=== PATIENT | male | born 1935 | race Caucasian/White ===

== ENCOUNTER 2016-12-06 17:19 | Inpatient (IN) | payer OTHER, MEDICARE ==
[~2016-12-06] VITALS: Ht 170.2 cm; Wt 90.3 kg
--- NOTE | 2016-12-06 17:21 | NUR ---
PT AWARE OF 2.5 HR WAIT.
--- NOTE | 2016-12-06 17:58 | NUR ---
PT TO ED FOR "KINDEY PROBLEMS" PER PT AND FAMILY PT HAS BEEN HAVING INCREASING BACK PAIN FOR PAST 3 -4 DAYS, SAW PCP WHO DID BLOODWORK AND XRAY AND TOLD PT "YOURE IN KIDNEY FAILURE GO TO THE HOSPITAL." PT'S ONLY COMPLAINT IS BACK PAIN, REPORTING NORMAL URINATION, REPORTING MINIMAL SWELLING IN BILATERAL LEGS. ALSO REPROTING GENERALIZED FATIGUE "BUT I THINK ITS FROM TAKING TRAMADOL"
--- NOTE | 2016-12-06 19:15 | ED GENERAL ADULT ---
History of Present Illness General Chief Complaint: General Adult Stated Complaint: ? KIDNEY FAILURE Source: patient, family Exam Limitations: no limitations Vital Signs & Intake/Output Vital Signs & Intake/Output Vital Signs Date Time Temp Pulse Resp B/P Pulse O2 O2 Flow FiO2 Ox Delivery Rate 12/07 0035 98.9 12/07 0000 102.2 96 20 122/57 91 Room Air 12/06 2158 102.0 98 20 114/57 94 Room Air 12/06 1950 100.1 89 18 132/61 98 Room Air 12/06 1759 96.1 62 18 160/92 99 Room Air ED Intake and Output 12/07 0000 12/06 1200 Intake Total Output Total 275 Balance -275 Output, Urine 275 Patient 190 lb Weight Allergies Coded Allergies: No Known Allergies (12/06/16) Reconcile Medications Aspirin (Ecotrin*) 81 MG TABLET.DR 1 TAB PO DAILY HEART/BLOOD (Reported) Atorvastatin Calcium 40 MG TABLET 1 TAB PO DAILY CHOLESTEROL (Reported) Hydrochlorothiazide 12.5 MG TABLET 1 TAB PO DAILY DIURETIC (Reported) Moexipril HCl 15 MG TABLET 1 TAB PO DAILY BP (Reported) Tramadol HCl 50 MG TABLET 1 TAB PO Q6P PRN PAIN (Reported) Verapamil HCl (Verapamil ER Pm) (Unknown Strength) CAP24H.PCT (Unknown Dose) PO DAILY BP (Reported) Triage Note: PT TO ED FOR "KINDEY PROBLEMS" PER PT AND FAMILY PT HAS BEEN HAVING INCREASING BACK PAIN FOR PAST 3 -4 DAYS, SAW PCP WHO DID BLOODWORK AND XRAY AND TOLD PT "YOURE IN KIDNEY FAILURE GO TO THE HOSPITAL." PT'S ONLY COMPLAINT IS BACK PAIN, REPORTING NORMAL URINATION, REPORTING MINIMAL SWELLING IN BILATERAL LEGS. ALSO REPROTING GENERALIZED FATIGUE "BUT I THINK ITS FROM TAKING TRAMADOL" Triage Nurses Notes Reviewed? yes Onset: Gradual Timing: recent history Injury Environment: home No Modifying Factors: none HPI: 81-year-old male comes into emergency room for evaluation of general weakness and leg swelling bilaterally. Patient reportedly is in some Sick any failure. The primary care doctor KHLOE called here in the emergency room to talk a provider about admitting the patient for further evaluation. This is new onset for the patient. Denies any shortness of breath or chest pain. Patient admits to some right flank pain which is new. Denies any other associated symptoms. (AZUL HOLLIS,DEYA) Past History Travel History Traveled to [place] past 21 day No Medical History Any Pertinent Medical History? see below for history Cardiovascular: hypertension, HIGH CHOLESTEROL Musculoskeletal: CHRONIC BACK PAIN Surgical History Surgical History: non-contributory Psychosocial History What is your primary language Romanian Tobacco Use: Never used ETOH Use: denies use Illicit Drug Use: denies illicit drug use Family History Hx Contributory? No (DEYA NEAL) Review of Systems Review of Systems Constitutional: Reports: see HPI. EENTM: Reports: no symptoms. Respiratory: Reports: no symptoms. Cardiovascular: Reports: no symptoms. GI: Reports: no symptoms. Genitourinary: Reports: see HPI. Musculoskeletal: Reports: see HPI. Skin: Reports: no symptoms. Neurological/Psychological: Reports: no symptoms. Hematologic/Endocrine: Reports: no symptoms. Immunologic/Allergic: Reports: no symptoms. All Other Systems: Reviewed and Negative (DEYA NEAL) Physical Exam Physical Exam General Appearance: no apparent distress, alert Head: atraumatic, normal appearance Eyes: Bilateral: normal appearance, EOMI. Ears, Nose, Throat: normal pharynx, normal ENT inspection Neck: normal inspection, full range of motion Respiratory: normal breath sounds, no respiratory distress Gastrointestinal: soft Back: normal inspection Extremities: pedal edema (2+) Neurologic/Psych: awake, alert, oriented x 3, normal gait, normal mood/affect Skin: intact, normal color Core Measures ACS in differential dx? No CVA/TIA Diagnosis: No Severe Sepsis Present: No Septic Shock Present: No (DEYA NEAL) Progress Differential Diagnoses I considered the following diagnoses in my evaluation of the patient: Dehydration, post subjective uropathy, chronic kidney disease, renal tubular acidosis, nephritis, sepsis, electrolyte imbalance, Plan of Care: Orders Procedure Date/time Status Heart Healthy Diet 12/07 B Active Add-on Test (ER Only) 12/07 0014 Active Pathway - chart 12/07 5 Active House Staff 12/07 5 Active Code Status 12/07 5 Active Weight 12/07 UNK Active VTE Mechanical Prophylaxis 12/07 UNK Active Intake & Output 12/07 UNK Active CULTURE,URINE 12/06 2324 Active BLOOD CULTURE 12/06 2324 Active URINE TOTAL PROT/CREAT RATIO 12/06 2324 Complete CBC WITHOUT DIFFERENTIAL 12/06 2324 Complete BASIC ELECTROLYTES PLUS BUN&CR 12/06 2324 Complete ECHOCARDIOGRAM 12/06 2324 Active Saline Lock 12/06 2242 Active Misc Message 12/06 2242 Active ED Holding Orders 12/06 2242 Active Admit to inpatient 12/06 2242 Active Vital Signs 12/06 2242 Active Code Status 12/06 2242 Complete Patient Data 12/06 221 Active RAPID VIRAL INFLUENZA A 12/06 2208 Complete Intake & Output 12/06 2200 Active Add-on Test (ER Only) 12/06 193 Active TROPONIN LEVEL 12/06 1920 Complete B-TYPE NATRIURETIC PEP (BNP) 12/06 1920 Complete URINALYSIS 12/06 183 Complete EKG 12/06 182 Active COMPREHENSIVE METABOLIC PANEL 12/06 175 Complete CBC WITHOUT DIFFERENTIAL 12/06 175 Complete Current Medications Sig/Lacey Start time Last Medication Dose Stop Time Status Admin Oxycodone/ 1 TAB ONCE ONE 12/07 214 CAN Acetaminophen 12/07 215 (Percocet) Tramadol HCl 50 MG Q6 PRN 12/07 214 AC (Ultram) Laboratory Tests 12/07/16 0019: Ur Random Creatinine Pending, U Random Total Protein Pending 12/07/16 0019: Ur Random Creatinine 50.9 12/06/162338: Anion Gap 14, Estimated GFR 36 L, BUN/Creatinine Ratio 39.4 H, CBC w Diff NO MAN DIFF REQ, RBC 3.78 L, MCV 85.1, MCH 28.7, RDW 14.4, MPV 7.0 L, Gran % 93.3 H, Lymphocytes % 2.6 L, Monocytes % 4.1, Eosinophils % 0, Basophils % 0 L, Absolute Granulocytes 12.9 H, Absolute Lymphocytes 0.4 L, Absolute Monocytes 0.6, Absolute Eosinophils 0, Absolute Basophils 0, PUBS MCHC 33.7 12/06/16 2030: Urine Color YEL, Urine Clarity CLEAR, Urine pH 6.0, Ur Specific [place] 1.020, Urine Protein TRACE H, Urine Ketones NEG, Urine Nitrite NEG, Urine Bilirubin NEG, Urine Urobilinogen 0.2, Ur Leukocyte Esterase NEG, Ur Microscopic SEDIMENT EXAMINED, Urine RBC 1-3, Urine WBC 3-5 H, Urine Hemoglobin TRACE-INTACT H, Urine Glucose NEG 12/06/161920: Anion Gap 15, Estimated GFR 31 L, BUN/Creatinine Ratio 39.0 H, Glucose 125 H, Calcium 8.9, Total Bilirubin 0.6, AST 31, ALT 24, Alkaline Phosphatase 119, Troponin I 0.07, Lyv-I-Achkxknskbv Pept 1530 H, Total Protein 7.1, Albumin 3.3 L, Globulin 3.8, Albumin/Globulin Ratio 0.9 L, CBC w Diff NO MAN DIFF REQ, RBC 4.08 L, MCV 86.4, MCH 28.6, RDW 14.6 H, MPV 6.8 L, Gran % 91.5 H, Lymphocytes % 2.3 L, Monocytes % 6.0, Eosinophils % 0.2, Basophils % 0 L, Absolute Granulocytes 12.3 H, Absolute Lymphocytes 0.3 L, Absolute Monocytes 0.8 H, Absolute Eosinophils 0, Absolute Basophils 0, PUBS MCHC 33.0 Microbiology 12/07 18 URINE ROUT: Urine Culture - RECD 12/06 2358 BLOOD: Blood Culture - RECD 12/06 2338 BLOOD: Blood Culture - RECD Diagnostic Imaging: Viewed by Me: CT Scan, Ultrasound. Discussed w/RAD: CT Scan, Ultrasound. Radiology Impression: SERVICE DATE: 12/06/16 EXAM TYPE: US - US-EXT BILAT VENOUS DOPPLER EXAMINATION: US TRIPLEX LOWER EXTREMITY, BILATERAL CLINICAL INFORMATION: Bilateral lower extremity swelling. COMPARISON: None. TECHNIQUE: Color-flow triplex imaging with spectral analysis and compression Doppler were performed on the bilateral lower extremities. FINDINGS: Respiratory variation, normal compression and augmented flow are noted throughout the bilateral lower extremities. The visualized common femoral, superficial femoral, profunda femoral, popliteal and mid calf peroneal and posterior tibial venous segments demonstrate no evidence of deep venous thrombosis. A 1.6 x 0.9 x 1.9 cm Malcolm's cyst is identified within the left popliteal fossa. There is no right-sided Malcolm's cyst. IMPRESSION: No evidence of deep venous thrombosis involving the bilateral lower extremity veins. There is a 1.6 x 0.9 x 1.9 cm Malcolm's cyst within the left popliteal fossa. DICTATED BY: DARRIAN JENNINGS MD DATE/TIME DICTATED:12/06/161925 Initial ED EKG: normal intervals, normal p-waves, normal sinus rhythm, rate (99) (AZUL HOLLIS,DEYA) Departure Departure Disposition: STILL A PATIENT Condition: Stable Clinical Impression Primary Impression: Acute renal failure Referrals: MICHEAL ERICKSON,CARMINE Nunez (PCP/Family) Departure Forms: Customer Survey General Discharge Information Admission Note Spoke With: STEVEN MILAN MD Documentation of Exam: Documentation of any treatments & extenuating circumstances including Concerns Regarding Discharge (functional status, medication knowledge or non-compliance, living conditions, etc.) that warrant an admission rather than observation: Patient will require further workup for renal failure. Repeat labs. Renal consultation. IV fluids. (DEYA NEAL) PA/MACHINE PACK ASSEMBLER Co-Sign Statement Statement: ED Attending supervision documentation- [] I saw and evaluated the patient. I have also reviewed all the pertinent lab results and diagnostic results. I agree with the findings and the plan of care as documented in the PA's/MACHINE PACK ASSEMBLER's documentation. [x] I have reviewed the ED Record and agree with the PA's/MACHINE PACK ASSEMBLER's documentation. [] Additions or exceptions (if any) to the PAs/MACHINE PACK ASSEMBLER's note and plan are summarized below: [] (TRINITY ERICKSON,OMAIRA Hunter) Critical Care Note Critical Care Note Critical Care Time: non-applicable (DEYA NEAL)
--- NOTE | 2016-12-06 19:24 | NUR ---
PT TO AND FROM CAT SCAN VIA STRETCHER, IV EST #20 IN RIGHT FOREARM, BLOOD DRAWN AND SENT TO LAB BY THIS RN -SST,DANITZA,HELLEN,ZAPATA
[2016-12-06] MEDS ORDERED: VERAPAMIL ER P300 MG PO (19:31)
[2016-12-06 19:32] LABS: ABSOLUTE BASOPHIL COUNT 0 /CUMM (0.0-0.2); ABSOLUTE EOSINOPHIL COUNT 0 /CUMM (0.0-0.7); ABSOLUTE GRANULOCYTE CT 12.3 /CUMM (1.4-6.5); ABSOLUTE LYMPH COUNT 0.3 /CUMM (1.2-3.4); ABSOLUTE MONOCYTE COUNT 0.8 /CUMM (0.10-0.60); BASOPHIL % 0 % (0.0-2.0); EOSINOPHIL % 0.2 % (0-5); HEMATOCRIT 35.2 % (42-52); MEAN CORPUSCULAR HGB 28.6 PG (27.0-31.0); MEAN CORPUSCULAR VOLUME 86.4 FL (80.0-94.0); MEAN PLATELET VOLUME 6.8 FL (7.4-10.4); PLATELET COUNT 273 /CUMM (130-400); RBC DISTRIBUTION WIDTH 14.6 % (11.5-14.5); RED BLOOD CELL CT 4.08 /CUMM (4.70-6.10); WHITE BLOOD CELL COUNT 13.4 /CUMM (4.8-10.8)
[2016-12-06] MEDS ORDERED: HYDROCHLOROTH12.5 M2 PO (19:32)
[2016-12-06] MEDS ORDERED: ATORVASTATIN CA40 M1 PO (19:32)
--- NOTE | 2016-12-06 19:32 | ULTRASOUND REPORT ---
EXAMINATION: US TRIPLEX LOWER EXTREMITY, BILATERAL CLINICAL INFORMATION: Bilateral lower extremity swelling. COMPARISON: None. TECHNIQUE: Color-flow triplex imaging with spectral analysis and compression Doppler were performed on the bilateral lower extremities. FINDINGS: Respiratory variation, normal compression and augmented flow are noted throughout the bilateral lower extremities. The visualized common femoral, superficial femoral, profunda femoral, popliteal and mid calf peroneal and posterior tibial venous segments demonstrate no evidence of deep venous thrombosis. A 1.6 x 0.9 x 1.9 cm Malcolm's cyst is identified within the left popliteal fossa. There is no right-sided Malcolm's cyst. IMPRESSION: No evidence of deep venous thrombosis involving the bilateral lower extremity veins. There is a 1.6 x 0.9 x 1.9 cm Malcolm's cyst within the left popliteal fossa.
[2016-12-06] MEDS ORDERED: TRAMADOL HCL50 M1 PO (19:36)
[2016-12-06] MEDS ORDERED: MOEXIPRIL HCL15 MG PO (19:36)
[2016-12-06] MEDS ORDERED: ASPIRIN EC81 M1 PO (19:37)
[2016-12-06 19:47] LABS: GRANULOCYTE % 91.5 % (42.2-75.2)
--- NOTE | 2016-12-06 20:32 | NUR ---
URINE TRIO SENT
--- NOTE | 2016-12-06 20:32 | NUR ---
PT GIVEN WATER
--- NOTE | 2016-12-06 22:01 | CT SCAN REPORT ---
EXAMINATION: CT ABDOMEN AND PELVIS WITHOUT CONTRAST CLINICAL INFORMATION: Back pain. Kidney failure. COMPARISON: None. TECHNIQUE: Multidetector volumetric imaging was performed from the superior aspect of the liver through the pubic symphysis. Sagittal and coronal reformatted images were obtained on the technologist's workstation. DLP: 458.58 mGy-cm. FINDINGS: LUNG BASES: Vascular calcification of coronary arteries. LIVER, GALLBLADDER, AND BILIARY TREE: The liver is normal in size, shape, and attenuation. No focal hepatic lesion or biliary ductal dilatation is present. Multiple partially calcified gallstones within the gallbladder. Largest gallstone measuring about 2 cm in diameter. No edema around the gallbladder. No bile duct dilatation. The extrahepatic CBD measures 6 mm. PANCREAS: Unremarkable. SPLEEN: Unremarkable. ADRENAL GLANDS: Unremarkable. KIDNEYS AND URETERS: The kidneys are normal in size, shape, and attenuation. No hydronephrosis, hydroureter, or calculi seen. No perinephric stranding. BLADDER: Unremarkable. GASTROINTESTINAL TRACT: No acute change of bowel. No diverticula. No bowel obstruction. No bowel wall thickening or edema. Moderate volume of scattered stool in the colon. The appendix is normal. No inflammatory change of the mesentery. There is a small amount of free fluid in the cul-de-sac ABDOMINAL WALL: Small fat-containing left inguinal hernia. LYMPH NODES: Normal. VASCULAR: Atherosclerotic vascular wall calcifications of the aorta and iliac vessels. No aneurysm. PELVIC VISCERA: Unremarkable. OSSEOUS STRUCTURES: Marked multilevel low degenerative change of spine with disc height narrowing and endplate spurs and facet joint arthrosis. IMPRESSION: No acute abnormality CT scan abdomen and pelvis.
--- NOTE | 2016-12-06 22:08 | NUR ---
TELMA FALK AT BEDSIDE FOR DISCUSSION ON PLAN OF CARE
--- NOTE | 2016-12-06 22:22 | NUR ---
PT MEDICATED WITH NS PER EMAR
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
--- NOTE | 2016-12-06 23:17 | NUR ---
REPORT RECEIVED. URINATED 175ML IN THE BOTTLE. ASSISTED BACK TO BED. RECHECKED TEMP 102.2 TYMPANIC. TYLENOL 650MG PO GIVEN PER VERBAL ORDER FROM HOUSE STAFF.
--- NOTE | 2016-12-06 23:32 | NUR ---
PT'S ASSIGNMENT [id number]
[2016-12-06 23:49] LABS: ABSOLUTE BASOPHIL COUNT 0 /CUMM (0.0-0.2); ABSOLUTE EOSINOPHIL COUNT 0 /CUMM (0.0-0.7); ABSOLUTE GRANULOCYTE CT 12.9 /CUMM (1.4-6.5); ABSOLUTE LYMPH COUNT 0.4 /CUMM (1.2-3.4); ABSOLUTE MONOCYTE COUNT 0.6 /CUMM (0.10-0.60); BASOPHIL % 0 % (0.0-2.0); EOSINOPHIL % 0 % (0-5); HEMATOCRIT 32.2 % (42-52); MEAN CORPUSCULAR HGB 28.7 PG (27.0-31.0); MEAN CORPUSCULAR HGB CONC 33.7 G/DL (33.0-37.0); MEAN CORPUSCULAR VOLUME 85.1 FL (80.0-94.0); PLATELET COUNT 251 /CUMM (130-400); RBC DISTRIBUTION WIDTH 14.4 % (11.5-14.5); RED BLOOD CELL CT 3.78 /CUMM (4.70-6.10); WHITE BLOOD CELL COUNT 13.8 /CUMM (4.8-10.8)
[2016-12-06 23:50] LABS: GRANULOCYTE % 93.3 % (42.2-75.2)
--- NOTE | 2016-12-06 23:57 | RADIOLOGY REPORT ---
EXAMINATION: XR PORTABLE CHEST CLINICAL INFORMATION: Pulmonary edema. COMPARISON: None. TECHNIQUE: Portable view of the chest was obtained. 11:39 PM FINDINGS: Lung volume is low. This causes crowding of the bronchovascular markings. Bibasilar streaky opacities of subsegmental atelectasis. No dense consolidation or pleural effusion. IMPRESSION: Low lung volume causing prominence of the central hilar vessels. No overt pulmonary edema.
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
--- NOTE | 2016-12-07 00:27 | NUR ---
PT'S DAUGHTER FREDI WILLIAMSON CAN BE REACHED AT [phone]
--- NOTE | 2016-12-07 00:37 | NUR ---
FLU SWAB SENT.
[2016-12-07 00:45] VITALS: BP 110/70
--- NOTE | 2016-12-07 00:51 | NUR ---
BRNEDA SAVAGE Nurse Note by: TAYLOR CHONG I agree with the [employer] findings/evaluation of this patient's condition. Entered by: TAYLOR CHONG Date: 12/07/16 Time: 0051
--- NOTE | 2016-12-07 02:57 | RADIOLOGY REPORT ---
EXAMINATION: XR KNEE, LEFT CLINICAL INFORMATION: Left knee pain. Fever to 102. Swelling of the left knee. COMPARISON: None. TECHNIQUE: AP, oblique, and lateral views of the left knee. FINDINGS: No acute fracture or malalignment. Mild degenerative arthritis in lateral compartment is characterized and marginal osteophytes, joint space narrowing, and subchondral sclerosis. Mild degenerative arthritis is also present in the patellofemoral compartment. There is a small to moderate joint effusion. No osteolysis identified. Subcutaneous edema and soft tissue swelling are present at the knee diffusely. Calcific atherosclerosis is present within the popliteal and runoff arteries. IMPRESSION: 1. Small to moderate left knee joint effusion. Sensitivity for septic joint by radiograph is limited, though there should be enough fluid in the suprasellar pouch to allow for definitive evaluation by joint aspiration. 2. No acute fracture or malalignment. 3. 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
--- NOTE | 2016-12-07 06:00 | Admission Certification ---
Admission Certification Certification Statement - As attending physician, I certify that at the time of - admission, based on clinical presentation, severity of - symptoms, need for further diagnostic testing and - therapeutic interventions, and risk of adverse outcomes - without in-hospital treatment, in my clinical assessment, - this patient requires an acute hospital stay for a minimum - of two nights or longer. I have also considered psychsocial - factors such as support system, advanced age, financial - issues, cognitive issues, and failed out-patient treatments, - past re-admission history, safety of patient, and lack of - compliance as applicable. Specific rationale supporting this admission is: Acute renal failure in the setting of NSAID use. Fever of unclear etiology, needs further evaluation.
[2016-12-07 08:09] VITALS: BP 110/60
--- NOTE | 2016-12-07 10:00 | PN- Housestaff ---
Subjective Follow-up For: Acute renal failure Bilateral LE edema left knee effusionBilateral LE edema Subjective: Seen and examined patient, offers no complaints. Denies any pain in the knee, fever, chills, chest pain, shortness of breath Review of Systems Constitutional: Denies: chills, diaphoresis, fever, malaise, weakness, unexplained weight loss. Cardiovascular: Denies: chest pain, edema, orthopena, palpitations, peripheral edema, syncope. Respiratory: Denies: cough, hemoptysis, orthopnea, short of breath, sputum production, stridor, wheezing. Objective Last 24 Hrs of Vital Signs/I&O Vital Signs Date Time Temp Pulse Resp B/P Pulse O2 O2 Flow FiO2 Ox Delivery Rate 12/07 0809 97.6 80 20 110/60 93 Room Air 12/07 0045 97 Nasal 2.0L Cannula 12/07 0045 98.7 78 18 110/70 97 Nasal 2.0L Cannula 12/07 0035 98.9 12/07 0000 102.2 96 20 122/57 91 Room Air 12/06 2158 102.0 98 20 114/57 94 Room Air 12/06 1950 100.1 89 18 132/61 98 Room Air 12/06 1759 96.1 62 18 160/92 99 Room Air Intake & Output 12/07 1600 12/07 0800 12/07 0000 Intake Total 750 Output Total 500 275 Balance 250 -275 Intake, IV 150 Intake, Oral 600 Output, Urine 500 275 Patient 192 lb 190 lb Weight Physical Exam General Appearance: Alert, Oriented X3, Cooperative, No Acute Distress Cardiovascular: Regular Rate, Normal S1, Normal S2 Lungs: Clear to Auscultation, Normal Air Movement Extremities: mild swelling in left knee, no increased erythema, warmth noted. normal ROM Current Medications: Current Medications Sig/Lacey Start time Last Medication Dose Route Stop Time Status Admin Acetaminophen 0 .STK-MED ONE 12/06 2321 DC PO Heparin Sodium 5,000 UNIT Q8 12/07 0030 AC 12/07 (Porcine) SC 1249 Lidocaine 20 ML ONCE ONE 12/07 1230 DC ID 12/07 1231 Oxycodone/ 1 TAB ONCE ONE 12/07 0215 CAN Acetaminophen PO 12/07 0216 Oxycodone/ 1 TAB Q6P PRN 12/07 0215 AC 12/07 Acetaminophen PO 1253 Sodium Chloride 1,000 ML Q13H 12/07 0545 AC 12/07 IV 12/07 1844 0714 Sodium Chloride 1,000 ML BOLUS ONE 12/06 2215 DC 12/06 IV 12/06 2314 2222 Tramadol HCl 50 MG Q6 PRN 12/07 0215 AC PO Last 24 Hrs of Lab/Edilberto Results Last 24 Hrs of Labs/Mics: Laboratory Tests 12/07/16 1013: Fluid WBC Cancelled, Fld Total RBCs Counted Cancelled 12/07/16 0957: Troponin I 0.09 12/07/16 0019: Ur Random Creatinine 50.9 12/07/16 0019: Ur Random Creatinine 55.0, U Random Total Protein 9.5, Protein/Creatinin Ratio 0.1 12/06/16 2339: Anion Gap 14, Estimated GFR 36 L, BUN/Creatinine Ratio 39.4 H, CBC w Diff NO MAN DIFF REQ, RBC 3.78 L, MCV 85.1, MCH 28.7, RDW 14.4, MPV 7.0 L, Gran % 93.3 H, Lymphocytes % 2.6 L, Monocytes % 4.1, Eosinophils % 0, Basophils % 0 L, Absolute Granulocytes 12.9 H, Absolute Lymphocytes 0.4 L, Absolute Monocytes 0.6, Absolute Eosinophils 0, Absolute Basophils 0, PUBS MCHC 33.7 12/06/16 2030: Urine Color YEL, Urine Clarity CLEAR, Urine pH 6.0, Ur Specific [place] 1.020, Urine Protein TRACE H, Urine Ketones NEG, Urine Nitrite NEG, Urine Bilirubin NEG, Urine Urobilinogen 0.2, Ur Leukocyte Esterase NEG, Ur Microscopic SEDIMENT EXAMINED, Urine RBC 1-3, Urine WBC 3-5 H, Urine Hemoglobin TRACE-INTACT H, Urine Glucose NEG 12/06/16 1921: Anion Gap 15, Estimated GFR 31 L, BUN/Creatinine Ratio 39.0 H, Glucose 125 H, Calcium 8.9, Total Bilirubin 0.6, AST 31, ALT 24, Alkaline Phosphatase 119, Troponin I 0.07, Dgx-A-Jwjstluhnwj Pept 1530 H, Total Protein 7.1, Albumin 3.3 L, Globulin 3.8, Albumin/Globulin Ratio 0.9 L, CBC w Diff NO MAN DIFF REQ, RBC 4.08 L, MCV 86.4, MCH 28.6, RDW 14.6 H, MPV 6.8 L, Gran % 91.5 H, Lymphocytes % 2.3 L, Monocytes % 6.0, Eosinophils % 0.2, Basophils % 0 L, Absolute Granulocytes 12.3 H, Absolute Lymphocytes 0.3 L, Absolute Monocytes 0.8 H, Absolute Eosinophils 0, Absolute Basophils 0, PUBS MCHC 33.0 Microbiology 12/07 1222 BODY FLUID: Body Fluid Culture - COLB 12/07 1222 BODY FLUID: Gram Stain - COLB 12/07 1013 BODY FLUID: Body Fluid Culture - CAN Cancelled: DUPLICATE ORDER -- CANCEL PER NOEMY RN 12/07 1013 BODY FLUID: Gram Stain - CAN Cancelled: DUPLICATE ORDER -- CANCEL PER NOEMY RN 12/07 0019 URINE ROUT: Urine Culture - RECD 12/06 2359 BLOOD: Blood Culture - WKST 12/06 2339 BLOOD: Blood Culture - RES Assessment/Plan Assessment: 81-year-old gentleman with past history significant for hypertension and hyperlipidemia, current admission for worsening low back pain and left knee pain affecting ambulation. Was found to be febrile with elevated white count, elevated proBNP. Lower extremity Dopplers ruled out DVT showed left popliteal Malcolm's cyst CT abdomen pelvis were negative, left knee x-ray shows small to moderate left knee joint effusion. This morning patient is not complaining of knee pain, and offers no complaints. Plan fever ? septic knee blood cultures 1/2 growing GPC in chain and pairs after his knee is tapped will start on IV 1g vancomycin q24hrs left knee effusion elevated wbc, afebrile currently Ortho on board, appreciate recs will obtain knee tap and send for culture, cell count b/l Lateral lower extremity swelling Echo and Cardio consult placed for possible right heart failure trop neg x2, no new EKG changes Acute renal failure Creatinine improved with hydration, will continue to monitor Gives history of increased NSAIDs use, possibly secondary to analgesics use Hold NSAIDs and other nephrotoxics Continue to hold Hydrochlorothiazide and moexipril dvt ppx hep sc DNR/DNI Problem List: 1. HLD (hyperlipidemia) 2. HTN (hypertension) 3. Superficial burn of back 4. Bilateral lower extremity edema Pain Ratin Pain Location: na Pain Goal: Pain 4 or less Pain Plan: current regimen Tomorrow's Labs & Rationales: vanco level ? septic jt cbc/bep
--- NOTE | 2016-12-07 10:58 | NUR ---
NURSING NOTE: 1000; PATIENT HAS NOT HAD A BOWEL MOVEMENT IN TWO DAYS; OFFERED PATIENT TO CONTACT DR TO ORDER STOOL SOFTENERS AND HE REFUSED. WILL CONTINUE TO MONITOR.
--- NOTE | 2016-12-07 15:06 | PN- Att Addend ---
Attending Addendum Attending Brief Note Patient seen and examined. Plan of care discussed with the medical team and the patient. Available lab work and radiology test reports were reviewed. She continues to have left knee pain and swelling. Denies any fever. No other complaints today. Vital Signs Date Time Temp Pulse Resp B/P Pulse O2 O2 Flow FiO2 Ox Delivery Rate 12/07 808 97.6 80 20 110/60 93 Room Air 12/07 0045 97 Nasal 2.0L Cannula 12/07 0045 98.7 78 18 110/70 97 Nasal 2.0L Cannula 12/07 0035 98.9 12/07 0000 102.2 96 20 122/57 91 Room Air 12/06 2158 102.0 98 20 114/57 94 Room Air 12/06 1950 100.1 89 18 132/61 98 Room Air 12/06 1759 96.1 62 18 160/92 99 Room Air Intake & Output 12/07 1600 12/07 0800 12/07 0000 Intake Total 1080 750 Output Total 1150 500 275 Balance -70 250 -275 Intake, IV 600 150 Intake, Oral 480 600 Output, Urine 1150 500 275 Patient 192 lb 190 lb Weight Exam: General: Patient awake alert oriented without any distress CVS: S1 plus S2 without any murmur or gallops Chest: Few scattered crepitation without any wheeze. There is no respiratory distress. 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 Range of motion is intact. Laboratory Tests 12/07 12/07 12/07 12/07 1013 0957 0019 0019 Chemistry Troponin I (<0.11 ng/ml) 0.09 Other Body Source Fluid WBC Cancelled Fld Total RBCs Counted Cancelled Urines Ur Random Creatinine (mg/dL) 50.9 55.0 U Random Total Protein (0 - 12 mg/dL) 9.5 Protein/Creatinin Ratio (< 0.2) 0.1 12/069 2030 Chemistry Sodium (137 - 145 mmol/L) 140 Potassium (3.5 - 5.1 mmol/L) 4.2 Chloride (98 - 107 mmol/L) 99 Carbon Dioxide (22 - 30 mmol/L) 27 Anion Gap (5 - 16) 14 BUN (9 - 20 mg/dL) 71 H Creatinine (0.7 - 1.2 mg/dL) 1.8 H Estimated GFR (>60 ml/min) 36 L BUN/Creatinine Ratio (7 - 25 %) 39.4 H Hematology CBC w Diff NO MAN DIFF REQ WBC (4.8 - 10.8 /CUMM) 13.8 H RBC (4.70 - 6.10 /CUMM) 3.78 L Hgb (14.0 - 18.0 G/DL) 10.9 L Hct (42 - 52 %) 32.2 L MCV (80.0 - 94.0 FL) 85.1 MCH (27.0 - 31.0 PG) 28.7 RDW (11.5 - 14.5 %) 14.4 Plt Count (130 - 400 /CUMM) 251 MPV (7.4 - 10.4 FL) 7.0 L Gran % (42.2 - 75.2 %) 93.3 H Lymphocytes % (20.5 - 51.1 %) 2.6 L Monocytes % (1.7 - 9.3 %) 4.1 Eosinophils % (0 - 5 %) 0 Basophils % (0.0 - 2.0 %) 0 L Absolute Granulocytes (1.4 - 6.5 /CUMM) 12.9 H Absolute Lymphocytes (1.2 - 3.4 /CUMM) 0.4 L Absolute Monocytes (0.10 - 0.60 /CUMM) 0.6 Absolute Eosinophils (0.0 - 0.7 /CUMM) 0 Absolute Basophils (0.0 - 0.2 /CUMM) 0 PUBS MCHC (33.0 - 37.0 G/DL) 33.7 Urines Urine Color (YEL,AMB,STR) YEL Urine Clarity (CLEAR) CLEAR Urine pH (5.0 - 8.0) 6.0 Ur Specific [place] (1.001 - 1.035) 1.020 Urine Protein (NEG,<30 MG/DL) TRACE H Urine Ketones (NEG) NEG Urine Nitrite (NEG) NEG Urine Bilirubin (NEG) NEG Urine Urobilinogen (0.1 - 1.0 EU/dl) 0.2 Ur Leukocyte Esterase (NEG) NEG Ur Microscopic SEDIMENT EXAMINED Urine RBC (0 - 5 /HPF) 1-3 Urine WBC (0 - 2 /HPF) 3-5 H Urine Hemoglobin (NEG) TRACE-INTACT H Urine Glucose (N MG/DL) NEG 12/06 192 Chemistry Sodium (137 - 145 mmol/L) 140 Potassium (3.5 - 5.1 mmol/L) 3.9 Chloride (98 - 107 mmol/L) 96 L Carbon Dioxide (22 - 30 mmol/L) 29 Anion Gap (5 - 16) 15 BUN (9 - 20 mg/dL) 82 H Creatinine (0.7 - 1.2 mg/dL) 2.1 H Estimated GFR (>60 ml/min) 31 L BUN/Creatinine Ratio (7 - 25 %) 39.0 H Glucose (65 - 99 mg/dL) 125 H Calcium (8.4 - 10.2 mg/dL) 8.9 Total Bilirubin (0.2 - 1.3 mg/dL) 0.6 AST (17 - 59 U/L) 31 ALT (21 - 72 U/L) 24 Alkaline Phosphatase (< 127 U/L) 119 Troponin I (<0.11 ng/ml) 0.07 Dxp-[id number]-[id number] Pept (<125 pg/mL) 1530 H Total Protein (6.3 - 8.2 g/dL) 7.1 Albumin (3.5 - 5.0 g/dL) 3.3 L Globulin (1.9 - 4.2 gm/dL) 3.8 Albumin/Globulin Ratio (1.1 - 2.2 %) 0.9 L Hematology CBC w Diff NO MAN DIFF REQ WBC (4.8 - 10.8 /CUMM) 13.4 H RBC (4.70 - 6.10 /CUMM) 4.08 L Hgb (14.0 - 18.0 G/DL) 11.6 L Hct (42 - 52 %) 35.2 L MCV (80.0 - 94.0 FL) 86.4 MCH (27.0 - 31.0 PG) 28.6 RDW (11.5 - 14.5 %) 14.6 H Plt Count (130 - 400 /CUMM) 273 MPV (7.4 - 10.4 FL) 6.8 L Gran % (42.2 - 75.2 %) 91.5 H Lymphocytes % (20.5 - 51.1 %) 2.3 L Monocytes % (1.7 - 9.3 %) 6.0 Eosinophils % (0 - 5 %) 0.2 Basophils % (0.0 - 2.0 %) 0 L Absolute Granulocytes (1.4 - 6.5 /CUMM) 12.3 H Absolute Lymphocytes (1.2 - 3.4 /CUMM) 0.3 L Absolute Monocytes (0.10 - 0.60 /CUMM) 0.8 H Absolute Eosinophils (0.0 - 0.7 /CUMM) 0 Absolute Basophils (0.0 - 0.2 /CUMM) 0 PUBS MCHC (33.0 - 37.0 G/DL) 33.0 Microbiology Date/Time Procedure - Status Source Growth 12/07 1222 Body Fluid Culture - COLB BODY FLUID 12/07 1222 Gram Stain - COLB BODY FLUID 12/07 1013 Body Fluid Culture - CAN BODY FLUID Cancelled: DUPLICATE ORDER -- CANCEL PER NOEMY RN 12/07 1013 Gram Stain - CAN BODY FLUID Cancelled: DUPLICATE ORDER -- CANCEL PER NOEMY RN 12/07 0019 Urine Culture - RECD URINE ROUT 12/06 2359 Blood Culture - WKST BLOOD 12/06 2339 Blood Culture - RES BLOOD Knee x-ray 1. Small to moderate left knee joint effusion. Sensitivity for septic joint by radiograph is limited, though there should be enough fluid in the suprasellar pouch to allow for definitive evaluation by joint aspiration. 2. No acute fracture or malalignment. 3. 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 No overt pulmonary edema Assessment and problem list * Rule out septic arthritis left knee * Left knee effusion * Fever * Acute renal failure * History of hypertension Plan * Orthopedic evaluation for left knee; patient is a left knee effusion to rule out septic arthritis * Continue IV fluids for acute renal failure; recheck creatinine tomorrow * If Gram stain on the fluid is positive please start empiric antibiotic depending on her Gram stain report * If neutrophil count on the aspirate from left knee is more than 50,000 start empiric antibiotic
[2016-12-07 16:14] VITALS: BP 130/62
--- NOTE | 2016-12-07 17:50 | NUR ---
DR MCDOWELL CAME TO DRAW FLUID FROM PATIENT'S L KNEE PATIENT TOLERATED PROCEDURE WELL APPLIED ICE AFTERWARDS CONTINUE TO MONITOR MD DAWKINS NOTIFIED, AND ORDER FOR IV VANCO STARTED
--- NOTE | 2016-12-07 17:53 | Cons- Orthopedic ---
General Information and HPI Consulting Request Date of Consult: 12/07/16 Requested By: KAYLI ERICKSON,STEVEN Reason for Consult: LEFT KNEE EFFUSION WANT TO RULE OUT INFECTIOUS PROCESS History of Present Illness: PAIN LEFT KNEE HAD EFFUSION WITH ELEVATED WHITE BLOODCELL COUNT CALLED TO TAP THE LEFT KNEE Allergies/Medications Allergies: Coded Allergies: No Known Allergies (12/06/16) Home Med List: Aspirin (Ecotrin*) 81 MG TABLET.DR 1 TAB PO DAILY HEART/BLOOD (Reported) Atorvastatin Calcium 40 MG TABLET 1 TAB PO DAILY CHOLESTEROL (Reported) Hydrochlorothiazide 12.5 MG TABLET 1 TAB PO DAILY DIURETIC (Reported) Moexipril HCl 15 MG TABLET 1 TAB PO DAILY BP (Reported) Tramadol HCl 50 MG TABLET 1 TAB PO Q6P PRN PAIN (Reported) Verapamil HCl (Verapamil ER Pm) (Unknown Strength) CAP24H.PCT (Unknown Dose) PO DAILY BP (Reported) Past History Medical History Cardiovascular: hypertension, hyperlipidemia Surgical History Pertinent Surgical History: non-contributory Family History Relations & Conditions If Any: Relation not specified for: *No pertinent family history Psychosocial History Where Do You Live? Home Who Do You Live With? self Smoking Status: Former Smoker (Remote History) ETOH Use: denies use Illicit Drug Use: denies illicit drug use Functional Ability ADLs Independent: dressing, eating, toileting, bathing. IADLs Independent: shopping, housework, finances, food prep, telephone, transportation , medication admin. 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 Exam & Diagnostic Data Vital Signs and I&O Vital Signs Date Time Temp Pulse Resp B/P Pulse O2 O2 Flow FiO2 Ox Delivery Rate 12/07 1614 98.2 85 19 130/62 93 Room Air 12/07 0809 97.6 80 20 110/60 93 Room Air 12/07 0045 97 Nasal 2.0L Cannula 12/07 0045 98.7 78 18 110/70 97 Nasal 2.0L Cannula 12/07 0035 98.9 12/07 0000 102.2 96 20 122/57 91 Room Air 12/06 2158 102.0 98 20 114/57 94 Room Air 12/06 1950 100.1 89 18 132/61 98 Room Air 12/06 1759 96.1 62 18 160/92 99 Room Air Intake & Output 12/07 1600 12/07 0800 01/07 0000 12/06 1600 12/06 0800 12/06 0000 Intake Total 1080 750 Output Total 1150 500 275 Balance -70 250 -275 Intake, IV 600 150 Intake, Oral 480 600 Output, Urine 1150 500 275 Patient 192 lb 190 lb Weight Physical Exam: LEFT KNEE MODERATE EFFUSION MILD PAIN HAD EXCELLENT rom ALL LIGAMENTS OK NO ERYTHEMA Assessment/Plan Assessment/Plan 81 YEAR OLD MALE WITH LEFT KNEE EFFUSION; EVAL FOR SEPTIC ARTHRITIS PLAN: LEFT KNEE EFFUSION ASPIRATED. SENT FOR FLUID CULTURE, GRAM STAIN, CRYSTALS, CELL COUNT Consult Acknowledgment - Thank you for your consult request.
[2016-12-07 18:03] LABS: PT 15.6 SEC (9.4-12.5)
[2016-12-07 23:58] VITALS: BP 128/60
--- NOTE | 2016-12-08 | NUR ---
NURSING NOTE: MST WAS TAKING PTS VITALS AND INFORMED ME PTS O2 SAT WAS 85/86 ON RA AND HR 101, ALL OTHER VSS. THIS RN CAME TO ASSESS PT AND PUT PT ON 2L NC TO MAINTAIN SATS ABOVE 90%. PT LUNGS WERE DIMINISHED WITH SOME WHEEZING NOTED TO UPPER LOBES. PT DENIES SOB AND DIFFICULTY BREATHING O2 WAS RECHECKED A FEW MINUTES LATER AND O2 SAT CAME UP TO 94% ON 2L. PT HR 103. 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 WILL CONTINUE TO MONITOR.
[2016-12-08 08:20] LABS: ABSOLUTE BASOPHIL COUNT 0 /CUMM (0.0-0.2); ABSOLUTE EOSINOPHIL COUNT 0 /CUMM (0.0-0.7); ABSOLUTE GRANULOCYTE CT 9.7 /CUMM (1.4-6.5); ABSOLUTE LYMPH COUNT 0.7 /CUMM (1.2-3.4); ABSOLUTE MONOCYTE COUNT 1.2 /CUMM (0.10-0.60); BASOPHIL % 0.1 % (0.0-2.0); EOSINOPHIL % 0.2 % (0-5); GRANULOCYTE % 83.5 % (42.2-75.2); HEMATOCRIT 31.3 % (42-52); MEAN CORPUSCULAR HGB CONC 33.1 G/DL (33.0-37.0); MEAN CORPUSCULAR VOLUME 87.6 FL (80.0-94.0); MEAN PLATELET VOLUME 7.1 FL (7.4-10.4); PLATELET COUNT 217 /CUMM (130-400); RBC DISTRIBUTION WIDTH 14.6 % (11.5-14.5); RED BLOOD CELL CT 3.57 /CUMM (4.70-6.10); WHITE BLOOD CELL COUNT 11.6 /CUMM (4.8-10.8)
[2016-12-08 08:49] VITALS: BP 140/64
--- NOTE | 2016-12-08 08:53 | PN- Housestaff ---
Subjective Follow-up For: Acute renal failure Bilateral LE edema left knee effusionBilateral LE edema Subjective: Seen and examined patient, and planes of mild pain in his left knee. Denies fever, chills, shortness of breath. Review of Systems Constitutional: Denies: chills, diaphoresis, fever, malaise, weakness, unexplained weight loss. Cardiovascular: Denies: chest pain, edema, orthopena, palpitations, peripheral edema, syncope. Respiratory: Denies: cough, hemoptysis, orthopnea, short of breath, sputum production, stridor, wheezing. Musculoskeletal: Reports: joint pain. Objective Last 24 Hrs of Vital Signs/I&O Vital Signs Date Time Temp Pulse Resp B/P Pulse O2 O2 Flow FiO2 Ox Delivery Rate 12/08 0849 98.4 96 20 140/64 90 Room Air 12/08 0006 103 20 94 Nasal 2.0L Cannula 12/08 0002 94 Nasal 2.0L Cannula 12/08 0000 94 Nasal 2.0L Cannula 12/07 2358 97.8 101 20 128/60 86 Room Air 12/07 1614 98.2 85 19 130/62 93 Room Air 12/07 1600 93 Room Air Intake & Output 12/08 1600 12/08 0800 12/08 0000 Intake Total 2670 865 8264 Output Total 625 800 700 Balance 595 -200 620 Intake, IV 600 600 720 Intake, Oral 620 0 600 Number 1 Bowel Movements Output, Urine 625 800 700 Patient 191 lb Weight Physical Exam General Appearance: Alert, Oriented X3, No Acute Distress Cardiovascular: Normal S1, Normal S2 Lungs: Clear to Auscultation, Normal Air Movement Extremities: decreased swelling of left knee noted no erythema or increased warmth, patient able to flex knee Current Medications: Current Medications Sig/Lacey Start time Last Medication Dose Route Stop Time Status Admin Ampicillin 2,000 MG Q6H 12/08 1400 AC 12/08 Sodium Chloride 100 ML IV 1426 Aspirin Buffered 81 MG DAILY 12/09 1000 AC PO Atorvastatin Calcium 40 MG DAILY@1700 12/07 1735 AC 12/07 PO 2105 Heparin Sodium 5,000 UNIT Q8 12/07 0030 AC 12/08 (Porcine) SC 1211 Oxycodone/ 1 TAB Q6P PRN 12/07 0215 AC 12/08 Acetaminophen PO 1104 Patient Medication 1 UNIT ONE NR 12/07 1745 DC Teaching ED 12/07 1800 Silver Sulfadiazine 1 MIGNON BID 12/07 1415 AC 12/08 TOP 0824 Sodium Chloride 1,000 ML Q13H 12/07 2145 DC 12/07 IV 12/08 1044 2203 Sodium Chloride 1,000 ML Q13H 12/07 0545 DC 12/07 IV 12/07 1844 0714 Tramadol HCl 50 MG Q6 PRN 12/07 0215 AC PO Vancomycin HCl 1,000 MG DAILY@1800 12/07 1800 DC 12/07 Sodium Chloride 250 ML IV 1816 Last 24 Hrs of Lab/Edilberto Results Last 24 Hrs of Labs/Mics: Laboratory Tests 12/08/16 0628: Anion Gap 12, Estimated GFR > 60, BUN/Creatinine Ratio 30.9 H, Uric Acid 6.7, CBC w Diff MAN DIFF ORDERED, RBC 3.57 L, MCV 87.6, MCH 29.0, RDW 14.6 H, MPV 7.1 L, Gran % 83.5 H, Lymphocytes % 5.9 L, Monocytes % 10.3 H, Eosinophils % 0.2, Basophils % 0.1, Absolute Granulocytes 9.7 H, Segmented Neutrophils 83 H, Absolute Lymphocytes 0.7 L, Lymphocytes 6 L, Monocytes 4, Absolute Monocytes 1.2 H, Eosinophils 1, Absolute Eosinophils 0, Absolute Basophils 0, Metamyelocytes 3 H, Myelocytes 3 H, Platelet Estimate ADEQUATE, Polychromasia 1+, Hypochromic-Microcytic 1+, Anisocytosis 1+, PUBS MCHC 33.1, Random Vancomycin 6.2 12/07/16 1750: Fluid WBC 89478 H, Fld Total RBCs Counted 610 H 12/07/16 1750: Lymphocytes 3, % Normal PMNs 94, Fluid Glucose ND, Fluid Total Protein ND 12/07/16 1632: PT 15.6 H, INR 1.49 H Microbiology 12/08 1450 BLOOD: Blood Culture - RECD 12/08 1440 BLOOD: Blood Culture - RECD 12/07 1749 BODY FLUID: Body Fluid Culture - RES 12/07 1749 BODY FLUID: Gram Stain - RES Assessment/Plan Assessment: 81-year-old gentleman with past history significant for hypertension and hyperlipidemia, current admission for worsening low back pain and left knee pain affecting ambulation. Was found to be febrile with elevated white count, elevated proBNP. Lower extremity Dopplers ruled out DVT showed left popliteal Malcolm's cyst CT abdomen pelvis were negative, left knee x-ray shows small to moderate left knee joint effusion status post tap. Plan Left knee effusion Afebrile overnight blood cultures 1/2 growing GPC in chain and pairs and the second set growing alpha strep Body fluid shows WBC of 285,000 which rules out septic joint, body fluid culture prelim shows no growth. Ortho on board, appreciate recs We'll obtain ID consult Patient's mobility had decreased will obtain PT to evaluate and treat b/l Lateral lower extremity swelling Echo and Cardio consult placed for possible right heart failure trop neg x2, no new EKG changes Acute renal failure Creatinine improved with hydration, will continue to monitor Gives history of increased NSAIDs use, possibly secondary to analgesics use Hold NSAIDs and other nephrotoxics Continue to hold Hydrochlorothiazide and moexipril dvt ppx hep sc DNR/DNI Problem List: 1. Acute renal failure 2. HTN (hypertension) 3. HLD (hyperlipidemia) 4. Effusion of left knee joint Pain Ratin Pain Location: Not applicable Pain Goal: Pain 4 or less Pain Plan: Current regimen Tomorrow's Labs & Rationales: Septic joint will obtain BP and CBC
--- NOTE | 2016-12-08 12:46 | PN- Orthopedic ---
Subjective Subjective: Pt continues to c/o L knee pain. He is able to bear weight, but not without pain. Blood cultures are positive for alpha strep, but knee fluid cultures have no growth x 1 day. WBC count of fluid was 28K, which is not indicative of infection. He also c/o R sided lower back pain. Objective Vital Signs and I&Os Vital Signs Date Time Temp Pulse Resp B/P Pulse O2 O2 Flow FiO2 Ox Delivery Rate 12/08 0749 98.4 96 20 140/64 90 Room Air 12/08 0006 103 20 94 Nasal 2.0L Cannula 12/08 0002 94 Nasal 2.0L Cannula 12/08 0000 94 Nasal 2.0L Cannula 12/07 2358 97.8 101 20 128/60 86 Room Air 12/07 1614 98.2 85 19 130/62 93 Room Air 12/07 1600 93 Room Air Intake & Output 12/08 1600 12/08 0800 12/08 0000 12/07 1600 12/07 0800 12/07 0000 Intake Total 600 1320 1080 750 Output Total 674 162 2344 500 275 Balance -200 620 -70 250 -275 Intake, IV 600 720 600 150 Intake, Oral 0 600 480 600 Number 1 Bowel Movements Output, Urine 063 464 7286 500 275 Patient 191 lb 192 lb 190 lb Weight Physical Exam: General: Pt is awake and alert. Sitting in chair. NAD. Ext: L knee is mildly swollen and tender. No significant erythema. He has a few superficial wounds on his mid back, which started as a burn from a heating pad. There is mild exudate and erythema , but no significant drainage. LE sensation is intact. Strength of DF and PF are 5/5 bilaterally. No calf tenderness or edema noted bilaterally. *Of note, carlos catheter remains in place and appears to contain sediment in the tubing. Results Last 48 Hours of Labs: Laboratory Tests 12/08 12/07 12/07 0628 1750 1750 Chemistry Sodium (137 - 145 mmol/L) 143 Potassium (3.5 - 5.1 mmol/L) 3.5 Chloride (98 - 107 mmol/L) 100 Carbon Dioxide (22 - 30 mmol/L) 31 H Anion Gap (5 - 16) 12 BUN (9 - 20 mg/dL) 34 H Creatinine (0.7 - 1.2 mg/dL) 1.1 Estimated GFR (>60 ml/min) > 60 BUN/Creatinine Ratio (7 - 25 %) 30.9 H Hematology CBC w Diff MAN DIFF ORDERED WBC (4.8 - 10.8 /CUMM) 11.6 H RBC (4.70 - 6.10 /CUMM) 3.57 L Hgb (14.0 - 18.0 G/DL) 10.3 L Hct (42 - 52 %) 31.3 L MCV (80.0 - 94.0 FL) 87.6 MCH (27.0 - 31.0 PG) 29.0 RDW (11.5 - 14.5 %) 14.6 H Plt Count (130 - 400 /CUMM) 217 MPV (7.4 - 10.4 FL) 7.1 L Gran % (42.2 - 75.2 %) 83.5 H Lymphocytes % (20.5 - 51.1 %) 5.9 L Monocytes % (1.7 - 9.3 %) 10.3 H Eosinophils % (0 - 5 %) 0.2 Basophils % (0.0 - 2.0 %) 0.1 Absolute Granulocytes (1.4 - 6.5 /CUMM) 9.7 H Segmented Neutrophils (42.2 - 75.2 %) 83 H Absolute Lymphocytes (1.2 - 3.4 /CUMM) 0.7 L Lymphocytes (20.5 - 51.1 %) 6 L 3 Monocytes (1.7 - 9.3 %) 4 Absolute Monocytes (0.10 - 0.60 /CUMM) 1.2 H Eosinophils (0 - 5.0 %) 1 Absolute Eosinophils (0.0 - 0.7 /CUMM) 0 Absolute Basophils (0.0 - 0.2 /CUMM) 0 Metamyelocytes (0.0 - 1.0 %) 3 H Myelocytes (0 - 0 %) 3 H % Normal PMNs (%) 94 Platelet Estimate (ADEQUATE) ADEQUATE Polychromasia 1+ Hypochromic-Microcytic 1+ Anisocytosis 1+ PUBS MCHC (33.0 - 37.0 G/DL) 33.1 Other Body Source Fluid WBC (0 - 5 /CUMM) 42825 H Fld Total RBCs Counted (0 /CUMM) 610 H Fluid Glucose (mg/dL) ND Fluid Total Protein (g/dL) ND Toxicology Random Vancomycin (ug/ml) 6.2 01/12/07 1632 1013 0957 0019 0019 Chemistry Troponin I (<0.11 ng/ml) 0.09 Coagulation PT (9.4 - 12.5 SEC) 15.6 H INR (0.90 - 1.17) 1.49 H Other Body Source Fluid WBC Cancelled Fld Total RBCs Counted Cancelled Urines Ur Random Creatinine (mg/dL) 50.9 55.0 U Random Total Protein (0 - 12 mg/dL) 9.5 Protein/Creatinin Ratio (< 0.2) 0.1 12/06 12/06 4089 2030 Chemistry Sodium (137 - 145 mmol/L) 140 Potassium (3.5 - 5.1 mmol/L) 4.2 Chloride (98 - 107 mmol/L) 99 Carbon Dioxide (22 - 30 mmol/L) 27 Anion Gap (5 - 16) 14 BUN (9 - 20 mg/dL) 71 H Creatinine (0.7 - 1.2 mg/dL) 1.8 H Estimated GFR (>60 ml/min) 36 L BUN/Creatinine Ratio (7 - 25 %) 39.4 H Hematology CBC w Diff NO MAN DIFF REQ WBC (4.8 - 10.8 /CUMM) 13.8 H RBC (4.70 - 6.10 /CUMM) 3.78 L Hgb (14.0 - 18.0 G/DL) 10.9 L Hct (42 - 52 %) 32.2 L MCV (80.0 - 94.0 FL) 85.1 MCH (27.0 - 31.0 PG) 28.7 RDW (11.5 - 14.5 %) 14.4 Plt Count (130 - 400 /CUMM) 251 MPV (7.4 - 10.4 FL) 7.0 L Gran % (42.2 - 75.2 %) 93.3 H Lymphocytes % (20.5 - 51.1 %) 2.6 L Monocytes % (1.7 - 9.3 %) 4.1 Eosinophils % (0 - 5 %) 0 Basophils % (0.0 - 2.0 %) 0 L Absolute Granulocytes (1.4 - 6.5 /CUMM) 12.9 H Absolute Lymphocytes (1.2 - 3.4 /CUMM) 0.4 L Absolute Monocytes (0.10 - 0.60 /CUMM) 0.6 Absolute Eosinophils (0.0 - 0.7 /CUMM) 0 Absolute Basophils (0.0 - 0.2 /CUMM) 0 PUBS MCHC (33.0 - 37.0 G/DL) 33.7 Urines Urine Color (YEL,AMB,STR) YEL Urine Clarity (CLEAR) CLEAR Urine pH (5.0 - 8.0) 6.0 Ur Specific [place] (1.001 - 1.035) 1.020 Urine Protein (NEG,<30 MG/DL) TRACE H Urine Ketones (NEG) NEG Urine Nitrite (NEG) NEG Urine Bilirubin (NEG) NEG Urine Urobilinogen (0.1 - 1.0 EU/dl) 0.2 Ur Leukocyte Esterase (NEG) NEG Ur Microscopic SEDIMENT EXAMINED Urine RBC (0 - 5 /HPF) 1-3 Urine WBC (0 - 2 /HPF) 3-5 H Urine Hemoglobin (NEG) TRACE-INTACT H Urine Glucose (N MG/DL) NEG 12/06 1921 Chemistry Sodium (137 - 145 mmol/L) 140 Potassium (3.5 - 5.1 mmol/L) 3.9 Chloride (98 - 107 mmol/L) 96 L Carbon Dioxide (22 - 30 mmol/L) 29 Anion Gap (5 - 16) 15 BUN (9 - 20 mg/dL) 82 H Creatinine (0.7 - 1.2 mg/dL) 2.1 H Estimated GFR (>60 ml/min) 31 L BUN/Creatinine Ratio (7 - 25 %) 39.0 H Glucose (65 - 99 mg/dL) 125 H Calcium (8.4 - 10.2 mg/dL) 8.9 Total Bilirubin (0.2 - 1.3 mg/dL) 0.6 AST (17 - 59 U/L) 31 ALT (21 - 72 U/L) 24 Alkaline Phosphatase (< 127 U/L) 119 Troponin I (<0.11 ng/ml) 0.07 Exg-A-Dpovrncbphe Pept (<125 pg/mL) 1530 H Total Protein (6.3 - 8.2 g/dL) 7.1 Albumin (3.5 - 5.0 g/dL) 3.3 L Globulin (1.9 - 4.2 gm/dL) 3.8 Albumin/Globulin Ratio (1.1 - 2.2 %) 0.9 L Hematology CBC w Diff NO MAN DIFF REQ WBC (4.8 - 10.8 /CUMM) 13.4 H RBC (4.70 - 6.10 /CUMM) 4.08 L Hgb (14.0 - 18.0 G/DL) 11.6 L Hct (42 - 52 %) 35.2 L MCV (80.0 - 94.0 FL) 86.4 MCH (27.0 - 31.0 PG) 28.6 RDW (11.5 - 14.5 %) 14.6 H Plt Count (130 - 400 /CUMM) 273 MPV (7.4 - 10.4 FL) 6.8 L Gran % (42.2 - 75.2 %) 91.5 H Lymphocytes % (20.5 - 51.1 %) 2.3 L Monocytes % (1.7 - 9.3 %) 6.0 Eosinophils % (0 - 5 %) 0.2 Basophils % (0.0 - 2.0 %) 0 L Absolute Granulocytes (1.4 - 6.5 /CUMM) 12.3 H Absolute Lymphocytes (1.2 - 3.4 /CUMM) 0.3 L Absolute Monocytes (0.10 - 0.60 /CUMM) 0.8 H Absolute Eosinophils (0.0 - 0.7 /CUMM) 0 Absolute Basophils (0.0 - 0.2 /CUMM) 0 PUBS MCHC (33.0 - 37.0 G/DL) 33.0 Microbiology: 12/06 blood culture #1-alpha strep 12/06 blood culture #2-gram positive cocci 12/07 urine culture-NG x 1 day 12/07 gram stain of L knee fluid aspirate: many WBC's, no organisms identified. 12/07 Culture of L knee fluid aspirate: NG x 1 day 12/07 WBC count of L knee fluid aspirate: 28,500 Assessment/Plan Assessment/Plan Pt is an 81 yo M with a hx of HTN and HLD, who is now HD #2 with acute kidney injury and L knee pain. WBC of L knee aspirate is not indicative of infection. Gram stain is negative and cultures show NG x 1 day. Pt has been afebrile x 24 hours, but Blood cultures are positive. No indication for surgery at this time. Would recommend workup for another source of bacteremia. Suggest f/u of urine culture as it appears to contain some sediment. He also has a back wound that appears slightly red. Continue silvadene to that area. F/u ID recommendations for IV antibiotics.
--- NOTE | 2016-12-08 13:24 | Cons- Infect Disease ---
General Information and HPI Consulting Request Date of Consult: 12/08/16 Requested By: KAYLI ERICKSON,STEVEN Reason for Consult: Positive blood culture for gram-positive cocci in pairs and chains Source of Information: patient Exam Limitations: poor historian History of Present Illness: This is an 81-year-old man with a history of hypertension who developed right lower back pain approximately 1 week prior to admission, for which he took Advil , with minimal relief, followed by the acute onset of left knee pain after sudden flexion of the knee several days prior to admission, associated with low- grade fevers, chills and bilateral lower extremity edema for several days, admitted on December 06 after he was sent by his primary care physician after blood work obtained the day prior to admission revealed an elevated BUN/ creatinine of 92 and 2.9. On admission he was febrile to 102.2. O2 sat 91% on room air. Laboratory data revealed a white blood cell count of 13,000, BUN/ creatinine 82 and 2.1, with normal liver enzymes, proBNP 1530. Urinalysis 1-3 RBC/3-5 WBCs. Dopplers of both lower extremities revealed a 1.6 x 0.9 x 1.9 cm Malcolm's cyst within the left popliteal fossa. Chest x-ray revealed bibasilar atelectasis. CT of the abdomen and pelvis without contrast was negative for any acute process. An x-ray of the left knee revealed a small to moderate joint effusion, with mild degenerative arthritis. A Jacobsen was inserted with 100 mL of urine obtained. On December 07 a left knee arthrocentesis was performed, revealing 28,000 white blood cells. One blood culture was reported positive for gram-positive cocci in pairs and chains, and he was begun on Vancomycin. This morning a second set of blood cultures was also reported positive for gram- positive cocci in pairs and chains. He has defervesced and white blood cell count has decreased. He still notes mild right lower back pain but does not report left knee pain. He denies any prior problems with his lower back or left knee. He reports no GI, or respiratory symptoms. He last had dental work 2 months prior to admission and denies any weight loss. Allergies/Medications Allergies: Coded Allergies: No Known Allergies (12/06/16) Home Med List: Aspirin (Ecotrin*) 81 MG TABLET.DR 1 TAB PO DAILY HEART/BLOOD (Reported) Atorvastatin Calcium 40 MG TABLET 1 TAB PO DAILY CHOLESTEROL (Reported) Hydrochlorothiazide 12.5 MG TABLET 1 TAB PO DAILY DIURETIC (Reported) Moexipril HCl 15 MG TABLET 1 TAB PO DAILY BP (Reported) Tramadol HCl 50 MG TABLET 1 TAB PO Q6P PRN PAIN (Reported) Verapamil HCl (Verapamil ER Pm) (Unknown Strength) CAP24H.PCT (Unknown Dose) PO DAILY BP (Reported) Past History Travel History Traveled to [place] past 21 day No Medical History Cardiovascular: hypertension, hyperlipidemia History of MRSA: No History of VRE: No History of CDIFF: No Isolation History: Standard Surgical History Surgical History: non-contributory Family History Relations & Conditions If Any: Relation not specified for: *No pertinent family history Psychosocial History Where Do You Live? Home Who Do You Live With? self Smoking Status: Former Smoker (Remote History) ETOH Use: denies use Illicit Drug Use: denies illicit drug use Functional Ability ADLs Independent: dressing, eating, toileting, bathing. IADLs Independent: shopping, housework, finances, food prep, telephone, transportation , medication admin. 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 Denies: unexplained weight loss. Cardiovascular: Reports: peripheral edema. Denies: chest pain. Respiratory: Denies: cough, short of breath. GI: Reports: no symptoms. Genitourinary: Reports: no symptoms. All Other Systems: Reviewed and Negative Exam & Diagnostic Data Last 24 Hrs of Vital Signs/I&O Vital Signs Date Time Temp Pulse Resp B/P Pulse O2 O2 Flow FiO2 Ox Delivery Rate 12/08 0849 98.4 96 20 140/64 90 Room Air 12/08 0006 103 20 94 Nasal 2.0L Cannula 12/08 0002 94 Nasal 2.0L Cannula 12/08 0000 94 Nasal 2.0L Cannula 12/07 2358 97.8 101 20 128/60 86 Room Air 12/07 1614 98.2 85 19 130/62 93 Room Air 12/07 1600 93 Room Air Intake & Output 12/08 1600 12/08 0800 12/08 0000 Intake Total 600 1320 Output Total 800 700 Balance -200 620 Intake, IV 600 720 Intake, Oral 0 600 Number 1 Bowel Movements Output, Urine 800 700 Patient 191 lb Weight Physical Exam Other Physical Findings: He is awake and alert in no acute distress. He is afebrile. Skin reveals left lower back excoriation. HEENT exam is negative with upper and lower dentures. Neck is supple with no adenopathy. Lungs mild bilateral inspiratory wheezes. Heart regular rhythm with a 1/6 systolic ejection murmur. Abdomen is soft, nontender with positive bowel sounds. Back no CVA tenderness. Extremities 1-2+ edema both lower extremities; left knee swelling, with no erythema or tenderness and with normal range of motion. Neuro is without focality. Jacobsen catheter is in place. Last 24 Hours of Lab Results: Laboratory Tests 12/08 12/07 12/07 0628 1750 1750 Chemistry Sodium (137 - 145 mmol/L) 143 Potassium (3.5 - 5.1 mmol/L) 3.5 Chloride (98 - 107 mmol/L) 100 Carbon Dioxide (22 - 30 mmol/L) 31 H Anion Gap (5 - 16) 12 BUN (9 - 20 mg/dL) 34 H Creatinine (0.7 - 1.2 mg/dL) 1.1 Estimated GFR (>60 ml/min) > 60 BUN/Creatinine Ratio (7 - 25 %) 30.9 H Hematology CBC w Diff MAN DIFF ORDERED WBC (4.8 - 10.8 /CUMM) 11.6 H RBC (4.70 - 6.10 /CUMM) 3.57 L Hgb (14.0 - 18.0 G/DL) 10.3 L Hct (42 - 52 %) 31.3 L MCV (80.0 - 94.0 FL) 87.6 MCH (27.0 - 31.0 PG) 29.0 RDW (11.5 - 14.5 %) 14.6 H Plt Count (130 - 400 /CUMM) 217 MPV (7.4 - 10.4 FL) 7.1 L Gran % (42.2 - 75.2 %) 83.5 H Lymphocytes % (20.5 - 51.1 %) 5.9 L Monocytes % (1.7 - 9.3 %) 10.3 H Eosinophils % (0 - 5 %) 0.2 Basophils % (0.0 - 2.0 %) 0.1 Absolute Granulocytes (1.4 - 6.5 /CUMM) 9.7 H Segmented Neutrophils (42.2 - 75.2 %) 83 H Absolute Lymphocytes (1.2 - 3.4 /CUMM) 0.7 L Lymphocytes (20.5 - 51.1 %) 6 L 3 Monocytes (1.7 - 9.3 %) 4 Absolute Monocytes (0.10 - 0.60 /CUMM) 1.2 H Eosinophils (0 - 5.0 %) 1 Absolute Eosinophils (0.0 - 0.7 /CUMM) 0 Absolute Basophils (0.0 - 0.2 /CUMM) 0 Metamyelocytes (0.0 - 1.0 %) 3 H Myelocytes (0 - 0 %) 3 H % Normal PMNs (%) 94 Platelet Estimate (ADEQUATE) ADEQUATE Polychromasia 1+ Hypochromic-Microcytic 1+ Anisocytosis 1+ PUBS MCHC (33.0 - 37.0 G/DL) 33.1 Other Body Source Fluid WBC (0 - 5 /CUMM) 90911 H Fld Total RBCs Counted (0 /CUMM) 610 H Fluid Glucose (mg/dL) ND Fluid Total Protein (g/dL) ND Toxicology Random Vancomycin (ug/ml) 6.2 12/07 1632 Coagulation PT (9.4 - 12.5 SEC) 15.6 H INR (0.90 - 1.17) 1.49 H Last 24 Hours of Edilberto Results: Blood cultures 2 December 06 positive for alpha strep Urine culture December 07 negative Rapid flu swab December 07 negative Left knee synovial fluid December 07 negative Diagnostic Data Recent Imaging Findings: Dopplers of both lower extremities revealed a 1.6 x 0.9 x 1.9 cm Malcolm's cyst within the left popliteal fossa. Chest x-ray revealed bibasilar atelectasis. CT of the abdomen and pelvis without contrast reveals multiple partially calcified gallstones, with no edema around the gallbladder or biliary ductal dilatation; marked multilevel degenerative change of the spine X-ray of the left knee revealed a small to moderate joint effusion, with mild degenerative arthritis. Assessment/Plan Assessment/Plan Impression: This is an 81-year-old man admitted on December 06 with a one week history of right lower back pain, several day history of left knee pain, associated with low-grade fevers, chills and malaise, with blood work obtained on the day prior to admission revealing acute kidney injury, found to be febrile with a mild leukocytosis, a left knee joint effusion and with blood cultures 2 reported positive for alpha strep. The source of his positive blood cultures is unclear at this time. He does not appear to have a septic left knee joint, with only 28 ,000 white blood cells in the synovial fluid, though this could represent seeding from another source. Other possible explanations for the left knee inflammation include a ruptured Malcolm's cyst, given the acute onset of his pain, osteoarthritis or gout. Endocarditis certainly must be considered, with the isolation of alpha strep, and he does report recent dental work. His right lower back pain is of unclear etiology, with no history of trauma and with no abnormal findings on the CT scan. His renal failure may be secondary to the Advil he has taken for the past week, and it appears to have resolved. Suggestion: 1. Repeat blood cultures 2 2. Echocardiogram 3. Follow-up left knee culture 4. Would add a uric acid to his recent blood work 5. Remove Jacobsen catheter 6. Discontinue Vancomycin 7. Begin Ampicillin 2 g IV every 6 hours Consult Acknowledgment - Thank you for your consult request.
--- NOTE | 2016-12-08 14:07 | PN- Att Addend ---
Attending Addendum Attending Brief Note Patient seen and examined. Plan of care discussed with the medical team and the patient. Available lab work and radiology test reports were reviewed. She continues to have left knee pain and swelling. Denies any fever. No other complaints today. His left knee was tapped by orthopedic yesterday. Vital Signs Date Time Temp Pulse Resp B/P Pulse O2 O2 Flow FiO2 Ox Delivery Rate 12/08 0749 98.4 96 20 140/64 90 Room Air 12/08 0006 103 20 94 Nasal 2.0L Cannula 12/08 0002 94 Nasal 2.0L Cannula 12/08 0000 94 Nasal 2.0L Cannula 12/07 2358 97.8 101 20 128/60 86 Room Air 12/07 1614 98.2 85 19 130/62 93 Room Air 12/07 1600 93 Room Air Intake & Output 12/08 1600 12/08 0800 12/08 0000 Intake Total 600 1320 Output Total 800 700 Balance -200 620 Intake, IV 600 720 Intake, Oral 0 600 Number 1 Bowel Movements Output, Urine 800 700 Patient 191 lb Weight Exam: General: Patient awake alert oriented without any distress CVS: S1 plus S2 without any murmur or gallops Chest: Few scattered crepitation without any wheeze. There is no respiratory distress. 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 Range of motion is intact. Laboratory Tests 12/08 12/07 12/07 0628 1750 1750 Chemistry Sodium (137 - 145 mmol/L) 143 Potassium (3.5 - 5.1 mmol/L) 3.5 Chloride (98 - 107 mmol/L) 100 Carbon Dioxide (22 - 30 mmol/L) 31 H Anion Gap (5 - 16) 12 BUN (9 - 20 mg/dL) 34 H Creatinine (0.7 - 1.2 mg/dL) 1.1 Estimated GFR (>60 ml/min) > 60 BUN/Creatinine Ratio (7 - 25 %) 30.9 H Uric Acid (3.5 - 8.5 mg/dL) 6.7 Hematology CBC w Diff MAN DIFF ORDERED WBC (4.8 - 10.8 /CUMM) 11.6 H RBC (4.70 - 6.10 /CUMM) 3.57 L Hgb (14.0 - 18.0 G/DL) 10.3 L Hct (42 - 52 %) 31.3 L MCV (80.0 - 94.0 FL) 87.6 MCH (27.0 - 31.0 PG) 29.0 RDW (11.5 - 14.5 %) 14.6 H Plt Count (130 - 400 /CUMM) 217 MPV (7.4 - 10.4 FL) 7.1 L Gran % (42.2 - 75.2 %) 83.5 H Lymphocytes % (20.5 - 51.1 %) 5.9 L Monocytes % (1.7 - 9.3 %) 10.3 H Eosinophils % (0 - 5 %) 0.2 Basophils % (0.0 - 2.0 %) 0.1 Absolute Granulocytes (1.4 - 6.5 /CUMM) 9.7 H Segmented Neutrophils (42.2 - 75.2 %) 83 H Absolute Lymphocytes (1.2 - 3.4 /CUMM) 0.7 L Lymphocytes (20.5 - 51.1 %) 6 L 3 Monocytes (1.7 - 9.3 %) 4 Absolute Monocytes (0.10 - 0.60 /CUMM) 1.2 H Eosinophils (0 - 5.0 %) 1 Absolute Eosinophils (0.0 - 0.7 /CUMM) 0 Absolute Basophils (0.0 - 0.2 /CUMM) 0 Metamyelocytes (0.0 - 1.0 %) 3 H Myelocytes (0 - 0 %) 3 H % Normal PMNs (%) 94 Platelet Estimate (ADEQUATE) ADEQUATE Polychromasia 1+ Hypochromic-Microcytic 1+ Anisocytosis 1+ PUBS MCHC (33.0 - 37.0 G/DL) 33.1 Other Body Source Fluid WBC (0 - 5 /CUMM) 51820 H Fld Total RBCs Counted (0 /CUMM) 610 H Fluid Glucose (mg/dL) ND Fluid Total Protein (g/dL) ND Toxicology Random Vancomycin (ug/ml) 6.2 12/07 1632 Coagulation PT (9.4 - 12.5 SEC) 15.6 H INR (0.90 - 1.17) 1.49 H Microbiology Date/Time Procedure - Status Source Growth 12/08 134 Blood Culture - ORD BLOOD 12/08 1343 Blood Culture - ORD BLOOD 12/07 1750 Body Fluid Culture - RES BODY FLUID 12/07 1750 Gram Stain - RES BODY FLUID Assessment and problem list * Rule out septic arthritis left knee- so far evidences against septic arthritis. His Gram stain is negative and culture so far is negative on the aspirate * Gram-positive sepsis rule out endocarditis * Left knee effusion * Fever * Acute renal failure * History of hypertension Plan * DC IV fluids * Case discussed with infectious disease. Patient will need echocardiogram to rule out endocarditis and possibly NOVA if trans thoracic echo is negative. * Start patient on ampicillin as per recommendation of infectious disease.
[2016-12-08 16:41] VITALS: BP 122/64
--- NOTE | 2016-12-08 19:00 | NUR ---
PATIENT'S PAGAN REMOVED AT 1900, ONCE HE RETURNED TO BED 125 CC OUT BEFORE REMOVAL DTV BY 0300 VOIDED VERY SMALL AMOUNT OF 30CC ONCE PAGAN WAS REMOVED
[2016-12-09 00:10] VITALS: BP 126/61
[2016-12-09 07:51] LABS: ABSOLUTE BASOPHIL COUNT 0 /CUMM (0.0-0.2); ABSOLUTE EOSINOPHIL COUNT 0.1 /CUMM (0.0-0.7); ABSOLUTE GRANULOCYTE CT 8.4 /CUMM (1.4-6.5); ABSOLUTE MONOCYTE COUNT 1.1 /CUMM (0.10-0.60); BASOPHIL % 0.2 % (0.0-2.0); EOSINOPHIL % 0.6 % (0-5); GRANULOCYTE % 79.6 % (42.2-75.2); HEMATOCRIT 31.8 % (42-52); MEAN CORPUSCULAR HGB 28.9 PG (27.0-31.0); MEAN CORPUSCULAR HGB CONC 33.1 G/DL (33.0-37.0); MEAN CORPUSCULAR VOLUME 87.4 FL (80.0-94.0); MEAN PLATELET VOLUME 6.9 FL (7.4-10.4); PLATELET COUNT 218 /CUMM (130-400); RBC DISTRIBUTION WIDTH 14.3 % (11.5-14.5); RED BLOOD CELL CT 3.64 /CUMM (4.70-6.10); WHITE BLOOD CELL COUNT 10.5 /CUMM (4.8-10.8)
[2016-12-09 09:20] VITALS: BP 130/72
--- NOTE | 2016-12-09 11:19 | PN- Orthopedic ---
Subjective Subjective: s/p L knee aspiration 12/07 Objective Vital Signs and I&Os Vital Signs Date Time Temp Pulse Resp B/P Pulse O2 O2 Flow FiO2 Ox Delivery Rate 12/09 0920 98.0 97 20 130/72 92 Room Air 12/09 0034 93 Room Air 12/09 0010 97.2 81 22 126/61 90 Room Air 12/09 0000 93 Room Air 12/08 1709 Room Air 12/08 1641 97.5 85 18 122/64 93 Room Air 12/08 1600 93 Room Air Intake & Output 12/09 1600 12/09 0800 12/09 0000 12/08 1600 12/08 0000 Intake Total 150 1320 8050 269 9109 Output Total 600 155 625 800 700 Balance -450 1165 595 -200 620 Intake, IV 150 720 600 600 720 Intake, Oral 600 620 0 600 Number 1 Bowel Movements Output, Urine 600 155 625 800 700 Patient 195 lb 191 lb Weight Physical Exam: afebrile joint cultures are no growth so far and fluid appeared clear Assessment/Plan Assessment/Plan Pt is an 81 yo M with a hx of HTN and HLD, who is now HD #3 with acute kidney injury and L knee pain. WBC of L knee aspirate is not indicative of infection. Gram stain is negative and cultures show NG x [address] Alford, there is no indication for surgery at this time. Recommendations for antiinflammatories as needed. Plan to follow up with Dr Alford in the office about 1 week after discharge - please have patient call to schedule an appointment. Re-consult if needed
--- NOTE | 2016-12-09 11:20 | PN- Housestaff ---
FRED DAWKINS 12/09/16 1120: Subjective Follow-up For: Acute renal failure Bilateral LE edema left knee effusionBilateral LE edema Subjective: Examined patient sitting in a chair by. [id number] at bedside. Offers no complaints states that his pain controlled at this time. Continues to be feel weaker than his baseline. Denies fever, chest pain, palpitations, shortness of breath. Review of Systems Constitutional: Denies: chills, diaphoresis, fever, malaise, weakness, unexplained weight loss. Cardiovascular: Denies: chest pain, edema, orthopena, palpitations, peripheral edema, syncope. Respiratory: Denies: hemoptysis, orthopnea, short of breath, sputum production, stridor, wheezing. Objective Last 24 Hrs of Vital Signs/I&O Vital Signs Date Time Temp Pulse Resp B/P Pulse O2 O2 Flow FiO2 Ox Delivery Rate 12/09 919 98.0 97 20 130/72 92 Room Air 12/09 0034 93 Room Air 12/09 0010 97.2 81 22 126/61 90 Room Air 12/09 0000 93 Room Air 12/08 1709 Room Air 12/08 1641 97.5 85 18 122/64 93 Room Air 12/08 1600 93 Room Air Intake & Output 12/09 1600 12/09 0800 12/09 0000 Intake Total 150 1320 Output Total 600 155 Balance -450 1165 Intake, IV 150 720 Intake, Oral 600 Output, Urine 600 155 Patient 195 lb Weight Physical Exam General Appearance: Alert, Oriented X3, Cooperative, No Acute Distress Skin: tears the skin on trunk does not look infected Cardiovascular: Regular Rate, Normal S1, Normal S2 Lungs: Clear to Auscultation, Normal Air Movement Extremities: no increased swelling erythema noticed on right knee Current Medications: Current Medications Sig/Lacey Start time Last Medication Dose Route Stop Time Status Admin Ampicillin 2,000 MG Q6H 12/08 1400 AC 12/09 Sodium Chloride 100 ML IV 0902 Aspirin Buffered 81 MG DAILY 12/09 1000 AC 12/09 PO 0902 Atorvastatin Calcium 40 MG DAILY@1700 12/07 1735 AC 12/08 PO 1630 Heparin Sodium 5,000 UNIT Q8 12/07 0030 AC 12/09 (Porcine) SC 0546 Oxycodone/ 1 TAB Q6P PRN 12/07 0215 AC 12/09 Acetaminophen PO 0858 Patient Medication 1 ED .STK-MED ONE 12/09 1349 DC Teaching ED 12/09 1350 Silver Sulfadiazine 1 MIGNON BID 12/07 1415 AC 12/09 TOP 0902 Tramadol HCl 50 MG Q6 PRN 12/07 0215 AC PO Assessment/Plan Assessment: 81-year-old gentleman with past history significant for hypertension and hyperlipidemia, current admission for worsening low back pain and left knee pain affecting ambulation. Was found to be febrile with elevated white count, elevated proBNP. Lower extremity Dopplers ruled out DVT showed left popliteal Malcolm's cyst CT abdomen pelvis were negative, left knee x-ray shows small to moderate left knee joint effusion status post tap. Blood cultures show alpha strep. Plan Left knee effusion Afebrile overnight Body fluid shows WBC of 28,500 (gout vs pseudogout).septic joint ruled out body fluid culture prelim shows no growth. No increase in uric acid Ortho on board, appreciate recs Follow-up with Dr Alford as outpatient 1 week after discharge Bacteremia Afebrile, white count trended down to normal blood cultures 2/2 growing GPC in chain and pairs and the second set growing alpha strep On IV ampicillin day 2 ID board appreciate recommendations, in view of recent dental work will obtain echocardiogram to rule out infective endocarditis Patient's mobility had decreased will obtain PT to evaluate and treat b/l Lateral lower extremity swelling Echo and Cardio consult placed for possible right heart failure trop neg x2, no new EKG changes Acute renal failure most likely prerenal azotemia secondary to analgesics use Hold NSAIDs and other nephrotoxics Continue to hold Hydrochlorothiazide and moexipril Hypertension/hyperlipidemia Continue Lipitor Burn Continue Silvadene cream dvt ppx hep sc DNR/DNI Problem List: 1. Acute renal failure 2. HTN (hypertension) 3. HLD (hyperlipidemia) 4. Bilateral lower extremity edema 5. Effusion of left knee joint Pain Ratin Pain Location: Back, knee Pain Goal: Pain 4 or less Pain Plan: Current regimen Tomorrow's Labs & Rationales: None required JONO ARCHER MD 12/09/16 1152: Attending MD Review Statement Attending Statement Attending Statement: examined this patient, discuss w/resident/PA/DEPARTMENT OPERATIONS MANAGER, agreed w/resident/PA/DEPARTMENT OPERATIONS MANAGER, reviewed EMR data (avail) Attending Assessment/Plan: 81M PMH HTN admitted initially for abnormal labs showing EVELIN with creatinine 2.9. Patient had been feeling right lower back pain for a week prior that has persisted but improved. He had mild bilataral lower extremity edema initially which has resolved. He currently feels well. Had a left knee effusion and underwent arthrocentesis on 12/07 which showed 28,000 WBC, cultures negative thus far. Blood cultures from 12/06 have grown alpha strep with no clear source. Had been started on Vancomycin empirically then switched to Ampicillin. Patient feels well today with mild back pain, creatinine normal, WBC improving. 1. Streptococcal bacteremia 2. EVELIN 3. Left knee effusion s/p arthrocentesis Plan - Obtain echocardiogram to evaluate for possible endocarditis. May consider NOVA if necessary - Continue to follow blood cultures. Re-culture if fever - Follow ID recommendations - Follow orthopedic recommendations - Continue home medications - DVT PPx
[2016-12-09 16:14] VITALS: BP 142/70
--- NOTE | 2016-12-09 17:58 | ECHOCARDIOGRAM REPORT ---
BRENDA SAVAGE Age: 81 : 1935 Gender: M Exam Date: 12/09/2016 12:55 Exam Location: [facility] Ht (in): 68 Wt (lb): 190 BSA: 2.05 BP: 130 / 72 Ordering Physician: GROVER BARTH MD Referring Physician: GROVER BARTH MD Technologist: Teodoro Campoverde Room Number: [id number] Indications: EVALUATION OF LV FUNCTION Rhythm: Sinus Technical Quality: Technically difficult study FINDINGS Left Ventricle Normal left ventricular size and wall thickness. Normal left ventricular ejection fraction visually estimated at 60 %. No obvious regional wall motion abnormalities. Abnormal relaxation filling pattern of the left ventricle for age (stage 1 diastolic dysfunction). Right Ventricle Right ventricle not well visualized, grossly normal. Right Atrium Normal right atrial size. Left Atrium Mild left atrial dilatation. Mitral Valve Mild thickening/calcification of the mitral valve leaflets. Trace mitral regurgitation. Aortic Valve Focal thickening of the aortic valve cusps. No aortic stenosis. Trace aortic regurgitation. Tricuspid Valve Structurally normal tricuspid valve. Trace tricuspid regurgitation. Right ventricular systolic pressure estimated to be elevated at 40 mmHg. Pulmonic Valve Pulmonic valve not well visualized, grossly normal. Trace pulmonic regurgitation. Pericardium No pericardial or pleural effusion. Great Vessels Normal size aortic root. CONCLUSIONS Normal left ventricular ejection fraction visually estimated at 60 Abnormal relaxation filling pattern of the left ventricle for age (stage 1 diastolic dysfunction). Mild left atrial dilatation. Mild thickening/calcification of the mitral valve leaflets. Trace mitral regurgitation. Focal thickening of the aortic valve cusps. No aortic stenosis. Trace aortic regurgitation. Right ventricular systolic pressure estimated to be elevated at 40 mmHg. Brennan Mendoza M.D. (Electronically Signed) Final Date: 09 December 2016 17:57 MEASUREMENTS (Male / Female) Normal Values 2D ECHO LV Diastolic Diameter PLAX 5.0 cm 4.2 - 5.9 / 3.9 - 5.3 cm LV Systolic Diameter PLAX 3.5 cm 2.1 - 4.0 cm LV Fractional Shortening PLAX 30.0 % 25 - 46 % LV Ejection Fraction 2D Teich 57.0 % IVS Diastolic Thickness 1.0 cm LVPW Diastolic Thickness 1.0 cm LV Relative Wall Thickness 0.4 LVOT Diameter 2.1 cm Aortic Root Diameter 3.3 cm LA Systolic Diameter LX 4.2 cm 3.0 - 4.0 / 2.7 - 3.8 cm LV Ejection Fraction MOD BP 56.7 % >= 55 % LV Diastolic Length 4C 9.0 cm 6.9 - 10.3 cm LV Diastolic Area 4C 38.3 cm LV Diastolic Volume MOD 4C 133.0 cm LV Ejection Fraction MOD 4C 57.9 % LV Stroke Volume MOD 4C 77.0 cm LV Systolic Length 4C 7.9 cm LV Systolic Area 4C 22.9 cm LV Systolic Volume MOD 4C 56.0 cm LV Ejection Fraction MOD 2C 54.2 % LV Diastolic Volume 4C AL 137.9 cm 85 - 139 / 69 - 109 cm LV Systolic Volume 4C AL 56.5 cm LV Ejection Fraction 4C AL 59.0 % LV Stroke Volume 4C AL 81.4 cm LV Ejection Fraction 2C AL 55.3 % LA Volume 77.0 cm 18 - 58 / 22 - 52 cm Ascending Aorta Diameter 3.1 cm DOPPLER AV Peak Velocity 152.0 cm/s AV Peak Gradient 9.2 mmHg AV Mean Velocity 109.0 cm/s AV Mean Gradient 5.0 mmHg AV Velocity Time Integral 28.0 cm LVOT Peak Velocity 121.0 cm/s LVOT Peak Gradient 5.9 mmHg LVOT Mean Velocity 71.3 cm/s LVOT Mean Gradient 2.0 mmHg LVOT Velocity Time Integral 24.6 cm LVOT Stroke Volume 85.2 cm AV Area Cont Eq vti 3.0 cm AV Area Cont Eq pk 2.8 cm Mitral E Point Velocity 102.3 cm/s MV Deceleration Time 92.7 ms TR Peak Velocity 290.0 cm/s TR Peak Gradient 33.6 mmHg Right Atrial Pressure 5.0 mmHg Pulmonary Artery Systolic Pressu 38.6 mmHg Right Ventricular Systolic Press 38.6 mmHg PV Peak Velocity 94.3 cm/s PV Peak Gradient 3.6 mmHg PV Mean Velocity 63.7 cm/s PV Mean Gradient 2.0 mmHg PV Velocity Time Integral 15.8 cm
[2016-12-10 00:17] VITALS: BP 138/62
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
[2016-12-10 08:26] VITALS: BP 152/70
--- NOTE | 2016-12-10 11:58 | PN- Infect Dx ---
Subjective Subjective: Afebrile. He does continue to note right lower back pain. He does not report left knee pain. Objective Last 24 Hrs of Vital Signs/I&O Vital Signs Date Time Temp Pulse Resp B/P Pulse O2 O2 Flow FiO2 Ox Delivery Rate 12/10 0826 98.5 90 22 152/70 91 Nasal 1.0L Cannula 12/10 0017 98.4 92 20 138/62 93 Nasal 1.0L Cannula 12/10 0000 90 Nasal 1.0L Cannula 12/09 1614 98.5 103 20 142/70 90 12/09 1449 Nasal 2.0L Cannula Intake & Output 12/10 1600 12/10 0800 12/10 0000 Intake Total 120 820 Output Total 200 950 Balance -80 -130 Intake, IV 100 Intake, Oral 120 720 Number 1 Bowel Movements Output, Urine 200 950 Patient 195 lb Weight Physical Exam Other Physical Findings: He appears comfortable in no acute distress Lungs scattered wheezes and crackles Heart slightly irregular rhythm with a 1/6 systolic ejection murmur Extremities left knee mild swelling, with no erythema or tenderness and with good range of motion Results Last 24 Hours of Lab Results: Laboratory Tests 12/09 0635 Chemistry Sodium (137 - 145 mmol/L) 144 Potassium (3.5 - 5.1 mmol/L) 3.7 Chloride (98 - 107 mmol/L) 100 Carbon Dioxide (22 - 30 mmol/L) 35 H Anion Gap (5 - 16) 9 BUN (9 - 20 mg/dL) 26 H Creatinine (0.7 - 1.2 mg/dL) 0.9 Estimated GFR (>60 ml/min) > 60 BUN/Creatinine Ratio (7 - 25 %) 28.9 H Hematology CBC w Diff NO MAN DIFF REQ WBC (4.8 - 10.8 /CUMM) 10.5 RBC (4.70 - 6.10 /CUMM) 3.64 L Hgb (14.0 - 18.0 G/DL) 10.5 L Hct (42 - 52 %) 31.8 L MCV (80.0 - 94.0 FL) 87.4 MCH (27.0 - 31.0 PG) 28.9 RDW (11.5 - 14.5 %) 14.3 Plt Count (130 - 400 /CUMM) 218 MPV (7.4 - 10.4 FL) 6.9 L Gran % (42.2 - 75.2 %) 79.6 H Lymphocytes % (20.5 - 51.1 %) 9.2 L Monocytes % (1.7 - 9.3 %) 10.4 H Eosinophils % (0 - 5 %) 0.6 Basophils % (0.0 - 2.0 %) 0.2 Absolute Granulocytes (1.4 - 6.5 /CUMM) 8.4 H Absolute Lymphocytes (1.2 - 3.4 /CUMM) 1.0 L Absolute Monocytes (0.10 - 0.60 /CUMM) 1.1 H Absolute Eosinophils (0.0 - 0.7 /CUMM) 0.1 Absolute Basophils (0.0 - 0.2 /CUMM) 0 PUBS MCHC (33.0 - 37.0 G/DL) 33.1 Last 24 Hours of Edilberto Results: Blood cultures December 06 positive for alpha strep sensitive to Penicillin Blood cultures December 08 one bottle positive for gram-positive cocci in chains Left knee synovial fluid December 07 negative Urine culture December 07 negative Recent Imaging Studies: Echocardiogram December 09 negative for any vegetation Assessment/Plan Impression: Alpha strep bacteremia with no obvious source in a patient presenting with a one -week history of right lower back pain, which persists, left knee swelling, with no evidence of a septic joint, and with acute renal failure, likely secondary to Advil, which has resolved. Must consider the possibility of endocarditis and, despite the negative transthoracic echocardiogram, feel that a NOVA will need to be done. 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 Suggestion: 1. Would pursue a NOVA 2. Consider MRI of the lumbosacral spine if NOVA negative 3. Continue Ampicillin
[2016-12-10 16:26] VITALS: BP 148/70
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
[2016-12-10 22:00] VITALS: BP 130/80
--- NOTE | 2016-12-10 22:00 | NUR ---
PT RR 40; 91 ON 1L NC; ALL OTHER VSS; O2 UP TO 2LNC; SATING 94; ACCOUNT SPECIALIST AND RT MADE AWARE OF FINDINGS; NO FURTHER ORDERS AT THIS TIME
[2016-12-10 23:58] VITALS: BP 146/76
--- NOTE | 2016-12-11 07:26 | PN- Housestaff ---
FRED DAWKINS 12/11/16 0726: Subjective Follow-up For: acute renal failure Bilateral LE edema left knee effusion Bilateral LE edema Subjective: Seen and examined patient. Offers no complaints. Denies fevers, shortness breath, chills. Review of Systems Constitutional: Denies: chills, diaphoresis, fever, malaise, weakness, unexplained weight loss. Cardiovascular: Denies: chest pain, edema, orthopena, palpitations, peripheral edema, syncope. Respiratory: Denies: cough, hemoptysis, orthopnea, short of breath, sputum production, stridor, wheezing. Objective Last 24 Hrs of Vital Signs/I&O Vital Signs Date Time Temp Pulse Resp B/P Pulse O2 O2 Flow FiO2 Ox Delivery Rate 12/11 0805 98.3 90 40 142/74 93 Nasal 2.0L Cannula 12/11 0000 Nasal 2.0L Cannula 12/10 2358 98.3 102 36 146/76 92 Nasal 2.0L Cannula 12/10 2200 98.8 78 40 130/80 94 Nasal 2.0L Cannula 12/10 1626 97.8 97 17 148/70 93 Room Air 12/10 1600 92 Nasal 1.0L Cannula Intake & Output 12/11 1600 12/11 0800 12/11 0000 Intake Total 260 700 Output Total 300 Balance -40 700 Intake, IV 140 100 Intake, Oral 120 600 Output, Urine 300 Patient 197 lb 195 lb Weight Physical Exam General Appearance: Alert, Oriented X3, Cooperative, No Acute Distress Skin: multi patches of 1st degree vasquez on back Cardiovascular: Regular Rate, Normal S1, Normal S2 Lungs: Clear to Auscultation Abdomen: Normal Bowel Sounds, Soft, No Tenderness Current Medications: Current Medications Sig/Lacey Start time Last Medication Dose Route Stop Time Status Admin Ampicillin 2,000 MG Q6H 12/08 1400 AC 12/11 Sodium Chloride 100 ML IV 0201 Aspirin Buffered 81 MG DAILY 12/09 1000 AC 12/10 PO 1013 Atorvastatin Calcium 40 MG DAILY@1700 12/07 1735 AC 12/10 PO 1723 Dextrose/Sodium 1,000 ML Q13H 12/11 0930 AC Chloride IV Heparin Sodium 5,000 UNIT Q8 12/07 0030 AC 12/11 (Porcine) SC 0528 Oxycodone/ 1 TAB Q6P PRN 12/07 0215 AC 12/09 Acetaminophen PO 0858 Potassium Chloride 10 MEQ Q1H 12/11 0930 AC IV 12/11 1031 Potassium Chloride 40 MEQ ONCE ONE 12/11 0830 CAN PO 12/11 0831 Silver Sulfadiazine 1 MIGNON BID 12/07 1415 AC 12/10 TOP 2144 Tramadol HCl 50 MG Q6 PRN 12/07 0215 AC 12/11 PO 0724 Last 24 Hrs of Lab/Edilberto Results Last 24 Hrs of Labs/Mics: Laboratory Tests 12/11/16 0701: Anion Gap 11, Estimated GFR > 60, BUN/Creatinine Ratio 25.0, CBC w Diff NO MAN DIFF REQ, RBC 3.60 L, MCV 86.6, MCH 28.8, RDW 14.4, MPV 7.0 L, Gran % 84.6 H, Lymphocytes % 7.7 L, Monocytes % 7.1, Eosinophils % 0.4, Basophils % 0.2, Absolute Granulocytes 8.7 H, Absolute Lymphocytes 0.8 L, Absolute Monocytes 0.7 H, Absolute Eosinophils 0, Absolute Basophils 0, PUBS MCHC 33.3 Assessment/Plan Assessment: 81-year-old gentleman with past history significant for hypertension and hyperlipidemia, current admission for worsening low back pain and left knee pain affecting ambulation. Was found to be febrile with elevated white count, elevated proBNP. Lower extremity Dopplers ruled out DVT showed left popliteal Malcolm's cyst CT abdomen pelvis were negative, left knee x-ray shows small to moderate left knee joint effusion status post tap. Blood cultures show alpha strep. Plan Left knee effusion Afebrile overnight Body fluid shows WBC of 28,500 (gout vs pseudogout). septic joint ruled out body fluid culture prelim shows no growth. No increase in uric acid Ortho on board, appreciate recs Follow-up with Dr Alford as outpatient 1 week after discharge Bacteremia Afebrile, white count trended down to normal Dec 08 blood cultures 1/2 growing GPC, Dec 06 blood cultures 2/2 grew Alpha Strep On IV ampicillin day 3 ID board appreciate recommendations, No Vegetations reported on echo currently NPO for possible NOVA today B/l Lateral lower extremity swelling Echo shows there is stage I diastolic dysfunction, normal EF at 60% trop neg x2, no new EKG changes Acute renal failure Resolved Continue to hold NSAIDs and other nephrotoxics Continue to hold Hydrochlorothiazide and moexipril Hypertension/hyperlipidemia Continue Lipitor Burn Continue Silvadene cream dvt ppx hep sc DNR/DNI Problem List: 1. HTN (hypertension) 2. HLD (hyperlipidemia) 3. Acute renal failure Pain Ratin Pain Location: na Pain Goal: Pain 4 or less Pain Plan: current regimen Tomorrow's Labs & Rationales: hypok bep GIANNI ERICKSON,JONO 12/11/16 1550: Attending MD Review Statement Attending Statement Attending MD Statement: examined this patient, discuss w/resident/PA/YARD SWITCHER, agreed w/resident/PA/YARD SWITCHER, reviewed EMR data (avail) Attending Assessment/Plan: 81M PMH HTN admitted initially for abnormal labs showing EVELIN with creatinine 2.9. Patient had been feeling right lower back pain for a week prior that has persisted but improved. He had mild bilataral lower extremity edema initially which has resolved. He currently feels well. Had a left knee effusion and underwent arthrocentesis on 12/07 which showed 28,000 WBC, cultures negative thus far. Blood cultures from 12/06 have grown alpha strep with no clear source. Had been started on Vancomycin empirically then switched to Ampicillin. Patient feels well today with mild back pain, creatinine normal, WBC improving. 1. Streptococcal bacteremia 2. EVELIN 3. Left knee effusion s/p arthrocentesis Plan - Echocardiogram normal. Scheduled for NOVA today. If NOVA normal will obtain back MRI - Continue Ampicillin - Continue to follow blood cultures. Re-culture if fever. - Follow ID recommendations - Follow orthopedic recommendations - Continue home medications - DVT PPx
[2016-12-11 08:04] LABS: ABSOLUTE BASOPHIL COUNT 0 /CUMM (0.0-0.2); ABSOLUTE EOSINOPHIL COUNT 0 /CUMM (0.0-0.7); ABSOLUTE GRANULOCYTE CT 8.7 /CUMM (1.4-6.5); ABSOLUTE LYMPH COUNT 0.8 /CUMM (1.2-3.4); ABSOLUTE MONOCYTE COUNT 0.7 /CUMM (0.10-0.60); BASOPHIL % 0.2 % (0.0-2.0); EOSINOPHIL % 0.4 % (0-5); HEMATOCRIT 31.1 % (42-52); MEAN CORPUSCULAR HGB 28.8 PG (27.0-31.0); MEAN CORPUSCULAR HGB CONC 33.3 G/DL (33.0-37.0); MEAN CORPUSCULAR VOLUME 86.6 FL (80.0-94.0); RBC DISTRIBUTION WIDTH 14.4 % (11.5-14.5); WHITE BLOOD CELL COUNT 10.3 /CUMM (4.8-10.8)
[2016-12-11 08:05] VITALS: BP 142/74
[2016-12-11 08:55] LABS: GRANULOCYTE % 84.6 % (42.2-75.2); PLATELET COUNT 186 /CUMM (130-400)
--- NOTE | 2016-12-11 09:26 | Discharge Summary ---
See Addendum Visit Information Visit Dates Admission Date: 12/06/16 Discharge Date: 12/13/16 Hospital Course Course Attending Physician: JONO ARCHER MD Primary Care Physician: CARMINE BURTON MD Consulting Request: Consulting Specialty: Infectious Disease Hospital Course: Patient is a 81 y/o M with PMHx of HTN and HLD who is sent by his PCP Dr. Burton for evaluation of EVELIN (creatinine of 2.9) and bilateral lower extremity swelling. Was also prescribed tramadol by his primary care physician 2 days ago for back pain. He also had an x-ray done at that time which showed degenerative changes. Vital signs temperature of 102, pulse rate 98 respiratory rate 20 blood pressure 114/59 saturation 94% in room air. EKG normal sinus, no axis deviation rate and rhythm nonspecific T-wave change in lateral leads UA showed: Trace urine protein, urine RBC 1-2, urine WBC 3-5, nitrates negative Sodium 140, potassium 3.9, chloride 96, BUN 82 creatinine 2.1 BUN/creatinine ratio 39 Pro-BMP 1530 CT scan of the abdomen without contrast was unremarkable Bilateral lower extremity Doppler did not show blood clots but revealed a Malcolm' s cyst Problem List 1. Leukocytosis with fever due to osteomyelitis/discitis :Patient was admitted to general medical floor. Blood and urine Cultures were drawn in the ED. He was followed of of antibiotics. Both sets of blood cultures came back positive for alpha strep and was started on ampicillin after consultation with infectious disease. Echocardiogram was done which did not show any evidence of endocarditis. Repeat blood cultures were drawn with one set of blood cultures positive for alpha strep. NOVA was done on 12/09/2016 which did not show evidence of vegetations. Source was un identifiable. Patient has c/o back pain hence MRI of the lumbar spine was done on 12/12/2016 which came back positive for osteomyelitis discitis at L3-L4. PICC line placement on 12/30/2016 for prolonged course of antibiotic. Antibiotics adjusted based on sensitivity. MRI of the spine also showed a small peripherally enhancing abscess measuring 1.8 cm in the anterior aspect of the left psoas muscle. No further intervention at this time as per neurosurgery. Recommended for a back brace to alleviate pain and increased mobility. If any evidence of neurological deficit he will need an urgent reevaluation/MRI spine and look for progression of abscess with signs of nerve root compression. Plan is to continue Ampicillin 2 g q 4 hours to complete a six-week course of antibiotics (until January 18). Check ESR weekly while he is on abx. 2. Acute renal failure in the setting of NSAID use superimposed on diuretics/Julien inhibitors with his medications were held and he was started on IV fluids. Creatinine trended down from 2.9 --> 2.1 --> 1.8 she in the day of admission and returned to baseline after IV hydration. 3. Bilateral lower extremity edema: Etiology unclear. She did not show evidence of pulmonary vascular congestion. Cardiology consult was obtained. Echocardiogram done during this admission were normal systolic function with stage I diastolic dysfunction and increased pulmonary vascular systolic pressure to 40 4. Hyperlipidemia: He was continued on atorvastatin 5. Back pain due to osteomyelitis: He was continued on Percocet and tramadol. 6. Burn in the back due to heating pads: was treated with silvadane cream which he should continue till wound is healed. Caution should be maintined in putting on the heating pads. DVT prophylaxis subcutaneous heparin DNR/DNI He will need a back brace for back pain which soluld be customaized to his size. This can be done in [facility]. Allergies: Coded Allergies: No Known Allergies (12/06/16) Significant Procedures: LEFT KNEE EFFUSION ASPIRATED. Pertinent Lab Results: Laboratory Tests 12/13 12/12 12/12 0710 1843 1542 Chemistry Sodium (137 - 145 mmol/L) 141 138 Potassium (3.5 - 5.1 mmol/L) 3.9 4.5 Chloride (98 - 107 mmol/L) 97 L 98 Carbon Dioxide (22 - 30 mmol/L) 34 H 30 Anion Gap (5 - 16) 10 10 BUN (9 - 20 mg/dL) 14 17 Creatinine (0.7 - 1.2 mg/dL) 0.7 0.6 L Estimated GFR (>60 ml/min) > 60 > 60 BUN/Creatinine Ratio (7 - 25 %) 20.0 28.3 H Coagulation PT (9.4 - 12.5 SEC) 14.4 H INR (0.90 - 1.17) 1.38 H 12/11 0701 Chemistry Sodium (137 - 145 mmol/L) 144 Potassium (3.5 - 5.1 mmol/L) 3.4 L Chloride (98 - 107 mmol/L) 98 Carbon Dioxide (22 - 30 mmol/L) 34 H Anion Gap (5 - 16) 11 BUN (9 - 20 mg/dL) 20 Creatinine (0.7 - 1.2 mg/dL) 0.8 Estimated GFR (>60 ml/min) > 60 BUN/Creatinine Ratio (7 - 25 %) 25.0 Hematology CBC w Diff NO MAN DIFF REQ WBC (4.8 - 10.8 /CUMM) 10.3 RBC (4.70 - 6.10 /CUMM) 3.60 L Hgb (14.0 - 18.0 G/DL) 10.4 L Hct (42 - 52 %) 31.1 L MCV (80.0 - 94.0 FL) 86.6 MCH (27.0 - 31.0 PG) 28.8 RDW (11.5 - 14.5 %) 14.4 Plt Count (130 - 400 /CUMM) 186 MPV (7.4 - 10.4 FL) 7.0 L Gran % (42.2 - 75.2 %) 84.6 H Lymphocytes % (20.5 - 51.1 %) 7.7 L Monocytes % (1.7 - 9.3 %) 7.1 Eosinophils % (0 - 5 %) 0.4 Basophils % (0.0 - 2.0 %) 0.2 Absolute Granulocytes (1.4 - 6.5 /CUMM) 8.7 H Absolute Lymphocytes (1.2 - 3.4 /CUMM) 0.8 L Absolute Monocytes (0.10 - 0.60 /CUMM) 0.7 H Absolute Eosinophils (0.0 - 0.7 /CUMM) 0 Absolute Basophils (0.0 - 0.2 /CUMM) 0 PUBS MCHC (33.0 - 37.0 G/DL) 33.3 Disposition Summary Disposition Principal Diagnosis: 1. Osteomyelitis/discitis 2. Congestive heart failure with preserved ejection fraction 3. Back pain 4. EVELIN Additional Diagnosis: 1. Hyperlipidemia Discharge Disposition: SNF Discharge Instructions General Discharge Information Code Status: Do Not Resucitate/Intubat Patient's Diet: Heart healthy diet Patient's Activity: As tolerated with PT Follow-Up Instructions/Appts: 1. Follow-up with primary care physician in a week upon discharge 2. Weekly monitoring of ESR till completion of course of antibiotic. 3. Follow-up with cardiology as per his regular appointment Medications at Discharge Discharge Medications: Continue taking these medications: Verapamil HCl (Verapamil ER Pm) (Unknown Strength) CAP24H.PCT Unknown Dose ORAL DAILY Qty = 30 Comments: NOT GIVEN IN HOSPITAL Hydrochlorothiazide (Hydrochlorothiazide) 12.5 MG TABLET 1 Tablet ORAL DAILY Qty = 34 Comments: NOT GIVEN IN HOSPITAL Atorvastatin Calcium (Atorvastatin Calcium) 40 MG TABLET 1 Tablet ORAL DAILY Qty = 30 Comments: Last Taken: 12/12/16 Time: 1600 Moexipril HCl (Moexipril HCl) 15 MG TABLET 1 Tablet ORAL DAILY Qty = 30 Comments: NOT GIVEN IN HOSPITAL Tramadol HCl (Tramadol HCl) 50 MG TABLET 1 Tablet ORAL EVERY SIX HOURS NEEDED as needed for PAIN Qty = 28 Comments: PER PT Aspirin (Ecotrin*) 81 MG TABLET.DR 1 Tablet ORAL DAILY Comments: Last Taken: 12/13/16 Time: 10AM Start taking the following new medications: Silver Sulfadiazine (Silvadene) 1 % CREAM..G. 1 Application On the skin TWICE DAILY Days = 30 No Refills Furosemide (Lasix) 20 MG TABLET 1 Tablet ORAL DAILY Days = 30 No Refills Ampicillin Sodium (Ampicillin Sodium) 2 GRAM VIAL 2 G INTRAVEN EVERY SIX HOURS Days = 37 No Refills Instructions: until jan 18 Copies To: MICHEAL ERICKSON,CARMINE Nunez
--- NOTE | 2016-12-11 12:18 | PN- Infect Dx ---
Subjective Subjective: Afebrile. He continues to complain of right lower back pain with movement. He also continues to note left knee discomfort. Objective Last 24 Hrs of Vital Signs/I&O Vital Signs Date Time Temp Pulse Resp B/P Pulse O2 O2 Flow FiO2 Ox Delivery Rate 12/11 0805 98.3 90 40 142/74 93 Nasal 2.0L Cannula 12/11 0000 Nasal 2.0L Cannula 12/10 2358 98.3 102 36 146/76 92 Nasal 2.0L Cannula 12/10 2200 98.8 78 40 130/80 94 Nasal 2.0L Cannula 12/10 1626 97.8 97 17 148/70 93 Room Air 12/10 1600 92 Nasal 1.0L Cannula Intake & Output 12/11 1600 12/11 0800 12/11 0000 Intake Total 260 700 Output Total 300 Balance -40 700 Intake, IV 140 100 Intake, Oral 120 600 Output, Urine 300 Patient 197 lb 195 lb Weight Physical Exam Other Physical Findings: He appears comfortable in no acute distress Lungs bibasilar crackles Heart regular rhythm with a 1/6 systolic ejection murmur Extremities left knee mild swelling and warmth, with minimal tenderness and with good range of motion; 2+ edema both lower extremities Results Last 24 Hours of Lab Results: Laboratory Tests 12/11 700 Chemistry Sodium (137 - 145 mmol/L) 144 Potassium (3.5 - 5.1 mmol/L) 3.4 L Chloride (98 - 107 mmol/L) 98 Carbon Dioxide (22 - 30 mmol/L) 34 H Anion Gap (5 - 16) 11 BUN (9 - 20 mg/dL) 20 Creatinine (0.7 - 1.2 mg/dL) 0.8 Estimated GFR (>60 ml/min) > 60 BUN/Creatinine Ratio (7 - 25 %) 25.0 Hematology CBC w Diff NO MAN DIFF REQ WBC (4.8 - 10.8 /CUMM) 10.3 RBC (4.70 - 6.10 /CUMM) 3.60 L Hgb (14.0 - 18.0 G/DL) 10.4 L Hct (42 - 52 %) 31.1 L MCV (80.0 - 94.0 FL) 86.6 MCH (27.0 - 31.0 PG) 28.8 RDW (11.5 - 14.5 %) 14.4 Plt Count (130 - 400 /CUMM) 186 MPV (7.4 - 10.4 FL) 7.0 L Gran % (42.2 - 75.2 %) 84.6 H Lymphocytes % (20.5 - 51.1 %) 7.7 L Monocytes % (1.7 - 9.3 %) 7.1 Eosinophils % (0 - 5 %) 0.4 Basophils % (0.0 - 2.0 %) 0.2 Absolute Granulocytes (1.4 - 6.5 /CUMM) 8.7 H Absolute Lymphocytes (1.2 - 3.4 /CUMM) 0.8 L Absolute Monocytes (0.10 - 0.60 /CUMM) 0.7 H Absolute Eosinophils (0.0 - 0.7 /CUMM) 0 Absolute Basophils (0.0 - 0.2 /CUMM) 0 PUBS MCHC (33.0 - 37.0 G/DL) 33.3 Last 24 Hours of Edilberto Results: Blood cultures December 08 bottle positive for alpha strep Assessment/Plan Impression: Alpha strep bacteremia with no obvious source in a patient presenting with a one -week history of right lower back pain, which persists, left knee swelling, with no evidence of a septic joint, and with acute renal failure, likely secondary to Advil, which has resolved. I am concerned about the possibility of endocarditis given the isolation of this organism, and he is scheduled for a NOVA later today. His right lower back pain is of unclear etiology, with the CT scan negative for any paraspinal process, but, with marked multilevel degenerative disease of the spine, osteomyelitis must also be considered and, if the NOVA is negative, would rule this out. His lower extremity edema suggests an element of CHF, with echocardiogram revealing stage I diastolic dysfunction but with a preserved ejection fraction. Suggestion: 1. Repeat blood cultures 2 2. Await NOVA 3. Further evaluation/management of diastolic CHF per Cardiology 4. Consider MRI of the lumbosacral spine if NOVA negative 5. Continue Ampicillin
--- NOTE | 2016-12-11 14:31 | NUR ---
PHYSICAL THERAPY- ATTEMPTED TO SEE PT THIS AM; PT W/ NOVA ORDERED TO R/O INFECTIVE ENDOCARDITIS. WILL DEFER P.T. THIS DAY AND FOLLOW APPROPRIATE WHEN RESULTS OBTAINED.
[2016-12-11 16:42] VITALS: BP 126/78
--- NOTE | 2016-12-11 16:47 | NUR ---
PT ARRIVED TO FLOOR AT THIS TIME FROM IR, A/O X 3, 86% ON RA, PLACED ON 2L AT THIS TIME 94%, DENIES SOB, DENIES COUGH. FAMILY AT BEDSIDE ASKING POC, CALL PLACED TO LAPPING MACHINE SET UP OPERATOR TO COME TALK TO PT AND FAMILY. PT DENIES PAIN OR DISCOMFORT. IVF INFUSING, ABX INFUSING. WILL INFUSE K BOLUS WHEN ABX FINISH. BED ALARM PLACED WILL MONITOR
--- NOTE | 2016-12-11 16:56 | NUR ---
CALL PLACED TO EXPLOSIVE OPERATOR SUPERVISOR PAGER [phone] AT THIS TIME PT'S FAMILY ASKING NEXT STEPS AND POC FOR PT, EXPLOSIVE OPERATOR SUPERVISOR AT BEDSIDE TO SPEAK TO FAMILY AND PT AT THIS TIME
--- NOTE | 2016-12-11 17:16 | NUR ---
PULVERIZING AND SIFTING OPERATOR SPOKE TO PT AND FAMILY AT THIS TIME, PULVERIZING AND SIFTING OPERATOR TOOK PT OFF O2, 90% ON RA AT THIS TIME, LUNGS DIMINISHED BUT CLEAR, ENCOURAGED TO USE IST/TAKE DEEP BREATHS. BLOOD CULTURES TO BE DRAWN AT THIS TIME
[2016-12-12 00:19] VITALS: BP 144/68
[2016-12-12 08:34] VITALS: BP 140/60
--- NOTE | 2016-12-12 09:29 | PN- Housestaff ---
FRED DAWKINS 12/12/16 0929: Subjective Follow-up For: acute renal failure Bilateral LE edema left knee effusion Bilateral LE edema Subjective: Seen and examine patient, is to complain of back pain. Denies bowel and bladder incontinence, fever, chills, shortness of breath. Review of Systems Constitutional: Denies: chills, diaphoresis, fever, malaise, weakness, unexplained weight loss. Cardiovascular: Denies: chest pain, edema, orthopena, palpitations, peripheral edema, syncope. Respiratory: Denies: cough, hemoptysis, orthopnea, short of breath, sputum production, stridor, wheezing. Musculoskeletal: Reports: back pain. Objective Last 24 Hrs of Vital Signs/I&O Vital Signs Date Time Temp Pulse Resp B/P Pulse O2 O2 Flow FiO2 Ox Delivery Rate 12/12 0834 98.0 85 24 140/60 94 Room Air 12/12 0019 98.6 82 24 144/68 91 Nasal 2.0L Cannula 12/12 0000 Nasal 2.0L Cannula 12/11 1642 97.5 78 24 126/78 95 Nasal 2.0L Cannula 12/11 1600 90 Room Air Intake & Output 12/12 1600 12/12 0800 12/12 0000 Intake Total 510 1200 Output Total 125 550 Balance 385 650 Intake, IV 150 600 Intake, Oral 360 600 Number 1 Bowel Movements Output, Urine 125 550 Patient 198 lb Weight Physical Exam General Appearance: Alert, Oriented X3, No Acute Distress Cardiovascular: Regular Rate, Normal S1, Normal S2 Lungs: bilateral dry crackles Abdomen: Normal Bowel Sounds, Soft, No Tenderness Neurological: Normal Speech, Sensation Intact, Cranial Nerves 3-12 NL Extremities: No Edema Current Medications: Current Medications Sig/Lacey Start time Last Medication Dose Route Stop Time Status Admin Alprazolam 0.25 MG ONCE ONE 12/12 1015 DC 12/12 PO 12/12 1016 1024 Ampicillin 2,000 MG Q6H 12/08 1400 AC 12/12 Sodium Chloride 100 ML IV 0933 Aspirin Buffered 81 MG DAILY 12/09 1000 AC 12/12 PO 0933 Atorvastatin Calcium 40 MG DAILY@1700 12/07 1735 AC 12/11 PO 1636 Dextrose/Sodium 1,000 ML Q13H 12/11 0930 DC 12/11 Chloride IV 1052 Heparin Sodium 5,000 UNIT Q8 12/07 0030 AC 12/12 (Porcine) SC 0447 Morphine Sulfate 1 MG ONCE ONE 12/12 1030 DC 12/12 IV 12/12 1031 1024 Oxycodone/ 1 TAB Q6P PRN 12/07 0215 AC 12/11 Acetaminophen PO 1158 Silver Sulfadiazine 1 MIGNON BID 12/07 1415 AC 12/11 TOP 2129 Tramadol HCl 50 MG Q6 PRN 12/07 0215 AC 12/12 PO 1330 Last 24 Hrs of Lab/Edilberto Results Last 24 Hrs of Labs/Mics: Microbiology 12/11 1758 BLOOD: Blood Culture - RES 12/11 1745 BLOOD: Blood Culture - RES Assessment/Plan Assessment: 81-year-old gentleman with past history significant for hypertension and hyperlipidemia, current admission for worsening low back pain and left knee pain affecting ambulation. Was found to be febrile with elevated white count, elevated proBNP. Lower extremity Dopplers ruled out DVT showed left popliteal Malcolm's cyst CT abdomen pelvis were negative, left knee x-ray shows Blood cultures show alpha strep. MRI of lumbar and sacral spine with nallely to be done today Plan Bacteremia Afebrile, white count trended down to normal Dec 06 blood cultures 2/2 grew Alpha Strep , Dec 08 blood cultures 1/2 growing GPC, December 11 blood cultures prelim show no growth On IV ampicillin day 4 ID board appreciate recommendations, No Vegetations reported on echo or NOVA Lumbar spine MRI shows early osteomyelitis discitis at L3-L4, significant myositis and a very small peripherally enhancing abscess measuring 0.8 cm within the adjacent psoas muscles. Moderate central canal stenosis. Ventral epidural enhancement at the L3-L4 greater than L2-L3 levels suggests small volume epidural phlegmon and/or venous engorgement without a discrete epidural abscess. Discussed with neurosurgery, conservative management at this time, will try back brace for pain control. Left knee effusion Afebrile overnight Body fluid shows WBC of 28,500 (gout vs pseudogout). septic joint ruled out No increase in uric acid Ortho on board, appreciate recs Follow-up with Dr Alford as outpatient 1 week after discharge B/l Lateral lower extremity swelling Echo shows there is stage I diastolic dysfunction, normal EF at 60% trop neg x2, no new EKG changes Acute renal failure Resolved Continue to hold NSAIDs and other nephrotoxics Continue to hold Hydrochlorothiazide and moexipril Hypertension/hyperlipidemia Continue Lipitor Burn Continue Silvadene cream dvt ppx hep sc DNR/DNI Problem List: 1. HTN (hypertension) 2. HLD (hyperlipidemia) 3. Effusion of left knee joint 4. Osteomyelitis Pain Ratin Pain Location: back Pain Goal: Pain 4 or less Pain Plan: ultram Tomorrow's Labs & Rationales: romeliap GIANNI ERICKSON,JONO 12/12/16 1440: Attending MD Review Statement Attending Statement Attending MD Statement: examined this patient, discuss w/resident/PA/MAP PLOTTER, agreed w/resident/PA/MAP PLOTTER, reviewed EMR data (avail) Attending Assessment/Plan: 81M PMH HTN admitted initially for abnormal labs showing EVELIN with creatinine 2.9. Patient had been feeling right lower back pain for a week prior that has persisted but improved. He had mild bilataral lower extremity edema initially which has resolved. He currently feels well. Had a left knee effusion and underwent arthrocentesis on 12/07 which showed 28,000 WBC, cultures negative thus far. Blood cultures from 12/06 have grown alpha strep with no clear source. Had been started on Vancomycin empirically then switched to Ampicillin. Patient feels well today with mild back pain, creatinine normal, WBC improving. NOVA normal. MRI today shows osteomyelitis, diskitis, and abscess of the lumbar spine. 1. Streptococcal bacteremia 2. EVELIN 3. Left knee effusion s/p arthrocentesis 4. Lumbar spinal acute osteomyelitis 5. Lumbar spine diskitis Plan - Neurosurgery consult - Continue Ampicillin - Continue to follow blood cultures. Re-culture if fever. - Follow ID recommendations - Follow orthopedic recommendations - Continue home medications - DVT PPx
--- NOTE | 2016-12-12 12:20 | MRI REPORT ---
EXAMINATION: MR LUMBAR SPINE WITHOUT AND WITH CONTRAST CLINICAL INFORMATION: Bacteremia. COMPARISON: None available TECHNIQUE: MRI of the lumbar spine was obtained before and after intravenous administration of 19 mL OptiMARK. FINDINGS: Imaging findings are most concerning for early osteomyelitis discitis at L3-L4 and possibly L2-L3 with opposing endplate and intradiscal marrow edema and enhancement at the L3-L4 greater than L2-L3 levels associated with significant soft tissue edema and enhancement within the adjacent psoas muscles in keeping with adjacent myositis. There is a very small peripherally enhancing abscess measuring 0.8 cm within the anterior aspect of the left psoas muscle at the L4-L5 level on image 21 of series 5 and 24 of series 10. No additional discrete soft tissue abscesses are identified. There is significant presacral edema and enhancement without adjacent sacral bony marrow edema. No pathologic enhancement within the sacroiliac joints. There is partially imaged nonspecific free fluid within the pelvis. Vertebral body heights are maintained. Severe disc volume loss at all lumbar levels. Disc desiccation at all lumbar levels. Chronic endplate Schmorl's nodes at the T12, L1, and L2 levels with mild chronic vertebral body height loss at these levels. Ventral epidural enhancement at the L3-L4 greater than L2-L3 levels suggests small volume epidural phlegmon and/or venous engorgement without a discrete epidural abscess. The conus terminates at the L1 level. L1-L2: Diffuse annular disc bulge and mild bilateral facet arthropathy. No central canal stenosis. Mild to moderate foraminal stenosis bilaterally. L2-L3: There is a diffuse annular disc bulge eccentric to the right that is in part a disc osteophyte complex and there is mild to moderate bilateral hypertrophic facet arthropathy and ligamentum flavum thickening. Findings in concert result in moderate central canal stenosis, right subarticular zone stenosis with probable mild mass effect on the traversing right L3 nerve root, and moderate foraminal stenosis bilaterally with probable mass effect on the extraforaminal right L2 nerve root. Ventral epidural venous engorgement and/or phlegmon L3-L4: There is a large diffuse annular disc bulge and there is moderate bilateral hypertrophic facet arthropathy and ligamentum flavum thickening. As described above there is ventral epidural venous engorgement and/or phlegmon. All of these findings in concert result in severe central canal stenosis, severe right subarticular zone stenosis with compression of the traversing right L4 nerve root, and moderate to severe bilateral foraminal stenosis with mass effect on the exiting L3 nerve roots bilaterally. L4-L5: There is a diffuse annular disc bulge that is in part a disc osteophyte complex and there is severe bilateral hypertrophic facet arthropathy and ligamentum flavum thickening. These findings in concert result in severe central canal stenosis, severe bilateral subarticular zone stenosis with mass effect on the traversing nerve roots bilaterally, and moderate bilateral foraminal stenosis. L5-S1: There is a diffuse annular disc bulge with a superimposed left lateral disc osteophyte protrusion. Moderate bilateral hypertrophic facet arthropathy and ligamentum flavum thickening. There is a 6 m synovial 6 projecting anteriorly from the right facet joint that results in mass effect on the traversing right S1 nerve root within the right subarticular zone. Hypertrophic facet arthropathy and disc osteophyte also result in severe left subarticular zone stenosis with mass effect on the traversing left S1 nerve root. Moderate central canal stenosis. Severe left foraminal stenosis with compression of the exiting left L5 nerve root that is in part related to a left lateral disc osteophyte protrusion. IMPRESSION: - Imaging findings are most compatible with osteomyelitis discitis at L3-L4 and possibly to a lesser extent L2-L3 with significant myositis within the adjacent psoas muscles. There is also a very small peripherally enhancing abscess measuring 0.8 cm within the anterior aspect of the left psoas muscle at the L4-L5 level on image 21 of series 5 and 24 of series 10. - Ventral epidural enhancement at the L3-L4 greater than L2-L3 levels suggests small volume epidural phlegmon and/or venous engorgement without a discrete epidural abscess. - Nonspecific presacral soft tissue edema and partially imaged fluid within the pelvis, not seen on the prior abdominal/pelvic CT study. There is no marrow edema within the sacrum nor adjacent to the sacroiliac joints to suggest infection in these areas. 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 Of note, multifactorial degenerative changes result in severe central canal stenosis at the L3-L4 and L4-L5 levels, at L3-L4 in part contributed by a ventral epidural venous engorgement and/or phlegmon. There is also moderate right L2-L3, moderate to severe bilateral L3-L4, moderate bilateral L4-L5, and severe left L5-S1 foraminal stenosis with mass effect on multiple exiting nerve roots as discussed in detail above. At L5-S1 and there is severe bilateral subarticular zone stenosis with mass effect on the traversing S1 nerve roots bilaterally, on the right side contributed by a 6 mm synovial cyst.
--- NOTE | 2016-12-12 14:13 | RADIOLOGY REPORT ---
EXAMINATION:\H\ \N\XR CHEST CLINICAL INFORMATION: Shortness of breath. COMPARISON: Chest x-ray dated 12/06/2016. TECHNIQUE: Single AP supine view of the chest was obtained. FINDINGS: The cardiomediastinal silhouette is within normal limits in size. Ectasia of the ascending and descending aorta is seen. Low lung volumes are noted with increased reticular opacities in both lung bases, similar to prior study, consistent with crowding of bronchovascular lung markings and subsegmental atelectasis. No new superimposed focal pulmonary process is seen. No effusion or pulmonary edema is noted. Bony structures are unremarkable. IMPRESSION: Low lung volumes with crowding of bronchovascular lung markings and subsegmental atelectasis in the lung bases, similar to prior exam. No new superimposed focal pulmonary process seen.
--- NOTE | 2016-12-12 15:19 | ECHOCARDIOGRAM REPORT ---
BRENDA SAVAEG Age: 81 : Gender: M Exam Date: 12/11/2016 14:14 Exam Location: [place] Ht (in): 68 Wt (lb): 196 BSA: 2.09 BP: 157 / 73 Ordering Physician: FRED DAWKINS MD Referring Physician: Juan Miguel Bolaños MD Technologist: Iraida Calhoun [facility] Room Number: 218-01 Indications: INFECTIVE ENDOCARDITIS Rhythm: Sinus Technical Quality: Good Medications TIVA Ease of Transducer Insertion No Difficulty Complications None Technical Difficulty None FINDINGS Left Ventricle Normal global left ventricular size, wall thickness, systolic function with no obvious regional wall motion abnormalities. Right Ventricle Normal right ventricular size and function. Right Atrium Normal right atrial size. Left Atrium Mild left atrial dilatation. Normal left atrial size. LA Appendage Normal left atrial appendage. IA Septum Hypermobile septum. No evidence of shunt flow across the interatrial septum by color Doppler or agitated saline ("bubble study") intravenous injection. Mitral Valve Structurally normal mitral valve. No evidence of definite vegetation on the mitral valve. Trace mitral regurgitation. Aortic Valve Trileaflet aortic valve. Mild aortic sclerosis. No evidence of definite vegetation on the aortic valve. No evidence of aortic valve stenosis. Trace aortic regurgitation. Tricuspid Valve Structurally normal tricuspid valve. No evidence of definite tricuspid valve vegetation. Trace tricuspid regurgitation. Pulmonic Valve Pulmonic valve not well visualized, grossly normal. No evidence of definite pulmonic valve vegetation. Trace pulmonic regurgitation. Pericardium No pericardial effusion. Great Vessels Normal size aortic root. CONCLUSIONS No evidence of definite valvular vegetations to confirm infective endocarditis. Juan Miguel Bolaños M.D. (Electronically Signed) Final Date: 12 December 2016 15:19 MEASUREMENTS (Male / Female) Normal Values
--- NOTE | 2016-12-12 16:26 | PN- Infect Dx ---
Subjective Subjective: Afebrile. He continues to complain of right sided back pain. Objective Last 24 Hrs of Vital Signs/I&O Vital Signs Date Time Temp Pulse Resp B/P Pulse O2 O2 Flow FiO2 Ox Delivery Rate 12/12 0834 98.0 85 24 140/60 94 Room Air 12/12 0019 98.6 82 24 144/68 91 Nasal 2.0L Cannula 12/12 0000 Nasal 2.0L Cannula 12/11 1642 97.5 78 24 126/78 95 Nasal 2.0L Cannula Intake & Output 12/12 1600 12/12 0800 12/12 0000 Intake Total 510 1200 Output Total 100 125 550 Balance -100 385 650 Intake, IV 150 600 Intake, Oral 360 600 Number 1 Bowel Movements Output, Urine 100 125 550 Patient 198 lb Weight Physical Exam Other Physical Findings: He appears comfortable in no acute distress. Lungs are clear Heart regular rhythm with no murmur Back no tenderness on palpation Extremities left knee swelling persist, slightly warm to touch, with no tenderness on palpation and with good range of motion Results Last 24 Hours of Lab Results: Laboratory Tests 12/12 1542 Chemistry Sodium Pending Potassium Pending Chloride Pending Carbon Dioxide Pending Anion Gap Pending BUN Pending Creatinine Pending BUN/Creatinine Ratio Pending Last 24 Hours of Edilberto Results: Blood cultures 2 December 11 negative so far Recent Imaging Studies: MRI of the lumbar spine reveals findings compatible with osteomyelitis/discitis at L3-L4 and possibly to a lesser extent L2-L3 with significant myositis within the adjacent psoas muscles and with a very small peripherally enhancing abscess measuring 0.8 cm within the anterior aspect of the left psoas muscle at the L4- L5 level; ventral epidural enhancement at the L3-L4 greater than L2-L3 level suggesting a small volume epidural phlegmon; advanced multilevel degenerative disc disease and facet arthropathy throughout the lumbar spine NOVA December 11 negative for any vegetations Assessment/Plan Impression: Osteomyelitis at the L3-L4 and possibly the L2-L3 level seen on the recent MRI with evidence of myositis, but with no drainable collection, and with a 0.8 cm abscess in the left psoas and a possible epidural phlegmon, neither of which is felt to be drainable. This is the likely explanation for his back pain and alpha strep bacteremia. His left knee inflammation persists, to a mild degree, but it is not clear how this relates to his bacteremia or osteomyelitis. His NOVA is negative making endocarditis unlikely. He does remain afebrile and white blood cell count has normalized on Ampicillin. Suggestion: 1. Further evaluation/management of diastolic CHF per Cardiology 2. Orthopedic follow-up regarding his left knee inflammation 3. Would pursue placement of a PICC 4. Continue Ampicillin
[2016-12-12 16:33] VITALS: BP 128/58
--- NOTE | 2016-12-12 17:09 | PN- Cardiology ---
Subjective Subjective: Mr. Merritt continues to complain of right sided back pain. Objective Vital Signs and I&Os Vital Signs Date Time Temp Pulse Resp B/P Pulse O2 O2 Flow FiO2 Ox Delivery Rate 12/12 1633 97.9 86 20 128/58 95 Nasal 2.0L Cannula 12/12 0834 98.0 85 24 140/60 94 Room Air 12/12 0019 98.6 82 24 144/68 91 Nasal 2.0L Cannula 12/12 0000 Nasal 2.0L Cannula Intake & Output 12/12 1600 12/12 0800 12/12 0000 12/11 1600 12/11 0800 12/11 0000 Intake Total 612 776 4610 300 260 700 Output Total 450 125 550 200 300 Balance 370 385 650 100 -40 700 Intake, IV 100 150 600 300 140 100 Intake, Oral 720 360 600 0 120 600 Number 1 Bowel Movements Output, Urine 450 125 550 200 300 Patient 198 lb 197 lb 195 lb Weight Physical Exam: Well-developed, well-nourished elderly male in no acute distress. Vital signs: See above. HEENT: Normocephalic, atraumatic, EOMI, slightly dry mucous membranes. Neck: No JVD, no bruits. Heart: S1, S2 with a soft (grade 1/6) systolic murmur. No gallop or rub appreciated. PMI fifth ICS at MCL. Abdomen: Soft, nontender, positive bowel sounds. Extremities: No edema. Current Medications: Current Medications Sig/Lacey Start time Last Medication Dose Route Stop Time Status Admin Alprazolam 0.25 MG ONCE ONE 12/12 1015 DC 12/12 PO 12/12 1016 1024 Ampicillin 2,000 MG Q6H 12/08 1400 AC 12/12 Sodium Chloride 100 ML IV 1554 Aspirin Buffered 81 MG DAILY 12/09 1000 AC 12/12 PO 0933 Atorvastatin Calcium 40 MG DAILY@1700 12/07 1735 AC 12/12 PO 1555 Heparin Sodium 5,000 UNIT Q8 12/07 0030 AC 12/12 (Porcine) SC 1555 Morphine Sulfate 1 MG ONCE ONE 12/12 1030 DC 12/12 IV 12/12 1031 1024 Oxycodone/ 1 TAB Q6P PRN 12/07 0215 AC 12/11 Acetaminophen PO 1158 Silver Sulfadiazine 1 MIGNON BID 12/07 1415 AC 12/12 TOP 1000 Tramadol HCl 50 MG Q6 PRN 12/07 0215 AC 12/12 PO 1330 Results Last 48 Hrs of Labs/Mics: Laboratory Tests 12/12/16 1542: Anion Gap 10, Estimated GFR > 60, BUN/Creatinine Ratio 28.3 H 12/11/16 0701: Anion Gap 11, Estimated GFR > 60, BUN/Creatinine Ratio 25.0, CBC w Diff NO MAN DIFF REQ, RBC 3.60 L, MCV 86.6, MCH 28.8, RDW 14.4, MPV 7.0 L, Gran % 84.6 H, Lymphocytes % 7.7 L, Monocytes % 7.1, Eosinophils % 0.4, Basophils % 0.2, Absolute Granulocytes 8.7 H, Absolute Lymphocytes 0.8 L, Absolute Monocytes 0.7 H, Absolute Eosinophils 0, Absolute Basophils 0, PUBS MCHC 33.3 Recent Imaging Studies: Transesophageal echocardiogram (12/11/2016) No evidence of definite valvular vegetations to confirm infective endocarditis. MRI lumbar spine (12/12/2016) Imaging findings are most compatible with osteomyelitis discitis at L3-L4 and possibly to a lesser extent L2-L3 with significant myositis within the adjacent psoas muscles. There is also a very small peripherally enhancing abscess measuring 0.8 cm within the anterior aspect of the left psoas muscle at the L4-L5 level on image 21 of series 5 and 24 of series 10. Ventral epidural enhancement at the L3-L4 greater than L2-L3 levels suggests small volume epidural phlegmon and/or venous engorgement without a discrete epidural abscess. Nonspecific presacral soft tissue edema and partially imaged fluid within the pelvis, not seen on the prior abdominal/pelvic CT study. There is no marrow edema within the sacrum nor adjacent to the sacroiliac joints to suggest infection in these areas. 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 Of note, multifactorial degenerative changes result in severe central canal stenosis at the L3-L4 and L4-L5 levels, at L3-L4 in part contributed by a ventral epidural venous engorgement and/or phlegmon. There is also moderate right L2-L3, moderate to severe bilateral L3-L4 , moderate bilateral L4-L5, and severe left L5-S1 foraminal stenosis with mass effect on multiple exiting nerve roots as discussed in detail above. At L5-S1 and there is severe bilateral subarticular zone stenosis with mass effect on the traversing S1 nerve roots bilaterally, on the right side contributed by a 6 mm synovial cyst. Assessment/Plan Assessment/Plan Elderly male with alpha strep bacteremia without an initial obvious source who presented with a one week plus history of lower back pain following thermal trauma from a heating pad, left knee swelling without evidence of a septic joint, and EVELIN that has improved. Transesophageal echocardiography performed on 12/11/2016 did not reveal definite vegetations to confirm infective endocarditis and the MRI performed earlier today is consistent with lumbar spine osteomyelitis, myositis, small left psoas muscle abscess (not drainable), and possible epidural phlegmon (not drainable) that are now felt to be the likely source of his alpha strep bacteremia. Continue on present regimen and follow-up on ID recommendations. Continue telemetry? Not applicable
[2016-12-12 20:26] LABS: PT 14.4 SEC (9.4-12.5)
[2016-12-12 23:39] VITALS: BP 140/56
--- NOTE | 2016-12-13 07:27 | PN- Housestaff ---
FRED DAWKINS 12/13/16 0727: Subjective Follow-up For: left knee effusion LE edema Osteomyelitis discitis Subjective: Seen and examined patient, denies fever, chills, chest pain, shortness of breath , numbness, tingling urinary or bladder incontinence. No Overnight events ported. Need for PICC line discussed with patient and he verbalized understanding. Review of Systems Constitutional: Denies: chills, diaphoresis, fever, malaise, weakness, unexplained weight loss. Cardiovascular: Denies: chest pain, edema, orthopena, palpitations, peripheral edema, syncope. Respiratory: Denies: cough, hemoptysis, orthopnea, short of breath, sputum production, stridor, wheezing. Objective Last 24 Hrs of Vital Signs/I&O Vital Signs Date Time Temp Pulse Resp B/P Pulse O2 O2 Flow FiO2 Ox Delivery Rate 12/13 0941 Nasal 2.0L Cannula 12/13 0936 Nasal 2.0L Cannula 12/13 0834 97.5 90 20 132/60 92 Nasal 2.0L Cannula 12/13 0000 94 Nasal 2.0L Cannula 12/12 2339 97.7 85 20 140/56 95 12/12 1633 97.9 86 20 128/58 95 Nasal 2.0L Cannula Intake & Output 12/13 1600 12/13 0800 12/13 0000 Intake Total 120 340 Output Total 150 150 Balance -30 190 Intake, IV 100 Intake, Oral 120 240 Output, Urine 150 150 Patient 199 lb Weight Physical Exam General Appearance: Alert, Oriented X3, Cooperative, No Acute Distress Cardiovascular: Regular Rate, Normal S1, Normal S2 Lungs: Clear to Auscultation, Normal Air Movement Abdomen: Normal Bowel Sounds, Soft, No Tenderness Neurological: Strength at 5/5 X4 Ext, Normal Tone, Sensation Intact Current Medications: Current Medications Sig/Lacey Start time Last Medication Dose Route Stop Time Status Admin Alprazolam 0.25 MG ONCE ONE 12/12 1015 DC 12/12 PO 12/12 1016 1024 Ampicillin 2,000 MG Q6H 12/08 1400 AC 12/13 Sodium Chloride 100 ML IV 0730 Aspirin Buffered 81 MG DAILY 12/09 1000 AC 12/12 PO 0933 Atorvastatin Calcium 40 MG DAILY@1700 12/07 1735 AC 12/12 PO 1555 Furosemide 20 MG ONCE ONE 12/13 0830 DC IV 12/13 0831 Heparin Sodium 5,000 UNIT Q8 12/07 0030 AC 12/13 (Porcine) SC 0436 Morphine Sulfate 1 MG ONCE ONE 12/12 1030 DC 12/12 IV 12/12 1031 1024 Oxycodone/ 1 TAB Q6P PRN 12/07 0215 AC 12/11 Acetaminophen PO 1158 Silver Sulfadiazine 1 MIGNON BID 12/07 1415 AC 12/12 TOP 1954 Tramadol HCl 50 MG Q6 PRN 12/07 0215 AC 12/13 PO 0436 Last 24 Hrs of Lab/Edilberto Results Last 24 Hrs of Labs/Mics: Laboratory Tests 12/13/16 0710: Anion Gap 10, Estimated GFR > 60, BUN/Creatinine Ratio 20.0 12/12/16 1843: PT 14.4 H, INR 1.38 H 12/12/16 1542: Anion Gap 10, Estimated GFR > 60, BUN/Creatinine Ratio 28.3 H Assessment/Plan Assessment: 81-year-old gentleman with past history significant for hypertension and hyperlipidemia, current admission for worsening low back pain and left knee pain affecting ambulation. Was found to be febrile with elevated white count, elevated proBNP. Lower extremity Dopplers ruled out DVT showed left popliteal Malcolm's cyst CT abdomen pelvis were negative, left knee x-ray shows Blood cultures show alpha strep. NOVA negative for vegetations, MRI of lumbar and sacral spine showing osteomyelitis discitis. Plan Bacteremia Afebrile, white count trended down to normal Dec 06 blood cultures 2/2 grew Alpha Strep , Dec 08 blood cultures 1/2 growing GPC, December 11 blood cultures prelim show no growth On IV ampicillin day 5, will switch to Penicillin 4 million units IV every 4 hours to complete a six-week course of antibiotics (until January 18) ID board appreciate recommendations, Conservative management at this time. Possible back brace as outpatient for pain management Left knee effusion Worsening of the effusion, increased warmth or erythema noted Ortho on board, appreciate recs Follow-up with Dr Alford as outpatient 1 week after discharge B/l Lateral lower extremity swelling Echo shows there is stage I diastolic dysfunction, normal EF at 60% trop neg x2, no new EKG changes Acute renal failure Resolved Continue to hold NSAIDs and other nephrotoxics Continue to hold Hydrochlorothiazide and moexipril Hypertension/hyperlipidemia Continue Lipitor Burn Continue Silvadene cream dvt ppx hep sc DNR/DNI Problem List: 1. HTN (hypertension) 2. Superficial burn of back 3. Bilateral lower extremity edema 4. Effusion of left knee joint 5. Osteomyelitis Pain Ratin Pain Location: back pain Pain Goal: Pain 4 or less Pain Plan: current regimen Tomorrow's Labs & Rationales: none required GIANNI ERICKSONBOOCECILIA 12/13/16 1107: Attending MD Review Statement Attending Statement Attending MD Statement: examined this patient, discuss w/resident/PA/MANAGER OF BROADCAST CONTENT, agreed w/resident/PA/MANAGER OF BROADCAST CONTENT, reviewed EMR data (avail) Attending Assessment/Plan: 81M PMH HTN admitted initially for abnormal labs showing EVELIN with creatinine 2.9. Patient had been feeling right lower back pain for a week prior that has persisted but improved. He had mild bilataral lower extremity edema initially which has resolved. He currently feels well. Had a left knee effusion and underwent arthrocentesis on 12/07 which showed 28,000 WBC, cultures negative thus far. Blood cultures from 12/06 have grown alpha strep with no clear source. Had been started on Vancomycin empirically then switched to Ampicillin. Patient feels well today with mild back pain, creatinine normal, WBC improving. NOVA normal. MRI today shows osteomyelitis, diskitis, and abscess of the lumbar spine. 1. Streptococcal bacteremia 2. EVELIN 3. Left knee effusion s/p arthrocentesis 4. Lumbar spinal acute osteomyelitis 5. Lumbar spine diskitis Plan - Neurosurgery recommendations, no surgical intervention at this time - Continue Ampicillin - Follow ID recommendations - Follow orthopedic recommendations - Continue home medications - Will require PICC line. Stable for discharge to [facility] pending PICC and ID recommendations on discharge antibiotics - Will defer back brace to outpatient, as patient still has vasquez on his back from heating pad which may worsen his vasquez. His pain is controlled on current medications.
[2016-12-13 08:34] VITALS: BP 132/60
[2016-12-13] MEDS ORDERED: LASIX20 M1 PO (13:06)
[2016-12-13] MEDS ORDERED: SILVADENE20 GM TOP (13:06)
--- NOTE | 2016-12-13 13:41 | Patient Discharge Instructions ---
Discharge Instructions General Discharge Information You were seen/treated for: infection in the bone You had these procedures: Transthoracic echocardiogram Special Instructions: 1. Follow-up with primary care physician in a week upon discharge 2. Weekly monitoring of ESR till completion of course of antibiotic. 3. Follow-up with cardiology as per his regular appointment 4. You were started on a water pill called Lasix for her heart and lower extremity swelling 5. Watch for symptoms of loss of sensation in the legs, hip or loss of strength. Please come to emergency department if any symptoms seen 6. Plan is to continue Penicillin 4 million units IV every 4 hours to complete a six-week course of antibiotics (until January 18). Check ESR weekly while he is on abx. Diet Recommended Diet: Heart Healthy Activity Activity Self Limited: Yes Acute Coronary Syndrome Inclusion Criteria At DC or during hospital stay patient has or had the following: ACS DIAGNOSIS No Discharge Core Measures Meds if any: Prescribed or Continued at Discharge Meds if any: NOT Prescribed or Continued at Discharge Congestive Heart Failure Inclusion Criteria At DC or during hospital stay patient has or had the following: CHF DIAGNOSIS No Discharge Core Measures Meds if any: Prescribed or Continued at Discharge Meds if any: NOT Prescribed or Continued at Discharge Cerebrovascular accident Inclusion Criteria At DC or during hospital stay patient has or had the following: CVA/TIA Diagnosis No Discharge Core Measures Meds if any: Prescribed or Continued at Discharge Meds if any: NOT Prescribed or Continued at Discharge Venous thromboembolism Inclusion Criteria VTE Diagnosis No VTE Type NONE VTE Confirmed by (Test) NONE Discharge Core Measures - Per Current guidelines, there needs to be overlap - treatment for the first 5 days of Warfarin therapy. - If discharged on Warfarin prior to 5 days of - overlap therapy, the patient will need to be - assessed for post discharge needs including - *Post discharge parental anticoagulation - *Warfarin and/or parental anticoagulation education - *Follow up date to check INR post discharge At least 5 days overlap therapy as Inpatient No Meds if any: Prescribed or Continued at Discharge Note: Overlap Therapy is Warfarin and Anticoagulant Meds if any: NOT Prescribed or Continued at Discharge
--- NOTE | 2016-12-13 14:11 | PN- Infect Dx ---
Subjective Subjective: Afebrile. He continues to complain of right lower back pain and left knee discomfort, especially with walking. Objective Last 24 Hrs of Vital Signs/I&O Vital Signs Date Time Temp Pulse Resp B/P Pulse O2 O2 Flow FiO2 Ox Delivery Rate 12/13 0941 Nasal 2.0L Cannula 12/13 0936 Nasal 2.0L Cannula 12/13 0834 97.5 90 20 132/60 92 Nasal 2.0L Cannula 12/13 0800 Nasal 2.0L Cannula 12/13 0000 94 Nasal 2.0L Cannula 12/12 2339 97.7 85 20 140/56 95 12/12 1633 97.9 86 20 128/58 95 Nasal 2.0L Cannula Intake & Output 12/13 1600 12/13 0800 12/13 0000 Intake Total 120 340 Output Total 150 150 Balance -30 190 Intake, IV 100 Intake, Oral 120 240 Output, Urine 150 150 Patient 199 lb Weight Physical Exam Other Physical Findings: He appears comfortable in no acute distress Extremities left knee swelling, mildly warm, with no erythema or tenderness and with good range of motion; 2+ edema both lower extremities Results Last 24 Hours of Lab Results: Laboratory Tests 12/13 12/12 12/12 0710 1843 1542 Chemistry Sodium (137 - 145 mmol/L) 141 138 Potassium (3.5 - 5.1 mmol/L) 3.9 4.5 Chloride (98 - 107 mmol/L) 97 L 98 Carbon Dioxide (22 - 30 mmol/L) 34 H 30 Anion Gap (5 - 16) 10 10 BUN (9 - 20 mg/dL) 14 17 Creatinine (0.7 - 1.2 mg/dL) 0.7 0.6 L Estimated GFR (>60 ml/min) > 60 > 60 BUN/Creatinine Ratio (7 - 25 %) 20.0 28.3 H Coagulation PT (9.4 - 12.5 SEC) 14.4 H INR (0.90 - 1.17) 1.38 H Last 24 Hours of Edilberto Results: Blood cultures December 11 negative Assessment/Plan Impression: Osteomyelitis at the L3-L4 and possibly the L2-L3 level seen on the recent MRI with evidence of myositis, but with no drainable collection, and with a 0.8 cm abscess in the left psoas and a possible epidural phlegmon, neither of which is felt to be drainable. He remains afebrile with white blood cell count normal on Ampicillin now Day 6 of treatment for alpha strep bacteremia presumably secondary to the osteomyelitis, with most recent blood cultures remaining negative. His left knee inflammation persists, to a mild degree, but it is not clear how this relates to his bacteremia or osteomyelitis. He has persistent bilateral lower extremity edema, possibly related to his stage I diastolic dysfunction. Suggestion: 1. Further evaluation/management of diastolic CHF per Cardiology 2. Orthopedic follow-up regarding his left knee inflammation 3. Would check a baseline ESR and follow weekly while on antibiotics 4. Await placement of a PICC 5. Discontinue Ampicillin 6. Begin Penicillin 4 million units IV every 4 hours to complete a six-week course of antibiotics (until January 18)
--- NOTE | 2016-12-13 15:06 | RADIOLOGY REPORT ---
EXAMINATION: XR PORTABLE CHEST CLINICAL INFORMATION: PICC line placement COMPARISON: CXR from 12/12/2016 TECHNIQUE: Portable view of the chest was obtained. FINDINGS: Lungs are markedly hypoinflated resulting in crowding of bronchovascular structures within the bases. The lower lobes are suboptimally evaluated due to the hypoinflation. The right arm peripherally inserted catheter appears to terminate within the proximal right atrium. Consider withdrawing the catheter by approximately 2 cm. Stable appearance of the mildly enlarged cardiomediastinal silhouette and apparent ectasia of the thoracic aorta. No acute osseous findings. IMPRESSION: 1. The tip of the right arm peripherally inserted catheter is within the right atrium. 2. Lungs are hypoinflated resulting in crowding of bronchovascular structures within the suboptimally evaluated bases. No acute pulmonary findings compared to 12/12/2016.
[2016-12-13] MEDS ORDERED: [UNRECOGNIZED DRUG - CODE] IV (15:12)
--- NOTE | 2016-12-13 15:19 | Event Note ---
Event Note Event Note: Spoke to Dr. Bolaños. Agreed with starting him on PO lasix 20 mg daily. He will need outpatient follow up for further monitoring.
--- NOTE | 2016-12-13 16:12 | Event Note ---
Event Note Event Note: Discussed with ID due to financial reasons pt will be dc ampillicin 2g q6 hrs
--- NOTE | 2016-12-13 16:13 | RADIOLOGY REPORT ---
EXAMINATION: XR PORTABLE CHEST CLINICAL INFORMATION: PICC line placement. COMPARISON: Chest x-ray 12/13/2016, 2:39 PM TECHNIQUE: Portable view of the chest was obtained. 3:49 PM FINDINGS: Right-sided PICC line catheter tip in superior vena cava. Catheter tip is been pulled back. Catheter tip is now at caval atrial junction in good position. Lung volume is low causing crowding of the bronchovascular markings. This is unchanged since prior study. IMPRESSION: PICC line catheter tip has been pulled back and now is in good position of the caval atrial junction.
[2016-12-13] MEDS ORDERED: AMPICILLIN SODIU2 G2 IV (16:14)
[2016-12-13 16:18] VITALS: BP 118/62
--- NOTE | 2016-12-13 18:55 | NUR ---
NURSING NOTE: PATIENT A/OX3, DENIES PAIN AT THIS TIME. PICC LINE IN PLACE TO ESA. PATIENT ON 2L VIA NC. PAPERWORK GIVEN TO [facility] FOR SNF. REPORT CALLED TO SNF.
--- NOTE | 2016-12-16 15:45 | Event Note ---
Event Note Event Note: Spoke to Escobar Little RN form [facility] and clarified dose of abx Patient should be on Ampicillin 2g Q6 to complete a six-week course of antibiotics (until January 18). Check ESR weekly while he is on abx. Abx was changed form penicillin due to insurance coverage issues.
== END 2016-12-13 18:55 | DRG 871 ==
LOC: ERH 17:19 → 2NB 22:43 → ERHI 22:43 → 2NB 12-07 01:09
PROVIDERS: Emergency Medicine; Internal Medicine; Student in an Organized Health Care Education/Training Program; ADMIT Student in an Organized Health Care Education/Training Program
PROC: 0S9D3ZZ Drainage of Left Knee Joint, Percutaneous Approach (ICD-10-PCS; principal; 2016-12-07)
PROC: B246ZZ4 Ultrasonography of Right and Left Heart, Transesophageal (ICD-10-PCS; 2016-12-11)
DX: A40.8 Other streptococcal sepsis (principal); G06.2 Extradural and subdural abscess, unspecified; N17.9 Acute kidney failure, unspecified; M60.08 Infective myositis, other site; M46.26 Osteomyelitis of vertebra, lumbar region; I50.32 Chronic diastolic (congestive) heart failure; E78.5 Hyperlipidemia, unspecified; I11.0 Hypertensive heart disease with heart failure; M25.462 Effusion, left knee; M51.36 Other intervertebral disc degeneration, lumbar region; M48.06 Spinal stenosis, lumbar region; M48.07 Spinal stenosis, lumbosacral region; T21.14XA Burn of first degree of lower back, initial encounter; X19.XXXA Contact with other heat and hot substances, initial encounter; Y92.009 Unspecified place in unspecified non-institutional (private) residence as the place of occurrence of the external cause; Z87.891 Personal history of nicotine dependence
CPT/HCPCS: 2NBP; 72149; 87075; ERO; 36415; 72158; 73560-LT; 74176; 81001; 82436; 82570; 87040; 87071; 87086; 87147; 87804; 87804-59; 93005; 93010; 93306; 93325; 93970; 97001-GP; 97110-GO; 97116-GO; 97161-GP; 97530-GO; 97535-GO; A9579; C1769; J0290; J1644; J1940; J2270; J3370; J7040; J7042

== ENCOUNTER 2017-11-26 12:43 | Inpatient (IN) | payer OTHER, MEDICARE ==
[~2017-11-26] VITALS: Ht 180.3 cm; Wt 83.9 kg
[~2017-11-26 12:43] MED LIST: AMPICILLIN SODIU2 G2 IV; ASPIRIN EC81 M1 PO; ATORVASTATIN CA40 M1 PO; CEFTAZIDIME1 G2 IV; CLOPIDOGREL75 M1 PO; FERROUS SULFAT325 M3 PO; HEPARIN-NS25000 UNIT IV; HYDROCHLOROTH12.5 M2 PO; LASIX20 M1 PO; MOEXIPRIL HCL15 MG PO; SILVADENE20 GM TOP; TRAMADOL HCL50 M1 PO; VANCOMYCIN HCL1 G1 IV; VERAPAMIL ER P300 MG PO; [UNRECOGNIZED DRUG - CODE] IV
--- NOTE | 2017-11-26 12:51 | ED GENERAL ADULT ---
History of Present Illness General Chief Complaint: General Adult Stated Complaint: BIBA WEAKNESS, FATIGUE, LOW H&H NEEDS TRANSFUSION Source: patient Exam Limitations: no limitations Vital Signs & Intake/Output Vital Signs & Intake/Output Vital Signs Date Time Temp Pulse Resp B/P B/P Pulse O2 O2 Flow FiO2 Mean Ox Delivery Rate 11/26 1553 90 22 93/48 97 Nasal 2.0L Cannula 11/26 1450 97.0 73 22 101/47 97 Nasal 2.0L Cannula 11/26 1322 82 18 103/55 98 Room Air 11/26 1307 80 20 100/51 97 Nasal 2.0L Cannula 11/26 1300 99 Room Air 11/26 1244 97.0 118 20 80/38 99 Room Air Allergies Coded Allergies: No Known Allergies (12/06/16) Reconcile Medications Aspirin (Ecotrin*) 81 MG TABLET.DR 1 TAB PO DAILY HEART/BLOOD (Reported) Atorvastatin Calcium (Lipitor) 80 MG TABLET 1 TAB PO DAILY CHOLESTEROL ( Reported) Clopidogrel Bisulfate (Clopidogrel) 75 MG TABLET 1 TAB PO DAILY HEART HEALTH Ferrous Sulfate 325 MG (65 MG IRON) TABLET 1 TAB PO DAILY low iron Furosemide (Lasix) 40 MG TABLET 1 TAB PO DAILY DIURETIC (Reported) Ipratropium/Albuterol Sulfate (Iprat-Albut 0.5-3(2.5) MG/3 Ml) 0.5 MG-3 MG (2.5 MG BASE)/3 ML AMPUL.NEB 1 VIAL INH Q6H RESP. (WHILE AWAKE) (Reported) Lisinopril (Zestril) 2.5 MG TABLET 1 TAB PO QHS BP (Reported) Melatonin 3 MG TABLET 1 TAB PO QHS SUPPLEMENT (Reported) Metoprolol Succ XL (Toprol XL) 25 MG TAB 75 MG PO DAILY HEART/BP (Reported) Sennosides/Docusate Sodium (Senna S Tablet) 8.6 MG-50 MG TABLET 1 TAB PO QHS GI (Reported) Sodium Chloride (Saline Nasal [place]) 0.65 % SPRAY 1 SPRAY NASB TID PRN NASAL CONGESTION (Reported) Triage Note: BIBA FROM [facility] FOR FATIGUE, SOB WITH EXERTION AND TRANSFERRING, INCREASED LEG SWELLING AND LOW H&H (3.2/10.3) AND ARRIVES PALE, TACHYCARDIC AND HYPOTENSIVE. MENTATING APPROPRIATELY AND AAOX3, FOCAL NEUROS INTACT. ABLE TO FOLLOW COMMANDS. REPORTS DARK STOOLS BUT ATTRIBUTES THAT TO IRON PILLS. RECENTLY ADMITTED AND TRANSFERRED TO [facility] FOR STENTS S/P NSTEMI. WENT TO [facility] ON FRIDAY DUE TO LOOKING PALE AND HAD LABS DRAWN WHICH JUST RESULTED. PT DENIES ACTIVE CP AT THIS TIME BUT EASILY WINDED. DENIES PAIN Triage Nurses Notes Reviewed? yes Onset: Gradual Duration: worse persistent since (3-4 days) Timing: no prior history Injury Environment: home Severity: moderate No Modifying Factors: none HPI: Patient is a 82-year-old male with history of CHF, atrial fibrillation, recent and STEMI with stent placement presenting to the emergency department with chief complaint increasing shortness of breath with exertion, low H&H. Patient has been residing at a rehabilitation facility since being in the hospital 3 weeks ago for an STEMI and stent placement. Nursing staff noticed that he was pale so they ordered routine blood work. His H&H extremely low which was new for this patient so they decided to transfer him to the emergency department today for evaluation. Patient reports generalized malaise and weakness. Denies chest pain palpitations. Denies any urinary frequency urgency or dysuria. Patient does report that he takes iron supplements and notices still has been darker over the past several weeks. Patient also reports that he thinks aspirin and Plavix. Denies any rectal bleeding. No blood in the urine. (Gina Bauman) Past History Medical History Any Pertinent Medical History? see below for history Cardiovascular: hypertension, hyperlipidemia Renal: EVELIN Other Medical Hx: OSTEOMYELITIS SPINE History of MRSA: No History of VRE: No History of CDIFF: No Influenza Vaccine: 10/01/16 Surgical History Surgical History: N Psychosocial History What is your primary language Wol[place] Family History Family History, If Any: MOTHER FH: diabetes mellitus Relation not specified for: *No pertinent family history Hx Contributory? No (Gina Bauman) Review of Systems Review of Systems Constitutional: Reports: malaise, weakness. Comments Review of systems: See HPI, All other systems negative. Constitutional, no chills fever or weight loss HEENT: No visual changes no sore throat no congestion Cardiovascular: No chest pain ,palpitation Skin, no jaundice no rashes Respiratory: No cough sputum or hemoptysis GI: No nausea no vomiting : No dysuria No hematuria Muscle skeletal: no back pain, no neck pain, Neurologic: No numbness no confusion no headaches Psych: No stress anxiety or depression,. Heme/endocrine: No bruising no bleeding no polyuria or polydipsia, on Plavix and aspirin Immunology: No splenectomy or history of AIDS (Farhana HOLLIS,Gina) Physical Exam Physical Exam General Appearance: no apparent distress, alert, awake, comfortable, pale Comments: pale person in no acute distress HEENT: extraocular motion intact, no nystagmus. Pupils equally round and reactive to light and accommodation. Nose is atraumatic. External auditory canal and Tympanic membranes clear. Pharynx normal. No swelling or edema. pallor noted to palpable conjunctiva bilaterally. Neck: Supple, no lymphadenopathy Back: Nontender Cardiovascular: tachycardic rate and rhythms no murmurs rubs or gallops, normal JVP Respiratory: Chest nontender. No respiratory distress.breath sounds significantly diminished to auscultation bilaterally Abdomen: Soft, nontender nondistended, no appreciable organomegaly. Normal bowel sounds. No ascites, no rebound or guarding. Rectal: Nontender, dark brown stool, guaiac positive. No visible or palpable hemorrhoids. Extremity: 3+ pitting edema in the lower extremities Bilaterally, no calf tenderness to palpation, normal and equal pulses. Muscular strength is 4 out of 5 in all extremities. Neuro: Alert oriented x3, motor sensory normal, cranial nerves II through XII grossly intact. Skin:very pale. No other appreciable rash on exposed skin, skin is warm and dry. Psych: Mood and affect is normal, memory and judgment is normal. Core Measures ACS in differential dx? Yes CVA/TIA Diagnosis: No Sepsis Present: No Sepsis Focused Exam Completed? No (Farhana HOLLIS,Gina) Progress Differential Diagnoses I considered the following diagnoses in my evaluation of the patient: Acute anemia, upper GI bleed, lower GI bleed, cardiogenic shock, sepsis, pneumonia, bronchitis, AAA Plan of Care: Orders Procedure Date/time Status Nothing by Mouth 11/26 D Active CBC WITHOUT DIFFERENTIAL 11/26 2355 Active BASIC ELECTROLYTES PLUS BUN&CR 11/26 2355 Active CBC WITHOUT DIFFERENTIAL 11/26 1800 Active LACTIC ACID 11/26 1549 Active Pathway - chart 11/26 1508 Active Patient Data 11/26 1508 Active Code Status 11/26 1508 Active Patient Data 11/26 1444 Active Admit to inpatient 11/26 1344 Active BLOOD PRODUCT PICKUP 11/26 1343 Active LEUKOCYTE POOR (PACKED CELLS) 11/26 1336 Active Intake & Output 11/26 1256 Active Add-on Test (ER Only) 11/26 1255 Active MISTAKE 11/26 1249 Active Telemetry/Galvanizer Zinc 11/26 1249 Active TROPONIN LEVEL 11/26 1249 Complete PARTIAL THROMBOPLASTIN TIME 11/26 1249 Complete PROTHROMBIN TIME 11/26 1249 Complete LACTIC ACID 11/26 1249 Complete COMPREHENSIVE METABOLIC PANEL 11/26 1249 Complete CBC WITHOUT DIFFERENTIAL 11/26 1249 Complete B-TYPE NATRIURETIC PEP (BNP) 11/26 1249 Complete TYPE & SCREEN (NOT X-MATCH) 11/26 1249 Active EKG 11/26 1248 Active Current Medications Sig/Lacey Start time Last Medication Dose Stop Time Status Admin Pantoprazole Sodium 40 MG BID 11/26 1510 AC 11/26 (Protonix) 1525 Laboratory Tests 11/26/17 1254: Anion Gap 10, Estimated GFR > 60, BUN/Creatinine Ratio 47.3 H, Glucose 119 H, Lactic Acid 2.7 H, Calcium 8.3 L, Total Bilirubin 0.3, AST 17, ALT 24, Alkaline Phosphatase 88, Troponin I 0.04, Uoe-S-Sanzvtusrtp Pept 3000 H, Total Protein 5.1 L, Albumin 2.8 L, Globulin 2.3, Albumin/Globulin Ratio 1.2, PT 14.4 H, INR 1.38 H, APTT 25, CBC w Diff MAN DIFF ORDERED, RBC 1.40 L, MCV 74.6 L, MCH 23.4 L, RDW 27.2 H, MPV 8.8, Gran % 86.7 H, Lymphocytes % 7.3 L , Monocytes % 5.7, Eosinophils % 0.3, Basophils % 0, Absolute Granulocytes 11.8 H, Absolute Lymphocytes 1.0 L, Absolute Monocytes 0.8 H, Absolute Eosinophils 0, Absolute Basophils 0, Platelet Estimate ADEQUATE, Polychromasia 1+, Hypochromic-Microcytic 4+, Poikilocytosis 3+, Anisocytosis 3+, Microcytic Cells 2+, Ovalocytes 1+, Midway Cells 1+, Elliptocytes 1+, Schistocytes 2+, PUBS MCHC 31.4 L 11/26/2017 1:57:28 PM patient has low H&H, positive guaiac. Blood ordered. Patient will be sent to the ICU for GI bleed, symptomatic anemia. Orthostatics are negative. His blood pressure seems to be responding to small fluid bolus. Recent echocardiogram shows ejection fracture of 35%. Patient seen and evaluated by Dr. Mccormack AND HE AGREES WITH PLAN. No abdominal pain or chest pain. EKG is unchanged. I do not feel patient is having a AAA. 11/26/2017 2:38:[address] Cui, on-call gastroenterology, he will consult on the patient. Patient being transfused currently. Patient will likely need colonoscopy and endoscopy. Diagnostic Imaging: Viewed by Me: Radiology Read. Discussed w/RAD: Radiology Read. CXR Impression: no acute abnormality, no infiltrates, normal size heart, normal mediastinum Initial ED EKG: sinus rhythm at 75 bpm, ventricular premature complexes Prior EKG: unchanged (Gina Bauman) Departure Departure Time of Disposition: 1503 Disposition: STILL A PATIENT Condition: Stable Clinical Impression Primary Impression: GI bleed Qualifiers: GI bleed type/associated pathology: unspecified gastrointestinal hemorrhage type Qualified Code: K92.2 - Gastrointestinal hemorrhage, unspecified Secondary Impressions: Anemia Qualifiers: Anemia type: unspecified type Qualified Code: D64.9 - Anemia, unspecified Hypotension Qualifiers: Hypotension type: unspecified hypotension type Qualified Code: I95.9 - Hypotension, unspecified Referrals: Miguelito Vicente MD (PCP/Family) Departure Forms: Customer Survey General Discharge Information Admission Note Spoke With: Maria Isabel ERICKSON,Shane Nunez Documentation of Exam: Documentation of any treatments & extenuating circumstances including Concerns Regarding Discharge (functional status, medication knowledge or non-compliance, living conditions, etc.) that warrant an admission rather than observation: Patient requiring ICU level care for acute anemia, likely GI bleed. Requiring transfusion, cardiac monitoring, serial EKGs and troponins secondary to recent and STEMI and stent placement. Cardiology consultation. Gastroenterology consultation. Discharge at this time is medically harmful. Patient requiring supplemental oxygen which is new for this patient. (Gina Bauman) PA/MAIL OFFICER Co-Sign Statement Statement: ED Attending supervision documentation- I saw and evaluated the patient. I have also reviewed all the pertinent lab results and diagnostic results. I agree with the findings and the plan of care as documented in the PA's/MAIL OFFICER's documentation. Acute severe anemia secondary to GI losses, recent NSTEMI requiring cardiac stent. ICU care, GI [] I have reviewed the ED Record and agree with the PA's/MAIL OFFICER's documentation. [] Additions or exceptions (if any) to the PAs/MAIL OFFICER's note and plan are summarized below: [] (Saroj ERICKSON,Deacon) Critical Care Note Critical Care Note Critical Care Time: 75-104 min (Farhana HOLLIS,Gina)
[2017-11-26 13:05] LABS: ABSOLUTE BASOPHIL COUNT 0 /CUMM (0.0-0.2); ABSOLUTE EOSINOPHIL COUNT 0 /CUMM (0.0-0.7); ABSOLUTE GRANULOCYTE CT 11.8 /CUMM (1.4-6.5); ABSOLUTE MONOCYTE COUNT 0.8 /CUMM (0.10-0.60); BASOPHIL % 0 % (0.0-2.0); EOSINOPHIL % 0.3 % (0-5); GRANULOCYTE % 86.7 % (42.2-75.2); MEAN CORPUSCULAR HGB 23.4 PG (27.0-31.0); MEAN CORPUSCULAR HGB CONC 31.4 G/DL (33.0-37.0); MEAN CORPUSCULAR VOLUME 74.6 FL (80.0-94.0); MEAN PLATELET VOLUME 8.8 FL (7.4-10.4); PLATELET COUNT 214 /CUMM (130-400); RBC DISTRIBUTION WIDTH 27.2 % (11.5-14.5); WHITE BLOOD CELL COUNT 13.6 /CUMM (4.8-10.8)
[2017-11-26 13:09] LABS: HEMATOCRIT 10.4 % (42-52)
[2017-11-26 13:12] LABS: PT 14.4 SEC (9.4-12.5); PTT 25 SEC (25-37)
--- NOTE | 2017-11-26 13:49 | RADIOLOGY REPORT ---
EXAMINATION: XR PORTABLE CHEST CLINICAL INFORMATION: 82-year-old male patient with hypoxia. COMPARISON: CT the chest on 11/04/2017. (Bilateral pleural effusions greater on the right to left with bilateral lower lobe consolidations/atelectasis). Chest x-ray done on 11/04/2017. TECHNIQUE: Portable AP semierect view of the chest was obtained. FINDINGS: Reexamination again shows low lung volumes with bibasilar airspace disease similar to the chest x-ray of 11/04/2017. The pleural effusions are difficult to assess on this semierect portable radiograph. Deviation of the trachea to the right at the thoracic inlet is caused by the dilated thoracic aorta. IMPRESSION: Continued bilateral lower lobe atelectasis.
[2017-11-26] MEDS ORDERED: LIPITOR80 M1 PO (15:03)
--- NOTE | 2017-11-26 15:04 | History & Physical ---
Angel ERICKSON,[facility] 11/26/17 1503: General Information and HPI MD Statement: I have seen and personally examined BRENDA MERRITT and documented this H&P. The patient is a 82 year old M who presented with a patient stated chief complaint of weakness and low H/H. Source of Information: patient, old records Exam Limitations: no limitations History of Present Illness: Mr Merritt is pleasant 82-year-old gentleman with past medical history significant of CHF, Osteomyelitis, hypertension, dyslipidemia, ACS and recent PCI who is brought in by ambulance from [facility] on 11/26/2017 after the patient was found to have a low H&H. It appears that the patient has been complaining of fatigue over the last few days. He subsequently visited his primary care physician on Friday11/22/2017 and blood work which was done which showed a H&H of 3.2 and 10.3 respectively. Prior to being brought into the emergency department this morning his vitals were as follows blood pressure 94/44. Heart rate 78. Respiration 20. Temperature 98.2. Patient was last seen at [facility] from 10/31 to . He was subsequently transferred to [facility] for acute coronary syndrome non-ST elevation [place] on 11/05, and then discharged to [facility] [place] on 11/14. While [facility] he underwent PCI with Synergy HARPREET after it was found that the patient has a 95% occlusion of LAD. His admission here was compicated with respiratory acidodi with septic shock requiring intubation. He was extubated after 2 days. At the time of our clinical interaction the patient endorsed dark stools which he attributes to his supplemental iron. He also reports weakness and fatigue. The patient has not previously had a Colonoscopy. He was due to follow up as an outpatient, although ended up having a STEMI. Patient would be open to an EGD or colonoscopy intervention if that would help him feel better. He states that he is on an aspirin and is currently on Plavix. He denies any bright red blood per rectum or any melena. Patient was guaiac positive in the emergency department. The patient also endorses a recent 5 pound weight loss. Patient's primary care physician is Dr. Vicente. Patient's grain roaster is Dr. Bolaños. Patient was due to follow up with Dr Crow on 12/03/2017. Allergies/Medications Allergies: Coded Allergies: No Known Allergies (12/06/16) Home Med list Aspirin (Ecotrin*) 81 MG TABLET.DR 1 TAB PO DAILY HEART/BLOOD (Reported) Atorvastatin Calcium (Lipitor) 80 MG TABLET 1 TAB PO DAILY CHOLESTEROL ( Reported) Clopidogrel Bisulfate (Clopidogrel) 75 MG TABLET 1 TAB PO DAILY HEART HEALTH Ferrous Sulfate 325 MG (65 MG IRON) TABLET 1 TAB PO DAILY low iron Furosemide (Lasix) 40 MG TABLET 1 TAB PO DAILY DIURETIC (Reported) Ipratropium/Albuterol Sulfate (Iprat-Albut 0.5-3(2.5) MG/3 Ml) 0.5 MG-3 MG (2.5 MG BASE)/3 ML AMPUL.NEB 1 VIAL INH Q6H RESP. (WHILE AWAKE) (Reported) Lisinopril (Zestril) 2.5 MG TABLET 1 TAB PO QHS BP (Reported) Melatonin 3 MG TABLET 1 TAB PO QHS SUPPLEMENT (Reported) Metoprolol Succ XL (Toprol XL) 25 MG TAB 75 MG PO DAILY HEART/BP (Reported) Sennosides/Docusate Sodium (Senna S Tablet) 8.6 MG-50 MG TABLET 1 TAB PO QHS GI (Reported) Sodium Chloride (Saline Nasal Mineral) 0.65 % SPRAY 1 SPRAY NASB TID PRN NASAL CONGESTION (Reported) Compliance With Home Meds: GOOD Past History Travel History Traveled to [place] past 21 day No Medical History Neurological: NONE EENT: NONE Cardiovascular: hypertension, hyperlipidemia, NSTEMI, CARDIAC STENT Respiratory: NONE Gastrointestinal: GI BLEED Hepatic: NONE Renal: EVELIN Musculoskeletal: NONE Psychiatric: NONE Endocrine: NONE Blood Disorders: anemia Other Medical Hx: OSTEOMYELITIS SPINE History of MRSA: No History of VRE: No History of CDIFF: No Influenza Vaccine: 10/01/16 Surgical History Surgical History: PCI Past Family/Social History Family History Relations & Conditions if any MOTHER FH: diabetes mellitus Relation not specified for: *No pertinent family history Psychosocial History Where do you live? Home Who Do You Live With? self Services at Home: None Primary Language: Tanzanian Smoking Status: Former Smoker (Heavy Smoking History of Cigar) ETOH Use: occasional use Illicit Drug Use: denies illicit drug use Living Will? yes Functional Ability ADLs Independent: dressing, eating, toileting, bathing. Ambulation: independent IADLs Independent: shopping, housework, finances, food prep, telephone, transportation , medication admin. Review of Systems Review of Systems Constitutional: Reports: see HPI, weakness. Cardiovascular: Reports: peripheral edema. Denies: chest pain, edema, orthopena, palpitations. Respiratory: Denies: cough, hemoptysis, short of breath. GI: Denies: abdominal pain, bloating, constipation, diarrhea, distention, bowel incontinence, melena. Genitourinary: Reports: frequency. Denies: dysuria, hesitation. Musculoskeletal: Denies: back pain, gout, joint pain, joint swelling. Skin: Denies: cysts, change in hair/nails, dryness, erythema. Exam & Diagnostic Data Last 24 Hrs of Vital Signs/I&O Vital Signs Date Time Temp Pulse Resp B/P B/P Pulse O2 O2 Flow FiO2 Mean Ox Delivery Rate 11/26 1553 90 22 93/48 97 Nasal 2.0L Cannula 11/26 1450 97.0 73 22 101/47 97 Nasal 2.0L Cannula 11/26 1322 82 18 103/55 98 Room Air 11/26 1307 80 20 100/51 97 Nasal 2.0L Cannula 11/26 1300 99 Room Air 11/26 1244 97.0 118 20 80/38 99 Room Air Intake & Output 11/26 1600 11/26 0800 11/26 0000 Intake Total Output Total Balance Patient 83.461 kg Weight Weight Reported by Patient Measurement Method Physical Exam General Appearance Alert, Oriented X3, Cooperative, No Acute Distress HEENT Mucous membranes Dry Neck Supple, No JVD, No thryomegaly Lymphatic Cervical nl Cardiovascular Regular Rate, Normal S1, Normal S2 Lungs Increased breath sounds Bilaterral lower lung bases Abdomen Normal Bowel Sounds, Soft, No Tenderness Neurological Normal Gait, Normal Speech, Strength at 5/5 X4 Ext, Normal Tone, Cranial Nerves 3-12 NL Extremities Edema 2+. compressin stockings on Vascular Normal Pulses Last 24 Hrs of Labs/Edilberto: Laboratory Tests 11/26/17 1254: Anion Gap 10, Estimated GFR > 60, BUN/Creatinine Ratio 47.3 H, Glucose 119 H, Lactic Acid 2.7 H, Calcium 8.3 L, Total Bilirubin 0.3, AST 17, ALT 24, Alkaline Phosphatase 88, Troponin I 0.04, Biu-J-Ivnjjhdozot Pept 3000 H, Total Protein 5.1 L, Albumin 2.8 L, Globulin 2.3, Albumin/Globulin Ratio 1.2, PT 14.4 H, INR 1.38 H, APTT 25, CBC w Diff MAN DIFF ORDERED, RBC 1.40 L, MCV 74.6 L, MCH 23.4 L, RDW 27.2 H, MPV 8.8, Gran % 86.7 H, Lymphocytes % 7.3 L , Monocytes % 5.7, Eosinophils % 0.3, Basophils % 0, Absolute Granulocytes 11.8 H, Absolute Lymphocytes 1.0 L, Absolute Monocytes 0.8 H, Absolute Eosinophils 0, Absolute Basophils 0, Platelet Estimate ADEQUATE, Polychromasia 1+, Hypochromic-Microcytic 4+, Poikilocytosis 3+, Anisocytosis 3+, Microcytic Cells 2+, Ovalocytes 1+, Micheal Cells 1+, Elliptocytes 1+, Schistocytes 2+, PUBS MCHC 31.4 L Diagnostic Data CXR Results SERVICE DATE: 11/26/17 EXAM TYPE: RAD - XRY-PORTABLE CHEST XRAY EXAMINATION: XR PORTABLE CHEST CLINICAL INFORMATION: 82-year-old male patient with hypoxia. COMPARISON: CT the chest on 11/04/2017. (Bilateral pleural effusions greater on the right to left with bilateral lower lobe consolidations/atelectasis). Chest x-ray done on 11/04/2017. TECHNIQUE: Portable AP semierect view of the chest was obtained. FINDINGS: Reexamination again shows low lung volumes with bibasilar airspace disease similar to the chest x-ray of 11/04/2017. The pleural effusions are difficult to assess on this semierect portable radiograph. Deviation of the trachea to the right at the thoracic inlet is caused by the dilated thoracic aorta. IMPRESSION: Continued bilateral lower lobe atelectasis. DICTATED BY: Albino Iglesias MD Assessment/Plan Assessment: Mr Merritt is pleasant 82-year-old gentleman with past medical history significant for hypertension, dyslipidemia and recent PCI who is brought in by ambulance from [facility] on 11/26/2017 after the patient was found to have a low H&H. It appears that the patient has been complaining of fatigue over the last few days. He subsequently visited his primary care physician on Friday11/22/2017 and blood work which was done which showed a H&H of 3.2 and 10.3 respectively. In the ED the patient remained stable and was transfused two units of PRBC. He has subsequently been brought up to the [facility] for closer monitoring. Problem List #Microcytic anemia, unknown etiology #Acute drop in H/H #Recent PCI s/p LAD occlusion #Bilateral LE edema #Hisotry of Hyponatremia #Leukocytosis GI consultaion, to assess whether patient would benefit from a colonoscopy. His H/H on 11/14/17 was 8.0/28.1, this is an acute drop over the last few week. If GI deems inpatient scope is necessarry, GoLytely. Protonix IV BID Maintain Two Large bore IVs at all times. Ct Abdomen + pelvis without contrast to rule out any bowel wall abnormalities. Keep NPO for now. Serial H/H, Q6-8 hours. Maintain H/H >8 Guiac all stools Serial BEP Cardiology Consultation for recomendation on medications in the setting of recent PCI. Iron studies, B12, folate, reticulocyte count, peripheral smear Leukocytosis Likley Reactive, will monitor. In the setting of lack of being afebrile, will hold off antibitics. UA Keep Legs Elevated. Compression stockings. Patient received Plavix 11/26 in the AM. Will dose Aspirin PO in the evening if OK with GI. Keep NPO for now. DVT PPX: Alps Code: Full Code As Ranked By This Provider Problem List: 1. GI bleed Qualifiers GI bleed type/associated pathology: unspecified gastrointestinal hemorrhage type Qualified Code: K92.2 - Gastrointestinal hemorrhage, unspecified 2. Hypotension Qualifiers Hypotension type: unspecified hypotension type Qualified Code: I95.9 - Hypotension, unspecified 3. Hyponatremia 4. CHF (congestive heart failure) 5. Anemia Qualifiers Anemia type: unspecified type Qualified Code: D64.9 - Anemia, unspecified 6. Dependent edema Core Measures/Misc (08/17) Cerebrovascular Accident CVA/TIA Diagnosis: No Sepsis (View protocol) Sepsis Present: No Shane Nicolas MD 11/26/17 7548: Attending Review Statement Attending Statement Attending MD Statement: examined this patient, discuss w/resident/PA/ACID FILLER, agreed w/resident/PA/ACID FILLER, discussed with family, reviewed EMR data (avail), discussed with nursing, discussed with case mgmt, reviewed images, amended to note Attending Assessment/Plan: Pt with sever cad with recent HARPREET LAD with cardiogenic shock with resp failure who was intubated for hypercarbia with shock, INitial ef was 20 percent and 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
[2017-11-26] MEDS ORDERED: IPRAT-ALBUT 0.5-3 ML INH (15:05)
[2017-11-26] MEDS ORDERED: LASIX40 M1 PO (15:05)
[2017-11-26] MEDS ORDERED: MELATONIN3 M4 PO (15:06)
[2017-11-26] MEDS ORDERED: ZESTRIL2.5 M1 PO (15:06)
[2017-11-26] MEDS ORDERED: SENNA S TABLET1 EACH PO (15:06)
[2017-11-26] MEDS ORDERED: SALINE NASAL SP30 ML NASB (15:07)
[2017-11-26] MEDS ORDERED: TOPROL XL25 M1 PO (15:07)
--- NOTE | 2017-11-26 19:03 | Cons- Gastroenterology ---
General Information and HPI Consulting Request Date of Consult: 11/26/17 Requested By: Maria Isabel ERICKSON,Shane Nunez Reason for Consult: I was called by the [facility] approximately 2:30 p.m. to assess symptomatic anemia in a patient with brown, OB+ stool & ASHD, post recent NSTEMI, txd with drug eluting stent 11/06/17 at [facility], per Dr. Villarreal. *Please refer to the relatively recent GI consult of 11/02/[address] Candelario, when the patient refused any GI workup. Source of Information: patient, old records Exam Limitations: no limitations History of Present Illness: 82 y/o male, HTN, HLD, hx CHF, ASHD, post recent NSTEMI 11/05/17, requiring drug eluting cardiac stent at [facility] per Dr. Villarreal, at that time, on ASA & Plavix ( details of cardiac cath & coronary anatomy initially unavailable-> subsequently found to be 95% proximal LAD lesion, txd with Synergy stent, per my d/w Dr. Villarreal & Dr. Bolaños). The patient was seen by Dr. Candelario in GI consultation 02/14, after being admitted to [facility] 10/31/17 with complaints of worsening lower extremity edema, hypoNa, fatigue, & CHF exacerbation in the setting of new microcytic anemia. He got Lasix for the swelling with improvement, and then felt better. He was intermittently hypoxic & hypotensive then, requiring right IJ TLC. *At that time, he refused any endoscopic workup, despite being made aware of the risk of an occult GI malignancy. He reportedly was OB-negative then. He was transfused a total of 3 units PRBC that admission, for H/H 06/22 with MCV 63 & low ferritin. At that time, he denied any GERD, odynophagia, dysphagia, nausea, vomiting, early satiety, abdominal pain, hematemesis, melena, rectal bleeding, diarrhea, constipation, obstipation, tenesmus, change in stool caliber, weight loss, or change in appetite. He was not on any NSAIDS. He had a history of EVELIN & past hx alpha Strep bacteremia in 12/2016, due to L2-L3/L3-L4 osteomyelitis, txd with 6 weeks Ampicillin. *He had never had a baseline screening colonoscopy prior to the anemia, nor an EGD. He never followed up with Dr. Candelario as an outpatient. The patient had a normal troponin on 10/31/17, which bumped up to 12.7 & he was transferred to [facility] on 11/05/17 for subsequent drug-eluting cardiac stent later that day. He was txd with broad spectrum antibiotics at [facility] prior to his transfer (Vanco/Fortaz), switched to Ceftriaxone, although his hypotension, leukocytosis, tachypnea & tachycardia then were felt to be due to an acute NE, rather than sepsis. There was no definite infiltrate then, & his positive E. Coli UC was felt to be a contaminant, per ID. The patient was convalescing at [facility] and had labs there by his PMD, revealing severe anemia (H/H 3.2/10.3), prompting him to be sent in to the [facility], where he arrived 11/26/17 at 12:43 p.m. Upon arrival, BP 80/38, P 118, R 20, T 97, O2 sat RA 99%. His BP improved to low normal after IVF & PRBC. At the time of my GI consult, he was in the midst of his 2nd unit PRBC & was adimitted to the ICU. *His GI ROS from above and below remained negative. He denied any melena, but his stools were intermittently dark on Fe. He denied any CP, but noted CONNELL & fatigue. He denied any SOB at rest, LOC, syncope, or palpitations. He denied any fevers, chills, acute back pain, sx of UTI, or URI. He denied any previous abdominal surgery. *He adamantly continued to refuse any invasive GI workup, although he was A & O x 3. He claimed that he made his own medical decisions, but that if he were incapacitated, 2 of his 3 children were POA (his son, Edu Merritt, & his dtr, Delia Dillon). *He had brown, OB+ stool on exam in the ER, per the PA, Gina Delcid. The patient recently D/C cigars. He denied any cigarettes, EtOH, or illicit drugs. He denied any FHx of GI disease, GI Ca, or inherited liver disease. There is no history of abdominal trauma or AAA. 12/05/16: IPEP/SPEP- without monoclonal gammopathy (c/w acute phase rx). 10/31/17: borderline elevated T4 11.9, nl TT3 1.05, nl TSH 1.26, Fe 13, TIBC 483 , *Fe sat 2%, *ferritin 12.3, B12 597, folate 8.8. 11/26/17: Admission labs- WBC 13.6 (87% gran/12 gran Ab), H/H 3.3/10.4, MCV 74.6 , RDW 27.2, PLT 214, PT 14.4, INR 1.38, PTT 25, glucose 119, BUN/Cr 52/1.1, GFR > 60, Na 136, K 4.1, HCO3 27, AG 10, lactate 2.7, Ca2+ 8.3, albumin 2.8, globulin 2.3, TBil 0.3, alk phos 88, AST 17, ALT 24, troponin 0.04, CK < 20, BNP 3000. 11/26/17: U/A- clear yellow, 1.020, 6.0, 3-5 WBC, rare hyaline cast, few granular cast, few bacteria, micro- otherwise negative; negative nitrite, trace esterase 11/04/17: CT ABD & PELVIS W/O IV CONTRAS; CT CHEST WO IV CONTRAST- Small right greater than trace left bilateral pleural effusions with associated airspace disease. Cholelithiasis without evidence of cholecystitis. Residual contrast material present within the collecting system. Sigmoid diverticulosis without evidence of diverticulitis. Moderate to large amount stool within the rectum. 11/04/17: ECHOCARDIOGRAM- Normal size left ventricle. Mild concentric left ventricular hypertrophy. Segmental wall motion abnormalities as described above. Overall left ventricular systolic function appeared moderately hypokinetic with an estimated ejection fraction of 35%. Cannot exclude apical thrombus. Abnormal relaxation filling pattern of the left ventricle for age (stage 1 diastolic dysfunction). Normal right ventricular size and function. Normal right atrial size. Mild left atrial dilatation. Mild mitral regurgitation. Mild tricuspid regurgitation. No . Moderate pulmonary hypertension. Mild pulmonic regurgitation. Small pericardial effusion. Dilated inferior vena cava. 11/26/17: EKG- NSR @ 75, borderline LAD, borderline prolonged QT interval, indeterminate age anteroseptal NE, occasional unifocal PVC (without significant change from EKG of 11/05/17). 11/26/17: XR PORTABLE CHEST- Low lung volumes. Continued bilateral lower lobe atelectasis. Deviation of the trachea to the right at the thoracic inlet is caused by the dilated thoracic aorta. Allergies/Medications Allergies: Coded Allergies: No Known Allergies (12/06/16) Home Med List: Aspirin (Ecotrin*) 81 MG TABLET.DR 1 TAB PO DAILY HEART/BLOOD (Reported) Atorvastatin Calcium (Lipitor) 80 MG TABLET 1 TAB PO DAILY CHOLESTEROL ( Reported) Clopidogrel Bisulfate (Clopidogrel) 75 MG TABLET 1 TAB PO DAILY HEART HEALTH Ferrous Sulfate 325 MG (65 MG IRON) TABLET 1 TAB PO DAILY low iron Furosemide (Lasix) 40 MG TABLET 1 TAB PO DAILY DIURETIC (Reported) Ipratropium/Albuterol Sulfate (Iprat-Albut 0.5-3(2.5) MG/3 Ml) 0.5 MG-3 MG (2.5 MG BASE)/3 ML AMPUL.NEB 1 VIAL INH Q6H RESP. (WHILE AWAKE) (Reported) Lisinopril (Zestril) 2.5 MG TABLET 1 TAB PO QHS BP (Reported) Melatonin 3 MG TABLET 1 TAB PO QHS SUPPLEMENT (Reported) Metoprolol Succ XL (Toprol XL) 25 MG TAB 75 MG PO DAILY HEART/BP (Reported) Sennosides/Docusate Sodium (Senna S Tablet) 8.6 MG-50 MG TABLET 1 TAB PO QHS GI (Reported) Sodium Chloride (Saline Nasal [place]) 0.65 % SPRAY 1 SPRAY NASB TID PRN NASAL CONGESTION (Reported) Current Medications: Current Medications Sig/Lacey Start time Last Medication Dose Route Stop Time Status Admin Aspirin 81 MG DAILY 11/26 1900 AC PO Atorvastatin Calcium 80 MG 1700 11/27 1700 AC PO Furosemide 20 MG ONCE ONE 11/26 1715 DC IV 11/26 1716 Ipratropium [place] 2.5 ML Q6P PRN 11/26 1700 AC INH Pantoprazole Sodium 80 MG Q10H 11/26 1930 AC Dextrose/Water 100 ML IV Pantoprazole Sodium 0 .STK-MED ONE 11/26 1527 DC IV Pantoprazole Sodium 40 MG BID 11/26 1510 DC 11/26 IV 1525 Senna 187 MG AT BEDTIME PRN 11/26 1845 AC PO Sodium Chloride 1 SPRAY TID PRN 11/26 1700 AC [place] Sodium Chloride 250 ML BOLUS ONE 11/26 1300 DC 11/26 IV 11/26 0320 [id number] Past History Travel History Traveled to [place] past 21 day No Medical History Blood Transfusion Hx: Yes Neurological: NONE EENT: NONE Cardiovascular: hypertension, hyperlipidemia, NSTEMI (11/05/17 f/b drugeluting stent), CARDIAC STENT Respiratory: NONE Gastrointestinal: GI BLEED- refused w/u for Fe def anemia Hepatic: cholelithiasis Renal: EVELIN- resolved Musculoskeletal: NONE Psychiatric: NONE Endocrine: NONE Blood Disorders: anemia Cancer(s): NONE 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 FH: diabetes mellitus FATHER, , Age 30-40; Cause: Unknown cause of morbidity or mortality. Relation not specified for: *No pertinent family history Psychosocial History Where Do You Live? Home (recently at [facility]) Who Do You Live With? self Services at Home: None Primary Language: Belgian Smoking Status: Former Smoker (Heavy Smoking History of Cigar) ETOH Use: denies use Illicit Drug Use: denies illicit drug use Living Will? yes Power of Flush Tester/HCP? yes Name of POA/HCP: dtr- Delia Dillon; son- Edu Merritt Other Social History: since 2001. Lives alone. Recently in [facility] to recuperate post cardiac cath/NSTEMI. Recently D/C cigars. Denied cigarettes. No EtOH or illicit drugs. 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 3 children (1 son/2 dtrs )- [employer]. Thept makes his own medical decisions. 2 of his children are POA (dtr, Delia Dillon & son, Edu Merritt). Functional Ability ADLs Independent: dressing, eating, toileting, bathing. Ambulation: independent IADLs Independent: shopping, housework, finances, food prep, telephone, transportation , medication admin. 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 for the [employer]. ECHO Results (as available) Date of last Echo 11/04/17 EF% 35 Review of Systems Review of Systems: Full 14 point ROS otherwise noncontributory and as above. Review of Systems Constitutional: Denies: chills, diaphoresis, fever, malaise, weakness, unexplained weight loss. EENTM: Denies: blurred vision, double vision, visual changes, eye pain, eye drainage, eye tearing, icterus, ear discharge, ear pain, ear redness, hearing changes, nasal congestion, epistaxis, nasal pain, throat pain, throat swelling, mouth pain, tooth pain. Cardiovascular: Reports: peripheral edema. Denies: chest pain, edema, orthopena, palpitations, syncope. Respiratory: Reports: short of breath (CONNELL). Denies: cough, hemoptysis, orthopnea, sputum production, stridor, wheezing. GI: Denies: abdominal pain, bloating, constipation, diarrhea, distention, bowel incontinence, melena, nausea, bloody stool, changes in stool, vomiting, steatorrhea. Genitourinary: Denies: discharge, dysuria, frequency, hematuria, hesitation, nocturia, pain, urgency. Musculoskeletal: Denies: back pain, gout, joint pain, joint swelling, muscle pain, muscle stiffness, neck pain. Skin: Denies: cysts, change in skin color, change in hair/nails, dryness, erythema, jaundice, lesions, lymphangitis, lumps, moles, rash. Neurological/Psychological: Denies: anxiety, ataxia, cognitive dysfunction, confusion, depressed, dementia, emotional problems, headache, numbness, paresthesia, pre-existing deficit, petit mal seizures, tingling, tremors, tonic-clonic seizures, unable to move lower ext , unable to move upper ext, weakness. Hematologic/Endocrine: Denies: bruising, bleeding, polyuria, polydipsia. Immunologic/Allergic: Denies: splenectomy, HIV/AIDS, lymphadenopathy. All Other Systems: Reviewed and Negative Exam & Diagnostic Data Vital Signs and I&O Vital Signs Date Time Temp Pulse Resp B/P B/P Pulse O2 O2 Flow FiO2 Mean Ox Delivery Rate 11/26 1709 99 Nasal 2.0L Cannula 11/26 1553 90 22 93/48 97 Nasal 2.0L Cannula 11/26 1450 97.0 73 22 101/47 97 Nasal 2.0L Cannula 11/26 1322 82 18 103/55 98 Room Air 11/26 1307 80 20 100/51 97 Nasal 2.0L Cannula 11/26 1300 99 Room Air 11/26 1244 97.0 118 20 80/38 99 Room Air Intake & Output 11/26 1600 11/26 0400 11/25 1600 11/25 0400 11/24 1600 11/24 0400 Intake Total Output Total Balance Patient 184 lb Weight Weight Reported by Patient Measurement Method Physical Exam: Well-developed, slightly malnourished male in no apparent distress, feeling stronger post transfusion. Sclera anicteric. Conjunctiva pale. Oropharynx clear. No oral thrush. No aphthous ulcers. There is no adenopathy, thyromegaly, or JVD. Positive HJR. No peripheral stigmata of inflammatory bowel disease or chronic liver disease on exam. No spiders on the anterior chest wall. No gynecomastia. No CVA tenderness. Lungs: clear to A&P. No wheezing, rales, or rhonchi. Slight decreased BS at the bases B/L. Heart exam: regular rate rhythm, S1 and S2, with soft I/ systolic murmur. Abdominal exam: normal bowel sounds, soft belly, nontender, without guarding or rebound. No mass. No organomegaly. Negative Holt sign. No fluid shift. No pulsatile mass. No epigastric bruit. Digital rectal exam (11/26/17: per TELMA Lopez, in [facility])- brown stool, OB-positive. Extremities: without cyanosis or clubbing. 1-2+ pitting pedal edema B/L. No palpable cords. B/L ALPS. Mild DJD. No rash. No palmar erythema. No Dupuytren's contractures. Distal pulses 1+ bilaterally. DTRs 2+ bilaterally. Alert and oriented x 3. Left handed. Motor 5/5 B/L. No tremor. No asterixis. Results Pertinent Lab Results: Laboratory Tests 11/26 11/26 1800 1254 Chemistry Sodium (137 - 145 mmol/L) 136 L Potassium (3.5 - 5.1 mmol/L) 4.1 Chloride (98 - 107 mmol/L) 99 Carbon Dioxide (22 - 30 mmol/L) 27 Anion Gap (5 - 16) 10 BUN (9 - 20 mg/dL) 52 H Creatinine (0.7 - 1.2 mg/dL) 1.1 Estimated GFR (>60 ml/min) > 60 BUN/Creatinine Ratio (7 - 25 %) 47.3 H Glucose (65 - 99 mg/dL) 119 H Lactic Acid (0.7 - 2.1 mmol/L) Pending 2.7 H Calcium (8.4 - 10.2 mg/dL) 8.3 L Total Bilirubin (0.2 - 1.3 mg/dL) 0.3 AST (17 - 59 U/L) 17 ALT (21 - 72 U/L) 24 Alkaline Phosphatase (< 127 U/L) 88 Troponin I (<0.11 ng/ml) 0.04 Eet-C-Qcnqrxiqfot Pept (<125 pg/mL) 3000 H Total Protein (6.3 - 8.2 g/dL) 5.1 L Albumin (3.5 - 5.0 g/dL) 2.8 L Globulin (1.9 - 4.2 gm/dL) 2.3 Albumin/Globulin Ratio (1.1 - 2.2 %) 1.2 Coagulation PT (9.4 - 12.5 SEC) 14.4 H INR (0.90 - 1.17) 1.38 H APTT (25 - 37 SEC) 25 Hematology CBC w Diff Cancelled MAN DIFF ORDERED WBC (4.8 - 10.8 /CUMM) Cancelled 13.6 H RBC (4.70 - 6.10 /CUMM) Cancelled 1.40 L Hgb (14.0 - 18.0 G/DL) Cancelled 3.3 *L Hct (42 - 52 %) Cancelled 10.4 *L MCV (80.0 - 94.0 FL) Cancelled 74.6 L MCH (27.0 - 31.0 PG) Cancelled 23.4 L RDW (11.5 - 14.5 %) Cancelled 27.2 H Plt Count (130 - 400 /CUMM) Cancelled 214 MPV (7.4 - 10.4 FL) Cancelled 8.8 Gran % (42.2 - 75.2 %) 86.7 H Lymphocytes % (20.5 - 51.1 %) 7.3 L Monocytes % (1.7 - 9.3 %) 5.7 Eosinophils % (0 - 5 %) 0.3 Basophils % (0.0 - 2.0 %) 0 Absolute Granulocytes (1.4 - 6.5 /CUMM) 11.8 H Absolute Lymphocytes (1.2 - 3.4 /CUMM) 1.0 L Absolute Monocytes (0.10 - 0.60 /CUMM) 0.8 H Absolute Eosinophils (0.0 - 0.7 /CUMM) 0 Absolute Basophils (0.0 - 0.2 /CUMM) 0 Platelet Estimate (ADEQUATE) ADEQUATE Polychromasia 1+ Hypochromic-Microcytic 4+ Poikilocytosis 3+ Anisocytosis 3+ Microcytic Cells 2+ Ovalocytes 1+ Micheal Cells 1+ Elliptocytes 1+ Schistocytes 2+ PUBS MCHC (33.0 - 37.0 G/DL) Cancelled 31.4 L Urines Urinalysis LIGHT H Urine Color (YEL,AMB,STR) YEL Urine Clarity (CLEAR) CLEAR Urine pH (5.0 - 8.0) 6.0 Ur Specific [place] (1.001 - 1.035) 1.020 Urine Protein (NEG,<30 MG/DL) NEG Urine Ketones (NEG) NEG Urine Nitrite (NEG) NEG Urine Bilirubin (NEG) NEG Urine Urobilinogen (0.1 - 1.0 EU/dl) 0.2 Ur Leukocyte Esterase (NEG) TRACE H Ur Microscopic SEDIMENT EXAMINED Urine WBC (0 - 2 /HPF) 3-5 H Ur Epithelial Cells (NONE,FEW) FEW Urine Bacteria (NEG/NONE) FEW H Hyaline Casts (0/LPF) RARE H Granular Casts (NONE /LPF) FEW H Urine Mucus (FEW,NONE) FEW Urine Hemoglobin (NEG) NEG Urine Glucose (N MG/DL) NEG Imaging/Other Studies: 11/04/17: CT ABD & PELVIS W/O IV CONTRAS; CT CHEST WO IV CONTRAST- Small right greater than trace left bilateral pleural effusions with associated airspace disease. Cholelithiasis without evidence of cholecystitis. Residual contrast material present within the collecting system. Sigmoid diverticulosis without evidence of diverticulitis. Moderate to large amount stool within the rectum. 11/04/17: ECHOCARDIOGRAM- Normal size left ventricle. Mild concentric left ventricular hypertrophy. Segmental wall motion abnormalities as described above. Overall left ventricular systolic function appeared moderately hypokinetic with an estimated ejection fraction of 35%. Cannot exclude apical thrombus. Abnormal relaxation filling pattern of the left ventricle for age (stage 1 diastolic dysfunction). Normal right ventricular size and function. Normal right atrial size. Mild left atrial dilatation. Mild mitral regurgitation. Mild tricuspid regurgitation. No . Moderate pulmonary hypertension. Mild pulmonic regurgitation. Small pericardial effusion. Dilated inferior vena cava. 11/26/17: EKG- NSR @ 75, borderline LAD, borderline prolonged QT interval, indeterminate age anteroseptal NE, occasional unifocal PVC (without significant change from EKG of 11/05/17). 11/26/17: XR PORTABLE CHEST- Low lung volumes. Continued bilateral lower lobe atelectasis. Deviation of the trachea to the right at the thoracic inlet is caused by the dilated thoracic aorta. Assessment/Plan Assessment/Recommendations: 82 y/o male, HTN, HLD, hx CHF, ASHD, post recent NSTEMI 11/05/17, requiring drug eluting cardiac stent at [facility] per Dr. Villarreal, at that time, on ASA & Plavix ( details of cardiac cath & coronary anatomy initially unavailable-> subsequently found to be 95% proximal LAD lesion, txd with Synergy stent, per my d/w Dr. Villarreal & Dr. Bolaños). The patient was seen by Dr. Candelario in GI consultation 02/14, after being admitted to [facility] 10/31/17 with complaints of worsening lower extremity edema, hypoNa, fatigue, & CHF exacerbation in the setting of new microcytic anemia. He got Lasix for the swelling with improvement, and then felt better. He was intermittently hypoxic & hypotensive then, requiring right IJ TLC. *At that time, he refused any endoscopic workup, despite being made aware of the risk of an occult GI malignancy. He reportedly was OB-negative then. He was transfused a total of 3 units PRBC that admission, for H/H 06/22 with MCV 63 & low ferritin. At that time, he denied any GERD, odynophagia, dysphagia, nausea, vomiting, early satiety, abdominal pain, hematemesis, melena, rectal bleeding, diarrhea, constipation, obstipation, tenesmus, change in stool caliber, weight loss, or change in appetite. He was not on any NSAIDS. He had a history of EVELIN & past hx alpha Strep bacteremia in 12/2016, due to L2-L3/L3-L4 osteomyelitis, txd with 6 weeks Ampicillin. *He had never had a baseline screening colonoscopy prior to the anemia, nor an EGD. He never followed up with Dr. Candelario as an outpatient. The patient had a normal troponin on 10/31/17, which bumped up to 12.7 & he was transferred to [facility] on 11/05/17 for subsequent drug-eluting cardiac stent later that day. He was txd with broad spectrum antibiotics at [facility] prior to his transfer (Vanco/Fortaz), switched to Ceftriaxone, although his hypotension, leukocytosis, tachypnea & tachycardia then were felt to be due to an acute NE, rather than sepsis. There was no definite infiltrate then, & his positive E. Coli UC was felt to be a contaminant, per ID. The patient was convalescing at [facility] and had labs there by his PMD, revealing severe anemia (H/H 3.2/10.3), prompting him to be sent in to the [facility] ER, where he arrived 11/26/17 at 12:43 p.m. Upon arrival, BP 80/38, P 118, R 20, T 97, O2 sat RA 99%. His BP improved to low normal after IVF & PRBC. At the time of my GI consult, he was in the midst of his 2nd unit PRBC & was adimitted to the ICU. *His GI ROS from above and below remained negative. He denied any melena, but his stools were intermittently dark on Fe. He denied any CP, but noted CONNELL & fatigue. He denied any SOB at rest, LOC, syncope, or palpitations. He denied any fevers, chills, acute back pain, sx of UTI, or URI. He denied any previous abdominal surgery. *He adamantly continued to refuse any invasive GI workup, although he was A & O x 3. He claimed that he made his own medical decisions, but that if he were incapacitated, 2 of his 3 children were POA (his son, Edu Merritt, & his dtr, Delia Dillon). *He had brown, OB+ stool on exam in the ER, per the PA, Gina Delcid. The patient recently D/C cigars. He denied any cigarettes, EtOH, or illicit drugs. He denied any FHx of GI disease, GI Ca, or inherited liver disease. There is no history of abdominal trauma or AAA. 12/05/16: IPEP/SPEP- without monoclonal gammopathy (c/w acute phase rx). 10/31/17: borderline elevated T4 11.9, nl TT3 1.05, nl TSH 1.26, Fe 13, TIBC 483 , *Fe sat 2%, *ferritin 12.3, B12 597, folate 8.8. 11/26/17: Admission labs- WBC 13.6 (87% gran/12 gran Ab), H/H 3.3/10.4, MCV 74.6 , RDW 27.2, PLT 214, PT 14.4, INR 1.38, PTT 25, glucose 119, BUN/Cr 52/1.1, GFR > 60, Na 136, K 4.1, HCO3 27, AG 10, lactate 2.7, Ca2+ 8.3, albumin 2.8, globulin 2.3, TBil 0.3, alk phos 88, AST 17, ALT 24, troponin 0.04, CK < 20, BNP 3000. 11/26/17: U/A- clear yellow, 1.020, 6.0, 3-5 WBC, rare hyaline cast, few granular cast, few bacteria, micro- otherwise negative; negative nitrite, trace esterase 11/04/17: CT ABD & PELVIS W/O IV CONTRAS; CT CHEST WO IV CONTRAST- Small right greater than trace left bilateral pleural effusions with associated airspace disease. Cholelithiasis without evidence of cholecystitis. Residual contrast material present within the collecting system. Sigmoid diverticulosis without evidence of diverticulitis. Moderate to large amount stool within the rectum. 11/04/17: ECHOCARDIOGRAM- Normal size left ventricle. Mild concentric left ventricular hypertrophy. Segmental wall motion abnormalities as described above. Overall left ventricular systolic function appeared moderately hypokinetic with an estimated ejection fraction of 35%. Cannot exclude apical thrombus. Abnormal relaxation filling pattern of the left ventricle for age (stage 1 diastolic dysfunction). Normal right ventricular size and function. Normal right atrial size. Mild left atrial dilatation. Mild mitral regurgitation. Mild tricuspid regurgitation. No . Moderate pulmonary hypertension. Mild pulmonic regurgitation. Small pericardial effusion. Dilated inferior vena cava. 11/26/17: EKG- NSR @ 75, borderline LAD, borderline prolonged QT interval, indeterminate age anteroseptal NE, occasional unifocal PVC (without significant change from EKG of 11/05/17). 11/26/17: XR PORTABLE CHEST- Low lung volumes. Continued bilateral lower lobe atelectasis. Deviation of the trachea to the right at the thoracic inlet is caused by the dilated thoracic aorta. *The patient clearly has iron deficiency anemia with OB positive stool. He recently had 11/05/17: NSTEMI & drug-eluting Synergy stent placed in proximal LAD then, which was 95% occluded. The patient is at very high risk for reocclusion and repeat NE if his antiplatelet agents are stopped at this point. This was discussed with the patient in detail. His elevated BUN/Cr ratio of 47:1 on admission was noted, favoring UGI etiology. Uncertain if UGI vs. LGI source ( benign vs. malignant). Recent CT was without retroperitoneal bleed or AAA. Doubt malabsorption. The patient had never had a baseline colonoscopy or EGD, as he repeatedly refused these, initially with Dr. Candelario on 11/02/17. He was still refusing these at the time of my 11/26/17: GI consult, as well. The patient is at higher risk for colonoscopy than EGD, a few weeks post NSTEMI. According to the medical housestaff, the patient then agreed to an EGD after I had left the ICU. I returned to the ICU this p.m. to speak with the patient at length again. The risks and benefits of EGD/colonoscopy were again discussed with the patient by myself in great detail. He is agreeable to EGD, but not to colonoscopy at present. He was told that even if the EGD shows some pathology, he should have a baseline outpatient colonoscopy in view of the severe Fe deficiency anemia. If the EGD is negative, I would advise an inpatient baseline colonoscopy, as the patient allows. If both EGD and colonoscopy are negative, an outpatient PillCam should be entertained. Ideally, I would like the patient to be adequately transfused preoperatively, to minimize any associated risk. The risks and benefits of EGD were discussed with the patient in detail & informed consent for this was obtained. *SUGGEST- NPO. Slowly transfuse to Hgb > 8 (hx ASHD/NSTEMI). May need prophylactic Lasix with history of ASHD. Supplemental O2 as needed. Continue Protonix drip at 8 mg/ hr for now (no reported interaction with Plavix, as opposed to other PPI). Carefully continue Ecotrim 81 mg daily & Plavix for now. Maintain in ICU. DVT prophylaxis with mechanical ALPS. Cardiology follow-up. Serial troponins. No NSAIDS. *Consider celiac panel (i.e.- IgA, tTG Ab, DGP Ab). For EGD (perhaps with SB bx), on 11/27/17. If EGD negative, inpt colonoscopy as patient allows. If EGD shows significant pathology, would still advise baseline outpt colonoscopy, in view of severe Fe deficiency anemia. If EGD/colonoscopy both negative, outpt PillCam as patient allows. Eventual Fe repletion. The above was discussed with the ICU medical housestaff, Dr. Bolaños, & Dr. Villarreal in detail. The patient was given my office number. Further GI recommendations to follow, depending on clinical course. 1 hour of ICU care was spent on the patient. Problem List: 1. Hypotension 2. Iron deficiency anemia 3. GI bleed 4. ASHD (arteriosclerotic heart disease) 5. CHF (congestive heart failure) Copies To: Maria Isabel ERICKSON,Shane Nunez; Mami ERICKSON,Juan Miguel S.; Cherelle ERICKSON PHD,Brennan Nunez; Jules ERICKSON, Miguelito Sanabria. Consult Acknowledgment - Thank you for your consult request.
--- NOTE | 2017-11-26 19:33 | Cons- Cardiology ---
General Information and HPI Consulting Request Date of Consult: 11/26/17 Requested By: Maria Isabel ERICKSON,Shane Nunez Reason for Consult: Marked anemia. Source of Information: patient, old records Exam Limitations: poor historian History of Present Illness: Mr. Oh Merritt is an 82-year-old male with a history of previous hyponatremia, long-standing tobacco use, hyponatremia, hypertension, and dyslipidemia who was recently hospitalized here (10/31-11/05/2017) after presenting with new onset HFpEF and the discovery of anemia for which he refused endoscopy/colonoscopy and who after a stable initial course became hypotensive on 11/04/2719 with ECG changes, positive troponins, and worsening LV function by echocardiography who was stabilized and ultimately transferred to [facility] where he underwent urgent cardiac catheterization that revealed a high-grade proximal LAD stenosis for which he underwent PCI/HARPREET (Synergy) with gradual improvement in his overall status and who presented from [facility] today with complaints of weakness and the discovery of profound anemia. At present he is without complaints except for continued weakness and specifically denies any chest discomfort, shortness of breath, palpitations, etc. Allergies/Medications Allergies: Coded Allergies: No Known Allergies (12/06/16) Home Med List: Aspirin (Ecotrin*) 81 MG TABLET.DR 1 TAB PO DAILY HEART/BLOOD (Reported) Atorvastatin Calcium (Lipitor) 80 MG TABLET 1 TAB PO DAILY CHOLESTEROL ( Reported) Clopidogrel Bisulfate (Clopidogrel) 75 MG TABLET 1 TAB PO DAILY HEART HEALTH Ferrous Sulfate 325 MG (65 MG IRON) TABLET 1 TAB PO DAILY low iron Furosemide (Lasix) 40 MG TABLET 1 TAB PO DAILY DIURETIC (Reported) Ipratropium/Albuterol Sulfate (Iprat-Albut 0.5-3(2.5) MG/3 Ml) 0.5 MG-3 MG (2.5 MG BASE)/3 ML AMPUL.NEB 1 VIAL INH Q6H RESP. (WHILE AWAKE) (Reported) Lisinopril (Zestril) 2.5 MG TABLET 1 TAB PO QHS BP (Reported) Melatonin 3 MG TABLET 1 TAB PO QHS SUPPLEMENT (Reported) Metoprolol Succ XL (Toprol XL) 25 MG TAB 75 MG PO DAILY HEART/BP (Reported) Sennosides/Docusate Sodium (Senna S Tablet) 8.6 MG-50 MG TABLET 1 TAB PO QHS GI (Reported) Sodium Chloride (Saline Nasal [place]) 0.65 % SPRAY 1 SPRAY NASB TID PRN NASAL CONGESTION (Reported) Review of Systems Review of Systems: A 14 point system review was obtained was noncontributory, other than as above. Past History Travel History Traveled to [place] past 21 day No Medical History Blood Transfusion Hx: Yes Neurological: NONE EENT: NONE Cardiovascular: hypertension, hyperlipidemia, NSTEMI, CARDIAC STENT Respiratory: NONE Gastrointestinal: GI BLEED Hepatic: NONE Renal: EVELIN Musculoskeletal: NONE Psychiatric: NONE Endocrine: NONE Blood Disorders: anemia Other Medical Hx: OSTEOMYELITIS SPINE Surgical History Surgical History: PCI Family History Relations & Conditions If Any: MOTHER FH: diabetes mellitus Relation not specified for: *No pertinent family history Psychosocial History Where Do You Live? Home Who Do You Live With? self Services at Home: None Primary Language: [place] Smoking Status: Former Smoker (Heavy Smoking History of Cigar) ETOH Use: occasional use Illicit Drug Use: denies illicit drug use Living Will? yes Functional Ability ADLs Independent: dressing, eating, toileting, bathing. Ambulation: independent IADLs Independent: shopping, housework, finances, food prep, telephone, transportation , medication admin. Exam & Diagnostic Data Vital Signs and I&O Vital Signs Date Time Temp Pulse Resp B/P B/P Pulse O2 O2 Flow FiO2 Mean Ox Delivery Rate 11/26 1709 99 Nasal 2.0L Cannula 11/26 1553 90 22 93/48 97 Nasal 2.0L Cannula 11/26 1450 97.0 73 22 101/47 97 Nasal 2.0L Cannula 11/26 1322 82 18 103/55 98 Room Air 11/26 1307 80 20 100/51 97 Nasal 2.0L Cannula 11/26 1300 99 Room Air 11/26 1244 97.0 118 20 80/38 99 Room Air Intake & Output 11/26 1600 11/26 0800 11/26 0000 11/25 1600 11/25 0800 11/25 0000 Intake Total Output Total Balance Patient 184 lb Weight Weight Reported by Patient Measurement Method Physical Exam: Pale appearing elderly male in no acute distress with nasal oxygen in place who is being transfused. HEENT: Normocephalic, atraumatic, EOMI, slightly dry mucous membranes. Neck: No JVD, no bruits. Lungs: Few bibasilar crackles. Heart: S1, S2 (both distant) with no murmur, gallop, or rub appreciated. PMI diffuse. Abdomen: Soft, nontender, positive bowel sounds. Extremities: Trace edema. Labs/Edilberto Results: Laboratory Tests 11/26 11/26 1800 1254 Chemistry Sodium (137 - 145 mmol/L) 136 L Potassium (3.5 - 5.1 mmol/L) 4.1 Chloride (98 - 107 mmol/L) 99 Carbon Dioxide (22 - 30 mmol/L) 27 Anion Gap (5 - 16) 10 BUN (9 - 20 mg/dL) 52 H Creatinine (0.7 - 1.2 mg/dL) 1.1 Estimated GFR (>60 ml/min) > 60 BUN/Creatinine Ratio (7 - 25 %) 47.3 H Glucose (65 - 99 mg/dL) 119 H Lactic Acid (0.7 - 2.1 mmol/L) Pending 2.7 H Calcium (8.4 - 10.2 mg/dL) 8.3 L Total Bilirubin (0.2 - 1.3 mg/dL) 0.3 AST (17 - 59 U/L) 17 ALT (21 - 72 U/L) 24 Alkaline Phosphatase (< 127 U/L) 88 Troponin I (<0.11 ng/ml) 0.04 Bea-[id number]-[id number] Pept (<125 pg/mL) 3000 H Total Protein (6.3 - 8.2 g/dL) 5.1 L Albumin (3.5 - 5.0 g/dL) 2.8 L Globulin (1.9 - 4.2 gm/dL) 2.3 Albumin/Globulin Ratio (1.1 - 2.2 %) 1.2 Coagulation PT (9.4 - 12.5 SEC) 14.4 H INR (0.90 - 1.17) 1.38 H APTT (25 - 37 SEC) 25 Hematology CBC w Diff Cancelled MAN DIFF ORDERED WBC (4.8 - 10.8 /CUMM) Cancelled 13.6 H RBC (4.70 - 6.10 /CUMM) Cancelled 1.40 L Hgb (14.0 - 18.0 G/DL) Cancelled 3.3 *L Hct (42 - 52 %) Cancelled 10.4 *L MCV (80.0 - 94.0 FL) Cancelled 74.6 L MCH (27.0 - 31.0 PG) Cancelled 23.4 L RDW (11.5 - 14.5 %) Cancelled 27.2 H Plt Count (130 - 400 /CUMM) Cancelled 214 MPV (7.4 - 10.4 FL) Cancelled 8.8 Gran % (42.2 - 75.2 %) 86.7 H Lymphocytes % (20.5 - 51.1 %) 7.3 L Monocytes % (1.7 - 9.3 %) 5.7 Eosinophils % (0 - 5 %) 0.3 Basophils % (0.0 - 2.0 %) 0 Absolute Granulocytes (1.4 - 6.5 /CUMM) 11.8 H Absolute Lymphocytes (1.2 - 3.4 /CUMM) 1.0 L Absolute Monocytes (0.10 - 0.60 /CUMM) 0.8 H Absolute Eosinophils (0.0 - 0.7 /CUMM) 0 Absolute Basophils (0.0 - 0.2 /CUMM) 0 Platelet Estimate (ADEQUATE) ADEQUATE Polychromasia 1+ Hypochromic-Microcytic 4+ Poikilocytosis 3+ Anisocytosis 3+ Microcytic Cells 2+ Ovalocytes 1+ [place] Cells 1+ Elliptocytes 1+ Schistocytes 2+ PUBS MCHC (33.0 - 37.0 G/DL) Cancelled 31.4 L Diagnostic Data EKG Results 11/26/2017: Sinus rhythm, indeterminate age anteroseptal wall myocardial infarction with T-wave abnormalities in diffuse leads, and borderline QT prolongation. Slightly more anterolateral T wave abnormalities when compared to previous tracing from 11/05/2017. CXR Results 11/26/2017: Reexamination again shows low lung volumes with bibasilar airspace disease similar to the chest x-ray of 11/04/2017. The pleural effusions are difficult to assess on this semierect portable radiograph. Deviation of the trachea to the right at the thoracic inlet is caused by the dilated thoracic aorta. Other Results Echocardiogram 11/04/2017: Normal size left ventricle. Mild concentric left ventricular hypertrophy. Segmental wall motion abnormalities as described above. Overall left ventricular systolic function appeared moderately hypokinetic with an estimated ejection fraction of 35%. Cannot exclude apical thrombus. Abnormal relaxation filling pattern of the left ventricle for age (stage 1 diastolic dysfunction). Normal right ventricular size and function. Normal right atrial size. Mild left atrial dilatation. Mild mitral regurgitation. Mild tricuspid regurgitation. Moderate pulmonary hypertension. Mild pulmonic regurgitation. Small pericardial effusion. Dilated inferior vena cava. Assessment/Plan Assessment/Plan [id number] w/ hx of pevious hyponatremia, long-standing tobacco use, hyponatremia, HTN, & HLD who was recently hospitalized here (10/31-11/05/2017) after presenting w/ new onset HFpEF and anemia for which he refused endoscopy/ colonoscopy and who after a benign initial hospital course became unstable w/ hypotensive on 11/04/2719 w/ ECG changes, positive troponins, and worsening LV function by repeat echocardiography who was stabilized and ultimately transferred to [facility] where he underwent urgent cardiac catheterization that revealed a high-grade (95%) proximal LAD stenosis for which he underwent PCI/HARPREET (Synergy) w/ gradual improvement in his overall status and who presented from [facility] today w/ c/o of weakness and the discovery of profound anemia 2/2 GI bleeding. Recommendations: * ICU admission, follow-up troponins, follow-up ECG in a.m. or with symptoms. * Continue antiplatelet therapy (ec ASA, Plavix) if okay with gastroenterology, given recent ACS & PCI/HARPREET. * Continue to follow-up H/H closely and transfuse packed cells as needed to maintain hemoglobin above 8.0 g/dl. * Check magnesium. * Given borderline hypotension, continue to hold diuretic, beta kortney, and JASKARAN inhibitor therapy for the short-term. * Follow-up on gastroenterology recommendations. * Mechanical DVT prophylaxis. Further recommendations will follow, Thank you. Consult Acknowledgment - Thank you for your consult request.
[2017-11-26 22:41] LABS: ABSOLUTE BASOPHIL COUNT 0 /CUMM (0.0-0.2); ABSOLUTE EOSINOPHIL COUNT 0 /CUMM (0.0-0.7); ABSOLUTE GRANULOCYTE CT 9.1 /CUMM (1.4-6.5); ABSOLUTE LYMPH COUNT 1.3 /CUMM (1.2-3.4); ABSOLUTE MONOCYTE COUNT 0.9 /CUMM (0.10-0.60); BASOPHIL % 0.4 % (0.0-2.0); EOSINOPHIL % 0.4 % (0-5); GRANULOCYTE % 80.3 % (42.2-75.2); MEAN CORPUSCULAR HGB 25.5 PG (27.0-31.0); MEAN CORPUSCULAR HGB CONC 31.4 G/DL (33.0-37.0); MEAN PLATELET VOLUME 8.5 FL (7.4-10.4); PLATELET COUNT 172 /CUMM (130-400); RBC DISTRIBUTION WIDTH 22.8 % (11.5-14.5); WHITE BLOOD CELL COUNT 11.4 /CUMM (4.8-10.8)
[2017-11-26 22:51] LABS: HEMATOCRIT 17.5 % (42-52); MEAN CORPUSCULAR VOLUME 81.2 FL (80.0-94.0); RED BLOOD CELL CT 2.15 /CUMM (4.70-6.10)
--- NOTE | 2017-11-27 07:38 | PN- Resident CRCU ---
Subjective HPI/CRCU Issues: Microcytic anemia, unknown etiology Acute blood loss Bilateral LE edema Leukocytosis Hyponatemia 24 Hour Events: Patient required 1U prbcs overnight. His hgb at the time was 5.5. He denies HUNT, blurry vision, palpatations, CP, abdomial pain, hematemesis or visible bloody stools. Objective Vital Signs & I&O Last 8 Hrs of Vitals and I&O: T: 97.2 BP:100-104/50-62 I:780 O:250 Exam General Appearance: well developed/nourished, no apparent distress, alert, awake , comfortable Head: atraumatic, normal appearance Ears, Nose, Throat: normal pharynx, normal ENT inspection, hearing grossly normal Neck: normal inspection, supple, full range of motion Respiratory: normal breath sounds, chest non-tender, no respiratory distress, lungs clear Cardiovascular: regular rate/rhythm Gastrointestinal: normal bowel sounds, soft, non-tender, no organomegaly Extremities: 2+ BLE pitting edema Current Medications: Current Medications Sig/Lacey Start time Last Medication Dose Route Stop Time Status Admin Albuterol Sulfate 3 ML TID 11/26 2200 AC 11/27 INH 0826 Aspirin 81 MG DAILY 11/26 1900 AC 11/26 PO 2053 Atorvastatin Calcium 80 MG 1700 11/27 1700 DC PO Atorvastatin Calcium 80 MG 1700 11/26 2200 AC 11/27 PO 0033 Clopidogrel Bisulfate 75 MG DAILY 11/27 1000 AC PO Furosemide 20 MG ONCE ONE 11/26 1715 DC IV 11/26 1716 Ipratropium [place] 2.5 ML TID 11/26 2200 AC 11/27 INH 0827 Ipratropium [place] 2.5 ML Q6P PRN 11/26 1700 AC INH Pantoprazole Sodium 80 MG Q10H 11/26 1930 AC 11/26 Dextrose/Water 100 ML IV 2055 Pantoprazole Sodium 0 .STK-MED ONE 11/26 1527 DC IV Pantoprazole Sodium 40 MG BID 11/26 1510 DC 11/26 IV 1525 Senna 187 MG AT BEDTIME PRN 11/26 1845 AC PO Sodium Chloride 250 ML BOLUS ONE 11/26 2230 DC 11/26 IV 11/26 2329 2232 Sodium Chloride 1 SPRAY TID PRN 11/26 1700 AC [place] Sodium Chloride 250 ML BOLUS ONE 11/26 1300 DC 11/26 IV 11/26 3189 4432 Impression/Plan Impression/Problem List Impression: Mr Merritt is pleasant 82 yo m with past medical history significant for hypertension, dyslipidemia and recent PCI who is brought in by ambulance from [facility] on 11/26/2017 after the patient was found to have a low H &H (hgb 3.2) with progressively worsening fatigue. He was admitted to the ICU for further management and monitoring Respiratory: Patient required 2LNC on admission but his O2 sats remains > 95% * Discontinue oxygen supplementation ID: Leukocytosis most likely reactive in the setting of severe anemia * Hold off antibiotics * Monitor white count CVS: Severe hypotension, bilateral LE edema with recent PCI s/p LAD occlusion At [facility] he underwent PCI with Synergy HARPREET after it was found that the patient has a 95% occlusion of LAD. His admission here was complicated with respiratory acidosis with septic shock requiring intubation. He was extubated after 2 days. * Cardiology recommendations appreciated * Continue leg elevation above heart * Strict I&O Hematology: Microcytic anemia most likely 2/2 acute blood loss Patient is scheduled to have a EGD today. Initially patient was reluctant to have a colonoscopy but patient has also agreed to have one done. It will have to be deffered to a later date because patient had not been bowel prepped. * Protonix IV BID * Serial H/H, Q6-8 hours. Maintain H/H >8 * Maintain 2 Large bore IVs at all times * Guiac all stools * GI recommendations appreciated Metabolic: History of Hyponatremia - stable * Monitor sodium Alimentary: No active issue Nephrology: No active issues Diet: NPO DVT PPX: Alps Code: Full Code Problem List: 1. Iron deficiency anemia 2. GI bleed 3. Hypotension Pain Ratin Tomorrow's Labs & Rationales: CBC, Bundle Plan DVT/Prophylaxis: mechanical
[2017-11-27 08:41] LABS: ABSOLUTE BASOPHIL COUNT 0 /CUMM (0.0-0.2); ABSOLUTE EOSINOPHIL COUNT 0 /CUMM (0.0-0.7); ABSOLUTE GRANULOCYTE CT 9.5 /CUMM (1.4-6.5); ABSOLUTE LYMPH COUNT 0.7 /CUMM (1.2-3.4); ABSOLUTE MONOCYTE COUNT 0.7 /CUMM (0.10-0.60); EOSINOPHIL % 0.4 % (0-5); MEAN CORPUSCULAR HGB CONC 32.8 G/DL (33.0-37.0); MEAN PLATELET VOLUME 8.4 FL (7.4-10.4)
[2017-11-27 09:00] LABS: BASOPHIL % 0 % (0.0-2.0); MEAN CORPUSCULAR HGB 27.1 PG (27.0-31.0); MEAN CORPUSCULAR VOLUME 82.7 FL (80.0-94.0); PLATELET COUNT 156 /CUMM (130-400); RBC DISTRIBUTION WIDTH 19.9 % (11.5-14.5)
[2017-11-27 09:31] LABS: HEMATOCRIT 24.6 % (42-52); RED BLOOD CELL CT 2.98 /CUMM (4.70-6.10)
[2017-11-27 09:44] LABS: GRANULOCYTE % 86.7 % (42.2-75.2)
--- NOTE | 2017-11-27 09:44 | PN- CRCU ---
Subjective HPI/Critical Care Issues: Doing ok GI eval and cardio eval noted BP runs low but stable Objective Current Medications: Current Medications Sig/Lacey Start time Last Medication Dose Route Stop Time Status Admin Albuterol Sulfate 3 ML TID 11/26 2200 AC 11/27 INH 0826 Aspirin 81 MG DAILY 11/26 1900 AC 11/26 PO 2053 Atorvastatin Calcium 80 MG 1700 11/27 1700 DC PO Atorvastatin Calcium 80 MG 1700 11/26 2200 AC 11/27 PO 0033 Clopidogrel Bisulfate 75 MG DAILY 11/27 1000 AC PO Furosemide 20 MG ONCE ONE 11/26 1715 DC IV 11/26 171 Ipratropium [place] 2.5 ML TID 11/26 2200 AC 11/27 INH 08 Ipratropium [place] 2.5 ML Q6P PRN 11/26 1700 AC INH Pantoprazole Sodium 80 MG Q10H 11/26 1930 AC 11/26 Dextrose/Water 100 ML IV 2054 Pantoprazole Sodium 0 .STK-MED ONE 11/26 1527 DC IV Pantoprazole Sodium 40 MG BID 11/26 1510 DC 11/26 IV 1525 Senna 187 MG AT BEDTIME PRN 11/26 1845 AC PO Sodium Chloride 250 ML BOLUS ONE 11/26 2230 DC 11/26 IV 11/26 2329 2232 Sodium Chloride 1 SPRAY TID PRN 11/26 1700 AC [place] Sodium Chloride 250 ML BOLUS ONE 11/26 1300 DC 11/26 IV 11/26 1359 1305 Laboratory Tests 11/27 11/26 0750 2209 Chemistry Sodium (137 - 145 mmol/L) Pending 136 L Potassium (3.5 - 5.1 mmol/L) Pending 4.1 Chloride (98 - 107 mmol/L) Pending 100 Carbon Dioxide (22 - 30 mmol/L) Pending 29 Anion Gap (5 - 16) Pending 7 BUN (9 - 20 mg/dL) Pending 48 H Creatinine (0.7 - 1.2 mg/dL) Pending 1.0 Estimated GFR (>60 ml/min) > 60 BUN/Creatinine Ratio (7 - 25 %) 48.0 H Glucose Pending Calcium Pending Phosphorus Pending Magnesium Pending Total Bilirubin Pending AST Pending ALT Pending Troponin I (<0.11 ng/ml) 0.05 Albumin Pending Hematology CBC w Diff Pending NO MAN DIFF REQ WBC (4.8 - 10.8 /CUMM) Pending 11.4 H RBC (4.70 - 6.10 /CUMM) Pending 2.15 L Hgb (14.0 - 18.0 G/DL) Pending 5.5 *L Hct (42 - 52 %) Pending 17.5 *L MCV (80.0 - 94.0 FL) Pending 81.2 MCH (27.0 - 31.0 PG) Pending 25.5 L RDW (11.5 - 14.5 %) Pending 22.8 H Plt Count (130 - 400 /CUMM) Pending 172 MPV (7.4 - 10.4 FL) Pending 8.5 Gran % (42.2 - 75.2 %) Pending 80.3 H Lymphocytes % (20.5 - 51.1 %) Pending 11.4 L Monocytes % (1.7 - 9.3 %) Pending 7.5 Eosinophils % (0 - 5 %) Pending 0.4 Basophils % (0.0 - 2.0 %) Pending 0.4 Absolute Granulocytes (1.4 - 6.5 /CUMM) Pending 9.1 H Absolute Lymphocytes (1.2 - 3.4 /CUMM) Pending 1.3 Absolute Monocytes (0.10 - 0.60 /CUMM) Pending 0.9 H Absolute Eosinophils (0.0 - 0.7 /CUMM) Pending 0 Absolute Basophils (0.0 - 0.2 /CUMM) Pending 0 PUBS MCHC (33.0 - 37.0 G/DL) Pending 31.4 L 11/26 11/26 1800 1254 Chemistry Sodium (137 - 145 mmol/L) 136 L Potassium (3.5 - 5.1 mmol/L) 4.1 Chloride (98 - 107 mmol/L) 99 Carbon Dioxide (22 - 30 mmol/L) 27 Anion Gap (5 - 16) 10 BUN (9 - 20 mg/dL) 52 H Creatinine (0.7 - 1.2 mg/dL) 1.1 Estimated GFR (>60 ml/min) > 60 BUN/Creatinine Ratio (7 - 25 %) 47.3 H Glucose (65 - 99 mg/dL) 119 H Lactic Acid (0.7 - 2.1 mmol/L) 0.8 2.7 H Calcium (8.4 - 10.2 mg/dL) 8.3 L Magnesium (1.6 - 2.3 mg/dL) 2.6 H Total Bilirubin (0.2 - 1.3 mg/dL) 0.3 AST (17 - 59 U/L) 17 ALT (21 - 72 U/L) 24 Alkaline Phosphatase (< 127 U/L) 88 Lactate Dehydrogenase (313 - 618 U/L) 427 Troponin I (<0.11 ng/ml) 0.04 Rbv-K-Rducpefzshh Pept (<125 pg/mL) 3000 H Total Protein (6.3 - 8.2 g/dL) 5.1 L Albumin (3.5 - 5.0 g/dL) 2.8 L Globulin (1.9 - 4.2 gm/dL) 2.3 Albumin/Globulin Ratio (1.1 - 2.2 %) 1.2 Coagulation PT (9.4 - 12.5 SEC) 14.4 H INR (0.90 - 1.17) 1.38 H APTT (25 - 37 SEC) 25 Hematology CBC w Diff Cancelled MAN DIFF ORDERED WBC (4.8 - 10.8 /CUMM) Cancelled 13.6 H RBC (4.70 - 6.10 /CUMM) Cancelled 1.40 L Hgb (14.0 - 18.0 G/DL) Cancelled 3.3 *L Hct (42 - 52 %) Cancelled 10.4 *L MCV (80.0 - 94.0 FL) Cancelled 74.6 L MCH (27.0 - 31.0 PG) Cancelled 23.4 L RDW (11.5 - 14.5 %) Cancelled 27.2 H Plt Count (130 - 400 /CUMM) Cancelled 214 MPV (7.4 - 10.4 FL) Cancelled 8.8 Gran % (42.2 - 75.2 %) 86.7 H Lymphocytes % (20.5 - 51.1 %) 7.3 L Monocytes % (1.7 - 9.3 %) 5.7 Eosinophils % (0 - 5 %) 0.3 Basophils % (0.0 - 2.0 %) 0 Absolute Granulocytes (1.4 - 6.5 /CUMM) 11.8 H Absolute Lymphocytes (1.2 - 3.4 /CUMM) 1.0 L Absolute Monocytes (0.10 - 0.60 /CUMM) 0.8 H Absolute Eosinophils (0.0 - 0.7 /CUMM) 0 Absolute Basophils (0.0 - 0.2 /CUMM) 0 Platelet Estimate (ADEQUATE) ADEQUATE Polychromasia 1+ Hypochromic-Microcytic 4+ Poikilocytosis 3+ Anisocytosis 3+ Microcytic Cells 2+ Ovalocytes 1+ [place] Cells 1+ Elliptocytes 1+ Schistocytes 2+ PUBS MCHC (33.0 - 37.0 G/DL) Cancelled 31.4 L Urines Urinalysis LIGHT H Urine Color (YEL,AMB,STR) YEL Urine Clarity (CLEAR) CLEAR Urine pH (5.0 - 8.0) 6.0 Ur Specific [place] (1.001 - 1.035) 1.020 Urine Protein (NEG,<30 MG/DL) NEG Urine Ketones (NEG) NEG Urine Nitrite (NEG) NEG Urine Bilirubin (NEG) NEG Urine Urobilinogen (0.1 - 1.0 EU/dl) 0.2 Ur Leukocyte Esterase (NEG) TRACE H Ur Microscopic SEDIMENT EXAMINED Urine WBC (0 - 2 /HPF) 3-5 H Ur Epithelial Cells (NONE,FEW) FEW Urine Bacteria (NEG/NONE) FEW H Hyaline Casts (0/LPF) RARE H Granular Casts (NONE /LPF) FEW H Urine Mucus (FEW,NONE) FEW Urine Hemoglobin (NEG) NEG Urine Glucose (N MG/DL) NEG Microbiology Date/Time Procedure - Status Source Growth 11/26 1630 Surveillance Culture - RECD UPPER RESP 11/26 1630 Surveillance Culture - RECD GI Vital Signs & I&O Last 24 Hrs of Vitals and I&O: Vital Signs Date Time Temp Pulse Resp B/P B/P Pulse O2 O2 Flow FiO2 Mean Ox Delivery Rate 11/27 0829 99 Nasal 2.0L Cannula 11/27 0800 96 Nasal 2.0L Cannula 11/27 0400 93 Nasal 2.0L Cannula 11/27 0000 96 Nasal 2.0L Cannula 11/26 2242 97 Nasal 2.0L Cannula 11/26 2000 95 Nasal 2.0L Cannula 11/26 1921 Nasal 2.0L Cannula 11/26 1709 99 Nasal 2.0L Cannula 11/26 1553 90 22 93/48 97 Nasal 2.0L Cannula 11/26 1450 97.0 73 22 101/47 97 Nasal 2.0L Cannula 11/26 1322 82 18 103/55 98 Room Air 11/26 1307 80 20 100/51 97 Nasal 2.0L Cannula 11/26 1300 99 Room Air 11/26 1244 97.0 118 20 80/38 99 Room Air Intake & Output 11/27 1600 11/27 0800 11/27 0000 Intake Total 780 970 Output Total 250 440 Balance 530 530 Intake, Blood 700 700 Product Intake, IV 80 270 Intake, Oral 0 Number 0 Bowel Movements Output, Urine 250 440 Patient 185 lb Weight Weight Bed scale Measurement Method Impression/Plan Impression/Plan Impression/Plan: Pt with sever cad with recent HARPREET LAD with cardiogenic shock with resp failure who was intubated for hypercarbia with shock, INitial ef was 20 percent and increased to 39 post nanny caregiver, and was intubated and extubated in 72 hrs Now here with Severe Symptomatic anemia - pt has had sig anemia before his stent ( hgb was 6 grams), rule out gi bleed and other nutritional causes, now being investigated for GI bleed REcent nanny caregiver to lad with shock and resp failure, stable Recent hypercarbic resp failure with pna and chf and effusions REC Cont prbc transusion if hemoglobin is less than 8 grams NEeds DAPT Cardio and gi following Watch bp Stool monitoring Watch for pulm edema Lasix prn cont statin Keep mag more than 2 and potassium more than 4 mechanical dvt prophylaxis Follow troponin Bowel regimen Pt continues desean be critically ill tts 36 mins
[2017-11-27 14:32] LABS: ABSOLUTE BASOPHIL COUNT 0 /CUMM (0.0-0.2); ABSOLUTE EOSINOPHIL COUNT 0 /CUMM (0.0-0.7); ABSOLUTE GRANULOCYTE CT 9.5 /CUMM (1.4-6.5); ABSOLUTE LYMPH COUNT 0.8 /CUMM (1.2-3.4); ABSOLUTE MONOCYTE COUNT 0.6 /CUMM (0.10-0.60); BASOPHIL % 0.1 % (0.0-2.0); EOSINOPHIL % 0.2 % (0-5); GRANULOCYTE % 87.1 % (42.2-75.2); HEMATOCRIT 23.5 % (42-52); MEAN CORPUSCULAR HGB 26.9 PG (27.0-31.0); MEAN CORPUSCULAR HGB CONC 33.1 G/DL (33.0-37.0); MEAN CORPUSCULAR VOLUME 81.1 FL (80.0-94.0); MEAN PLATELET VOLUME 8.3 FL (7.4-10.4); PLATELET COUNT 146 /CUMM (130-400); RBC DISTRIBUTION WIDTH 19.2 % (11.5-14.5); WHITE BLOOD CELL COUNT 10.9 /CUMM (4.8-10.8)
--- NOTE | 2017-11-27 16:16 | PN- Gastroenterology ---
Assessment/Plan Assessment/Recommendations: 82 y/o male, HTN, HLD, hx CHF, ASHD, post recent NSTEMI 11/05/17, requiring drug eluting cardiac stent at [facility] per Dr. Villarreal, at that time, on ASA & Plavix ( details of cardiac cath & coronary anatomy initially unavailable-> subsequently found to be 95% proximal LAD lesion, txd with Synergy stent, per my d/w Dr. Villarreal & Dr. Bolaños). The patient was seen by Dr. Candelario in GI consultation 02/14, after being admitted to [facility] 10/31/17 with complaints of worsening lower extremity edema, hypoNa, fatigue, & CHF exacerbation in the setting of new microcytic anemia. He got Lasix for the swelling with improvement, and then felt better. He was intermittently hypoxic & hypotensive then, requiring right IJ TLC. *At that time, he refused any endoscopic workup, despite being made aware of the risk of an occult GI malignancy. He reportedly was OB-negative then. He was transfused a total of 3 units PRBC that admission, for H/H 06/22 with MCV 63 & low ferritin. At that time, he denied any GERD, odynophagia, dysphagia, nausea, vomiting, early satiety, abdominal pain, hematemesis, melena, rectal bleeding, diarrhea, constipation, obstipation, tenesmus, change in stool caliber, weight loss, or change in appetite. He was not on any NSAIDS. He had a history of EVELIN & past hx alpha Strep bacteremia in 12/2016, due to L2-L3/L3-L4 osteomyelitis, txd with 6 weeks Ampicillin. *He had never had a baseline screening colonoscopy prior to the anemia, nor an EGD. He never followed up with Dr. Candelario as an outpatient. The patient had a normal troponin on 10/31/17, which bumped up to 12.7 & he was transferred to [facility] on 11/05/17 for subsequent drug-eluting cardiac stent later that day. He was txd with broad spectrum antibiotics at [facility] prior to his transfer (Vanco/Fortaz), switched to Ceftriaxone, although his hypotension, leukocytosis, tachypnea & tachycardia then were felt to be due to an acute DE, rather than sepsis. There was no definite infiltrate then, & his positive E. Coli UC was felt to be a contaminant, per ID. The patient was convalescing at [facility] and had labs there by his PMD, revealing severe anemia (H/H 3.2/10.3), prompting him to be sent in to the [facility] ER, where he arrived 11/26/17 at 12:43 p.m. Upon arrival, BP 80/38, P 118, R 20, T 97, O2 sat RA 99%. His BP improved to low normal after IVF & PRBC. At the time of my GI consult, he was in the midst of his 2nd unit PRBC & was adimitted to the ICU. *His GI ROS from above and below remained negative. He denied any melena, but his stools were intermittently dark on Fe. He denied any CP, but noted CONNELL & fatigue. He denied any SOB at rest, LOC, syncope, or palpitations. He denied any fevers, chills, acute back pain, sx of UTI, or URI. He denied any previous abdominal surgery. *He adamantly continued to refuse any invasive GI workup, although he was A & O x 3. He claimed that he made his own medical decisions, but that if he were incapacitated, 2 of his 3 children were POA (his son, Edu Merritt, & his dtr, Delia Dillon). *He had brown, OB+ stool on exam in the ER, per the PA, Gina Delcid. The patient recently D/C cigars. He denied any cigarettes, EtOH, or illicit drugs. He denied any FHx of GI disease, GI Ca, or inherited liver disease. There is no history of abdominal trauma or AAA. 12/05/16: IPEP/SPEP- without monoclonal gammopathy (c/w acute phase rx). 10/31/17: borderline elevated T4 11.9, nl TT3 1.05, nl TSH 1.26, Fe 13, TIBC 483 , *Fe sat 2%, *ferritin 12.3, B12 597, folate 8.8. 11/26/17: Admission labs- WBC 13.6 (87% gran/12 gran Ab), H/H 3.3/10.4, MCV 74.6 , RDW 27.2, PLT 214, PT 14.4, INR 1.38, PTT 25, glucose 119, BUN/Cr 52/1.1, GFR > 60, Na 136, K 4.1, HCO3 27, AG 10, lactate 2.7, Ca2+ 8.3, albumin 2.8, globulin 2.3, TBil 0.3, alk phos 88, AST 17, ALT 24, troponin 0.04, CK < 20, BNP 3000. 11/26/17: U/A- clear yellow, 1.020, 6.0, 3-5 WBC, rare hyaline cast, few granular cast, few bacteria, micro- otherwise negative; negative nitrite, trace esterase 11/04/17: CT ABD & PELVIS W/O IV CONTRAS; CT CHEST WO IV CONTRAST- Small right greater than trace left bilateral pleural effusions with associated airspace disease. Cholelithiasis without evidence of cholecystitis. Residual contrast material present within the collecting system. Sigmoid diverticulosis without evidence of diverticulitis. Moderate to large amount stool within the rectum. 11/04/17: ECHOCARDIOGRAM- Normal size left ventricle. Mild concentric left ventricular hypertrophy. Segmental wall motion abnormalities as described above. Overall left ventricular systolic function appeared moderately hypokinetic with an estimated ejection fraction of 35%. Cannot exclude apical thrombus. Abnormal relaxation filling pattern of the left ventricle for age (stage 1 diastolic dysfunction). Normal right ventricular size and function. Normal right atrial size. Mild left atrial dilatation. Mild mitral regurgitation. Mild tricuspid regurgitation. No . Moderate pulmonary hypertension. Mild pulmonic regurgitation. Small pericardial effusion. Dilated inferior vena cava. 11/26/17: EKG- NSR @ 75, borderline LAD, borderline prolonged QT interval, indeterminate age anteroseptal DE, occasional unifocal PVC (without significant change from EKG of 11/05/17). 11/26/17: XR PORTABLE CHEST- Low lung volumes. Continued bilateral lower lobe atelectasis. Deviation of the trachea to the right at the thoracic inlet is caused by the dilated thoracic aorta. *The patient clearly has iron deficiency anemia with OB positive stool. He recently had 11/05/17: NSTEMI & drug-eluting Synergy stent placed in proximal LAD then, which was 95% occluded. The patient is at very high risk for reocclusion and repeat DE if his antiplatelet agents are stopped at this point. This was discussed with the patient in detail. His elevated BUN/Cr ratio of 47:1 on admission was noted, favoring UGI etiology. Uncertain if UGI vs. LGI source ( benign vs. malignant). Recent CT was without retroperitoneal bleed or AAA. Doubt malabsorption. The patient had never had a baseline colonoscopy or EGD, as he repeatedly refused these, initially with Dr. Candelario on 11/02/17. He was still refusing these at the time of my 11/26/17: GI consult, as well. The patient is at higher risk for colonoscopy than EGD, a few weeks post NSTEMI. According to the medical housestaff, the patient then agreed to an EGD after I had left the ICU. I returned to the ICU this p.m. to speak with the patient at length again. The risks and benefits of EGD/colonoscopy were again discussed with the patient by myself in great detail. He is agreeable to EGD, but not to colonoscopy at present. He was told that even if the EGD shows some pathology, he should have a baseline outpatient colonoscopy in view of the severe Fe deficiency anemia. If the EGD is negative, I would advise an inpatient baseline colonoscopy, as the patient allows. If both EGD and colonoscopy are negative, an outpatient PillCam should be entertained. Ideally, I would like the patient to be adequately transfused preoperatively, to minimize any associated risk. The risks and benefits of EGD were discussed with the patient in detail & informed consent for this was obtained. 11/26/17: peak troponin .05 (3 sets neg) 11/27/17: glu 103, BUN/Cr 38/1.0, GFR > 60, Na 136, K 4.1, HCO3 31, AG 5, Mg 2.4 , Ca 8.0, albumin 2.6, TBil 0.9, AST 17, ALT 23 11/27/17: 1:42 p.m.- WBC 10.9, H/H 7.8/23.5 (after 4u PRBC), PLT 146 *As of 11/27/17, the patient remained hemodynamically stable and afebrile, in NSR in the ICU, with O2 sat 2L 98%. The patient had received a total of 5u PRBC to date, most recently at 3:49 p.m. on 11/27/17. He initially refused all GI endoscopic testing, then later agreed to EGD. Earlier on 11/27/17, he verbally agreed to colonoscopy as well, but it was too late to give him the bowel prep (potential aspiration at EGD), and so we will await the results of the EGD. The risks and benefits of eventual colonoscopy were discussed with the patient, and informed consent for colonoscopy was obtained from him, timing to be determined by clinical course. He remained on an IV Protonix drip. He remained on ASA 81 mg daily & Plavix. He had not yet had a bowel movement on 11/27/17, and denied any melena, rectal bleeding, or hematemesis. He denied any chest pain or shortness of breath. He denied any abdominal pain. He was NPO for EGD. ICU & cardiology notes appreciated. *SUGGEST- NPO. Slowly transfuse to Hgb > 8 (hx ASHD/NSTEMI). May need prophylactic Lasix with history of ASHD. Supplemental O2 as needed. Continue Protonix drip at 8 mg/ hr for now (no reported interaction with Plavix, as opposed to other PPI). Carefully continue Ecotrin 81 mg daily & Plavix for now. Maintain in ICU. DVT prophylaxis with mechanical ALPS. Cardiology follow-up. Serial troponins. No NSAIDS. *Consider celiac panel (i.e.- IgA, tTG Ab, DGP Ab). For EGD (perhaps with SB bx), later today on 11/27/17. If EGD negative, inpt colonoscopy as patient allows (he currently agrees). If EGD shows significant pathology, would still advise baseline outpt colonoscopy, in view of severe Fe deficiency anemia. If EGD/colonoscopy both negative, outpt PillCam as patient allows. Eventual Fe repletion. The above was previously discussed with the ICU medical housestaff, Dr. Bolaños, & Dr. Villarreal in detail. The patient had been given my office number. Further GI recommendations to follow, depending on clinical course & EGD results. 1/2 hour of ICU care was spent on the patient. Problem List: 1. Hypotension 2. Iron deficiency anemia 3. GI bleed 4. ASHD (arteriosclerotic heart disease) 5. CHF (congestive heart failure) Subjective Subjective: 11/26/17: peak troponin .05 (3 sets neg) 11/27/17: glu 103, BUN/Cr 38/1.0, GFR > 60, Na 136, K 4.1, HCO3 31, AG 5, Mg 2.4 , Ca 8.0, albumin 2.6, TBil 0.9, AST 17, ALT 23 11/27/17: 1:42 p.m.- WBC 10.9, H/H 7.8/23.5 (after 4u PRBC), PLT 146 *As of 11/27/17, the patient remained hemodynamically stable and afebrile, in NSR in the ICU, with O2 sat 2L 98%. The patient had received a total of 5u PRBC to date, most recently at 3:49 p.m. on 11/27/17. He initially refused all GI endoscopic testing, then later agreed to EGD. Earlier on 11/27/17, he verbally agreed to colonoscopy as well, but it was too late to give him the bowel prep (potential aspiration at EGD), and so we will await the results of the EGD. The risks and benefits of eventual colonoscopy were discussed with the patient, and informed consent for colonoscopy was obtained from him, timing to be determined by clinical course. He remained on an IV Protonix drip. He remained on ASA 81 mg daily & Plavix. He had not yet had a bowel movement on 11/27/17, and denied any melena, rectal bleeding, or hematemesis. He denied any chest pain or shortness of breath. He denied any abdominal pain. He was NPO for EGD. ICU & cardiology notes appreciated. Review of Systems: Full 14 point ROS otherwise noncontributory and as above. Review of Systems Constitutional: Denies: chills, diaphoresis, fever, malaise, weakness, unexplained weight loss. EENTM: Denies: blurred vision, double vision, visual changes, eye pain, eye drainage, eye tearing, icterus, ear discharge, ear pain, ear redness, hearing changes, nasal congestion, epistaxis, nasal pain, throat pain, throat swelling, mouth pain, tooth pain. Cardiovascular: Reports: peripheral edema. Denies: chest pain, edema, orthopena, palpitations, syncope. Respiratory: Reports: short of breath (CONNELL). Denies: cough, hemoptysis, orthopnea, sputum production, stridor, wheezing. GI: Denies: abdominal pain, bloating, constipation, diarrhea, distention, bowel incontinence, melena, nausea, bloody stool, changes in stool, vomiting, steatorrhea. Genitourinary: Denies: discharge, dysuria, frequency, hematuria, hesitation, nocturia, pain, urgency. Musculoskeletal: Denies: back pain, gout, joint pain, joint swelling, muscle pain, muscle stiffness, neck pain. Skin: Denies: cysts, change in skin color, change in hair/nails, dryness, erythema, jaundice, lesions, lymphangitis, lumps, moles, rash. Neurological/Psychological: Denies: anxiety, ataxia, cognitive dysfunction, confusion, depressed, dementia, emotional problems, headache, numbness, paresthesia, pre-existing deficit, petit mal seizures, tingling, tremors, tonic-clonic seizures, unable to move lower ext , unable to move upper ext, weakness. Hematologic/Endocrine: Denies: bruising, bleeding, polyuria, polydipsia. Immunologic/Allergic: Denies: splenectomy, HIV/AIDS, lymphadenopathy. All Other Systems: Reviewed and Negative Objective Vital Signs and I&Os Vital Signs Date Time Temp Pulse Resp B/P B/P Pulse O2 O2 Flow FiO2 Mean Ox Delivery Rate 11/27 1200 96 Nasal 2.0L Cannula 11/27 0829 99 Nasal 2.0L Cannula 11/27 0800 96 Nasal 2.0L Cannula 11/27 0400 93 Nasal 2.0L Cannula 11/27 0000 96 Nasal 2.0L Cannula 11/26 2242 97 Nasal 2.0L Cannula 11/26 2000 95 Nasal 2.0L Cannula 11/26 1921 Nasal 2.0L Cannula 11/26 1709 99 Nasal 2.0L Cannula Intake & Output 11/27 1600 11/27 0400 11/26 1600 11/26 0400 11/25 1600 11/25 0400 Intake Total 780 970 Output Total 250 440 Balance 530 530 Intake, Blood 700 700 Product Intake, IV 80 270 Intake, Oral 0 Number 0 Bowel Movements Output, Urine 250 440 Patient 185 lb 184 lb Weight Weight Bed scale Reported by Patient Measurement Method Physical Exam: Well-developed, slightly malnourished male, in no apparent distress, feeling stronger post transfusions. Sclera anicteric. Conjunctiva less pale. Oropharynx clear. No oral thrush. No aphthous ulcers. There is no adenopathy, thyromegaly, or JVD. Positive HJR. No peripheral stigmata of inflammatory bowel disease or chronic liver disease on exam. No spiders on the anterior chest wall. No gynecomastia. No CVA tenderness. Lungs: clear to A&P. No wheezing, rales, or rhonchi. Slight decreased BS at the bases B/L. Heart exam: regular rate rhythm, S1 and S2, with soft I/ systolic murmur. Abdominal exam: normal bowel sounds, soft belly, nontender, without guarding or rebound. No mass. No organomegaly. Negative Holt sign. No fluid shift. No pulsatile mass. No epigastric bruit. Digital rectal exam (11/26/17: per TELMA Lopez, in [facility])- brown stool, OB-positive. Extremities: without cyanosis or clubbing. 1-2+ pitting pedal edema B/L. No palpable cords. B/L ALPS. Mild DJD. No rash. No palmar erythema. No Dupuytren's contractures. Distal pulses 1+ bilaterally. DTRs 2+ bilaterally. Alert and oriented x 3. Left handed. Motor 5/5 B/L. No tremor. No asterixis. Current Medications: Current Medications Sig/Lacey Start time Last Medication Dose Route Stop Time Status Admin Albuterol Sulfate 3 ML TID 11/26 220 AC 11/27 INH 1331 Aspirin 81 MG DAILY 11/26 1900 AC 11/27 PO 1018 Atorvastatin Calcium 80 MG 1700 11/27 1700 DC PO Atorvastatin Calcium 80 MG 1700 11/26 2200 AC 11/27 PO 0033 Clopidogrel Bisulfate 75 MG DAILY 11/27 1000 AC 11/27 PO 1019 Furosemide 20 MG ONCE ONE 11/26 1715 DC IV 11/26 1716 Ipratropium [place] 2.5 ML TID 11/26 2200 AC 11/27 INH 1331 Ipratropium [place] 2.5 ML Q6P PRN 11/26 1700 AC INH Pantoprazole Sodium 80 MG Q10H 11/26 1930 AC 11/27 Dextrose/Water 100 ML IV 1019 Pantoprazole Sodium 40 MG BID 11/26 1510 DC 11/26 IV 1525 Senna 187 MG AT BEDTIME PRN 11/26 1845 AC PO Sodium Chloride 250 ML BOLUS ONE 11/26 2230 DC 11/26 IV 11/26 2329 2232 Sodium Chloride 1 SPRAY TID PRN 11/26 1700 AC [place] Results Pertinent Lab Results: Laboratory Tests 11/27 11/27 1342 0750 Chemistry Sodium (137 - 145 mmol/L) 136 L Potassium (3.5 - 5.1 mmol/L) 4.1 Chloride (98 - 107 mmol/L) 100 Carbon Dioxide (22 - 30 mmol/L) 31 H Anion Gap (5 - 16) 5 BUN (9 - 20 mg/dL) 38 H Creatinine (0.7 - 1.2 mg/dL) 1.0 Estimated GFR (>60 ml/min) > 60 Glucose (65 - 99 mg/dL) 103 H Calcium (8.4 - 10.2 mg/dL) 8.0 L Phosphorus (2.5 - 4.5 mg/dL) 3.8 Magnesium (1.6 - 2.3 mg/dL) 2.4 H Total Bilirubin (0.2 - 1.3 mg/dL) 0.9 AST (17 - 59 U/L) 17 ALT (21 - 72 U/L) 23 Albumin (3.5 - 5.0 g/dL) 2.6 L Hematology CBC w Diff NO MAN DIFF REQ NO MAN DIFF REQ WBC (4.8 - 10.8 /CUMM) 10.9 H 11.0 H RBC (4.70 - 6.10 /CUMM) 2.90 L 2.98 L Hgb (14.0 - 18.0 G/DL) 7.8 L 8.1 L Hct (42 - 52 %) 23.5 L 24.6 L MCV (80.0 - 94.0 FL) 81.1 82.7 MCH (27.0 - 31.0 PG) 26.9 L 27.1 RDW (11.5 - 14.5 %) 19.2 H 19.9 H Plt Count (130 - 400 /CUMM) 146 156 MPV (7.4 - 10.4 FL) 8.3 8.4 Gran % (42.2 - 75.2 %) 87.1 H 86.7 H Lymphocytes % (20.5 - 51.1 %) 7.1 L 6.3 L Monocytes % (1.7 - 9.3 %) 5.5 6.6 Eosinophils % (0 - 5 %) 0.2 0.4 Basophils % (0.0 - 2.0 %) 0.1 0 Absolute Granulocytes (1.4 - 6.5 /CUMM) 9.5 H 9.5 H Absolute Lymphocytes (1.2 - 3.4 /CUMM) 0.8 L 0.7 L Absolute Monocytes (0.10 - 0.60 /CUMM) 0.6 0.7 H Absolute Eosinophils (0.0 - 0.7 /CUMM) 0 0 Absolute Basophils (0.0 - 0.2 /CUMM) 0 0 PUBS MCHC (33.0 - 37.0 G/DL) 33.1 32.8 L 11/26 11/26 2209 1800 Chemistry Sodium (137 - 145 mmol/L) 136 L Potassium (3.5 - 5.1 mmol/L) 4.1 Chloride (98 - 107 mmol/L) 100 Carbon Dioxide (22 - 30 mmol/L) 29 Anion Gap (5 - 16) 7 BUN (9 - 20 mg/dL) 48 H Creatinine (0.7 - 1.2 mg/dL) 1.0 Estimated GFR (>60 ml/min) > 60 BUN/Creatinine Ratio (7 - 25 %) 48.0 H Lactic Acid (0.7 - 2.1 mmol/L) 0.8 Troponin I (<0.11 ng/ml) 0.05 Hematology CBC w Diff NO MAN DIFF REQ Cancelled WBC (4.8 - 10.8 /CUMM) 11.4 H Cancelled RBC (4.70 - 6.10 /CUMM) 2.15 L Cancelled Hgb (14.0 - 18.0 G/DL) 5.5 *L Cancelled Hct (42 - 52 %) 17.5 *L Cancelled MCV (80.0 - 94.0 FL) 81.2 Cancelled MCH (27.0 - 31.0 PG) 25.5 L Cancelled RDW (11.5 - 14.5 %) 22.8 H Cancelled Plt Count (130 - 400 /CUMM) 172 Cancelled MPV (7.4 - 10.4 FL) 8.5 Cancelled Gran % (42.2 - 75.2 %) 80.3 H Lymphocytes % (20.5 - 51.1 %) 11.4 L Monocytes % (1.7 - 9.3 %) 7.5 Eosinophils % (0 - 5 %) 0.4 Basophils % (0.0 - 2.0 %) 0.4 Absolute Granulocytes (1.4 - 6.5 /CUMM) 9.1 H Absolute Lymphocytes (1.2 - 3.4 /CUMM) 1.3 Absolute Monocytes (0.10 - 0.60 /CUMM) 0.9 H Absolute Eosinophils (0.0 - 0.7 /CUMM) 0 Absolute Basophils (0.0 - 0.2 /CUMM) 0 PUBS MCHC (33.0 - 37.0 G/DL) 31.4 L Cancelled Urines Urinalysis LIGHT H Urine Color (YEL,AMB,STR) YEL Urine Clarity (CLEAR) CLEAR Urine pH (5.0 - 8.0) 6.0 Ur Specific [place] (1.001 - 1.035) 1.020 Urine Protein (NEG,<30 MG/DL) NEG Urine Ketones (NEG) NEG Urine Nitrite (NEG) NEG Urine Bilirubin (NEG) NEG Urine Urobilinogen (0.1 - 1.0 EU/dl) 0.2 Ur Leukocyte Esterase (NEG) TRACE H Ur Microscopic SEDIMENT EXAMINED Urine WBC (0 - 2 /HPF) 3-5 H Ur Epithelial Cells (NONE,FEW) FEW Urine Bacteria (NEG/NONE) FEW H Hyaline Casts (0/LPF) RARE H Granular Casts (NONE /LPF) FEW H Urine Mucus (FEW,NONE) FEW Urine Hemoglobin (NEG) NEG Urine Glucose (N MG/DL) NEG 11/26 1254 Chemistry Sodium (137 - 145 mmol/L) 136 L Potassium (3.5 - 5.1 mmol/L) 4.1 Chloride (98 - 107 mmol/L) 99 Carbon Dioxide (22 - 30 mmol/L) 27 Anion Gap (5 - 16) 10 BUN (9 - 20 mg/dL) 52 H Creatinine (0.7 - 1.2 mg/dL) 1.1 Estimated GFR (>60 ml/min) > 60 BUN/Creatinine Ratio (7 - 25 %) 47.3 H Glucose (65 - 99 mg/dL) 119 H Lactic Acid (0.7 - 2.1 mmol/L) 2.7 H Calcium (8.4 - 10.2 mg/dL) 8.3 L Magnesium (1.6 - 2.3 mg/dL) 2.6 H Total Bilirubin (0.2 - 1.3 mg/dL) 0.3 AST (17 - 59 U/L) 17 ALT (21 - 72 U/L) 24 Alkaline Phosphatase (< 127 U/L) 88 Lactate Dehydrogenase (313 - 618 U/L) 427 Troponin I (<0.11 ng/ml) 0.04 [id number]-Usmekkwgmcu Pept (<125 pg/mL) 3000 H Total Protein (6.3 - 8.2 g/dL) 5.1 L Albumin (3.5 - 5.0 g/dL) 2.8 L Globulin (1.9 - 4.2 gm/dL) 2.3 Albumin/Globulin Ratio (1.1 - 2.2 %) 1.2 Coagulation PT (9.4 - 12.5 SEC) 14.4 H INR (0.90 - 1.17) 1.38 H APTT (25 - 37 SEC) 25 Hematology CBC w Diff MAN DIFF ORDERED WBC (4.8 - 10.8 /CUMM) 13.6 H RBC (4.70 - 6.10 /CUMM) 1.40 L Hgb (14.0 - 18.0 G/DL) 3.3 *L Hct (42 - 52 %) 10.4 *L MCV (80.0 - 94.0 FL) 74.6 L MCH (27.0 - 31.0 PG) 23.4 L RDW (11.5 - 14.5 %) 27.2 H Plt Count (130 - 400 /CUMM) 214 MPV (7.4 - 10.4 FL) 8.8 Gran % (42.2 - 75.2 %) 86.7 H Lymphocytes % (20.5 - 51.1 %) 7.3 L Monocytes % (1.7 - 9.3 %) 5.7 Eosinophils % (0 - 5 %) 0.3 Basophils % (0.0 - 2.0 %) 0 Absolute Granulocytes (1.4 - 6.5 /CUMM) 11.8 H Absolute Lymphocytes (1.2 - 3.4 /CUMM) 1.0 L Absolute Monocytes (0.10 - 0.60 /CUMM) 0.8 H Absolute Eosinophils (0.0 - 0.7 /CUMM) 0 Absolute Basophils (0.0 - 0.2 /CUMM) 0 Platelet Estimate (ADEQUATE) ADEQUATE Polychromasia 1+ Hypochromic-Microcytic 4+ Poikilocytosis 3+ Anisocytosis 3+ Microcytic Cells 2+ Ovalocytes 1+ Micheal Cells 1+ Elliptocytes 1+ Schistocytes 2+ PUBS MCHC (33.0 - 37.0 G/DL) 31.4 L Imaging/Other Studies: 11/04/17: CT ABD & PELVIS W/O IV CONTRAST; CT CHEST WO IV CONTRAST- Small right greater than trace left bilateral pleural effusions with associated airspace disease. Cholelithiasis without evidence of cholecystitis. Residual contrast material present within the collecting system. Sigmoid diverticulosis without evidence of diverticulitis. Moderate to large amount stool within the rectum. 11/04/17: ECHOCARDIOGRAM- Normal size left ventricle. Mild concentric left ventricular hypertrophy. Segmental wall motion abnormalities as described above. Overall left ventricular systolic function appeared moderately hypokinetic with an estimated ejection fraction of 35%. Cannot exclude apical thrombus. Abnormal relaxation filling pattern of the left ventricle for age (stage 1 diastolic dysfunction). Normal right ventricular size and function. Normal right atrial size. Mild left atrial dilatation. Mild mitral regurgitation. Mild tricuspid regurgitation. No . Moderate pulmonary hypertension. Mild pulmonic regurgitation. Small pericardial effusion. Dilated inferior vena cava. 11/26/17: EKG- NSR @ 75, borderline LAD, borderline prolonged QT interval, indeterminate age anteroseptal DE, occasional unifocal PVC (without significant change from EKG of 11/05/17). 11/26/17: XR PORTABLE CHEST- Low lung volumes. Continued bilateral lower lobe atelectasis. Deviation of the trachea to the right at the thoracic inlet is caused by the dilated thoracic aorta.
--- NOTE | 2017-11-27 16:18 | PN- Cardiology ---
Subjective Subjective: No specific complaints. Denies chest discomfort, palpitations, shortness of breath, etc. Being transfused 5th unit of PRBCs. Objective Vital Signs and I&Os Vital Signs Date Time Temp Pulse Resp B/P B/P Pulse O2 O2 Flow FiO2 Mean Ox Delivery Rate 11/27 1200 96 Nasal 2.0L Cannula 11/27 0829 99 Nasal 2.0L Cannula 11/27 0800 96 Nasal 2.0L Cannula 11/27 0400 93 Nasal 2.0L Cannula 11/27 0000 96 Nasal 2.0L Cannula 11/26 2242 97 Nasal 2.0L Cannula 11/26 2000 95 Nasal 2.0L Cannula 11/26 1921 Nasal 2.0L Cannula 11/26 1709 99 Nasal 2.0L Cannula Intake & Output 11/27 1600 11/27 0800 11/27 0000 11/26 1600 11/26 0800 11/26 0000 Intake Total 780 970 Output Total 250 440 Balance 530 530 Intake, Blood 700 700 Product Intake, IV 80 270 Intake, Oral 0 Number 0 Bowel Movements Output, Urine 250 440 Patient 185 lb 184 lb Weight Weight Bed scale Reported by Patient Measurement Method Physical Exam: Well-developed, well-nourished elderly male who appears pale and in no acute distress with stable oxygen place. The spine vital signs: See above. Neck: No JVD, no bruits. Lungs: Few bibasilar crackles. Heart: S1, S2 no murmur, gallop, or rub. Abdomen: Soft, nontender, positive bowel sounds. Extremities: Trace edema. Current Medications: Current Medications Sig/Lacey Start time Last Medication Dose Route Stop Time Status Admin Albuterol Sulfate 3 ML TID 11/26 2200 AC 11/27 INH 1331 Aspirin 81 MG DAILY 11/26 1900 AC 11/27 PO 1018 Atorvastatin Calcium 80 MG 1700 11/27 1700 DC PO Atorvastatin Calcium 80 MG 1700 11/26 2200 AC 11/27 PO 0033 Clopidogrel Bisulfate 75 MG DAILY 11/27 1000 AC 11/27 PO 1019 Furosemide 20 MG ONCE ONE 11/26 1715 DC IV 11/26 1716 Ipratropium [place] 2.5 ML TID 11/26 2200 AC 11/27 INH 1331 Ipratropium [place] 2.5 ML Q6P PRN 11/26 1700 AC INH Pantoprazole Sodium 80 MG Q10H 11/26 1930 AC 11/27 Dextrose/Water 100 ML IV 1019 Pantoprazole Sodium 40 MG BID 11/26 1510 DC 11/26 IV 1525 Senna 187 MG AT BEDTIME PRN 11/26 1845 AC PO Sodium Chloride 250 ML BOLUS ONE 11/26 2230 DC 11/26 IV 11/26 2329 2232 Sodium Chloride 1 SPRAY TID PRN 11/26 1700 AC [place] Results Last 48 Hrs of Labs/Mics: Laboratory Tests 11/27/17 1342: CBC w Diff NO MAN DIFF REQ, RBC 2.90 L, MCV 81.1, MCH 26.9 L, RDW 19.2 H, MPV 8.3, Gran % 87.1 H, Lymphocytes % 7.1 L, Monocytes % 5.5, Eosinophils % 0.2, Basophils % 0.1, Absolute Granulocytes 9.5 H, Absolute Lymphocytes 0.8 L, Absolute Monocytes 0.6, Absolute Eosinophils 0, Absolute Basophils 0, PUBS MCHC 33.1 11/27/17 0750: Anion Gap 5, Estimated GFR > 60, Glucose 103 H, Calcium 8.0 L, Phosphorus 3.8, Magnesium 2.4 H, Total Bilirubin 0.9, AST 17, ALT 23, Albumin 2.6 L, CBC w Diff NO MAN DIFF REQ, RBC 2.98 L, MCV 82.7, MCH 27.1, RDW 19.9 H, MPV 8.4, Gran % 86.7 H, Lymphocytes % 6.3 L, Monocytes % 6.6, Eosinophils % 0.4, Basophils % 0, Absolute Granulocytes 9.5 H, Absolute Lymphocytes 0.7 L, Absolute Monocytes 0.7 H, Absolute Eosinophils 0, Absolute Basophils 0, PUBS MCHC 32.8 L 11/26/17 2209: Anion Gap 7, Estimated GFR > 60, BUN/Creatinine Ratio 48.0 H, Troponin I 0.05, CBC w Diff NO MAN DIFF REQ, RBC 2.15 L, MCV 81.2, MCH 25.5 L, RDW 22.8 H, MPV 8.5, Gran % 80.3 H, Lymphocytes % 11.4 L, Monocytes % 7.5, Eosinophils % 0.4, Basophils % 0.4, Absolute Granulocytes 9.1 H, Absolute Lymphocytes 1.3, Absolute Monocytes 0.9 H, Absolute Eosinophils 0, Absolute Basophils 0, PUBS MCHC 31.4 L 11/26/17 1800: Lactic Acid 0.8, CBC w Diff Cancelled, WBC Cancelled, RBC Cancelled, Hgb Cancelled, Hct Cancelled, MCV Cancelled, MCH Cancelled, RDW Cancelled, Plt Count Cancelled, MPV Cancelled, PUBS MCHC Cancelled, Urinalysis LIGHT H, Urine Color YEL, Urine Clarity CLEAR, Urine pH 6.0, Ur Specific [place] 1.020, Urine Protein NEG, Urine Ketones NEG, Urine Nitrite NEG, Urine Bilirubin NEG, Urine Urobilinogen 0.2, Ur Leukocyte Esterase TRACE H, Ur Microscopic SEDIMENT EXAMINED, Urine WBC 3-5 H, Ur Epithelial Cells FEW, Urine Bacteria FEW H, Hyaline Casts RARE H, Granular Casts FEW H, Urine Mucus FEW, Urine Hemoglobin NEG, Urine Glucose NEG 11/26/17 1254: Anion Gap 10, Estimated GFR > 60, BUN/Creatinine Ratio 47.3 H, Glucose 119 H, Lactic Acid 2.7 H, Calcium 8.3 L, Magnesium 2.6 H, Total Bilirubin 0.3, AST 17, ALT 24, Alkaline Phosphatase 88, Lactate Dehydrogenase 427, Troponin I 0.04, [id number] Pept 3000 H, Total Protein 5.1 L, Albumin 2.8 L, Globulin 2.3, Albumin/Globulin Ratio 1.2, PT 14.4 H, INR 1.38 H, APTT 25, CBC w Diff MAN DIFF ORDERED, RBC 1.40 L, MCV 74.6 L, MCH 23.4 L, RDW 27.2 H, MPV 8.8, Gran % 86.7 H, Lymphocytes % 7.3 L, Monocytes % 5.7, Eosinophils % 0.3, Basophils % 0, Absolute Granulocytes 11.8 H, Absolute Lymphocytes 1.0 L, Absolute Monocytes 0.8 H, Absolute Eosinophils 0, Absolute Basophils 0, Platelet Estimate ADEQUATE, Polychromasia 1+, Hypochromic-Microcytic 4+, Poikilocytosis 3+, Anisocytosis 3+, Microcytic Cells 2+, Ovalocytes 1+, [place] Cells 1+, Elliptocytes 1+, Schistocytes 2+, PUBS MCHC 31.4 L Assessment/Plan Assessment/Plan [id number] w/ hx of pevious hyponatremia, long-standing tobacco use, hyponatremia, HTN, & HLD who was recently hospitalized here (10/31-11/05/2017) after presenting w/ new onset HFpEF and anemia for which he refused endoscopy/ colonoscopy and who after a benign initial hospital course became unstable w/ hypotensive on 11/04/2719 w/ ECG changes, positive troponins, and worsening LV function by repeat echocardiography who was stabilized and ultimately transferred to [facility] where he underwent urgent cardiac catheterization that revealed a high-grade (95%) proximal LAD stenosis for which he underwent PCI/HARPREET (Synergy) w/ gradual improvement in his overall status and who presented from [facility] on 11/26/2017 w/ c/o of weakness and the discovery of profound anemia 2 /2 GI bleeding. Hemodynamically stable, but blood pressure borderline low and patient receiving 50 units PRBCs. Recommendations: * Continue ICU admission. * Continue antiplatelet therapy (ec ASA, Plavix) if okay with gastroenterology, given recent ACS & PCI/HARPREET. * Continue to follow-up H/H closely and transfuse packed cells as needed to maintain hemoglobin above 8.0 g/dl. * Given borderline hypotension, continue to hold diuretic, beta kortney, and JASKARAN inhibitor therapy for the short-term. * Given poor LV function and volume from PRBCs recheck CXR and diuresis if necessary as blood pressure allows. * Follow-up on gastroenterology recommendations following endoscopy. * Mechanical DVT prophylaxis. Continue telemetry? Not applicable (In ICU.)
--- NOTE | 2017-11-27 18:59 | Proc Note Endoscopy ---
Endoscopy Procedure Medical History: unchanged Mental Status: alert/oriented Heart/Lung Eval Prior to Sedation: within normal limits Candidate for Sedation? Yes Procedure Date: 11/27/17 Procedure Type: EGD w/biopsy (& cytology brushings) Business Relations Manager: FELIPA TSANG MD ASA Classification: IV (IV-E) Indications: INDX: (*Please refer to detailed 11/26/17: GI consult) 82 y/o male, NSTEMI 11/05/17 with HARPREET LAD then-> ASA/Plavix. The patient had previously refused EGD/colonoscopy when initially seen in GI consultation by Dr. Candelario 11/02/17, at his previous admission. He was severely anemic then & tranfused. He was readmitted 11/26/17, with worsening H/H 3.3/10.4 & OB+ stool-> transfused. Antiplatelet agents were continued in view of recent HARPREET. The patient is on an IV Protonix drip. He had elevated BUN/Cr ratio on admission of 47:1. No previous EGD or colonoscopy. Instrument: diagnostic gastroscope Meds Received: MAC Patient's Tolerance: good Complications: none Extent Reached: gastric antrum Procedure: Baseline upper endoscopy to the gastric antrum, with biopsies & cytology brushings, was performed with the Olympus high definition videoendoscope, after obtaining informed consent from the patient, with the groundwater monitoring technician and pulse oximeter, with the assistance of Dr. Santizo, of [facility]. The patient's dentition was poor preoperatively. His false partials were removed preoperatively. A mouthpiece was placed in the usual fashion to protect the patient's residual teeth. The patient's throat was sprayed with lidocaine. The patient was placed in the left lateral decubitus position and sedated by [facility]. At this point, the endoscope was advanced from the mouth into the esophagus, using direct visualization technique. I did not get a good look at the vocal cords. The esophageal mucosa appeared normal. There were no esophageal rings, webs, lesions, strictures, or ulcers. There was no monilia or vesicles. There was no esophageal ribbing. The Z line was well demarcated at 40 cm. No definite hiatal hernia pouch was seen, but visualization was poor, due to retained food, especially in the proximal stomach. No significant esophageal inflammation was seen. There were no ectopic islands, nor gross Croft's esophagus. There were no esophageal varices. Once the endoscope was advanced from esophagus into the stomach, a significant amount of solid food was encountered in the upper stomach, making visibility almost impossible. At this point, a decision was made to remove the endoscope, for fear of potential aspiration. Dr. Santizo, of anesthesiology, then intubated the patient, and the endoscope was then reintroduced under direct visualization, after the airway was protected. The ET tube was seen passing into the trachea. Inspection of the proximal stomach was fairly impossible, due to the retained food. I was able to carefully retroflex, but most of the proximal gastric mucosa was obscured. It was fairly impossible to tell whether there were any gastric varices, Sonal- Mathis tear, portal gastropathy, etc. Gastric distention was somewhat limited, but this seemed to be more a result of a distal gastric lesion, rather than gastroparesis. The vast majority of the mucosa of the gastric cardia, fundus, lesser curvature, incisura, and body were obscured by retained food, despite the fact that the patient had essentially been NPO x 2 days. Upon reaching the gastric antrum, some of the retained food was cleared by a combination of aggressive suctioning and washing, using the [employer] apparatus. After clearing some of the food from the distal stomach, a 5 cm x 6 cm ulcerated, friable, irregular, necrotic antral lesion was seen. The antrum was distorted and seemed to be tethered towards the lesser curvature/incisura. No focal clot or visible vessel was seen. The pylorus was engulfed by the ulcerated antral mass, and was unable to be located. At this point, cytology brushings of the ulcerated antral lesion were obtained. This was followed by 7 biopsies of the ulcerated antral lesion: (Specimen A). Although the antral lesion was friable, no significant bleeding was noted post biopsies, keeping in mind the fact that the patient was on aspirin and Plavix, due to his recent HARPREET of LAD. The above findings seem to represent a mechanical gastric outlet obstruction. Rule out gastric Ca, rule out lymphoma, rule out severe peptic ulcer disease. I was unable to enter the duodenum, due to the altered anatomy. The patient tolerated the procedure well. He was extubated uneventfully by anesthesiology postoperatively.*Documenting photographs were obtained and placed inside the patient's chart. Impression: 1. 5 cm x 6 cm ulcerated, friable, irregular, necrotic antral lesion, tethered towards the lesser curvature/incisura, enveloping the pylorus, with mechanical gastric outlet obstruction. Cytology brushings, followed by 7 biopsies: ( Specimen A- rule out gastric Ca, rule out lymphoma, rule out severe peptic ulcer disease). Unable to locate pylorus or inspect duodenum. 2. Severely limited views of the proximal stomach, secondary to retained food. Recommendations: *Await gastric antral cytology brushings and biopsies. *NPO for now with aspiration precautions. *Consider CTE to reassess stomach (no gross gastric abnormalities seen on the : noncontrast CT CAP). *Once CTE done, careful trial of clears po. *Slowly transfuse to Hgb > 8 (hx ASHD/NSTEMI). May need prophylactic Lasix with history of ASHD. Supplemental O2 as needed. *Continue Protonix drip at 8 mg/hr for now ( no reported interaction with Plavix, as opposed to other PPI). Carefully continue Ecotrin 81 mg daily & Plavix for now. Maintain in ICU for now. DVT prophylaxis with mechanical ALPS. No NSAIDs. Based on the above findings, will defer colonoscopy and/or a celiac panel for now. Eventual Fe repletion. The above findings were discussed with the patient, his son/POA, Edu Merritt ), the medical ICU housestaff, Dr. Bolaños, & Dr. Nicolas postoperatively. The critical nature of the patient's illness and the severe limitations in workup and treatment were discussed, keeping in mind the recent 11/05/17: NSTEMI and HARPREET of LAD, as the patient is now committed to long- term aspirin and Plavix. Furthermore, he is not a good surgical candidate, and there may be nutritional issues, depending on the severity of the mechanical gastric outlet obstruction. I briefly discussed the option of a potential transfer to [facility] with the patient and his son, Edu, although I am not certain what they may do differently there. The patient's family will discuss this, and get back to his current physicians. The patien's son/POA, Edu Merritt, was given my office number. Further GI recommendations to follow, depending on clinical course and cytology/pathology results (which may take some time to come back). ADDENDUM: 12/02/2017- CYTOLOGY DIAGNOSIS GASTRIC ANTRAL MASS BRUSHING: *POORLY DIFFERENTIATED CARCINOMA, WITH EXTENSIVE AIR-DRYING ARTIFACT, AND FUNGAL STRUCTURES. SEE [id number] REPORT. A. 5 CM X 6 CM ULCERATED, FRIABLE, IRREGULAR, NECROTIC ANTRAL LESION, TETHERED TOWARDS THE LESSER CURVATURE/INCISURA, ENVELOPING THE PYLORUS, WITH MECHANICAL GASTRIC OUTLET OBSTRUCTION, CYTOLOGY BRUSINGS, BIOPSY 7: ULCERATED ANTRAL MASS, MULTIPLE BIOPSIES: *INVASIVE ADENOCARCINOMA AND NECROSIS, AND FUNGAL STRUCTURES. GIEMSA STAIN SHOW MULTIPLE BACTERIAL ORGANISMS, BUT NO HELICOBACTER PRESENT. Dictated by: Tiffanie Bird MD Cytology brushings & antral bxs were reviewed with Dr. Bird, of [facility] the afternoon of 12/02/17. Unfortunately, the ulcerated antral mass revealed invasive adenoCa, as suspected, HP-negative. 11/29/17: *CT ENTEROGRAPHY (ABDOMEN AND PELVIS) WITH IV/PO (VOLUMEN) CONTRAST- 1. Mildly distended stomach with mild symmetric thickening of the antral wall & pylorus, which is nonspecific for inflammatory or other etiologies. A discrete ulceration or focal mass is not seen. Small adjacent lymph nodes are seen measuring up to 1.3 cm in size. *These could potentially be evaluated with endoscopic ultrasound. Normal SB. Moderate stool in right colon and rectum. Cecum is in RUQ. AP not seen (intact by history). 2. Cholelithiasis, without manifestations of cholecystitis. No dilated ducts. Normal liver & pancreas. 3. Trace perihepatic ascites. 4. 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 5. Small bilateral pleural effusions with bibasilar atelectasis. Mild ground- glass opacities in the RML & lingula. I called the pt's son/POA, Edu Merritt, 12/02/17 at 3:16 p.m. at [phone], & spoke with both him & his , Sergei Merritt, about the gastric Ca. The patient was being D/C to [facility] this afternoon, 12/02/17. Prior to his D/C, I called the patient in room 176-1 & informed him of the gastric Ca. I then also called the hospitalist service & spoke with Dr. Garcia. Finally, I discussed the above with Dr. Bolaños & Dr. Vicente. *As per my discussion with Dr. Garcia, the medical housestaff set up an outpt oncology consult with Dr. Latif, which will be coordinated with [facility]. *I will defer to oncology as to whether they feel obtaining an EUS will supervisor policy change clerks. Once oncology decides on therapy ( ? CTX/RT), the patient will have to be cleared by cardiology, to see if he is an operative candidate. His Ecotrin 81 mg daily & Plavix were continued, in view of 11/05/17: NSTEMI & HARPREET to LAD. He was D/C on Protonix 40 mg po BID. No NSAIDs. Based on the above findings, will defer colonoscopy and/or a celiac panel for now. *FeSO4 325 mg po TID. The pt received a total of 5u PRBC this admission, last on 11/27/17. 12/01/17: BUN/Cr 5/0.8, GFR > 60. 12/02/17: WBC 7.7, H/H 8.8/ 28.3, PLT 155. *I also spoke to Karen at my office, to help make sure the pt was plugged in with outpt oncology input. *Further recommendations to follow, after oncology consultation. CC: Jose ERICKSON,Daniel Nunez; Maria Isabel ERICKSON,Shane SWon; Mami ERICKSON,Juan Miguel SWon; Bhavya ERICKSON,Felipa Schultz; Cherelle ERICKSON PHD,Brennan SWon; Jules ERICKSON,Miguelito Nunez
[2017-11-28] VITALS: BP 114/50
[2017-11-28 04:15] LABS: ABSOLUTE BASOPHIL COUNT 0 /CUMM (0.0-0.2); ABSOLUTE EOSINOPHIL COUNT 0 /CUMM (0.0-0.7); ABSOLUTE LYMPH COUNT 0.8 /CUMM (1.2-3.4); ABSOLUTE MONOCYTE COUNT 0.7 /CUMM (0.10-0.60); BASOPHIL % 0.1 % (0.0-2.0); EOSINOPHIL % 0.5 % (0-5); GRANULOCYTE % 81.9 % (42.2-75.2); HEMATOCRIT 25.5 % (42-52); MEAN CORPUSCULAR HGB 27.1 PG (27.0-31.0); MEAN CORPUSCULAR HGB CONC 32.8 G/DL (33.0-37.0); MEAN CORPUSCULAR VOLUME 82.6 FL (80.0-94.0); MEAN PLATELET VOLUME 8.4 FL (7.4-10.4); PLATELET COUNT 133 /CUMM (130-400); RBC DISTRIBUTION WIDTH 19.3 % (11.5-14.5); RED BLOOD CELL CT 3.09 /CUMM (4.70-6.10); WHITE BLOOD CELL COUNT 8.5 /CUMM (4.8-10.8)
--- NOTE | 2017-11-28 07:50 | PN- Resident CRCU ---
Subjective HPI/CRCU Issues: Microcytic anemia Gastric ulcerative mass Acute blood loss Bilateral LE edema Leukocytosis Hyponatemia 24 Hour Events: Patient had no acute events overnight Objective Vital Signs & I&O Last 8 Hrs of Vitals and I&O: Intake & Output 11/28 1600 Intake Total 836 Output Total 475 Balance 361 Intake, IV 36 Intake, Oral 800 Output, Urine 475 Exam General Appearance: well developed/nourished, no apparent distress, alert, awake , comfortable Head: atraumatic, normal appearance Ears, Nose, Throat: normal pharynx, normal ENT inspection, hearing grossly normal Neck: normal inspection, supple, full range of motion Respiratory: normal breath sounds, no respiratory distress, lungs clear Cardiovascular: regular rate/rhythm Gastrointestinal: normal bowel sounds, soft, non-tender Extremities: normal inspection, normal capillary refill, normal range of motion, 2+ BLE edema Current Medications: Current Medications Sig/Lacey Start time Last Medication Dose Route Stop Time Status Admin Albuterol Sulfate 3 ML TID 11/26 2200 AC 11/28 INH 0756 Aspirin 81 MG DAILY 11/26 1900 DC 11/27 PO 1018 Aspirin Buffered 81 MG DAILY 11/28 1003 AC 11/28 PO 1154 Atorvastatin Calcium 80 MG 1700 11/26 2200 AC 11/27 PO 2019 Clopidogrel Bisulfate 75 MG DAILY 11/27 1000 AC 11/28 PO 1017 Docusate Sodium 100 MG ONCE ONE 11/27 2145 DC 11/27 PO 11/27 2146 2157 Ferrous Sulfate 325 MG TID 11/28 1007 AC 11/28 PO 1154 Ipratropium [place] 2.5 ML TID 11/26 2200 AC 11/28 INH 0756 Ipratropium [place] 2.5 ML Q6P PRN 11/26 1700 AC INH Pantoprazole Sodium 40 MG BID 11/28 2200 AC IV Pantoprazole Sodium 80 MG Q10H 11/26 1930 DC 11/28 Dextrose/Water 100 ML IV 0531 Senna 187 MG AT BEDTIME PRN 11/26 1845 AC 11/27 PO 2157 Sodium Chloride 1 SPRAY TID PRN 11/26 1700 AC [place] Miscellaneous Findings: 11/27/17 Upper endoscopy Impression: 1. 5 cm x 6 cm ulcerated, friable, irregular, necrotic antral lesion, tethered towards the lesser curvature/incisura, enveloping the pylorus, with mechanical gastric outlet obstruction. Cytology brushings, followed by 7 biopsies: ( Specimen A- rule out gastric Ca, rule out lymphoma, rule out severe peptic ulcer disease). Unable to locate pylorus or inspect duodenum. 2. Severely limited views of the proximal stomach, secondary to retained food. Impression/Plan Impression/Problem List Impression: Mr Merritt is pleasant 82 yo m with past medical history significant for hypertension, dyslipidemia and recent PCI who is brought in by ambulance from [facility] on 11/26/2017 after the patient was found to have a low H &H (hgb 3.2) with progressively worsening fatigue. He was admitted to the ICU for further management and monitoring Respiratory: Patient required 2LNC on admission but his O2 sats remains > 95% * Discontinue oxygen supplementation ID: Leukocytosis most likely reactive in the setting of severe anemia * Hold off antibiotics * Monitor white count CVS: Severe hypotension, bilateral LE edema with recent PCI s/p LAD occlusion At [facility] he underwent PCI with Synergy HARPREET after it was found that the patient has a 95% occlusion of LAD. His admission here was complicated with respiratory acidosis with septic shock requiring intubation. He was extubated after 2 days. * Cardiology recommendations appreciated * Continue leg elevation above heart * Strict I&O * Daily weights * CXR to r/o fluid overload, give IV Lasix if needed * Continue DAPT given recent HARPREET Hematology: Microcytic anemia most likely 2/2 acute blood loss The patient had previously refused EGD/colonoscopy when initially seen by GI-Dr. Candelario 11/02/17, at his previous admission. Patient reports he has no previous EGD or colonoscopy. At the time he was severely anemic and tranfused. He was readmitted 11/26/17, with worsening H/H 3.3/10.4, BUN/Cr ratio 47:1, and guaiac positive stools. Antiplatelet agents were continued in view of recent HARPREET. After agreeing to a EGD, patient was initially reluctant to have a dual colonoscopy done but patient later agreed to it. Colonoscopy was deferred to a later date because patient had not been bowel prepped. On 11/28/17 he had an EGD with biopsies performed by GI-Dr. 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 * Protonix IV BID * Serial H/H, Q6-8 hours. Maintain H/H >8 * Maintain 2 Large bore IVs at all times * Guiac all stools * GI recommendations appreciated * CT ABD/Pelvis to r/o visceral mass * Start Ferrous TID Metabolic: History of Hyponatremia - stable * Monitor sodium Alimentary: No active issue Nephrology: No active issues Diet: NPO DVT PPX: Alps Code: Full Code Problem List: 1. Anemia 2. Bilateral lower extremity edema Pain Ratin Tomorrow's Labs & Rationales: CBC, BEP Plan DVT/Prophylaxis: mechanical
[2017-11-28 08:00] VITALS: BP 122/60
--- NOTE | 2017-11-28 08:08 | PN- Gastroenterology ---
See Addendum Assessment/Plan Assessment/Recommendations: 82 y/o male, HTN, HLD, hx CHF, ASHD, post recent NSTEMI 11/05/17, requiring drug eluting cardiac stent at [facility] per Dr. Villarreal, at that time, on ASA & Plavix ( details of cardiac cath & coronary anatomy initially unavailable-> subsequently found to be 95% proximal LAD lesion, txd with Synergy stent, per my d/w Dr. Villarreal & Dr. Bolaños). The patient was seen by Dr. Candelario in GI consultation 02/14, after being admitted to [facility] 10/31/17 with complaints of worsening lower extremity edema, hypoNa, fatigue, & CHF exacerbation in the setting of new microcytic anemia. He got Lasix for the swelling with improvement, and then felt better. He was intermittently hypoxic & hypotensive then, requiring right IJ TLC. *At that time, he refused any endoscopic workup, despite being made aware of the risk of an occult GI malignancy. He reportedly was OB-negative then. He was transfused a total of 3 units PRBC that admission, for H/H 06/22 with MCV 63 & low ferritin. At that time, he denied any GERD, odynophagia, dysphagia, nausea, vomiting, early satiety, abdominal pain, hematemesis, melena, rectal bleeding, diarrhea, constipation, obstipation, tenesmus, change in stool caliber, weight loss, or change in appetite. He was not on any NSAIDS. He had a history of EVELIN & past hx alpha Strep bacteremia in 12/2016, due to L2-L3/L3-L4 osteomyelitis, txd with 6 weeks Ampicillin. *He had never had a baseline screening colonoscopy prior to the anemia, nor an EGD. He never followed up with Dr. Candelario as an outpatient. The patient had a normal troponin on 10/31/17, which bumped up to 12.7 & he was transferred to [facility] on 11/05/17 for subsequent drug-eluting cardiac stent later that day. He was txd with broad spectrum antibiotics at [place] prior to his transfer (Vanco/Fortaz), switched to Ceftriaxone, although his hypotension, leukocytosis, tachypnea & tachycardia then were felt to be due to an acute IN, rather than sepsis. There was no definite infiltrate then, & his positive E. Coli UC was felt to be a contaminant, per ID. The patient was convalescing at [facility] and had labs there by his PMD, revealing severe anemia (H/H 3.2/10.3), prompting him to be sent in to the [place] ER, where he arrived 11/26/17 at 12:43 p.m. Upon arrival, BP 80/38, P 118, R 20, T 97, O2 sat RA 99%. His BP improved to low normal after IVF & PRBC. At the time of my GI consult, he was in the midst of his 2nd unit PRBC & was adimitted to the ICU. *His GI ROS from above and below remained negative. He denied any melena, but his stools were intermittently dark on Fe. He denied any CP, but noted CONNELL & fatigue. He denied any SOB at rest, LOC, syncope, or palpitations. He denied any fevers, chills, acute back pain, sx of UTI, or URI. He denied any previous abdominal surgery. *He adamantly continued to refuse any invasive GI workup, although he was A & O x 3. He claimed that he made his own medical decisions, but that if he were incapacitated, 2 of his 3 children were POA (his son, Edu Merritt, & his dtr, Delia Dillon). *He had brown, OB+ stool on exam in the ER, per the PA, Gina Delcid. The patient recently D/C cigars. He denied any cigarettes, EtOH, or illicit drugs. He denied any FHx of GI disease, GI Ca, or inherited liver disease. There is no history of abdominal trauma or AAA. 12/05/16: IPEP/SPEP- without monoclonal gammopathy (c/w acute phase rx). 10/31/17: borderline elevated T4 11.9, nl TT3 1.05, nl TSH 1.26, Fe 13, TIBC 483 , *Fe sat 2%, *ferritin 12.3, B12 597, folate 8.8. 11/26/17: Admission labs- WBC 13.6 (87% gran/12 gran Ab), H/H 3.3/10.4, MCV 74.6 , RDW 27.2, PLT 214, PT 14.4, INR 1.38, PTT 25, glucose 119, BUN/Cr 52/1.1, GFR > 60, Na 136, K 4.1, HCO3 27, AG 10, lactate 2.7, Ca2+ 8.3, albumin 2.8, globulin 2.3, TBil 0.3, alk phos 88, AST 17, ALT 24, troponin 0.04, CK < 20, BNP 3000. 11/26/17: Fe 29, TIBC 319, Fe sat 9.1%, ferritin 22.5. 11/26/17: U/A- clear yellow, 1.020, 6.0, 3-5 WBC, rare hyaline cast, few granular cast, few bacteria, micro- otherwise negative; negative nitrite, trace esterase 11/04/17: CT ABD & PELVIS W/O IV CONTRAS; CT CHEST WO IV CONTRAST- Small right greater than trace left bilateral pleural effusions with associated airspace disease. Cholelithiasis without evidence of cholecystitis. Residual contrast material present within the collecting system. Sigmoid diverticulosis without evidence of diverticulitis. Moderate to large amount stool within the rectum. 11/04/17: ECHOCARDIOGRAM- Normal size left ventricle. Mild concentric left ventricular hypertrophy. Segmental wall motion abnormalities as described above. Overall left ventricular systolic function appeared moderately hypokinetic with an estimated ejection fraction of 35%. Cannot exclude apical thrombus. Abnormal relaxation filling pattern of the left ventricle for age (stage 1 diastolic dysfunction). Normal right ventricular size and function. Normal right atrial size. Mild left atrial dilatation. Mild mitral regurgitation. Mild tricuspid regurgitation. No . Moderate pulmonary hypertension. Mild pulmonic regurgitation. Small pericardial effusion. Dilated inferior vena cava. 11/26/17: EKG- NSR @ 75, borderline LAD, borderline prolonged QT interval, indeterminate age anteroseptal IN, occasional unifocal PVC (without significant change from EKG of 11/05/17). 11/26/17: XR PORTABLE CHEST- Low lung volumes. Continued bilateral lower lobe atelectasis. Deviation of the trachea to the right at the thoracic inlet is caused by the dilated thoracic aorta. *The patient clearly has iron deficiency anemia with OB positive stool. He recently had 11/05/17: NSTEMI & drug-eluting Synergy stent placed in proximal LAD then, which was 95% occluded. The patient is at very high risk for reocclusion and repeat IN if his antiplatelet agents are stopped at this point. This was discussed with the patient in detail. His elevated BUN/Cr ratio of 47:1 on admission was noted, favoring UGI etiology. Uncertain if UGI vs. LGI source ( benign vs. malignant). Recent CT was without retroperitoneal bleed or AAA. Doubt malabsorption. The patient had never had a baseline colonoscopy or EGD, as he repeatedly refused these, initially with Dr. Candelario on 11/02/17. He was still refusing these at the time of my 11/26/17: GI consult, as well. The patient is at higher risk for colonoscopy than EGD, a few weeks post NSTEMI. According to the medical housestaff, the patient then agreed to an EGD after I had left the ICU. I returned to the ICU this p.m. to speak with the patient at length again. The risks and benefits of EGD/colonoscopy were again discussed with the patient by myself in great detail. He is agreeable to EGD, but not to colonoscopy at present. He was told that even if the EGD shows some pathology, he should have a baseline outpatient colonoscopy in view of the severe Fe deficiency anemia. If the EGD is negative, I would advise an inpatient baseline colonoscopy, as the patient allows. If both EGD and colonoscopy are negative, an outpatient PillCam should be entertained. Ideally, I would like the patient to be adequately transfused preoperatively, to minimize any associated risk. The risks and benefits of EGD were discussed with the patient in detail & informed consent for this was obtained. 11/26/17: peak troponin .05 (3 sets neg) 11/27/17: glu 103, BUN/Cr 38/1.0, GFR > 60, Na 136, K 4.1, HCO3 31, AG 5, Mg 2.4 , Ca 8.0, albumin 2.6, TBil 0.9, AST 17, ALT 23 11/27/17: 1:42 p.m.- WBC 10.9, H/H 7.8/23.5 (after 4u PRBC), PLT 146 *As of 11/27/17, the patient remained hemodynamically stable and afebrile, in NSR in the ICU, with O2 sat 2L 98%. The patient had received a total of 5u PRBC to date, most recently at 3:49 p.m. on 11/27/17. He initially refused all GI endoscopic testing, then later agreed to EGD. Earlier on 11/27/17, he verbally agreed to colonoscopy as well, but it was too late to give him the bowel prep (potential aspiration at EGD), and so we will await the results of the EGD. The risks and benefits of eventual colonoscopy were discussed with the patient, and informed consent for colonoscopy was obtained from him, timing to be determined by clinical course. He remained on an IV Protonix drip. He remained on ASA 81 mg daily & Plavix. He had not yet had a bowel movement on 11/27/17, and denied any melena, rectal bleeding, or hematemesis. He denied any chest pain or shortness of breath. He denied any abdominal pain. He was NPO for EGD. ICU & cardiology notes appreciated. 11/27/17: *EGD WITH BIOPSY (& CYTOLOGY BRUSHINGS)- Impression: 1. 5 cm x 6 cm ulcerated, friable, irregular, necrotic antral lesion, tethered towards the lesser curvature/incisura, enveloping the pylorus, with mechanical gastric outlet obstruction. Cytology brushings, followed by 7 biopsies: ( Specimen A- rule out gastric Ca, rule out lymphoma, rule out severe peptic ulcer disease). Unable to locate pylorus or inspect duodenum. 2. Severely limited views of the proximal stomach, secondary to retained food. 11/28/17: WBC 8.5, H/H 8.4/25.5, PLT 133, glu 97, BUN/Cr 23/0.9, GFR > 60, Na 137, K 3.8, HCO3 32, AG 5, Mg 2.3, PO4 3.5, Ca 7.9, albumin 2.3, TBil 0.6, AST 16, ALT 24. *As of 11/28/17, the patient has received a total of 5u PRBC to date this admission. Hgb was stabilizing & BUN dropped. He remained on ASA 81 mg daily & Plavix, post 11/05/17: HARPREET of LAD. He remained on a Protonix drip & was NPO, awaiting CTE. His BP was now in the normal range. He was not tachycardic. He remained afebrile , with O2 sat 2L- 95%. He denied any hematemesis, nausea, vomiting, early satiety, melena, rectal bleeding, abdominal pain, CP, or SOB. He was hungry. *SUGGEST: *Await 11/27/17: gastric antral cytology brushings and biopsies. *NPO for now with aspiration precautions. *For CTE later today (no gross gastric abnormalities seen on the 11/04/17: noncontrast CT CAP). *Once CTE done, careful trial of clears po, with aspiration precautions. *Slowly transfuse to Hgb > 8 ( hx ASHD/NSTEMI). May need prophylactic Lasix with history of ASHD. Supplemental O2 as needed. *Can switch Protonix drip to Protonix 40 mg IV Q12h (no reported interaction with Plavix, as opposed to other PPI). Carefully continue Ecotrin 81 mg daily & Plavix for now, in view of 11/05/17: HARPREET to LAD. If stable, consider transfer out of ICU within next 24 hrs , if okay with Dr. Nicolas. DVT prophylaxis with mechanical ALPS. No NSAIDs. Based on the above findings, will defer colonoscopy, PillCam, and/or a celiac panel for now. Start FeSO4 repletion 325 mg po TID. Continue Colace & Senna. * Nutrition consult for supplements. The above findings were again discussed with the patient, & previously with his son/POA, Edu Merritt ([phone]), the medical ICU housestaff, Dr. Bolaños, & Dr. Nicolas postoperatively. The critical nature of the patient's illness and the severe limitations in workup and treatment were discussed, keeping in mind the recent 11/05/17: NSTEMI and HARPREET of LAD, as the patient is now committed to long-term aspirin and Plavix. Furthermore, he is not a good surgical candidate, and there may be nutritional issues, depending on the severity of the mechanical gastric outlet obstruction. I briefly discussed the option of a potential transfer to [facility] with the patient and his son, Edu, on 11/27/17, although I am not certain what they may do differently there. The patient's family will discuss this, and get back to his current physicians. The patien's son/POA, Edu Merritt, was given my office number. *Further GI recommendations to follow, depending on clinical course and cytology/pathology results (which may take some time to come back). 1/2 hour of ICU care was spent on the patient. Problem List: 1. Iron deficiency anemia 2. GI bleed 3. Hypotension 4. Malnutrition 5. ASHD (arteriosclerotic heart disease) 6. CHF (congestive heart failure) Subjective Subjective: 11/27/17: *EGD WITH BIOPSY (& CYTOLOGY BRUSHINGS)- Impression: 1. 5 cm x 6 cm ulcerated, friable, irregular, necrotic antral lesion, tethered towards the lesser curvature/incisura, enveloping the pylorus, with mechanical gastric outlet obstruction. Cytology brushings, followed by 7 biopsies: ( Specimen A- rule out gastric Ca, rule out lymphoma, rule out severe peptic ulcer disease). Unable to locate pylorus or inspect duodenum. 2. Severely limited views of the proximal stomach, secondary to retained food. 11/28/17: WBC 8.5, H/H 8.4/25.5, PLT 133, glu 97, BUN/Cr 23/0.9, GFR > 60, Na 137, K 3.8, HCO3 32, AG 5, Mg 2.3, PO4 3.5, Ca 7.9, albumin 2.3, TBil 0.6, AST 16, ALT 24. *As of 11/28/17, the patient has received a total of 5u PRBC to date this admission. Hgb was stabilizing & BUN dropped. He remained on ASA 81 mg daily & Plavix, post 11/05/17: HARPREET of LAD. He remained on a Protonix drip & was NPO, awaiting CTE. His BP was now in the normal range. He was not tachycardic. He remained afebrile , with O2 sat 2L- 95%. He denied any hematemesis, nausea, vomiting, early satiety, melena, rectal bleeding, abdominal pain, CP, or SOB. He was hungry. Review of Systems: Full 14 point ROS otherwise noncontributory and as above. Review of Systems Constitutional: Denies: chills, diaphoresis, fever, malaise, weakness, unexplained weight loss. EENTM: Denies: blurred vision, double vision, visual changes, eye pain, eye drainage, eye tearing, icterus, ear discharge, ear pain, ear redness, hearing changes, nasal congestion, epistaxis, nasal pain, throat pain, throat swelling, mouth pain, tooth pain. Cardiovascular: Reports: peripheral edema. Denies: chest pain, edema, orthopena, palpitations, syncope. Respiratory: Reports: short of breath (CONNELL)- improving. Denies: cough, hemoptysis, orthopnea, sputum production, stridor, wheezing. GI: Denies: abdominal pain, bloating, constipation, diarrhea, distention, bowel incontinence, melena, nausea, bloody stool, changes in stool, vomiting, steatorrhea. Genitourinary: Denies: discharge, dysuria, frequency, hematuria, hesitation, nocturia, pain, urgency. Musculoskeletal: Denies: back pain, gout, joint pain, joint swelling, muscle pain, muscle stiffness, neck pain. Skin: Denies: cysts, change in skin color, change in hair/nails, dryness, erythema, jaundice, lesions, lymphangitis, lumps, moles, rash. Neurological/Psychological: Denies: anxiety, ataxia, cognitive dysfunction, confusion, depressed, dementia, emotional problems, headache, numbness, paresthesia, pre-existing deficit, petit mal seizures, tingling, tremors, tonic-clonic seizures, unable to move lower ext , unable to move upper ext, weakness. Hematologic/Endocrine: Denies: bruising, bleeding, polyuria, polydipsia. Immunologic/Allergic: Denies: splenectomy, HIV/AIDS, lymphadenopathy. All Other Systems: Reviewed and Negative Objective Vital Signs and I&Os Vital Signs Date Time Temp Pulse Resp B/P B/P Pulse O2 O2 Flow FiO2 Mean Ox Delivery Rate 11/28 040 95 Nasal 2.0L Cannula 11/28 0000 97 Nasal 2.0L Cannula 11/28 0000 97.2 76 29 114/50 95 Nasal 2.0L Cannula 11/27 2133 100 Nasal 2.0L Cannula 11/27 2000 95 Nasal 2.0L Cannula 11/27 1600 98 Nasal 2.0L Cannula 11/27 1200 96 Nasal 2.0L Cannula 11/27 0829 99 Nasal 2.0L Cannula Intake & Output 11/28 1600 11/28 0400 11/27 1600 11/27 0400 11/26 1600 11/26 040 Intake Total 80 670 920 970 Output Total 500 0 700 440 Balance -420 670 220 530 Intake, Blood 350 700 700 Product Intake, IV 80 80 160 270 Intake, Oral 0 240 60 0 Number 0 0 0 0 Bowel Movements Output, Urine 500 0 700 440 Patient 185 lb 184 lb Weight Weight Bed scale Reported by Patient Measurement Method Physical Exam: Well-developed, slightly malnourished male, in no apparent distress, feeling stronger post transfusions. Sclera anicteric. Conjunctiva less pale. Oropharynx clear. No oral thrush. No aphthous ulcers. Poor dentition. There is no adenopathy, thyromegaly, or JVD. Scant HJR. No peripheral stigmata of inflammatory bowel disease or chronic liver disease on exam. No spiders on the anterior chest wall. No gynecomastia. No CVA tenderness. Lungs: clear to A&P. No wheezing, rales, or rhonchi. Slight decreased BS at the bases B/L. Heart exam: regular rate rhythm, S1 and S2, with soft I/ systolic murmur. Abdominal exam: normal bowel sounds, soft belly, nontender, without guarding or rebound. No mass. No organomegaly. Negative Holt sign. No fluid shift. No pulsatile mass. No epigastric bruit. Digital rectal exam (11/26/17: per TELMA Lopez, in [facility])- brown stool, OB-positive. Extremities: without cyanosis or clubbing. 1-2+ pitting pedal edema B/L. No palpable cords. B/L ALPS. Mild DJD. No rash. No palmar erythema. No Dupuytren's contractures. Distal pulses 1+ bilaterally. DTRs 2+ bilaterally. Alert and oriented x 3. Left handed. Motor 5/5 B/L. No tremor. No asterixis. Current Medications: Current Medications Sig/Lacey Start time Last Medication Dose Route Stop Time Status Admin Albuterol Sulfate 3 ML TID 11/26 2200 AC 11/28 INH 0756 Aspirin 81 MG DAILY 11/26 1900 AC 11/27 PO 1018 Atorvastatin Calcium 80 MG 1700 11/26 2200 AC 11/27 PO 2019 Clopidogrel Bisulfate 75 MG DAILY 11/27 1000 AC 11/27 PO 1019 Docusate Sodium 100 MG ONCE ONE 11/27 2145 DC 11/27 PO 11/27 Ipratropium [place]yer 2.5 ML TID 11/26 2200 AC 11/28 INH 0756 Ipratropium [place] 2.5 ML Q6P PRN 11/26 1700 AC INH Pantoprazole Sodium 80 MG Q10H 11/26 1930 AC 11/28 Dextrose/Water 100 ML IV 0531 Senna 187 MG AT BEDTIME PRN 11/26 1845 AC 11/27 PO 2157 Sodium Chloride 1 SPRAY TID PRN 11/26 1700 AC [place] Results Pertinent Lab Results: Laboratory Tests 11/28 11/27 0338 1342 Chemistry Sodium (137 - 145 mmol/L) 137 Potassium (3.5 - 5.1 mmol/L) 3.8 Chloride (98 - 107 mmol/L) 101 Carbon Dioxide (22 - 30 mmol/L) 32 H Anion Gap (5 - 16) 5 BUN (9 - 20 mg/dL) 23 H Creatinine (0.7 - 1.2 mg/dL) 0.9 Estimated GFR (>60 ml/min) > 60 Glucose (65 - 99 mg/dL) 97 Calcium (8.4 - 10.2 mg/dL) 7.9 L Phosphorus (2.5 - 4.5 mg/dL) 3.5 Magnesium (1.6 - 2.3 mg/dL) 2.3 Total Bilirubin (0.2 - 1.3 mg/dL) 0.6 AST (17 - 59 U/L) 16 L ALT (21 - 72 U/L) 24 Albumin (3.5 - 5.0 g/dL) 2.3 L Hematology CBC w Diff NO MAN DIFF REQ NO MAN DIFF REQ WBC (4.8 - 10.8 /CUMM) 8.5 10.9 H RBC (4.70 - 6.10 /CUMM) 3.09 L 2.90 L Hgb (14.0 - 18.0 G/DL) 8.4 L 7.8 L Hct (42 - 52 %) 25.5 L 23.5 L MCV (80.0 - 94.0 FL) 82.6 81.1 MCH (27.0 - 31.0 PG) 27.1 26.9 L RDW (11.5 - 14.5 %) 19.3 H 19.2 H Plt Count (130 - 400 /CUMM) 133 146 MPV (7.4 - 10.4 FL) 8.4 8.3 Gran % (42.2 - 75.2 %) 81.9 H 87.1 H Lymphocytes % (20.5 - 51.1 %) 9.8 L 7.1 L Monocytes % (1.7 - 9.3 %) 7.7 5.5 Eosinophils % (0 - 5 %) 0.5 0.2 Basophils % (0.0 - 2.0 %) 0.1 0.1 Absolute Granulocytes (1.4 - 6.5 /CUMM) 7.0 H 9.5 H Absolute Lymphocytes (1.2 - 3.4 /CUMM) 0.8 L 0.8 L Absolute Monocytes (0.10 - 0.60 /CUMM) 0.7 H 0.6 Absolute Eosinophils (0.0 - 0.7 /CUMM) 0 0 Absolute Basophils (0.0 - 0.2 /CUMM) 0 0 PUBS MCHC (33.0 - 37.0 G/DL) 32.8 L 33.1 11/27 11/26 0750 2209 Chemistry Sodium (137 - 145 mmol/L) 136 L 136 L Potassium (3.5 - 5.1 mmol/L) 4.1 4.1 Chloride (98 - 107 mmol/L) 100 100 Carbon Dioxide (22 - 30 mmol/L) 31 H 29 Anion Gap (5 - 16) 5 7 BUN (9 - 20 mg/dL) 38 H 48 H Creatinine (0.7 - 1.2 mg/dL) 1.0 1.0 Estimated GFR (>60 ml/min) > 60 > 60 BUN/Creatinine Ratio (7 - 25 %) 48.0 H Glucose (65 - 99 mg/dL) 103 H Calcium (8.4 - 10.2 mg/dL) 8.0 L Phosphorus (2.5 - 4.5 mg/dL) 3.8 Magnesium (1.6 - 2.3 mg/dL) 2.4 H Total Bilirubin (0.2 - 1.3 mg/dL) 0.9 AST (17 - 59 U/L) 17 ALT (21 - 72 U/L) 23 Troponin I (<0.11 ng/ml) 0.05 Albumin (3.5 - 5.0 g/dL) 2.6 L Hematology CBC w Diff NO MAN DIFF REQ NO MAN DIFF REQ WBC (4.8 - 10.8 /CUMM) 11.0 H 11.4 H RBC (4.70 - 6.10 /CUMM) 2.98 L 2.15 L Hgb (14.0 - 18.0 G/DL) 8.1 L 5.5 *L Hct (42 - 52 %) 24.6 L 17.5 *L MCV (80.0 - 94.0 FL) 82.7 81.2 MCH (27.0 - 31.0 PG) 27.1 25.5 L RDW (11.5 - 14.5 %) 19.9 H 22.8 H Plt Count (130 - 400 /CUMM) 156 172 MPV (7.4 - 10.4 FL) 8.4 8.5 Gran % (42.2 - 75.2 %) 86.7 H 80.3 H Lymphocytes % (20.5 - 51.1 %) 6.3 L 11.4 L Monocytes % (1.7 - 9.3 %) 6.6 7.5 Eosinophils % (0 - 5 %) 0.4 0.4 Basophils % (0.0 - 2.0 %) 0 0.4 Absolute Granulocytes (1.4 - 6.5 /CUMM) 9.5 H 9.1 H Absolute Lymphocytes (1.2 - 3.4 /CUMM) 0.7 L 1.3 Absolute Monocytes (0.10 - 0.60 /CUMM) 0.7 H 0.9 H Absolute Eosinophils (0.0 - 0.7 /CUMM) 0 0 Absolute Basophils (0.0 - 0.2 /CUMM) 0 0 PUBS MCHC (33.0 - 37.0 G/DL) 32.8 L 31.4 L 11/26 11/26 1800 1254 Chemistry Sodium (137 - 145 mmol/L) 136 L Potassium (3.5 - 5.1 mmol/L) 4.1 Chloride (98 - 107 mmol/L) 99 Carbon Dioxide (22 - 30 mmol/L) 27 Anion Gap (5 - 16) 10 BUN (9 - 20 mg/dL) 52 H Creatinine (0.7 - 1.2 mg/dL) 1.1 Estimated GFR (>60 ml/min) > 60 BUN/Creatinine Ratio (7 - 25 %) 47.3 H Glucose (65 - 99 mg/dL) 119 H Lactic Acid (0.7 - 2.1 mmol/L) 0.8 2.7 H Calcium (8.4 - 10.2 mg/dL) 8.3 L Magnesium (1.6 - 2.3 mg/dL) 2.6 H Total Bilirubin (0.2 - 1.3 mg/dL) 0.3 AST (17 - 59 U/L) 17 ALT (21 - 72 U/L) 24 Alkaline Phosphatase (< 127 U/L) 88 Lactate Dehydrogenase (313 - 618 U/L) 427 Troponin I (<0.11 ng/ml) 0.04 [id number] Pept (<125 pg/mL) 3000 H Total Protein (6.3 - 8.2 g/dL) 5.1 L Albumin (3.5 - 5.0 g/dL) 2.8 L Globulin (1.9 - 4.2 gm/dL) 2.3 Albumin/Globulin Ratio (1.1 - 2.2 %) 1.2 Coagulation PT (9.4 - 12.5 SEC) 14.4 H INR (0.90 - 1.17) 1.38 H APTT (25 - 37 SEC) 25 Hematology CBC w Diff Cancelled MAN DIFF ORDERED WBC (4.8 - 10.8 /CUMM) Cancelled 13.6 H RBC (4.70 - 6.10 /CUMM) Cancelled 1.40 L Hgb (14.0 - 18.0 G/DL) Cancelled 3.3 *L Hct (42 - 52 %) Cancelled 10.4 *L MCV (80.0 - 94.0 FL) Cancelled 74.6 L MCH (27.0 - 31.0 PG) Cancelled 23.4 L RDW (11.5 - 14.5 %) Cancelled 27.2 H Plt Count (130 - 400 /CUMM) Cancelled 214 MPV (7.4 - 10.4 FL) Cancelled 8.8 Gran % (42.2 - 75.2 %) 86.7 H Lymphocytes % (20.5 - 51.1 %) 7.3 L Monocytes % (1.7 - 9.3 %) 5.7 Eosinophils % (0 - 5 %) 0.3 Basophils % (0.0 - 2.0 %) 0 Absolute Granulocytes (1.4 - 6.5 /CUMM) 11.8 H Absolute Lymphocytes (1.2 - 3.4 /CUMM) 1.0 L Absolute Monocytes (0.10 - 0.60 /CUMM) 0.8 H Absolute Eosinophils (0.0 - 0.7 /CUMM) 0 Absolute Basophils (0.0 - 0.2 /CUMM) 0 Platelet Estimate (ADEQUATE) ADEQUATE Polychromasia 1+ Hypochromic-Microcytic 4+ Poikilocytosis 3+ Anisocytosis 3+ Microcytic Cells 2+ Ovalocytes 1+ Micheal Cells 1+ Elliptocytes 1+ Schistocytes 2+ PUBS MCHC (33.0 - 37.0 G/DL) Cancelled 31.4 L Urines Urinalysis LIGHT H Urine Color (YEL,AMB,STR) YEL Urine Clarity (CLEAR) CLEAR Urine pH (5.0 - 8.0) 6.0 Ur Specific [place] (1.001 - 1.035) 1.020 Urine Protein (NEG,<30 MG/DL) NEG Urine Ketones (NEG) NEG Urine Nitrite (NEG) NEG Urine Bilirubin (NEG) NEG Urine Urobilinogen (0.1 - 1.0 EU/dl) 0.2 Ur Leukocyte Esterase (NEG) TRACE H Ur Microscopic SEDIMENT EXAMINED Urine WBC (0 - 2 /HPF) 3-5 H Ur Epithelial Cells (NONE,FEW) FEW Urine Bacteria (NEG/NONE) FEW H Hyaline Casts (0/LPF) RARE H Granular Casts (NONE /LPF) FEW H Urine Mucus (FEW,NONE) FEW Urine Hemoglobin (NEG) NEG Urine Glucose (N MG/DL) NEG Imaging/Other Studies: 11/04/17: CT ABD & PELVIS W/O IV CONTRAST; CT CHEST WO IV CONTRAST- Small right greater than trace left bilateral pleural effusions with associated airspace disease. Cholelithiasis without evidence of cholecystitis. Residual contrast material present within the collecting system. Sigmoid diverticulosis without evidence of diverticulitis. Moderate to large amount stool within the rectum. 11/04/17: ECHOCARDIOGRAM- Normal size left ventricle. Mild concentric left ventricular hypertrophy. Segmental wall motion abnormalities as described above. Overall left ventricular systolic function appeared moderately hypokinetic with an estimated ejection fraction of 35%. Cannot exclude apical thrombus. Abnormal relaxation filling pattern of the left ventricle for age (stage 1 diastolic dysfunction). Normal right ventricular size and function. Normal right atrial size. Mild left atrial dilatation. Mild mitral regurgitation. Mild tricuspid regurgitation. No . Moderate pulmonary hypertension. Mild pulmonic regurgitation. Small pericardial effusion. Dilated inferior vena cava. 11/26/17: EKG- NSR @ 75, borderline LAD, borderline prolonged QT interval, indeterminate age anteroseptal IN, occasional unifocal PVC (without significant change from EKG of 11/05/17). 11/26/17: XR PORTABLE CHEST- Low lung volumes. Continued bilateral lower lobe atelectasis. Deviation of the trachea to the right at the thoracic inlet is caused by the dilated thoracic aorta. 11/27/17: *EGD WITH BIOPSY (& CYTOLOGY BRUSHINGS)- Impression: 1. 5 cm x 6 cm ulcerated, friable, irregular, necrotic antral lesion, tethered towards the lesser curvature/incisura, enveloping the pylorus, with mechanical gastric outlet obstruction. Cytology brushings, followed by 7 biopsies: ( Specimen A- rule out gastric Ca, rule out lymphoma, rule out severe peptic ulcer disease). Unable to locate pylorus or inspect duodenum. 2. Severely limited views of the proximal stomach, secondary to retained food.
--- NOTE | 2017-11-28 10:10 | PN- CRCU ---
Subjective HPI/Critical Care Issues: Seen and examined and pt to go to CT scan Events and data reviewed Pt with a large gastric mass Objective Current Medications: Current Medications Sig/Lacey Start time Last Medication Dose Route Stop Time Status Admin Albuterol Sulfate 3 ML TID 11/26 2200 AC 11/28 INH 0756 Aspirin 81 MG DAILY 11/26 1900 DC 11/27 PO 1018 Aspirin Buffered 81 MG DAILY 11/28 1003 UNVr PO Atorvastatin Calcium 80 MG 1700 11/26 2200 AC 11/27 PO 2019 Clopidogrel Bisulfate 75 MG DAILY 11/27 1000 AC 11/27 PO 1019 Docusate Sodium 100 MG ONCE ONE 11/27 2145 DC 11/27 PO 11/27 2146 2157 Ipratropium [place] 2.5 ML TID 11/26 2200 AC 11/28 INH 0756 Ipratropium [place] 2.5 ML Q6P PRN 11/26 1700 AC INH Pantoprazole Sodium 80 MG Q10H 11/26 1930 AC 11/28 Dextrose/Water 100 ML IV 0531 Senna 187 MG AT BEDTIME PRN 11/26 1845 AC 11/27 PO 2157 Sodium Chloride 1 SPRAY TID PRN 11/26 1700 AC [place] Vital Signs & I&O Last 24 Hrs of Vitals and I&O: Vital Signs Date Time Temp Pulse Resp B/P B/P Pulse O2 O2 Flow FiO2 Mean Ox Delivery Rate 11/28 0908 94 Nasal 2.0L Cannula 11/28 0800 94 Nasal 2.0L Cannula 11/28 0800 97.9 81 32 122/60 94 Nasal 2.0L Cannula 11/28 0400 95 Nasal 2.0L Cannula 11/28 0000 97 Nasal 2.0L Cannula 11/28 0000 97.2 76 29 114/50 95 Nasal 2.0L Cannula 11/27 2133 100 Nasal 2.0L Cannula 11/27 2000 95 Nasal 2.0L Cannula 11/27 1600 98 Nasal 2.0L Cannula 11/27 1200 96 Nasal 2.0L Cannula Intake & Output 11/28 1600 11/28 0800 11/28 0000 Intake Total 80 670 Output Total 500 0 Balance -420 670 Intake, Blood 350 Product Intake, IV 80 80 Intake, Oral 0 240 Number 0 0 Bowel Movements Output, Urine 500 0 Impression/Plan Impression/Plan Impression/Plan: 11/27/17: *EGD WITH BIOPSY (& CYTOLOGY BRUSHINGS)- Impression: 1. 5 cm x 6 cm ulcerated, friable, irregular, necrotic antral lesion, tethered towards the lesser curvature/incisura, enveloping the pylorus, with mechanical gastric outlet obstruction. Cytology brushings, followed by 7 biopsies: ( Specimen A- rule out gastric Ca, rule out lymphoma, rule out severe peptic ulcer disease). Unable to locate pylorus or inspect duodenum. 2. Severely limited views of the proximal stomach, secondary to retained food. 11/04/17: ECHOCARDIOGRAM- Normal size left ventricle. Mild concentric left ventricular hypertrophy. Segmental wall motion abnormalities as described above. Overall left ventricular systolic function appeared moderately hypokinetic with an estimated ejection fraction of 35%. Cannot exclude apical thrombus. Abnormal relaxation filling pattern of the left ventricle for age (stage 1 diastolic dysfunction). Normal right ventricular size and function. Normal right atrial size. Mild left atrial dilatation. Mild mitral regurgitation. Mild tricuspid regurgitation. No . Moderate pulmonary hypertension. Mild pulmonic regurgitation. Small pericardial effusion. Dilated inferior vena cava. General Appearance: well developed/nourished, no apparent distress, alert, awake , comfortable Head: atraumatic, normal appearance Ears, Nose, Throat: normal pharynx, normal ENT inspection, hearing grossly normal Neck: normal inspection, supple, full range of motion Respiratory: normal breath sounds, chest non-tender, no respiratory distress, lungs clear Cardiovascular: regular rate/rhythm Gastrointestinal: normal bowel sounds, soft, non-tender, no organomegaly Extremities: 1+ BLE pitting edema Pt with sever cad with recent HARPREET LAD with cardiogenic shock with resp failure who was intubated for hypercarbia with shock, INitial ef was 20 percent and increased to 39 post hatch supervisor, and was intubated and extubated in 72 hrs Now here with Severe Symptomatic anemia - pt has had sig anemia before his stent ( hgb was 6 grams), Now has a large gastric mass with prob pyloric obstruction 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 with shock and resp failure, stable Sig ischemic Cardiomyopathy Recent hypercarbic resp failure with pna and chf and effusions Anemia improved after transfusion and pt unfortunately has prob sig small oozing from the tumor with DAPT which he absoultely needs due to recent HARPREET to LAD REC Cont prbc transusion if hemoglobin is less than 8 grams NEeds DAPT per Cardio/ cardio and GI to decide further plans to see if pt would benefit from any other intervention, ie CABG etc Cardio and gi following and follow their rec Watch bp Stool monitoring for sig bleeding Watch for pulm edema Lasix prn cont statin Keep mag more than 2 and potassium more than 4 mechanical dvt prophylaxis Can go to the floor tele today
--- NOTE | 2017-11-28 10:24 | Transfer of Care Summary ---
Hospital Course Course Hospital Course: Mr Merritt is pleasant 82 yo m with past medical history significant for hypertension, dyslipidemia and recent PCI ([facility] 11/05/17) who is brought in by ambulance from [facility] with progressively worsening fatigue after found to have a low H&H- 3.2 and 10.3 respectively, during a PCP visit. In [facility] ED his H&H was 3.3/ and he was transfused 3U prbcs. His hgb increased to 5.5 and he was transfused an additional 2U prbcs. Significant Procedures: 11/27/17 Upper endoscopy Impression: 1. 5 cm x 6 cm ulcerated, friable, irregular, necrotic antral lesion, tethered towards the lesser curvature/incisura, enveloping the pylorus, with mechanical gastric outlet obstruction. Cytology brushings, followed by 7 biopsies: ( Specimen A- rule out gastric Ca, rule out lymphoma, rule out severe peptic ulcer disease). Unable to locate pylorus or inspect duodenum. 2. Severely limited views of the proximal stomach, secondary to retained food. Pertinent Lab Results: 11/26/17-1249 XRY-PORTABLE CHEST XRAY FINDINGS: Reexamination again shows low lung volumes with bibasilar airspace disease similar to the chest x-ray of 11/04/2017. The pleural effusions are difficult to assess on this semierect portable radiograph. Deviation of the trachea to the right at the thoracic inlet is caused by the dilated thoracic aorta. IMPRESSION: Continued bilateral lower lobe atelectasis. Assessment/Plan: Mr Merritt is pleasant 82 yo m with past medical history significant for hypertension, dyslipidemia and recent PCI ([place] 11/05/17) who is brought in by ambulance from [facility] for progressively worsening fatigue. In the ED he was found to be severly anemic and he was admitted to the ICU for further management and monitoring Respiratory: Patient required 2LNC on admission but his O2 sats remains > 95%. We discontinued oxygen supplementation ID: Leukocytosis most likely reactive in the setting of severe anemia * Hold off antibiotics * Monitor white count CVS: Severe hypotension, bilateral LE edema with recent PCI s/p LAD occlusion During his previous admission at [facility] 10/31/17 to 11/05/17 he wa SIB PCP for suspected new onset CHF. His ECHO at that time showed Stage 1 diastolic dysfunction with an estimated ejection fraction of 35%. He was transferred to [facility] where he underwent PCI with Synergy HARPREET after it was found that the patient has a 95% occlusion of LAD. His admission was complicated with respiratory acidosis and septic shock requiring intubation. He was extubated after 2 days * Cardiology recommendations appreciated * Continue leg elevation above heart * Strict I&O * Daily weights * CXR to r/o fluid overload, give IV Lasix if needed * Continue DAPT given recent HARPREET Hematology: Microcytic anemia most likely 2/2 acute blood loss The patient had previously refused EGD/colonoscopy when initially seen by GI-Dr. Candelario 11/02/17, at his previous admission. Patient reports he has no previous EGD or colonoscopy. At the time he was severely anemic and tranfused. He was readmitted 11/26/17, with worsening H/H 3.3/10.4, BUN/Cr ratio 47:1, and guaiac positive stools. Antiplatelet agents were continued in view of recent HARPREET. After agreeing to a EGD, patient was initially reluctant to have a dual colonoscopy done but patient later agreed to it. Colonoscopy was deferred to a later date because patient had not been bowel prepped. On 11/28/17 he had an EGD with biopsies performed by GI-Dr. Paige and found to have a mechanical gastric outlet obstruction suspicious for malignancy. * Change Protonix infusion to IV BID * Serial H/H, Q6-8 hours. Maintain H/H >8 * Maintain 2 Large bore IVs at all times * Guaiac all stools * Start Ferrous TID * GI recommendations appreciated * CT ABD/Pelvis to r/o visceral mass Metabolic: History of Hyponatremia - stable * Monitor sodium Alimentary: No active issue Nephrology: No active issues Diet: NPO DVT PPX: Alps Code: Full Code
--- NOTE | 2017-11-28 11:16 | PN- Cardiology ---
Subjective Subjective: No complaints. Hemodynamically stable after presentation with profound anemia s/p endoscopy with evidence of gastric mass with mechanical gastric outlet obstruction and differential diagnosis that includes: gastric carcinoma, lymphoma, severe peptic ulcer disease, etc. Objective Vital Signs and I&Os Vital Signs Date Time Temp Pulse Resp B/P B/P Pulse O2 O2 Flow FiO2 Mean Ox Delivery Rate 11/28 0908 94 Nasal 2.0L Cannula 11/28 0800 94 Nasal 2.0L Cannula 11/28 0800 97.9 81 32 122/60 94 Nasal 2.0L Cannula 11/28 0400 95 Nasal 2.0L Cannula 11/28 0000 97 Nasal 2.0L Cannula 11/28 0000 97.2 76 29 114/50 95 Nasal 2.0L Cannula 11/27 2133 100 Nasal 2.0L Cannula 11/27 2000 95 Nasal 2.0L Cannula 11/27 1600 98 Nasal 2.0L Cannula 11/27 1200 96 Nasal 2.0L Cannula Intake & Output 11/28 1600 11/28 0800 11/28 0000 11/27 1600 11/27 0800 11/27 0000 Intake Total 80 670 140 780 970 Output Total 500 0 450 250 440 Balance -420 670 -310 530 530 Intake, Blood 350 700 700 Product Intake, IV 80 80 80 80 270 Intake, Oral 0 240 60 0 Number 0 0 0 0 Bowel Movements Output, Urine 500 0 450 250 440 Patient 185 lb Weight Weight Bed scale Measurement Method Physical Exam: Well-developed, well-nourished elderly male in no acute distress with nasal oxygen in place. Vital signs: See above. Neck: No JVD, no bruits. Lungs: Clear to auscultation bilaterally. Heart: S1, S2 no murmur, gallop, or rub appreciated. PMI laterally displaced and diffuse. Abdomen: Soft, nontender, positive bowel sounds. Extremities: No edema. Current Medications: Current Medications Sig/Lacey Start time Last Medication Dose Route Stop Time Status Admin Albuterol Sulfate 3 ML TID 11/26 2200 AC 11/28 INH 0756 Aspirin 81 MG DAILY 11/26 1900 DC 11/27 PO 1018 Aspirin Buffered 81 MG DAILY 11/28 1003 AC PO Atorvastatin Calcium 80 MG 1700 11/26 2200 AC 11/27 PO 2019 Clopidogrel Bisulfate 75 MG DAILY 11/27 1000 AC 11/28 PO 1017 Docusate Sodium 100 MG ONCE ONE 11/27 2145 DC 11/27 PO 11/27 2146 215 Ferrous Sulfate 325 MG TID 11/28 1007 AC PO Ipratropium [place] 2.5 ML TID 11/26 2200 AC 11/28 INH 0756 Ipratropium [place] 2.5 ML Q6P PRN 11/26 1700 AC INH Pantoprazole Sodium 40 MG BID 11/28 2200 AC IV Pantoprazole Sodium 80 MG Q10H 11/26 1930 DC 11/28 Dextrose/Water 100 ML IV 0531 Senna 187 MG AT BEDTIME PRN 11/26 1845 AC 11/27 PO 2157 Sodium Chloride 1 SPRAY TID PRN 11/26 1700 AC [place] Results Last 48 Hrs of Labs/Mics: Laboratory Tests 11/28/17 0338: Anion Gap 5, Estimated GFR > 60, Glucose 97, Calcium 7.9 L, Phosphorus 3.5, Magnesium 2.3, Total Bilirubin 0.6, AST 16 L, ALT 24, Albumin 2.3 L, CBC w Diff NO MAN DIFF REQ, RBC 3.09 L, MCV 82.6, MCH 27.1, RDW 19.3 H, MPV 8.4, Gran % 81.9 H, Lymphocytes % 9.8 L, Monocytes % 7.7, Eosinophils % 0.5, Basophils % 0.1, Absolute Granulocytes 7.0 H, Absolute Lymphocytes 0.8 L, Absolute Monocytes 0.7 H, Absolute Eosinophils 0, Absolute Basophils 0, PUBS MCHC 32.8 L 11/27/17 1342: CBC w Diff NO MAN DIFF REQ, RBC 2.90 L, MCV 81.1, MCH 26.9 L, RDW 19.2 H, MPV 8.3, Gran % 87.1 H, Lymphocytes % 7.1 L, Monocytes % 5.5, Eosinophils % 0.2, Basophils % 0.1, Absolute Granulocytes 9.5 H, Absolute Lymphocytes 0.8 L, Absolute Monocytes 0.6, Absolute Eosinophils 0, Absolute Basophils 0, PUBS MCHC 33.1 11/27/17 0750: Anion Gap 5, Estimated GFR > 60, Glucose 103 H, Calcium 8.0 L, Phosphorus 3.8, Magnesium 2.4 H, Total Bilirubin 0.9, AST 17, ALT 23, Albumin 2.6 L, CBC w Diff NO MAN DIFF REQ, RBC 2.98 L, MCV 82.7, MCH 27.1, RDW 19.9 H, MPV 8.4, Gran % 86.7 H, Lymphocytes % 6.3 L, Monocytes % 6.6, Eosinophils % 0.4, Basophils % 0, Absolute Granulocytes 9.5 H, Absolute Lymphocytes 0.7 L, Absolute Monocytes 0.7 H, Absolute Eosinophils 0, Absolute Basophils 0, PUBS MCHC 32.8 L 11/26/17 2209: Anion Gap 7, Estimated GFR > 60, BUN/Creatinine Ratio 48.0 H, Troponin I 0.05, CBC w Diff NO MAN DIFF REQ, RBC 2.15 L, MCV 81.2, MCH 25.5 L, RDW 22.8 H, MPV 8.5, Gran % 80.3 H, Lymphocytes % 11.4 L, Monocytes % 7.5, Eosinophils % 0.4, Basophils % 0.4, Absolute Granulocytes 9.1 H, Absolute Lymphocytes 1.3, Absolute Monocytes 0.9 H, Absolute Eosinophils 0, Absolute Basophils 0, PUBS MCHC 31.4 L 11/26/17 1800: Lactic Acid 0.8, CBC w Diff Cancelled, WBC Cancelled, RBC Cancelled, Hgb Cancelled, Hct Cancelled, MCV Cancelled, MCH Cancelled, RDW Cancelled, Plt Count Cancelled, MPV Cancelled, PUBS MCHC Cancelled, Urinalysis LIGHT H, Urine Color YEL, Urine Clarity CLEAR, Urine pH 6.0, Ur Specific [place] 1.020, Urine Protein NEG, Urine Ketones NEG, Urine Nitrite NEG, Urine Bilirubin NEG, Urine Urobilinogen 0.2, Ur Leukocyte Esterase TRACE H, Ur Microscopic SEDIMENT EXAMINED, Urine WBC 3-5 H, Ur Epithelial Cells FEW, Urine Bacteria FEW H, Hyaline Casts RARE H, Granular Casts FEW H, Urine Mucus FEW, Urine Hemoglobin NEG, Urine Glucose NEG 11/26/17 1254: Anion Gap 10, Estimated GFR > 60, BUN/Creatinine Ratio 47.3 H, Glucose 119 H, Lactic Acid 2.7 H, Calcium 8.3 L, Magnesium 2.6 H, Total Bilirubin 0.3, AST 17, ALT 24, Alkaline Phosphatase 88, Lactate Dehydrogenase 427, Troponin I 0.04, Hfn-G-Awtdytzdspx Pept 3000 H, Total Protein 5.1 L, Albumin 2.8 L, Globulin 2.3, Albumin/Globulin Ratio 1.2, PT 14.4 H, INR 1.38 H, APTT 25, CBC w Diff MAN DIFF ORDERED, RBC 1.40 L, MCV 74.6 L, MCH 23.4 L, RDW 27.2 H, MPV 8.8, Gran % 86.7 H, Lymphocytes % 7.3 L, Monocytes % 5.7, Eosinophils % 0.3, Basophils % 0, Absolute Granulocytes 11.8 H, Absolute Lymphocytes 1.0 L, Absolute Monocytes 0.8 H, Absolute Eosinophils 0, Absolute Basophils 0, Platelet Estimate ADEQUATE, Polychromasia 1+, Hypochromic-Microcytic 4+, Poikilocytosis 3+, Anisocytosis 3+, Microcytic Cells 2+, Ovalocytes 1+, Micheal Cells 1+, Elliptocytes 1+, Schistocytes 2+, PUBS MCHC 31.4 L Assessment/Plan Assessment/Plan [id number]-o-[id number]-m w/ hx of pevious hyponatremia, long-standing tobacco use, hyponatremia, HTN, & HLD who was recently hospitalized here (10/31-11/05/2017) after presenting w/ new onset HFpEF and anemia for which he refused endoscopy/ colonoscopy and who after a benign initial hospital course became unstable w/ hypotensive on 11/04/2719 w/ ECG changes, positive troponins, and worsening LV function by repeat echocardiography who was stabilized and ultimately transferred to [facility] where he underwent urgent cardiac catheterization that revealed a high-grade (95%) proximal LAD stenosis for which he underwent PCI/HARPREET (Synergy) on antiplatelet therapy (clopidogrel, aspirin) w/ gradual improvement in his overall status and who presented from [facility] on 11/26/2017 w/ c/ o of weakness and the discovery of profound anemia 2/2 GI bleeding. Endoscopy performed 11/27/2017 by gastroenterology, Joshua Paige M.D. and revealed an ulcerated, friable, irregular, necrotic antral lesion, tethered towards the lesser curvature/incisura, enveloping the pylorus, with mechanical gastric outlet obstruction. Differential diagnosis for mass includes gastric carcinoma, lymphoma, severe peptic ulcer disease, etc. Biopsy specimen results pending. Fortunately, he is hemodynamically stable s/p transfusion of 5 units pRBCs and remains on antiplatelet therapy, but remains off his outpatient diuretic, JASKARAN inhibitor, and beta kortney regimen. Recommendations: * Continue ICU admission. * Continue antiplatelet therapy (ec ASA, Plavix) if okay with gastroenterology, given recent ACS & PCI/HARPREET. * Continue to follow-up H/H closely and transfuse packed cells as needed to maintain hemoglobin above 8.0 g/dl. * Continue to hold diuretic, beta kortney, and JASKARAN inhibitor therapy for the short-term. * Given poor LV function and volume from pRBCs recheck CXR and diuresis if necessary as blood pressure allows. * Follow-up on gastroenterology recommendations following endoscopy. * Mechanical DVT prophylaxis. Continue telemetry? Not applicable (In ICU.)
--- NOTE | 2017-11-28 13:21 | CT SCAN REPORT ---
EXAMINATION: CT ABDOMEN AND PELVIS WITHOUT CONTRAST CLINICAL INFORMATION: 82-year-old male underwent EGD evaluation on 11/27/2017. Gastric antral lesion was noted. COMPARISON: CT images of the abdomen from 12/06/2016 and 11/04/2017. TECHNIQUE: Multidetector volumetric imaging was performed from the superior aspect of the liver through the pubic symphysis. Sagittal and coronal reformatted images were obtained on the technologist's workstation. DLP: 555 mGy-cm FINDINGS: LUNG BASES: Three-vessel coronary artery atherosclerotic calcification. No pericardial effusion. Small bilateral pleural effusions, similar compared to 11/04/2017. Patchy, hazy opacity in the lingula and, to lesser extent right middle lobe, suggestive of atelectasis. There is compressive atelectasis in each lower lobe with probable superimposed consolidation, especially in the left lower lobe. The left lower lobe consolidation is worse compared to 11/04/2017. LIVER, GALLBLADDER, AND BILIARY TREE: Liver has normal size, contour and attenuation. No evidence of liver mass. The gallbladder is underdistended and contains iodinated contrast material and calculi. The iodinated contrast might be related to a recent ERCP procedure. There appears to be mild diffuse wall thickening of the underdistended gallbladder. Mild gallbladder wall edema could be secondary to anasarca. No intrahepatic or extrahepatic bile duct dilatation. PANCREAS: Unremarkable. SPLEEN: Unremarkable. ADRENAL GLANDS: Unremarkable. KIDNEYS AND URETERS: Kidneys are normal in size. No nephrolithiasis or hydronephrosis. There is persistent bilateral perinephric edema. The ureters are unremarkable. BLADDER: Unremarkable. GASTROINTESTINAL TRACT: The gastric antrum is underdistended. There was no bowel preparation for this CT exam, and patient did not receive oral contrast or IV contrast. There is no overt gastric wall thickening detected on this noncontrast exam. Also, no evidence of an exophytic gastric mass. The duodenum is unremarkable. Small and large bowel are normal in caliber. The appendix is normal. Scattered colonic diverticula without evidence of diverticulitis. No evidence of focal bowel wall thickening or focal mesenteric stranding. There is mild, generalized edema of mesentery and retroperitoneal fat. Trace amount of free fluid is seen along paracolic gutters. No pneumoperitoneum. ABDOMINAL WALL: There is edema of subcutaneous tissues of the abdominal wall/flanks and thighs. LYMPH NODES: No pathologic sized lymph nodes in the abdomen or pelvis. VASCULAR: Atherosclerotic calcification of the abdominal aorta without aneurysm. No retroperitoneal hematoma. PELVIC VISCERA: Prostate gland is unremarkable. There is persistent presacral soft tissue edema. 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 Multifactorial spinal canal stenosis of L3-L4, L4-L5 and L5-S1. No aggressive osseous lesions. There is a bone island of the right femoral head. IMPRESSION: 1. No acute findings along the gastrointestinal tract compared to 11/04/2017. No evidence of bowel perforation or abscess. 2. Anasarca with persistent small pleural effusions, soft tissue edema and trace fluid along paracolic gutters. 3. Gallbladder contains calculi and iodinated contrast material. The contrast is probably due to a recent ERCP procedure. 4. Bibasilar atelectasis/consolidation, worse in the left lower lobe compared to 11/04/2017.
--- NOTE | 2017-11-28 13:45 | RADIOLOGY REPORT ---
EXAMINATION: XR PORTABLE CHEST CLINICAL INFORMATION: Evaluate for fluid overload COMPARISON: 11/26/2017, 11/04/2017 TECHNIQUE: Portable frontal view of the chest was obtained. FINDINGS: Limited evaluation due to hypoinflation of the lungs. Hazy perihilar opacities, left greater than right. Bibasilar patchy opacities. No definite pleural effusion. No pneumothorax. Cardiomegaly, likely accentuated by hypoinflation of the lungs and technique. No acute or suspicious osseous abnormality. IMPRESSION: The constellation of findings is most consistent with COPD exacerbation, although the exam is limited by the patient's hypoinflation which can simulate these findings. Recommend repeat examination with PA and lateral imaging with full inspiratory effort for more specific and sensitive evaluation of the lung marshall.
[2017-11-28 14:42] VITALS: BP 110/60
[2017-11-28 22:21] VITALS: BP 106/62
[2017-11-29 06:54] VITALS: BP 110/42
[2017-11-29 08:11] LABS: ABSOLUTE BASOPHIL COUNT 0 /CUMM (0.0-0.2); ABSOLUTE EOSINOPHIL COUNT 0.1 /CUMM (0.0-0.7); ABSOLUTE GRANULOCYTE CT 6.3 /CUMM (1.4-6.5); ABSOLUTE LYMPH COUNT 0.7 /CUMM (1.2-3.4); ABSOLUTE MONOCYTE COUNT 0.5 /CUMM (0.10-0.60); BASOPHIL % 0.1 % (0.0-2.0); EOSINOPHIL % 0.9 % (0-5); MEAN CORPUSCULAR HGB 26.7 PG (27.0-31.0); MEAN CORPUSCULAR VOLUME 83.5 FL (80.0-94.0); MEAN PLATELET VOLUME 8.3 FL (7.4-10.4); PLATELET COUNT 141 /CUMM (130-400); RBC DISTRIBUTION WIDTH 19.9 % (11.5-14.5); RED BLOOD CELL CT 3.23 /CUMM (4.70-6.10); WHITE BLOOD CELL COUNT 7.5 /CUMM (4.8-10.8)
[2017-11-29 09:05] LABS: GRANULOCYTE % 83.9 % (42.2-75.2)
--- NOTE | 2017-11-29 09:36 | PN- Gastroenterology ---
Assessment/Plan Assessment/Recommendations: 82 y/o male, HTN, HLD, hx CHF, ASHD, post recent NSTEMI 11/05/17, requiring drug eluting cardiac stent at [facility] per Dr. Villarreal, at that time, on ASA & Plavix ( details of cardiac cath & coronary anatomy initially unavailable-> subsequently found to be 95% proximal LAD lesion, txd with Synergy stent, per my d/w Dr. Villarreal & Dr. Bolaños). The patient was seen by Dr. Candelario in GI consultation 02/14, after being admitted to [facility] 10/31/17 with complaints of worsening lower extremity edema, hypoNa, fatigue, & CHF exacerbation in the setting of new microcytic anemia. He got Lasix for the swelling with improvement, and then felt better. He was intermittently hypoxic & hypotensive then, requiring right IJ TLC. *At that time, he refused any endoscopic workup, despite being made aware of the risk of an occult GI malignancy. He reportedly was OB-negative then. He was transfused a total of 3 units PRBC that admission, for H/H 06/22 with MCV 63 & low ferritin. At that time, he denied any GERD, odynophagia, dysphagia, nausea, vomiting, early satiety, abdominal pain, hematemesis, melena, rectal bleeding, diarrhea, constipation, obstipation, tenesmus, change in stool caliber, weight loss, or change in appetite. He was not on any NSAIDS. He had a history of EVELIN & past hx alpha Strep bacteremia in 12/2016, due to L2-L3/L3-L4 osteomyelitis, txd with 6 weeks Ampicillin. *He had never had a baseline screening colonoscopy prior to the anemia, nor an EGD. He never followed up with Dr. Candelario as an outpatient. The patient had a normal troponin on 10/31/17, which bumped up to 12.7 & he was transferred to [facility] on 11/05/17 for subsequent drug-eluting cardiac stent later that day. He was txd with broad spectrum antibiotics at [place] prior to his transfer (Vanco/Fortaz), switched to Ceftriaxone, although his hypotension, leukocytosis, tachypnea & tachycardia then were felt to be due to an acute KY, rather than sepsis. There was no definite infiltrate then, & his positive E. Coli UC was felt to be a contaminant, per ID. The patient was convalescing at [facility] and had labs there by his PMD, revealing severe anemia (H/H 3.2/10.3), prompting him to be sent in to the [place] ER, where he arrived 11/26/17 at 12:43 p.m. Upon arrival, BP 80/38, P 118, R 20, T 97, O2 sat RA 99%. His BP improved to low normal after IVF & PRBC. At the time of my GI consult, he was in the midst of his 2nd unit PRBC & was adimitted to the ICU. *His GI ROS from above and below remained negative. He denied any melena, but his stools were intermittently dark on Fe. He denied any CP, but noted CONNELL & fatigue. He denied any SOB at rest, LOC, syncope, or palpitations. He denied any fevers, chills, acute back pain, sx of UTI, or URI. He denied any previous abdominal surgery. *He adamantly continued to refuse any invasive GI workup, although he was A & O x 3. He claimed that he made his own medical decisions, but that if he were incapacitated, 2 of his 3 children were POA (his son, Edu Merritt, & his dtr, Delia Dillon). *He had brown, OB+ stool on exam in the ER, per the PA, Gina Delcid. The patient recently D/C cigars. He denied any cigarettes, EtOH, or illicit drugs. He denied any FHx of GI disease, GI Ca, or inherited liver disease. There is no history of abdominal trauma or AAA. 12/05/16: IPEP/SPEP- without monoclonal gammopathy (c/w acute phase rx). 10/31/17: borderline elevated T4 11.9, nl TT3 1.05, nl TSH 1.26, Fe 13, TIBC 483 , *Fe sat 2%, *ferritin 12.3, B12 597, folate 8.8. 11/26/17: Admission labs- WBC 13.6 (87% gran/12 gran Ab), H/H 3.3/10.4, MCV 74.6 , RDW 27.2, PLT 214, PT 14.4, INR 1.38, PTT 25, glucose 119, BUN/Cr 52/1.1, GFR > 60, Na 136, K 4.1, HCO3 27, AG 10, lactate 2.7, Ca2+ 8.3, albumin 2.8, globulin 2.3, TBil 0.3, alk phos 88, AST 17, ALT 24, troponin 0.04, CK < 20, BNP 3000. 11/26/17: Fe 29, TIBC 319, Fe sat 9.1%, ferritin 22.5. 11/26/17: U/A- clear yellow, 1.020, 6.0, 3-5 WBC, rare hyaline cast, few granular cast, few bacteria, micro- otherwise negative; negative nitrite, trace esterase 11/04/17: CT ABD & PELVIS W/O IV CONTRAS; CT CHEST WO IV CONTRAST- Small right greater than trace left bilateral pleural effusions with associated airspace disease. Cholelithiasis without evidence of cholecystitis. Residual contrast material present within the collecting system. Sigmoid diverticulosis without evidence of diverticulitis. Moderate to large amount stool within the rectum. 11/04/17: ECHOCARDIOGRAM- Normal size left ventricle. Mild concentric left ventricular hypertrophy. Segmental wall motion abnormalities as described above. Overall left ventricular systolic function appeared moderately hypokinetic with an estimated ejection fraction of 35%. Cannot exclude apical thrombus. Abnormal relaxation filling pattern of the left ventricle for age (stage 1 diastolic dysfunction). Normal right ventricular size and function. Normal right atrial size. Mild left atrial dilatation. Mild mitral regurgitation. Mild tricuspid regurgitation. No . Moderate pulmonary hypertension. Mild pulmonic regurgitation. Small pericardial effusion. Dilated inferior vena cava. 11/26/17: EKG- NSR @ 75, borderline LAD, borderline prolonged QT interval, indeterminate age anteroseptal KY, occasional unifocal PVC (without significant change from EKG of 11/05/17). 11/26/17: XR PORTABLE CHEST- Low lung volumes. Continued bilateral lower lobe atelectasis. Deviation of the trachea to the right at the thoracic inlet is caused by the dilated thoracic aorta. *The patient clearly has iron deficiency anemia with OB positive stool. He recently had 11/05/17: NSTEMI & drug-eluting Synergy stent placed in proximal LAD then, which was 95% occluded. The patient is at very high risk for reocclusion and repeat KY if his antiplatelet agents are stopped at this point. This was discussed with the patient in detail. His elevated BUN/Cr ratio of 47:1 on admission was noted, favoring UGI etiology. Uncertain if UGI vs. LGI source ( benign vs. malignant). Recent CT was without retroperitoneal bleed or AAA. Doubt malabsorption. The patient had never had a baseline colonoscopy or EGD, as he repeatedly refused these, initially with Dr. Candelario on 11/02/17. He was still refusing these at the time of my 11/26/17: GI consult, as well. The patient is at higher risk for colonoscopy than EGD, a few weeks post NSTEMI. According to the medical housestaff, the patient then agreed to an EGD after I had left the ICU. I returned to the ICU this p.m. to speak with the patient at length again. The risks and benefits of EGD/colonoscopy were again discussed with the patient by myself in great detail. He is agreeable to EGD, but not to colonoscopy at present. He was told that even if the EGD shows some pathology, he should have a baseline outpatient colonoscopy in view of the severe Fe deficiency anemia. If the EGD is negative, I would advise an inpatient baseline colonoscopy, as the patient allows. If both EGD and colonoscopy are negative, an outpatient PillCam should be entertained. Ideally, I would like the patient to be adequately transfused preoperatively, to minimize any associated risk. The risks and benefits of EGD were discussed with the patient in detail & informed consent for this was obtained. 11/26/17: peak troponin .05 (3 sets neg) 11/27/17: glu 103, BUN/Cr 38/1.0, GFR > 60, Na 136, K 4.1, HCO3 31, AG 5, Mg 2.4 , Ca 8.0, albumin 2.6, TBil 0.9, AST 17, ALT 23 11/27/17: 1:42 p.m.- WBC 10.9, H/H 7.8/23.5 (after 4u PRBC), PLT 146 *As of 11/27/17, the patient remained hemodynamically stable and afebrile, in NSR in the ICU, with O2 sat 2L 98%. The patient had received a total of 5u PRBC to date, most recently at 3:49 p.m. on 11/27/17. He initially refused all GI endoscopic testing, then later agreed to EGD. Earlier on 11/27/17, he verbally agreed to colonoscopy as well, but it was too late to give him the bowel prep (potential aspiration at EGD), and so we will await the results of the EGD. The risks and benefits of eventual colonoscopy were discussed with the patient, and informed consent for colonoscopy was obtained from him, timing to be determined by clinical course. He remained on an IV Protonix drip. He remained on ASA 81 mg daily & Plavix. He had not yet had a bowel movement on 11/27/17, and denied any melena, rectal bleeding, or hematemesis. He denied any chest pain or shortness of breath. He denied any abdominal pain. He was NPO for EGD. ICU & cardiology notes appreciated. 11/27/17: *EGD WITH BIOPSY (& CYTOLOGY BRUSHINGS)- Impression: 1. 5 cm x 6 cm ulcerated, friable, irregular, necrotic antral lesion, tethered towards the lesser curvature/incisura, enveloping the pylorus, with mechanical gastric outlet obstruction. Cytology brushings, followed by 7 biopsies: ( Specimen A- rule out gastric Ca, rule out lymphoma, rule out severe peptic ulcer disease). Unable to locate pylorus or inspect duodenum. 2. Severely limited views of the proximal stomach, secondary to retained food. 11/28/17: WBC 8.5, H/H 8.4/25.5, PLT 133, glu 97, BUN/Cr 23/0.9, GFR > 60, Na 137, K 3.8, HCO3 32, AG 5, Mg 2.3, PO4 3.5, Ca 7.9, albumin 2.3, TBil 0.6, AST 16, ALT 24. *As of 11/28/17, the patient has received a total of 5u PRBC to date this admission. Hgb was stabilizing & BUN dropped. He remained on ASA 81 mg daily & Plavix, post 11/05/17: HARPREET of LAD. He remained on a Protonix drip & was NPO, awaiting CTE. His BP was now in the normal range. He was not tachycardic. He remained afebrile , with O2 sat 2L- 95%. He denied any hematemesis, nausea, vomiting, early satiety, melena, rectal bleeding, abdominal pain, CP, or SOB. He was hungry. *I requested a CTE (i.e.- CT with IV contrast & po Volumen), but for some reason , only a non-contrast CT AP was obtained on 11/28/17 by the medical housestaff! 11/28/17: CT ABDOMEN AND PELVIS WITHOUT CONTRAST- (*personally reviewed with Dr. Hogue, of [facility])- 1. No acute findings along the gastrointestinal tract compared to 11/04/2017. No evidence of bowel perforation or abscess. Underdistended gastric antrum limiting exam. No exophytic gastric mass. Normal SB, LB, AP. Scattered diverticulosis coli, without diverticulitis. No free air. trace free fluid at paracolic gutters. No adenopathy. 2. Anasarca with persistent small B/L pleural effusions, soft tissue edema and trace fluid along paracolic gutters. Bibasilar atelectasis with LLL consolidation. 3. Gallbladder contains calculi and iodinated contrast material. The contrast is probably due to a recent ERCP procedure. Mild GB wall edema due to anasarca. No dilated ducts. Normal pancreas. (No recent ERCP done!- probable incidental "milk of calcium," per radiology). 4. Bibasilar atelectasis/consolidation, worse in the left lower lobe compared to 11/04/2017. 5. Three-vessel coronary ASHD. ASHD aorta without AAA. No retroperitoneal bleed. 6. DJD. 11/28/17: XR PORTABLE CHEST- The constellation of findings is most consistent with COPD exacerbation, although the exam is limited by the patient's hypoinflation which can simulate these findings. Recommend repeat examination with PA and lateral imaging with full inspiratory effort for more specific and sensitive evaluation of the lung marshall. 11/29/17: WBC 7.5, H/H 8.6/27, PLT 141, BUN/Cr 11/0.9, GFR > 60, Na 141, K 3.7, HCO3 33, AG 6. *As of 11/29/17, the patient was hemodynamically stable and afebrile, with O2 sat 2L 96%. CM: NSR with occasional unifocal PVC. He was transferred from the ICU to telemetry on 11/28/17. He had received a total of 5u PRBC to date this admission. His Hgb had stabilized & his BUN had dropped. He remained on IV Protonix 40 mg BID. His baby ASA was changed to Ecotrin 81 mg po daily & he remained on Plavix. FeSO4 325 mg po TID was added. He was receiving TRC. He was not yet ambulatory. He was tolerating clears po. He denied any early satiety, despite the 11/27/17: EGD findings. He denied any overt GI bleeding, hematemesis, or melena. There was no abdominal pain, nausea, vomiting, CP, SOB, or palpitations. (*Upon my review of the 11/28/17: CT AP without contrast with Dr. Houge, after giving him additional history, there was retained food in the stomach & suggestion of a distal stomach mass effect; *to be better defined by CTE). *SUGGEST: *NPO for CTE with po Volumen & IV contrast later today, to better assess gastric antrum & to rule out potential metastatic disease, if the ulcerated antral lesion is malignant.*Once CTE done, resume careful trial of clears po, with aspiration precautions. *Nutrition consult for supplements. *Await 11/27/17: gastric antral cytology brushings and biopsies. *Keep Hgb > 8 (hx ASHD/NSTEMI). *Check CBC daily for now. May need prophylactic Lasix with further transfusions, with history of CHF. Supplemental O2 as needed. *Continue Protonix 40 mg IV Q12h (no reported interaction with Plavix, as opposed to other PPI). Carefully continue Ecotrin 81 mg daily & Plavix for now, in view of 11/05/17: HARPREET to LAD. DVT prophylaxis with mechanical ALPS. Physical therapy consult to mobilize patient. No NSAIDs. Based on the above EGD findings, will defer baseline colonoscopy, PillCam, and/or a celiac panel for now. *Continue FeSO4 repletion 325 mg po TID. *Continue Colace & Senna (may need to add Miralax 17g po daily, on Fe). The above findings were again discussed with the patient, & previously with his son/POA, Edu Merritt ([phone]). The critical nature of the patient's illness and the severe limitations in workup and treatment were discussed, keeping in mind the recent 11/05/17: NSTEMI and HARPREET of LAD, as the patient is now committed to long-term aspirin and Plavix. Furthermore, he is not a good surgical candidate, and there may be nutritional issues, depending on the severity of the mechanical gastric outlet obstruction. I briefly discussed the option of a potential transfer to [facility] with the patient and his son, Edu , on 11/27/17, although I am not certain what they may do differently there (* aside from perhaps conversion of HARPREET LAD to a formal CABG, if GI bleeding on ASA /Plavix remains problematic). The patient's family will discuss this, and get back to his current physicians. The patien's son/POA, Edu Merritt, was given my office number. *Further GI recommendations to follow, depending on clinical course and cytology/pathology results (which may take some time to come back). The above was again discussed with the medical house staff in great detail. Problem List: 1. Iron deficiency anemia 2. GI bleed 3. Antral ulcer 4. Malnutrition 5. Hypotension 6. ASHD (arteriosclerotic heart disease) 7. CHF (congestive heart failure) Subjective Subjective: *I requested a CTE (i.e.- CT with IV contrast & po Volumen), but for some reason , only a non-contrast CT AP was obtained on 11/28/17 by the medical housestaff! 11/28/17: CT ABDOMEN AND PELVIS WITHOUT CONTRAST- (*personally reviewed with Dr. Hogue, of [facility])- 1. No acute findings along the gastrointestinal tract compared to 11/04/2017. No evidence of bowel perforation or abscess. Underdistended gastric antrum limiting exam. No exophytic gastric mass. Normal SB, LB, AP. Scattered diverticulosis coli, without diverticulitis. No free air. trace free fluid at paracolic gutters. No adenopathy. 2. Anasarca with persistent small B/L pleural effusions, soft tissue edema and trace fluid along paracolic gutters. Bibasilar atelectasis with LLL consolidation. 3. Gallbladder contains calculi and iodinated contrast material. The contrast is probably due to a recent ERCP procedure. Mild GB wall edema due to anasarca. No dilated ducts. Normal pancreas. (No recent ERCP done!- probable incidental "milk of calcium," per radiology). 4. Bibasilar atelectasis/consolidation, worse in the left lower lobe compared to 11/04/2017. 5. Three-vessel coronary ASHD. ASHD aorta without AAA. No retroperitoneal bleed. 6. DJD. 11/28/17: XR PORTABLE CHEST- The constellation of findings is most consistent with COPD exacerbation, although the exam is limited by the patient's hypoinflation which can simulate these findings. Recommend repeat examination with PA and lateral imaging with full inspiratory effort for more specific and sensitive evaluation of the lung marshall. 11/29/17: WBC 7.5, H/H 8.6/27, PLT 141, BUN/Cr 11/0.9, GFR > 60, Na 141, K 3.7, HCO3 33, AG 6. *As of 11/29/17, the patient was hemodynamically stable and afebrile, with O2 sat 2L 96%. CM: NSR with occasional unifocal PVC. He was transferred from the ICU to telemetry on 11/28/17. He had received a total of 5u PRBC to date this admission. His Hgb had stabilized & his BUN had dropped. He remained on IV Protonix 40 mg BID. His baby ASA was changed to Ecotrin 81 mg po daily & he remained on Plavix. FeSO4 325 mg po TID was added. He was receiving TRC. He was not yet ambulatory. He was tolerating clears po. He denied any early satiety, despite the 11/27/17: EGD findings. He denied any overt GI bleeding, hematemesis, or melena. There was no abdominal pain, nausea, vomiting, CP, SOB, or palpitations. (*Upon my review of the 11/28/17: CT AP without contrast with Dr. Hogue, after giving him additional history, there was retained food in the stomach & suggestion of a distal stomach mass effect; *to be better defined by CTE). Review of Systems: Full 14 point ROS otherwise noncontributory and as above. Review of Systems Constitutional: Denies: chills, diaphoresis, fever, malaise, weakness, unexplained weight loss. EENTM: Denies: blurred vision, double vision, visual changes, eye pain, eye drainage, eye tearing, icterus, ear discharge, ear pain, ear redness, hearing changes, nasal congestion, epistaxis, nasal pain, throat pain, throat swelling, mouth pain, tooth pain. Cardiovascular: Reports: peripheral edema- improving. Denies: chest pain, edema, orthopena, palpitations, syncope. Respiratory: Reports: short of breath (CONNELL)- improving. Denies: cough, hemoptysis, orthopnea, sputum production, stridor, wheezing. GI: Denies: abdominal pain, bloating, constipation, diarrhea, distention, bowel incontinence, melena, nausea, bloody stool, changes in stool, vomiting, steatorrhea. Genitourinary: Denies: discharge, dysuria, frequency, hematuria, hesitation, nocturia, pain, urgency. Musculoskeletal: Denies: back pain, gout, joint pain, joint swelling, muscle pain, muscle stiffness, neck pain. Skin: Denies: cysts, change in skin color, change in hair/nails, dryness, erythema, jaundice, lesions, lymphangitis, lumps, moles, rash. Neurological/Psychological: Denies: anxiety, ataxia, cognitive dysfunction, confusion, depressed, dementia, emotional problems, headache, numbness, paresthesia, pre-existing deficit, petit mal seizures, tingling, tremors, tonic-clonic seizures, unable to move lower ext , unable to move upper ext, weakness. Hematologic/Endocrine: Denies: bruising, bleeding, polyuria, polydipsia. Immunologic/Allergic: Denies: splenectomy, HIV/AIDS, lymphadenopathy. All Other Systems: Reviewed and Negative Objective Vital Signs and I&Os Vital Signs Date Time Temp Pulse Resp B/P B/P Pulse O2 O2 Flow FiO2 Mean Ox Delivery Rate 11/29 0654 97.8 75 28 110/42 93 Nasal 2.0L Cannula 11/29 0000 95 Nasal 2.0L Cannula 11/28 2221 97.7 72 16 106/62 95 Nasal 2.0L Cannula 11/28 2041 95 Nasal 2.0L Cannula 11/28 1600 Nasal 2.0L Cannula 11/28 1442 98.0 72 16 110/60 98 Nasal 2.0L Cannula 11/28 1300 Nasal 2.0L Cannula Intake & Output 11/29 1600 11/29 0400 11/28 1600 11/28 0400 11/27 1600 11/27 0400 Intake Total 240 480 916 670 920 970 Output Total 1648 865 0052 0 700 440 Balance -910 -410 -209 670 220 530 Intake, Blood 350 700 700 Product Intake, IV 116 80 160 270 Intake, Oral 240 480 800 240 60 0 Number 0 0 0 0 0 Bowel Movements Output, Urine 7598 189 8975 0 700 440 Patient 185 lb Weight Weight Bed scale Measurement Method Physical Exam: Well-developed, slightly malnourished male, in no apparent distress, feeling stronger post transfusions. Sclera anicteric. Conjunctiva pink. Oropharynx clear. No oral thrush. No aphthous ulcers. Poor dentition. There is no adenopathy, thyromegaly, JVD, or HJR. No peripheral stigmata of inflammatory bowel disease or chronic liver disease on exam. No spiders on the anterior chest wall. No gynecomastia. No CVA tenderness. Lungs: clear to A&P. No wheezing, rales, or definite rhonchi. Slight decreased BS at the bases B/L. Heart exam: regular rate rhythm, S1 and S2, with soft I/ systolic murmur. Abdominal exam: normal bowel sounds, soft belly, nontender, without guarding or rebound. No mass. No organomegaly. Negative Holt sign. No fluid shift. No pulsatile mass. No epigastric bruit. Digital rectal exam (11/26/17: per TELMA Lopez, in [facility])- brown stool, OB-positive. Extremities: without cyanosis or clubbing. 1+ pitting pedal edema LE B/L. No palpable cords. B/L ALPS. Mild DJD. No rash. No palmar erythema. No Dupuytren's contractures. Distal pulses 1+ bilaterally. DTRs 2+ bilaterally. Alert and oriented x 3. Left handed. Motor 5/5 B/L. No tremor. No asterixis. Current Medications: Current Medications Sig/Lacey Start time Last Medication Dose Route Stop Time Status Admin Albuterol Sulfate 3 ML BID 11/28 2200 AC 11/29 INH 0936 Albuterol Sulfate 3 ML TID 11/26 2200 DC 11/28 INH 0756 Aspirin Buffered 81 MG DAILY 11/28 1003 AC 11/28 PO 1154 Atorvastatin Calcium 80 MG 1700 11/26 2200 AC 11/28 PO 1624 Clopidogrel Bisulfate 75 MG DAILY 11/27 1000 AC 11/28 PO 1017 Ferrous Sulfate 325 MG TID 11/28 1007 AC 11/28 PO 2103 Ipratropium [place] 2.5 ML BID 11/28 2200 AC 11/29 INH 0936 Ipratropium [place] 2.5 ML TID 11/260 DC 11/28 INH 0756 Ipratropium [place] 2.5 ML Q6P PRN 11/26 1700 AC INH Pantoprazole Sodium 40 MG BID 11/28 2200 AC 11/28 IV 2103 Senna 187 MG AT BEDTIME PRN 11/26 1845 AC 11/27 PO 2157 Sodium Chloride 1 SPRAY TID PRN 11/26 1700 AC [place] Results Pertinent Lab Results: Laboratory Tests 11/29 11/28 0626 0338 Chemistry Sodium (137 - 145 mmol/L) 140 137 Potassium (3.5 - 5.1 mmol/L) 3.7 3.8 Chloride (98 - 107 mmol/L) 101 101 Carbon Dioxide (22 - 30 mmol/L) 33 H 32 H Anion Gap (5 - 16) 6 5 BUN (9 - 20 mg/dL) 11 23 H Creatinine (0.7 - 1.2 mg/dL) 0.9 0.9 Estimated GFR (>60 ml/min) > 60 > 60 BUN/Creatinine Ratio (7 - 25 %) 12.2 Glucose (65 - 99 mg/dL) 97 Calcium (8.4 - 10.2 mg/dL) 7.9 L Phosphorus (2.5 - 4.5 mg/dL) 3.5 Magnesium (1.6 - 2.3 mg/dL) 2.3 Total Bilirubin (0.2 - 1.3 mg/dL) 0.6 AST (17 - 59 U/L) 16 L ALT (21 - 72 U/L) 24 Albumin (3.5 - 5.0 g/dL) 2.3 L Hematology CBC w Diff NO MAN DIFF REQ NO MAN DIFF REQ WBC (4.8 - 10.8 /CUMM) 7.5 8.5 RBC (4.70 - 6.10 /CUMM) 3.23 L 3.09 L Hgb (14.0 - 18.0 G/DL) 8.6 L 8.4 L Hct (42 - 52 %) 27.0 L 25.5 L MCV (80.0 - 94.0 FL) 83.5 82.6 MCH (27.0 - 31.0 PG) 26.7 L 27.1 RDW (11.5 - 14.5 %) 19.9 H 19.3 H Plt Count (130 - 400 /CUMM) 141 133 MPV (7.4 - 10.4 FL) 8.3 8.4 Gran % (42.2 - 75.2 %) 83.9 H 81.9 H Lymphocytes % (20.5 - 51.1 %) 8.7 L 9.8 L Monocytes % (1.7 - 9.3 %) 6.4 7.7 Eosinophils % (0 - 5 %) 0.9 0.5 Basophils % (0.0 - 2.0 %) 0.1 0.1 Absolute Granulocytes (1.4 - 6.5 /CUMM) 6.3 7.0 H Absolute Lymphocytes (1.2 - 3.4 /CUMM) 0.7 L 0.8 L Absolute Monocytes (0.10 - 0.60 /CUMM) 0.5 0.7 H Absolute Eosinophils (0.0 - 0.7 /CUMM) 0.1 0 Absolute Basophils (0.0 - 0.2 /CUMM) 0 0 PUBS MCHC (33.0 - 37.0 G/DL) 32.0 L 32.8 L 11/27 11/27 1342 0750 Chemistry Sodium (137 - 145 mmol/L) 136 L Potassium (3.5 - 5.1 mmol/L) 4.1 Chloride (98 - 107 mmol/L) 100 Carbon Dioxide (22 - 30 mmol/L) 31 H Anion Gap (5 - 16) 5 BUN (9 - 20 mg/dL) 38 H Creatinine (0.7 - 1.2 mg/dL) 1.0 Estimated GFR (>60 ml/min) > 60 Glucose (65 - 99 mg/dL) 103 H Calcium (8.4 - 10.2 mg/dL) 8.0 L Phosphorus (2.5 - 4.5 mg/dL) 3.8 Magnesium (1.6 - 2.3 mg/dL) 2.4 H Total Bilirubin (0.2 - 1.3 mg/dL) 0.9 AST (17 - 59 U/L) 17 ALT (21 - 72 U/L) 23 Albumin (3.5 - 5.0 g/dL) 2.6 L Hematology CBC w Diff NO MAN DIFF REQ NO MAN DIFF REQ WBC (4.8 - 10.8 /CUMM) 10.9 H 11.0 H RBC (4.70 - 6.10 /CUMM) 2.90 L 2.98 L Hgb (14.0 - 18.0 G/DL) 7.8 L 8.1 L Hct (42 - 52 %) 23.5 L 24.6 L MCV (80.0 - 94.0 FL) 81.1 82.7 MCH (27.0 - 31.0 PG) 26.9 L 27.1 RDW (11.5 - 14.5 %) 19.2 H 19.9 H Plt Count (130 - 400 /CUMM) 146 156 MPV (7.4 - 10.4 FL) 8.3 8.4 Gran % (42.2 - 75.2 %) 87.1 H 86.7 H Lymphocytes % (20.5 - 51.1 %) 7.1 L 6.3 L Monocytes % (1.7 - 9.3 %) 5.5 6.6 Eosinophils % (0 - 5 %) 0.2 0.4 Basophils % (0.0 - 2.0 %) 0.1 0 Absolute Granulocytes (1.4 - 6.5 /CUMM) 9.5 H 9.5 H Absolute Lymphocytes (1.2 - 3.4 /CUMM) 0.8 L 0.7 L Absolute Monocytes (0.10 - 0.60 /CUMM) 0.6 0.7 H Absolute Eosinophils (0.0 - 0.7 /CUMM) 0 0 Absolute Basophils (0.0 - 0.2 /CUMM) 0 0 PUBS MCHC (33.0 - 37.0 G/DL) 33.1 32.8 L 11/26 11/26 2209 1800 Chemistry Sodium (137 - 145 mmol/L) 136 L Potassium (3.5 - 5.1 mmol/L) 4.1 Chloride (98 - 107 mmol/L) 100 Carbon Dioxide (22 - 30 mmol/L) 29 Anion Gap (5 - 16) 7 BUN (9 - 20 mg/dL) 48 H Creatinine (0.7 - 1.2 mg/dL) 1.0 Estimated GFR (>60 ml/min) > 60 BUN/Creatinine Ratio (7 - 25 %) 48.0 H Lactic Acid (0.7 - 2.1 mmol/L) 0.8 Troponin I (<0.11 ng/ml) 0.05 Hematology CBC w Diff NO MAN DIFF REQ Cancelled WBC (4.8 - 10.8 /CUMM) 11.4 H Cancelled RBC (4.70 - 6.10 /CUMM) 2.15 L Cancelled Hgb (14.0 - 18.0 G/DL) 5.5 *L Cancelled Hct (42 - 52 %) 17.5 *L Cancelled MCV (80.0 - 94.0 FL) 81.2 Cancelled MCH (27.0 - 31.0 PG) 25.5 L Cancelled RDW (11.5 - 14.5 %) 22.8 H Cancelled Plt Count (130 - 400 /CUMM) 172 Cancelled MPV (7.4 - 10.4 FL) 8.5 Cancelled Gran % (42.2 - 75.2 %) 80.3 H Lymphocytes % (20.5 - 51.1 %) 11.4 L Monocytes % (1.7 - 9.3 %) 7.5 Eosinophils % (0 - 5 %) 0.4 Basophils % (0.0 - 2.0 %) 0.4 Absolute Granulocytes (1.4 - 6.5 /CUMM) 9.1 H Absolute Lymphocytes (1.2 - 3.4 /CUMM) 1.3 Absolute Monocytes (0.10 - 0.60 /CUMM) 0.9 H Absolute Eosinophils (0.0 - 0.7 /CUMM) 0 Absolute Basophils (0.0 - 0.2 /CUMM) 0 PUBS MCHC (33.0 - 37.0 G/DL) 31.4 L Cancelled Urines Urinalysis LIGHT H Urine Color (YEL,AMB,STR) YEL Urine Clarity (CLEAR) CLEAR Urine pH (5.0 - 8.0) 6.0 Ur Specific [place] (1.001 - 1.035) 1.020 Urine Protein (NEG,<30 MG/DL) NEG Urine Ketones (NEG) NEG Urine Nitrite (NEG) NEG Urine Bilirubin (NEG) NEG Urine Urobilinogen (0.1 - 1.0 EU/dl) 0.2 Ur Leukocyte Esterase (NEG) TRACE H Ur Microscopic SEDIMENT EXAMINED Urine WBC (0 - 2 /HPF) 3-5 H Ur Epithelial Cells (NONE,FEW) FEW Urine Bacteria (NEG/NONE) FEW H Hyaline Casts (0/LPF) RARE H Granular Casts (NONE /LPF) FEW H Urine Mucus (FEW,NONE) FEW Urine Hemoglobin (NEG) NEG Urine Glucose (N MG/DL) NEG 11/26 1254 Chemistry Sodium (137 - 145 mmol/L) 136 L Potassium (3.5 - 5.1 mmol/L) 4.1 Chloride (98 - 107 mmol/L) 99 Carbon Dioxide (22 - 30 mmol/L) 27 Anion Gap (5 - 16) 10 BUN (9 - 20 mg/dL) 52 H Creatinine (0.7 - 1.2 mg/dL) 1.1 Estimated GFR (>60 ml/min) > 60 BUN/Creatinine Ratio (7 - 25 %) 47.3 H Glucose (65 - 99 mg/dL) 119 H Lactic Acid (0.7 - 2.1 mmol/L) 2.7 H Calcium (8.4 - 10.2 mg/dL) 8.3 L Magnesium (1.6 - 2.3 mg/dL) 2.6 H Total Bilirubin (0.2 - 1.3 mg/dL) 0.3 AST (17 - 59 U/L) 17 ALT (21 - 72 U/L) 24 Alkaline Phosphatase (< 127 U/L) 88 Lactate Dehydrogenase (313 - 618 U/L) 427 Troponin I (<0.11 ng/ml) 0.04 [id number] Pept (<125 pg/mL) 3000 H Total Protein (6.3 - 8.2 g/dL) 5.1 L Albumin (3.5 - 5.0 g/dL) 2.8 L Globulin (1.9 - 4.2 gm/dL) 2.3 Albumin/Globulin Ratio (1.1 - 2.2 %) 1.2 Coagulation PT (9.4 - 12.5 SEC) 14.4 H INR (0.90 - 1.17) 1.38 H APTT (25 - 37 SEC) 25 Hematology CBC w Diff MAN DIFF ORDERED WBC (4.8 - 10.8 /CUMM) 13.6 H RBC (4.70 - 6.10 /CUMM) 1.40 L Hgb (14.0 - 18.0 G/DL) 3.3 *L Hct (42 - 52 %) 10.4 *L MCV (80.0 - 94.0 FL) 74.6 L MCH (27.0 - 31.0 PG) 23.4 L RDW (11.5 - 14.5 %) 27.2 H Plt Count (130 - 400 /CUMM) 214 MPV (7.4 - 10.4 FL) 8.8 Gran % (42.2 - 75.2 %) 86.7 H Lymphocytes % (20.5 - 51.1 %) 7.3 L Monocytes % (1.7 - 9.3 %) 5.7 Eosinophils % (0 - 5 %) 0.3 Basophils % (0.0 - 2.0 %) 0 Absolute Granulocytes (1.4 - 6.5 /CUMM) 11.8 H Absolute Lymphocytes (1.2 - 3.4 /CUMM) 1.0 L Absolute Monocytes (0.10 - 0.60 /CUMM) 0.8 H Absolute Eosinophils (0.0 - 0.7 /CUMM) 0 Absolute Basophils (0.0 - 0.2 /CUMM) 0 Platelet Estimate (ADEQUATE) ADEQUATE Polychromasia 1+ Hypochromic-Microcytic 4+ Poikilocytosis 3+ Anisocytosis 3+ Microcytic Cells 2+ Ovalocytes 1+ [place] Cells 1+ Elliptocytes 1+ Schistocytes 2+ PUBS MCHC (33.0 - 37.0 G/DL) 31.4 L Imaging/Other Studies: 11/04/17: CT ABD & PELVIS W/O IV CONTRAST; CT CHEST WO IV CONTRAST- Small right greater than trace left bilateral pleural effusions with associated airspace disease. Cholelithiasis without evidence of cholecystitis. Residual contrast material present within the collecting system. Sigmoid diverticulosis without evidence of diverticulitis. Moderate to large amount stool within the rectum. 11/04/17: ECHOCARDIOGRAM- Normal size left ventricle. Mild concentric left ventricular hypertrophy. Segmental wall motion abnormalities as described above. Overall left ventricular systolic function appeared moderately hypokinetic with an estimated ejection fraction of 35%. Cannot exclude apical thrombus. Abnormal relaxation filling pattern of the left ventricle for age (stage 1 diastolic dysfunction). Normal right ventricular size and function. Normal right atrial size. Mild left atrial dilatation. Mild mitral regurgitation. Mild tricuspid regurgitation. No . Moderate pulmonary hypertension. Mild pulmonic regurgitation. Small pericardial effusion. Dilated inferior vena cava. 11/26/17: EKG- NSR @ 75, borderline LAD, borderline prolonged QT interval, indeterminate age anteroseptal [place], occasional unifocal PVC (without significant change from EKG of 11/05/17). 11/26/17: XR PORTABLE CHEST- Low lung volumes. Continued bilateral lower lobe atelectasis. Deviation of the trachea to the right at the thoracic inlet is caused by the dilated thoracic aorta. 11/27/17: *EGD WITH BIOPSY (& CYTOLOGY BRUSHINGS)- Impression: 1. 5 cm x 6 cm ulcerated, friable, irregular, necrotic antral lesion, tethered towards the lesser curvature/incisura, enveloping the pylorus, with mechanical gastric outlet obstruction. Cytology brushings, followed by 7 biopsies: ( Specimen A- rule out gastric Ca, rule out lymphoma, rule out severe peptic ulcer disease). Unable to locate pylorus or inspect duodenum. 2. Severely limited views of the proximal stomach, secondary to retained food. *I requested a CTE (i.e.- CT with IV contrast & po Volumen), but for some reason , only a non-contrast CT AP was obtained on 11/28/17 by the medical housestaff! 11/28/17: CT ABDOMEN AND PELVIS WITHOUT CONTRAST- (*personally reviewed with Dr. Hogue, of [facility])- 1. No acute findings along the gastrointestinal tract compared to 11/04/2017. No evidence of bowel perforation or abscess. Underdistended gastric antrum limiting exam. No exophytic gastric mass. Normal SB, LB, AP. Scattered diverticulosis coli, without diverticulitis. No free air. trace free fluid at paracolic gutters. No adenopathy. 2. Anasarca with persistent small B/L pleural effusions, soft tissue edema and trace fluid along paracolic gutters. Bibasilar atelectasis with LLL consolidation. 3. Gallbladder contains calculi and iodinated contrast material. The contrast is probably due to a recent ERCP procedure. Mild GB wall edema due to anasarca. No dilated ducts. Normal pancreas. (No recent ERCP done!- probable incidental "milk of calcium," per radiology). 4. Bibasilar atelectasis/consolidation, worse in the left lower lobe compared to 11/04/2017. 5. Three-vessel coronary ASHD. ASHD aorta without AAA. No retroperitoneal bleed. 6. DJD. 11/28/17: XR PORTABLE CHEST- The constellation of findings is most consistent with COPD exacerbation, although the exam is limited by the patient's hypoinflation which can simulate these findings. Recommend repeat examination with PA and lateral imaging with full inspiratory effort for more specific and sensitive evaluation of the lung marshall.
--- NOTE | 2017-11-29 10:01 | PN- Housestaff ---
See Addendum Subjective Follow-up For: Microcytic anemia, unknown etiology Subjective: I seen and examined the patient. The patient is lying comfortably in the bed. Asymptomatic. Offers no complains, no overnight acute events. Review of Systems Constitutional: Reports: see HPI. Objective Last 24 Hrs of Vital Signs/I&O Vital Signs Date Time Temp Pulse Resp B/P B/P Pulse O2 O2 Flow FiO2 Mean Ox Delivery Rate 11/29 1406 97.9 83 20 120/72 97 Nasal 2.0L Cannula 11/29 0941 96 Nasal 2.0L Cannula 11/29 0654 97.8 75 28 110/42 93 Nasal 2.0L Cannula 11/29 0000 95 Nasal 2.0L Cannula 11/28 2221 97.7 72 16 106/62 95 Nasal 2.0L Cannula 11/28 2041 95 Nasal 2.0L Cannula Intake & Output 11/29 1600 11/29 0800 11/29 0000 Intake Total 240 480 Output Total 600 1150 890 Balance -600 -910 -410 Intake, Oral 240 480 Number 0 Bowel Movements Output, Urine 600 1150 890 Physical Exam General Appearance: Alert, Oriented X3, Cooperative Cardiovascular: Normal S1, Normal S2 Lungs: Clear to Auscultation Current Medications: Current Medications Sig/Lacey Start time Last Medication Dose Route Stop Time Status Admin Albuterol Sulfate 3 ML BID 11/28 2200 AC 11/29 INH 0936 Albuterol Sulfate 3 ML TID 11/26 2200 DC 11/28 INH 0756 Aspirin Buffered 81 MG DAILY 11/28 1003 AC 11/29 PO 1055 Atorvastatin Calcium 80 MG 1700 11/26 2200 AC 11/28 PO 1624 Clopidogrel Bisulfate 75 MG DAILY 11/27 1000 AC 11/29 PO 1055 Ferrous Sulfate 325 MG TID 11/28 1007 AC 11/29 PO 1054 Ipratropium [place] 2.5 ML BID 11/28 2200 AC 11/29 INH 0936 Ipratropium [place] 2.5 ML TID 11/26 2200 DC 11/28 INH 0756 Ipratropium [place] 2.5 ML Q6P PRN 11/26 1700 AC INH Pantoprazole Sodium 40 MG BID 11/28 2200 AC 11/29 IV 1054 Senna 187 MG AT BEDTIME PRN 11/26 1845 AC 11/27 PO 2157 Sodium Chloride 1 SPRAY TID PRN 11/26 1700 AC [place] Last 24 Hrs of Lab/Edilberto Results Last 24 Hrs of Labs/Mics: Laboratory Tests 11/29/17 0626: Anion Gap 6, Estimated GFR > 60, BUN/Creatinine Ratio 12.2, CBC w Diff NO MAN DIFF REQ, RBC 3.23 L, MCV 83.5, MCH 26.7 L, RDW 19.9 H, MPV 8.3, Gran % 83.9 H, Lymphocytes % 8.7 L, Monocytes % 6.4, Eosinophils % 0.9, Basophils % 0.1, Absolute Granulocytes 6.3, Absolute Lymphocytes 0.7 L, Absolute Monocytes 0.5, Absolute Eosinophils 0.1, Absolute Basophils 0, PUBS MCHC 32.0 L Assessment/Plan Assessment: Mr Merritt is pleasant 82 yo m with past medical history significant for hypertension, dyslipidemia and recent PCI who is brought in by ambulance from [facility] on 11/26/2017 after the patient was found to have a low H &H (hgb 3.2) with progressively worsening fatigue. He was admitted to the ICU for further management and monitoring #Microcytic anemia most likely 2/2 acute blood loss The patient had previously refused EGD/colonoscopy when initially seen by GI-Dr. Candelario 11/02/17, at his previous admission. Patient reports he has no previous EGD or colonoscopy. At the time he was severely anemic and tranfused. He was readmitted 11/26/17, with worsening H/H 3.3/10.4, BUN/Cr ratio 47:1, and guaiac positive stools. Antiplatelet agents were continued in view of recent HARPREET. After agreeing to a EGD, patient was initially reluctant to have a dual colonoscopy done but patient later agreed to it. Colonoscopy was deferred to a later date because patient had not been bowel prepped. On 11/28/17 he had an EGD with biopsies performed by GI-Dr. 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 * CTE with po Volumen & IV contrast later today, to better assess gastric antrum & to rule out potential metastatic disease * Protonix IV BID * H/H daily. Maintain H/H >8 * Guiac all stools * GI recommendations appreciated * CT ABD/Pelvis to r/o visceral mass * Start Ferrous TID #Severe hypotension, bilateral LE edema with recent PCI s/p LAD occlusion At [facility] he underwent PCI with Synergy HARPREET after it was found that the patient has a 95% occlusion of LAD. His admission here was complicated with respiratory acidosis with septic shock requiring intubation. He was extubated after 2 days. * Cardiology recommendations appreciated * Continue leg elevation above heart * Strict I&O * Daily weights * give IV Lasix if needed debi in setting of transfusion #Patient required 2LNC on admission but his O2 sats remains > 95% * Discontinue oxygen supplementation #Leukocytosis most likely reactive in the setting of severe anemia * Hold off antibiotics * Monitor white count #Diet NPO for CTE resume clear liquids after the scan #DVT prophylaxis ALP #Code status Full code Problem List: 1. Acute renal failure Pain Ratin Pain Location: none Pain Goal: Pain 4 or less Pain Plan: prn Tomorrow's Labs & Rationales: cbc bep
--- NOTE | 2017-11-29 13:29 | PN- Pulmonary ---
Subjective HPI/Critical Care Issues: Relatively stable on route to CT mild wheezing and recent cxr and ct abd reviewed Objective Current Medications: Current Medications Sig/Lacey Start time Last Medication Dose Route Stop Time Status Admin Albuterol Sulfate 3 ML BID 11/28 2200 AC 11/29 INH 0936 Albuterol Sulfate 3 ML TID 11/26 2200 DC 11/28 INH 0756 Aspirin Buffered 81 MG DAILY 11/28 1003 AC 11/29 PO 1055 Atorvastatin Calcium 80 MG 1700 11/26 2200 AC 11/28 PO 1624 Clopidogrel Bisulfate 75 MG DAILY 11/27 1000 AC 11/29 PO 1055 Ferrous Sulfate 325 MG TID 11/28 1007 AC 11/29 PO 1054 Ipratropium [place] 2.5 ML BID 11/28 2200 AC 11/29 INH 0936 Ipratropium [place] 2.5 ML TID 11/26 2200 DC 11/28 INH 0756 Ipratropium [place] 2.5 ML Q6P PRN 11/26 1700 AC INH Pantoprazole Sodium 40 MG BID 11/28 2200 AC 11/29 IV 1054 Senna 187 MG AT BEDTIME PRN 11/26 1845 AC 11/27 PO 2157 Sodium Chloride 1 SPRAY TID PRN 11/26 1700 AC [place] Vital Signs & I&O Last 24 Hrs of Vitals and I&O: Vital Signs Date Time Temp Pulse Resp B/P B/P Pulse O2 O2 Flow FiO2 Mean Ox Delivery Rate 11/29 0941 96 Nasal 2.0L Cannula 11/29 0654 97.8 75 28 110/42 93 Nasal 2.0L Cannula 11/29 0000 95 Nasal 2.0L Cannula 11/28 2221 97.7 72 16 106/62 95 Nasal 2.0L Cannula 11/28 2041 95 Nasal 2.0L Cannula 11/28 1600 Nasal 2.0L Cannula 11/28 1442 98.0 72 16 110/60 98 Nasal 2.0L Cannula Intake & Output 11/29 1600 11/29 0800 11/29 0000 Intake Total 240 480 Output Total 1150 890 Balance -910 -410 Intake, Oral 240 480 Number 0 Bowel Movements Output, Urine 1150 890 Impression/Plan Impression/Plan Impression/Plan: 11/27/17: *EGD WITH BIOPSY (& CYTOLOGY BRUSHINGS)- Impression: 1. 5 cm x 6 cm ulcerated, friable, irregular, necrotic antral lesion, tethered towards the lesser curvature/incisura, enveloping the pylorus, with mechanical gastric outlet obstruction. Cytology brushings, followed by 7 biopsies: ( Specimen A- rule out gastric Ca, rule out lymphoma, rule out severe peptic ulcer disease). Unable to locate pylorus or inspect duodenum. 2. Severely limited views of the proximal stomach, secondary to retained food. 11/04/17: ECHOCARDIOGRAM- Normal size left ventricle. Mild concentric left ventricular hypertrophy. Segmental wall motion abnormalities as described above. Overall left ventricular systolic function appeared moderately hypokinetic with an estimated ejection fraction of 35%. Cannot exclude apical thrombus. Abnormal relaxation filling pattern of the left ventricle for age (stage 1 diastolic dysfunction). Normal right ventricular size and function. Normal right atrial size. Mild left atrial dilatation. Mild mitral regurgitation. Mild tricuspid regurgitation. No . Moderate pulmonary hypertension. Mild pulmonic regurgitation. Small pericardial effusion. Dilated inferior vena cava. CT abd 11/28/17: CT ABDOMEN AND PELVIS WITHOUT CONTRAST- (*personally reviewed with Dr. Hogue, of [facility])- 1. No acute findings along the gastrointestinal tract compared to 11/04/2017. No evidence of bowel perforation or abscess. Underdistended gastric antrum limiting exam. No exophytic gastric mass. Normal SB, LB, AP. Scattered diverticulosis coli, without diverticulitis. No free air. trace free fluid at paracolic gutters. No adenopathy. 2. Anasarca with persistent small B/L pleural effusions, soft tissue edema and trace fluid along paracolic gutters. Bibasilar atelectasis with LLL consolidation. 3. Gallbladder contains calculi and iodinated contrast material. The contrast is probably due to a recent ERCP procedure. Mild GB wall edema due to anasarca. No dilated ducts. Normal pancreas. (No recent ERCP done!- probable incidental "milk of calcium," per radiology). 4. Bibasilar atelectasis/consolidation, worse in the left lower lobe compared to 11/04/2017. 5. Three-vessel coronary ASHD. ASHD aorta without AAA. No retroperitoneal bleed. 6. DJD. General Appearance: well developed/nourished, no apparent distress, alert, awake , comfortable Head: atraumatic, normal appearance Ears, Nose, Throat: normal pharynx, normal ENT inspection, hearing grossly normal Neck: normal inspection, supple, full range of motion Respiratory: normal breath sounds, chest non-tender, no respiratory distress, lungs clear Cardiovascular: regular rate/rhythm Gastrointestinal: normal bowel sounds, soft, non-tender, no organomegaly Extremities: 1+ BLE pitting edema Pt with sever cad with recent HARPREET LAD with cardiogenic shock with resp failure who was intubated for hypercarbia with shock, INitial ef was 20 percent and increased to 39 post [employer], and was intubated and extubated in 72 hrs Now here with Treated Severe Symptomatic anemia - pt has had sig anemia before his stent ( hgb was 6 grams), Now has a large gastric mass with prob pyloric obstruction REcent [employer] to lad with shock and resp failure, stable Sig ischemic Cardiomyopathy Recent hypercarbic resp failure with pna and chf and effusions Anemia improved after transfusion and pt unfortunately has prob sig small oozing from the tumor with DAPT which he absoultely needs due to recent HARPREET to LAD Mild dyspnea with prob fluid overload with mild evidence of chronic lung disease REC Cont prbc transusion if hemoglobin is less than 8 grams NEeds DAPT per Cardio/ cardio and GI to decide further plans to see if pt would benefit from any other intervention, ie CABG etc - cardio and gi with primary team to decide Cardio and gi following and follow their rec Watch for pulm edema Lasix prn cont statin Keep mag more than 2 and potassium more than 4 mechanical dvt prophylaxis nebs prn Imaging per gi will follow prn call for issues
[2017-11-29 14:06] VITALS: BP 120/72
--- NOTE | 2017-11-29 15:34 | CT SCAN REPORT ---
EXAMINATION: CT ENTEROGRAPHY (ABDOMEN AND PELVIS) WITH CONTRAST CLINICAL INFORMATION: GI bleeding, gastric outlet obstruction. COMPARISON: CT abdomen and pelvis 12/06/2016 and 11/04/2017 and 11/28/2017. TECHNIQUE: Oral VoLumen was administered per protocol (1350 mL). 95 mL of Optiray 350 was administered intravenously without adverse effect. Coronal and sagittal and MIP coronal reformatted images were obtained. DLP: 404 mGy-cm. FINDINGS: GASTROINTESTINAL TRACT: STOMACH: The stomach is distended with fluid. There is mild thickening of the gastric antral wall. The pylorus is mildly thickened but a discrete mass is not clearly appreciated. There are small gastrohepatic, perigastric/anterior peripancreatic lymph nodes (image 90, image 97, image 100 and image 121 series 2). The largest lymph node is adjacent to the antropyloric region of the stomach (image 100 series 2) measuring 1.3 x 1.2 cm. SMALL INTESTINE: Fairly well distended and normal in appearance. LARGE INTESTINE: Moderate stool is seen in the right colon and rectum. The cecum is located in the right upper quadrant. No thickened bowel loops are seen. The appendix is not confidently visualized. No inflammatory changes are demonstrated. No abnormal enhancement of the vasa recta. No abdominal abscess or fistulous tract demonstrated. ADDITIONAL FINDINGS: The heart demonstrates coronary artery calcification. Small bilateral pleural effusions are seen with dependent atelectasis. Mild ground-glass opacities in the right middle lobe and lingula. Small volume ascites is seen around the liver. The liver is of normal size and attenuation without focal lesions nor intrahepatic biliary ductal dilation. The gallbladder is contracted and contains a large fundal gallstone. No gallbladder wall thickening or pericholecystic fluid. The spleen, pancreas, adrenal glands are unremarkable. Both kidneys are of normal size and attenuation without hydronephrosis or nephrolithiasis. Following the administration of IV contrast, prompt symmetric nephrograms are displayed. No retroperitoneal lymphadenopathy. No peritoneal masses are seen. There is no pelvic free fluid. The urinary bladder is unremarkable. There is neither pelvic nor inguinal lymphadenopathy. BONE WINDOWS: Multilevel degenerative changes in the lumbar spine. IMPRESSION: 1. Mildly distended stomach with mild symmetric thickening of the pylorus which is nonspecific for inflammatory or other etiologies. A discrete ulceration or focal mass is not seen. Small adjacent lymph nodes are seen measuring up to 1.3 cm in size. These could potentially be evaluated with endoscopic ultrasound. 2. Cholelithiasis without manifestations of cholecystitis. 3. Trace ascites.
--- NOTE | 2017-11-29 16:23 | RADIOLOGY REPORT ---
EXAMINATION: XR CHEST CLINICAL INFORMATION: Pulmonary edema COMPARISON: 11/28/2017 chest x-ray TECHNIQUE: 2 views of the chest were obtained. FINDINGS: There is mild to moderate enlargement of the cardiac silhouette. There is pulmonary venous congestion. Pulmonary interstitial infiltrate at the lung bases can represent pulmonary interstitial edema. There are opacities at the lung bases causing obscuration of bilateral diaphragmatic borders. Small bilateral pleural effusions are present. No pneumothorax. IMPRESSION: Cardiomegaly, pulmonary venous congestion and pulmonary interstitial edema. The findings are slightly more prominent as compared to 11/28/2017 chest x-ray at 1:09 PM. Small bilateral pleural effusions and opacities at the lung bases which likely represent atelectatic changes. Superimposed pneumonia is not excluded.
[2017-11-29 18:09] VITALS: BP 120/70
[2017-11-29 22:21] VITALS: BP 122/60
[2017-11-30 06:44] VITALS: BP 140/50
--- NOTE | 2017-11-30 08:24 | PN- Housestaff ---
Jesus ERICKSON,[facility] 11/30/17 0823: Subjective Follow-up For: Microcytic anemia, unknown etiology Tele-Events Since Last Visit: NSR with heart rate 80-87. No overnight events. Subjective: Patient was seen and examined at bedside. He reports feeling better. He was able to walk around with physical therapy without any difficulty. He offers no complaints. Review of Systems Constitutional: Reports: no symptoms. Objective Last 24 Hrs of Vital Signs/I&O Vital Signs Date Time Temp Pulse Resp B/P B/P Pulse O2 O2 Flow FiO2 Mean Ox Delivery Rate 11/30 1000 97 Nasal 1.0L Cannula 11/30 0800 96 Nasal 1.0L Cannula 11/30 0644 98.4 86 20 140/50 92 Nasal 1.0L Cannula 11/30 0000 Nasal 1.0L Cannula 11/29 2221 98.3 70 18 122/60 96 Nasal 1.0L Cannula 11/29 1840 97 Nasal 2.0L Cannula 11/29 1809 98.6 89 18 120/70 96 Nasal 2.0L Cannula 11/29 1600 Nasal 2.0L Cannula 11/29 1406 97.9 83 20 120/72 97 Nasal 2.0L Cannula Intake & Output 11/30 1600 11/30 0800 11/30 0000 Intake Total 120 800 Output Total 450 1200 Balance -450 -1080 800 Intake, Oral 120 800 Number 0 1 Bowel Movements Output, Urine 450 1200 Patient 185 lb Weight Physical Exam General Appearance: Alert, Oriented X3, Cooperative, No Acute Distress Skin: No Rashes, No Breakdown Skin Temp/Moisture Exam: Warm/Dry Sepsis Skin Exam (color): Normal for Ethnicity HEENT: Atraumatic Cardiovascular: Normal S1, Normal S2, No Murmurs Lungs: Clear to Auscultation, Normal Air Movement Abdomen: Soft, No Tenderness Neurological: Normal Speech Extremities: No Edema Assessment/Plan Assessment: Mr Merritt is pleasant 82 yo m with past medical history significant for hypertension, dyslipidemia and recent PCI who is brought in by ambulance from [facility] on 11/26/2017 after the patient was found to have a low H &H (hgb 3.2) with progressively worsening fatigue. He was admitted to the ICU for further management and monitoring #Microcytic anemia most likely 2/2 acute blood loss The patient had previously refused EGD/colonoscopy when initially seen by GI-Dr. Candelario 11/02/17, at his previous admission. Patient reports he has no previous EGD or colonoscopy. At the time he was severely anemic and tranfused. He was readmitted 11/26/17, with worsening H/H 3.3/10.4, BUN/Cr ratio 47:1, and guaiac positive stools. Antiplatelet agents were continued in view of recent HARPREET. After agreeing to a EGD, patient was initially reluctant to have a dual colonoscopy done but patient later agreed to it. Colonoscopy was deferred to a later date because patient had not been bowel prepped. On 11/28/17 he had an EGD with biopsies performed by GI-Dr. 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 * CTE with po Volumen & IV contrast: Mildly distended stomach with mild symmetric thickening of the antral wall & pylorus, which is nonspecific (see full report) * Protonix PO BID * H/H daily. Maintain H/H >8 * Guiac all stools * stable from a GI standpoint. * CT ABD/Pelvis to r/o visceral mass * Continue Ferrous TID #Severe hypotension, bilateral LE edema with recent PCI s/p LAD occlusion At [facility] he underwent PCI with Synergy HARPREET after it was found that the patient has a 95% occlusion of LAD. His admission here was complicated with respiratory acidosis with septic shock requiring intubation. He was extubated after 2 days. * Cardiology recommendations appreciated * Continue leg elevation above heart * Strict I&O * Daily weights * started metoprolol XL 25mg (1/3 of home dose) * give IV Lasix if needed debi in setting of transfusion #Patient required 2LNC on admission, he is currently on 1L * continue oxygen supplementation as needed. Will wean off as tolerated. #Leukocytosis most likely reactive in the setting of severe anemia /resolved * Hold off antibiotics * Monitor white count #Heart healthy diet. #DVT prophylaxis ALP #Code status Full code Problem List: 1. Malnutrition Pain Ratin Pain Location: none Pain Goal: Remain pain free Pain Plan: none Tomorrow's Labs & Rationales: CBC, BEP Davion ERICKSON,Reji 11/30/17 1229: Attending MD Review Statement Attending Statement Attending MD Statement: examined this patient, discuss w/resident/PA/JAVA ENGINEER, agreed w/resident/PA/JAVA ENGINEER, reviewed EMR data (avail), discussed with nursing, discussed with case mgmt, amended to note Attending Assessment/Plan: Patient is a very pleasant gentleman sitting comfortably in his chair not in any acute distress. Reports no issues overnight. No events noted on telemetry monitoring. No issues reported by nursing staff. He is tolerating his diet and is eager to be advanced. Patient remains afebrile and hemodynamically stable. Hemoglobin level is stable. Serum chemistries only significant for mild hyponatremia. On examination her lungs are clear bilaterally. Abdomen is soft and nontender. She has no peripheral edema. Recommendations: -Advanced a heart healthy diet as recommended by the GI service. -Follow-up pathology results from gastric biopsies. -Referred to GI service patient will need further evaluation with endoscopic ultrasound upon discharge. -Mobilize patient. -Cardiology follow-up appreciated. Resume beta-kortney therapy. Monitor input and output closely.
[2017-11-30 08:42] LABS: ABSOLUTE BASOPHIL COUNT 0 /CUMM (0.0-0.2); ABSOLUTE EOSINOPHIL COUNT 0.1 /CUMM (0.0-0.7); ABSOLUTE GRANULOCYTE CT 6.8 /CUMM (1.4-6.5); ABSOLUTE LYMPH COUNT 0.8 /CUMM (1.2-3.4); ABSOLUTE MONOCYTE COUNT 0.5 /CUMM (0.10-0.60); BASOPHIL % 0.1 % (0.0-2.0); EOSINOPHIL % 1.2 % (0-5); GRANULOCYTE % 82.6 % (42.2-75.2); HEMATOCRIT 27.3 % (42-52); MEAN CORPUSCULAR HGB 26.8 PG (27.0-31.0); MEAN CORPUSCULAR HGB CONC 32.2 G/DL (33.0-37.0); MEAN CORPUSCULAR VOLUME 83.2 FL (80.0-94.0); MEAN PLATELET VOLUME 8.4 FL (7.4-10.4); PLATELET COUNT 152 /CUMM (130-400); RBC DISTRIBUTION WIDTH 19.6 % (11.5-14.5); RED BLOOD CELL CT 3.28 /CUMM (4.70-6.10); WHITE BLOOD CELL COUNT 8.2 /CUMM (4.8-10.8)
--- NOTE | 2017-11-30 09:59 | PN- Gastroenterology ---
Assessment/Plan Assessment/Recommendations: 82 y/o male, HTN, HLD, hx CHF, ASHD, post recent NSTEMI 11/05/17, requiring drug eluting cardiac stent at [facility] per Dr. Villarreal, at that time, on ASA & Plavix ( details of cardiac cath & coronary anatomy initially unavailable-> subsequently found to be 95% proximal LAD lesion, txd with Synergy stent, per my d/w Dr. Villarreal & Dr. Bolaños). The patient was seen by Dr. Candelario in GI consultation 02/14, after being admitted to [facility] 10/31/17 with complaints of worsening lower extremity edema, hypoNa, fatigue, & CHF exacerbation in the setting of new microcytic anemia. He got Lasix for the swelling with improvement, and then felt better. He was intermittently hypoxic & hypotensive then, requiring right IJ TLC. *At that time, he refused any endoscopic workup, despite being made aware of the risk of an occult GI malignancy. He reportedly was OB-negative then. He was transfused a total of 3 units PRBC that admission, for H/H 06/22 with MCV 63 & low ferritin. At that time, he denied any GERD, odynophagia, dysphagia, nausea, vomiting, early satiety, abdominal pain, hematemesis, melena, rectal bleeding, diarrhea, constipation, obstipation, tenesmus, change in stool caliber, weight loss, or change in appetite. He was not on any NSAIDS. He had a history of EVELIN & past hx alpha Strep bacteremia in 12/2016, due to L2-L3/L3-L4 osteomyelitis, txd with 6 weeks Ampicillin. *He had never had a baseline screening colonoscopy prior to the anemia, nor an EGD. He never followed up with Dr. Candelario as an outpatient. The patient had a normal troponin on 10/31/17, which bumped up to 12.7 & he was transferred to [facility] on 11/05/17 for subsequent drug-eluting cardiac stent later that day. He was txd with broad spectrum antibiotics at [place] prior to his transfer (Vanco/Fortaz), switched to Ceftriaxone, although his hypotension, leukocytosis, tachypnea & tachycardia then were felt to be due to an acute KY, rather than sepsis. There was no definite infiltrate then, & his positive E. Coli UC was felt to be a contaminant, per ID. The patient was convalescing at [facility] and had labs there by his PMD, revealing severe anemia (H/H 3.2/10.3), prompting him to be sent in to the [place] ER, where he arrived 11/26/17 at 12:43 p.m. Upon arrival, BP 80/38, P 118, R 20, T 97, O2 sat RA 99%. His BP improved to low normal after IVF & PRBC. At the time of my GI consult, he was in the midst of his 2nd unit PRBC & was adimitted to the ICU. *His GI ROS from above and below remained negative. He denied any melena, but his stools were intermittently dark on Fe. He denied any CP, but noted OCNNELL & fatigue. He denied any SOB at rest, LOC, syncope, or palpitations. He denied any fevers, chills, acute back pain, sx of UTI, or URI. He denied any previous abdominal surgery. *He adamantly continued to refuse any invasive GI workup, although he was A & O x 3. He claimed that he made his own medical decisions, but that if he were incapacitated, 2 of his 3 children were POA (his son, Edu Merritt, & his dtr, Delia Dillon). *He had brown, OB+ stool on exam in the ER, per the PA, Gina Delcid. The patient recently D/C cigars. He denied any cigarettes, EtOH, or illicit drugs. He denied any FHx of GI disease, GI Ca, or inherited liver disease. There is no history of abdominal trauma or AAA. 12/05/16: IPEP/SPEP- without monoclonal gammopathy (c/w acute phase rx). 10/31/17: borderline elevated T4 11.9, nl TT3 1.05, nl TSH 1.26, Fe 13, TIBC 483 , *Fe sat 2%, *ferritin 12.3, B12 597, folate 8.8. 11/26/17: Admission labs- WBC 13.6 (87% gran/12 gran Ab), H/H 3.3/10.4, MCV 74.6 , RDW 27.2, PLT 214, PT 14.4, INR 1.38, PTT 25, glucose 119, BUN/Cr 52/1.1, GFR > 60, Na 136, K 4.1, HCO3 27, AG 10, lactate 2.7, Ca2+ 8.3, albumin 2.8, globulin 2.3, TBil 0.3, alk phos 88, AST 17, ALT 24, troponin 0.04, CK < 20, BNP 3000. 11/26/17: Fe 29, TIBC 319, Fe sat 9.1%, ferritin 22.5. 11/26/17: U/A- clear yellow, 1.020, 6.0, 3-5 WBC, rare hyaline cast, few granular cast, few bacteria, micro- otherwise negative; negative nitrite, trace esterase 11/04/17: CT ABD & PELVIS W/O IV CONTRAS; CT CHEST WO IV CONTRAST- Small right greater than trace left bilateral pleural effusions with associated airspace disease. Cholelithiasis without evidence of cholecystitis. Residual contrast material present within the collecting system. Sigmoid diverticulosis without evidence of diverticulitis. Moderate to large amount stool within the rectum. 11/04/17: ECHOCARDIOGRAM- Normal size left ventricle. Mild concentric left ventricular hypertrophy. Segmental wall motion abnormalities as described above. Overall left ventricular systolic function appeared moderately hypokinetic with an estimated ejection fraction of 35%. Cannot exclude apical thrombus. Abnormal relaxation filling pattern of the left ventricle for age (stage 1 diastolic dysfunction). Normal right ventricular size and function. Normal right atrial size. Mild left atrial dilatation. Mild mitral regurgitation. Mild tricuspid regurgitation. No . Moderate pulmonary hypertension. Mild pulmonic regurgitation. Small pericardial effusion. Dilated inferior vena cava. 11/26/17: EKG- NSR @ 75, borderline LAD, borderline prolonged QT interval, indeterminate age anteroseptal KY, occasional unifocal PVC (without significant change from EKG of 11/05/17). 11/26/17: XR PORTABLE CHEST- Low lung volumes. Continued bilateral lower lobe atelectasis. Deviation of the trachea to the right at the thoracic inlet is caused by the dilated thoracic aorta. *The patient clearly has iron deficiency anemia with OB positive stool. He recently had 11/05/17: NSTEMI & drug-eluting Synergy stent placed in proximal LAD then, which was 95% occluded. The patient is at very high risk for reocclusion and repeat KY if his antiplatelet agents are stopped at this point. This was discussed with the patient in detail. His elevated BUN/Cr ratio of 47:1 on admission was noted, favoring UGI etiology. Uncertain if UGI vs. LGI source ( benign vs. malignant). Recent CT was without retroperitoneal bleed or AAA. Doubt malabsorption. The patient had never had a baseline colonoscopy or EGD, as he repeatedly refused these, initially with Dr. Candelario on 11/02/17. He was still refusing these at the time of my 11/26/17: GI consult, as well. The patient is at higher risk for colonoscopy than EGD, a few weeks post NSTEMI. According to the medical housestaff, the patient then agreed to an EGD after I had left the ICU. I returned to the ICU this p.m. to speak with the patient at length again. The risks and benefits of EGD/colonoscopy were again discussed with the patient by myself in great detail. He is agreeable to EGD, but not to colonoscopy at present. He was told that even if the EGD shows some pathology, he should have a baseline outpatient colonoscopy in view of the severe Fe deficiency anemia. If the EGD is negative, I would advise an inpatient baseline colonoscopy, as the patient allows. If both EGD and colonoscopy are negative, an outpatient PillCam should be entertained. Ideally, I would like the patient to be adequately transfused preoperatively, to minimize any associated risk. The risks and benefits of EGD were discussed with the patient in detail & informed consent for this was obtained. 11/26/17: peak troponin .05 (3 sets neg) 11/27/17: glu 103, BUN/Cr 38/1.0, GFR > 60, Na 136, K 4.1, HCO3 31, AG 5, Mg 2.4 , Ca 8.0, albumin 2.6, TBil 0.9, AST 17, ALT 23 11/27/17: 1:42 p.m.- WBC 10.9, H/H 7.8/23.5 (after 4u PRBC), PLT 146 *As of 11/27/17, the patient remained hemodynamically stable and afebrile, in NSR in the ICU, with O2 sat 2L 98%. The patient had received a total of 5u PRBC to date, most recently at 3:49 p.m. on 11/27/17. He initially refused all GI endoscopic testing, then later agreed to EGD. Earlier on 11/27/17, he verbally agreed to colonoscopy as well, but it was too late to give him the bowel prep (potential aspiration at EGD), and so we will await the results of the EGD. The risks and benefits of eventual colonoscopy were discussed with the patient, and informed consent for colonoscopy was obtained from him, timing to be determined by clinical course. He remained on an IV Protonix drip. He remained on ASA 81 mg daily & Plavix. He had not yet had a bowel movement on 11/27/17, and denied any melena, rectal bleeding, or hematemesis. He denied any chest pain or shortness of breath. He denied any abdominal pain. He was NPO for EGD. ICU & cardiology notes appreciated. 11/27/17: *EGD WITH BIOPSY (& CYTOLOGY BRUSHINGS)- Impression: 1. 5 cm x 6 cm ulcerated, friable, irregular, necrotic antral lesion, tethered towards the lesser curvature/incisura, enveloping the pylorus, with mechanical gastric outlet obstruction. Cytology brushings, followed by 7 biopsies: ( Specimen A- rule out gastric Ca, rule out lymphoma, rule out severe peptic ulcer disease). Unable to locate pylorus or inspect duodenum. 2. Severely limited views of the proximal stomach, secondary to retained food. 11/28/17: WBC 8.5, H/H 8.4/25.5, PLT 133, glu 97, BUN/Cr 23/0.9, GFR > 60, Na 137, K 3.8, HCO3 32, AG 5, Mg 2.3, PO4 3.5, Ca 7.9, albumin 2.3, TBil 0.6, AST 16, ALT 24. *As of 11/28/17, the patient has received a total of 5u PRBC to date this admission. Hgb was stabilizing & BUN dropped. He remained on ASA 81 mg daily & Plavix, post 11/05/17: HARPREET of LAD. He remained on a Protonix drip & was NPO, awaiting CTE. His BP was now in the normal range. He was not tachycardic. He remained afebrile , with O2 sat 2L- 95%. He denied any hematemesis, nausea, vomiting, early satiety, melena, rectal bleeding, abdominal pain, CP, or SOB. He was hungry. *I requested a CTE (i.e.- CT with IV contrast & po Volumen), but for some reason , only a non-contrast CT AP was obtained on 11/28/17 by the medical housestaff! 11/28/17: CT ABDOMEN AND PELVIS WITHOUT CONTRAST- (*personally reviewed with Dr. Hogue, of [facility])- 1. No acute findings along the gastrointestinal tract compared to 11/04/2017. No evidence of bowel perforation or abscess. Underdistended gastric antrum limiting exam. No exophytic gastric mass. Normal SB, LB, AP. Scattered diverticulosis coli, without diverticulitis. No free air. trace free fluid at paracolic gutters. No adenopathy. 2. Anasarca with persistent small B/L pleural effusions, soft tissue edema and trace fluid along paracolic gutters. Bibasilar atelectasis with LLL consolidation. 3. Gallbladder contains calculi and iodinated contrast material. The contrast is probably due to a recent ERCP procedure. Mild GB wall edema due to anasarca. No dilated ducts. Normal pancreas. (No recent ERCP done!- probable incidental "milk of calcium," per radiology). 4. Bibasilar atelectasis/consolidation, worse in the left lower lobe compared to 11/04/2017. 5. Three-vessel coronary ASHD. ASHD aorta without AAA. No retroperitoneal bleed. 6. DJD. 11/28/17: XR PORTABLE CHEST- The constellation of findings is most consistent with COPD exacerbation, although the exam is limited by the patient's hypoinflation which can simulate these findings. Recommend repeat examination with PA and lateral imaging with full inspiratory effort for more specific and sensitive evaluation of the lung marshall. 11/29/17: WBC 7.5, H/H 8.6/27, PLT 141, BUN/Cr 11/0.9, GFR > 60, Na 141, K 3.7, HCO3 33, AG 6. *As of 11/29/17, the patient was hemodynamically stable and afebrile, with O2 sat 2L 96%. CM: NSR with occasional unifocal PVC. He was transferred from the ICU to telemetry on 11/28/17. He had received a total of 5u PRBC to date this admission. His Hgb had stabilized & his BUN had dropped. He remained on IV Protonix 40 mg BID. His baby ASA was changed to Ecotrin 81 mg po daily & he remained on Plavix. FeSO4 325 mg po TID was added. He was receiving TRC. He was not yet ambulatory. He was tolerating clears po. He denied any early satiety, despite the 11/27/17: EGD findings. He denied any overt GI bleeding, hematemesis, or melena. There was no abdominal pain, nausea, vomiting, CP, SOB, or palpitations. (*Upon my review of the 11/28/17: CT AP without contrast with Dr. Hogue, after giving him additional history, there was retained food in the stomach & suggestion of a distal stomach mass effect; *to be better defined by CTE). 11/29/17: XRY-CHEST XRAY, TWO VIEWS- Cardiomegaly, pulmonary venous congestion and pulmonary interstitial edema. The findings are slightly more prominent as compared to 11/28/2017 chest x-ray at 1: 09 PM. Small bilateral pleural effusions and opacities at the lung bases which likely represent atelectatic changes. Superimposed pneumonia is not excluded. 11/29/17: *CT ENTEROGRAPHY (ABDOMEN AND PELVIS) WITH IV/PO (VOLUMEN) CONTRAST- 1. Mildly distended stomach with mild symmetric thickening of the antral wall & pylorus, which is nonspecific for inflammatory or other etiologies. A discrete ulceration or focal mass is not seen. Small adjacent lymph nodes are seen measuring up to 1.3 cm in size. *These could potentially be evaluated with endoscopic ultrasound. Normal SB. Moderate stool in right colon and rectum. Cecum is in RUQ. AP not seen (intact by history). 2. Cholelithiasis, without manifestations of cholecystitis. No dilated ducts. Normal liver & pancreas. 3. Trace perihepatic ascites. 4. 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 5. Small bilateral pleural effusions with bibasilar atelectasis. Mild ground- glass opacities in the RML & lingula. 11/30/17: WBC 8.2, H/H 8.8/27.3, PLT 152, BUN/Cr 6/0.7, GFR > 60, Na 135, K 3.9, HCO3 33, AG 4 *As of 11/30/17, the patient remained hemodynamically stable & afebrile, with O2 sat 1L nc 96%. CM: NSR with occasional unifocal PVC. He had not required any additional blood transfusions since 11/27/17. His Hgb & BUN remained stable. He was still on Protonix 40 mg IB BID, along with Ecotirn 81 mg daily, Plavix, FeSO4 325 mg po TID, Senna, & Colace. Miralax 17g daily was added. He was hungry and tolerating clears po. His O2 was being tapered. He was using a rolling walker with physical therapy. He had a brown bowel movement last p.m., essentially OB negative, without fresh blood or melena. He denied any nausea, vomiting, hematemesis, abdominal pain, CP, or SOB. Surprisingly, he remained without early satiety. *SUGGEST: *Advance to a heart healthy diet as tolerated, with aspiration precautions. * Nutrition consult for supplements. *Await 11/27/17: gastric antral cytology brushings and biopsies. *May need outpatient EUS, after reviewing the pathology results. *Keep Hgb > 8 (hx ASHD/NSTEMI). *Check CBC daily for now. May need prophylactic Lasix with further transfusions, with history of CHF. Supplemental O2 as needed (taper O2 as tolerated). *Switch Protonix 40 mg IV Q12h to Protonix 40 mg po BID, 1/2 hr before breakfast & supper (no reported interaction with Plavix, as opposed to other PPI). Carefully continue Ecotrin 81 mg daily & Plavix for now, in view of 11/05/17: HARPREET to LAD. DVT prophylaxis with mechanical ALPS. Physical therapy to mobilize patient. No NSAIDs. *Based on the above EGD findings, will defer baseline colonoscopy, PillCam, and/or a celiac panel for now. *Continue FeSO4 repletion 325 mg po TID. *Continue Colace, Senna, & Miralax 17g po daily. The above findings were again discussed with the patient, & previously with his son/POA, Edu Merritt ([phone]). The critical nature of the patient's illness and the severe limitations in workup and treatment were discussed, keeping in mind the recent 11/05/17: NSTEMI and HARPREET of LAD, as the patient is now committed to long-term aspirin and Plavix. Furthermore, he is not a good surgical candidate, and there may be nutritional issues, depending on the severity of the mechanical gastric outlet obstruction. I briefly discussed the option [facility] with the patient and his son, Edu , on 11/27/17, although I am not certain what they may do differently there (* aside from perhaps conversion of HARPREET LAD to a formal CABG, if GI bleeding on ASA /Plavix remains problematic). The patient's family will discuss this, and get back to his current physicians. The patien's son/POA, Edu Merritt, was given my office number. *Further GI recommendations to follow, depending on clinical course and cytology/pathology results (*which may take some time to come back). *If stable, will sign off from GI perspective in a.m. & will follow-up with patient as outpatient, after the 11/27/17: EGD antral cytology brushings & biopsies are reviewed.The above was again discussed with the medical house staff in great detail & with Dr. Ricardo. Problem List: 1. Iron deficiency anemia 2. GI bleed 3. Antral ulcer 4. Malnutrition 5. Hypotension 6. ASHD (arteriosclerotic heart disease) 7. CHF (congestive heart failure) Subjective Subjective: 11/29/17: XRY-CHEST XRAY, TWO VIEWS- Cardiomegaly, pulmonary venous congestion and pulmonary interstitial edema. The findings are slightly more prominent as compared to 11/28/2017 chest x-ray at 1: 09 PM. Small bilateral pleural effusions and opacities at the lung bases which likely represent atelectatic changes. Superimposed pneumonia is not excluded. 11/29/17: *CT ENTEROGRAPHY (ABDOMEN AND PELVIS) WITH IV/PO (VOLUMEN) CONTRAST- 1. Mildly distended stomach with mild symmetric thickening of the antral wall & pylorus, which is nonspecific for inflammatory or other etiologies. A discrete ulceration or focal mass is not seen. Small adjacent lymph nodes are seen measuring up to 1.3 cm in size. *These could potentially be evaluated with endoscopic ultrasound. Normal SB. Moderate stool in right colon and rectum. Cecum is in RUQ. AP not seen (intact by history). 2. Cholelithiasis, without manifestations of cholecystitis. No dilated ducts. Normal liver & pancreas. 3. Trace perihepatic ascites. 4. 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 5. Small bilateral pleural effusions with bibasilar atelectasis. Mild ground- glass opacities in the RML & lingula. 11/30/17: WBC 8.2, H/H 8.8/27.3, PLT 152, BUN/Cr 6/0.7, GFR > 60, Na 135, K 3.9, HCO3 33, AG 4 *As of 11/30/17, the patient remained hemodynamically stable & afebrile, with O2 sat 1L nc 96%. CM: NSR with occasional unifocal PVC. He had not required any additional blood transfusions since 11/27/17. His Hgb & BUN remained stable. He was still on Protonix 40 mg IB BID, along with Ecotirn 81 mg daily, Plavix, FeSO4 325 mg po TID, Senna, & Colace. Miralax 17g daily was added. He was hungry and tolerating clears po. His O2 was being tapered. He was using a rolling walker with physical therapy. He had a brown bowel movement last p.m., essentially OB negative, without fresh blood or melena. He denied any nausea, vomiting, hematemesis, abdominal pain, CP, or SOB. Surprisingly, he remained without early satiety. Review of Systems: Full 14 point ROS otherwise noncontributory and as above. Review of Systems Constitutional: Denies: chills, diaphoresis, fever, malaise, weakness, unexplained weight loss. EENTM: Denies: blurred vision, double vision, visual changes, eye pain, eye drainage, eye tearing, icterus, ear discharge, ear pain, ear redness, hearing changes, nasal congestion, epistaxis, nasal pain, throat pain, throat swelling, mouth pain, tooth pain. Cardiovascular: Reports: peripheral edema- improved. Denies: chest pain, edema, orthopena, palpitations, syncope. Respiratory: Reports: short of breath (CONNELL)- improving. Denies: cough, hemoptysis, orthopnea, sputum production, stridor, wheezing. GI: Denies: abdominal pain, bloating, constipation, diarrhea, distention, bowel incontinence, melena, nausea, bloody stool, changes in stool, vomiting, steatorrhea. Genitourinary: Denies: discharge, dysuria, frequency, hematuria, hesitation, nocturia, pain, urgency. Musculoskeletal: Denies: back pain, gout, joint pain, joint swelling, muscle pain, muscle stiffness, neck pain. Skin: Denies: cysts, change in skin color, change in hair/nails, dryness, erythema, jaundice, lesions, lymphangitis, lumps, moles, rash. Neurological/Psychological: Denies: anxiety, ataxia, cognitive dysfunction, confusion, depressed, dementia, emotional problems, headache, numbness, paresthesia, pre-existing deficit, petit mal seizures, tingling, tremors, tonic-clonic seizures, unable to move lower ext , unable to move upper ext, weakness. Hematologic/Endocrine: Denies: bruising, bleeding, polyuria, polydipsia. Immunologic/Allergic: Denies: splenectomy, HIV/AIDS, lymphadenopathy. All Other Systems: Reviewed and Negative Objective Vital Signs and I&Os Vital Signs Date Time Temp Pulse Resp B/P B/P Pulse O2 O2 Flow FiO2 Mean Ox Delivery Rate 11/30 0800 96 Nasal 1.0L Cannula 11/30 0644 98.4 86 20 140/50 92 Nasal 1.0L Cannula 11/30 0000 Nasal 1.0L Cannula 11/29 2221 98.3 70 18 122/60 96 Nasal 1.0L Cannula 11/29 1840 97 Nasal 2.0L Cannula 11/29 1809 98.6 89 18 120/70 96 Nasal 2.0L Cannula 11/29 1600 Nasal 2.0L Cannula 11/29 1406 97.9 83 20 120/72 97 Nasal 2.0L Cannula Intake & Output 11/30 1600 11/30 0400 11/29 1600 11/29 0400 11/28 1600 11/28 0400 Intake Total 120 800 840 480 916 670 Output Total 1650 2350 890 1125 0 Balance -1530 800 -1510 -410 -209 670 Intake, Blood 350 Product Intake, IV 116 80 Intake, Oral 120 800 840 480 800 240 Number 0 1 0 0 0 Bowel Movements Output, Urine 1650 2350 890 1125 0 Patient 185 lb Weight Physical Exam: Well-developed, slightly malnourished male, in no apparent distress, feeling stronger post transfusions. Sclera anicteric. Conjunctiva pink. Oropharynx clear. No oral thrush. No aphthous ulcers. Poor dentition. There is no adenopathy, thyromegaly, JVD, or HJR. No peripheral stigmata of inflammatory bowel disease or chronic liver disease on exam. No spiders on the anterior chest wall. No gynecomastia. No CVA tenderness. Lungs: clear to A&P. No wheezing, rales, or definite rhonchi. Slight decreased BS at the bases B/L. Heart exam: regular rate rhythm, S1 and S2, with soft I/ systolic murmur. Abdominal exam: normal bowel sounds, soft belly, nontender, without guarding or rebound. No mass. No organomegaly. Negative Holt sign. No fluid shift. No pulsatile mass. No epigastric bruit. Digital rectal exam (11/26/17: per TELMA Lopez, in [facility])- brown stool, OB-positive. Extremities: without cyanosis or clubbing. Trace pitting pedal edema LE B/L. No palpable cords. B/L ALPS. Mild DJD. No rash. No palmar erythema. No Dupuytren's contractures. Distal pulses 1+ bilaterally. DTRs 2+ bilaterally. Alert and oriented x 3. Left handed. Motor 5 /5 B/L. No tremor. No asterixis. Current Medications: Current Medications Sig/Lacey Start time Last Medication Dose Route Stop Time Status Admin Albuterol Sulfate 3 ML BID 11/28 2200 AC 11/30 INH 1000 Aspirin Buffered 81 MG DAILY 11/28 1003 AC 11/30 PO 0829 Atorvastatin Calcium 80 MG 1700 11/26 2200 AC 11/29 PO 1727 Clopidogrel Bisulfate 75 MG DAILY 11/27 1000 AC 11/30 PO 0830 Docusate Sodium 100 MG DAILY 11/29 1614 AC 11/30 PO 0830 Ferrous Sulfate 325 MG TID 11/28 1007 AC 11/30 PO 0830 Ipratropium Freedom 2.5 ML BID 11/28 2200 AC 11/30 INH 1000 Ipratropium Freedom 2.5 ML Q6P PRN 11/26 1700 AC INH Pantoprazole Sodium 40 MG BID 11/280 AC 11/30 IV 0830 Polyethylene Glycol 17 GM DAILY 11/29 1614 AC 11/30 PO 0830 Senna 187 MG AT BEDTIME PRN 11/26 1845 AC 11/27 PO 2157 Sodium Chloride 1 SPRAY TID PRN 11/26 1700 AC [place] Results Pertinent Lab Results: Laboratory Tests 11/30 11/29 0710 0626 Chemistry Sodium (137 - 145 mmol/L) 135 L 140 Potassium (3.5 - 5.1 mmol/L) 3.9 3.7 Chloride (98 - 107 mmol/L) 99 101 Carbon Dioxide (22 - 30 mmol/L) 33 H 33 H Anion Gap (5 - 16) 4 L 6 BUN (9 - 20 mg/dL) 6 L 11 Creatinine (0.7 - 1.2 mg/dL) 0.7 0.9 Estimated GFR (>60 ml/min) > 60 > 60 BUN/Creatinine Ratio (7 - 25 %) 8.6 12.2 Hematology CBC w Diff NO MAN DIFF REQ NO MAN DIFF REQ WBC (4.8 - 10.8 /CUMM) 8.2 7.5 RBC (4.70 - 6.10 /CUMM) 3.28 L 3.23 L Hgb (14.0 - 18.0 G/DL) 8.8 L 8.6 L Hct (42 - 52 %) 27.3 L 27.0 L MCV (80.0 - 94.0 FL) 83.2 83.5 MCH (27.0 - 31.0 PG) 26.8 L 26.7 L RDW (11.5 - 14.5 %) 19.6 H 19.9 H Plt Count (130 - 400 /CUMM) 152 141 MPV (7.4 - 10.4 FL) 8.4 8.3 Gran % (42.2 - 75.2 %) 82.6 H 83.9 H Lymphocytes % (20.5 - 51.1 %) 9.7 L 8.7 L Monocytes % (1.7 - 9.3 %) 6.4 6.4 Eosinophils % (0 - 5 %) 1.2 0.9 Basophils % (0.0 - 2.0 %) 0.1 0.1 Absolute Granulocytes (1.4 - 6.5 /CUMM) 6.8 H 6.3 Absolute Lymphocytes (1.2 - 3.4 /CUMM) 0.8 L 0.7 L Absolute Monocytes (0.10 - 0.60 /CUMM) 0.5 0.5 Absolute Eosinophils (0.0 - 0.7 /CUMM) 0.1 0.1 Absolute Basophils (0.0 - 0.2 /CUMM) 0 0 PUBS MCHC (33.0 - 37.0 G/DL) 32.2 L 32.0 L 11/28 11/27 0338 1342 Chemistry Sodium (137 - 145 mmol/L) 137 Potassium (3.5 - 5.1 mmol/L) 3.8 Chloride (98 - 107 mmol/L) 101 Carbon Dioxide (22 - 30 mmol/L) 32 H Anion Gap (5 - 16) 5 BUN (9 - 20 mg/dL) 23 H Creatinine (0.7 - 1.2 mg/dL) 0.9 Estimated GFR (>60 ml/min) > 60 Glucose (65 - 99 mg/dL) 97 Calcium (8.4 - 10.2 mg/dL) 7.9 L Phosphorus (2.5 - 4.5 mg/dL) 3.5 Magnesium (1.6 - 2.3 mg/dL) 2.3 Total Bilirubin (0.2 - 1.3 mg/dL) 0.6 AST (17 - 59 U/L) 16 L ALT (21 - 72 U/L) 24 Albumin (3.5 - 5.0 g/dL) 2.3 L Hematology CBC w Diff NO MAN DIFF REQ NO MAN DIFF REQ WBC (4.8 - 10.8 /CUMM) 8.5 10.9 H RBC (4.70 - 6.10 /CUMM) 3.09 L 2.90 L Hgb (14.0 - 18.0 G/DL) 8.4 L 7.8 L Hct (42 - 52 %) 25.5 L 23.5 L MCV (80.0 - 94.0 FL) 82.6 81.1 MCH (27.0 - 31.0 PG) 27.1 26.9 L RDW (11.5 - 14.5 %) 19.3 H 19.2 H Plt Count (130 - 400 /CUMM) 133 146 MPV (7.4 - 10.4 FL) 8.4 8.3 Gran % (42.2 - 75.2 %) 81.9 H 87.1 H Lymphocytes % (20.5 - 51.1 %) 9.8 L 7.1 L Monocytes % (1.7 - 9.3 %) 7.7 5.5 Eosinophils % (0 - 5 %) 0.5 0.2 Basophils % (0.0 - 2.0 %) 0.1 0.1 Absolute Granulocytes (1.4 - 6.5 /CUMM) 7.0 H 9.5 H Absolute Lymphocytes (1.2 - 3.4 /CUMM) 0.8 L 0.8 L Absolute Monocytes (0.10 - 0.60 /CUMM) 0.7 H 0.6 Absolute Eosinophils (0.0 - 0.7 /CUMM) 0 0 Absolute Basophils (0.0 - 0.2 /CUMM) 0 0 PUBS MCHC (33.0 - 37.0 G/DL) 32.8 L 33.1 Imaging/Other Studies: 11/04/17: CT ABD & PELVIS W/O IV CONTRAST; CT CHEST WO IV CONTRAST- Small right greater than trace left bilateral pleural effusions with associated airspace disease. Cholelithiasis without evidence of cholecystitis. Residual contrast material present within the collecting system. Sigmoid diverticulosis without evidence of diverticulitis. Moderate to large amount stool within the rectum. 11/04/17: ECHOCARDIOGRAM- Normal size left ventricle. Mild concentric left ventricular hypertrophy. Segmental wall motion abnormalities as described above. Overall left ventricular systolic function appeared moderately hypokinetic with an estimated ejection fraction of 35%. Cannot exclude apical thrombus. Abnormal relaxation filling pattern of the left ventricle for age (stage 1 diastolic dysfunction). Normal right ventricular size and function. Normal right atrial size. Mild left atrial dilatation. Mild mitral regurgitation. Mild tricuspid regurgitation. No . Moderate pulmonary hypertension. Mild pulmonic regurgitation. Small pericardial effusion. Dilated inferior vena cava. 11/26/17: EKG- NSR @ 75, borderline LAD, borderline prolonged QT interval, indeterminate age anteroseptal [place], occasional unifocal PVC (without significant change from EKG of 11/05/17). 11/26/17: XR PORTABLE CHEST- Low lung volumes. Continued bilateral lower lobe atelectasis. Deviation of the trachea to the right at the thoracic inlet is caused by the dilated thoracic aorta. 11/27/17: *EGD WITH BIOPSY (& CYTOLOGY BRUSHINGS)- Impression: 1. 5 cm x 6 cm ulcerated, friable, irregular, necrotic antral lesion, tethered towards the lesser curvature/incisura, enveloping the pylorus, with mechanical gastric outlet obstruction. Cytology brushings, followed by 7 biopsies: ( Specimen A- rule out gastric Ca, rule out lymphoma, rule out severe peptic ulcer disease). Unable to locate pylorus or inspect duodenum. 2. Severely limited views of the proximal stomach, secondary to retained food. *I requested a CTE (i.e.- CT with IV contrast & po Volumen), but for some reason , only a non-contrast CT AP was obtained on 11/28/17 by the medical housestaff! 11/28/17: CT ABDOMEN AND PELVIS WITHOUT CONTRAST- (*personally reviewed with Dr. Hogue, of [facility])- 1. No acute findings along the gastrointestinal tract compared to 11/04/2017. No evidence of bowel perforation or abscess. Underdistended gastric antrum limiting exam. No exophytic gastric mass. Normal SB, LB, AP. Scattered diverticulosis coli, without diverticulitis. No free air. trace free fluid at paracolic gutters. No adenopathy. 2. Anasarca with persistent small B/L pleural effusions, soft tissue edema and trace fluid along paracolic gutters. Bibasilar atelectasis with LLL consolidation. 3. Gallbladder contains calculi and iodinated contrast material. The contrast is probably due to a recent ERCP procedure. Mild GB wall edema due to anasarca. No dilated ducts. Normal pancreas. (No recent ERCP done!- probable incidental "milk of calcium," per radiology). 4. Bibasilar atelectasis/consolidation, worse in the left lower lobe compared to 11/04/2017. 5. Three-vessel coronary ASHD. ASHD aorta without AAA. No retroperitoneal bleed. 6. DJD. 11/28/17: XR PORTABLE CHEST- The constellation of findings is most consistent with COPD exacerbation, although the exam is limited by the patient's hypoinflation which can simulate these findings. Recommend repeat examination with PA and lateral imaging with full inspiratory effort for more specific and sensitive evaluation of the lung marshall. 11/29/17: XRY-CHEST XRAY, TWO VIEWS- Cardiomegaly, pulmonary venous congestion and pulmonary interstitial edema. The findings are slightly more prominent as compared to 11/28/2017 chest x-ray at 1: 09 PM. Small bilateral pleural effusions and opacities at the lung bases which likely represent atelectatic changes. Superimposed pneumonia is not excluded. 11/29/17: *CT ENTEROGRAPHY (ABDOMEN AND PELVIS) WITH IV/PO (VOLUMEN) CONTRAST- 1. Mildly distended stomach with mild symmetric thickening of the antral wall & pylorus, which is nonspecific for inflammatory or other etiologies. A discrete ulceration or focal mass is not seen. Small adjacent lymph nodes are seen measuring up to 1.3 cm in size. *These could potentially be evaluated with endoscopic ultrasound. Normal SB. Moderate stool in right colon and rectum. Cecum is in RUQ. AP not seen (intact by history). 2. Cholelithiasis, without manifestations of cholecystitis. No dilated ducts. Normal liver & pancreas. 3. Trace perihepatic ascites. 4. 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 5. Small bilateral pleural effusions with bibasilar atelectasis. Mild ground- glass opacities in the RML & lingula.
--- NOTE | 2017-11-30 12:17 | PN- Cardiology ---
Subjective Subjective: Feels well today. No chest pain or dyspnea. Had a large bowel movement yesterday with no hematochezia. Objective Vital Signs and I&Os Vital Signs Date Time Temp Pulse Resp B/P B/P Pulse O2 O2 Flow FiO2 Mean Ox Delivery Rate 11/30 1000 97 Nasal 1.0L Cannula 11/30 0800 96 Nasal 1.0L Cannula 11/30 0644 98.4 86 20 140/50 92 Nasal 1.0L Cannula 11/30 0000 Nasal 1.0L Cannula 11/29 2221 98.3 70 18 122/60 96 Nasal 1.0L Cannula 11/29 1840 97 Nasal 2.0L Cannula 11/29 1809 98.6 89 18 120/70 96 Nasal 2.0L Cannula 11/29 1600 Nasal 2.0L Cannula 11/29 1406 97.9 83 20 120/72 97 Nasal 2.0L Cannula Intake & Output 11/30 1600 11/30 0800 11/30 0000 11/29 1600 11/29 0800 11/29 0000 Intake Total 120 800 600 240 480 Output Total 450 1200 1200 1150 890 Balance -450 -1080 800 -600 -910 -410 Intake, Oral 120 800 600 240 480 Number 0 1 0 Bowel Movements Output, Urine 450 1200 1200 1150 890 Patient 185 lb Weight Physical Exam: General: no apparent distress. Alert. Eyes: No obvious scleral icterus. HEENT: No jugular venous distention or abnormal jugular venous pulsations. Cardiovascular: Normal intensity S1/S2. Regular. Respiratory: No rales or rhonchi Abdomen: no guarding or rebound tenderness. Musculoskeletal: No clubbing or cyanosis noted Skin: No obvious rashes or ulcerations. Current Medications: Current Medications Sig/Lacey Start time Last Medication Dose Route Stop Time Status Admin Albuterol Sulfate 3 ML BID 11/28 220 AC 11/30 INH 1000 Aspirin Buffered 81 MG DAILY 11/28 1003 AC 11/30 PO 0829 Atorvastatin Calcium 80 MG 1700 11/260 AC 11/29 PO 1727 Clopidogrel Bisulfate 75 MG DAILY 11/27 1000 AC 11/30 PO 0830 Docusate Sodium 100 MG DAILY 11/29 1614 AC 11/30 PO 0830 Ferrous Sulfate 325 MG TID 11/28 1007 AC 11/30 PO 0830 Ipratropium [place] 2.5 ML BID 11/28 2200 AC 11/30 INH 1000 Ipratropium [place] 2.5 ML Q6P PRN 11/26 170 AC INH Omeprazole 40 MG BID 11/30 2200 AC PO Pantoprazole Sodium 40 MG BID 11/28 2200 DC 11/30 IV 0830 Polyethylene Glycol 17 GM DAILY 11/29 161 AC 11/30 PO 0830 Senna 187 MG AT BEDTIME PRN 11/26 1845 AC 11/27 PO 2157 Sodium Chloride 1 SPRAY TID PRN 11/26 170 AC [place] Results Last 48 Hrs of Labs/Mics: Laboratory Tests 11/30/17 0710: Anion Gap 4 L, Estimated GFR > 60, BUN/Creatinine Ratio 8.6, CBC w Diff NO MAN DIFF REQ, RBC 3.28 L, MCV 83.2, MCH 26.8 L, RDW 19.6 H, MPV 8.4, Gran % 82.6 H, Lymphocytes % 9.7 L, Monocytes % 6.4, Eosinophils % 1.2, Basophils % 0.1, Absolute Granulocytes 6.8 H, Absolute Lymphocytes 0.8 L, Absolute Monocytes 0.5, Absolute Eosinophils 0.1, Absolute Basophils 0, PUBS MCHC 32.2 L 11/29/17 0626: Anion Gap 6, Estimated GFR > 60, BUN/Creatinine Ratio 12.2, CBC w Diff NO MAN DIFF REQ, RBC 3.23 L, MCV 83.5, MCH 26.7 L, RDW 19.9 H, MPV 8.3, Gran % 83.9 H, Lymphocytes % 8.7 L, Monocytes % 6.4, Eosinophils % 0.9, Basophils % 0.1, Absolute Granulocytes 6.3, Absolute Lymphocytes 0.7 L, Absolute Monocytes 0.5, Absolute Eosinophils 0.1, Absolute Basophils 0, PUBS MCHC 32.0 L Recent Imaging Studies: Telemetry tracings were personally reviewed and show sinus rhythm CXR: Cardiomegaly, pulmonary venous congestion and pulmonary interstitial edema. The findings are slightly more prominent as compared to 11/28/2017 chest x-ray at 1:09 PM. Small bilateral pleural effusions and opacities at the lung bases which likely represent atelectatic changes. Superimposed pneumonia is not excluded. Assessment/Plan Assessment/Plan 1. Ischemic cardiomyopathy 2. Gastric mass/GI bleed 3. Recent drug-eluting stent to the LAD 4. History of hypertension/hyperlipidemia Feels well and remains hemodynamically stable. Hemoglobin is stable. Would aim to keep a negative fluid balance. Can likely start to resume anti-myopathic regimen carefully; would start Toprol-XL 25 mg by mouth daily today. Continue on dual antiplatelet therapy and high-dose statin therapy. Joe Fine MD [facility] Continue telemetry? Yes
[2017-11-30 14:32] VITALS: BP 116/58
[2017-12-01 06:00] VITALS: BP 110/58
[2017-12-01 08:18] LABS: ABSOLUTE BASOPHIL COUNT 0 /CUMM (0.0-0.2); ABSOLUTE EOSINOPHIL COUNT 0.1 /CUMM (0.0-0.7); ABSOLUTE GRANULOCYTE CT 6.9 /CUMM (1.4-6.5); ABSOLUTE LYMPH COUNT 0.7 /CUMM (1.2-3.4); ABSOLUTE MONOCYTE COUNT 0.5 /CUMM (0.10-0.60); BASOPHIL % 0.2 % (0.0-2.0); EOSINOPHIL % 1.5 % (0-5); MEAN CORPUSCULAR HGB 26.9 PG (27.0-31.0); MEAN CORPUSCULAR VOLUME 84.1 FL (80.0-94.0); MEAN PLATELET VOLUME 8.1 FL (7.4-10.4); PLATELET COUNT 153 /CUMM (130-400); RBC DISTRIBUTION WIDTH 19.1 % (11.5-14.5); RED BLOOD CELL CT 3.21 /CUMM (4.70-6.10); WHITE BLOOD CELL COUNT 8.3 /CUMM (4.8-10.8)
[2017-12-01 09:15] LABS: GRANULOCYTE % 83.9 % (42.2-75.2)
--- NOTE | 2017-12-01 09:27 | PN- Housestaff ---
Janny ERICKSON,Fe 12/01/17 0926: Subjective Follow-up For: Anemia Abdominal mass Tele-Events Since Last Visit: Sinus rhythm heart rate 85-94 no events Subjective: Patient seen and examined this morning. He complains of not having a bowel movement 4 days. He denies any nausea, vomiting, abdominal pain, overtly bloody stools. Review of Systems Constitutional: Reports: no symptoms. EENTM: Reports: no symptoms. Cardiovascular: Reports: no symptoms. Respiratory: Reports: no symptoms. Gastrointestinal: Reports: constipation. Genitourinary: Reports: no symptoms. Musculoskeletal: Reports: no symptoms. Skin: Reports: no symptoms. Neurological/Psychological: Reports: no symptoms. Hematologic/Endocrine: Reports: no symptoms. Immunologic/Allergic: Reports: no symptoms. Objective Last 24 Hrs of Vital Signs/I&O Vital Signs Date Time Temp Pulse Resp B/P B/P Pulse O2 O2 Flow FiO2 Mean Ox Delivery Rate 12/01 1934 91 Room Air Room Air 12/01 1835 68 138/62 12/01 1535 98.5 68 20 138/62 92 12/01 1013 94 Nasal 1.0L Cannula 12/01 0912 65 110/58 12/01 0900 Nasal 1.0L Cannula 12/01 0600 98.6 65 20 110/58 92 12/01 0100 92 Room Air 12/01 0000 92 Room Air Intake & Output 12/01 1600 12/01 0800 12/01 0000 Intake Total 500 300 450 Output Total 600 750 725 Balance -100 -450 -275 Intake, Oral 500 300 450 Number 0 Bowel Movements Output, Urine 600 750 725 Physical Exam General Appearance: Alert, Cooperative, No Acute Distress Skin: No Rashes Skin Temp/Moisture Exam: Warm/Dry Sepsis Skin Exam (color): Normal for Ethnicity HEENT: Atraumatic Cardiovascular: Regular Rate, Normal S1, Normal S2, No Murmurs Lungs: Clear to Auscultation, Normal Air Movement Abdomen: Normal Bowel Sounds, Soft, No Tenderness Neurological: Normal Speech Extremities: No Clubbing, No Edema Vascular: Normal Pulses, Pulses Symmetrical Current Medications: Current Medications Sig/Lacey Start time Last Medication Dose Route Stop Time Status Admin Albuterol Sulfate 3 ML BID 11/28 220 AC 12/01 INH 1929 Aspirin Buffered 81 MG DAILY 11/28 1003 AC 12/01 PO 0911 Atorvastatin Calcium 80 MG 1700 11/26 2200 AC 12/01 PO 1545 Bisacodyl 10 MG ONCE ONE 12/01 1430 DC 12/01 CO 12/01 1431 1544 Clopidogrel Bisulfate 75 MG DAILY 11/27 1000 AC 12/01 PO 0912 Docusate Sodium 100 MG DAILY 11/29 1614 AC 12/01 PO 0911 Ferrous Sulfate 325 MG TID 11/28 1007 AC 12/01 PO 1544 Ipratropium [place] 2.5 ML BID 11/28 2200 AC 12/01 INH 1929 Ipratropium [place] 2.5 ML Q6P PRN 11/26 1700 AC INH Lisinopril 2.5 MG DAILY 12/01 1709 AC 12/01 PO 1835 Metoprolol Succinate 25 MG DAILY 11/30 1226 AC 12/01 PO 0912 Omeprazole 40 MG BID 11/30 2200 DC 12/01 PO 0911 Pantoprazole Sodium 40 MG BID 12/01 1427 AC 12/01 IV 1544 Polyethylene Glycol 17 GM BID 12/01 2200 AC PO Polyethylene Glycol 17 GM DAILY 11/29 1614 DC 12/01 PO 0917 Senna 187 MG AT BEDTIME PRN 11/26 1845 AC 11/30 PO 2112 Sodium Chloride 1 SPRAY TID PRN 11/26 1700 AC [place] Last 24 Hrs of Lab/Edilberto Results Last 24 Hrs of Labs/Mics: Laboratory Tests 12/01/17 0650: Anion Gap 5, Estimated GFR > 60, BUN/Creatinine Ratio 6.3 L, CBC w Diff NO MAN DIFF REQ, RBC 3.21 L, MCV 84.1, MCH 26.9 L, RDW 19.1 H, MPV 8.1, Gran % 83.9 H, Lymphocytes % 8.6 L, Monocytes % 5.8, Eosinophils % 1.5, Basophils % 0.2, Absolute Granulocytes 6.9 H, Absolute Lymphocytes 0.7 L, Absolute Monocytes 0.5, Absolute Eosinophils 0.1, Absolute Basophils 0, PUBS MCHC 32.0 L Orders Stool Guaiac Testing: Positive Assessment/Plan Assessment: Mr Merritt is pleasant 82 yo m with past medical history significant for hypertension, dyslipidemia and recent PCI who is brought in by ambulance from [facility] on 11/26/2017 after the patient was found to have a low H &H (hgb 3.2) with progressively worsening fatigue. He was admitted to the ICU for further management and monitoring #Microcytic anemia most likely 2/2 acute blood loss The patient had previously refused EGD/colonoscopy when initially seen by GI-Dr. Candelario 11/02/17, at his previous admission. Patient reports he has no previous EGD or colonoscopy. At the time he was severely anemic and tranfused. He was readmitted 11/26/17, with worsening H/H 3.3/10.4, BUN/Cr ratio 47:1, and guaiac positive stools. Antiplatelet agents were continued in view of recent HARPREET. After agreeing to a EGD, patient was initially reluctant to have a dual colonoscopy done but patient later agreed to it. Colonoscopy was deferred to a later date because patient had not been bowel prepped. On 11/28/17 he had an EGD with biopsies performed by GI-Dr. 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 * CTE with po Volumen & IV contrast: Mildly distended stomach with mild symmetric thickening of the antral wall & pylorus, which is nonspecific (see full report) * Protonix 40 IV twice a day. Hospital does not have by mouth Protonix and we cannot give omeprazole as patient * H/H daily. Maintain H/H >8 * Guiac all stools * stable from a GI standpoint. * CT ABD/Pelvis to r/o visceral mass * Continue Ferrous TID * MiraLAX twice a day, Dulcolax suppository * Nutrition consult #Severe hypotension, bilateral LE edema with recent PCI s/p LAD occlusion At [facility] he underwent PCI with Synergy HARPREET after it was found that the patient has a 95% occlusion of LAD. His admission here was complicated with respiratory acidosis with septic shock requiring intubation. He was extubated after 2 days. * Cardiology recommendations appreciated * Continue leg elevation above heart * Strict I&O * Daily weights * started metoprolol XL 25mg (1/3 of home dose) * Patient is negative fluid balance, continue to hold diuretics * Start lisinopril 2.5 mg #Hypoxia * continue oxygen supplementation as needed. Will wean off as tolerated. #Leukocytosis most likely reactive in the setting of severe anemia /resolved * Hold off antibiotics * Monitor white count #Heart healthy diet. #DVT prophylaxis ALP #Code status Full code Problem List: 1. Antral ulcer 2. Malnutrition 3. Anemia Pain Ratin Pain Location: Abdomen Pain Goal: Pain 4 or less Pain Plan: Pathway Tomorrow's Labs & Rationales: CBC and BEP Reji Ricardo MD 12/01/17 1314: Attending MD Review Statement Attending Statement Attending MD Statement: examined this patient, discuss w/resident/PA/ANALOG IC DESIGN ENGINEER, agreed w/resident/PA/ANALOG IC DESIGN ENGINEER, reviewed EMR data (avail), discussed with nursing, discussed with case mgmt, amended to note Attending Assessment/Plan: Patient seen and examined. Resting comfortably not in any acute distress. Denies nausea vomiting. Denies abdominal pain. Tolerating his meals. Denies bloody stools. Blood pressure is stable. Saturation 94% on 1 L of oxygen. Hemoglobin level 8.6 today down from 8.8 yesterday however his hemoglobin was 8.62 days ago. On examination heart sounds are regular. Lungs are clear bilaterally. Abdomen soft, nontender. Recommendations: -H&H remains essentially stable. Continue dual antiplatelet therapy. -Awaiting pathology results of biopsy taken. -Cardiology follow-up appreciated. His beta-kortney was resumed yesterday. Patient appears to be maintaining a negative fluid balance of diuretic therapy. Continue to hold diuretics for now.
--- NOTE | 2017-12-01 13:20 | PN- Cardiology ---
Subjective Subjective: Feels well with no chest pain or dyspnea. Objective Vital Signs and I&Os Vital Signs Date Time Temp Pulse Resp B/P B/P Pulse O2 O2 Flow FiO2 Mean Ox Delivery Rate 12/01 1013 94 Nasal 1.0L Cannula 12/01 0912 65 110/58 12/01 0900 Nasal 1.0L Cannula 12/01 0600 98.6 65 20 110/58 92 12/01 0100 92 Room Air 12/01 0000 92 Room Air 11/30 1835 95 Nasal 1.0L Cannula 11/30 1641 84 146/60 11/30 1600 94 Nasal 1.0L Cannula 11/30 1432 98.2 74 18 116/58 96 Nasal 1.0L Cannula Intake & Output 12/01 1600 12/01 0800 12/01 0000 11/30 1600 11/30 0800 11/30 0000 Intake Total 300 450 120 800 Output Total 750 063 402 0722 Balance -450 -275 -850 -1080 800 Intake, Oral 300 450 120 800 Number 0 0 1 Bowel Movements Output, Urine 750 553 099 7548 Patient 185 lb Weight Physical Exam: General: no apparent distress. Alert. Eyes: No obvious scleral icterus. HEENT: No jugular venous distention or abnormal jugular venous pulsations. Cardiovascular: Normal intensity S1/S2. Regular. Respiratory: No rales or rhonchi Abdomen: no guarding or rebound tenderness. Musculoskeletal: No clubbing or cyanosis noted Skin: No obvious rashes or ulcerations. Current Medications: Current Medications Sig/Lacey Start time Last Medication Dose Route Stop Time Status Admin Albuterol Sulfate 3 ML BID 11/28 2200 AC 12/01 INH 1009 Aspirin Buffered 81 MG DAILY 11/28 1003 AC 12/01 PO 0911 Atorvastatin Calcium 80 MG 1700 11/26 2200 AC 11/30 PO 1638 Clopidogrel Bisulfate 75 MG DAILY 11/27 1000 AC 12/01 PO 0912 Docusate Sodium 100 MG DAILY 11/29 1614 AC 12/01 PO 0911 Ferrous Sulfate 325 MG TID 11/28 1007 AC 12/01 PO 0911 Ipratropium [place] 2.5 ML BID 11/28 2200 AC 12/01 INH 1009 Ipratropium [place] 2.5 ML Q6P PRN 11/26 1700 AC INH Metoprolol Succinate 25 MG DAILY 11/30 1226 AC 12/01 PO 0912 Omeprazole 40 MG BID 11/30 2200 AC 12/01 PO 0911 Polyethylene Glycol 17 GM DAILY 11/29 1614 AC 12/01 PO 0917 Senna 187 MG AT BEDTIME PRN 11/26 1845 AC 11/30 PO 2112 Sodium Chloride 1 SPRAY TID PRN 11/26 1700 AC [place] Results Last 48 Hrs of Labs/Mics: Laboratory Tests 12/01/17 0650: Anion Gap 5, Estimated GFR > 60, BUN/Creatinine Ratio 6.3 L, CBC w Diff NO MAN DIFF REQ, RBC 3.21 L, MCV 84.1, MCH 26.9 L, RDW 19.1 H, MPV 8.1, Gran % 83.9 H, Lymphocytes % 8.6 L, Monocytes % 5.8, Eosinophils % 1.5, Basophils % 0.2, Absolute Granulocytes 6.9 H, Absolute Lymphocytes 0.7 L, Absolute Monocytes 0.5, Absolute Eosinophils 0.1, Absolute Basophils 0, PUBS MCHC 32.0 L 11/30/17 0710: Anion Gap 4 L, Estimated GFR > 60, BUN/Creatinine Ratio 8.6, CBC w Diff NO MAN DIFF REQ, RBC 3.28 L, MCV 83.2, MCH 26.8 L, RDW 19.6 H, MPV 8.4, Gran % 82.6 H, Lymphocytes % 9.7 L, Monocytes % 6.4, Eosinophils % 1.2, Basophils % 0.1, Absolute Granulocytes 6.8 H, Absolute Lymphocytes 0.8 L, Absolute Monocytes 0.5, Absolute Eosinophils 0.1, Absolute Basophils 0, PUBS MCHC 32.2 L Recent Imaging Studies: Telemetry tracings were personally reviewed and shows sinus rhythm Assessment/Plan Assessment/Plan 1. Ischemic cardiomyopathy 2. Gastric mass/GI bleed 3. Recent drug-eluting stent to the LAD 4. History of hypertension/hyperlipidemia Feels well and remains hemodynamically stable. Continue on dual antiplatelet therapy. His blood pressure is tolerating the Toprol and if remains stable can resume his low-dose JASKARAN inhibitor. Continue on high-dose statin therapy. He appears to be maintaining a negative fluid balance. Joe Fine MD [facility] Continue telemetry? No
--- NOTE | 2017-12-01 13:33 | PN- Gastroenterology ---
Assessment/Plan Assessment/Recommendations: 82 y/o male, HTN, HLD, hx CHF, ASHD, post recent NSTEMI 11/05/17, requiring drug eluting cardiac stent at [facility] per Dr. Villarreal, at that time, on ASA & Plavix ( details of cardiac cath & coronary anatomy initially unavailable-> subsequently found to be 95% proximal LAD lesion, txd with Synergy stent, per my d/w Dr. Villarreal & Dr. Bolaños). The patient was seen by Dr. Candelario in GI consultation 02/14, after being admitted to [facility] 10/31/17 with complaints of worsening lower extremity edema, hypoNa, fatigue, & CHF exacerbation in the setting of new microcytic anemia. He got Lasix for the swelling with improvement, and then felt better. He was intermittently hypoxic & hypotensive then, requiring right IJ TLC. *At that time, he refused any endoscopic workup, despite being made aware of the risk of an occult GI malignancy. He reportedly was OB-negative then. He was transfused a total of 3 units PRBC that admission, for H/H 06/22 with MCV 63 & low ferritin. At that time, he denied any GERD, odynophagia, dysphagia, nausea, vomiting, early satiety, abdominal pain, hematemesis, melena, rectal bleeding, diarrhea, constipation, obstipation, tenesmus, change in stool caliber, weight loss, or change in appetite. He was not on any NSAIDS. He had a history of EVELIN & past hx alpha Strep bacteremia in 12/2016, due to L2-L3/L3-L4 osteomyelitis, txd with 6 weeks Ampicillin. *He had never had a baseline screening colonoscopy prior to the anemia, nor an EGD. He never followed up with Dr. Candelario as an outpatient. The patient had a normal troponin on 10/31/17, which bumped up to 12.7 & he was transferred to [facility] on 11/05/17 for subsequent drug-eluting cardiac stent later that day. He was txd with broad spectrum antibiotics at [facility] prior to his transfer (Vanco/Fortaz), switched to Ceftriaxone, although his hypotension, leukocytosis, tachypnea & tachycardia then were felt to be due to an acute IN, rather than sepsis. There was no definite infiltrate then, & his positive E. Coli UC was felt to be a contaminant, per ID. The patient was convalescing at [facility] and had labs there by his PMD, revealing severe anemia (H/H 3.2/10.3), prompting him to be sent in to the [facility] ER, where he arrived 11/26/17 at 12:43 p.m. Upon arrival, BP 80/38, P 118, R 20, T 97, O2 sat RA 99%. His BP improved to low normal after IVF & PRBC. At the time of my GI consult, he was in the midst of his 2nd unit PRBC & was adimitted to the ICU. *His GI ROS from above and below remained negative. He denied any melena, but his stools were intermittently dark on Fe. He denied any CP, but noted CONNELL & fatigue. He denied any SOB at rest, LOC, syncope, or palpitations. He denied any fevers, chills, acute back pain, sx of UTI, or URI. He denied any previous abdominal surgery. *He adamantly continued to refuse any invasive GI workup, although he was A & O x 3. He claimed that he made his own medical decisions, but that if he were incapacitated, 2 of his 3 children were POA (his son, Edu Merritt, & his dtr, Delia Dillon). *He had brown, OB+ stool on exam in the ER, per the PA, Gina Delcid. The patient recently D/C cigars. He denied any cigarettes, EtOH, or illicit drugs. He denied any FHx of GI disease, GI Ca, or inherited liver disease. There is no history of abdominal trauma or AAA. 12/05/16: IPEP/SPEP- without monoclonal gammopathy (c/w acute phase rx). 10/31/17: borderline elevated T4 11.9, nl TT3 1.05, nl TSH 1.26, Fe 13, TIBC 483 , *Fe sat 2%, *ferritin 12.3, B12 597, folate 8.8. 11/26/17: Admission labs- WBC 13.6 (87% gran/12 gran Ab), H/H 3.3/10.4, MCV 74.6 , RDW 27.2, PLT 214, PT 14.4, INR 1.38, PTT 25, glucose 119, BUN/Cr 52/1.1, GFR > 60, Na 136, K 4.1, HCO3 27, AG 10, lactate 2.7, Ca2+ 8.3, albumin 2.8, globulin 2.3, TBil 0.3, alk phos 88, AST 17, ALT 24, troponin 0.04, CK < 20, BNP 3000. 11/26/17: Fe 29, TIBC 319, Fe sat 9.1%, ferritin 22.5. 11/26/17: U/A- clear yellow, 1.020, 6.0, 3-5 WBC, rare hyaline cast, few granular cast, few bacteria, micro- otherwise negative; negative nitrite, trace esterase 11/04/17: CT ABD & PELVIS W/O IV CONTRAS; CT CHEST WO IV CONTRAST- Small right greater than trace left bilateral pleural effusions with associated airspace disease. Cholelithiasis without evidence of cholecystitis. Residual contrast material present within the collecting system. Sigmoid diverticulosis without evidence of diverticulitis. Moderate to large amount stool within the rectum. 11/04/17: ECHOCARDIOGRAM- Normal size left ventricle. Mild concentric left ventricular hypertrophy. Segmental wall motion abnormalities as described above. Overall left ventricular systolic function appeared moderately hypokinetic with an estimated ejection fraction of 35%. Cannot exclude apical thrombus. Abnormal relaxation filling pattern of the left ventricle for age (stage 1 diastolic dysfunction). Normal right ventricular size and function. Normal right atrial size. Mild left atrial dilatation. Mild mitral regurgitation. Mild tricuspid regurgitation. No . Moderate pulmonary hypertension. Mild pulmonic regurgitation. Small pericardial effusion. Dilated inferior vena cava. 11/26/17: EKG- NSR @ 75, borderline LAD, borderline prolonged QT interval, indeterminate age anteroseptal IN, occasional unifocal PVC (without significant change from EKG of 11/05/17). 11/26/17: XR PORTABLE CHEST- Low lung volumes. Continued bilateral lower lobe atelectasis. Deviation of the trachea to the right at the thoracic inlet is caused by the dilated thoracic aorta. *The patient clearly has iron deficiency anemia with OB positive stool. He recently had 11/05/17: NSTEMI & drug-eluting Synergy stent placed in proximal LAD then, which was 95% occluded. The patient is at very high risk for reocclusion and repeat IN if his antiplatelet agents are stopped at this point. This was discussed with the patient in detail. His elevated BUN/Cr ratio of 47:1 on admission was noted, favoring UGI etiology. Uncertain if UGI vs. LGI source ( benign vs. malignant). Recent CT was without retroperitoneal bleed or AAA. Doubt malabsorption. The patient had never had a baseline colonoscopy or EGD, as he repeatedly refused these, initially with Dr. Candelario on 11/02/17. He was still refusing these at the time of my 11/26/17: GI consult, as well. The patient is at higher risk for colonoscopy than EGD, a few weeks post NSTEMI. According to the medical housestaff, the patient then agreed to an EGD after I had left the ICU. I returned to the ICU this p.m. to speak with the patient at length again. The risks and benefits of EGD/colonoscopy were again discussed with the patient by myself in great detail. He is agreeable to EGD, but not to colonoscopy at present. He was told that even if the EGD shows some pathology, he should have a baseline outpatient colonoscopy in view of the severe Fe deficiency anemia. If the EGD is negative, I would advise an inpatient baseline colonoscopy, as the patient allows. If both EGD and colonoscopy are negative, an outpatient PillCam should be entertained. Ideally, I would like the patient to be adequately transfused preoperatively, to minimize any associated risk. The risks and benefits of EGD were discussed with the patient in detail & informed consent for this was obtained. 11/26/17: peak troponin .05 (3 sets neg) 11/27/17: glu 103, BUN/Cr 38/1.0, GFR > 60, Na 136, K 4.1, HCO3 31, AG 5, Mg 2.4 , Ca 8.0, albumin 2.6, TBil 0.9, AST 17, ALT 23 11/27/17: 1:42 p.m.- WBC 10.9, H/H 7.8/23.5 (after 4u PRBC), PLT 146 *As of 11/27/17, the patient remained hemodynamically stable and afebrile, in NSR in the ICU, with O2 sat 2L 98%. The patient had received a total of 5u PRBC to date, most recently at 3:49 p.m. on 11/27/17. He initially refused all GI endoscopic testing, then later agreed to EGD. Earlier on 11/27/17, he verbally agreed to colonoscopy as well, but it was too late to give him the bowel prep (potential aspiration at EGD), and so we will await the results of the EGD. The risks and benefits of eventual colonoscopy were discussed with the patient, and informed consent for colonoscopy was obtained from him, timing to be determined by clinical course. He remained on an IV Protonix drip. He remained on ASA 81 mg daily & Plavix. He had not yet had a bowel movement on 11/27/17, and denied any melena, rectal bleeding, or hematemesis. He denied any chest pain or shortness of breath. He denied any abdominal pain. He was NPO for EGD. ICU & cardiology notes appreciated. 11/27/17: *EGD WITH BIOPSY (& CYTOLOGY BRUSHINGS)- Impression: 1. 5 cm x 6 cm ulcerated, friable, irregular, necrotic antral lesion, tethered towards the lesser curvature/incisura, enveloping the pylorus, with mechanical gastric outlet obstruction. Cytology brushings, followed by 7 biopsies: ( Specimen A- rule out gastric Ca, rule out lymphoma, rule out severe peptic ulcer disease). Unable to locate pylorus or inspect duodenum. 2. Severely limited views of the proximal stomach, secondary to retained food. 11/28/17: WBC 8.5, H/H 8.4/25.5, PLT 133, glu 97, BUN/Cr 23/0.9, GFR > 60, Na 137, K 3.8, HCO3 32, AG 5, Mg 2.3, PO4 3.5, Ca 7.9, albumin 2.3, TBil 0.6, AST 16, ALT 24. *As of 11/28/17, the patient has received a total of 5u PRBC to date this admission. Hgb was stabilizing & BUN dropped. He remained on ASA 81 mg daily & Plavix, post 11/05/17: HARPREET of LAD. He remained on a Protonix drip & was NPO, awaiting CTE. His BP was now in the normal range. He was not tachycardic. He remained afebrile , with O2 sat 2L- 95%. He denied any hematemesis, nausea, vomiting, early satiety, melena, rectal bleeding, abdominal pain, CP, or SOB. He was hungry. *I requested a CTE (i.e.- CT with IV contrast & po Volumen), but for some reason , only a non-contrast CT AP was obtained on 11/28/17 by the medical housestaff! 11/28/17: CT ABDOMEN AND PELVIS WITHOUT CONTRAST- (*personally reviewed with Dr. Hogue, of [facility])- 1. No acute findings along the gastrointestinal tract compared to 11/04/2017. No evidence of bowel perforation or abscess. Underdistended gastric antrum limiting exam. No exophytic gastric mass. Normal SB, LB, AP. Scattered diverticulosis coli, without diverticulitis. No free air. trace free fluid at paracolic gutters. No adenopathy. 2. Anasarca with persistent small B/L pleural effusions, soft tissue edema and trace fluid along paracolic gutters. Bibasilar atelectasis with LLL consolidation. 3. Gallbladder contains calculi and iodinated contrast material. The contrast is probably due to a recent ERCP procedure. Mild GB wall edema due to anasarca. No dilated ducts. Normal pancreas. (No recent ERCP done!- probable incidental "milk of calcium," per radiology). 4. Bibasilar atelectasis/consolidation, worse in the left lower lobe compared to 11/04/2017. 5. Three-vessel coronary ASHD. ASHD aorta without AAA. No retroperitoneal bleed. 6. DJD. 11/28/17: XR PORTABLE CHEST- The constellation of findings is most consistent with COPD exacerbation, although the exam is limited by the patient's hypoinflation which can simulate these findings. Recommend repeat examination with PA and lateral imaging with full inspiratory effort for more specific and sensitive evaluation of the lung marshall. 11/29/17: WBC 7.5, H/H 8.6/27, PLT 141, BUN/Cr 11/0.9, GFR > 60, Na 141, K 3.7, HCO3 33, AG 6. *As of 11/29/17, the patient was hemodynamically stable and afebrile, with O2 sat 2L 96%. CM: NSR with occasional unifocal PVC. He was transferred from the ICU to telemetry on 11/28/17. He had received a total of 5u PRBC to date this admission. His Hgb had stabilized & his BUN had dropped. He remained on IV Protonix 40 mg BID. His baby ASA was changed to Ecotrin 81 mg po daily & he remained on Plavix. FeSO4 325 mg po TID was added. He was receiving TRC. He was not yet ambulatory. He was tolerating clears po. He denied any early satiety, despite the 11/27/17: EGD findings. He denied any overt GI bleeding, hematemesis, or melena. There was no abdominal pain, nausea, vomiting, CP, SOB, or palpitations. (*Upon my review of the 11/28/17: CT AP without contrast with Dr. Hogue, after giving him additional history, there was retained food in the stomach & suggestion of a distal stomach mass effect; *to be better defined by CTE). 11/29/17: XRY-CHEST XRAY, TWO VIEWS- Cardiomegaly, pulmonary venous congestion and pulmonary interstitial edema. The findings are slightly more prominent as compared to 11/28/2017 chest x-ray at 1: 09 PM. Small bilateral pleural effusions and opacities at the lung bases which likely represent atelectatic changes. Superimposed pneumonia is not excluded. 11/29/17: *CT ENTEROGRAPHY (ABDOMEN AND PELVIS) WITH IV/PO (VOLUMEN) CONTRAST- 1. Mildly distended stomach with mild symmetric thickening of the antral wall & pylorus, which is nonspecific for inflammatory or other etiologies. A discrete ulceration or focal mass is not seen. Small adjacent lymph nodes are seen measuring up to 1.3 cm in size. *These could potentially be evaluated with endoscopic ultrasound. Normal SB. Moderate stool in right colon and rectum. Cecum is in RUQ. AP not seen (intact by history). 2. Cholelithiasis, without manifestations of cholecystitis. No dilated ducts. Normal liver & pancreas. 3. Trace perihepatic ascites. 4. 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 5. Small bilateral pleural effusions with bibasilar atelectasis. Mild ground- glass opacities in the RML & lingula. 11/30/17: WBC 8.2, H/H 8.8/27.3, PLT 152, BUN/Cr 6/0.7, GFR > 60, Na 135, K 3.9, HCO3 33, AG 4 *As of 11/30/17, the patient remained hemodynamically stable & afebrile, with O2 sat 1L nc 96%. CM: NSR with occasional unifocal PVC. He had not required any additional blood transfusions since 11/27/17. His Hgb & BUN remained stable. He was still on Protonix 40 mg IB BID, along with Ecotirn 81 mg daily, Plavix, FeSO4 325 mg po TID, Senna, & Colace. Miralax 17g daily was added. He was hungry and tolerating clears po. His O2 was being tapered. He was using a rolling walker with physical therapy. He had a brown bowel movement last p.m., essentially OB negative, without fresh blood or melena. He denied any nausea, vomiting, hematemesis, abdominal pain, CP, or SOB. Surprisingly, he remained without early satiety. 12/01/17: WBC 8.3, H/H 8.6/27, PLT 153, BUN/Cr 5/0.8, GFR > 60, Na 138, K 3.7, HCO3 35, AG 5. *As of 12/01/17, the patient was hemodynamically stable & afebrile, with O2 sat 1L 94%. He was tolerating solid foods without difficulty. He denied any nausea, vomiting, abdominal pain, early satiety, hematemesis,or melena. He was mildly constipated on Fe. He denied any CP or SOB. He remained on dual ant-platelet therapy & high dose PPI. He was last transfused 11/27/17. Cardiology & medical notes appreciated. Telemetry was D/C per cardiology. The case was also discuused with the patient's dtr-in-law, Sergei Merritt at the bedside, per patient request ( I also had previously spoken with her , Edu Merritt, & they have my office number). *SUGGEST: *Continue heart healthy diet as tolerated, with aspiration precautions. * Nutrition consult for supplements. *Await 11/27/17: gastric antral cytology brushings and biopsies. *May need outpatient EUS, after reviewing the pathology results. *Keep Hgb > 8 (hx ASHD/NSTEMI). *Check CBC daily for now. May need prophylactic Lasix with further transfusions, with history of CHF. Supplemental O2 as needed (taper O2 as tolerated). *Switch Omeprazole 40 mg po BID to Protonix 40 mg po BID, 1/2 hr before breakfast & supper (no reported interaction with Plavix, as opposed to other PPI)-> d/w [facility]; po Protonix not available. Therefore, switch patient to IV Protonix 40 mg po BID & upon D/C, switch to Protonix 40 mg po BID. Carefully continue Ecotrin 81 mg daily & Plavix for now, in view of 11/05/17: HARPREET to LAD. DVT prophylaxis with mechanical ALPS. Physical therapy to mobilize patient. No NSAIDs. *Based on the above EGD findings, will defer baseline colonoscopy, PillCam, and/or a celiac panel for now. *Continue FeSO4 repletion 325 mg po TID. *Continue Colace, Senna, & increase Miralax to 17g po BID. *Add enemas as needed. The above findings were again discussed with the patient, & previously with his son/POA, Edu Merritt ). The critical nature of the patient's illness and the severe limitations in workup and treatment were discussed, keeping in mind the recent 11/05/17: NSTEMI and HARPREET of LAD, as the patient is now committed to long-term aspirin and Plavix. Furthermore, he is not a good surgical candidate, and there may be nutritional issues, depending on the severity of the mechanical gastric outlet obstruction. I briefly discussed the option of a potential transfer to [facility] with the patient and his son, Edu, on 11/27/17, although I am not certain what they may do differently there (*aside from perhaps conversion of HARPREET LAD to a formal CABG, if GI bleeding on ASA/Plavix remains problematic). The patient's family will discuss this, and get back to his current physicians. The patient's son/POA, Edu Merritt, was given my office number. *Further GI recommendations to follow, depending on clinical course and cytology/pathology results (*which may take some time to come back). Will sign off from GI perspective today & will follow-up with patient as outpatient, after the : EGD antral cytology brushings & biopsies are reviewed. The patient & his D-I -L, Sergei Shaina, have my office number. The above was again discussed with the medical house staff in great detail & previously with Dr. Ricardo. Problem List: 1. Iron deficiency anemia 2. GI bleed 3. Antral ulcer 4. Malnutrition 5. Hypotension 6. ASHD (arteriosclerotic heart disease) 7. CHF (congestive heart failure) Subjective Subjective: 12/01/17: WBC 8.3, H/H 8.6/27, PLT 153, BUN/Cr 5/0.8, GFR > 60, Na 138, K 3.7, HCO3 35, AG 5. *As of 12/01/17, the patient was hemodynamically stable & afebrile, with O2 sat 1L 94%. He was tolerating solid foods without difficulty. He denied any nausea, vomiting, abdominal pain, early satiety, hematemesis,or melena. He was mildly constipated on Fe. He denied any CP or SOB. He remained on dual ant-platelet therapy & high dose PPI. He was last transfused 11/27/17. Cardiology & medical notes appreciated. Telemetry was D/C per cardiology. The case was also discuused with the patient's dtr-in-law, Sergei Merritt at the bedside, per patient request ( I also had previously spoken with her , Edu Merritt, & they have my office number). Review of Systems: Full 14 point ROS otherwise noncontributory and as above. Review of Systems Constitutional: Denies: chills, diaphoresis, fever, malaise, weakness, unexplained weight loss. EENTM: Denies: blurred vision, double vision, visual changes, eye pain, eye drainage, eye tearing, icterus, ear discharge, ear pain, ear redness, hearing changes, nasal congestion, epistaxis, nasal pain, throat pain, throat swelling, mouth pain, tooth pain. Cardiovascular: Reports: peripheral edema- improved. Denies: chest pain, edema, orthopena, palpitations, syncope. Respiratory: Reports: short of breath (CONNELL)- improving. Denies: cough, hemoptysis, orthopnea, sputum production, stridor, wheezing. GI: Denies: abdominal pain, bloating, constipation, diarrhea, distention, bowel incontinence, melena, nausea, bloody stool, changes in stool, vomiting, steatorrhea. Genitourinary: Denies: discharge, dysuria, frequency, hematuria, hesitation, nocturia, pain, urgency. Musculoskeletal: Denies: back pain, gout, joint pain, joint swelling, muscle pain, muscle stiffness, neck pain. Skin: Denies: cysts, change in skin color, change in hair/nails, dryness, erythema, jaundice, lesions, lymphangitis, lumps, moles, rash. Neurological/Psychological: Denies: anxiety, ataxia, cognitive dysfunction, confusion, depressed, dementia, emotional problems, headache, numbness, paresthesia, pre-existing deficit, petit mal seizures, tingling, tremors, tonic-clonic seizures, unable to move lower ext , unable to move upper ext, weakness. Hematologic/Endocrine: Denies: bruising, bleeding, polyuria, polydipsia. Immunologic/Allergic: Denies: splenectomy, HIV/AIDS, lymphadenopathy. All Other Systems: Reviewed and Negative Objective Vital Signs and I&Os Vital Signs Date Time Temp Pulse Resp B/P B/P Pulse O2 O2 Flow FiO2 Mean Ox Delivery Rate 12/01 1013 94 Nasal 1.0L Cannula 12/01 0912 65 110/58 12/01 0900 Nasal 1.0L Cannula 12/01 0600 98.6 65 20 110/58 92 12/01 0100 92 Room Air 12/01 0000 92 Room Air 11/30 1835 95 Nasal 1.0L Cannula 11/30 1641 84 146/60 11/30 1600 94 Nasal 1.0L Cannula 11/30 1432 98.2 74 18 116/58 96 Nasal 1.0L Cannula Intake & Output 12/01 1600 12/01 0400 11/30 1600 11/30 0400 11/29 1600 11/29 0400 Intake Total 300 450 120 800 840 480 Output Total 940 302 5603 2350 890 Balance -450 -275 -1930 800 -1510 -410 Intake, Oral 300 450 120 800 840 480 Number 0 0 1 0 Bowel Movements Output, Urine 592 413 2751 2350 890 Patient 185 lb Weight Physical Exam: Well-developed, slightly malnourished male, in no apparent distress, feeling stronger post transfusions. Sclera anicteric. Conjunctiva pink. Oropharynx clear. No oral thrush. No aphthous ulcers. Poor dentition. There is no adenopathy, thyromegaly, JVD, or HJR. No peripheral stigmata of inflammatory bowel disease or chronic liver disease on exam. No spiders on the anterior chest wall. No gynecomastia. No CVA tenderness. Lungs: clear to A&P. No wheezing, rales, or definite rhonchi. Slight decreased BS at the bases B/L. Heart exam: regular rate rhythm, S1 and S2, with soft I/ systolic murmur. Abdominal exam: normal bowel sounds, soft belly, nontender, without guarding or rebound. No mass. No organomegaly. Negative Holt sign. No fluid shift. No pulsatile mass. No epigastric bruit. Digital rectal exam (11/26/17: per TELMA Lopez, in [facility])- brown stool, OB-positive. Extremities: without cyanosis or clubbing. Trace pitting pedal edema LE B/L. No palpable cords. B/L ALPS. Mild DJD. No rash. No palmar erythema. No Dupuytren's contractures. Distal pulses 1+ bilaterally. DTRs 2+ bilaterally. Alert and oriented x 3. Left handed. Motor 5 /5 B/L. No tremor. No asterixis. Current Medications: Current Medications Sig/Lacey Start time Last Medication Dose Route Stop Time Status Admin Albuterol Sulfate 3 ML BID 11/28 2200 AC 12/01 INH 1009 Aspirin Buffered 81 MG DAILY 11/28 1003 AC 12/01 PO 0911 Atorvastatin Calcium 80 MG 1700 11/26 2200 AC 11/30 PO 1638 Clopidogrel Bisulfate 75 MG DAILY 11/27 1000 AC 12/01 PO 0912 Docusate Sodium 100 MG DAILY 11/29 1614 AC 12/01 PO 0911 Ferrous Sulfate 325 MG TID 11/28 1007 AC 12/01 PO 0911 Ipratropium [place] 2.5 ML BID 11/28 2200 AC 12/01 INH 1009 Ipratropium [place] 2.5 ML Q6P PRN 11/26 1700 AC INH Metoprolol Succinate 25 MG DAILY 11/30 1226 AC 12/01 PO 0912 Omeprazole 40 MG BID 11/30 2200 AC 12/01 PO 0911 Polyethylene Glycol 17 GM DAILY 11/29 1614 AC 12/01 PO 0917 Senna 187 MG AT BEDTIME PRN 11/26 1845 AC 11/30 PO 2112 Sodium Chloride 1 SPRAY TID PRN 11/26 1700 AC [place] Results Pertinent Lab Results: Laboratory Tests 12/01 11/30 0650 0710 Chemistry Sodium (137 - 145 mmol/L) 138 135 L Potassium (3.5 - 5.1 mmol/L) 3.7 3.9 Chloride (98 - 107 mmol/L) 99 99 Carbon Dioxide (22 - 30 mmol/L) 35 H 33 H Anion Gap (5 - 16) 5 4 L BUN (9 - 20 mg/dL) 5 L 6 L Creatinine (0.7 - 1.2 mg/dL) 0.8 0.7 Estimated GFR (>60 ml/min) > 60 > 60 BUN/Creatinine Ratio (7 - 25 %) 6.3 L 8.6 Hematology CBC w Diff NO MAN DIFF REQ NO MAN DIFF REQ WBC (4.8 - 10.8 /CUMM) 8.3 8.2 RBC (4.70 - 6.10 /CUMM) 3.21 L 3.28 L Hgb (14.0 - 18.0 G/DL) 8.6 L 8.8 L Hct (42 - 52 %) 27.0 L 27.3 L MCV (80.0 - 94.0 FL) 84.1 83.2 MCH (27.0 - 31.0 PG) 26.9 L 26.8 L RDW (11.5 - 14.5 %) 19.1 H 19.6 H Plt Count (130 - 400 /CUMM) 153 152 MPV (7.4 - 10.4 FL) 8.1 8.4 Gran % (42.2 - 75.2 %) 83.9 H 82.6 H Lymphocytes % (20.5 - 51.1 %) 8.6 L 9.7 L Monocytes % (1.7 - 9.3 %) 5.8 6.4 Eosinophils % (0 - 5 %) 1.5 1.2 Basophils % (0.0 - 2.0 %) 0.2 0.1 Absolute Granulocytes (1.4 - 6.5 /CUMM) 6.9 H 6.8 H Absolute Lymphocytes (1.2 - 3.4 /CUMM) 0.7 L 0.8 L Absolute Monocytes (0.10 - 0.60 /CUMM) 0.5 0.5 Absolute Eosinophils (0.0 - 0.7 /CUMM) 0.1 0.1 Absolute Basophils (0.0 - 0.2 /CUMM) 0 0 PUBS MCHC (33.0 - 37.0 G/DL) 32.0 L 32.2 L 11/29 06 Chemistry Sodium (137 - 145 mmol/L) 140 Potassium (3.5 - 5.1 mmol/L) 3.7 Chloride (98 - 107 mmol/L) 101 Carbon Dioxide (22 - 30 mmol/L) 33 H Anion Gap (5 - 16) 6 BUN (9 - 20 mg/dL) 11 Creatinine (0.7 - 1.2 mg/dL) 0.9 Estimated GFR (>60 ml/min) > 60 BUN/Creatinine Ratio (7 - 25 %) 12.2 Hematology CBC w Diff NO MAN DIFF REQ WBC (4.8 - 10.8 /CUMM) 7.5 RBC (4.70 - 6.10 /CUMM) 3.23 L Hgb (14.0 - 18.0 G/DL) 8.6 L Hct (42 - 52 %) 27.0 L MCV (80.0 - 94.0 FL) 83.5 MCH (27.0 - 31.0 PG) 26.7 L RDW (11.5 - 14.5 %) 19.9 H Plt Count (130 - 400 /CUMM) 141 MPV (7.4 - 10.4 FL) 8.3 Gran % (42.2 - 75.2 %) 83.9 H Lymphocytes % (20.5 - 51.1 %) 8.7 L Monocytes % (1.7 - 9.3 %) 6.4 Eosinophils % (0 - 5 %) 0.9 Basophils % (0.0 - 2.0 %) 0.1 Absolute Granulocytes (1.4 - 6.5 /CUMM) 6.3 Absolute Lymphocytes (1.2 - 3.4 /CUMM) 0.7 L Absolute Monocytes (0.10 - 0.60 /CUMM) 0.5 Absolute Eosinophils (0.0 - 0.7 /CUMM) 0.1 Absolute Basophils (0.0 - 0.2 /CUMM) 0 PUBS MCHC (33.0 - 37.0 G/DL) 32.0 L Imaging/Other Studies: 11/04/17: CT ABD & PELVIS W/O IV CONTRAST; CT CHEST WO IV CONTRAST- Small right greater than trace left bilateral pleural effusions with associated airspace disease. Cholelithiasis without evidence of cholecystitis. Residual contrast material present within the collecting system. Sigmoid diverticulosis without evidence of diverticulitis. Moderate to large amount stool within the rectum. 11/04/17: ECHOCARDIOGRAM- Normal size left ventricle. Mild concentric left ventricular hypertrophy. Segmental wall motion abnormalities as described above. Overall left ventricular systolic function appeared moderately hypokinetic with an estimated ejection fraction of 35%. Cannot exclude apical thrombus. Abnormal relaxation filling pattern of the left ventricle for age (stage 1 diastolic dysfunction). Normal right ventricular size and function. Normal right atrial size. Mild left atrial dilatation. Mild mitral regurgitation. Mild tricuspid regurgitation. No . Moderate pulmonary hypertension. Mild pulmonic regurgitation. Small pericardial effusion. Dilated inferior vena cava. 11/26/17: EKG- NSR @ 75, borderline LAD, borderline prolonged QT interval, indeterminate age anteroseptal IN, occasional unifocal PVC (without significant change from EKG of 11/05/17). 11/26/17: XR PORTABLE CHEST- Low lung volumes. Continued bilateral lower lobe atelectasis. Deviation of the trachea to the right at the thoracic inlet is caused by the dilated thoracic aorta. 11/27/17: *EGD WITH BIOPSY (& CYTOLOGY BRUSHINGS)- Impression: 1. 5 cm x 6 cm ulcerated, friable, irregular, necrotic antral lesion, tethered towards the lesser curvature/incisura, enveloping the pylorus, with mechanical gastric outlet obstruction. Cytology brushings, followed by 7 biopsies: ( Specimen A- rule out gastric Ca, rule out lymphoma, rule out severe peptic ulcer disease). Unable to locate pylorus or inspect duodenum. 2. Severely limited views of the proximal stomach, secondary to retained food. *I requested a CTE (i.e.- CT with IV contrast & po Volumen), but for some reason , only a non-contrast CT AP was obtained on 11/28/17 by the medical housestaff! 11/28/17: CT ABDOMEN AND PELVIS WITHOUT CONTRAST- (*personally reviewed with Dr. Hogue, of [facility])- 1. No acute findings along the gastrointestinal tract compared to 11/04/2017. No evidence of bowel perforation or abscess. Underdistended gastric antrum limiting exam. No exophytic gastric mass. Normal SB, LB, AP. Scattered diverticulosis coli, without diverticulitis. No free air. trace free fluid at paracolic gutters. No adenopathy. 2. Anasarca with persistent small B/L pleural effusions, soft tissue edema and trace fluid along paracolic gutters. Bibasilar atelectasis with LLL consolidation. 3. Gallbladder contains calculi and iodinated contrast material. The contrast is probably due to a recent ERCP procedure. Mild GB wall edema due to anasarca. No dilated ducts. Normal pancreas. (No recent ERCP done!- probable incidental "milk of calcium," per radiology). 4. Bibasilar atelectasis/consolidation, worse in the left lower lobe compared to 11/04/2017. 5. Three-vessel coronary ASHD. ASHD aorta without AAA. No retroperitoneal bleed. 6. DJD. 11/28/17: XR PORTABLE CHEST- The constellation of findings is most consistent with COPD exacerbation, although the exam is limited by the patient's hypoinflation which can simulate these findings. Recommend repeat examination with PA and lateral imaging with full inspiratory effort for more specific and sensitive evaluation of the lung marshall. 11/29/17: XRY-CHEST XRAY, TWO VIEWS- Cardiomegaly, pulmonary venous congestion and pulmonary interstitial edema. The findings are slightly more prominent as compared to 11/28/2017 chest x-ray at 1: 09 PM. Small bilateral pleural effusions and opacities at the lung bases which likely represent atelectatic changes. Superimposed pneumonia is not excluded. 11/29/17: *CT ENTEROGRAPHY (ABDOMEN AND PELVIS) WITH IV/PO (VOLUMEN) CONTRAST- 1. Mildly distended stomach with mild symmetric thickening of the antral wall & pylorus, which is nonspecific for inflammatory or other etiologies. A discrete ulceration or focal mass is not seen. Small adjacent lymph nodes are seen measuring up to 1.3 cm in size. *These could potentially be evaluated with endoscopic ultrasound. Normal SB. Moderate stool in right colon and rectum. Cecum is in RUQ. AP not seen (intact by history). 2. Cholelithiasis, without manifestations of cholecystitis. No dilated ducts. Normal liver & pancreas. 3. Trace perihepatic ascites. 4. 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 5. Small bilateral pleural effusions with bibasilar atelectasis. Mild ground- glass opacities in the RML & lingula.
[2017-12-01 15:35] VITALS: BP 138/62
[2017-12-01 22:16] VITALS: BP 120/68
[2017-12-02 07:01] VITALS: BP 110/50
[2017-12-02 09:21] LABS: ABSOLUTE BASOPHIL COUNT 0 /CUMM (0.0-0.2); ABSOLUTE EOSINOPHIL COUNT 0.2 /CUMM (0.0-0.7); ABSOLUTE GRANULOCYTE CT 6.4 /CUMM (1.4-6.5); ABSOLUTE LYMPH COUNT 0.7 /CUMM (1.2-3.4); ABSOLUTE MONOCYTE COUNT 0.4 /CUMM (0.10-0.60); BASOPHIL % 0 % (0.0-2.0); EOSINOPHIL % 2.1 % (0-5); HEMATOCRIT 28.3 % (42-52); MEAN CORPUSCULAR HGB CONC 31.2 G/DL (33.0-37.0); MEAN CORPUSCULAR VOLUME 83.4 FL (80.0-94.0); PLATELET COUNT 155 /CUMM (130-400); RBC DISTRIBUTION WIDTH 19.4 % (11.5-14.5); WHITE BLOOD CELL COUNT 7.7 /CUMM (4.8-10.8)
[2017-12-02 09:55] LABS: GRANULOCYTE % 83.2 % (42.2-75.2)
--- NOTE | 2017-12-02 10:33 | PN- Housestaff ---
Janny ERICKSON,Fe 12/02/17 1033: Subjective Follow-up For: Anemia Abdominal mass Tele-Events Since Last Visit: Normal sinus rhythm rate 72-88 with PACs and PVCs Subjective: Patient was seen and examined bedside. He is feeling "okay". Patient has no nausea, vomiting, abdominal pain. He says that he feels weak. Review of Systems Constitutional: Reports: weakness. EENTM: Reports: no symptoms. Cardiovascular: Reports: no symptoms. Respiratory: Reports: no symptoms. Gastrointestinal: Reports: no symptoms. Genitourinary: Reports: no symptoms. Musculoskeletal: Reports: no symptoms. Skin: Reports: no symptoms. Neurological/Psychological: Reports: no symptoms. Hematologic/Endocrine: Reports: no symptoms. Immunologic/Allergic: Reports: no symptoms. Objective Last 24 Hrs of Vital Signs/I&O Vital Signs Date Time Temp Pulse Resp B/P B/P Pulse O2 O2 Flow FiO2 Mean Ox Delivery Rate 12/02 1057 95 Room Air Room Air 12/02 0833 77 110/50 12/02 0833 77 110/50 12/02 0701 98.1 77 20 110/50 91 Nasal 1.0L Cannula 12/02 0000 Nasal 1.0L Cannula 12/01 2216 98.4 78 20 120/68 93 12/01 1934 91 Room Air Room Air 12/01 1835 68 138/62 12/01 1535 98.5 68 20 138/62 92 Intake & Output 12/02 1600 12/02 0800 12/02 0000 Intake Total 120 240 Output Total 100 500 400 Balance -100 -380 -160 Intake, Oral 120 240 Number 0 0 Bowel Movements Output, Urine 100 500 400 Physical Exam General Appearance: Alert, Oriented X3, Cooperative, No Acute Distress Skin: No Rashes, No Breakdown, No Significant Lesion Skin Temp/Moisture Exam: Warm/Dry Sepsis Skin Exam (color): Normal for Ethnicity HEENT: Atraumatic Cardiovascular: Regular Rate, Normal S1, Normal S2, No Murmurs Lungs: Clear to Auscultation, Normal Air Movement Abdomen: Normal Bowel Sounds, Soft, No Tenderness Neurological: Normal Speech Extremities: No Clubbing, No Cyanosis, No Edema, Normal Pulses, No Tenderness/ Swelling Vascular: Normal Pulses, Pulses Symmetrical Current Medications: Current Medications Sig/Lacey Start time Last Medication Dose Route Stop Time Status Admin Albuterol Sulfate 3 ML BID 11/280 AC 12/02 INH 1054 Aspirin Buffered 81 MG DAILY 11/28 1003 AC 12/02 PO 0832 Atorvastatin Calcium 80 MG 1700 11/26 2200 AC 12/01 PO 1545 Bisacodyl 10 MG ONCE ONE 12/01 1430 DC 12/01 CT 12/01 1431 1544 Clopidogrel Bisulfate 75 MG DAILY 11/27 1000 AC 12/02 PO 0832 Docusate Sodium 100 MG DAILY 11/29 1614 AC 12/02 PO 0832 Ferrous Sulfate 325 MG TID 11/28 1007 AC 12/02 PO 0832 Ipratropium Henderson 2.5 ML BID 11/28 2200 AC 12/02 INH 1054 Ipratropium Henderson 2.5 ML Q6P PRN 11/26 1700 AC INH Lisinopril 2.5 MG DAILY 12/01 1709 AC 12/02 PO 0833 Metoprolol Succinate 25 MG DAILY 11/30 1226 AC 12/02 PO 0833 Omeprazole 40 MG BID 11/30 2200 DC 12/01 PO 0911 Pantoprazole Sodium 40 MG BID 12/01 1427 AC 12/01 IV 2110 Polyethylene Glycol 17 GM BID 12/01 2200 AC 12/02 PO 0834 Polyethylene Glycol 17 GM DAILY 11/29 1614 DC 12/01 PO 0917 Senna 187 MG AT BEDTIME PRN 11/26 1845 AC 11/30 PO 2112 Sodium Chloride 1 SPRAY TID PRN 11/26 1700 AC [place] Last 24 Hrs of Lab/Edilberto Results Last 24 Hrs of Labs/Mics: Laboratory Tests 12/02/17 0900: CBC w Diff NO MAN DIFF REQ, RBC 3.40 L, MCV 83.4, MCH 26.0 L, RDW 19.4 H, MPV 8.0, Gran % 83.2 H, Lymphocytes % 9.7 L, Monocytes % 5.0, Eosinophils % 2.1, Basophils % 0, Absolute Granulocytes 6.4, Absolute Lymphocytes 0.7 L, Absolute Monocytes 0.4, Absolute Eosinophils 0.2, Absolute Basophils 0, PUBS MCHC 31.2 L Assessment/Plan Assessment: Assessment Mr Merritt is pleasant 82 yo m with past medical history significant for hypertension, dyslipidemia and recent PCI with placement of drug-eluting stent to LAD less than 1 month ago on dual antiplatelet therapy aspirin and Plavix who is brought in by ambulance from [facility] on 11/26/2017 after the patient was found to have a low H&H (hgb 3.2) with progressively worsening fatigue. He was admitted to the ICU for further management and monitoring. The patient was given 5 units of blood for his anemia. He had an EGD showing a antral friable mass. He was transferred to us in telemetry for further treatment and monitoring. Plan #Microcytic anemia most likely 2/2 acute blood loss The patient had previously refused EGD/colonoscopy when initially seen by GI-Dr. Candelario 11/02/17, at his previous admission. Patient reports he has no previous EGD or colonoscopy. At the time he was severely anemic and tranfused. He was readmitted 11/26/17, with worsening H/H 3.3/10.4, BUN/Cr ratio 47:1, and guaiac positive stools. Antiplatelet agents were continued in view of recent HARPREET. After agreeing to a EGD, patient was initially reluctant to have a dual colonoscopy done but patient later agreed to it. Colonoscopy was deferred to a later date because patient had not been bowel prepped. On 11/28/17 he had an EGD with biopsies performed by GI-Dr. Paige and found to have an friable mass with mechanical gastric outlet obstruction suspicious for malignancy. * CTE with po Volumen & IV contrast: Mildly distended stomach with mild symmetric thickening of the antral wall & pylorus, which is nonspecific (see full report) * Protonix 40 IV twice a day. Hospital does not have by mouth Protonix and we cannot give omeprazole as patient is on Plavix and omeprazole can decrease the efficacy of Plavix. * H/H daily. Maintain H/H >8 * Guiac all stools * stable from a GI standpoint. Patient will be followed outside for possible endoscopic ultrasound and we will await results of biopsy * CT ABD/Pelvis to r/o visceral mass * Continue Ferrous TID * MiraLAX twice a day, Dulcolax suppository * Nutrition consult #Severe hypotension, bilateral LE edema with recent PCI s/p LAD occlusion [facility] he underwent PCI with Synergy HARPREET after it was found that the patient has a 95% occlusion of LAD. His admission here was complicated with respiratory acidosis with septic shock requiring intubation. He was extubated after 2 days. * Cardiology recommendations appreciated * Continue leg elevation above heart * Strict I&O * Daily weights * started metoprolol XL 25mg (1/3 of home dose) * Patient is negative fluid balance, continue to hold diuretics * Start lisinopril 2.5 mg #Hypoxia * continue oxygen supplementation as needed. Will wean off as tolerated. #Leukocytosis most likely reactive in the setting of severe anemia/resolved * Hold off antibiotics * Monitor white count Disposition * patient will be discharged to [facility] as per physical therapy * Patient was sent here originally from [facility] #Heart healthy diet. #DVT prophylaxis ALP #Code status Full code Problem List: 1. Antral ulcer 2. Malnutrition 3. NSTEMI (non-ST elevated myocardial infarction) 4. GI bleed Pain Ratin Pain Location: None Pain Goal: Remain pain free Pain Plan: None Tomorrow's Labs & Rationales: Patient is stable for discharged to short-term rehabilitation with follow-up Daniel Garcia 12/02/17 1352: Attending MD Review Statement Attending Statement Attending MD Statement: examined this patient, discuss w/resident/PA/SADDLE STITCH OPERATOR, agreed w/resident/PA/SADDLE STITCH OPERATOR, discussed with family, reviewed EMR data (avail), discussed with case mgmt Attending Assessment/Plan: Pt seen by Physical therapy. recommending Rehab. D/w case management and they are working on finding a place for him. Pt is stable from medical standpoint. Hb stable. cont to monitor. Pt will f/u with GI clinic as an outpatient for f/u of biopsy results and further treatment plan will be accoring to that. Pt will also need cbc checked while at [facility] to monitor his hb.
--- NOTE | 2017-12-02 11:15 | PN- Cardiology ---
Subjective Subjective: No complaints. Specifically denies any chest discomfort, palpitations, shortness of breath, etc. Remains in sinus rhythm on telemetry. Objective Vital Signs and I&Os Vital Signs Date Time Temp Pulse Resp B/P B/P Pulse O2 O2 Flow FiO2 Mean Ox Delivery Rate 12/02 1057 95 Room Air Room Air 12/02 0833 77 110/50 12/02 0833 77 110/50 12/02 0701 98.1 77 20 110/50 91 Nasal 1.0L Cannula 12/02 0000 Nasal 1.0L Cannula 12/01 2216 98.4 78 20 120/68 93 12/01 1934 91 Room Air Room Air 12/01 1835 68 138/62 12/01 1535 98.5 68 20 138/62 92 Intake & Output 12/02 1600 12/02 0800 12/02 0000 12/01 1600 12/01 0800 12/01 0000 Intake Total 120 240 500 300 450 Output Total 100 500 400 600 750 725 Balance -100 -380 -160 -100 -450 -275 Intake, Oral 120 240 500 300 450 Number 0 0 0 Bowel Movements Output, Urine 100 500 400 600 750 725 Physical Exam: Well-developed, pale-appearing elderly male in no acute distress. Vital signs: See above. Neck: No JVD, no bruits. Lungs: Clear to auscultation bilaterally. Heart: S1, S2 (regular). Abdomen: Soft, nontender, positive bowel sounds. Extremities: No edema. Assessment/Plan Assessment/Plan [id number] w/ hx of pevious hyponatremia, long-standing tobacco use, hyponatremia, HTN, & HLD who was recently hospitalized here (10/31-11/05/2017) after presenting w/ new onset HFpEF and anemia for which he refused endoscopy/ colonoscopy and who after a benign initial hospital course became unstable w/ hypotensive on 11/04/2719 w/ ECG changes, positive troponins, and worsening LV function by repeat echocardiography who was stabilized and ultimately transferred to [facility] where he underwent urgent cardiac catheterization that revealed a high-grade (95%) proximal LAD stenosis for which he underwent PCI/HARPREET (Synergy) on antiplatelet therapy (clopidogrel, aspirin) w/ gradual improvement in his overall status and who presented from [facility] on 11/26/2017 w/ c/ o of weakness and the discovery of profound anemia 2/2 GI bleeding. Endoscopy performed 11/27/2017 by gastroenterology, Joshua Paige M.D. and revealed an ulcerated, friable, irregular, necrotic antral lesion, tethered towards the lesser curvature/incisura, enveloping the pylorus, with mechanical gastric outlet obstruction. Differential diagnosis for mass includes gastric carcinoma, lymphoma, severe peptic ulcer disease, etc. Biopsy specimen results pending. Fortunately, he is hemodynamically stable s/p transfusion of 5 units pRBCs and remains on statin, antiplatelets, JASKARAN inhibitor, and beta kortney therapy. Recommendations: * Continue ICU admission. * Continue antiplatelet therapy (ec ASA, Plavix) if okay with gastroenterology, given recent ACS & PCI/HARPREET. * Continue to follow-up H/H closely and transfuse packed cells as needed to maintain hemoglobin above 8.0 g/dl. * Continue on the rest of his cardiac regimen. * Follow-up on gastroenterology recommendations following endoscopy. * Mechanical DVT prophylaxis. Continue telemetry? Yes
[2017-12-02] MEDS ORDERED: PROTONIX40 M3 PO (11:34)
--- NOTE | 2017-12-02 11:44 | Patient Discharge Instructions ---
Discharge Instructions General Discharge Information You were seen/treated for: gastric mass anemia Special Instructions: 1. Please follow-up with PCP in 1 week 2. Please follow-up with tapper shank Dr. Paige in one week 3. Please follow-up with line patrolman Dr. Bolaños in 1 week Diet Continue normal diet: Yes Activity Full Activity/No Limits: Yes (as tolerated) Acute Coronary Syndrome Inclusion Criteria At DC or during hospital stay patient has or had the following: ACS DIAGNOSIS No Discharge Core Measures Meds if any: Prescribed or Continued at Discharge Meds if any: NOT Prescribed or Continued at Discharge Congestive Heart Failure Inclusion Criteria At DC or during hospital stay patient has or had the following: CHF DIAGNOSIS No Discharge Core Measures Meds if any: Prescribed or Continued at Discharge Meds if any: NOT Prescribed or Continued at Discharge Cerebrovascular accident Inclusion Criteria At DC or during hospital stay patient has or had the following: CVA/TIA Diagnosis No Discharge Core Measures Meds if any: Prescribed or Continued at Discharge Meds if any: NOT Prescribed or Continued at Discharge Venous thromboembolism Inclusion Criteria VTE Diagnosis No VTE Type NONE VTE Confirmed by (Test) NONE Discharge Core Measures - Per Current guidelines, there needs to be overlap - treatment for the first 5 days of Warfarin therapy. - If discharged on Warfarin prior to 5 days of - overlap therapy, the patient will need to be - assessed for post discharge needs including - *Post discharge parental anticoagulation - *Warfarin and/or parental anticoagulation education - *Follow up date to check INR post discharge At least 5 days overlap therapy as Inpatient No Meds if any: Prescribed or Continued at Discharge Note: Overlap Therapy is Warfarin and Anticoagulant Meds if any: NOT Prescribed or Continued at Discharge
--- NOTE | 2017-12-02 11:46 | Discharge Summary ---
Visit Information Visit Dates Admission Date: 11/26/17 Discharge Date: 12/02/2017 Hospital Course Course Attending Physician: Jose ERICKSON,Daniel Nunez Primary Care Physician: Miguelito Vicente MD Hospital Course: 82 y/o male, HTN, HLD, hx CHF, ASHD, post recent NSTEMI 11/05/17, requiring drug eluting cardiac stent on ASA & Plavix , subsequently found to be 95% proximal LAD lesion, txd with Synergy stent presented from rehabilitation with profound weakness and also had labs there by his PMD, revealing severe anemia (H/H 3.2/ 10.3), prompting him to be sent in to the [facility]. The patient was seen by Dr. Candelario in GI consultation 11/02/17, after being admitted to [facility] 10/31/17 with complaints of worsening lower extremity edema, hypoNa, fatigue, & CHF exacerbation in the setting of new microcytic anemia. At that time, he refused any endoscopic workup, despite being made aware of the risk of an occult GI malignancy. He was transfused a total of 3 units PRBC that admission, for H/H 06/22 with MCV 63 & low ferritin. At that time, he denied any GERD, odynophagia, dysphagia, nausea, vomiting, early satiety, abdominal pain, hematemesis, melena, rectal bleeding, diarrhea, constipation, obstipation, tenesmus, change in stool caliber, weight loss, or change in appetite. He was not on any NSAIDS. He had never had a baseline screening colonoscopy prior to the anemia, nor an EGD. He never followed up with Dr. Candelario as an outpatient. After a benign initial hospital course he became unstable w/ hypotensive on 11/04/2017 w/ ECG changes, positive troponins, and worsening LV function by repeat echocardiography who was stabilized and ultimately transferred to [facility] where he underwent urgent cardiac catheterization that revealed a high-grade (95%) proximal LAD stenosis for which he underwent PCI/HARPREET (Synergy) on antiplatelet therapy (clopidogrel, aspirin) w/ gradual improvement in his overall status and who presented from [facility] on 2016 w/ c/o of weakness and the discovery of profound anemia 2/2 GI bleeding. ------ #Microcytic anemia most likely 2/2 acute blood loss from gastric mass The patient had previously refused EGD/colonoscopy when initially seen by GI-Dr. Candelario 11/02/17, at his previous admission. Patient reported that he has no previous EGD or colonoscopy. At the time he was severely anemic and tranfused. He was readmitted 11/26/17, with worsening H/H 3.3/10.4, BUN/Cr ratio 47:1, and guaiac positive stools. Antiplatelet agents were continued in view of recent HARPREET. After agreeing to a EGD, patient was initially reluctant to have a dual colonoscopy done but patient later agreed to it. Colonoscopy was deferred to a later date because patient had not been bowel prepped. On 11/27/17 he had an EGD with biopsies performed by GI-Dr. Paige and found to have an 5 cm x 6 cm ulcerated, friable, irregular, necrotic antral lesion, tethered towards the lesser curvature/incisura, enveloping the pylorus, with mechanical gastric outlet obstruction. CTE with po Volumen & IV contrast showed Mildly distended stomach with mild symmetric thickening of the antral wall & pylorus. CAT scan abdomen and pelvis was done and ruled out possible mass. Patient received IV Protonix twice daily in the hospital. We are planning to discharge him on pantoprazole 40 twice daily. Off note patient cannot get oral omeprazole as he is on Plavix and omeprazole can decrease the efficacy of Plavix. His H&H remained stable in the hospital after 5 units of blood transfusion. Hemoglobin was maintained above 8. All his stools were guaiac- positive. Patient will be followed outside for possible endoscopic ultrasound. Patient was advised to follow-up with theatre arts professor Dr. Cui about biopsy results. Dr. Cui called the patient from his office to discuss about biopsy results saying that cytology showing cancer cells. Oncology referral with Dr. Gresham was provided. Patient was aware about all these findings. He was advised to follow-up with oncologist and theatre arts professor. Will fax all the reports to [facility]. #Hypoxia continued oxygen supplementation as needed and weaned off. #Leukocytosis most likely reactive in the setting of severe anemia/resolved CAD He recently had 11/05/17: NSTEMI & drug-eluting Synergy stent placed in proximal LAD then, which was 95% occluded. The patient is at very high risk for reocclusion and repeat ND if his antiplatelet agents are stopped at this point. This was discussed with the patient in detail. Patient was continued on aspirin and Plavix in the hospital. Staff Electrical Engineer was consulted and continued on dual antiplatelets, high-dose statin, metoprolol and lisinopril. 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 Abnormal relaxation filling pattern suggestive of stage I diastolic dysfunction. However Lasix was on hold in the hospital because of borderline blood pressures. #Heart healthy diet. #DVT prophylaxis ALP #Code status Full code Allergies: Coded Allergies: No Known Allergies (12/06/16) Significant Procedures: s/p endoscopy 11/27 Impression: 1. 5 cm x 6 cm ulcerated, friable, irregular, necrotic antral lesion, tethered towards the lesser curvature/incisura, enveloping the pylorus, with mechanical gastric outlet obstruction. Cytology brushings, followed by 7 biopsies: ( Specimen A- rule out gastric Ca, rule out lymphoma, rule out severe peptic ulcer disease). Unable to locate pylorus or inspect duodenum. 2. Severely limited views of the proximal stomach, secondary to retained food. Pertinent Lab Results: 10/31/17: borderline elevated T4 11.9, nl TT3 1.05, nl TSH 1.26, Fe 13, TIBC 483 , *Fe sat 2%, *ferritin 12.3, B12 597, folate 8.8. 11/26/17: Admission labs- WBC 13.6 (87% gran/12 gran Ab), H/H 3.3/10.4, MCV 74.6 , RDW 27.2, PLT 214, PT 14.4, INR 1.38, PTT 25, glucose 119, BUN/Cr 52/1.1, GFR > 60, Na 136, K 4.1, HCO3 27, AG 10, lactate 2.7, Ca2+ 8.3, albumin 2.8, globulin 2.3, TBil 0.3, alk phos 88, AST 17, ALT 24, troponin 0.04, CK < 20, BNP 3000. 11/26/17: U/A- clear yellow, 1.020, 6.0, 3-5 WBC, rare hyaline cast, few granular cast, few bacteria, micro- otherwise negative; negative nitrite, trace esterase 11/04/17: CT ABD & PELVIS W/O IV CONTRAS; CT CHEST WO IV CONTRAST- Small right greater than trace left bilateral pleural effusions with associated airspace disease. Cholelithiasis without evidence of cholecystitis. Residual contrast material present within the collecting system. Sigmoid diverticulosis without evidence of diverticulitis. Moderate to large amount stool within the rectum. 11/04/17: ECHOCARDIOGRAM- Normal size left ventricle. Mild concentric left ventricular hypertrophy. Segmental wall motion abnormalities as described above. Overall left ventricular systolic function appeared moderately hypokinetic with an estimated ejection fraction of 35%. Cannot exclude apical thrombus. Abnormal relaxation filling pattern of the left ventricle for age (stage 1 diastolic dysfunction). Normal right ventricular size and function. Normal right atrial size. Mild left atrial dilatation. Mild mitral regurgitation. Mild tricuspid regurgitation. No . Moderate pulmonary hypertension. Mild pulmonic regurgitation. Small pericardial effusion. Dilated inferior vena cava. 11/26/17: EKG- NSR @ 75, borderline LAD, borderline prolonged QT interval, indeterminate age anteroseptal ND, occasional unifocal PVC (without significant change from EKG of 11/05/17). 11/26/17: XR PORTABLE CHEST- Low lung volumes. Continued bilateral lower lobe atelectasis. Deviation of the trachea to the right at the thoracic inlet is caused by the dilated thoracic aorta. CT ENTEROGRAPHY IMPRESSION: 1. Mildly distended stomach with mild symmetric thickening of the pylorus which is nonspecific for inflammatory or other etiologies. A discrete ulceration or focal mass is not seen. Small adjacent lymph nodes are seen measuring up to 1.3 cm in size. These could potentially be evaluated with endoscopic ultrasound. Disposition Summary Disposition Principal Diagnosis: Gastric mass Acute blood loss anemia Symptomatic anemia Recent cardiac cath and stent placement Additional Diagnosis: constipation Discharge Disposition: SNF Discharge Instructions General Discharge Information Code Status: Full Code Patient's Diet: As tolerated Patient's Activity: As tolerated Follow-Up Instructions/Appts: Please follow-up with PCP in one week after discharge. Please follow-up with theatre arts professor and discuss about the pathology reports. He may need an eventual oncology and surgical referral. Oncology referral was provided with Dr. Gresham. We will fax the reports to [facility]. Please follow-up with the crane assembler in one week after discharge Medications at Discharge Discharge Medications: Continue taking these medications: Aspirin (Ecotrin*) 81 MG TABLET. 1 Tablet ORAL DAILY Comments: Last Taken: 12/02/17 Time: 0830 AM Ferrous Sulfate (Ferrous Sulfate) 325 MG (65 MG IRON) TABLET 1 Tablet ORAL DAILY Qty = 30 Comments: Last Taken: 12/02/17 Time: 0830 AM Clopidogrel Bisulfate (Clopidogrel) 75 MG TABLET 1 Tablet ORAL DAILY Qty = 30 Comments: Last Taken: 12/02/17 Time: 0830 AM Atorvastatin Calcium (Lipitor) 80 MG TABLET 1 Tablet ORAL DAILY Comments: Last Taken: 12/01/17 Time: 345 PM Furosemide (Lasix) 40 MG TABLET 1 Tablet ORAL DAILY Comments: NOT GIVEN IN HOSPITAL. Ipratropium/Albuterol Sulfate (Iprat-Albut 0.5-3(2.5) MG/3 Ml) 0.5 MG-3 MG (2.5 MG BASE)/3 ML AMPUL.NEB 1 VIAL Inhale through mouth Q6H Comments: Last Taken: 12/02/17 Time: 1050 AM GIVEN BY RESPIRATORY THERAPY Melatonin (Melatonin) 3 MG TABLET 1 Tablet ORAL TAKE AT BEDTIME Comments: NOT GIVEN IN HOSPITAL. Sennosides/Docusate Sodium (Senna S Tablet) 8.6 MG-50 MG TABLET 1 Tablet ORAL TAKE AT BEDTIME Comments: Last Taken: 12/02/17 Time: 0830 AM Lisinopril (Zestril) 2.5 MG TABLET 1 Tablet ORAL TAKE AT BEDTIME Comments: Last Taken: 12/02/17 Time: 0830 AM Metoprolol Succ XL (Toprol XL) 25 MG TAB 75 Milligram ORAL DAILY Comments: Last Taken: 12/02/17 Time: 0830 AM Sodium Chloride (Saline Nasal Daniel) 0.65 % SPRAY 1 Daniel Both sides of nose THREE TIMES DAILY as needed for NASAL CONGESTION Comments: NOT GIVEN IN HOSPITAL. Start taking the following new medications: Pantoprazole Sodium (Protonix) 40 MG TABLET. 1 Tablet ORAL TWICE DAILY Qty = 60 No Refills Comments: Last Taken: 12/02/17 Time: 1200 NOON GIVEN IV IN HOSPITAL. Copies To: Jules ERICKSON,Miguelito Nunez
[2017-12-02 14:40] VITALS: BP 110/50
[2017-12-02 14:56] VITALS: BP 110/50
--- NOTE | 2017-12-02 16:07 | Event Note ---
Event Note Event Note: Dr. Cui called the patient this afternoon from his office to discuss about biopsy results saying that cytology showing cancer cells. * Oncology referral with Dr. Gresham was provided. * Patient was aware about all these findings. * He was advised to follow-up with oncologist and jail officer. * Will fax all the reports to [facility]. * He was discharged to [facility].
== END 2017-12-02 15:40 | DRG 374 ==
LOC: ERH 12:43 → CRI 13:44 → 1NO 13:44 → ERHI 13:44 → ENRESERV 15:19 → ENTRNSPT 15:58 → EDTRNSPTSTS 16:05 → EDTRNSPT 16:05 → CRI 16:18 → CMPTRNSPT 16:20 → CRI 16:30 → ENTRNSPT 11-28 11:57 → 1NO 11-28 12:13 → EDTRNSPT 11-28 12:42 → EDTRNSPTSTS 11-28 12:43 → CMPTRNSPT 11-28 13:03 → 1NO 11-30 11:40
PROVIDERS: Hospitalist; Internal Medicine; Physician Assistant; Student in an Organized Health Care Education/Training Program
PROC: 30233N1 Transfusion of Nonautologous Red Blood Cells into Peripheral Vein, Percutaneous Approach (ICD-10-PCS; 2017-11-26)
PROC: 0DB68ZX Excision of Stomach, Via Natural or Artificial Opening Endoscopic, Diagnostic (ICD-10-PCS; principal; 2017-11-27)
DX: C16.9 Malignant neoplasm of stomach, unspecified (principal); I21.4 Non-ST elevation (NSTEMI) myocardial infarction; E46 Unspecified protein-calorie malnutrition; I11.0 Hypertensive heart disease with heart failure; I95.9 Hypotension, unspecified; D62 Acute posthemorrhagic anemia; E87.1 Hypo-osmolality and hyponatremia; I50.32 Chronic diastolic (congestive) heart failure; E78.5 Hyperlipidemia, unspecified; I25.10 Atherosclerotic heart disease of native coronary artery without angina pectoris; Z87.891 Personal history of nicotine dependence
CPT/HCPCS: 1NP; CCU; 36415; 74176; 74177; 81001; 82436; 86920; 88305; 93005; 93010; 96374; 97110-GO; 97116-GO; 97161-GP; 99291; J1940; J3490; J7040; P9016

== ENCOUNTER 2018-01-13 17:00 | Emergency (ER) | payer OTHER, MEDICARE ==
[~2018-01-13] VITALS: Ht 177.8 cm; Wt 78.9 kg
[~2018-01-13 17:00] MED LIST changes: +IPRAT-ALBUT 0.5-3 ML INH; +LASIX40 M1 PO; +LIPITOR80 M1 PO; +MELATONIN3 M4 PO; +PROTONIX40 M3 PO; +SALINE NASAL SP30 ML NASB; +SENNA S TABLET1 EACH PO; +TOPROL XL25 M1 PO; +ZESTRIL2.5 M1 PO
--- NOTE | 2018-01-13 19:05 | ED GENERAL ADULT ---
History of Present Illness General Chief Complaint: General Adult Stated Complaint: SIB BY PCP FOR BLOOD TRANSFUSION Source: patient, family, old records Exam Limitations: no limitations Vital Signs & Intake/Output Vital Signs & Intake/Output Vital Signs Date Time Temp Pulse Resp B/P B/P Pulse O2 O2 Flow FiO2 Mean Ox Delivery Rate 01/14 0155 96.5 72 20 139/63 97 Room Air 01/14 0003 96.5 61 20 123/58 96 Room Air 01/13 2322 96.4 71 20 141/64 97 Room Air 01/13 2130 96.4 69 16 103/58 01/13 2115 96.3 72 16 133/58 01/13 1942 Room Air 01/13 1927 96.8 65 18 123/58 95 Room Air 01/13 1739 96.7 70 18 118/70 95 Room Air ED Intake and Output 01/14 0000 01/13 1200 Intake Total Output Total Balance Patient 174 lb Weight Weight Reported by Patient Measurement Method Allergies Coded Allergies: No Known Allergies (12/06/16) Reconcile Medications Aspirin (Ecotrin*) 81 MG TABLET.DR 1 TAB PO DAILY HEART/BLOOD (Reported) Atorvastatin Calcium (Lipitor) 80 MG TABLET 1 TAB PO DAILY CHOLESTEROL ( Reported) Clopidogrel Bisulfate (Clopidogrel) 75 MG TABLET 1 TAB PO DAILY HEART HEALTH Ferrous Sulfate 325 MG (65 MG IRON) TABLET 1 TAB PO DAILY low iron Furosemide (Lasix) 40 MG TABLET 1 TAB PO DAILY DIURETIC (Reported) Ipratropium/Albuterol Sulfate (Iprat-Albut 0.5-3(2.5) MG/3 Ml) 0.5 MG-3 MG (2.5 MG BASE)/3 ML AMPUL.NEB 1 VIAL INH Q6H RESP. (WHILE AWAKE) (Reported) Lisinopril (Zestril) 2.5 MG TABLET 1 TAB PO QHS BP (Reported) Melatonin 3 MG TABLET 1 TAB PO QHS SUPPLEMENT (Reported) Metoprolol Succ XL (Toprol XL) 25 MG TAB 75 MG PO DAILY HEART/BP (Reported) Pantoprazole Sodium (Protonix) 40 MG TABLET.DR 1 TAB PO BID GERD Sennosides/Docusate Sodium (Senna S Tablet) 8.6 MG-50 MG TABLET 1 TAB PO QHS GI (Reported) Sodium Chloride (Saline Nasal [place]) 0.65 % SPRAY 1 SPRAY NASB TID PRN NASAL CONGESTION (Reported) Triage Note: PT STATES HE WAS SENT IN BY PCP FOR A BLOOD TRANSFUSION. PT HAS BW DONE AT TODAY AND WAS SENT IN BY DR. LEDBETTER. Triage Nurses Notes Reviewed? yes HPI: Patient presents for evaluation of worsening anemia. Patient states that he has a history of anemia and gets routine blood counts. According to his daughter he has a tumor in his abdomen that is "weeping". He had blood tests done earlier today and was told to go to the emergency department for blood transfusion. His daughter states that his hematology oncologist and kinesiology professor feel he needs his hemoglobin above 8. Patient denies any clinical sources of bleeding but states he does pass dark bowel movements secondary to iron supplementation. There has been no acute change in his bowel habits. Patient otherwise has no specific complaint. His daughter states that he appears pale to her. (Kathia ERICKSON,Shanw Yancey) Past History Travel History Traveled to [place] past 21 day No Medical History Any Pertinent Medical History? see below for history Neurological: NONE EENT: NONE Cardiovascular: hypertension, hyperlipidemia, NSTEMI (11/05/17 f/b drugeluting stent), CARDIAC STENT Respiratory: NONE Gastrointestinal: GI BLEED- refused w/u for Fe def anemia Hepatic: cholelithiasis Renal: EVELIN- resolved Musculoskeletal: NONE Psychiatric: NONE Endocrine: NONE Blood Disorders: anemia Cancer(s): NONE TRIMMING OPERATOR/Reproductive: NONE Other Medical Hx: OSTEOMYELITIS L2-L3/L3-L4 History of MRSA: No History of VRE: No History of CDIFF: No Surgical History Surgical History: PCI/LAD drug eluting stent 11/05/17 Psychosocial History Who do you live with [employer] [facility] at Home None What is your primary language Wallisian Tobacco Use: Quit >30 days ago ETOH Use: denies use Illicit Drug Use: denies illicit drug use Family History Family History, If Any: MOTHER, , Age 60+. FH: diabetes mellitus FATHER, , Age 30-40; Cause: Unknown cause of morbidity or mortality. Relation not specified for: *No pertinent family history Hx Contributory? No (Kathia ERICKSON,Shawn Yancey) Review of Systems Review of Systems Constitutional: Reports: no symptoms. EENTM: Reports: no symptoms. Respiratory: Reports: no symptoms. Cardiovascular: Reports: no symptoms. GI: Reports: no symptoms. Genitourinary: Reports: no symptoms. Musculoskeletal: Reports: no symptoms. Skin: Reports: no symptoms. Neurological/Psychological: Reports: no symptoms. Hematologic/Endocrine: Reports: see HPI. Immunologic/Allergic: Reports: no symptoms. All Other Systems: Reviewed and Negative (Kathia ERICKSON,Shawn Yancey) Physical Exam Physical Exam General Appearance: SEE BELOW Comments: Gen.: Well-nourished, well-developed, no acute respiratory distress. Head: Normocephalic, atraumatic. Eyes: Normal inspection bilaterally, palpebral conjunctiva pink Ears: Normal inspection bilaterally Nose: Normal inspection Throat/mouth : Moist mucosa Neck: Supple, full range of motion, no goiter Heart: Regular rate and rhythm, no murmurs rubs or gallops Lungs: Clear to auscultation bilaterally with normal air entry Chest: Nontender Back: Normal range of motion Abdomen: Soft, nontender, nondistended, normal bowel sounds Extremities: Normal range of motion grossly, equal radial pulses, no cyanosis clubbing or edema Neurologic: Cranial nerves grossly intact, speech is clear Skin: warm and dry, normal color Psychiatric: Calm, cooperative, no apparent delusions or hallucinations Core Measures ACS in differential dx? No CVA/TIA Diagnosis: No Sepsis Present: No Sepsis Focused Exam Completed? No (Kathia ERICKSON,Shawn Yancey) Progress Differential Diagnoses I considered the following diagnoses in my evaluation of the patient: Anemia of chronic disease, GI bleed, or deficiency anemia Plan of Care: Orders Procedure Date/time Status BLOOD PRODUCT PICKUP 01/13 2331 Active LEUKOCYTE POOR (PACKED CELLS) 01/13 2326 Active BLOOD PRODUCT PICKUP 01/13 205 Active TYPE & SCREEN (NOT X-MATCH) 01/13 190 Active LEUKOCYTE POOR (PACKED CELLS) 01/13 1904 Active Initial ED EKG: none Comments: 01/13/2018 11:29:54 PM patient wishes to have a second unit of blood. Ordered. 01/13/2018 11:27:23 PM patient signed out to Dr. Jimenez at shift electronic data interchange specialist. (Kathia ERICKSON,Shawn Yancey) Departure Departure Disposition: STILL A PATIENT Condition: Stable Clinical Impression Primary Impression: Chronic anemia Referrals: Miguelito Vicente MD (PCP/Family) Departure Forms: Customer Survey General Discharge Information (Kathia ERICKSON,Shawn Yancey) Departure Comments 01/14/18, 1:45am... pt feeling better after blood transfusion... pt feels safe for discharge and will follow up with team. (Barbara ERICKSON,Stiven Hunter) Critical Care Note Critical Care Note Critical Care Time: 30-74 min (Kathia ERICKSON,Shawn Yancey)
[2018-01-14 01:55] VITALS: BP 139/63
== END 2018-01-14 02:05 ==
LOC: ERH 17:00
DX: D64.9 Anemia, unspecified (principal); I10 Essential (primary) hypertension; Z87.891 Personal history of nicotine dependence
CPT/HCPCS: 86920; P9016

== ENCOUNTER 2018-01-23 09:59 | Emergency (ER) | payer OTHER, MEDICARE ==
[~2018-01-23] VITALS: Ht 180.3 cm; Wt 78.9 kg
--- NOTE | 2018-01-23 11:44 | ED CARDIAC/CP/PALPITATIONS ---
History of Present Illness General Chief Complaint: General Adult Stated Complaint: SIB DR SAMUEL FOR LOW BP Source: patient Exam Limitations: no limitations Allergies Coded Allergies: No Known Allergies (12/06/16) Reconcile Medications Aspirin (Ecotrin*) 81 MG TABLET.DR 1 TAB PO DAILY HEART/BLOOD (Reported) Atorvastatin Calcium (Lipitor) 80 MG TABLET 1 TAB PO DAILY CHOLESTEROL ( Reported) Clopidogrel Bisulfate (Clopidogrel) 75 MG TABLET 1 TAB PO DAILY HEART HEALTH Ferrous Sulfate 325 MG (65 MG IRON) TABLET 1 TAB PO DAILY low iron Furosemide (Lasix) 40 MG TABLET 1 TAB PO DAILY DIURETIC (Reported) Ipratropium/Albuterol Sulfate (Iprat-Albut 0.5-3(2.5) MG/3 Ml) 0.5 MG-3 MG (2.5 MG BASE)/3 ML AMPUL.NEB 1 VIAL INH Q6H RESP. (WHILE AWAKE) (Reported) Lisinopril (Zestril) 2.5 MG TABLET 1 TAB PO QHS BP (Reported) Melatonin 3 MG TABLET 1 TAB PO QHS SUPPLEMENT (Reported) Metoprolol Succ XL (Toprol XL) 25 MG TAB 75 MG PO DAILY HEART/BP (Reported) Pantoprazole Sodium (Protonix) 40 MG TABLET.DR 1 TAB PO BID GERD Sennosides/Docusate Sodium (Senna S Tablet) 8.6 MG-50 MG TABLET 1 TAB PO QHS GI (Reported) Sodium Chloride (Saline Nasal [place]) 0.65 % SPRAY 1 SPRAY NASB TID PRN NASAL CONGESTION (Reported) Triage Note: SIB DR SAMUEL FOR HYPOTENSION. PT DENIES FEELING DIZZY. STATES DIDN'T TAKE HIS HTN MEDS TODAY. BP IN TRIAGE 128/66 Triage Nurses Notes Reviewed? yes Onset: Abrupt Duration: hour(s): Timing: recent history HPI: 82-year-old male with symptoms emergency room because his blood pressure was taken at home and was low at 90/40. Patient is currently undergoing chemotherapy for gastric cancer. Visiting nurse came in to take his blood pressure and found it was low. Patient has no complaints. He denies any chest pain shortness of breath lightheaded dizziness or syncopal episodes. Denies any other associated symptoms. He has been anemic. His blood counts have slowly been decreasing. He had outpatient blood work done this morning.He has absolutely 0 complaints here and his blood pressure is normal. (Aubrey Fitch) Vital Signs & Intake/Output Vital Signs & Intake/Output Vital Signs Date Time Temp Pulse Resp B/P B/P Pulse O2 O2 Flow FiO2 Mean Ox Delivery Rate 01/23 1250 98.0 102 17 108/62 96 Room Air 01/23 1006 97.6 87 20 128/66 96 Room Air (Kathia ERICKSON,Shawn Yancey) Past History Travel History Traveled to [place] past 21 day No Medical History Any Pertinent Medical History? 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 FH: diabetes mellitus FATHER, , Age 30-40; Cause: Unknown cause of morbidity or mortality. Relation not specified for: *No pertinent family history Hx Contributory? No (Aubrey Fitch) Review of Systems Review of Systems Constitutional: Reports: no symptoms. EENTM: Reports: no symptoms. Respiratory: Reports: no symptoms. Cardiovascular: Reports: no symptoms. GI: Reports: no symptoms. Genitourinary: Reports: no symptoms. Musculoskeletal: Reports: no symptoms. Skin: Reports: no symptoms. Neurological/Psychological: Reports: no symptoms. Hematologic/Endocrine: Reports: no symptoms. Immunologic/Allergic: Reports: no symptoms. All Other Systems: Reviewed and Negative (Aubrey Fitch) Physical Exam Physical Exam General Appearance: well developed/nourished, alert, awake Head: atraumatic Eyes: Bilateral: normal appearance, EOMI. Ears, Nose, Throat: normal ENT inspection, hearing grossly normal Neck: normal inspection Respiratory: no respiratory distress Cardiovascular: regular rate/rhythm Extremities: normal inspection Neurologic/Psych: awake, alert, oriented x 3, normal gait Skin: intact, normal color Core Measures ACS in differential dx? Yes CVA/TIA Diagnosis No Sepsis Present: No Sepsis Focused Exam Completed? No (Aubrey Fitch) Progress Differential Diagnosis: cardiac arrhythmia, chronic anemia, anemia chronic disease, aplastic anemia, iron deficiency anemia, Initial ED EKG: normal sinus rhythm, rate (83) (Aubrey Fitch) Plan of Care: Orders Procedure Date/time Status TROPONIN LEVEL 01/23 1138 Complete COMPREHENSIVE METABOLIC PANEL 01/23 113 Complete EKG 01/23 113 Active Laboratory Tests 01/23/18 1156: Anion Gap 6, Estimated GFR > 60, BUN/Creatinine Ratio 32.5 H, Glucose 115 H, Calcium 8.2 L, Total Bilirubin 0.3, AST 21, ALT 23, Alkaline Phosphatase 82, Troponin I 0.02, Total Protein 4.9 L, Albumin 2.8 L, Globulin 2.1, Albumin/ Globulin Ratio 1.3 01/23/18 1138: CBC w Diff Cancelled, WBC Cancelled, RBC Cancelled, Hgb Cancelled, Hct Cancelled , MCV Cancelled, MCH Cancelled, MCHC Cancelled, RDW Cancelled, Plt Count Cancelled, MPV Cancelled (Kathia ERICKSON,Shawn Yancey) Departure Departure Disposition: HOME OR SELF CARE Condition: Stable Clinical Impression Primary Impression: Anemia Referrals: Jules ERICKSON,Miguelito Nunez (PCP/Family) Additional Instructions: Hold your blood pressure medication for the next 24 hours. Follow-up with [facility] tomorrow. Return if any concerns worsening symptoms. Please go over all results of today's visit with your primary care doctor. Contact your primary care doctor to let them know you were here in the emergency room. There may be nonspecific findings which may not be related to your visit today here in the emergency room but may require further evaluation and chronic monitoring by your primary care doctor. If you had a laceration today the chance of foreign body always remains. You should follow-up with your primary care doctor for recheck in 3-5 days for a wound check. If you had an x-ray done there is a chance that a fracture could have been missed on initial read and you should follow-up with your primary care doctor for repeat x-rays if symptoms persist. If your blood pressure was elevated here in the emergency room please have rechecked by jennifer primary care doctor within the next 48. If you were prescribed a narcotic here in the emergency room or any type of controlled substances you're not allowed to drive while taking this medication or operate any type of heavy machinery. Narcotics can make you feel lightheaded dizziness nausea and can cause constipation. You may need to cloth picker a stool softener. Thank you for choosing [facility] emergency room. Please return to the emergency room immediately if you have any other concerns worsening of symptoms. Departure Forms: Customer Survey General Discharge Information Comments 01/23/2018 1:35:08 PM Patient clinically looks well. In no apparent distress. Blood pressure has been borderline here but he is asymptomatic. Orthostatics are negative. Patient has follow-up at [facility] tomorrow. At this time safe for discharge. He understands and agrees with plan of care. Patient was seen and evaluated by Dr. Bae. (Aubrey Fitch) PA/CHIEF OF VITAL STATISTICS Co-Sign Statement Statement: ED Attending supervision documentation- [X] I saw and evaluated the patient. I have also reviewed all the pertinent lab results and diagnostic results. I agree with the findings and the plan of care as documented in the PA's/CHIEF OF VITAL STATISTICS's documentation. Patient presents for evaluation of low blood pressure determined at home by a VNA. Patient blood pressure is normal upon arrival to the emergency department and his physical examination reveals a well-hydrated gentleman in no apparent respiratory distress. His color is good. He is conversant. [] I have reviewed the ED Record and agree with the PA's/CHIEF OF VITAL STATISTICS's documentation. [] Additions or exceptions (if any) to the PAs/CHIEF OF VITAL STATISTICS's note and plan are summarized below: [] (Kathia ERICKSON,Shawn Yancey) Critical Care Note Critical Care Note Critical Care Time: non-applicable (Aubrey Fitch)
[2018-01-23 12:50] VITALS: BP 108/62
== END 2018-01-23 13:16 ==
LOC: ERH 09:59
DX: D64.9 Anemia, unspecified (principal); I10 Essential (primary) hypertension
CPT/HCPCS: 93005; 93010

== ENCOUNTER 2018-01-30 15:54 | Inpatient (IN) | payer OTHER, MEDICARE ==
[~2018-01-30] VITALS: Ht 180.3 cm; Wt 82.1 kg
--- NOTE | 2018-01-30 16:10 | ED DYSPNEA/ASTHMA COMPLAINT ---
History of Present Illness General Chief Complaint: General Adult Stated Complaint: BIBA LOW O2 AND GENERAL WEAKNESS Source: patient, old records, EMS Exam Limitations: no limitations Vital Signs & Intake/Output Vital Signs & Intake/Output Vital Signs Date Time Temp Pulse Resp B/P B/P Pulse O2 O2 Flow FiO2 Mean Ox Delivery Rate 01/30 1933 97.6 96 18 131/81 96 Nasal 2.0L Cannula 01/30 1816 98.2 97 18 145/65 95 Nasal 2.0L Cannula 01/30 1646 96 Nasal 2.0L Cannula 01/30 1621 93 18 96 Nasal 2.0L Cannula 01/30 1601 99.2 84 20 129/60 98 Nasal 4.0L Cannula Allergies Coded Allergies: No Known Allergies (12/06/16) Reconcile Medications Aspirin (Ecotrin*) 81 MG TABLET.DR 1 TAB PO DAILY HEART/BLOOD (Reported) Atorvastatin Calcium (Lipitor) 80 MG TABLET 1 TAB PO DAILY CHOLESTEROL ( Reported) Clopidogrel Bisulfate (Clopidogrel) 75 MG TABLET 1 TAB PO DAILY HEART HEALTH Diphenoxylate HCl/Atropine (Lomotil 2.5-0.025 MG Tablet) 2.5 MG-0.025 MG TABLET 1 TAB PO AD DIARRHEA (Reported) Ferrous Sulfate (Ferosul) 325 MG (65 MG IRON) TABLET 1 TAB PO TID SUPPLEMENT (Reported) Furosemide (Lasix) 40 MG TABLET 1 TAB PO DAILY DIURETIC (Reported) Furosemide (Lasix) 20 MG TABLET 1 TAB PO AD DIURETIC (Reported) Ipratropium/Albuterol Sulfate (Iprat-Albut 0.5-3(2.5) MG/3 Ml) 0.5 MG-3 MG (2.5 MG BASE)/3 ML AMPUL.NEB 1 VIAL INH Q6H RESP. (WHILE AWAKE) (Reported) Lisinopril (Zestril) 2.5 MG TABLET 1 TAB PO QHS BP (Reported) Melatonin 3 MG TABLET 2 TAB PO QHS SUPPLEMENT (Reported) Metoprolol Succinate 50 MG TAB.ER.24H 1 TAB PO DAILY HEART/BP (Reported) Nutritional Supplement (Resource 2.0) (Unknown Strength) LIQUID 360 ML PO DAILY SUPPLEMENT (Reported) Oxycodone HCl 5 MG TABLET 1 TAB PO Q4H PRN PAIN (Reported) Pantoprazole Sodium (Protonix) 40 MG TABLET.DR 1 TAB PO BID GERD Sennosides/Docusate Sodium (Senna S Tablet) 8.6 MG-50 MG TABLET 2 TAB PO BID GI (Reported) Triage Note: 82 YEAR OLD MALE FROM HOME SENT IN BY VISITING NURSE FOR 02 SAT 78% ON RA. PT REPORTS SOME FATIGUE TODAY BUT DENIES CP/SOB. PT ARRIVES TO ED ALERT AND ORIENTED X3, CLEAR SPEECH, SPEAKING IN FULL SENTENCES. PT SATTING 100% ON NON-REBREATHER, PLACED ON 4L VIA NC SATTING 96%. DR. CONDON TO BEDSIDE FOR EVAL. PT OFFERS NO COMPLAINTS AT THIS TIME. Triage Nurses Notes Reviewed? yes HPI: Patient was sent in by his visiting nurse after she found him to be hypoxic at home. Patient has recent diagnosis of gastric carcinoma and recently started chemotherapy. Patient had a shot of Neupogen yesterday. Patient states that for the past 2 days is been feeling generalized weakness but he denies any shortness of breath, orthopnea, dyspnea on exertion, chest pain or chest tightness. He occasionally gets nauseous but there is no vomiting. There is no diarrhea. He denies any headache or blurry vision. Upon EMS arrival to his home he was found to have a room air saturation of 74%. His oxygen level improved to 96% on 2 L via nasal cannula. Patient was brought in for evaluation. Past History Travel History Traveled to [place] past 21 day No Medical History Any Pertinent Medical History? 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 FH: diabetes mellitus FATHER, , Age 30-40; Cause: Unknown cause of morbidity or mortality. Relation not specified for: *No pertinent family history Hx Contributory? No Review of Systems Review of Systems Constitutional: Reports: see HPI, weakness. EENTM: Reports: no symptoms. Respiratory: Reports: no symptoms. Cardiovascular: Reports: no symptoms. GI: Reports: no symptoms. Genitourinary: Reports: no symptoms. Musculoskeletal: Reports: no symptoms. Skin: Reports: no symptoms. Neurological/Psychological: Reports: no symptoms. Hematologic/Endocrine: Reports: no symptoms. Immunologic/Allergic: Reports: no symptoms. All Other Systems: Reviewed and Negative Physical Exam Physical Exam General Appearance: well developed/nourished, alert, awake, anxious, moderate distress Head: atraumatic Eyes: Bilateral: PERRL, EOMI. Ears, Nose, Throat: normal pharynx, normal ENT inspection, hearing grossly normal Neck: normal inspection, supple, full range of motion Respiratory: rales (BIBASILAR) Cardiovascular: regular rate/rhythm, normal peripheral pulses Gastrointestinal: normal bowel sounds, soft, non-tender Extremities: normal inspection, normal capillary refill Neurologic/Psych: no motor/sensory deficits, awake, alert, oriented x 3 Skin: intact, normal color, warm/dry Lymphatic: no anterior cervical soledad Core Measures ACS in differential dx? Yes CVA/TIA Diagnosis No Sepsis Present: Yes Sepsis Focused Exam Completed? Yes ED Sepsis Exam Date of Focused Sepsis Exam: 01/30/18 Time of Focused Sepsis Exam: 1900 Sepsis Cardiac Exam: Regular Rate/Rhythm Sepsis Resp Exam: Rales Sepsis Cap Refill Exam: <2 Sec Sepsis Peripheral Pulse Exam: Normal Sepsis Peripheral Pulse Location: Radial Sepsis Skin Color Exam: Normal for Ethnicity Skin Temp/Moisture Exam: Warm/Dry Progress Differential Diagnosis: asthma, AMI, bronchitis, CHF, COPD, pneumonia, pneumothorax Plan of Care: Orders Procedure Date/time Status Heart Healthy Diet 01/31 B Active LACTIC ACID 01/31 2252 Active Add-on Test (ER Only) 01/30 1957 Active ED Holding Orders 01/31 1952 Active Admit to inpatient 01/31 1952 Active Vital Signs 01/31 1952 Active Straight Cath 01/31 1952 Active LACTIC ACID 01/31 1952 Active Code Status 01/31 1952 Active Patient Data 01/31 1948 Active BLOOD CULTURE 01/31 1940 Active URINALYSIS 01/31 1940 Active ARTERIAL BLOOD GAS (GEN) 01/30 160 Active Telemetry/Keyliner 01/30 160 Active TROPONIN LEVEL 01/30 160 Complete COMPREHENSIVE METABOLIC PANEL 01/30 160 Complete CBC WITHOUT DIFFERENTIAL 01/30 160 Complete B-TYPE NATRIURETIC PEP (BNP) 01/30 160 Complete EKG 01/30 1609 Active Laboratory Tests 01/30/184: Urine Color Pending, Urine Clarity Pending, Urine pH Pending, Ur Specific [place] Pending, Urine Protein Pending, Urine Ketones Pending, Urine Nitrite Pending, Urine Bilirubin Pending, Urine Urobilinogen Pending, Ur Leukocyte Esterase Pending, Ur Microscopic Pending, Urine Hemoglobin Pending, Urine Glucose Pending 01/30/18 1633: Anion Gap 5, Estimated GFR > 60, BUN/Creatinine Ratio 23.3, Glucose 124 H, Calcium 7.9 L, Total Bilirubin 0.4, AST 40, ALT 30, Alkaline Phosphatase 118, Troponin I 0.04, [id number] Pept 2380 H, Total Protein 4.6 L, Albumin 2.5 L, Globulin 2.1, Albumin/Globulin Ratio 1.2, CBC w Diff MAN DIFF ORDERED, RBC 3.37 L, MCV 88.9, MCH 27.9, MCHC 31.4 L, RDW 17.2 H, MPV 7.7, Gran % 85.2 H, Lymphocytes % 6.5 L, Monocytes % 6.9, Eosinophils % 0.9, Basophils % 0.5, Absolute Granulocytes 20.6 H, Segmented Neutrophils 43, Band Neutrophils 14 H, Absolute Lymphocytes 1.6, Lymphocytes 10 L, Monocytes 7, Absolute Monocytes 1.7 H, Eosinophils 1, Absolute Eosinophils 0.2, Absolute Basophils 0.1, Metamyelocytes 12 H, Myelocytes 13 H, Nucleated RBCs 2 H, Platelet Estimate ADEQUATE, Polychromasia 2+, Basophilic Stippling 2+, Anisocytosis 1+ 01/30/18 1615: pH 7.32 L, pCO2 59 H, pO2 82, HCO3 30 H, ABG O2 Sat (Measured) 93.0 L, P-50 (Temp Corrected) N, Carboxyhemoglobin 1.3 L, O2 Concentration % 4L, Temperature 99.2, O2 Delivery Method NC, Phlebotomy Draw Site LEFT RADIAL Microbiology 01/31 1940 BLOOD: Blood Culture - ORD 01/31 1940 BLOOD: Blood Culture - ORD Diagnostic Imaging: Viewed by Me: Radiology Read. Discussed w/RAD: Radiology Read. CXR Impression: PATIENT: BRENDA SAVAGE PRESENT AGE: 82 PATIENT ACCOUNT NO: [id number] : 36 LOCATION: [facility] ORDERING PHYSICIAN: Taurus Condon MD SERVICE DATE: 01/30/18 EXAM TYPE: RAD - XRY- PORTABLE CHEST XRAY EXAMINATION: CHEST 1 VIEW CLINICAL INFORMATION: Hypoxia. Pulmonary edema. COMPARISON: 11/29/2017. TECHNIQUE: An AP view of the chest is provided. FINDINGS: The cardiac silhouette is stable. A right PICC line is in place. The tip terminates near the SVC/right atrial junction. Low lung volumes are evident. There is streaky bibasilar atelectasis. There are no consolidations. The osseous structures are stable. IMPRESSION: Limited evaluation due to low lung volumes. There is streaky bibasilar airspace disease, likely atelectasis. Right PICC line in place. DICTATED BY: Edu Stapleton MD DATE/TIME DICTATED:01/30/181701 AWNINGS MECHANIC:MARIE DATE/TIME TRANSCRIBED:01/30/181701 CONFIDENTIAL, DO NOT COPY WITHOUT APPROPRIATE AUTHORIZATION. <Electronically signed in Other Vendor System> SIGNED BY: Edu Stapleton MD 01/30/181706 Initial ED EKG: SR, LVH, NSSTT CHANGES, NO CHANGE FROM PRIOR Prior EKG: unchanged Rhythm Strip: normal sinus rhythm Departure Departure Disposition: STILL A PATIENT Condition: Stable Clinical Impression Primary Impression: Hypoxia Secondary Impressions: Leukocytosis Referrals: Miguelito Vicente MD (PCP/Family) Departure Forms: Customer Survey General Discharge Information Admission Note Spoke With: Felipa Garza MD Documentation of Exam: Documentation of any treatments & extenuating circumstances including Concerns Regarding Discharge (functional status, medication knowledge or non-compliance, living conditions, etc.) that warrant an admission rather than observation: [ Telemetry admission, IV diuresis, IV antibiotics once we obtain a urine, ID consultation, oncology consultation, cardiology consultation] Critical Care Note Critical Care Note Critical Care Time: mins: (90 MIN)
[2018-01-30 16:40] LABS: ABSOLUTE BASOPHIL COUNT 0.1 /CUMM (0.0-0.2); ABSOLUTE EOSINOPHIL COUNT 0.2 /CUMM (0.0-0.7); ABSOLUTE GRANULOCYTE CT 20.6 /CUMM (1.4-6.5); ABSOLUTE LYMPH COUNT 1.6 /CUMM (1.2-3.4); ABSOLUTE MONOCYTE COUNT 1.7 /CUMM (0.10-0.60); BASOPHIL % 0.5 % (0.0-2.0); EOSINOPHIL % 0.9 % (0-5); GRANULOCYTE % 85.2 % (42.2-75.2); HEMATOCRIT 29.9 % (42-52); MEAN CORPUSCULAR HGB 27.9 PG (27.0-31.0); MEAN CORPUSCULAR HGB CONC 31.4 G/DL (33.0-37.0); MEAN CORPUSCULAR VOLUME 88.9 FL (80.0-94.0); MEAN PLATELET VOLUME 7.7 FL (7.4-10.4); PLATELET COUNT 231 /CUMM (130-400); RBC DISTRIBUTION WIDTH 17.2 % (11.5-14.5); RED BLOOD CELL CT 3.37 /CUMM (4.70-6.10); WHITE BLOOD CELL COUNT 24.2 /CUMM (4.8-10.8)
--- NOTE | 2018-01-30 17:07 | RADIOLOGY REPORT ---
EXAMINATION: CHEST 1 VIEW CLINICAL INFORMATION: Hypoxia. Pulmonary edema. COMPARISON: 11/29/2017. TECHNIQUE: An AP view of the chest is provided. FINDINGS: The cardiac silhouette is stable. A right PICC line is in place. The tip terminates near the SVC/right atrial junction. Low lung volumes are evident. There is streaky bibasilar atelectasis. There are no consolidations. The osseous structures are stable. IMPRESSION: Limited evaluation due to low lung volumes. There is streaky bibasilar airspace disease, likely atelectasis. Right PICC line in place.
[2018-01-30] MEDS ORDERED: LASIX20 M1 PO (17:44)
[2018-01-30] MEDS ORDERED: METOPROLOL SUCC50 M2 PO (17:45)
[2018-01-30] MEDS ORDERED: FEROSUL325 M1 PO (17:46)
[2018-01-30] MEDS ORDERED: RESOURCE 2.0237 ML PO (17:48)
[2018-01-30] MEDS ORDERED: LOMOTIL 2.5-0.1 EACH PO (17:50)
[2018-01-30] MEDS ORDERED: OXYCODONE HCL5 M1 PO (17:50)
--- NOTE | 2018-01-30 18:35 | CT SCAN REPORT ---
EXAMINATION: CT PULMONARY EMBOLISM STUDY CLINICAL INFORMATION: Hypoxia. Colorectal cancer. COMPARISON: 11/04/2017. TECHNIQUE: Contiguous helical images of the chest were obtained following the administration of IV contrast. Multiplanar reconstructions were performed. MIPS were obtained and reviewed. DLP: 369 mGy-cm. CONTRAST: 95 mL of Optiray 350 were administered without incident. FINDINGS: The heart is of stable size. There is no pericardial effusion. The great vessels are unremarkable. Specifically, there is no pulmonary arterial filling defect. There is no CT evidence for pulmonary embolism. There are no chest wall masses. Review of lung windows demonstrates that there are neither pleural effusions nor pneumothoraces. There is dependent bibasilar airspace disease. There are no pulmonary parenchymal nodules. Limited evaluation of the upper abdomen demonstrates that the liver is of normal size and attenuation without focal lesions. There are calculi within the gallbladder lumen. There is no gallbladder wall thickening or pericholecystic fluid. Normal adrenal glands are identified. IMPRESSION: No CT evidence for pulmonary embolism. Dependent bibasilar airspace disease. Cholelithiasis without evidence of cholecystitis.
--- NOTE | 2018-01-30 20:33 | History & Physical ---
Shelley Foote MD 01/30/182031: General Information and HPI History of Present Illness: 82-year-old male with past medical history of hypertension, hyperlipidemia, diastolic congestive heart failure, gastric cancer, lumbar osteomyelitis treated in 2016, ACS with recent PCI,NSTEMI status post HARPREET, stomach cancer was sent to the hospital by the visiting nurse who found him saturating at 74% on room air. Patient is a poor historian and information was obtained from the daughter and over the phone. According to the [id number] patient got his chemotherapy last at his and since then he has been feeling very weak and tired. Patient also had diarrhea last 2 days and was taken to [place] and blood work was done which showed a WBC of 8.1. Stool sample was not done. He was treated with IV fluids and sent home. The patient did not have any nausea, vomiting, melena, constipation, bloody vomiting, fever, chills, cough, shortness of breath, palpitation chest pain, abdominal pain, fall. Patient was recently admitted in [facility] in October and was evaluated by power screwdriver operator and found to have stomach cancer. Patient sees Dr. Jaramillo at [place] for oncology. He got his PICC line placed 3 weeks ago. He had 5-6 blood transfusion since October 2017 at [place]. Patient also had Neupogen injection last week. Patient also had low blood pressure recording at last visit with his oncologist and hence his lisinopril was stopped and his Lasix was reduced from 40 mg to 20 mg by mouth. Patient had a drug-eluting stent placed in October 2017 at [facility] and during the same time he developed hospital-acquired Pneumonia and was intubated. Patient lives alone and uses walker at home. Allergies/Medications Allergies: Coded Allergies: No Known Allergies (12/06/16) Compliance With Home Meds: GOOD Past History Travel History Traveled to [place] past 21 day No Medical History Neurological: NONE EENT: NONE Cardiovascular: hypertension, hyperlipidemia, NSTEMI (11/05/17 f/b drugeluting stent), CARDIAC STENT Respiratory: NONE Gastrointestinal: GI BLEED- refused w/u for Fe def anemia Hepatic: cholelithiasis Renal: EVELIN- resolved Musculoskeletal: NONE Psychiatric: NONE Endocrine: NONE Blood Disorders: anemia Cancer(s): NONE COMPUTER SCIENCES PROFESSOR/Reproductive: NONE Other Medical Hx: OSTEOMYELITIS L2-L3/L3-L4 History of MRSA: No History of VRE: No History of CDIFF: No Surgical History Surgical History: PCI/LAD drug eluting stent 11/05/17 ECHO Results (as available) EF% 35 Past Family/Social History Family History Relations & Conditions if any MOTHER, , Age 60+. FH: diabetes mellitus FATHER, , Age 30-40; Cause: Unknown cause of morbidity or mortality. Relation not specified for: *No pertinent family history Psychosocial History Where do you live? Home Who Do You Live With? self Services at Home: None Primary Language: Chinese Smoking Status: Former Smoker ETOH Use: denies use Illicit Drug Use: denies illicit drug use Living Will? yes Power of Stockroom Worker/HCP? yes Name of POA/HCP: dtr- Delia Dillon; son- dEu Merritt Functional Ability ADLs Independent: dressing, eating, toileting, bathing. Ambulation: independent IADLs Independent: shopping, housework, finances, food prep, telephone, transportation , medication admin. Review of Systems Review of Systems Constitutional: Reports: malaise, weakness. EENTM: Reports: no symptoms. Cardiovascular: Reports: no symptoms. Respiratory: Reports: no symptoms. GI: Reports: abdominal pain. Genitourinary: Reports: no symptoms. Musculoskeletal: Reports: no symptoms. Skin: Reports: no symptoms. Neurological/Psychological: Reports: no symptoms. Exam & Diagnostic Data Last 24 Hrs of Vital Signs/I&O Vital Signs Date Time Temp Pulse Resp B/P B/P Pulse O2 O2 Flow FiO2 Mean Ox Delivery Rate 01/31 2208 97.1 97 20 136/63 99 Nasal 2.0L Cannula 01/30 2039 97.3 95 18 132/63 96 Nasal 2.0L Cannula 01/30 1933 97.6 96 18 131/81 96 Nasal 2.0L Cannula 01/30 1816 98.2 97 18 145/65 95 Nasal 2.0L Cannula 01/30 1646 96 Nasal 2.0L Cannula 01/30 1621 93 18 96 Nasal 2.0L Cannula 01/30 1601 99.2 84 20 129/60 98 Nasal 4.0L Cannula Physical Exam General Appearance Alert, Cooperative, No Acute Distress, oriented X 2 Skin No Rashes, No Breakdown Skin Temp/Moisture Exam: Warm/Dry HEENT Atraumatic Neck Supple, No JVD, No thryomegaly Cardiovascular Regular Rate, Normal S1, Normal S2, No Murmurs Lungs Clear to Auscultation, Normal Air Movement Abdomen Normal Bowel Sounds, Soft, No Tenderness, No Hepatospenomegaly Neurological Normal Gait, Normal Speech, Strength at 5/5 X4 Ext, Normal Tone, Sensation Intact Extremities No Clubbing, No Cyanosis, No Edema Last 24 Hrs of Labs/Edilberto: Laboratory Tests 01/30/182217: Troponin I Pending 01/30/182217: Lactic Acid Pending 01/30/184: Urine Color YEL, Urine Clarity CLEAR, Urine pH 5.5, Ur Specific [place] >= 1.030 , Urine Protein 30 H, Urine Ketones TRACE H, Urine Nitrite NEG, Urine Bilirubin NEG@ICTO, Urine Urobilinogen 0.2, Ur Leukocyte Esterase NEG, Ur Microscopic SEDIMENT EXAMINED, Urine RBC RARE, Urine WBC 3-5 H, Ur Epithelial Cells OCCAS, Hyaline Casts MANY H, Granular Casts FEW H, Urine Mucus MANY H, Urine Hemoglobin NEG, Urine Glucose NEG 01/30/18 1633: Anion Gap 5, Estimated GFR > 60, BUN/Creatinine Ratio 23.3, Glucose 124 H, Lactic Acid 1.0, Calcium 7.9 L, Total Bilirubin 0.4, AST 40, ALT 30, Alkaline Phosphatase 118, Troponin I 0.04, Opq-C-Xxjzifisjki Pept 2380 H, Total Protein 4.6 L, Albumin 2.5 L, Globulin 2.1, Albumin/Globulin Ratio 1.2, CBC w Diff MAN DIFF ORDERED, RBC 3.37 L, MCV 88.9, MCH 27.9, MCHC 31.4 L, RDW 17.2 H, MPV 7.7, Gran % 85.2 H, Lymphocytes % 6.5 L, Monocytes % 6.9, Eosinophils % 0.9, Basophils % 0.5, Absolute Granulocytes 20.6 H, Segmented Neutrophils 43, Band Neutrophils 14 H, Absolute Lymphocytes 1.6, Lymphocytes 10 L, Monocytes 7, Absolute Monocytes 1.7 H, Eosinophils 1, Absolute Eosinophils 0.2, Absolute Basophils 0.1, Metamyelocytes 12 H, Myelocytes 13 H, Nucleated RBCs 2 H, Platelet Estimate ADEQUATE, Polychromasia 2+, Basophilic Stippling 2+, Anisocytosis 1+ 01/30/18 1615: pH 7.32 L, pCO2 59 H, pO2 82, HCO3 30 H, ABG O2 Sat (Measured) 93.0 L, P-50 (Temp Corrected) N, Carboxyhemoglobin 1.3 L, O2 Concentration % 4L, Temperature 99.2, O2 Delivery Method NC, Phlebotomy Draw Site LEFT RADIAL Microbiology 01/30 2225 URINE ROUT: Urine Culture - ORD 01/30 2225 LOWER RESP: Respiratory Culture - ORD 01/30 2225 LOWER RESP: Gram Stain - ORD 01/30 2121 BLOOD: Blood Culture - RECD 01/30 2105 BLOOD: Blood Culture - RECD Diagnostic Data EKG Results Normal sinus rhythm, heart rate 90, QTC 431 CXR Results Chest x-ray Limited evaluation due to low lung volumes. There is streaky bibasilar airspace disease, likely atelectasis. Right PICC line in place. Assessment/Plan Assessment: 82-year-old gentleman with past medical history of hypertension, hyperlipidemia, diastolic congestive heart failure, osteomyelitis, gastric cancer on chemotherapy, acute coronary syndrome had a recent PCI, NSTEMI status post HARPREET, GI bleed, anemia was sent to the hospital by his nurse who found him saturating at 74% on room air. pt is admitted to telemetry Admission vitals temperature 98.2, pulse rate 97, respiratory rate 18, blood pressure 145/65, saturation 95 on 2 L of oxygen Admission labs WBC 24.2, hemoglobin 9.4, platelet 231, band neutrophils 14 sodium 135, potassium 4.6, BUN 21, creatinine 0.9, glucose 124, lactic acid 1, calcium 7.9, troponin 0.04, proBNP 2380, albumin 2.5 Blood gas upon arrival-7.32/59/82/30 Imaging Chest x-ray Limited evaluation due to low lung volumes. There is streaky bibasilar airspace disease, likely atelectasis. Right PICC line in place. Chest CT No CT evidence for pulmonary embolism. Dependent bibasilar airspace disease. Cholelithiasis without evidence of cholecystitis Echocardiogram October 2017 Overall left ventricular systolic function appeared moderately hypokinetic with an estimated ejection fraction of 35%. Cannot exclude apical thrombus. Abnormal relaxation filling pattern of the left ventricle for age (stage 1 diastolic dysfunction). ED treatment-Lasix 40 mg IV Assessment and plan 1. Acute hypoxic respiratory failure secondary due to possible hospital- acquired pneumonia. Given the patient multiple hospital visit and chest x-ray and CAT scan finding of bilateral airspace disease his hypoxia can be secondary due to pneumonia. We will treat him with ceftaz and vancomycin. Patient oxygenation improved upon 2 L of nasal oxygen and now saturating at 97%. Patient received 40 mg of IV Lasix in ED though his hypoxemia is unlikely secondary due to congestive heart failure. 2. Acute diarrhea-his 2 day history of diarrhea and his recent chemotherapy use for gastric cancer and hospital visit his diarrhea can be secondary due to chemotherapy/C. difficile infection. Other infectious causes need to be ruled out. Low suspicion for ischemic colitis given the severity and presentation. At present patient doesn't have any complaint or episode of diarrhea. We will send C. difficile and monitor him for now. We will take a CT abdomen and pelvis tomorrow. 3. Leukocytosis-patient WBC which was taken yesterday at [place] was 8.1 according to the daughter. Upon admission his WBC count is 24.2 with bands. His leukocytosis can be secondary due to pneumonia/Neupogen injection given last week at [facility]. We will continue monitoring his CBC. 3. Chronic medical condition-diastolic heart failure, hypertension, hyperlipidemia, coronary artery disease continue aspirin, atorvastatin, Plavix, Lasix 20 mg, metoprolol 50 mg. Code-full code Diet-heart healthy diet DVT prophylaxis-subcutaneous heparin As Ranked By This Provider Problem List: 1. Leukocytosis 2. Gastric mass 3. Acute hypoxemic respiratory failure Core Measures/Misc (08/17) Acute Coronary Syndrome ACS Diagnosis: No Congestive Heart Failure Congestive Heart Failure Diagnosis No Cerebrovascular Accident CVA/TIA Diagnosis: No VTE (View Protocol) VTE Risk Factors Age>40 No Mechanical VTE Prophylaxis d/t Other No VTE Pharm Prophylaxis d/t Other Sepsis (View protocol) Sepsis Present: No Radha ERIKCSON,Carmen 01/30/182055: General Information and HPI Allergies/Medications Home Med list Aspirin (Ecotrin*) 81 MG TABLET. 1 TAB PO DAILY HEART/BLOOD (Reported) Atorvastatin Calcium (Lipitor) 80 MG TABLET 1 TAB PO DAILY CHOLESTEROL ( Reported) Clopidogrel Bisulfate (Clopidogrel) 75 MG TABLET 1 TAB PO DAILY HEART HEALTH Diphenoxylate HCl/Atropine (Lomotil 2.5-0.025 MG Tablet) 2.5 MG-0.025 MG TABLET 1 TAB PO AD DIARRHEA (Reported) Ferrous Sulfate (Ferosul) 325 MG (65 MG IRON) TABLET 1 TAB PO TID SUPPLEMENT (Reported) Furosemide (Lasix) 20 MG TABLET 1 TAB PO AD DIURETIC (Reported) Ipratropium/Albuterol Sulfate (Iprat-Albut 0.5-3(2.5) MG/3 Ml) 0.5 MG-3 MG (2.5 MG BASE)/3 ML AMPUL.NEB 1 VIAL INH Q6H RESP. (WHILE AWAKE) (Reported) Lisinopril (Zestril) 2.5 MG TABLET 1 TAB PO QHS BP (Reported) Melatonin 3 MG TABLET 2 TAB PO QHS SUPPLEMENT (Reported) Metoprolol Succinate 50 MG TAB.ER.24H 1 TAB PO DAILY HEART/BP (Reported) Nutritional Supplement (Resource 2.0) (Unknown Strength) LIQUID 360 ML PO DAILY SUPPLEMENT (Reported) Oxycodone HCl 5 MG TABLET 1 TAB PO Q4H PRN PAIN (Reported) Pantoprazole Sodium (Protonix) 40 MG TABLET.DR 1 TAB PO BID GERD Sennosides/Docusate Sodium (Senna S Tablet) 8.6 MG-50 MG TABLET 2 TAB PO BID GI (Reported) Resident Review Statement Resident Statement: examined this patient, discussed with agribusiness internship, agreed with agribusiness internship, discussed with family, reviewed EMR data (avail), discussed with nursing , discussed with case mgmt, reviewed images, amended to note Other Findings: Patient is a 82 YO M with PMH of recently diagnosed gastric cancer status post 1 dose of chemotherapy, coronary artery disease status post PCI with HARPREET placement , hypertension, hyperlipidemia, diastolic heart failure was sent by visiting nurse after he found saturating 78% on room air. Patient is a very poor historian reports occasional weakness, coughs very often during examination. Speaking with [id number], apparently patient had his first session of chemotherapy last . He did experience diarrhea for the past few days followed by going to [employer], found to be afebrile with normal white count - hence resuscitated and sent home. Yesterday he received a dose of Neupogen. Today morning white count sent by his nurse did show elevated white count and he is found desaturating, thus sent to ER. He was started on opiates since yesterday and patient seems to be very obtunded. No history of vomiting/nausea. His oral intake was drastically reduced after his chemotherapy. Recently he was found to have low blood pressure and his lisinopril was held and furosemide reduced to 20 mg from 40 mg. Had a PICC line 3 weeks ago. Since his last admission he received around 6 units of transfusion due to persistent bleeding from his gastric cancer. vitals afebrile, HR 80, BP 120/60mmHg, saturating well on nonrebreather initially and his oxygen requirement reduced to 2 L Labs White count of 24.2 with bandemia (14), H&H 9.4/29.9, PT consult to 31, sodium 135, potassium 4.6, chloride 95, bicarbonate 35, BUN/creatinine 21/0.9, proBNP 2380, albumin 2.5. Imaging Chest x-ray Bibasilar airspace disease with limited evaluation CT angiogram No evidence of pulmonary embolus. Dependent bibasilar space disease. Cholelithiasis without evidence of cholecystitis Assessment Patient is a 82-year-old male with recently diagnosed lesser curvature gastric carcinoma status post first cycle of chemotherapy, CAD status post PCI/HARPREET recently, hypertension presented with acute desaturation after recent episode of diarrhea. Due to recent episode of hypotension his lisinopril was held and Lasix dose was reduced. Started on opiates yesterday. He received Neupogen yesterday and his white count is found to be elevated with bandemia today. Vital signs were stable. Physical examination significant for obtundation with dry mucous membranes, fine crackles in the left lung base with decreased breath sounds on the right lung base. Imaging did show bibasilar airspace disease which was chronic. Differentials Acute infection worsening his diastolic heart failure Aspiration following recent intake of opiates Colitis status post diarrhea C. difficile in immunosuppressed patient with recent hospitalization Evolving pneumonia Plan Admit to telemetry floor Acute hypoxic respiratory failure Secondary to infection versus diastolic failure versus overall deconditioning. Oxygen requirement improved after lasix dose and brisk increase in urine output. Although clinical picture overall is not overt failure/exacerbation, his response correlates with failure. His recent diarrhea with aggressive resuscitation could support acute exacerbation as well. Given elevated white count in an immunosuppressed patient with bandemia supports coverage with broad- spectrum antibiotics. * IV Vanco and ceftaz * Blood cultures/urine culture/lower respiratory culture * Trend lactic acid * CT abdomen and pelvis with IV contrast once feasible as he already received CT angiogram. Speaking with radiology - recommended to do around 5:30 in the evening. * ABG in am * Mildly hypotensive after lasix but recovered with gentle bolus of 250ml * Consult cardiology * ? Aspiration given recent opitae intake --- follow up with Xray * CT head for confusion ?? C.diff in the setting of recent hospitalization, immunosuppression Send for C.diff. Chronic medical conditions HFpEF, CAD s/p PCI with HARPREET last october - continue plavix, ASA, metoprolol GERD - continue Pantop No opiates given confusion DVT prophylaxis SC heparin Code status full code Felipa Garza 01/31/18 0231: Attending MD Review Statement Attending Statement Attending MD Statement: examined this patient, discuss w/resident/PA/BUSINESS ANALYST [employer], agreed w/resident/PA/BUSINESS ANALYST [employer], reviewed EMR data (avail), reviewed images, amended to note Attending Assessment/Plan: CC: Low oxygen saturation PMH: HFpEF, CAD S/P HARPREET in LAD in October 2017, history of osteomyelitis of lumbar spine December 2016, HTN, HLD, stomach cancer diagnosed in October 2017 currently on chemotherapy Patient started his chemotherapy approximately a week back, received a dose of Neupogen yesterday. He had a visiting nurse checking on him today who noted his O2 saturation to 78%. According to family patient appeared more confused, lethargic and sleepy since the chemotherapy, poor oral intake. Since last 2 days family noticed diarrhea for which patient is on Lomotil. Patient does not provide any complaints, ROS Limited. Patient denies any chest pain, palpitation, back pain, abdominal pain, fever, chills, nausea vomiting. Patient's lisinopril was recently discontinued for low blood pressure and his Lasix was changed to lower dose. Vitals: Temperature 99.2, pulse 84, RR 20, blood pressure 129/60, saturating 98% on 2 L nasal cannula, initially saturating 70s on room air on arrival On exam: A O 1, cooperative, no acute distress, neck supple, JVD normal, no lymphadenopathy, mucosa dry, no focal neurological deficit, significant bilateral lower extremity edema, no obvious skin rashes or inflammation, mild excoriation around buttocks but no pressure ulcers CVS: S1-S2, RRR. RS: Crackles bilaterally basis, no wheezing. Abdomen: Soft, NT, ND, bowel sounds present. Assessment and plan 82-year-old male with extensive past medical history presented in ER for low oxygen saturation. Patient's nurse was visiting today who saw oxygen saturation and 70s, EMS was called, in route patient was placed on nonrebreather, then de- escalated to nasal cannula oxygen while in ER. Patient was still significantly hypoxic without nasal cannula oxygen. Other than the symptom of hypoxia, family mentions that he had been sleepy, lethargic, confused, poor by mouth intake, 2 days history of diarrhea. Patient was on Lomotil, last known bowel movement unknown. Otherwise ROS unremarkable according to family. Patient is only oriented in time, sleepy but easily arousable, talks coherent, appears dehydrated, has crackles bilaterally in the bases and significant pedal edema, no JVD. Patient is found to have significant leukocytosis with left shift and band, , proBNP 2380 (previous 3000). CTA chest ruled out pulmonary embolism shows bibasilar airspace disease. Pneumonia is more likely than heart failure, given the examination findings, hypoxia, leukocytosis and immunocompromised state secondary to chemotherapy. Patient will require broad-spectrum antibiotics. He received a dose of Lasix while in ER, and blood pressure dropped to 100 systolic, which improved with gentle hydration. + Bibasilar pneumonia + Acute hypoxic respiratory failure + Hx HFpEF, CAD S/P HARPREET in LAD in October 2017, history of osteomyelitis of lumbar spine December 2016, HTN, HLD, stomach cancer diagnosed in October 2017 currently on chemotherapy - admit to telemetry - Continuous telemetry monitoring - Obtain C. difficile - Discontinue Lomotil, Lasix, hold lisinopril - Obtain ABG 6 in a.m. - Continue IV ceftaz and vancomycin - Obtain CT abdomen with IV contrast - Inform viticulturist up outpatient being here, suspicion of heart failure - Obtain UA urine culture, blood culture - Obtain CT head for acute confusion - Hold opiates for now - Continue aspirin, statin, Plavix, metoprolol and Protonix.
[2018-01-30 23:20] VITALS: BP 100/52
[2018-01-31 01:30] VITALS: BP 130/64
--- NOTE | 2018-01-31 02:32 | Admission Certification ---
Admission Certification Certification Statement - As attending physician, I certify that at the time of - admission, based on clinical presentation, severity of - symptoms, need for further diagnostic testing and - therapeutic interventions, and risk of adverse outcomes - without in-hospital treatment, in my clinical assessment, - this patient requires an acute hospital stay for a minimum - of two nights or longer. I have also considered psychsocial - factors such as support system, advanced age, financial - issues, cognitive issues, and failed out-patient treatments, - past re-admission history, safety of patient, and lack of - compliance as applicable. Specific rationale supporting this admission is: Pneumonia
[2018-01-31 03:00] VITALS: BP 118/50
--- NOTE | 2018-01-31 03:22 | PN- Housestaff ---
Subjective Follow-up For: Acute hypoxic respiratory failure CAD s/p CABG with recent stenting HFpEF Subjective: Seen and examined He is very obtunded, however responds to his name. He doesnt really respond to any further questions. He is not acutely distress, appears comfortable. Review of Systems Constitutional: Reports: see HPI. Comments: ROS cannot be excluded Objective Last 24 Hrs of Vital Signs/I&O Vital Signs Date Time Temp Pulse Resp B/P B/P Pulse O2 O2 Flow FiO2 Mean Ox Delivery Rate 01/30 2320 98.2 93 20 100/52 98 Nasal 2.0L Cannula 01/30 2246 Nasal 2.0L Cannula 01/30 2208 97.1 97 20 136/63 99 Nasal 2.0L Cannula 01/30 2039 97.3 95 18 132/63 96 Nasal 2.0L Cannula 01/30 1933 97.6 96 18 131/81 96 Nasal 2.0L Cannula 01/30 1816 98.2 97 18 145/65 95 Nasal 2.0L Cannula 01/30 1646 96 Nasal 2.0L Cannula 01/30 1621 93 18 96 Nasal 2.0L Cannula 01/30 1601 99.2 84 20 129/60 98 Nasal 4.0L Cannula Intake & Output 01/31 0800 01/31 0000 01/30 1600 Intake Total Output Total Balance Patient 78.528 kg Weight Weight Bed scale Measurement Method Physical Exam General Appearance: Alert, Cooperative Skin: No Rashes Sepsis Skin Exam (color): Normal for Ethnicity HEENT: Atraumatic, PERRLA Neck: Supple Cardiovascular: Normal S1, Normal S2 Lungs: Normal Air Movement, crackles present Abdomen: Normal Bowel Sounds, Soft, No Tenderness Neurological: Strength at 5/5 X4 Ext, Normal Tone, Sensation Intact Extremities: No Clubbing, No Cyanosis, 2+ edema right > left Vascular: Normal Pulses Current Medications: Current Medications Sig/Lacey Start time Last Medication Dose Route Stop Time Status Admin Aspirin Buffered 81 MG DAILY 01/31 1000 AC PO Atorvastatin Calcium 80 MG 1700 01/31 1700 AC PO Ceftazidime 1,000 MG IQ8 01/31 0000 AC 01/31 IV 0106 Clopidogrel Bisulfate 75 MG DAILY 01/31 1000 AC PO Diphenoxylate HCl/ 2.5 MG DAILY 01/31 1000 CAN Atropine PO Ferrous Sulfate 325 MG DAILY 01/31 1000 AC PO Furosemide 0 .STK-MED ONE 01/30 1736 DC IV Furosemide 40 MG ONCE ONE 01/30 1730 DC 01/30 IV 01/30 1731 1755 Melatonin 6 MG AT BEDTIME 01/31 2200 AC PO Metoprolol Succinate 50 MG DAILY 01/31 1000 AC PO Omeprazole 40 MG DAILY AC 01/31 0700 AC PO Ondansetron HCl 0 .STK-MED ONE 01/30 1742 DC .ROUTE Sodium Chloride 250 ML BOLUS ONE 01/30 2330 DC 01/30 IV 01/31 0029 2329 Vancomycin HCl 1,000 MG DAILY 01/30 2300 AC 01/31 Dextrose/Water 250 ML IV 0105 Last 24 Hrs of Lab/Edilberto Results Last 24 Hrs of Labs/Mics: Laboratory Tests 01/30/18 2252: Lactic Acid Cancelled 01/30/182217: Troponin I 0.03 01/30/182217: Lactic Acid 0.8 01/30/184: Urine Color YEL, Urine Clarity CLEAR, Urine pH 5.5, Ur Specific [place] >= 1.030 , Urine Protein 30 H, Urine Ketones TRACE H, Urine Nitrite NEG, Urine Bilirubin [email or web address]@[email or web address], Urine Urobilinogen 0.2, Ur Leukocyte Esterase NEG, Ur Microscopic SEDIMENT EXAMINED, Urine RBC RARE, Urine WBC 3-5 H, Ur Epithelial Cells OCCAS, Hyaline Casts MANY H, Granular Casts FEW H, Urine Mucus MANY H, Urine Hemoglobin NEG, Urine Glucose NEG 01/30/18 1633: Anion Gap 5, Estimated GFR > 60, BUN/Creatinine Ratio 23.3, Glucose 124 H, Lactic Acid 1.0, Calcium 7.9 L, Total Bilirubin 0.4, AST 40, ALT 30, Alkaline Phosphatase 118, Troponin I 0.04, Yke-Q-Ghioersdukn Pept 2380 H, Total Protein 4.6 L, Albumin 2.5 L, Globulin 2.1, Albumin/Globulin Ratio 1.2, CBC w Diff MAN DIFF ORDERED, RBC 3.37 L, MCV 88.9, MCH 27.9, MCHC 31.4 L, RDW 17.2 H, MPV 7.7, Gran % 85.2 H, Lymphocytes % 6.5 L, Monocytes % 6.9, Eosinophils % 0.9, Basophils % 0.5, Absolute Granulocytes 20.6 H, Segmented Neutrophils 43, Band Neutrophils 14 H, Absolute Lymphocytes 1.6, Lymphocytes 10 L, Monocytes 7, Absolute Monocytes 1.7 H, Eosinophils 1, Absolute Eosinophils 0.2, Absolute Basophils 0.1, Metamyelocytes 12 H, Myelocytes 13 H, Nucleated RBCs 2 H, Platelet Estimate ADEQUATE, Polychromasia 2+, Basophilic Stippling 2+, Anisocytosis 1+ 01/30/18 1615: pH 7.32 L, pCO2 59 H, pO2 82, HCO3 30 H, ABG O2 Sat (Measured) 93.0 L, P-50 (Temp Corrected) N, Carboxyhemoglobin 1.3 L, O2 Concentration % 4L, Temperature 99.2, O2 Delivery Method NC, Phlebotomy Draw Site LEFT RADIAL Microbiology 01/31 319 STOOL: Clostridium difficile Toxin A & B - ORD 01/31 210 URINE ROUT: Urine Culture - RECD 01/30 2225 LOWER RESP: Respiratory Culture - COLB 01/30 2225 LOWER RESP: Gram Stain - COLB 01/30 2121 BLOOD: Blood Culture - RECD 01/30 2105 BLOOD: Blood Culture - RECD Assessment/Plan Assessment: Patient is a 82-year-old male with recently diagnosed lesser curvature gastric carcinoma status post first cycle of chemotherapy, CAD status post PCI/HARPREET recently, hypertension presented with acute desaturation after recent episode of diarrhea. Due to recent episode of hypotension his lisinopril was held and Lasix dose was reduced. Started on opiates yesterday. He received Neupogen yesterday and his white count is found to be elevated with bandemia today. Vital signs were stable. Physical examination significant for obtundation with dry mucous membranes, fine crackles in the left lung base with decreased breath sounds on the right lung base. Imaging did show bibasilar airspace disease which was chronic. Differentials Acute infection worsening his diastolic heart failure Aspiration following recent intake of opiates Colitis status post diarrhea C. difficile in immunosuppressed patient with recent hospitalization Evolving pneumonia Plan Admit to telemetry floor Acute hypoxic hypercarbic respiratory failure Secondary to infection versus diastolic failure versus overall deconditioning. Oxygen requirement improved after lasix dose and brisk increase in urine output. Although clinical picture overall is not overt failure/exacerbation, his response correlates with failure. His recent diarrhea with aggressive resuscitation could support acute exacerbation as well. Given elevated white count in an immunosuppressed patient with bandemia supports coverage with broad- spectrum antibiotics. * IV Vanco and ceftaz * Blood cultures/urine culture/lower respiratory culture * Trend lactic acid * CT abdomen and pelvis with IV contrast once feasible as he already received CT angiogram. Speaking with radiology - recommended to do around 5:30 in the evening. * ABG in am did show hypercarbia with worsening of acidosis. * Mildly hypotensive after lasix but recovered with gentle bolus of 250ml * Consult cardiology * ? Aspiration given recent opitae intake --- follow up with Xray * CT head for confusion ?? C.diff in the setting of recent hospitalization, immunosuppression Send for C.diff. Chronic medical conditions HFpEF, CAD s/p PCI with HARPREET last october - continue plavix, ASA, metoprolol GERD - continue Pantop No opiates given confusion DVT prophylaxis SC heparin Code status full code Problem List: 1. Acute respiratory failure with hypoxia and hypercarbia 2. HTN (hypertension) 3. HLD (hyperlipidemia) Pain Ratin Pain Location: n/a Pain Goal: Pain 4 or less Pain Plan: tyelnol prn Tomorrow's Labs & Rationales: cbc to monitor white count bep to monitor Na, K
[2018-01-31 06:55] VITALS: BP 112/50
--- NOTE | 2018-01-31 09:47 | PN- Att Addend ---
Attending Addendum Attending Brief Note Patient seen and examined. Admitted overnight with acute hypoxic respiratory failure secondary to bibasilar pneumonia. Initially required nonrebreather in the emergency room and improved and was placed on 2 L nasal cannula. Earlier this morning patient was noted to be confused in any respiratory distress. ABG was done that showed severe respiratory acidosis with CO2 retention. He was placed on BiPAP therapy. About an hour after being placed on BiPAP therapy evaluated him. I found him easily arousable. Alert and oriented 3. Not in any distress. He denies chest pain or palpitations. Denies shortness of breath or cough. It is noted that patient on presentation had no symptoms and was brought in for evaluation only on account of hypoxia noted by patient's visiting nurse. Family did reports lethargy at home. It is also noted that patient was recently started on opiates. On telemetry overnight he was noted to have PACs with 5 beat run of ventricular tachycardia. Vital Signs Date Time Temp Pulse Resp B/P B/P Pulse O2 O2 Flow FiO2 Mean Ox Delivery Rate 01/31 0845 85 92 01/31 0758 BIPAP 30% 01/31 0708 88 94 01/31 0655 98.2 85 20 112/50 95 Nasal Cannula 01/31 0300 118/50 / 0130 130/64 03/ 2320 98.2 93 20 100/52 98 Nasal 2.0L Cannula 01/30 2246 Nasal 2.0L Cannula 01/30 2208 97.1 97 20 136/63 99 Nasal 2.0L Cannula / 2039 97.3 95 18 132/63 96 Nasal 2.0L Cannula / 1933 97.6 96 18 131/81 96 Nasal 2.0L Cannula / 1816 98.2 97 18 145/65 95 Nasal 2.0L Cannula / 1646 96 Nasal 2.0L Cannula / 1621 93 18 96 Nasal 2.0L Cannula / 1601 99.2 84 20 129/60 98 Nasal 4.0L Cannula General appearance: Alert and oriented 3. Currently on BiPAP therapy. Heart: S1-S2 regular. Lungs: Fair entry bilaterally with no added sounds. Abdomen: Soft, nontender with normal bowel sounds. Extremities: +1 pedal edema in the feet only. Skin: Intact with no rashes. Neurologic: No gross focal deficit. Follows commands. Moves all extremities spontaneously. Laboratory Tests 01/31/18 0645: pH 7.16 *L, pCO2 86 *H, pO2 71 L, HCO3 30 H, ABG O2 Sat (Measured) 92.0 L, P- 50 (Temp Corrected) N, Carboxyhemoglobin 1.0 L, O2 Concentration % 2L, O2 Delivery Method N/C, Phlebotomy Draw Site LEFT RADIAL 01/31/18 05: Troponin I 0.03 01/31/1815: Anion Gap 4 L, Estimated GFR > 60, BUN/Creatinine Ratio 22.7 01/30/182251: Lactic Acid Cancelled 01/30/182217: Troponin I 0.03 01/30/182217: Lactic Acid 0.8 01/30/181953: Urine Color YEL, Urine Clarity CLEAR, Urine pH 5.5, Ur Specific [place] >= 1.030 , Urine Protein 30 H, Urine Ketones TRACE H, Urine Nitrite NEG, Urine Bilirubin NEG@[email or web address], Urine Urobilinogen 0.2, Ur Leukocyte Esterase NEG, Ur Microscopic SEDIMENT EXAMINED, Urine RBC RARE, Urine WBC 3-5 H, Ur Epithelial Cells OCCAS, Hyaline Casts MANY H, Granular Casts FEW H, Urine Mucus MANY H, Urine Hemoglobin NEG, Urine Glucose NEG 01/30/18 1633: Anion Gap 5, Estimated GFR > 60, BUN/Creatinine Ratio 23.3, Glucose 124 H, Lactic Acid 1.0, Calcium 7.9 L, Total Bilirubin 0.4, AST 40, ALT 30, Alkaline Phosphatase 118, Troponin I 0.04, Qxc-I-Irzqbswnpbt Pept 2380 H, Total Protein 4.6 L, Albumin 2.5 L, Globulin 2.1, Albumin/Globulin Ratio 1.2, CBC w Diff MAN DIFF ORDERED, RBC 3.37 L, MCV 88.9, MCH 27.9, MCHC 31.4 L, RDW 17.2 H, MPV 7.7, Gran % 85.2 H, Lymphocytes % 6.5 L, Monocytes % 6.9, Eosinophils % 0.9, Basophils % 0.5, Absolute Granulocytes 20.6 H, Segmented Neutrophils 43, Band Neutrophils 14 H, Absolute Lymphocytes 1.6, Lymphocytes 10 L, Monocytes 7, Absolute Monocytes 1.7 H, Eosinophils 1, Absolute Eosinophils 0.2, Absolute Basophils 0.1, Metamyelocytes 12 H, Myelocytes 13 H, Nucleated RBCs 2 H, Platelet Estimate ADEQUATE, Polychromasia 2+, Basophilic Stippling 2+, Anisocytosis 1+ 01/30/18 1615: pH 7.32 L, pCO2 59 H, pO2 82, HCO3 30 H, ABG O2 Sat (Measured) 93.0 L, P-50 (Temp Corrected) N, Carboxyhemoglobin 1.3 L, O2 Concentration % 4L, Temperature 99.2, O2 Delivery Method NC, Phlebotomy Draw Site LEFT RADIAL Microbiology 01/31 031 STOOL: Clostridium difficile Toxin A & B - COLB 01/31 021 URINE ROUT: Urine Culture - RECD 01/30 2225 LOWER RESP: Respiratory Culture - COLB 01/30 2225 LOWER RESP: Gram Stain - COLB 01/30 2121 BLOOD: Blood Culture - RECD 01/30 2105 BLOOD: Blood Culture - RECD Problems: 1. Acute hypoxic and hypercapnic respiratory failure. 2. Severe respiratory acidosis. 3. Recently diagnosed gastric cancer started on chemotherapy. 4. Chronic systolic heart failure. 5. Coronary artery disease status post non-ST elevation AL and PCI with drug- eluting stent placement 6. Ventricular ectopy. Plan: -Continue BiPAP support. Obtain pulmonary consultation. -Continue empiric antibiotic therapy with vancomycin and ceftazidime for coverage of multidrug-resistant pathogens given his recent hospitalization. However it is noted the patient is afebrile. It is unclear whether the degree of bibasilar disease noted on imaging will cause this degree of hypoxemia. -Check urine toxicology. -Follow blood cultures. Obtain sputum cultures if possible. -There was a report of diarrhea on presentation. Currently not having any loose stools. Send stool for C. difficile if possible. -Please obtain oncology consultation given his recently diagnosed cancer and 5 days of chemotherapy. Patient's received Neupogen last week and this may be contributing to his leukocytosis however it was reported that he is WBC was within normal limits recently. Repeat CBCs this morning. -Obtain cardiology consultation for his ventricular ectopy. Continue beta- kortney therapy. Potassium is currently within normal limits. Check magnesium level. Patient does have history of systolic dysfunction with EF of 35% in October. Currently cardiac enzymes are negative.
--- NOTE | 2018-01-31 11:38 | Cons- Pulmonary ---
General Information and HPI Consulting Request Date of Consult: 01/31/18 Requested By: Dr. Ricardo Reason for Consult: hypercarbic respiratory failure Source of Information: patient Exam Limitations: no limitations History of Present Illness: Consultation for dyspnea/hypercarbic respiratory failure. Patient is an 82 year old man. Hx significant for gastric cancer underoing chemotherapy. HTN, diastolic chf, hx of osteomyelitis. Hx of ACS with pci. Presented secondary to desaturation in the 70's for hypoxemic respiratory failure. Also noted to have hypercarbic respiratory failure. He has had a hx of presumed COPD however no therapy recently or workup per family, also has tried bipap in the past due to hypercarbia. Last chemotherapy last week, sees Dr. Jaramillo at [place]. Patient feels much better after initiation of bipap and improved ABG, reviewed in chart. - now - bipap settings changed to 18/05. Imaging suggestive of bibasilar atelectasis. WBC 24. Recent diarrhea suggested workup at a recent ER visit (which required fluids) at [place], at that time pt declined c.diff sampling. Allergies/Medications Allergies: Coded Allergies: No Known Allergies (12/06/16) Home Med List: Aspirin (Ecotrin*) 81 MG TABLET.DR 1 TAB PO DAILY HEART/BLOOD (Reported) Atorvastatin Calcium (Lipitor) 80 MG TABLET 1 TAB PO DAILY CHOLESTEROL ( Reported) Clopidogrel Bisulfate (Clopidogrel) 75 MG TABLET 1 TAB PO DAILY HEART HEALTH Diphenoxylate HCl/Atropine (Lomotil 2.5-0.025 MG Tablet) 2.5 MG-0.025 MG TABLET 1 TAB PO AD DIARRHEA (Reported) Ferrous Sulfate (Ferosul) 325 MG (65 MG IRON) TABLET 1 TAB PO TID SUPPLEMENT (Reported) Furosemide (Lasix) 20 MG TABLET 1 TAB PO AD DIURETIC (Reported) Ipratropium/Albuterol Sulfate (Iprat-Albut 0.5-3(2.5) MG/3 Ml) 0.5 MG-3 MG (2.5 MG BASE)/3 ML AMPUL.NEB 1 VIAL INH Q6H RESP. (WHILE AWAKE) (Reported) Lisinopril (Zestril) 2.5 MG TABLET 1 TAB PO QHS BP (Reported) Melatonin 3 MG TABLET 2 TAB PO QHS SUPPLEMENT (Reported) Metoprolol Succinate 50 MG TAB.ER.24H 1 TAB PO DAILY HEART/BP (Reported) Nutritional Supplement (Resource 2.0) (Unknown Strength) LIQUID 360 ML PO DAILY SUPPLEMENT (Reported) Oxycodone HCl 5 MG TABLET 1 TAB PO Q4H PRN PAIN (Reported) Pantoprazole Sodium (Protonix) 40 MG TABLET.DR 1 TAB PO BID GERD Sennosides/Docusate Sodium (Senna S Tablet) 8.6 MG-50 MG TABLET 2 TAB PO BID GI (Reported) Current Medications: Current Medications Sig/Lacey Start time Last Medication Dose Route Stop Time Status Admin Aspirin Buffered 81 MG DAILY 01/31 1000 AC PO Atorvastatin Calcium 80 MG 1700 01/31 1700 AC PO Ceftazidime 1,000 MG IQ8 01/31 0000 AC 01/31 IV 0752 Clopidogrel Bisulfate 75 MG DAILY 01/31 1000 AC PO Diphenoxylate HCl/ 2.5 MG DAILY 01/31 1000 CAN Atropine PO Ferrous Sulfate 325 MG DAILY 01/31 1000 AC PO Furosemide 0 .STK-MED ONE 01/30 1736 DC IV Furosemide 40 MG ONCE ONE 01/30 1730 DC 01/30 IV 01/30 1731 1755 Melatonin 6 MG AT BEDTIME 01/31 2200 AC PO Metoprolol Succinate 50 MG DAILY 01/31 1000 AC PO Omeprazole 40 MG DAILY AC 01/31 0700 AC PO Ondansetron HCl 0 .STK-MED ONE 01/30 1742 DC .ROUTE Sodium Chloride 250 ML BOLUS ONE 01/30 2330 DC 01/30 IV 01/31 0029 2329 Vancomycin HCl 1,000 MG DAILY 01/30 2300 AC 01/31 Dextrose/Water 250 ML IV 0751 Review of Systems Comments 18 point review of systems was performed and reviewed. Please see pertinent positives and pertinent negatives in the HPI. Otherwise ROS is negative. Past History Travel History Traveled to [place] past 21 day No Medical History Blood Transfusion Hx: No Neurological: NONE EENT: NONE Cardiovascular: hypertension, hyperlipidemia, NSTEMI (11/05/17 f/b drugeluting stent), CARDIAC STENT Respiratory: NONE Gastrointestinal: GI BLEED- refused w/u for Fe def anemia Hepatic: cholelithiasis Renal: EVELIN- resolved Musculoskeletal: NONE Psychiatric: NONE Endocrine: NONE Blood Disorders: anemia Cancer(s): NONE TEXTURE ARTIST/Reproductive: 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 FH: diabetes mellitus FATHER, , Age 30-40; Cause: Unknown cause of morbidity or mortality. Relation not specified for: *No pertinent family history Psychosocial History Where Do You Live? Home Who Do You Live With? self Services at Home: None Primary Language: Com[place] Smoking Status: Former Smoker ETOH Use: denies use Illicit Drug Use: denies illicit drug use Living Will? yes Power of Insert Molding Operator/HCP? yes Name of POA/HCP: dtr- Delia Wilma; son- Edu Merritt Functional Ability ADLs Independent: dressing, eating, toileting, bathing. Ambulation: independent IADLs Independent: shopping, housework, finances, food prep, telephone, transportation , medication admin. ECHO Results (as available) EF% 35 Exam & Diagnostic Data Last 24 Hrs of Vital Signs/I&O Vital Signs Date Time Temp Pulse Resp B/P B/P Pulse O2 O2 Flow FiO2 Mean Ox Delivery Rate 01/31 1109 88 94 01/31 0845 85 92 01/31 0758 BIPAP 30% 01/31 0708 88 94 01/31 0655 98.2 85 20 112/50 95 Nasal Cannula 01/31 0300 118/50 03 0130 130/64 03 2320 98.2 93 20 100/52 98 Nasal 2.0L Cannula 01/30 2246 Nasal 2.0L Cannula 01/30 2208 97.1 97 20 136/63 99 Nasal 2.0L Cannula / 2039 97.3 95 18 132/63 96 Nasal 2.0L Cannula / 1933 97.6 96 18 131/81 96 Nasal 2.0L Cannula / 1816 98.2 97 18 145/65 95 Nasal 2.0L Cannula / 1646 96 Nasal 2.0L Cannula / 1621 93 18 96 Nasal 2.0L Cannula / 1601 99.2 84 20 129/60 98 Nasal 4.0L Cannula Intake & Output 01/31 1600 01/31 0800 01/31 0000 Intake Total 500 Output Total Balance 500 Intake, IV 500 Patient 173 lb 173 lb Weight Weight Bed scale Measurement Method Physical Exam Other Physical Findings: Generally - Awake, alert on bipap Head and neck - ncat Cardiovascular - S1, S2 Lungs - rare rhonchi, transmitted bs Abdomen - Bowel sounds positive, soft, non-tender Extremities - without edema Last 48 Hrs of Labs/Edilberto: Laboratory Tests 01/31/18 1040: pH 7.27 *L, pCO2 77 *H, pO2 78 L, HCO3 35 H, ABG O2 Sat (Measured) 94.0 L, P- 50 (Temp Corrected) N, Carboxyhemoglobin 0.9 L, O2 Concentration % 30%, Respiration Rate 22, O2 Delivery Method BIPAP, Vent Mode ST, Expiratory Pressure 4, Inspiratory Pressure 18, Phlebotomy Draw Site LEFT RADIAL 01/31/18 0645: pH 7.16 *L, pCO2 86 *H, pO2 71 L, HCO3 30 H, ABG O2 Sat (Measured) 92.0 L, P- 50 (Temp Corrected) N, Carboxyhemoglobin 1.0 L, O2 Concentration % 2L, O2 Delivery Method N/C, Phlebotomy Draw Site LEFT RADIAL 01/31/18 0515: Troponin I 0.03 01/31/18 0515: Anion Gap 4 L, Estimated GFR > 60, BUN/Creatinine Ratio 22.7 01/30/18 2252: Lactic Acid Cancelled 01/30/188: Troponin I 0.03 01/30/18 2218: Lactic Acid 0.8 01/30/184: Urine Color YEL, Urine Clarity CLEAR, Urine pH 5.5, Ur Specific [place] >= 1.030 , Urine Protein 30 H, Urine Ketones TRACE H, Urine Nitrite NEG, Urine Bilirubin [email or web address]@[email or web address], Urine Urobilinogen 0.2, Ur Leukocyte Esterase NEG, Ur Microscopic SEDIMENT EXAMINED, Urine RBC RARE, Urine WBC 3-5 H, Ur Epithelial Cells OCCAS, Hyaline Casts MANY H, Granular Casts FEW H, Urine Mucus MANY H, Urine Hemoglobin NEG, Urine Glucose NEG 01/30/18 1633: Anion Gap 5, Estimated GFR > 60, BUN/Creatinine Ratio 23.3, Glucose 124 H, Lactic Acid 1.0, Calcium 7.9 L, Total Bilirubin 0.4, AST 40, ALT 30, Alkaline Phosphatase 118, Troponin I 0.04, Xly-I-Idegrdqkaru Pept 2380 H, Total Protein 4.6 L, Albumin 2.5 L, Globulin 2.1, Albumin/Globulin Ratio 1.2, CBC w Diff MAN DIFF ORDERED, RBC 3.37 L, MCV 88.9, MCH 27.9, MCHC 31.4 L, RDW 17.2 H, MPV 7.7, Gran % 85.2 H, Lymphocytes % 6.5 L, Monocytes % 6.9, Eosinophils % 0.9, Basophils % 0.5, Absolute Granulocytes 20.6 H, Segmented Neutrophils 43, Band Neutrophils 14 H, Absolute Lymphocytes 1.6, Lymphocytes 10 L, Monocytes 7, Absolute Monocytes 1.7 H, Eosinophils 1, Absolute Eosinophils 0.2, Absolute Basophils 0.1, Metamyelocytes 12 H, Myelocytes 13 H, Nucleated RBCs 2 H, Platelet Estimate ADEQUATE, Polychromasia 2+, Basophilic Stippling 2+, Anisocytosis 1+ 01/30/18 1615: pH 7.32 L, pCO2 59 H, pO2 82, HCO3 30 H, ABG O2 Sat (Measured) 93.0 L, P-50 (Temp Corrected) N, Carboxyhemoglobin 1.3 L, O2 Concentration % 4L, Temperature 99.2, O2 Delivery Method NC, Phlebotomy Draw Site LEFT RADIAL Assessment/Plan Impression/Plan: Impressoin Consultation for dyspnea/hypercarbic respiratory failure. Patient is an 82 year old man. Hx significant for gastric cancer underoing chemotherapy. HTN, diastolic chf, hx of osteomyelitis. Hx of ACS with pci. Presented secondary to desaturation in the 70's for hypoxemic respiratory failure. Also noted to have hypercarbic respiratory failure. He has had a hx of presumed COPD however no therapy recently or workup per family, also has tried bipap in the past due to hypercarbia. Last chemotherapy last week, sees Dr. Jaramillo at [place]. Patient feels much better after initiation of bipap and improved ABG, reviewed in chart. - now - bipap settings changed to 18/05. Imaging suggestive of bibasilar atelectasis. WBC 24. Recent diarrhea suggested workup at a recent ER visit (which required fluids) at [place], at that time pt declined c.diff sampling. Plan -begin solumedrol 40mg iv q12h - likely underlying COPD with exacerbation -repeat abg later this afternoon -cont bipap -trc/nebs -c.diff and sputum cx -recommend ID consultation -cardiology was consulted given venricular ectopy DVT prophylaxis at all times Consult Acknowledgment - Thank you for your consult request.
[2018-01-31 14:00] VITALS: BP 114/60
--- NOTE | 2018-01-31 14:10 | CT SCAN REPORT ---
EXAMINATION: CT HEAD WITHOUT CONTRAST CLINICAL INFORMATION: 82-year-old man with confusion. COMPARISON: None TECHNIQUE: Contiguous axial imaging was performed from the skull base to vertex without intravenous administration of contrast. DLP: 698 mGy-cm FINDINGS: There is no evidence of acute intracranial hemorrhage or territorial infarction. No abnormal mass effect or midline shift is seen. Hilton to white matter differentiation is well preserved. No extra-axial fluid collections are identified. The ventricles are normal in size. Moderate chronic microvascular ischemic changes are seen throughout the supratentorial white matter. There may be a chronic lacunar infarct in the left paramedian kerri. The osseous structures and soft tissues are normal. The mastoid air cells and visualized portions of the paranasal sinuses are well aerated. IMPRESSION: No acute intracranial pathology.
--- NOTE | 2018-01-31 14:20 | Event Note ---
Event Note Event Note: An oncology consultation was placed today, I spoke with the oncologist personal lines insurance agent Dr Pittman in the early afternoon who states that the patient will likely receive follow-up oncology recommendations on Friday. S: Patient remains acidotic after a trial of 15 minutes off BiPAP. Last Gas: 7.20/87/123/33.9. Settings 18/05 B: Patient is an 82-year-old male with recently diagnosed lesser curvature gastric carcinoma status post first cycle of chemotherapy, CAD status post PCI/ HARPREET recently, hypertension presented with desaturation down to the 70' s.Currently being treated for acute hypercarbic respiratory failure. Currently being treated empirically with Ceftazidime. A/R: Spoke with network director personal lines insurance agent Dr. Adams was recommended that the patient should be upgraded to a higher level of care. In addition we will also change steroids from IV 40 every 12 to IV 40 every 8. BiPAP settings are to be changed from: IPAP: 20/ EPAP:6. Rate: 24. Repeat ABG in 2 hours. A chest x-ray has also been ordered to rule out new pulmonary congestion. The patient's son Bill and [id number] were updated. Assistant Men'S Soccer Coach Informed. Will sign out to night team.
[2018-01-31 15:25] VITALS: BP 110/52
--- NOTE | 2018-01-31 15:57 | Cons- Infect Disease ---
General Information and HPI Consulting Request Date of Consult: 01/31/18 Requested By: Felipa Garza MD Reason for Consult: abx advice Source of Information: patient, primary team Exam Limitations: clinical condition History of Present Illness: 82-year-old male with past medical history of hypertension, hyperlipidemia, diastolic congestive heart failure, gastric cancer, lumbar osteomyelitis treated in 2016, ACS with recent PCI, and stomach cancer admitted 3/2 with hypoxemia ( 74% on room air). Patient feels much better after initiation of Bipap and improved ABG; imaging suggestive of bibasilar atelectasis, WBC 24k. Patient received chemotherapy last , and since then he has been feeling very weak and tired. he also received Neupogen inj. Recently his diuretic dose was decreased due to low BP. Patient also had diarrhea last 2 days and was taken to [facility] and blood work was done which showed a WBC of 8.1. Stool sample was not done. He was treated with IV fluids and sent home. The patient did not have any nausea, vomiting, melena, constipation, bloody vomiting, fever, chills, cough, shortness of breath, palpitation chest pain, abdominal pain, fall. Patient was recently admitted in [facility] in October and was evaluated by cert occupational therapy asst and found to have stomach cancer. Patient sees Dr. Jaramillo at [facility] for oncology. PICC line placed 3 weeks ago. He had 5-6 blood transfusion since October 2017 at [facility]. Patient had a drug-eluting stent placed in October 2017 at [facility] and during the same time he developed hospital-acquired pneumonia and was intubated. Allergies/Medications Allergies: Coded Allergies: No Known Allergies (12/06/16) Home Med List: Aspirin (Ecotrin*) 81 MG TABLET.DR 1 TAB PO DAILY HEART/BLOOD (Reported) Atorvastatin Calcium (Lipitor) 80 MG TABLET 1 TAB PO DAILY CHOLESTEROL ( Reported) Clopidogrel Bisulfate (Clopidogrel) 75 MG TABLET 1 TAB PO DAILY HEART HEALTH Diphenoxylate HCl/Atropine (Lomotil 2.5-0.025 MG Tablet) 2.5 MG-0.025 MG TABLET 1 TAB PO AD DIARRHEA (Reported) Ferrous Sulfate (Ferosul) 325 MG (65 MG IRON) TABLET 1 TAB PO TID SUPPLEMENT (Reported) Furosemide (Lasix) 20 MG TABLET 1 TAB PO AD DIURETIC (Reported) Ipratropium/Albuterol Sulfate (Iprat-Albut 0.5-3(2.5) MG/3 Ml) 0.5 MG-3 MG (2.5 MG BASE)/3 ML AMPUL.NEB 1 VIAL INH Q6H RESP. (WHILE AWAKE) (Reported) Lisinopril (Zestril) 2.5 MG TABLET 1 TAB PO QHS BP (Reported) Melatonin 3 MG TABLET 2 TAB PO QHS SUPPLEMENT (Reported) Metoprolol Succinate 50 MG TAB.ER.24H 1 TAB PO DAILY HEART/BP (Reported) Nutritional Supplement (Resource 2.0) (Unknown Strength) LIQUID 360 ML PO DAILY SUPPLEMENT (Reported) Oxycodone HCl 5 MG TABLET 1 TAB PO Q4H PRN PAIN (Reported) Pantoprazole Sodium (Protonix) 40 MG TABLET.DR 1 TAB PO BID GERD Sennosides/Docusate Sodium (Senna S Tablet) 8.6 MG-50 MG TABLET 2 TAB PO BID GI (Reported) Current Medications: Current Medications Sig/Lacey Start time Last Medication Dose Route Stop Time Status Admin Albuterol Sulfate 3 ML TID 01/31 1600 AC 01/31 INH 1411 Aspirin Buffered 81 MG DAILY 01/31 1000 AC PO Atorvastatin Calcium 80 MG 1700 01/31 1700 AC PO Ceftazidime 1,000 MG IQ8 01/31 0000 AC 01/31 IV 0752 Clopidogrel Bisulfate 75 MG DAILY 01/31 1000 AC PO Diphenoxylate HCl/ 2.5 MG DAILY 01/31 1000 CAN Atropine PO Ferrous Sulfate 325 MG DAILY 01/31 1000 AC PO Furosemide 0 .STK-MED ONE 01/30 1736 DC IV Furosemide 40 MG ONCE ONE 01/30 1730 DC 01/30 IV 01/30 1731 1755 Ipratropium Sharon 2.5 ML TID 01/31 1600 AC 01/31 INH 1411 Melatonin 6 MG AT BEDTIME 01/31 2200 AC PO Methylprednisolone 40 MG Q12 01/31 1339 AC IV Metoprolol Succinate 50 MG DAILY 01/31 1000 AC PO Omeprazole 40 MG DAILY AC 01/31 0700 AC PO Ondansetron HCl 0 .STK-MED ONE 01/30 1742 DC .ROUTE Sodium Chloride 250 ML BOLUS ONE 01/30 2330 DC 01/30 IV 01/31 0029 2329 Vancomycin HCl 1,000 MG DAILY 01/30 2300 AC 01/31 Dextrose/Water 250 ML IV 0751 Past History Travel History Traveled to [place] past 21 day No Medical History Blood Transfusion Hx: No Neurological: NONE EENT: NONE Cardiovascular: hypertension, hyperlipidemia, NSTEMI (11/05/17 f/b drugeluting stent), CARDIAC STENT Respiratory: NONE Gastrointestinal: GI BLEED- refused w/u for Fe def anemia Hepatic: cholelithiasis Renal: EVELIN- resolved Musculoskeletal: NONE Psychiatric: NONE Endocrine: NONE Blood Disorders: anemia Cancer(s): NONE SEASONAL DRIVER/Reproductive: NONE Other Medical Hx: OSTEOMYELITIS L2-L3/L3-L4 History of MRSA: No History of VRE: No History of CDIFF: No Isolation History: Standard Surgical History Surgical History: PCI/LAD drug eluting stent 11/05/17 Family History Relations & Conditions If Any: MOTHER, , Age 60+. FH: diabetes mellitus FATHER, , Age 30-40; Cause: Unknown cause of morbidity or mortality. Relation not specified for: *No pertinent family history Psychosocial History Where Do You Live? Home Who Do You Live With? self Services at Home: None Primary Language: Persian Smoking Status: Former Smoker ETOH Use: denies use Illicit Drug Use: denies illicit drug use Living Will? yes Power of Optical Lens Manufacturing Tech/HCP? yes Name of POA/HCP: dtr- Delia Dillon; son- Edu Merritt Functional Ability ADLs Independent: dressing, eating, toileting, bathing. Ambulation: independent IADLs Independent: shopping, housework, finances, food prep, telephone, transportation , medication admin. ECHO Results (as available) EF% 35 Review of Systems Comments ROS reviewed as noted, otherwise negative. Patient denies diarrhea or abd pain. No productive cough. Exam & Diagnostic Data Last 24 Hrs of Vital Signs/I&O Vital Signs Date Time Temp Pulse Resp B/P B/P Pulse O2 O2 Flow FiO2 Mean Ox Delivery Rate 01/31 1540 BIPAP 30% 01/31 1525 98.8 88 20 110/52 96 BIPAP 30% 01/31 1400 97.9 87 20 114/60 94 01/31 1400 79 98 01/31 1109 88 94 01/31 0845 85 92 01/31 0758 BIPAP 30% 01/31 0708 88 94 01/31 0655 98.2 85 20 112/50 95 Nasal Cannula 01/31 0300 118/50 03/03 0130 130/64 01/30 2320 98.2 93 20 100/52 98 Nasal 2.0L Cannula 01/30 2246 Nasal 2.0L Cannula 01/30 2208 97.1 97 20 136/63 99 Nasal 2.0L Cannula 01/30 2039 97.3 95 18 132/63 96 Nasal 2.0L Cannula 01/30 1933 97.6 96 18 131/81 96 Nasal 2.0L Cannula 01/30 1816 98.2 97 18 145/65 95 Nasal 2.0L Cannula 01/30 1646 96 Nasal 2.0L Cannula 01/30 1621 93 18 96 Nasal 2.0L Cannula 01/30 1601 99.2 84 20 129/60 98 Nasal 4.0L Cannula Intake & Output 01/31 1600 01/31 0800 01/31 0000 Intake Total 300 500 Output Total Balance 300 500 Intake, IV 300 500 Intake, Oral 0 Patient 173 lb 173 lb Weight Weight Bed scale Measurement Method Physical Exam Other Physical Findings: Generally - Awake, alert off Bipap Head and neck - ncat Neck No JVD Cardiovascular - S1, S2, no m/r/g Lungs - BS present, no rales Abdomen - Bowel sounds positive, soft, non-tender Extremities - without edema Last 24 Hours of Lab Results: Laboratory Tests 01/31 01/31 01/31 01/31 1511 1408 1040 0645 Blood Gas pH (7.35 - 7.45 PH) 7.33 L 7.27 *L 7.16 *L pCO2 (35 - 45 TORR) 67 *H 77 *H 86 *H pO2 (80 - 100 TORR) 99 78 L 71 L HCO3 (21 - 28 MEQ/L) 34 H 35 H 30 H ABG O2 Sat (Measured) (>96.0 %) 97.0 94.0 L 92.0 L P-50 (Temp Corrected) N N N Carboxyhemoglobin (1.5 - 5.0 %) 0.7 L 0.9 L 1.0 L O2 Concentration % 30% 30% 2L Respiration Rate (BPM) 22 22 O2 Delivery Method BIPAP BIPAP N/C Vent Mode ST ST Expiratory Pressure (CM H2O P) 6 4 Inspiratory Pressure (CM H2O P) 18 18 Chemistry Magnesium Pending Hematology CBC w Diff Pending WBC Pending RBC Pending Hgb Pending Hct Pending MCV Pending MCH Pending MCHC Pending RDW Pending Plt Count Pending MPV Pending Miscellaneous Phlebotomy Draw Site LEFT RADIAL LEFT RADIAL LEFT RADIAL 01/31 01/31 01/30 01/30 01/30 0515 0515 2251 2218 2218 Chemistry Sodium (137 - 145 mmol/L) 136 L Potassium (3.5 - 5.1 mmol/L) 5.1 Chloride (98 - 107 mmol/L) 93 L Carbon Dioxide (22 - 30 mmol/L) 39 H Anion Gap (5 - 16) 4 L BUN (9 - 20 mg/dL) 25 H Creatinine (0.7 - 1.2 mg/dL) 1.1 Estimated GFR (>60 ml/min) > 60 BUN/Creatinine Ratio (7 - 25 %) 22.7 Lactic Acid (0.7 - 2.1 mmol/L) Cancelled 0.8 Magnesium (1.6 - 2.3 mg/dL) 1.8 Troponin I (<0.11 ng/ml) 0.03 0.03 01/30 1633 Chemistry Sodium (137 - 145 mmol/L) 135 L Potassium (3.5 - 5.1 mmol/L) 4.6 Chloride (98 - 107 mmol/L) 95 L Carbon Dioxide (22 - 30 mmol/L) 35 H Anion Gap (5 - 16) 5 BUN (9 - 20 mg/dL) 21 H Creatinine (0.7 - 1.2 mg/dL) 0.9 Estimated GFR (>60 ml/min) > 60 BUN/Creatinine Ratio (7 - 25 %) 23.3 Glucose (65 - 99 mg/dL) 124 H Lactic Acid (0.7 - 2.1 mmol/L) 1.0 Calcium (8.4 - 10.2 mg/dL) 7.9 L Total Bilirubin (0.2 - 1.3 mg/dL) 0.4 AST (17 - 59 U/L) 40 ALT (21 - 72 U/L) 30 Alkaline Phosphatase (< 127 U/L) 118 Troponin I (<0.11 ng/ml) 0.04 [id number] Pept (<125 pg/mL) 2380 H Total Protein (6.3 - 8.2 g/dL) 4.6 L Albumin (3.5 - 5.0 g/dL) 2.5 L Globulin (1.9 - 4.2 gm/dL) 2.1 Albumin/Globulin Ratio (1.1 - 2.2 %) 1.2 Hematology CBC w Diff MAN DIFF ORDERED WBC (4.8 - 10.8 /CUMM) 24.2 H RBC (4.70 - 6.10 /CUMM) 3.37 L Hgb (14.0 - 18.0 G/DL) 9.4 L Hct (42 - 52 %) 29.9 L MCV (80.0 - 94.0 FL) 88.9 MCH (27.0 - 31.0 PG) 27.9 MCHC (33.0 - 37.0 G/DL) 31.4 L RDW (11.5 - 14.5 %) 17.2 H Plt Count (130 - 400 /CUMM) 231 MPV (7.4 - 10.4 FL) 7.7 Gran % (42.2 - 75.2 %) 85.2 H Lymphocytes % (20.5 - 51.1 %) 6.5 L Monocytes % (1.7 - 9.3 %) 6.9 Eosinophils % (0 - 5 %) 0.9 Basophils % (0.0 - 2.0 %) 0.5 Absolute Granulocytes (1.4 - 6.5 /CUMM) 20.6 H Segmented Neutrophils (42.2 - 75.2 %) 43 Band Neutrophils (0.0 - 5.0 %) 14 H Absolute Lymphocytes (1.2 - 3.4 /CUMM) 1.6 Lymphocytes (20.5 - 51.1 %) 10 L Monocytes (1.7 - 9.3 %) 7 Absolute Monocytes (0.10 - 0.60 /CUMM) 1.7 H Eosinophils (0 - 5.0 %) 1 Absolute Eosinophils (0.0 - 0.7 /CUMM) 0.2 Absolute Basophils (0.0 - 0.2 /CUMM) 0.1 Metamyelocytes (0.0 - 1.0 %) 12 H Myelocytes (0 - 0 %) 13 H Nucleated RBCs (0.0 - 0.0 /100WBC) 2 H Platelet Estimate (ADEQUATE) ADEQUATE Polychromasia 2+ Basophilic Stippling 2+ Anisocytosis 1+ Urines Urine Color (YEL,AMB,STR) YEL Urine Clarity (CLEAR) CLEAR Urine pH (5.0 - 8.0) 5.5 Ur Specific [place] (1.001 - 1.035) >= 1.030 Urine Protein (NEG,<30 MG/DL) 30 H Urine Ketones (NEG) TRACE H Urine Nitrite (NEG) NEG Urine Bilirubin (NEG) NEG@ICTO Urine Urobilinogen (0.1 - 1.0 EU/dl) 0.2 Ur Leukocyte Esterase (NEG) NEG Ur Microscopic SEDIMENT EXAMINED Urine RBC (0 - 5 /HPF) RARE Urine WBC (0 - 2 /HPF) 3-5 H Ur Epithelial Cells (NONE,FEW) OCCAS Hyaline Casts (0/LPF) MANY H Granular Casts (NONE /LPF) FEW H Urine Mucus (FEW,NONE) MANY H Urine Hemoglobin (NEG) NEG Urine Glucose (N MG/DL) NEG 01/30 1615 Blood Gas pH (7.35 - 7.45 PH) 7.32 L pCO2 (35 - 45 TORR) 59 H pO2 (80 - 100 TORR) 82 HCO3 (21 - 28 MEQ/L) 30 H ABG O2 Sat (Measured) (>96.0 %) 93.0 L P-50 (Temp Corrected) N Carboxyhemoglobin (1.5 - 5.0 %) 1.3 L O2 Concentration % 4L Temperature (97.0 - 100.0 FARH) 99.2 O2 Delivery Method NC Miscellaneous Phlebotomy Draw Site LEFT RADIAL Last 24 Hours of Edilberto Results: SPEC #: [id number] NICHELLE: 01/31/18 STATUS: COLB RECD: - SUBM DR: Curt ERICKSON,Arabella SOURCE: LOWER RESP ENTR: 01/31/[address]: Felipa Garza MD SPDESC: SPUTUM Jules ERICKSON,Miguelito Nunez ORDERED: LOWER RESPIRATO Procedure Result LOWER RESPIRATO PENDING RECEIPT SPEC #: [id number] NICHELLE: 01/30/18 STATUS: RES RECD: 01/30/[address]: Nathaly ERICKSON,Taurus Lewis SOURCE: BLOOD ENTR: 01/30/[address]: Jules ERICKSON,Miguelito Nunez SPDESC: 2ND/VENOUS ORDERED: BLOOD CULTURE Procedure Result > BLOOD CULTURE REPORT Preliminary 01/31/181404 No growth after 1 day incubation. Specimen is examined continuously for 5 days before final report unless culture becomes positive. Diagnostic Data Recent Imaging Findings: CTA IMPRESSION: No CT evidence for pulmonary embolism. Dependent bibasilar airspace disease. Cholelithiasis without evidence of cholecystitis. DICTATED BY: Edu Stapleton MD DATE/TIME DICTATED:01/30/181829 HIDE OR SKIN BUFFER:MARIE DATE/TIME TRANSCRIBED:01/30/181829 CXR IMPRESSION: Limited evaluation due to low lung volumes. There is streaky bibasilar airspace disease, likely atelectasis. Right PICC line in place. DICTATED BY: dEu Stapleton MD DATE/TIME DICTATED:01/30/181701 HIDE OR SKIN BUFFER:MARIE DATE/TIME TRANSCRIBED:01/30/181701 Assessment/Plan Assessment/Plan Impression: 82-year-old male with past medical history of hypertension, hyperlipidemia, diastolic congestive heart failure, gastric cancer, lumbar osteomyelitis treated in 2017, ACS with recent PCI, and stomach cancer was sent to the hospital on 01/30 with hypoxemia. Hypercarbic resp failure; ? aspiration pneumonia Leukocytosis (? lung infection ? secondary to neupogen) H/o recent diarrhea; r/o C. difficile infection Suggestion: 1. Trend CBC, BMP. Aspiration precautions. 2. Obtain nasal MRSA surv cx; if negative D/C iv vancomycin. 3. Currently treated empirically w/ iv ceftazidime pend sputum cx results. Consult Acknowledgment - Thank you for your consult request.
[2018-01-31 16:33] LABS: ABSOLUTE BASOPHIL COUNT 0 /CUMM (0.0-0.2); ABSOLUTE EOSINOPHIL COUNT 0.1 /CUMM (0.0-0.7); ABSOLUTE GRANULOCYTE CT 25.5 /CUMM (1.4-6.5); ABSOLUTE LYMPH COUNT 1.3 /CUMM (1.2-3.4); ABSOLUTE MONOCYTE COUNT 2.7 /CUMM (0.10-0.60); BASOPHIL % 0.1 % (0.0-2.0); EOSINOPHIL % 0.4 % (0-5); GRANULOCYTE % 86.1 % (42.2-75.2); HEMATOCRIT 30.1 % (42-52); MEAN CORPUSCULAR HGB 28.8 PG (27.0-31.0); MEAN CORPUSCULAR HGB CONC 31.9 G/DL (33.0-37.0); MEAN CORPUSCULAR VOLUME 90.5 FL (80.0-94.0); MEAN PLATELET VOLUME 7.8 FL (7.4-10.4); PLATELET COUNT 225 /CUMM (130-400); RBC DISTRIBUTION WIDTH 17.7 % (11.5-14.5); RED BLOOD CELL CT 3.33 /CUMM (4.70-6.10)
[2018-01-31 16:41] LABS: WHITE BLOOD CELL COUNT 29.6 /CUMM (4.8-10.8)
[2018-01-31 20:08] VITALS: BP 138/50
--- NOTE | 2018-01-31 20:17 | RADIOLOGY REPORT ---
EXAMINATION: XR CHEST PORTABLE CLINICAL INFORMATION: Hypoxia. Hypercarbia. COMPARISON: Chest radiography 01/30/2018. TECHNIQUE: Portable frontal view of the chest was obtained. FINDINGS: Patient rotation noted. The lungs are mildly hypoexpanded. There is patchy left midlung opacification which is new/increased from prior exam. No new right lung consolidation. No convincing overt pulmonary edema. No large pleural effusion. No pneumothorax. Right-sided PICC line. Mediastinal contours are unchanged. No acute osseous abnormalities. IMPRESSION: New hazy patchy left midlung opacification. Please correlate for any clinical symptoms of pneumonia.
--- NOTE | 2018-01-31 21:11 | Cons- Cardiology ---
General Information and HPI Consulting Request Date of Consult: 01/31/18 Requested By: Felipa Garza MD Reason for Consult: Coronary artery disease, respiratory failure History of Present Illness: The patient is an 82-year-old male with history of coronary artery disease, status post recent non-ST elevation [place] with stent placement, hypertension, hyperlipidemia, diastolic heart failure. He was found by his visiting nurse to be saturating 74% on room air. The patient had chemotherapy last and has been feeling weak and tired since then. He had diarrhea for 2 days and was taken to [place] for evaluation. He was treated with IV fluids and sent home. He had a drug-eluting stent placed in 2017, and at that time he developed hospital- acquired pneumonia requiring intubation. No chest pain. No palpitations. The patient is a poor historian. Allergies/Medications Allergies: Coded Allergies: No Known Allergies (12/06/16) Home Med List: Aspirin (Ecotrin*) 81 MG TABLET.DR 1 TAB PO DAILY HEART/BLOOD (Reported) Atorvastatin Calcium (Lipitor) 80 MG TABLET 1 TAB PO DAILY CHOLESTEROL ( Reported) Clopidogrel Bisulfate (Clopidogrel) 75 MG TABLET 1 TAB PO DAILY HEART HEALTH Diphenoxylate HCl/Atropine (Lomotil 2.5-0.025 MG Tablet) 2.5 MG-0.025 MG TABLET 1 TAB PO AD DIARRHEA (Reported) Ferrous Sulfate (Ferosul) 325 MG (65 MG IRON) TABLET 1 TAB PO TID SUPPLEMENT (Reported) Furosemide (Lasix) 20 MG TABLET 1 TAB PO AD DIURETIC (Reported) Ipratropium/Albuterol Sulfate (Iprat-Albut 0.5-3(2.5) MG/3 Ml) 0.5 MG-3 MG (2.5 MG BASE)/3 ML AMPUL.NEB 1 VIAL INH Q6H RESP. (WHILE AWAKE) (Reported) Lisinopril (Zestril) 2.5 MG TABLET 1 TAB PO QHS BP (Reported) Melatonin 3 MG TABLET 2 TAB PO QHS SUPPLEMENT (Reported) Metoprolol Succinate 50 MG TAB.ER.24H 1 TAB PO DAILY HEART/BP (Reported) Nutritional Supplement (Resource 2.0) (Unknown Strength) LIQUID 360 ML PO DAILY SUPPLEMENT (Reported) Oxycodone HCl 5 MG TABLET 1 TAB PO Q4H PRN PAIN (Reported) Pantoprazole Sodium (Protonix) 40 MG TABLET.DR 1 TAB PO BID GERD Sennosides/Docusate Sodium (Senna S Tablet) 8.6 MG-50 MG TABLET 2 TAB PO BID GI (Reported) Current Medications: Current Medications Sig/Lacey Start time Last Medication Dose Route Stop Time Status Admin Albuterol Sulfate 3 ML TID 01/31 1600 AC 01/31 INH 1953 Aspirin Buffered 81 MG DAILY 01/31 1000 AC PO Atorvastatin Calcium 80 MG 1700 01/31 1700 AC PO Ceftazidime 1,000 MG IQ8 01/31 0000 AC 01/31 IV 1602 Clopidogrel Bisulfate 75 MG DAILY 01/31 1000 AC PO Diphenoxylate HCl/ 2.5 MG DAILY 01/31 1000 CAN Atropine PO Ferrous Sulfate 325 MG DAILY 01/31 1000 AC PO Ipratropium [place] 2.5 ML TID 01/31 1600 AC 01/31 INH 1953 Magnesium Sulfate 1 GM ONCE ONE 01/31 1915 AC 01/31 Dextrose/Water 100 ML IV 01/31 2314 2018 Melatonin 6 MG AT BEDTIME 01/31 2200 AC PO Methylprednisolone 40 MG Q8 01/31 2200 AC IV Methylprednisolone 40 MG Q12 01/31 1339 DC 01/31 IV 1602 Metoprolol Succinate 50 MG DAILY 01/31 1000 AC PO Omeprazole 40 MG DAILY AC 01/31 0700 AC PO Sodium Chloride 250 ML BOLUS ONE 01/30 2330 DC 01/30 IV 01/31 0029 2329 Vancomycin HCl 1,000 MG DAILY 01/30 2300 AC 01/31 Dextrose/Water 250 ML IV 0751 Review of Systems Review of Systems: No rash. No tremor. No hemoptysis. No hematemesis. All other systems were reviewed, and were noted to be negative. Past History Travel History Traveled to [place] past 21 day No Medical History Blood Transfusion Hx: No Neurological: NONE EENT: NONE Cardiovascular: hypertension, hyperlipidemia, NSTEMI (11/05/17 f/b drugeluting stent), CARDIAC STENT Respiratory: NONE Gastrointestinal: GI BLEED- refused w/u for Fe def anemia Hepatic: cholelithiasis Renal: EVELIN- resolved Musculoskeletal: NONE Psychiatric: NONE Endocrine: NONE Blood Disorders: anemia Cancer(s): NONE GANG SUPERVISOR/Reproductive: 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 FH: diabetes mellitus FATHER, , Age 30-40; Cause: Unknown cause of morbidity or mortality. Psychosocial History Where Do You Live? Home Who Do You Live With? self Services at Home: None Primary Language: Arabic Smoking Status: Former Smoker ETOH Use: denies use Illicit Drug Use: denies illicit drug use Living Will? yes Power of Cherry Picker Operator/HCP? yes Name of POA/HCP: dtr- Delia Dillon; son- Edu Merritt Functional Ability ADLs Independent: dressing, eating, toileting, bathing. Ambulation: independent IADLs Independent: shopping, housework, finances, food prep, telephone, transportation , medication admin. ECHO Results (as available) EF% 35 Exam & Diagnostic Data Vital Signs and I&O Vital Signs Date Time Temp Pulse Resp B/P B/P Pulse O2 O2 Flow FiO2 Mean Ox Delivery Rate 01/31 2010 99 BIPAP 30% 02/01 2008 98.6 96 24 138/50 99 BIPAP 30% 01/31 1953 94 100 01/31 1720 68 97 01/31 1540 BIPAP 30% 01/31 1525 98.8 88 20 110/52 96 BIPAP 30% 01/31 1400 97.9 87 20 114/60 94 01/31 1400 79 98 01/31 1109 88 94 01/31 0845 85 92 01/31 0758 BIPAP 30% 01/31 0708 88 94 01/31 0655 98.2 85 20 112/50 95 Nasal Cannula 01/31 0300 118/50 01/31 0130 130/64 01/30 2320 98.2 93 20 100/52 98 Nasal 2.0L Cannula 01/30 2246 Nasal 2.0L Cannula 01/30 2208 97.1 97 20 136/63 99 Nasal 2.0L Cannula Intake & Output 01/31 1600 01/31 0800 01/31 0000 01/30 1600 01/30 0800 01/30 0000 Intake Total 300 500 Output Total Balance 300 500 Intake, IV 300 500 Intake, Oral 0 Patient 173 lb 173 lb Weight Weight Bed scale Measurement Method Physical Exam: Gen: The patient is in no acute distress HEENT: Normal nose, ears, and oropharynx. Pupils equal bilaterally. Conjunctiva normal. Neck: Supple with no JVD, no masses, and no thyromegaly Lungs: Clear to auscultation with normal respiratory effort Heart: RRR, S1, S2, no murmurs. No peripheral edema, 2+ pulses in the lower extremities bilaterally Abdomen: Soft, nontender, no masses. No hepatomegaly. No splenomegaly Extremities: No clubbing or cyanosis. Normal muscle strength in the upper and lower extremities Skin: Normal skin turgor with no skin ulcers or lesions noted. Neuro: Cranial nerves intact. Sensation intact Psych: Alert and oriented x 3 with appropriate affect Labs/Edilberto Results: Laboratory Tests 01/31 01/31 1740 1511 Blood Gas pH (7.35 - 7.45 PH) 7.20 *L pCO2 (35 - 45 TORR) 87 *H pO2 (80 - 100 TORR) 123 H HCO3 (21 - 28 MEQ/L) 33.9 H ABG O2 Sat (Measured) (>96.0 %) 98.0 Carboxyhemoglobin (1.5 - 5.0 %) 0.7 L O2 Concentration % 4L O2 Delivery Method NC Chemistry Phosphorus (2.5 - 4.5 mg/dL) 5.5 H Magnesium (1.6 - 2.3 mg/dL) 1.8 Hematology CBC w Diff MAN DIFF ORDERED WBC (4.8 - 10.8 /CUMM) 29.6 H RBC (4.70 - 6.10 /CUMM) 3.33 L Hgb (14.0 - 18.0 G/DL) 9.6 L Hct (42 - 52 %) 30.1 L MCV (80.0 - 94.0 FL) 90.5 MCH (27.0 - 31.0 PG) 28.8 MCHC (33.0 - 37.0 G/DL) 31.9 L RDW (11.5 - 14.5 %) 17.7 H Plt Count (130 - 400 /CUMM) 225 MPV (7.4 - 10.4 FL) 7.8 Gran % (42.2 - 75.2 %) 86.1 H Lymphocytes % (20.5 - 51.1 %) 4.3 L Monocytes % (1.7 - 9.3 %) 9.1 Eosinophils % (0 - 5 %) 0.4 Basophils % (0.0 - 2.0 %) 0.1 Absolute Granulocytes (1.4 - 6.5 /CUMM) 25.5 H Segmented Neutrophils (42.2 - 75.2 %) 57 Band Neutrophils (0.0 - 5.0 %) 6 H Absolute Lymphocytes (1.2 - 3.4 /CUMM) 1.3 Lymphocytes (20.5 - 51.1 %) 5 L Monocytes (1.7 - 9.3 %) 16 H Absolute Monocytes (0.10 - 0.60 /CUMM) 2.7 H Absolute Eosinophils (0.0 - 0.7 /CUMM) 0.1 Absolute Basophils (0.0 - 0.2 /CUMM) 0 Metamyelocytes (0.0 - 1.0 %) 4 H Myelocytes (0 - 0 %) 12 H Nucleated RBCs (0.0 - 0.0 /100WBC) 5 H Platelet Estimate (ADEQUATE) VERIFIED BY SMEAR Polychromasia 1+ Basophilic Stippling SLIGHT Anisocytosis 1+ Miscellaneous Phlebotomy Draw Site RIGHT RADIAL Other Body Source Fld Total RBCs Counted (%) 100 01/31 01/31 01/31 1500 1408 1040 Blood Gas pH (7.35 - 7.45 PH) 7.33 L 7.27 *L pCO2 (35 - 45 TORR) 67 *H 77 *H pO2 (80 - 100 TORR) 99 78 L HCO3 (21 - 28 MEQ/L) 34 H 35 H ABG O2 Sat (Measured) (>96.0 %) 97.0 94.0 L P-50 (Temp Corrected) N N Carboxyhemoglobin (1.5 - 5.0 %) 0.7 L 0.9 L O2 Concentration % 30% 30% Respiration Rate (BPM) 22 22 O2 Delivery Method BIPAP BIPAP Vent Mode ST ST Expiratory Pressure (CM H2O P) 6 4 Inspiratory Pressure (CM H2O P) 18 18 Miscellaneous Phlebotomy Draw Site LEFT RADIAL LEFT RADIAL Toxicology Urine Opiates Screen (>2000 NG/ML) < 100 Methadone Screen (>300 NG/ML) < 40 Barbiturate Screen (>200 NG/ML) < 60 Ur Phencyclidine Scrn (>25 NG/ML) < 6.00 Amphetamines Screen (>1000 NG/ML) < 100 U Benzodiazepines Scrn (>200 NG/ML) < 85 Urine Cocaine Screen (>300 NG/ML) < 50 Urine Cannabis Screen (>50 NG/ML) < 5.00 03/03 01/31 01/31 01/30 01/30 0645 0515 0515 7534 7380 Blood Gas pH (7.35 - 7.45 PH) 7.16 *L pCO2 (35 - 45 TORR) 86 *H pO2 (80 - 100 TORR) 71 L HCO3 (21 - 28 MEQ/L) 30 H ABG O2 Sat (Measured) (>96.0 %) 92.0 L P-50 (Temp Corrected) N Carboxyhemoglobin (1.5 - 5.0 %) 1.0 L O2 Concentration % 2L O2 Delivery Method N/C Chemistry Sodium (137 - 145 mmol/L) 136 L Potassium (3.5 - 5.1 mmol/L) 5.1 Chloride (98 - 107 mmol/L) 93 L Carbon Dioxide (22 - 30 mmol/L) 39 H Anion Gap (5 - 16) 4 L BUN (9 - 20 mg/dL) 25 H Creatinine (0.7 - 1.2 mg/dL) 1.1 Estimated GFR (>60 ml/min) > 60 BUN/Creatinine Ratio (7 - 25 %) 22.7 Lactic Acid Cancelled Magnesium (1.6 - 2.3 mg/dL) 1.8 Troponin I (<0.11 ng/ml) 0.03 0.03 Miscellaneous Phlebotomy Draw Site LEFT RADIAL 01/30 Chemistry Lactic Acid (0.7 - 2.1 mmol/L) 0.8 Urines Urine Color (YEL,AMB,STR) YEL Urine Clarity (CLEAR) CLEAR Urine pH (5.0 - 8.0) 5.5 Ur Specific [place] (1.001 - 1.035) >= 1.030 Urine Protein (NEG,<30 MG/DL) 30 H Urine Ketones (NEG) TRACE H Urine Nitrite (NEG) NEG Urine Bilirubin (NEG) NEG@ICTO Urine Urobilinogen (0.1 - 1.0 EU/dl) 0.2 Ur Leukocyte Esterase (NEG) NEG Ur Microscopic SEDIMENT EXAMINED Urine RBC (0 - 5 /HPF) RARE Urine WBC (0 - 2 /HPF) 3-5 H Ur Epithelial Cells (NONE,FEW) OCCAS Hyaline Casts (0/LPF) MANY H Granular Casts (NONE /LPF) FEW H Urine Mucus (FEW,NONE) MANY H Urine Hemoglobin (NEG) NEG Urine Glucose (N MG/DL) NEG 01/30 01/30 1633 1615 Blood Gas pH (7.35 - 7.45 PH) 7.32 L pCO2 (35 - 45 TORR) 59 H pO2 (80 - 100 TORR) 82 HCO3 (21 - 28 MEQ/L) 30 H ABG O2 Sat (Measured) (>96.0 %) 93.0 L P-50 (Temp Corrected) N Carboxyhemoglobin (1.5 - 5.0 %) 1.3 L O2 Concentration % 4L Temperature (97.0 - 100.0 FARH) 99.2 O2 Delivery Method NC Chemistry Sodium (137 - 145 mmol/L) 135 L Potassium (3.5 - 5.1 mmol/L) 4.6 Chloride (98 - 107 mmol/L) 95 L Carbon Dioxide (22 - 30 mmol/L) 35 H Anion Gap (5 - 16) 5 BUN (9 - 20 mg/dL) 21 H Creatinine (0.7 - 1.2 mg/dL) 0.9 Estimated GFR (>60 ml/min) > 60 BUN/Creatinine Ratio (7 - 25 %) 23.3 Glucose (65 - 99 mg/dL) 124 H Lactic Acid (0.7 - 2.1 mmol/L) 1.0 Calcium (8.4 - 10.2 mg/dL) 7.9 L Total Bilirubin (0.2 - 1.3 mg/dL) 0.4 AST (17 - 59 U/L) 40 ALT (21 - 72 U/L) 30 Alkaline Phosphatase (< 127 U/L) 118 Troponin I (<0.11 ng/ml) 0.04 Dsy-P-Ixgkmrcthox Pept (<125 pg/mL) 2380 H Total Protein (6.3 - 8.2 g/dL) 4.6 L Albumin (3.5 - 5.0 g/dL) 2.5 L Globulin (1.9 - 4.2 gm/dL) 2.1 Albumin/Globulin Ratio (1.1 - 2.2 %) 1.2 Hematology CBC w Diff MAN DIFF ORDERED WBC (4.8 - 10.8 /CUMM) 24.2 H RBC (4.70 - 6.10 /CUMM) 3.37 L Hgb (14.0 - 18.0 G/DL) 9.4 L Hct (42 - 52 %) 29.9 L MCV (80.0 - 94.0 FL) 88.9 MCH (27.0 - 31.0 PG) 27.9 MCHC (33.0 - 37.0 G/DL) 31.4 L RDW (11.5 - 14.5 %) 17.2 H Plt Count (130 - 400 /CUMM) 231 MPV (7.4 - 10.4 FL) 7.7 Gran % (42.2 - 75.2 %) 85.2 H Lymphocytes % (20.5 - 51.1 %) 6.5 L Monocytes % (1.7 - 9.3 %) 6.9 Eosinophils % (0 - 5 %) 0.9 Basophils % (0.0 - 2.0 %) 0.5 Absolute Granulocytes (1.4 - 6.5 /CUMM) 20.6 H Segmented Neutrophils (42.2 - 75.2 %) 43 Band Neutrophils (0.0 - 5.0 %) 14 H Absolute Lymphocytes (1.2 - 3.4 /CUMM) 1.6 Lymphocytes (20.5 - 51.1 %) 10 L Monocytes (1.7 - 9.3 %) 7 Absolute Monocytes (0.10 - 0.60 /CUMM) 1.7 H Eosinophils (0 - 5.0 %) 1 Absolute Eosinophils (0.0 - 0.7 /CUMM) 0.2 Absolute Basophils (0.0 - 0.2 /CUMM) 0.1 Metamyelocytes (0.0 - 1.0 %) 12 H Myelocytes (0 - 0 %) 13 H Nucleated RBCs (0.0 - 0.0 /100WBC) 2 H Platelet Estimate (ADEQUATE) ADEQUATE Polychromasia 2+ Basophilic Stippling 2+ Anisocytosis 1+ Miscellaneous Phlebotomy Draw Site LEFT RADIAL Diagnostic Data EKG Results EKG tracing is independently reviewed, and reveals normal sinus rhythm at 91, poor R-wave progression, nonspecific T-wave normality CXR Results New hazy patchy left midlung opacification. Please correlate for any clinical symptoms of pneumonia. Other Results CTA chest 01/30/18: No CT evidence for pulmonary embolism. Dependent bibasilar airspace disease. Cholelithiasis without evidence of cholecystitis. Echocardiogram 11/05/17: Normal size left ventricle. Mild concentric left ventricular hypertrophy. Segmental wall motion abnormalities as described above. Overall left ventricular systolic function appeared moderately hypokinetic with an estimated ejection fraction of 35%. Cannot exclude apical thrombus. Abnormal relaxation filling pattern of the left ventricle for age (stage 1 diastolic dysfunction). Normal right ventricular size and function. Normal right atrial size. Mild left atrial dilatation. Mild mitral regurgitation. Mild tricuspid regurgitation. Moderate pulmonary hypertension. Mild pulmonic regurgitation. Small pericardial effusion. Dilated inferior vena cava. Assessment/Plan Assessment/Plan 82-year-old male with history of coronary artery disease, hypertension, diastolic heart failure, gastric cancer and chemotherapy admitted for acute respiratory failure. The respiratory failure appears to be secondary to COPD exacerbation with possible pneumonia. He is noted to have ventricular ectopy. The patient has history of chronic systolic heart failure, however there is no evidence of acute heart failure exacerbation. Troponin level is negative. ProBNP is below his baseline Recommendations: IV antibiotics and steroids as per pulmonary Continue usual cardiac medication Monitor on telemetry for further arrhythmias Check basic metabolic profile in the Consult Acknowledgment - Thank you for your consult request.
[2018-02-01 05:52] LABS: ABSOLUTE BASOPHIL COUNT 0 /CUMM (0.0-0.2); ABSOLUTE EOSINOPHIL COUNT 0 /CUMM (0.0-0.7); ABSOLUTE GRANULOCYTE CT 23.3 /CUMM (1.4-6.5); ABSOLUTE LYMPH COUNT 0.6 /CUMM (1.2-3.4); ABSOLUTE MONOCYTE COUNT 0.5 /CUMM (0.10-0.60); BASOPHIL % 0 % (0.0-2.0); EOSINOPHIL % 0.1 % (0-5); GRANULOCYTE % 95.4 % (42.2-75.2); MEAN CORPUSCULAR HGB 28.6 PG (27.0-31.0); MEAN CORPUSCULAR HGB CONC 31.9 G/DL (33.0-37.0); MEAN CORPUSCULAR VOLUME 89.5 FL (80.0-94.0); PLATELET COUNT 195 /CUMM (130-400); RBC DISTRIBUTION WIDTH 17.2 % (11.5-14.5); RED BLOOD CELL CT 3.13 /CUMM (4.70-6.10); WHITE BLOOD CELL COUNT 24.4 /CUMM (4.8-10.8)
--- NOTE | 2018-02-01 10:27 | PN- Resident CRCU ---
Rex Ruiz 02/01/18 1026: Subjective HPI/CRCU Issues: Reports overall improvement. Now on nasal cannula, did require BiPAP for acute hypoxemic hypercarbic respiratory failure. Reports concern secondary to swelling in his hands bilaterally. States he wants his Lasix dose. Complains of some cough and minimal phlegm production. Fevers or chills overnight. Objective Vital Signs & I&O Last 8 Hrs of Vitals and I&O: Intake & Output 02/01 1600 Intake Total 360 Output Total 200 Balance 160 Intake, IV 260 Intake, Oral 100 Output, Urine 200 Exam General Appearance: well developed/nourished, no apparent distress Respiratory: normal breath sounds, crackles (Bilaterally) Cardiovascular: regular rate/rhythm, edema Gastrointestinal: normal bowel sounds, soft Extremities: normal inspection Current Medications: Current Medications Sig/Lacey Start time Last Medication Dose Route Stop Time Status Admin Albuterol Sulfate 3 ML TID 01/31 1600 AC 02/01 INH 0805 Aspirin Buffered 81 MG DAILY 01/31 1000 AC 02/01 PO 0853 Atorvastatin Calcium 80 MG 1700 01/31 1700 AC PO Ceftazidime 1,000 MG IQ8 01/31 0000 AC / IV 0808 Clopidogrel Bisulfate 75 MG DAILY 01/31 1000 AC / PO 0853 Ferrous Sulfate 325 MG DAILY 01/31 1000 AC 02/01 PO 0853 Furosemide 20 MG DAILY 02/01 1034 AC 02/01 PO 1040 Ipratropium [place] 2.5 ML TID 01/31 1600 AC 02/01 INH 0805 Magnesium Sulfate 1 GM ONCE ONE 02/01 0015 DC 02/01 Dextrose/Water 100 ML IV 02/01 0414 0040 Magnesium Sulfate 1 GM ONCE ONE 01/31 1915 DC 01/31 Dextrose/Water 100 ML IV 01/31 2314 2018 Melatonin 6 MG AT BEDTIME 01/31 2200 AC PO Methylprednisolone 40 MG Q8 01/31 2200 AC / IV 0611 Methylprednisolone 40 MG Q12 01/31 1339 DC 01/31 IV 1602 Metoprolol Succinate 50 MG DAILY 01/31 1000 AC / PO 0853 Omeprazole 40 MG DAILY AC 01/31 0700 AC PO Vancomycin HCl 1,000 MG DAILY 01/30 2300 AC 02/01 Dextrose/Water 250 ML IV 0808 Impression/Plan Impression/Problem List Impression: 82-year-old gentleman with history of coronary artery disease, recent and NSTEMI requiring stent placement, hypertension, hyperlipidemia on chemotherapy for gastric cancer, was recently brought in because of concerns for hypoxemia, admitted to telemetry and found to have worsening breathing, ABGs revealing severe hypercarbia prompting transfer to intensive care unit. 1. Acute hypoxemic hypercarbic respiratory failure. Will check ABG this morning. Stable on nasal cannula. We'll continue nocturnal BiPAP. We'll continue empiric treatment with vancomycin and Ceftaz in light of his recent hospitalizations. Improving white count, continue to monitor. Continue Solu-Medrol, entertaining the possibility of COPD exacerbation. 2. Systolic heart failure, last known EF 35% in addition to diastolic failure. Lasix was held on admission. On exam, patient has crackles as well as peripheral edema. In the light of rising BUN, one could argue that this patient is prerenal(and due to dehydration). But his status is likely secondary to decreased renal perfusion from lower cardiac output, and not necessarily dehydration. His high BUN/creatinine ratio could also be a result of his FLOT (docetaxel, oxaliplatin, fluorouracil/leucovorin) chemotherapy for GI cancer. [place] based chemotherapy (oxaliplatin in this case) can give high BUN/creatinine ratios. We can safely resume Lasix at home dose, continuing close monitoring of BUN. Full code. DVT prophylaxis-Alps. Heart healthy diet. Problem List: 1. Acute respiratory failure with hypoxia and hypercarbia Pain Ratin Tomorrow's Labs & Rationales: Acute infection Plan DVT/Prophylaxis: mechanical Dell Adams MD 02/01/18 1031: Attending MD Review Statement Attending Sign Off Attending Cosign Statement: I have: examined this patient, reviewed [employer] EMR data, personally reviewd images, discussd w/resident/PA/ROLLER SKATE ASSEMBLER, discussed mgmt plan w/alejandra, discussed mgmt plan w/CM, discussed mgmt plan w/pt, agreed w/resident/PA/ROLLER SKATE ASSEMBLER, amended to note. Other Findings: Impressoin Consultation for dyspnea/hypercarbic respiratory failure. Patient is an 82 year old man. Hx significant for gastric cancer underoing chemotherapy. HTN, diastolic chf, hx of osteomyelitis. Hx of ACS with pci. Presented secondary to desaturation in the 70's for hypoxemic respiratory failure. Also noted to have hypercarbic respiratory failure. He has had a hx of presumed COPD however no therapy recently or workup per family, also has tried bipap in the past due to hypercarbia. Last chemotherapy last week, sees Dr. Jaramillo at [place]. Patient feels much better after initiation of bipap and improved ABG, reviewed in chart. - now - bipap settings changed to 18/. Imaging suggestive of bibasilar atelectasis. WBC 24. Recent diarrhea suggested workup at a recent ER visit (which required fluids) at [place], at that time pt declined c.diff sampling. Plan -cont abx, f/u ID consultation -solumedrol 40mg iv q12h - likely underlying COPD with exacerbation -cont bipap -diuresis -trc/nebs -c.diff and sputum cx -recommend ID consultation -cardiology was consulted given venricular ectopy DVT prophylaxis at all times TTS 35 min
--- NOTE | 2018-02-01 13:15 | PN- Infect Dx ---
Subjective Subjective: No fever; feeling better; decreased SOB. Jacobsen patent. Review of Systems Comments: 12 points reviewed as noted, otherwise negative. Objective Last 24 Hrs of Vital Signs/I&O Vital Signs Date Time Temp Pulse Resp B/P B/P Pulse O2 O2 Flow FiO2 Mean Ox Delivery Rate 02/01 1302 Nasal 2.0L Cannula 02/01 0853 83 105/47 02/01 0824 94 Nasal 2.0L Cannula 02/01 0806 95 Nasal 2.0L Cannula 02/01 0609 79 99 02/01 0400 99 BIPAP 30% 02/01 0307 77 99 02/01 0009 78 99 02/01 0000 97 BIPAP 30% 01/31 2247 77 93 01/31 2010 99 BIPAP 30% 02/01 2008 98.6 96 24 138/50 99 BIPAP 30% 01/31 1953 94 100 01/31 1720 68 97 01/31 1540 BIPAP 30% 01/31 1525 98.8 88 20 110/52 96 BIPAP 30% 01/31 1400 97.9 87 20 114/60 94 01/31 1400 79 98 Intake & Output 02/01 1600 02/01 0800 02/01 0000 Intake Total 20 130 Output Total 100 100 Balance -80 30 Intake, IV 20 130 Intake, Oral 0 Output, Urine 100 100 Patient 173 lb 165 lb Weight Weight Bed scale Bed scale Measurement Method Physical Exam Other Physical Findings: Generally - NAD Head and neck - NC/AT, sclera anicteric Neck No JVD Cardiovascular - S1, S2, no m/r/g Lungs - BS present, diminished bases Abdomen - Bowel sounds positive, soft, non-tender Extremities - no c/c Skin - warm and dry Neuro- awake and alert Results Last 24 Hours of Lab Results: Laboratory Tests 02/01 02/01 1130 UNK Blood Gas pH (7.35 - 7.45 PH) 7.38 pCO2 (35 - 45 TORR) 58 H pO2 (80 - 100 TORR) 79 L HCO3 (21 - 28 MEQ/L) 33 H ABG O2 Sat (Measured) (>96.0 %) 96.0 P-50 (Temp Corrected) N Carboxyhemoglobin (1.5 - 5.0 %) 0.6 L O2 Concentration % 2L Temperature (97.0 - 100.0 FARH) 98.6 O2 Delivery Method N Chemistry Sodium Cancelled Potassium Cancelled Chloride Cancelled Carbon Dioxide Cancelled Anion Gap Cancelled BUN Cancelled Creatinine Cancelled Glucose Cancelled Calcium Cancelled Phosphorus Cancelled Magnesium Cancelled Total Bilirubin Cancelled AST Cancelled ALT Cancelled Albumin Cancelled Miscellaneous Phlebotomy Draw Site LEFT RADIAL 02/01 02/01 01/31 [id number] Blood Gas pH (7.35 - 7.45 PH) 7.41 pCO2 (35 - 45 TORR) 53 H pO2 (80 - 100 TORR) 91 HCO3 (21 - 28 MEQ/L) 32 H ABG O2 Sat (Measured) (>96.0 %) 98.0 Carboxyhemoglobin (1.5 - 5.0 %) 0.3 L O2 Concentration % 30% Respiration Rate (BPM) 24 O2 Delivery Method BIPAP Vent Mode ST Expiratory Pressure (CM H2O P) 6 Inspiratory Pressure (CM H2O P) 20 Chemistry Sodium (137 - 145 mmol/L) 133 L 134 L Potassium (3.5 - 5.1 mmol/L) 5.1 5.0 Chloride (98 - 107 mmol/L) 92 L 92 L Carbon Dioxide (22 - 30 mmol/L) 36 H 37 H Anion Gap (5 - 16) 5 5 BUN (9 - 20 mg/dL) 34 H 31 H Creatinine (0.7 - 1.2 mg/dL) 1.1 1.1 Estimated GFR (>60 ml/min) > 60 > 60 BUN/Creatinine Ratio (7 - 25 %) 30.9 H Glucose (65 - 99 mg/dL) 152 H Calcium (8.4 - 10.2 mg/dL) 7.8 L Phosphorus (2.5 - 4.5 mg/dL) 4.4 Magnesium (1.6 - 2.3 mg/dL) 2.2 Total Bilirubin (0.2 - 1.3 mg/dL) 0.5 AST (17 - 59 U/L) 46 ALT (21 - 72 U/L) 33 Albumin (3.5 - 5.0 g/dL) 2.4 L Hematology CBC w Diff MAN DIFF ORDERED WBC (4.8 - 10.8 /CUMM) 24.4 H RBC (4.70 - 6.10 /CUMM) 3.13 L Hgb (14.0 - 18.0 G/DL) 8.9 L Hct (42 - 52 %) 28.0 L MCV (80.0 - 94.0 FL) 89.5 MCH (27.0 - 31.0 PG) 28.6 MCHC (33.0 - 37.0 G/DL) 31.9 L RDW (11.5 - 14.5 %) 17.2 H Plt Count (130 - 400 /CUMM) 195 MPV (7.4 - 10.4 FL) 8.0 Gran % (42.2 - 75.2 %) 95.4 H Lymphocytes % (20.5 - 51.1 %) 2.3 L Monocytes % (1.7 - 9.3 %) 2.2 Eosinophils % (0 - 5 %) 0.1 Basophils % (0.0 - 2.0 %) 0 Absolute Granulocytes (1.4 - 6.5 /CUMM) 23.3 H Segmented Neutrophils (42.2 - 75.2 %) 52 Band Neutrophils (0.0 - 5.0 %) 17 H Absolute Lymphocytes (1.2 - 3.4 /CUMM) 0.6 L Lymphocytes (20.5 - 51.1 %) 5 L Monocytes (1.7 - 9.3 %) 6 Absolute Monocytes (0.10 - 0.60 /CUMM) 0.5 Absolute Eosinophils (0.0 - 0.7 /CUMM) 0 Absolute Basophils (0.0 - 0.2 /CUMM) 0 Metamyelocytes (0.0 - 1.0 %) 4 H Myelocytes (0 - 0 %) 14 H Promyelocytes (0.0 - 0.0 %) 2 H Nucleated RBCs (0.0 - 0.0 /100WBC) 2 H Platelet Estimate (ADEQUATE) ADEQUATE Polychromasia 1+ Basophilic Stippling SLIGHT Anisocytosis 1+ Miscellaneous Phlebotomy Draw Site LEFT RADIAL Other Body Source Fld Total RBCs Counted (%) 100 01/31 03 1740 1511 Blood Gas pH (7.35 - 7.45 PH) 7.20 *L pCO2 (35 - 45 TORR) 87 *H pO2 (80 - 100 TORR) 123 H HCO3 (21 - 28 MEQ/L) 33.9 H ABG O2 Sat (Measured) (>96.0 %) 98.0 Carboxyhemoglobin (1.5 - 5.0 %) 0.7 L O2 Concentration % 4L O2 Delivery Method NC Chemistry Phosphorus (2.5 - 4.5 mg/dL) 5.5 H Magnesium (1.6 - 2.3 mg/dL) 1.8 Hematology CBC w Diff MAN DIFF ORDERED WBC (4.8 - 10.8 /CUMM) 29.6 H RBC (4.70 - 6.10 /CUMM) 3.33 L Hgb (14.0 - 18.0 G/DL) 9.6 L Hct (42 - 52 %) 30.1 L MCV (80.0 - 94.0 FL) 90.5 MCH (27.0 - 31.0 PG) 28.8 MCHC (33.0 - 37.0 G/DL) 31.9 L RDW (11.5 - 14.5 %) 17.7 H Plt Count (130 - 400 /CUMM) 225 MPV (7.4 - 10.4 FL) 7.8 Gran % (42.2 - 75.2 %) 86.1 H Lymphocytes % (20.5 - 51.1 %) 4.3 L Monocytes % (1.7 - 9.3 %) 9.1 Eosinophils % (0 - 5 %) 0.4 Basophils % (0.0 - 2.0 %) 0.1 Absolute Granulocytes (1.4 - 6.5 /CUMM) 25.5 H Segmented Neutrophils (42.2 - 75.2 %) 57 Band Neutrophils (0.0 - 5.0 %) 6 H Absolute Lymphocytes (1.2 - 3.4 /CUMM) 1.3 Lymphocytes (20.5 - 51.1 %) 5 L Monocytes (1.7 - 9.3 %) 16 H Absolute Monocytes (0.10 - 0.60 /CUMM) 2.7 H Absolute Eosinophils (0.0 - 0.7 /CUMM) 0.1 Absolute Basophils (0.0 - 0.2 /CUMM) 0 Metamyelocytes (0.0 - 1.0 %) 4 H Myelocytes (0 - 0 %) 12 H Nucleated RBCs (0.0 - 0.0 /100WBC) 5 H Platelet Estimate (ADEQUATE) VERIFIED BY SMEAR Polychromasia 1+ Basophilic Stippling SLIGHT Anisocytosis 1+ Miscellaneous Phlebotomy Draw Site RIGHT RADIAL Other Body Source Fld Total RBCs Counted (%) 100 /03 01/31 1500 1408 Blood Gas pH (7.35 - 7.45 PH) 7.33 L pCO2 (35 - 45 TORR) 67 *H pO2 (80 - 100 TORR) 99 HCO3 (21 - 28 MEQ/L) 34 H ABG O2 Sat (Measured) (>96.0 %) 97.0 P-50 (Temp Corrected) N Carboxyhemoglobin (1.5 - 5.0 %) 0.7 L O2 Concentration % 30% Respiration Rate (BPM) 22 O2 Delivery Method BIPAP Vent Mode ST Expiratory Pressure (CM H2O P) 6 Inspiratory Pressure (CM H2O P) 18 Miscellaneous Phlebotomy Draw Site LEFT RADIAL Toxicology Urine Opiates Screen (>2000 NG/ML) < 100 Methadone Screen (>300 NG/ML) < 40 Barbiturate Screen (>200 NG/ML) < 60 Ur Phencyclidine Scrn (>25 NG/ML) < 6.00 Amphetamines Screen (>1000 NG/ML) < 100 U Benzodiazepines Scrn (>200 NG/ML) < 85 Urine Cocaine Screen (>300 NG/ML) < 50 Urine Cannabis Screen (>50 NG/ML) < 5.00 Last 24 Hours of Edilberto Results: SPEC #: [id number] NICHELLE: 01/31/18 STATUS: COLB RECD: - SUBM DR: Arabella Elias MD SOURCE: LOWER RESP ENTR: 01/31/[address]: Felipa Garza MD SPDESC: Miguelito Chaudhry MD ORDERED: LOWER RESPIRATO Procedure Result LOWER RESPIRATO PENDING RECEIPT Recent Imaging Studies: CTA 01/30 IMPRESSION: No CT evidence for pulmonary embolism. Dependent bibasilar airspace disease. Cholelithiasis without evidence of cholecystitis. DICTATED BY: Edu Stapleton MD DATE/TIME DICTATED:01/30/181829 CLINICAL RN LIAISON:MARIE DATE/TIME TRANSCRIBED:01/30/181829 Assessment/Plan ID Impression: 82-year-old male with past medical history of hypertension, hyperlipidemia, diastolic congestive heart failure, gastric cancer, lumbar osteomyelitis treated in 2016, ACS with recent PCI, and stomach cancer was sent to the hospital on 01/30 with hypoxemia. Hypercarbic resp failure; possible aspiration pneumonia in the setting of hypercarbia (on CXR from 01/31 posible infiltrate suggestive of pneumonia) Leukocytosis (? lung infection ? secondary to neupogen) H/o recent diarrhea; r/o C. difficile infection Suggestion: Suggestion: 1. Trend CBC, BMP. F/U CXR in am; if negative pneumonia consider observing off abx. 2. Aspiration precautions. Swallow eval. 3. Currently treated empirically w/ iv ceftazidime; no sputum cx available to guide abx therapy
--- NOTE | 2018-02-01 15:13 | PN- Cardiology ---
Subjective Subjective: The patient is off BiPAP now. Shortness of breath is improving. No chest pain. No palpitations. No nausea or vomiting Objective Vital Signs and I&Os Vital Signs Date Time Temp Pulse Resp B/P B/P Pulse O2 O2 Flow FiO2 Mean Ox Delivery Rate 02/01 1302 Nasal 2.0L Cannula 02/01 0853 83 105/47 02/01 0824 94 Nasal 2.0L Cannula 02/01 0806 95 Nasal 2.0L Cannula 02/01 0609 79 99 02/01 0400 99 BIPAP 30% 02/01 0307 77 99 02/01 0009 78 99 02/01 0000 97 BIPAP 30% 01/31 2247 77 93 01/31 2010 99 BIPAP 30% 02/01 2008 98.6 96 24 138/50 99 BIPAP 30% 01/31 1953 94 100 01/31 1720 68 97 01/31 1540 BIPAP 30% 01/31 1525 98.8 88 20 110/52 96 BIPAP 30% Intake & Output 02/01 1600 02/01 0800 02/01 0000 01/31 1600 01/31 0800 01/31 0000 Intake Total 360 20 130 300 500 Output Total 200 100 100 Balance 160 -80 30 300 500 Intake, IV 260 20 130 300 500 Intake, Oral 100 0 0 Output, Urine 200 100 100 Patient 173 lb 165 lb 173 lb 173 lb Weight Weight Bed scale Bed scale Bed scale Measurement Method Physical Exam: Gen: The patient is in no acute distress HEENT: Normal nose, ears, and oropharynx. Pupils equal bilaterally. Conjunctiva normal. Neck: Supple with no JVD, no masses, and no thyromegaly Lungs: Clear to auscultation with normal respiratory effort Heart: RRR, S1, S2, no murmurs. No peripheral edema, 2+ pulses in the lower extremities bilaterally Abdomen: Soft, nontender, no masses. No hepatomegaly. No splenomegaly Extremities: No clubbing or cyanosis. Normal muscle strength in the upper and lower extremities Skin: Normal skin turgor with no skin ulcers or lesions noted. Neuro: Cranial nerves intact. Sensation intact Current Medications: Current Medications Sig/Lacey Start time Last Medication Dose Route Stop Time Status Admin Albuterol Sulfate 3 ML TID 01/31 1600 AC 02/01 INH 1340 Aspirin Buffered 81 MG DAILY 01/31 1000 AC 02/01 PO 0853 Atorvastatin Calcium 80 MG 1700 01/31 1700 AC PO Ceftazidime 1,000 MG IQ8 01/31 0000 AC 02/01 IV 0808 Clopidogrel Bisulfate 75 MG DAILY 01/31 1000 AC 02/01 PO 0853 Ferrous Sulfate 325 MG DAILY 01/31 1000 AC 02/01 PO 0853 Furosemide 20 MG DAILY 02/01 1034 AC 02/01 PO 1040 Ipratropium [place] 2.5 ML TID 01/31 1600 AC 02/01 INH 1340 Magnesium Sulfate 1 GM ONCE ONE 02/01 0015 DC 02/01 Dextrose/Water 100 ML IV 02/01 0414 0040 Magnesium Sulfate 1 GM ONCE ONE 01/31 1915 DC 01/31 Dextrose/Water 100 ML IV 01/31 2314 2018 Melatonin 6 MG AT BEDTIME 01/31 2200 AC PO Methylprednisolone 40 MG Q12 02/01 2200 AC IV Methylprednisolone 40 MG Q8 01/31 2200 DC 02/01 IV 0611 Methylprednisolone 40 MG Q12 01/31 1339 DC 01/31 IV 1602 Metoprolol Succinate 50 MG DAILY 01/31 1000 AC 02/01 PO 0853 Omeprazole 40 MG DAILY AC 01/31 0700 AC PO Vancomycin HCl 1,000 MG DAILY 01/30 2300 AC 02/01 Dextrose/Water 250 ML IV 0808 Results Last 48 Hrs of Labs/Mics: Laboratory Tests 02/01/18 1130: pH 7.38, pCO2 58 H, pO2 79 L, HCO3 33 H, ABG O2 Sat (Measured) 96.0, P-50 ( Temp Corrected) N, Carboxyhemoglobin 0.6 L, O2 Concentration % 2L, Temperature 98.6, O2 Delivery Method N, Phlebotomy Draw Site LEFT RADIAL 02/01/18 1000: Sodium Cancelled, Potassium Cancelled, Chloride Cancelled, Carbon Dioxide Cancelled, Anion Gap Cancelled, BUN Cancelled, Creatinine Cancelled, Glucose Cancelled, Calcium Cancelled, Phosphorus Cancelled, Magnesium Cancelled, Total Bilirubin Cancelled, AST Cancelled, ALT Cancelled, Albumin Cancelled 02/01/18 0434: Anion Gap 5, Estimated GFR > 60, BUN/Creatinine Ratio 30.9 H, CBC w Diff MAN DIFF ORDERED, RBC 3.13 L, MCV 89.5, MCH 28.6, MCHC 31.9 L, RDW 17.2 H, MPV 8.0, Gran % 95.4 H, Lymphocytes % 2.3 L, Monocytes % 2.2, Eosinophils % 0.1, Basophils % 0, Absolute Granulocytes 23.3 H, Segmented Neutrophils 52, Band Neutrophils 17 H, Absolute Lymphocytes 0.6 L, Lymphocytes 5 L, Monocytes 6, Absolute Monocytes 0.5, Absolute Eosinophils 0, Absolute Basophils 0, Metamyelocytes 4 H, Myelocytes 14 H, Promyelocytes 2 H, Nucleated RBCs 2 H, Platelet Estimate ADEQUATE, Polychromasia 1+, Basophilic Stippling SLIGHT, Anisocytosis 1+, Fld Total RBCs Counted 100 02/01/18 0031: Anion Gap 5, Estimated GFR > 60, Glucose 152 H, Calcium 7.8 L, Phosphorus 4.4, Magnesium 2.2, Total Bilirubin 0.5, AST 46, ALT 33, Albumin 2.4 L 01/31/18 2140: pH 7.41, pCO2 53 H, pO2 91, HCO3 32 H, ABG O2 Sat (Measured) 98.0, Carboxyhemoglobin 0.3 L, O2 Concentration % 30%, Respiration Rate 24, O2 Delivery Method BIPAP, Vent Mode ST, Expiratory Pressure 6, Inspiratory Pressure 20, Phlebotomy Draw Site LEFT RADIAL 01/31/18 1740: pH 7.20 *L, pCO2 87 *H, pO2 123 H, HCO3 33.9 H, ABG O2 Sat (Measured) 98.0, Carboxyhemoglobin 0.7 L, O2 Concentration % 4L, O2 Delivery Method NC, Phlebotomy Draw Site RIGHT RADIAL 01/31/18 1511: Phosphorus 5.5 H, Magnesium 1.8, CBC w Diff MAN DIFF ORDERED, RBC 3.33 L, MCV 90.5, MCH 28.8, MCHC 31.9 L, RDW 17.7 H, MPV 7.8, Gran % 86.1 H, Lymphocytes % 4.3 L, Monocytes % 9.1, Eosinophils % 0.4, Basophils % 0.1, Absolute Granulocytes 25.5 H, Segmented Neutrophils 57, Band Neutrophils 6 H, Absolute Lymphocytes 1.3, Lymphocytes 5 L, Monocytes 16 H, Absolute Monocytes 2.7 H, Absolute Eosinophils 0.1, Absolute Basophils 0, Metamyelocytes 4 H, Myelocytes 12 H, Nucleated RBCs 5 H, Platelet Estimate VERIFIED BY SMEAR, Polychromasia 1 +, Basophilic Stippling SLIGHT, Anisocytosis 1+, Fld Total RBCs Counted 100 01/31/18 1500: Urine Opiates Screen < 100, Methadone Screen < 40, Barbiturate Screen < 60, Ur Phencyclidine Scrn < 6.00, Amphetamines Screen < 100, U Benzodiazepines Scrn < 85, Urine Cocaine Screen < 50, Urine Cannabis Screen < 5.00 01/31/18 1408: pH 7.33 L, pCO2 67 *H, pO2 99, HCO3 34 H, ABG O2 Sat (Measured) 97.0, P-50 ( Temp Corrected) N, Carboxyhemoglobin 0.7 L, O2 Concentration % 30%, Respiration Rate 22, O2 Delivery Method BIPAP, Vent Mode ST, Expiratory Pressure 6, Inspiratory Pressure 18, Phlebotomy Draw Site LEFT RADIAL 01/31/18 1040: pH 7.27 *L, pCO2 77 *H, pO2 78 L, HCO3 35 H, ABG O2 Sat (Measured) 94.0 L, P- 50 (Temp Corrected) N, Carboxyhemoglobin 0.9 L, O2 Concentration % 30%, Respiration Rate 22, O2 Delivery Method BIPAP, Vent Mode ST, Expiratory Pressure 4, Inspiratory Pressure 18, Phlebotomy Draw Site LEFT [facility] 01/31/18 0645: pH 7.16 *L, pCO2 86 *H, pO2 71 L, HCO3 30 H, ABG O2 Sat (Measured) 92.0 L, P- 50 (Temp Corrected) N, Carboxyhemoglobin 1.0 L, O2 Concentration % 2L, O2 Delivery Method N/C, Phlebotomy Draw Site LEFT [facility] 01/31/18 0515: Troponin I 0.03 01/31/18 0515: Anion Gap 4 L, Estimated GFR > 60, BUN/Creatinine Ratio 22.7, Magnesium 1.8 01/30/18 2252: Lactic Acid Cancelled 01/30/188: Troponin I 0.03 01/30/18 2218: Lactic Acid 0.8 01/30/181953: Urine Color YEL, Urine Clarity CLEAR, Urine pH 5.5, Ur Specific [place] >= 1.030 , Urine Protein 30 H, Urine Ketones TRACE H, Urine Nitrite NEG, Urine Bilirubin NEG@ICTO, Urine Urobilinogen 0.2, Ur Leukocyte Esterase NEG, Ur Microscopic SEDIMENT EXAMINED, Urine RBC RARE, Urine WBC 3-5 H, Ur Epithelial Cells OCCAS, Hyaline Casts MANY H, Granular Casts FEW H, Urine Mucus MANY H, Urine Hemoglobin NEG, Urine Glucose NEG 01/30/18 1633: Anion Gap 5, Estimated GFR > 60, BUN/Creatinine Ratio 23.3, Glucose 124 H, Lactic Acid 1.0, Calcium 7.9 L, Total Bilirubin 0.4, AST 40, ALT 30, Alkaline Phosphatase 118, Troponin I 0.04, Mfm-D-Yciukynenfa Pept 2380 H, Total Protein 4.6 L, Albumin 2.5 L, Globulin 2.1, Albumin/Globulin Ratio 1.2, CBC w Diff MAN DIFF ORDERED, RBC 3.37 L, MCV 88.9, MCH 27.9, MCHC 31.4 L, RDW 17.2 H, MPV 7.7, Gran % 85.2 H, Lymphocytes % 6.5 L, Monocytes % 6.9, Eosinophils % 0.9, Basophils % 0.5, Absolute Granulocytes 20.6 H, Segmented Neutrophils 43, Band Neutrophils 14 H, Absolute Lymphocytes 1.6, Lymphocytes 10 L, Monocytes 7, Absolute Monocytes 1.7 H, Eosinophils 1, Absolute Eosinophils 0.2, Absolute Basophils 0.1, Metamyelocytes 12 H, Myelocytes 13 H, Nucleated RBCs 2 H, Platelet Estimate ADEQUATE, Polychromasia 2+, Basophilic Stippling 2+, Anisocytosis 1+ 01/30/18 1615: pH 7.32 L, pCO2 59 H, pO2 82, HCO3 30 H, ABG O2 Sat (Measured) 93.0 L, P-50 (Temp Corrected) N, Carboxyhemoglobin 1.3 L, O2 Concentration % 4L, Temperature 99.2, O2 Delivery Method NC, Phlebotomy Draw Site LEFT RADIAL Microbiology 01/31 2030 URINE ROUT: Legionella Antigen - COMP 01/31 2030 URINE ROUT: Streptococcus pneumoniae Antigen (M - COMP Assessment/Plan Assessment/Plan Assessment: 1. CAD 2. Gastric cancer 3. Respiratory failure secondary to COPD exacerbation 4. Ventricular ectopy, improved Plan: * Continue current cardiac medications. * Antibiotics as per the medical service * Monitor for further arrhythmias Continue telemetry? Yes
[2018-02-01 16:00] VITALS: BP 100/40
[2018-02-01 22:19] VITALS: BP 112/70; BP 120/72
[2018-02-02 06:01] LABS: ABSOLUTE BASOPHIL COUNT 0 /CUMM (0.0-0.2); ABSOLUTE EOSINOPHIL COUNT 0 /CUMM (0.0-0.7); ABSOLUTE GRANULOCYTE CT 39.6 /CUMM (1.4-6.5); ABSOLUTE LYMPH COUNT 0.9 /CUMM (1.2-3.4); BASOPHIL % 0 % (0.0-2.0); EOSINOPHIL % 0 % (0-5); GRANULOCYTE % 95.3 % (42.2-75.2); HEMATOCRIT 25.2 % (42-52); MEAN CORPUSCULAR HGB 28.9 PG (27.0-31.0); MEAN CORPUSCULAR HGB CONC 32.5 G/DL (33.0-37.0); MEAN CORPUSCULAR VOLUME 88.8 FL (80.0-94.0); MEAN PLATELET VOLUME 7.9 FL (7.4-10.4); PLATELET COUNT 177 /CUMM (130-400); RBC DISTRIBUTION WIDTH 17.2 % (11.5-14.5); RED BLOOD CELL CT 2.84 /CUMM (4.70-6.10)
[2018-02-02 06:30] VITALS: BP 118/58
[2018-02-02 06:50] LABS: WHITE BLOOD CELL COUNT 41.5 /CUMM (4.8-10.8)
--- NOTE | 2018-02-02 08:05 | Cons- Oncology ---
General Information and HPI Consulting Request Date of Consult: 02/02/18 Requested By: Felipa Garza MD Reason for Consult: gastric cancer, leukocytosis Source of Information: patient, old records Exam Limitations: no limitations History of Present Illness: Mr. Merritt is an 82-year-old male with HTN, HLD, diastolic heart failure, NSTEMI s/p PCI with HARPREET, and stage III gastric cancer being treated by Dr. Reena Jaramillo with FLOT who presented to the hospital with dyspnea and hypoxia. He has been weak and had diarrhea over the last few days. He has been having some nausea without vomiting. He denies any fever or chills. He does note shortness of breath without chest pain. He denies any stomach pain. He denies any issue with swallowing. He was found to have oxygen saturation in the 70s by his visiting nurse. He was sent to the hospital at that time. On admission, he was evalauted with CTA of the chest which demonstrated no pulmonary embolism. He did have bibasilar atelectasis. He was noted to have leukocytosis. He was given furosemide but blood pressure decreased. He had good oxygen saturation on 2L NC. He feels well this morning. He has no particular complaints. He is on 2L NC. He is on Solu-Medrol 40 mg BID, ceftazidime, and vancomycin. He is currently being treated by Dr. Reena Jaramillo in [place] at [facility]. He is getting FLOT (docetaxel, 5-FU infusion, and oxaliplatin) with Neulasta. He received Neulasta on 01/24/2018. Allergies/Medications Allergies: Coded Allergies: No Known Allergies (12/06/16) Home Med List: Aspirin (Ecotrin*) 81 MG TABLET.DR 1 TAB PO DAILY HEART/BLOOD (Reported) Atorvastatin Calcium (Lipitor) 80 MG TABLET 1 TAB PO DAILY CHOLESTEROL ( Reported) Clopidogrel Bisulfate (Clopidogrel) 75 MG TABLET 1 TAB PO DAILY HEART HEALTH Diphenoxylate HCl/Atropine (Lomotil 2.5-0.025 MG Tablet) 2.5 MG-0.025 MG TABLET 1 TAB PO AD DIARRHEA (Reported) Ferrous Sulfate (Ferosul) 325 MG (65 MG IRON) TABLET 1 TAB PO TID SUPPLEMENT (Reported) Furosemide (Lasix) 20 MG TABLET 1 TAB PO AD DIURETIC (Reported) Ipratropium/Albuterol Sulfate (Iprat-Albut 0.5-3(2.5) MG/3 Ml) 0.5 MG-3 MG (2.5 MG BASE)/3 ML AMPUL.NEB 1 VIAL INH Q6H RESP. (WHILE AWAKE) (Reported) Lisinopril (Zestril) 2.5 MG TABLET 1 TAB PO QHS BP (Reported) Melatonin 3 MG TABLET 2 TAB PO QHS SUPPLEMENT (Reported) Metoprolol Succinate 50 MG TAB.ER.24H 1 TAB PO DAILY HEART/BP (Reported) Nutritional Supplement (Resource 2.0) (Unknown Strength) LIQUID 360 ML PO DAILY SUPPLEMENT (Reported) Oxycodone HCl 5 MG TABLET 1 TAB PO Q4H PRN PAIN (Reported) Pantoprazole Sodium (Protonix) 40 MG TABLET.DR 1 TAB PO BID GERD Sennosides/Docusate Sodium (Senna S Tablet) 8.6 MG-50 MG TABLET 2 TAB PO BID GI (Reported) Current Medications: Current Medications Sig/Lacey Start time Last Medication Dose Route Stop Time Status Admin Albuterol Sulfate 3 ML TID 01/31 1600 AC 02/01 INH 2022 Aspirin Buffered 81 MG DAILY 01/31 1000 AC / PO 0853 Atorvastatin Calcium 80 MG 1700 01/31 1700 AC / PO 1630 Ceftazidime 1,000 MG IQ8 01/31 0000 AC 02/01 IV 2341 Clopidogrel Bisulfate 75 MG DAILY 01/31 1000 AC / PO 0853 Ferrous Sulfate 325 MG DAILY 01/31 1000 AC / PO 0853 Furosemide 20 MG DAILY 02/01 1034 AC 02/01 PO 1040 Ipratropium [place] 2.5 ML TID 01/31 1600 AC 02/01 INH 2021 Melatonin 6 MG AT BEDTIME 01/31 2200 AC 03/04 PO 2211 Methylprednisolone 40 MG Q12 02/01 2200 AC 03/04 IV 2211 Methylprednisolone 40 MG Q8 01/31 2200 DC 03/04 IV 0611 Metoprolol Succinate 50 MG DAILY 01/31 1000 AC / PO 0853 Omeprazole 40 MG DAILY AC 01/31 0700 AC PO Vancomycin HCl 1,000 MG DAILY 01/30 2300 AC 03/04 Dextrose/Water 250 ML IV 0808 Review of Systems Review of Systems Constitutional: Reports: weakness. Denies: chills, fever. EENTM: Denies: blurred vision, double vision. Cardiovascular: Denies: chest pain, palpitations. Respiratory: Reports: short of breath. GI: Reports: diarrhea. Genitourinary: Denies: discharge, dysuria. Musculoskeletal: Denies: back pain. Skin: Denies: erythema. Neurological/Psychological: Denies: anxiety, confusion. Hematologic/Endocrine: Denies: bruising, bleeding. Immunologic/Allergic: Denies: lymphadenopathy. All Other Systems: Reviewed and Negative Past History Travel History Traveled to [place] past 21 day No Medical History Blood Transfusion Hx: No Neurological: NONE EENT: NONE Cardiovascular: hypertension, hyperlipidemia, NSTEMI (11/05/17 f/b drugeluting stent), CARDIAC STENT Respiratory: NONE Gastrointestinal: GI BLEED- refused w/u for Fe def anemia Hepatic: cholelithiasis Renal: EVELIN- resolved Musculoskeletal: NONE Psychiatric: NONE Endocrine: NONE Blood Disorders: anemia Cancer(s): stage III gastric cancer GLOBAL PROGRAM MANAGER/Reproductive: 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 FH: diabetes mellitus FATHER, , Age 30-40; Cause: Unknown cause of morbidity or mortality. Psychosocial History Where Do You Live? Home Who Do You Live With? self Services at Home: None Primary Language: Pashto Smoking Status: Former Smoker ETOH Use: denies use Illicit Drug Use: denies illicit drug use Living Will? yes Power of Shearer Helper/HCP? yes Name of POA/HCP: dtr- Delia Dillon; son- Edu Merritt Functional Ability ADLs Independent: dressing, eating, toileting, bathing. Ambulation: independent IADLs Independent: shopping, housework, finances, food prep, telephone, transportation , medication admin. ECHO Results (as available) EF% 35 Exam & Diagnostic Data Vital Signs and I&O Vital Signs Date Time Temp Pulse Resp B/P B/P Pulse O2 O2 Flow FiO2 Mean Ox Delivery Rate 02/02 630 98.6 69 24 118/58 97 02/02 0011 72 98 02/01 2314 96 Nasal 1.0L Cannula 02/01 2219 97.4 70 21 120/72 96 03/04 2219 97.8 60 18 112/70 97 02/01 2023 99 Nasal 2.0L Cannula 02/02 2000 99 Nasal 2.0L Cannula 02/02 1600 100 Nasal 2.0L Cannula 02/01 1600 97.2 88 26 100/40 100 Nasal 2.0L Cannula 02/01 1302 Nasal 2.0L Cannula 02/01 0853 83 105/47 02/01 0824 94 Nasal 2.0L Cannula 02/01 0806 95 Nasal 2.0L Cannula Intake & Output 02/02 0800 02/02 0000 02/01 1600 Intake Total 360 Output Total 325 200 Balance -325 160 Intake, IV 260 Intake, Oral 100 Output, Urine 325 200 Patient 80.938 kg Weight Physical Exam General Appearance: no apparent distress, alert, awake, comfortable, thin Head: atraumatic, normal appearance Eyes: Bilateral: EOMI. Respiratory: chest non-tender, no respiratory distress, quiet respiration, decreased breath sounds (lower lobes), crackles (lower lobes) Cardiovascular: regular rate/rhythm, edema Gastrointestinal: normal bowel sounds, soft, non-tender Extremities: pedal edema Neurologic/Psych: awake, alert, oriented x 3 Skin: warm/dry Lymphatic: no anterior cervical soledad Last 48 Hours of Lab Results: Laboratory Tests 02/02 02/01 0436 1130 Blood Gas pH (7.35 - 7.45 PH) 7.38 pCO2 (35 - 45 TORR) 58 H pO2 (80 - 100 TORR) 79 L HCO3 (21 - 28 MEQ/L) 33 H ABG O2 Sat (Measured) (>96.0 %) 96.0 P-50 (Temp Corrected) N Carboxyhemoglobin (1.5 - 5.0 %) 0.6 L O2 Concentration % 2L Temperature (97.0 - 100.0 FARH) 98.6 O2 Delivery Method N Chemistry Sodium (137 - 145 mmol/L) 131 L Potassium (3.5 - 5.1 mmol/L) 4.5 Chloride (98 - 107 mmol/L) 90 L Carbon Dioxide (22 - 30 mmol/L) 38 H Anion Gap (5 - 16) 3 L BUN (9 - 20 mg/dL) 28 H Creatinine (0.7 - 1.2 mg/dL) 1.0 Estimated GFR (>60 ml/min) > 60 Glucose (65 - 99 mg/dL) 153 H Calcium (8.4 - 10.2 mg/dL) 8.0 L Phosphorus (2.5 - 4.5 mg/dL) 3.0 Magnesium (1.6 - 2.3 mg/dL) 2.2 Total Bilirubin (0.2 - 1.3 mg/dL) 0.4 AST (17 - 59 U/L) 31 ALT (21 - 72 U/L) 25 Albumin (3.5 - 5.0 g/dL) 2.3 L Hematology CBC w Diff MAN DIFF ORDERED WBC (4.8 - 10.8 /CUMM) 41.5 *H RBC (4.70 - 6.10 /CUMM) 2.84 L Hgb (14.0 - 18.0 G/DL) 8.2 L Hct (42 - 52 %) 25.2 L MCV (80.0 - 94.0 FL) 88.8 MCH (27.0 - 31.0 PG) 28.9 MCHC (33.0 - 37.0 G/DL) 32.5 L RDW (11.5 - 14.5 %) 17.2 H Plt Count (130 - 400 /CUMM) 177 MPV (7.4 - 10.4 FL) 7.9 Gran % (42.2 - 75.2 %) 95.3 H Lymphocytes % (20.5 - 51.1 %) 2.2 L Monocytes % (1.7 - 9.3 %) 2.5 Eosinophils % (0 - 5 %) 0 Basophils % (0.0 - 2.0 %) 0 Absolute Granulocytes (1.4 - 6.5 /CUMM) 39.6 H Segmented Neutrophils (42.2 - 75.2 %) 60 Band Neutrophils (0.0 - 5.0 %) 20 H Absolute Lymphocytes (1.2 - 3.4 /CUMM) 0.9 L Lymphocytes (20.5 - 51.1 %) 8 L Monocytes (1.7 - 9.3 %) 3 Absolute Monocytes (0.10 - 0.60 /CUMM) 1.0 H Absolute Eosinophils (0.0 - 0.7 /CUMM) 0 Absolute Basophils (0.0 - 0.2 /CUMM) 0 Metamyelocytes (0.0 - 1.0 %) 7 H Myelocytes (0 - 0 %) 2 H Nucleated RBCs (0.0 - 0.0 /100WBC) 1 H Platelet Estimate (ADEQUATE) ADEQUATE Polychromasia 1+ Basophilic Stippling 1+ Anisocytosis 1+ Stomatocytes 1+ Miscellaneous Phlebotomy Draw Site LEFT RADIAL 02/01 02/01 02/01 UN 0434 0031 Chemistry Sodium (137 - 145 mmol/L) Cancelled 133 L 134 L Potassium (3.5 - 5.1 mmol/L) Cancelled 5.1 5.0 Chloride (98 - 107 mmol/L) Cancelled 92 L 92 L Carbon Dioxide (22 - 30 mmol/L) Cancelled 36 H 37 H Anion Gap (5 - 16) Cancelled 5 5 BUN (9 - 20 mg/dL) Cancelled 34 H 31 H Creatinine (0.7 - 1.2 mg/dL) Cancelled 1.1 1.1 Estimated GFR (>60 ml/min) > 60 > 60 BUN/Creatinine Ratio (7 - 25 %) 30.9 H Glucose (65 - 99 mg/dL) Cancelled 152 H Calcium (8.4 - 10.2 mg/dL) Cancelled 7.8 L Phosphorus (2.5 - 4.5 mg/dL) Cancelled 4.4 Magnesium (1.6 - 2.3 mg/dL) Cancelled 2.2 Total Bilirubin (0.2 - 1.3 mg/dL) Cancelled 0.5 AST (17 - 59 U/L) Cancelled 46 ALT (21 - 72 U/L) Cancelled 33 Albumin (3.5 - 5.0 g/dL) Cancelled 2.4 L Hematology CBC w Diff MAN DIFF ORDERED WBC (4.8 - 10.8 /CUMM) 24.4 H RBC (4.70 - 6.10 /CUMM) 3.13 L Hgb (14.0 - 18.0 G/DL) 8.9 L Hct (42 - 52 %) 28.0 L MCV (80.0 - 94.0 FL) 89.5 MCH (27.0 - 31.0 PG) 28.6 MCHC (33.0 - 37.0 G/DL) 31.9 L RDW (11.5 - 14.5 %) 17.2 H Plt Count (130 - 400 /CUMM) 195 MPV (7.4 - 10.4 FL) 8.0 Gran % (42.2 - 75.2 %) 95.4 H Lymphocytes % (20.5 - 51.1 %) 2.3 L Monocytes % (1.7 - 9.3 %) 2.2 Eosinophils % (0 - 5 %) 0.1 Basophils % (0.0 - 2.0 %) 0 Absolute Granulocytes (1.4 - 6.5 /CUMM) 23.3 H Segmented Neutrophils (42.2 - 75.2 %) 52 Band Neutrophils (0.0 - 5.0 %) 17 H Absolute Lymphocytes (1.2 - 3.4 /CUMM) 0.6 L Lymphocytes (20.5 - 51.1 %) 5 L Monocytes (1.7 - 9.3 %) 6 Absolute Monocytes (0.10 - 0.60 /CUMM) 0.5 Absolute Eosinophils (0.0 - 0.7 /CUMM) 0 Absolute Basophils (0.0 - 0.2 /CUMM) 0 Metamyelocytes (0.0 - 1.0 %) 4 H Myelocytes (0 - 0 %) 14 H Promyelocytes (0.0 - 0.0 %) 2 H Nucleated RBCs (0.0 - 0.0 /100WBC) 2 H Platelet Estimate (ADEQUATE) ADEQUATE Polychromasia 1+ Basophilic Stippling SLIGHT Anisocytosis 1+ Other Body Source Fld Total RBCs Counted (%) 100 01/31 01/31 2140 1740 Blood Gas pH (7.35 - 7.45 PH) 7.41 7.20 *L pCO2 (35 - 45 TORR) 53 H 87 *H pO2 (80 - 100 TORR) 91 123 H HCO3 (21 - 28 MEQ/L) 32 H 33.9 H ABG O2 Sat (Measured) (>96.0 %) 98.0 98.0 Carboxyhemoglobin (1.5 - 5.0 %) 0.3 L 0.7 L O2 Concentration % 30% 4L Respiration Rate (BPM) 24 O2 Delivery Method BIPAP NC Vent Mode ST Expiratory Pressure (CM H2O P) 6 Inspiratory Pressure (CM H2O P) 20 Miscellaneous Phlebotomy Draw Site LEFT RADIAL RIGHT RADIAL 01/31 01/31 1511 1500 Chemistry Phosphorus (2.5 - 4.5 mg/dL) 5.5 H Magnesium (1.6 - 2.3 mg/dL) 1.8 Hematology CBC w Diff MAN DIFF ORDERED WBC (4.8 - 10.8 /CUMM) 29.6 H RBC (4.70 - 6.10 /CUMM) 3.33 L Hgb (14.0 - 18.0 G/DL) 9.6 L Hct (42 - 52 %) 30.1 L MCV (80.0 - 94.0 FL) 90.5 MCH (27.0 - 31.0 PG) 28.8 MCHC (33.0 - 37.0 G/DL) 31.9 L RDW (11.5 - 14.5 %) 17.7 H Plt Count (130 - 400 /CUMM) 225 MPV (7.4 - 10.4 FL) 7.8 Gran % (42.2 - 75.2 %) 86.1 H Lymphocytes % (20.5 - 51.1 %) 4.3 L Monocytes % (1.7 - 9.3 %) 9.1 Eosinophils % (0 - 5 %) 0.4 Basophils % (0.0 - 2.0 %) 0.1 Absolute Granulocytes (1.4 - 6.5 /CUMM) 25.5 H Segmented Neutrophils (42.2 - 75.2 %) 57 Band Neutrophils (0.0 - 5.0 %) 6 H Absolute Lymphocytes (1.2 - 3.4 /CUMM) 1.3 Lymphocytes (20.5 - 51.1 %) 5 L Monocytes (1.7 - 9.3 %) 16 H Absolute Monocytes (0.10 - 0.60 /CUMM) 2.7 H Absolute Eosinophils (0.0 - 0.7 /CUMM) 0.1 Absolute Basophils (0.0 - 0.2 /CUMM) 0 Metamyelocytes (0.0 - 1.0 %) 4 H Myelocytes (0 - 0 %) 12 H Nucleated RBCs (0.0 - 0.0 /100WBC) 5 H Platelet Estimate (ADEQUATE) VERIFIED BY SMEAR Polychromasia 1+ Basophilic Stippling SLIGHT Anisocytosis 1+ Other Body Source Fld Total RBCs Counted (%) 100 Toxicology Urine Opiates Screen (>2000 NG/ML) < 100 Methadone Screen (>300 NG/ML) < 40 Barbiturate Screen (>200 NG/ML) < 60 Ur Phencyclidine Scrn (>25 NG/ML) < 6.00 Amphetamines Screen (>1000 NG/ML) < 100 U Benzodiazepines Scrn (>200 NG/ML) < 85 Urine Cocaine Screen (>300 NG/ML) < 50 Urine Cannabis Screen (>50 NG/ML) < 5.00 01/31 01/31 1408 1040 Blood Gas pH (7.35 - 7.45 PH) 7.33 L 7.27 *L pCO2 (35 - 45 TORR) 67 *H 77 *H pO2 (80 - 100 TORR) 99 78 L HCO3 (21 - 28 MEQ/L) 34 H 35 H ABG O2 Sat (Measured) (>96.0 %) 97.0 94.0 L P-50 (Temp Corrected) N N Carboxyhemoglobin (1.5 - 5.0 %) 0.7 L 0.9 L O2 Concentration % 30% 30% Respiration Rate (BPM) 22 22 O2 Delivery Method BIPAP BIPAP Vent Mode ST ST Expiratory Pressure (CM H2O P) 6 4 Inspiratory Pressure (CM H2O P) 18 18 Miscellaneous Phlebotomy Draw Site LEFT RADIAL LEFT RADIAL Imaging/Other Studies: Imaging reviewed: CTA chest 01/30/2018: No CT evidence for pulmonary embolism. Dependent bibasilar airspace disease. Cholelithiasis without evidence of cholecystitis. Head CT without contrast 01/31/2018: No acute intracranial pathology. CXR 01/31/218: New hazy patchy left midlung opacification. Assessment/Plan Assessment: Mr. Merritt is an 82-year-old male with HTN, HLD, diastolic heart failure, NSTEMI s/p PCI with HARPREET, and stage III gastric cancer being treated by Dr. Reena Jaramillo with FLOT who presented to the hospital with dyspnea and hypoxia. He was noted to be hypoxic on RA with oxygen saturation of around 70s. Imaging studies suggest pneumonia. He is currently being treated with antibiotics (vancomycin and ceftazidime). Infectious disease and pulmology have been consulted and are following patient. Blood culture was positive for GPC on one set. He is on Solu- Medrol. He is noted to have leukocytosis. This is likely multifactorial with Neulasta recently, Solu-Medrol, and infection. No additional intervention is needed at this time. Recommendations: Acute hypoxic respiratory failure secondary to pneumonia: -follow up pulmonology recommendations -antibiotics as per ID and primary Leukocytosis: -antibiotics as per ID and primary -check C. diff if have not checked -monitor CBC Stage III gastric cancer: -follow up with Dr. Reena Jaramillo after discharge Problem List: 1. Acute respiratory failure with hypoxia and hypercarbia 2. Leukocytosis 3. Anemia 4. Gastric cancer Other Findings/Comments: Please call [phone] with any questions or concerns. For more patient specific question, may call Dr. Reena Jaramillo's office during office hours. Consult Acknowledgment - Thank you for your consult request.
--- NOTE | 2018-02-02 08:55 | PN- Housestaff ---
Rex Ruiz 02/02/18 0838: Subjective Follow-up For: Acute hypoxemic hypercarbic respiratory failure Suspected pneumonia, treated for healthcare associated Complaints: no complaints Tele-Events Since Last Visit: Sinus rhythm with PACs/PVCs, rate 60-70 Subjective: Feels well overall. Was on BiPAP overnight. States having the good night sleep. Good appetite. No breathing difficulty. Mentating well. Intermittent cough. No fevers or chills overnight. No reported diarrhea. No nausea or vomiting. Review of Systems Constitutional: Reports: see HPI. Objective Last 24 Hrs of Vital Signs/I&O Vital Signs Date Time Temp Pulse Resp B/P B/P Pulse O2 O2 Flow FiO2 Mean Ox Delivery Rate 02/02 0630 98.6 69 24 118/58 97 02/02 0011 72 98 02/01 2314 96 Nasal 1.0L Cannula 02/01 2219 97.4 70 21 120/72 96 02/01 2219 97.8 60 18 112/70 97 02/01 2023 99 Nasal 2.0L Cannula 02/02 2000 99 Nasal 2.0L Cannula 02/01 1600 100 Nasal 2.0L Cannula 02/01 1600 97.2 88 26 100/40 100 Nasal 2.0L Cannula 02/01 1302 Nasal 2.0L Cannula 02/01 0853 83 105/47 Intake & Output 02/02 1600 02/02 0800 02/02 0000 Intake Total Output Total 325 Balance -325 Output, Urine 325 Patient 178 lb Weight Physical Exam General Appearance: Alert, Oriented X3, Cooperative HEENT: Atraumatic Cardiovascular: Regular Rate, Normal S1, Normal S2 Lungs: Clear to Auscultation, BIBASILAR CRACKLES. Abdomen: Normal Bowel Sounds, Soft Neurological: Normal Gait Extremities: No Clubbing, No Cyanosis, No Edema Current Medications: Current Medications Sig/Lacey Start time Last Medication Dose Route Stop Time Status Admin Albuterol Sulfate 3 ML TID 01/31 1600 AC 02/01 INH 202 Aspirin Buffered 81 MG DAILY 01/31 1000 AC 02/01 PO 0853 Atorvastatin Calcium 80 MG 1700 01/31 1700 AC 02/01 PO 1630 Ceftazidime 1,000 MG IQ8 01/31 0000 AC 02/01 IV 2341 Clopidogrel Bisulfate 75 MG DAILY 01/31 1000 AC 02/01 PO 0853 Ferrous Sulfate 325 MG DAILY 01/31 1000 AC 02/01 PO 0853 Furosemide 20 MG DAILY 02/01 1034 AC 02/01 PO 1040 Ipratropium [place] 2.5 ML TID 01/31 1600 AC 02/01 INH 202 Melatonin 6 MG AT BEDTIME 01/31 220 AC 02/01 PO 2211 Methylprednisolone 40 MG Q12 02/01 2200 AC 02/01 IV 2211 Methylprednisolone 40 MG Q8 01/31 2200 DC 02/01 IV 0611 Metoprolol Succinate 50 MG DAILY 01/31 1000 AC 02/01 PO 0853 Omeprazole 40 MG DAILY AC 01/31 0700 AC 02/02 PO 0752 Vancomycin HCl 1,000 MG DAILY 01/30 2300 AC 02/01 Dextrose/Water 250 ML IV 0808 Last 24 Hrs of Lab/Edilberto Results Last 24 Hrs of Labs/Mics: Laboratory Tests 02/02/18 0436: Anion Gap 3 L, Estimated GFR > 60, Glucose 153 H, Calcium 8.0 L, Phosphorus 3.0, Magnesium 2.2, Total Bilirubin 0.4, AST 31, ALT 25, Albumin 2.3 L, CBC w Diff MAN DIFF ORDERED, RBC 2.84 L, MCV 88.8, MCH 28.9, MCHC 32.5 L, RDW 17.2 H, MPV 7.9, Gran % 95.3 H, Lymphocytes % 2.2 L, Monocytes % 2.5, Eosinophils % 0, Basophils % 0, Absolute Granulocytes 39.6 H, Segmented Neutrophils 60, Band Neutrophils 20 H, Absolute Lymphocytes 0.9 L, Lymphocytes 8 L, Monocytes 3, Absolute Monocytes 1.0 H, Absolute Eosinophils 0, Absolute Basophils 0, Metamyelocytes 7 H, Myelocytes 2 H, Nucleated RBCs 1 H, Platelet Estimate ADEQUATE, Polychromasia 1+, Basophilic Stippling 1+, Anisocytosis 1+, Stomatocytes 1+ 02/01/18 1130: pH 7.38, pCO2 58 H, pO2 79 L, HCO3 33 H, ABG O2 Sat (Measured) 96.0, P-50 ( Temp Corrected) N, Carboxyhemoglobin 0.6 L, O2 Concentration % 2L, Temperature 98.6, O2 Delivery Method N, Phlebotomy Draw Site LEFT RADIAL 02/01/18 1000: Sodium Cancelled, Potassium Cancelled, Chloride Cancelled, Carbon Dioxide Cancelled, Anion Gap Cancelled, BUN Cancelled, Creatinine Cancelled, Glucose Cancelled, Calcium Cancelled, Phosphorus Cancelled, Magnesium Cancelled, Total Bilirubin Cancelled, AST Cancelled, ALT Cancelled, Albumin Cancelled Microbiology 02/02 08 STOOL: Clostridium difficile Toxin A & B - ORD Assessment/Plan Assessment: 82-year-old gentleman with history of coronary artery disease, recent and NSTEMI requiring stent placement, hypertension, hyperlipidemia on chemotherapy for gastric cancer, was recently brought in because of concerns for hypoxemia, admitted to telemetry and found to have worsening breathing, ABGs revealing severe hypercarbia prompting transfer to intensive care unit. 1. Acute hypoxemic hypercarbic respiratory failure. Stable ABG yesterday. Was on BiPAP overnight, good mentation. Will reassess need for nocturnal BiPAP. Resistant organism surveillance screen negative for MRSA. Will discontinue vancomycin, will empirically continue ceftazidime. White count continues to worsen, most likely result of peripheral neutrophil demargination with increase in steroid dose, suspected pneumonia and recent Neulasta usage. No fevers or chills. ? Transition to by mouth prednisone today, await pulmonary recommendations. 2. Systolic heart failure, last known EF 35% in addition to diastolic failure. Lasix was held on admission. On exam, patient has crackles as well as peripheral edema. status is likely secondary to decreased renal perfusion from lower cardiac output, and not necessarily dehydration. His high BUN/creatinine ratio could also be a result of his FLOT (docetaxel, oxaliplatin, fluorouracil/leucovorin) chemotherapy for GI cancer. [place] based chemotherapy (oxaliplatin in this case) can give high BUN/creatinine ratios. Lasix was resumed at home dose yesterday. BUN/creatinine have improved since. 3. Metabolic disturbances. Noted hyponatremia and hypochloremia, combination of loop diuretic use as well as bicarbonate retention (due to COPD and CO2 retention). Low albumin is likely contributing to the low anion gap.? Nephrology consultation. Full code. DVT prophylaxis-Alps. Heart healthy diet. Problem List: 1. Acute respiratory failure with hypoxia and hypercarbia Pain Ratin Pain Location: N/A Pain Goal: Remain pain free Pain Plan: PRN Tomorrow's Labs & Rationales: Leukocytosis Hyponatremia Reji Ricardo MD 02/02/18 1052: Attending MD Review Statement Attending Statement Attending MD Statement: examined this patient, discuss w/resident/PA/WOODWORKING MACHINIST, agreed w/resident/PA/WOODWORKING MACHINIST, reviewed EMR data (avail), discussed with nursing, discussed with case mgmt, amended to note Attending Assessment/Plan: Patient seen and examined. Resting comfortably and not in any acute distress. Transferred out of the ICU overnight after being managed for respiratory failure there. She was managed with BiPAP therapy. Clinically doing better, is being weaned down to 1 L of oxygen via nasal cannula. Patient reports feeling better. Denies shortness of breath or cough. Denies palpitations. He is afebrile. He is hemodynamically stable. On examination he is not in any respiratory distress. He has no jugular venous distention. He has adequate entry bilaterally with no added sounds today. Abdomen is soft and nontender. He has trace peripheral edema bilaterally. Laboratory data shows markedly elevation of his white cell count today. Hemoglobin level is stable.Renal function is stable however sodium level is decreasing. Recommendations: -Chest x-ray today shows clear evidence of pneumonia. Continue antibiotic therapy with ceftaz Unable to obtain any sputum cultures. Follow-up with the ID service. - echo shows to age 1 diastolic dysfunction. It shows normal ejection fraction. Recommend holding diuretics for now monitoring improvement of sodium level. - mobilize patient as tolerated. -Patient has had no more diarrhea. He is actually complaining of constipation today. -Overnight on telemetry he had some PACs and PVCs. He is in normal sinus rhythm. Please follow-up with the cardiology service. If there are no interventions recommended evaluate interventions for his ventricular ectopy recommend discontinuation of cardiac monitoring.
--- NOTE | 2018-02-02 09:43 | RADIOLOGY REPORT ---
EXAMINATION: XR PORTABLE CHEST CLINICAL INFORMATION: Pneumonia. COMPARISON: Chest radiograph dated 01/31/2018. TECHNIQUE: Portable frontal view of the chest was obtained. FINDINGS: The right PICC appears stable in position. The tip overlies the right atrium. The cardiomediastinal silhouette is somewhat difficult to assess secondary to patient rotation. There is a left lower lobe opacity consistent with pneumonia. There are patchy airspace opacities throughout the right mid and lower lung, likely representing pneumonia. No pneumothorax. No large pleural effusion. IMPRESSION: Left lower lobe and right mid and lower lung airspace opacities consistent with pneumonia.
--- NOTE | 2018-02-02 09:56 | ECHOCARDIOGRAM REPORT ---
BRENDA SAVAGE Age: 82 : 1935 Gender: M Exam Date: 02/01/2018 08:19 Exam Location: [facility] Ht (in): 71 Wt (lb): 174 BSA: 1.99 BP: 138 / 50 Ordering Physician: Carmen Garcia MD Referring Physician: Juan Miguel Bolaños MD Technologist: Iraida Calhoun [facility] Room Number: 103 Indications: HEART FAILURE Rhythm: Sinus Technical Quality: Fair FINDINGS Left Ventricle Normal size left ventricle. Normal left ventricular wall thickness. Hypokinetic distal septum. Normal left ventricular ejection fraction visually estimated at >55%. Abnormal relaxation filling pattern of the left ventricle for age (stage 1 diastolic dysfunction). Right Ventricle Mild right ventricular dilatation. Right Atrium Mild right atrial dilatation. Left Atrium Mild left atrial dilatation. Mitral Valve Mild mitral annular calcification. Mitral valve mildly thickened. No mitral regurgitation. Aortic Valve Trileaflet aortic valve. Diffuse mild thickening of the aortic valve cusps with mildly reduced excursion. Very mild aortic stenosis. No aortic regurgitation. Tricuspid Valve Structurally normal tricuspid valve. Trace tricuspid regurgitation. Mild pulmonary hypertension. Right ventricular systolic pressure estimated to be elevated at 41 mmHg. Pulmonic Valve Pulmonic valve not well visualized, grossly normal. Mild pulmonic regurgitation. Pericardium No pericardial effusion. Great Vessels Normal size aortic root. CONCLUSIONS Normal size left ventricle. Normal left ventricular wall thickness. Hypokinetic distal septum. Abnormal relaxation filling pattern of the left ventricle for age (stage 1 diastolic dysfunction). Mild right ventricular dilatation. Mild atrial dilatation. Very mild aortic stenosis. Trace tricuspid regurgitation. Mild pulmonic regurgitation. Juan Miguel Bolaños M.D. (Electronically Signed) Final Date: 02 February 2018 09:55 MEASUREMENTS (Male / Female) Normal Values 2D ECHO LV Diastolic Diameter PLAX 4.1 cm 4.2 - 5.9 / 3.9 - 5.3 cm LV Systolic Diameter PLAX 2.7 cm 2.1 - 4.0 cm LV Fractional Shortening PLAX 34.1 % 25 - 46 % LV Ejection Fraction 2D Teich 63.6 % IVS Diastolic Thickness 0.8 cm LVPW Diastolic Thickness 0.9 cm LV Relative Wall Thickness 0.4 RV Internal Dim ED PLAX 3.9 cm 1.9 - 3.8 cm LVOT Diameter 1.9 cm Aortic Root Diameter 3.2 cm LA Systolic Diameter LX 3.9 cm 3.0 - 4.0 / 2.7 - 3.8 cm LA Volume 57.0 cm 18 - 58 / 22 - 52 cm Ascending Aorta Diameter 3.2 cm DOPPLER AV Peak Velocity 201.0 cm/s AV Peak Gradient 16.2 mmHg AV Mean Velocity 139.0 cm/s AV Mean Gradient 9.0 mmHg AV Velocity Time Integral 44.3 cm LVOT Peak Velocity 128.0 cm/s LVOT Peak Gradient 6.6 mmHg LVOT Mean Velocity 84.1 cm/s LVOT Mean Gradient 3.0 mmHg LVOT Velocity Time Integral 27.1 cm LVOT Stroke Volume 76.8 cm AV Area Cont Eq vti 1.7 cm AV Area Cont Eq pk 1.8 cm MV Peak Velocity 124.0 cm/s MV Peak Gradient 6.2 mmHg MV Mean Velocity 71.3 cm/s MV Mean Gradient 2.0 mmHg Mitral E Point Velocity 80.5 cm/s Mitral A Point Velocity 110.0 cm/s Mitral E to A Ratio 0.7 MV PHT Velocity 96.4 cm/s MV Deceleration [place] 308.0 cm/s MV Pressure Half Time 93.9 ms MV Area PHT 2.3 cm MV Deceleration Time 224.0 ms TR Peak Velocity 300.0 cm/s TR Peak Gradient 36.0 mmHg Right Atrial Pressure 5.0 mmHg Pulmonary Artery Systolic Pressu 41.0 mmHg Right Ventricular Systolic Press 41.0 mmHg PV Peak Velocity 135.0 cm/s PV Peak Gradient 7.3 mmHg PV Mean Velocity 88.0 cm/s PV Mean Gradient 4.0 mmHg PV Velocity Time Integral 28.4 cm LV E' Lateral Velocity 10.6 cm/s Mitral E to LV E' Lateral Ratio 7.6 LV E' Septal Velocity 14.6 cm/s Mitral E to LV E' Septal Ratio 5.5
--- NOTE | 2018-02-02 11:42 | PN- Pulmonary ---
Subjective HPI/Critical Care Issues: pt seen and examined transferred out of icu tolerated bipap overnight Objective Current Medications: Current Medications Sig/Lacey Start time Last Medication Dose Route Stop Time Status Admin Albuterol Sulfate 3 ML TID 01/31 1600 AC 02/02 INH 0910 Aspirin Buffered 81 MG DAILY 01/31 1000 AC 03/05 PO 0936 Atorvastatin Calcium 80 MG 1700 01/31 1700 AC 03/04 PO 1630 Ceftazidime 1,000 MG IQ8 01/31 0000 AC 03 IV 0916 Clopidogrel Bisulfate 75 MG DAILY 01/31 1000 AC /05 PO 0936 Ferrous Sulfate 325 MG DAILY 01/31 1000 AC /05 PO 0936 Furosemide 20 MG DAILY 02/01 1034 AC / PO 0936 Ipratropium [place] 2.5 ML TID 01/31 1600 AC 02/02 INH 0910 Melatonin 6 MG AT BEDTIME 01/31 2200 AC / PO 2211 Methylprednisolone 40 MG Q12 02/01 2200 AC 02/02 IV 0916 Methylprednisolone 40 MG Q8 01/31 2200 DC 03/04 IV 0611 Metoprolol Succinate 50 MG DAILY 01/31 1000 AC 03/05 PO 0936 Omeprazole 40 MG DAILY AC 01/31 0700 AC 03/ PO 0752 Polyethylene Glycol 17 GM DAILY 02/02 1000 AC PO Senna/Docusate Sodium 1 TAB BID 02/02 1000 AC / PO 1122 Vancomycin HCl 1,000 MG DAILY 01/30 2300 DC /04 Dextrose/Water 250 ML IV 0808 Vital Signs & I&O Last 24 Hrs of Vitals and I&O: Vital Signs Date Time Temp Pulse Resp B/P B/P Pulse O2 O2 Flow FiO2 Mean Ox Delivery Rate 02/02 0936 69 118/58 03/ 0910 96 Nasal 1.0L Cannula 02/02 0630 98.6 69 24 118/58 97 / 0011 72 98 / 2314 96 Nasal 1.0L Cannula 02/01 2219 97.4 70 21 120/72 96 / 2219 97.8 60 18 112/70 97 / 202 99 Nasal 2.0L Cannula 02/02 2000 99 Nasal 2.0L Cannula 02/01 1600 100 Nasal 2.0L Cannula 02/01 1600 97.2 88 26 100/40 100 Nasal 2.0L Cannula 02/01 1302 Nasal 2.0L Cannula Intake & Output 02/02 1600 02/02 0800 02/02 0000 Intake Total Output Total 325 Balance -325 Output, Urine 325 Patient 178 lb Weight Exam Other Physical Findings: gen awake heent ncat cvs s1, s2 lungs bilateral crackles/rhonchi abd soft, bs+ ext without edema Results Last 24 Hrs of Lab Results: Laboratory Tests 02/02/18 0436: Anion Gap 3 L, Estimated GFR > 60, Glucose 153 H, Calcium 8.0 L, Phosphorus 3.0, Magnesium 2.2, Total Bilirubin 0.4, AST 31, ALT 25, Albumin 2.3 L, CBC w Diff MAN DIFF ORDERED, RBC 2.84 L, MCV 88.8, MCH 28.9, MCHC 32.5 L, RDW 17.2 H, MPV 7.9, Gran % 95.3 H, Lymphocytes % 2.2 L, Monocytes % 2.5, Eosinophils % 0, Basophils % 0, Absolute Granulocytes 39.6 H, Segmented Neutrophils 60, Band Neutrophils 20 H, Absolute Lymphocytes 0.9 L, Lymphocytes 8 L, Monocytes 3, Absolute Monocytes 1.0 H, Absolute Eosinophils 0, Absolute Basophils 0, Metamyelocytes 7 H, Myelocytes 2 H, Nucleated RBCs 1 H, Platelet Estimate ADEQUATE, Polychromasia 1+, Basophilic Stippling 1+, Anisocytosis 1+, Stomatocytes 1+ Impression/Plan Impression/Plan Impression/Plan: Impressoin 82 year old man. Hx significant for gastric cancer underoing chemotherapy. HTN, diastolic chf, hx of osteomyelitis. Hx of ACS with pci. * leukocytosis secondary to either neupogen use vs pneumonia Plan -cont abx, f/u ID recommendations -DC solumedrol, begin prednisone 60mg - likely underlying COPD with exacerbation as well -cont bipap overnight tonight then will trial without bipap -f/u cardiology recs -trc/nebs -f/u all cultures DVT prophylaxis at all times
[2018-02-02 14:38] VITALS: BP 138/60
--- NOTE | 2018-02-02 16:10 | PN- Infect Dx ---
Subjective Subjective: Afebrile on steroids. He notes a mild cough but has no shortness of breath or chest pain. He has had no diarrhea since admission. Objective Last 24 Hrs of Vital Signs/I&O Vital Signs Date Time Temp Pulse Resp B/P B/P Pulse O2 O2 Flow FiO2 Mean Ox Delivery Rate 02/02 1438 98.1 72 20 138/60 96 Nasal Cannula 02/02 0936 69 118/58 02/02 0910 96 Nasal 1.0L Cannula 02/02 0800 94 Nasal 1.0L Cannula 02/02 0630 98.6 69 24 118/58 97 02/02 0011 72 98 02/01 2314 96 Nasal 1.0L Cannula 02/01 2219 97.4 70 21 120/72 96 02/01 2219 97.8 60 18 112/70 97 02/01 2023 99 Nasal 2.0L Cannula 02/02 2000 99 Nasal 2.0L Cannula Intake & Output 02/02 1600 02/02 0800 02/02 0000 Intake Total 500 Output Total 325 Balance 500 -325 Intake, IV 50 Intake, Oral 450 Output, Urine 325 Patient 178 lb Weight Physical Exam Other Physical Findings: He appears comfortable in no acute distress Lungs decreased breath sounds at both bases Heart regular rhythm with no murmur Extremities 1+ edema both lower extremities; PICC in the right upper extremity with no inflammation at the site Results Last 24 Hours of Lab Results: Laboratory Tests 02/02 0436 Chemistry Sodium (137 - 145 mmol/L) 131 L Potassium (3.5 - 5.1 mmol/L) 4.5 Chloride (98 - 107 mmol/L) 90 L Carbon Dioxide (22 - 30 mmol/L) 38 H Anion Gap (5 - 16) 3 L BUN (9 - 20 mg/dL) 28 H Creatinine (0.7 - 1.2 mg/dL) 1.0 Estimated GFR (>60 ml/min) > 60 Glucose (65 - 99 mg/dL) 153 H Calcium (8.4 - 10.2 mg/dL) 8.0 L Phosphorus (2.5 - 4.5 mg/dL) 3.0 Magnesium (1.6 - 2.3 mg/dL) 2.2 Total Bilirubin (0.2 - 1.3 mg/dL) 0.4 AST (17 - 59 U/L) 31 ALT (21 - 72 U/L) 25 Albumin (3.5 - 5.0 g/dL) 2.3 L Hematology CBC w Diff MAN DIFF ORDERED WBC (4.8 - 10.8 /CUMM) 41.5 *H RBC (4.70 - 6.10 /CUMM) 2.84 L Hgb (14.0 - 18.0 G/DL) 8.2 L Hct (42 - 52 %) 25.2 L MCV (80.0 - 94.0 FL) 88.8 MCH (27.0 - 31.0 PG) 28.9 MCHC (33.0 - 37.0 G/DL) 32.5 L RDW (11.5 - 14.5 %) 17.2 H Plt Count (130 - 400 /CUMM) 177 MPV (7.4 - 10.4 FL) 7.9 Gran % (42.2 - 75.2 %) 95.3 H Lymphocytes % (20.5 - 51.1 %) 2.2 L Monocytes % (1.7 - 9.3 %) 2.5 Eosinophils % (0 - 5 %) 0 Basophils % (0.0 - 2.0 %) 0 Absolute Granulocytes (1.4 - 6.5 /CUMM) 39.6 H Segmented Neutrophils (42.2 - 75.2 %) 60 Band Neutrophils (0.0 - 5.0 %) 20 H Absolute Lymphocytes (1.2 - 3.4 /CUMM) 0.9 L Lymphocytes (20.5 - 51.1 %) 8 L Monocytes (1.7 - 9.3 %) 3 Absolute Monocytes (0.10 - 0.60 /CUMM) 1.0 H Absolute Eosinophils (0.0 - 0.7 /CUMM) 0 Absolute Basophils (0.0 - 0.2 /CUMM) 0 Metamyelocytes (0.0 - 1.0 %) 7 H Myelocytes (0 - 0 %) 2 H Nucleated RBCs (0.0 - 0.0 /100WBC) 1 H Platelet Estimate (ADEQUATE) ADEQUATE Polychromasia 1+ Basophilic Stippling 1+ Anisocytosis 1+ Stomatocytes 1+ Last 24 Hours of Edilberto Results: Urine culture January 31 negative Blood cultures January 30 one bottle positive for diphtheroids Recent Imaging Studies: Chest x-ray February 02 reveals a left lower lobe and right mid and lower lung airspace opacities Assessment/Plan ID Impression: Clinically improved, with improvement in his respiratory status and with his temperatures remaining normal (on steroids), but with a marked increase in his white blood cell count, most likely secondary to the steroids. He is now on Ceftazidime alone for a presumed pneumonia in the setting of recent chemotherapy for recently diagnosed gastric cancer. He did receive Neupogen nearly one week prior to admission, but it is unlikely that this is now responsible for his leukocytosis. The positive blood culture for diphtheroids likely represents a contaminant, with the second set remaining negative. Suggestion: 1. Steroid taper per Pulmonary 2. Continue Ceftazidime
--- NOTE | 2018-02-02 18:38 | PN- Cardiology ---
Subjective Subjective: Feels as though his breathing has improved. Objective Vital Signs and I&Os Vital Signs Date Time Temp Pulse Resp B/P B/P Pulse O2 O2 Flow FiO2 Mean Ox Delivery Rate 02/02 1438 98.1 72 20 138/60 96 Nasal Cannula 02/02 0936 69 118/58 02/02 0910 96 Nasal 1.0L Cannula 02/02 0800 94 Nasal 1.0L Cannula 02/02 0630 98.6 69 24 118/58 97 02/02 0011 72 98 02/01 2314 96 Nasal 1.0L Cannula 02/01 2219 97.4 70 21 120/72 96 02/01 2219 97.8 60 18 112/70 97 02/01 2023 99 Nasal 2.0L Cannula 02/02 2000 99 Nasal 2.0L Cannula Intake & Output 02/02 1600 02/02 0800 02/02 0000 02/01 1600 02/01 0800 02/01 0000 Intake Total 500 360 20 130 Output Total 325 200 100 100 Balance 500 -325 160 -80 30 Intake, IV 50 260 20 130 Intake, Oral 450 100 0 Output, Urine 325 200 100 100 Patient 178 lb 173 lb 165 lb Weight Weight Bed scale Bed scale Measurement Method Physical Exam: Well-developed, well-nourished elderly male who appears pale, but in no acute distress w/ nasal oxygen in place. Neck: No JVD, no bruits. Lungs: Decreased breath sounds at the bases bilaterally. Heart: S1, S2 with no murmur, gallop, or rub. Abdomen: Soft, nontender, positive bowel sounds. Extremities: 1+ bilateral lower extremity edema. Current Medications: Current Medications Sig/Lacey Start time Last Medication Dose Route Stop Time Status Admin Albuterol Sulfate 3 ML TID 01/31 1600 AC 02/02 INH 1403 Artificial Tears 2 GTT 4 TIMES/DAY 02/02 174 CAN OPH Artificial Tears 2 GTT 4 TIMES/DAY PRN 02/02 1730 AC OPH Aspirin Buffered 81 MG DAILY 01/31 1000 AC 02/02 PO 0936 Atorvastatin Calcium 80 MG 1700 01/31 1700 AC 02/02 PO 1746 Ceftazidime 1,000 MG IQ8 01/31 0000 AC 02/02 IV 1746 Clopidogrel Bisulfate 75 MG DAILY 01/31 1000 AC / PO 0936 Diphenhydramine HCl 12.5 MG ONCE ONE 02/02 1745 CAN PO 02/02 1746 Diphenhydramine HCl 12.5 MG ONCE ONE 02/02 1730 DC PO 02/02 1731 Ferrous Sulfate 325 MG DAILY 01/31 1000 AC 02/02 PO 0936 Furosemide 20 MG DAILY 02/01 1034 DC 02/02 PO 0936 Ipratropium [place] 2.5 ML TID 01/31 1600 AC 02/02 INH 1403 Melatonin 6 MG AT BEDTIME 01/31 2200 AC 02/01 PO 2211 Methylprednisolone 40 MG Q12 02/01 2200 DC 02/02 IV 0916 Metoprolol Succinate 50 MG DAILY 01/31 1000 AC 02/02 PO 0936 Omeprazole 40 MG DAILY AC 01/31 0700 AC 02/02 PO 0752 Patient Medication 1 ED ONE ONE 02/02 1415 DC Teaching ED 02/02 1416 Polyethylene Glycol 17 GM DAILY 02/02 1000 AC PO Prednisone 10 MG DAILY 02/13 1000 AC PO 02/14 1001 Prednisone 20 MG DAILY 02/11 1000 AC PO 02/12 1001 Prednisone 30 MG DAILY 02/09 1000 AC PO 02/10 1001 Prednisone 40 MG DAILY 02/07 1000 AC PO 02/08 1001 Prednisone 50 MG DAILY 02/05 1000 AC PO 02/06 1001 Prednisone 60 MG DAILY 02/03 1000 CAN PO 02/15 0959 Prednisone 60 MG DAILY 02/03 1000 AC PO 02/04 1001 Senna/Docusate Sodium 1 TAB BID 02/02 1000 AC 02/02 PO 1122 Vancomycin HCl 1,000 MG DAILY 01/30 2300 DC 02/01 Dextrose/Water 250 ML IV 0808 Results Last 48 Hrs of Labs/Mics: Laboratory Tests 02/02/18 0436: Anion Gap 3 L, Estimated GFR > 60, Glucose 153 H, Calcium 8.0 L, Phosphorus 3.0, Magnesium 2.2, Total Bilirubin 0.4, AST 31, ALT 25, Albumin 2.3 L, CBC w Diff MAN DIFF ORDERED, RBC 2.84 L, MCV 88.8, MCH 28.9, MCHC 32.5 L, RDW 17.2 H, MPV 7.9, Gran % 95.3 H, Lymphocytes % 2.2 L, Monocytes % 2.5, Eosinophils % 0, Basophils % 0, Absolute Granulocytes 39.6 H, Segmented Neutrophils 60, Band Neutrophils 20 H, Absolute Lymphocytes 0.9 L, Lymphocytes 8 L, Monocytes 3, Absolute Monocytes 1.0 H, Absolute Eosinophils 0, Absolute Basophils 0, Metamyelocytes 7 H, Myelocytes 2 H, Nucleated RBCs 1 H, Platelet Estimate ADEQUATE, Polychromasia 1+, Basophilic Stippling 1+, Anisocytosis 1+, Stomatocytes 1+ 02/01/18 1130: pH 7.38, pCO2 58 H, pO2 79 L, HCO3 33 H, ABG O2 Sat (Measured) 96.0, P-50 ( Temp Corrected) N, Carboxyhemoglobin 0.6 L, O2 Concentration % 2L, Temperature 98.6, O2 Delivery Method N, Phlebotomy Draw Site LEFT RADIAL 02/01/18 1000: Sodium Cancelled, Potassium Cancelled, Chloride Cancelled, Carbon Dioxide Cancelled, Anion Gap Cancelled, BUN Cancelled, Creatinine Cancelled, Glucose Cancelled, Calcium Cancelled, Phosphorus Cancelled, Magnesium Cancelled, Total Bilirubin Cancelled, AST Cancelled, ALT Cancelled, Albumin Cancelled 02/01/18 0434: Anion Gap 5, Estimated GFR > 60, BUN/Creatinine Ratio 30.9 H, CBC w Diff MAN DIFF ORDERED, RBC 3.13 L, MCV 89.5, MCH 28.6, MCHC 31.9 L, RDW 17.2 H, MPV 8.0, Gran % 95.4 H, Lymphocytes % 2.3 L, Monocytes % 2.2, Eosinophils % 0.1, Basophils % 0, Absolute Granulocytes 23.3 H, Segmented Neutrophils 52, Band Neutrophils 17 H, Absolute Lymphocytes 0.6 L, Lymphocytes 5 L, Monocytes 6, Absolute Monocytes 0.5, Absolute Eosinophils 0, Absolute Basophils 0, Metamyelocytes 4 H, Myelocytes 14 H, Promyelocytes 2 H, Nucleated RBCs 2 H, Platelet Estimate ADEQUATE, Polychromasia 1+, Basophilic Stippling SLIGHT, Anisocytosis 1+, Fld Total RBCs Counted 100 02/01/18 0031: Anion Gap 5, Estimated GFR > 60, Glucose 152 H, Calcium 7.8 L, Phosphorus 4.4, Magnesium 2.2, Total Bilirubin 0.5, AST 46, ALT 33, Albumin 2.4 L 01/31/18 2140: pH 7.41, pCO2 53 H, pO2 91, HCO3 32 H, ABG O2 Sat (Measured) 98.0, Carboxyhemoglobin 0.3 L, O2 Concentration % 30%, Respiration Rate 24, O2 Delivery Method BIPAP, Vent Mode ST, Expiratory Pressure 6, Inspiratory Pressure 20, Phlebotomy Draw Site LEFT RADIAL Microbiology 01/31 2030 URINE ROUT: Legionella Antigen - COMP 01/31 2030 URINE ROUT: Streptococcus pneumoniae Antigen (M - COMP 01/31 2030 URINE ROUT: Urine Culture - COMP 01/31 2025 UPPER RESP: Surveillance Culture - COMP 01/31 2025 GI: Surveillance Culture - COMP Recent Imaging Studies: CXR 02/02/2018: Left lower lobe and right mid and lower lung airspace opacities consistent with pneumonia. Echocardiogram 02/01/2018: Normal size left ventricle. Normal left ventricular wall thickness. Hypokinetic distal septum. Normal systolic function with estimated EF greater than 55%. Abnormal relaxation filling pattern of the left ventricle for age (stage 1 diastolic dysfunction). Mild right ventricular dilatation. Mild atrial dilatation. Very mild aortic stenosis. Trace tricuspid regurgitation. Mild pulmonic regurgitation. Chest CTA 01/30/2018: No CT evidence for pulmonary embolism. Dependent bibasilar airspace disease. Cholelithiasis without evidence of cholecystitis. Assessment/Plan Assessment/Plan [id number] w/ hx previous hyponatremia, long-standing tob use, HTN, HLD, & CAD who was recently hospitalized here (10/31-11/05/2017) after presenting w/ new onset HFpEF and the discovery of anemia for which he initially refused endoscopy /colonoscopy and who after a stable initial course became hypotensive on 2718 w/ ECG changes, positive troponins, and worsening LV function by echo who was stabilized and ultimately transferred to [facility] where he underwent urgent cardiac catheterization that revealed a high-grade proximal LAD stenosis for which he underwent PCI/HARPREET (Synergy) w/ gradual improvement in his overall status and who presented from [facility] with complaints of weakness and the discovery of profound anemia requiring admission (11/26/2017-12/01/2017) w/ the ultimate discovery of a 5 cm x 6 cm ulcerated, friable, irregular, necrotic antral lesion by EGD on 11/27/2017 w/ pathology specimen c/w adenocarcinoma who presented to the ED for evaluation/management after his visiting nurse found him to be hypoxemic (02 78% on RA) w/ evidence of PNA. He continues to improve on his present regimen and is afebrile w/ a significantly elevated WBC count felt 2/2 to steroid therapy. Recommendations: * Continue on steroids and antimicrobial therapy as per ID/pulmonary medicine. * Note drop in H/H since admission. Check all stools for occult blood. Aim to maintain hemoglobin at or above 8.0 g/dl, given his known history of CAD. * GI consultation if his stool is heme positive. Continue PPI. * Continue dual antiplatelet therapy given recent deployment of HARPREET. * DVT prophylaxis. Continue telemetry? Yes
[2018-02-02 22:44] VITALS: BP 130/60
[2018-02-03 06:00] VITALS: BP 102/56
[2018-02-03 07:54] LABS: ABSOLUTE BASOPHIL COUNT 0 /CUMM (0.0-0.2); ABSOLUTE EOSINOPHIL COUNT 0 /CUMM (0.0-0.7); ABSOLUTE GRANULOCYTE CT 48.9 /CUMM (1.4-6.5); ABSOLUTE MONOCYTE COUNT 1.5 /CUMM (0.10-0.60); BASOPHIL % 0 % (0.0-2.0); EOSINOPHIL % 0 % (0-5); GRANULOCYTE % 93.2 % (42.2-75.2); HEMATOCRIT 25.5 % (42-52); MEAN CORPUSCULAR HGB CONC 32.6 G/DL (33.0-37.0); MEAN CORPUSCULAR VOLUME 88.9 FL (80.0-94.0); MEAN PLATELET VOLUME 7.4 FL (7.4-10.4); PLATELET COUNT 194 /CUMM (130-400); RBC DISTRIBUTION WIDTH 17.2 % (11.5-14.5); RED BLOOD CELL CT 2.86 /CUMM (4.70-6.10)
--- NOTE | 2018-02-03 08:36 | PN- Housestaff ---
Rex Ruiz 02/03/18 0835: Subjective Follow-up For: Acute hypoxemic hypercarbic respiratory failure Suspected pneumonia, treated for healthcare associated Subjective: Feels well overall. Was on BiPAP overnight. States having the good night sleep. Good appetite. No breathing difficulty. Mentating well. Intermittent cough. No fevers or chills overnight. No reported diarrhea. No nausea or vomiting. Review of Systems Constitutional: Reports: see HPI. Objective Last 24 Hrs of Vital Signs/I&O Vital Signs Date Time Temp Pulse Resp B/P B/P Pulse O2 O2 Flow FiO2 Mean Ox Delivery Rate 02/03 1315 96 Room Air 02/03 1104 76 130/64 02/03 1028 96 Nasal 1.0L Cannula 02/03 08 Nasal 1.0L Cannula 02/03 06 97.9 78 20 102/56 91 03/ 0000 BIPAP 02/02 2244 97.4 78 20 130/60 96 Nasal Cannula 02/02 1855 96 Nasal 1.0L Cannula 02/02 1600 Nasal 1.0L Cannula 02/02 1438 98.1 72 20 138/60 96 Nasal Cannula Intake & Output 02/03 1600 02/03 0800 02/03 0000 Intake Total 400 Output Total 650 700 Balance -650 -300 Intake, Oral 400 Output, Urine 650 700 Patient 180 lb Weight Weight Bed scale Measurement Method Physical Exam General Appearance: Alert, Oriented X3 Cardiovascular: Regular Rate, Normal S1, Normal S2 Lungs: Clear to Auscultation, Normal Air Movement Abdomen: Normal Bowel Sounds, Soft Extremities: No Clubbing, No Cyanosis Current Medications: Current Medications Sig/Lacey Start time Last Medication Dose Route Stop Time Status Admin Albuterol Sulfate 3 ML TID 01/31 1600 AC 02/03 INH 1024 Artificial Tears 2 GTT 4 TIMES/DAY 02/02 1745 CAN OPH Artificial Tears 2 GTT 4 TIMES/DAY PRN 02/02 1730 AC 02/02 OPH 1946 Aspirin Buffered 81 MG DAILY 01/31 1000 AC 02/03 PO 1105 Atorvastatin Calcium 80 MG 1700 01/31 1700 AC / PO 1746 Ceftazidime 1,000 MG IQ8 01/31 0000 AC 02/03 IV 0831 Clopidogrel Bisulfate 75 MG DAILY 01/31 1000 AC 02/03 PO 1105 Diphenhydramine HCl 12.5 MG ONCE ONE 02/02 1745 CAN PO 02/02 1746 Diphenhydramine HCl 12.5 MG ONCE ONE 02/02 1730 DC 02/02 PO 02/02 1731 2000 Ferrous Sulfate 325 MG DAILY 01/31 1000 AC 02/03 PO 1104 Ipratropium [place] 2.5 ML TID 01/31 1600 AC 02/03 INH 1024 Melatonin 6 MG AT BEDTIME 01/31 2200 AC 02/01 PO 2211 Metoprolol Succinate 50 MG DAILY 01/31 1000 AC 02/03 PO 1104 Omeprazole 40 MG DAILY AC 01/31 0700 AC 02/03 PO 0602 Patient Medication 1 ED ONE ONE 02/02 1415 DC 02/03 Teaching ED 02/02 1416 0706 Polyethylene Glycol 17 GM DAILY 02/02 1000 AC 02/03 PO 1105 Prednisone 10 MG DAILY 02/13 1000 AC PO 02/14 1001 Prednisone 20 MG DAILY 02/11 1000 AC PO 02/12 1001 Prednisone 30 MG DAILY 02/09 1000 AC PO 02/10 1001 Prednisone 40 MG DAILY 02/07 1000 AC PO 02/08 1001 Prednisone 50 MG DAILY 02/05 1000 AC PO 02/06 1001 Prednisone 60 MG DAILY 02/03 1000 AC 02/03 PO 02/04 1001 1104 Senna/Docusate Sodium 1 TAB BID 02/02 1000 AC 02/03 PO 1104 Last 24 Hrs of Lab/Edilberto Results Last 24 Hrs of Labs/Mics: Laboratory Tests 02/03/18 0520: Anion Gap 4 L, Estimated GFR > 60, BUN/Creatinine Ratio 25.0, CBC w Diff MAN DIFF ORDERED, RBC 2.86 L, MCV 88.9, MCH 29.0, MCHC 32.6 L, RDW 17.2 H, MPV 7.4, Gran % 93.2 H, Lymphocytes % 3.9 L, Monocytes % 2.9, Eosinophils % 0, Basophils % 0, Absolute Granulocytes 48.9 H, Segmented Neutrophils 67, Band Neutrophils 18 H, Absolute Lymphocytes 2.0, Lymphocytes 2 L, Monocytes 3, Absolute Monocytes 1.5 H, Absolute Eosinophils 0, Absolute Basophils 0, Metamyelocytes 5 H, Myelocytes 5 H, Nucleated RBCs 1 H, Platelet Estimate VERIFIED BY SMEAR, Polychromasia 1+, Poikilocytosis 1+, Basophilic Stippling 1+, Anisocytosis 1+, Ovalocytes 1+ Assessment/Plan Assessment: 82-year-old gentleman with history of coronary artery disease, recent and NSTEMI requiring stent placement, hypertension, hyperlipidemia on chemotherapy for gastric cancer, was recently brought in because of concerns for hypoxemia, admitted to telemetry and found to have worsening breathing, ABGs revealing severe hypercarbia prompting transfer to intensive care unit. Now on Tele for two days, respiratory status stable. 1. Acute hypoxemic hypercarbic respiratory failure. continue ceftazidime. White count continues to worsen. No fevers or chills. Continue by mouth prednisone. 2. Systolic heart failure, last known EF 35% in addition to diastolic failure. Lasix was held on admission. On exam, patient has crackles as well as peripheral edema. Lasix on hold. BUN/creatinine continues to improve. 3. Metabolic disturbances. Noted hyponatremia and hypochloremia, combination of loop diuretic use as well as bicarbonate retention (due to COPD and CO2 retention). Low albumin is likely contributing to the low anion gap. Lasix on hold. Improvement in hyponatremia and low chloride. Full code. DVT prophylaxis-Alps. Heart healthy diet. Problem List: 1. Leukocytosis Pain Ratin Pain Location: N/A Pain Goal: Remain pain free Pain Plan: PRN Tomorrow's Labs & Rationales: Leukocytosis Kidney function Davion ERICKSON,Reji 02/03/18 1026: Attending MD Review Statement Attending Statement Attending MD Statement: examined this patient, discuss w/resident/PA/HOOK UP, agreed w/resident/PA/HOOK UP, reviewed EMR data (avail), discussed with nursing, discussed with case mgmt, amended to note Attending Assessment/Plan: Patient seen and examined. Resting comfortably not in any acute distress. No issues overnight. No events on telemetry monitoring overnight. Denies chest pain or shortness of breath. Denies palpitations. Is alert and oriented 3 and conversant appropriately. On examination he has adequate air entry bilaterally with mild bilateral basilar crepitus. Abdomen is soft and nontender. He has no peripheral edema. White cell count is trending upwards today. He is however afebrile and hemodynamically stable, although she is blood pressure is on the lower side this morning. He denies any diarrhea. He is actually asking for more bowel regimen to help move his bowels. Problems: 1. Acute hypoxic and hypercapnic respiratory failure. 2. Severe respiratory acidosis; resolved 3. Recently diagnosed gastric cancer started on chemotherapy. 4. Chronic systolic heart failure. 5. Coronary artery disease status post non-ST elevation LA and PCI with drug- eluting stent placement 6. Ventricular ectopy. Plan: -Continue bronchodilator therapy. Continue steroid taper. Patient is currently on oral steroids. -It is unclear why his white cell count is significantly elevated. He is on steroid therapy. He is receiving antibiotic therapy for pneumonia. He presented with diarrhea however this has since resolved. Hematology follow-up appreciated. No intervention recommended at this time. -One set of blood cultures is growing diphtheroids species. This likely represents contamination. -Follow-up with the ID service regarding timing of transitioning patient to oral antibiotic therapy particularly in view of his significantly elevated white cell count. -Mobilize patient. Wean off oxygen supplementation as tolerated. -Cardiology follow-up done yesterday appreciated. -Discontinue telemetry monitoring. -Downward trending hemoglobin level noted. Obtain stool guaiac. Continue dual antiplatelet therapy for now.
[2018-02-03 09:20] LABS: WHITE BLOOD CELL COUNT 52.5 /CUMM (4.8-10.8)
--- NOTE | 2018-02-03 10:11 | PN- Oncology ---
Subjective Subjective: He feels well without any new symptoms. Breathing is a littlebit better. He has no fever or chills Review of Systems Constitutional: Denies: chills, fever. Cardiovascular: Denies: chest pain. Respiratory: Reports: short of breath. Gastrointestinal: Denies: abdominal pain. Hematologic/Endocrine: Denies: bruising, bleeding. All Other Systems: Reviewed and Negative Objective Vital Signs and I&Os Vital Signs Date Time Temp Pulse Resp B/P B/P Pulse O2 O2 Flow FiO2 Mean Ox Delivery Rate 02/03 600 97.9 78 20 102/56 91 / 0000 BIPAP 02/02 2244 97.4 78 20 130/60 96 Nasal Cannula 02/02 1855 96 Nasal 1.0L Cannula 02/02 1600 Nasal 1.0L Cannula 02/02 1438 98.1 72 20 138/60 96 Nasal Cannula Intake & Output 02/03 1600 02/03 0800 02/03 0000 / 1600 02/02 0800 02/02 0000 Intake Total 400 500 Output Total 650 700 325 Balance -650 -300 500 -325 Intake, IV 50 Intake, Oral 400 450 Output, Urine 650 700 325 Patient 81.42 kg 80.938 kg Weight Weight Bed scale Measurement Method Physical Exam: General Appearance: no apparent distress, alert, awake, comfortable, thin Head: atraumatic, normal appearance Respiratory: chest non-tender, no respiratory distress, quiet respiration, decreased breath sounds (lower lobes), on 1L NC Cardiovascular: regular rate/rhythm, edema Gastrointestinal: normal bowel sounds, soft, non-tender Extremities: pedal edema Neurologic/Psych: awake, alert, oriented x 3 Skin: warm/dry Current Medications: Current Medications Sig/Lacey Start time Last Medication Dose Route Stop Time Status Admin Albuterol Sulfate 3 ML TID 01/31 1600 AC 02/02 INH 1855 Artificial Tears 2 GTT 4 TIMES/DAY 02/02 1745 CAN OPH Artificial Tears 2 GTT 4 TIMES/DAY PRN 02/02 1730 AC 02/02 OPH 1946 Aspirin Buffered 81 MG DAILY 01/31 1000 AC /05 PO 0936 Atorvastatin Calcium 80 MG 1700 01/31 1700 AC 03 PO 1746 Ceftazidime 1,000 MG IQ8 01/31 0000 AC 02/03 IV 0831 Clopidogrel Bisulfate 75 MG DAILY 01/31 1000 AC 02/02 PO 0936 Diphenhydramine HCl 12.5 MG ONCE ONE 02/02 1745 CAN PO 02/02 1746 Diphenhydramine HCl 12.5 MG ONCE ONE 02/02 1730 DC 02/02 PO 02/02 1731 2000 Ferrous Sulfate 325 MG DAILY 01/31 1000 AC 02/02 PO 0936 Furosemide 20 MG DAILY 02/01 1034 DC 02/02 PO 0936 Ipratropium [place] 2.5 ML TID 01/31 1600 AC 02/02 INH 1855 Melatonin 6 MG AT BEDTIME 01/31 2200 AC 02/01 PO 2211 Methylprednisolone 40 MG Q12 02/01 2200 DC 02/02 IV 0916 Metoprolol Succinate 50 MG DAILY 01/31 1000 AC 02/02 PO 0936 Omeprazole 40 MG DAILY AC 01/31 0700 AC 02/03 PO 0602 Patient Medication 1 ED ONE ONE 02/02 1415 DC 02/03 Teaching ED 02/02 1416 0706 Polyethylene Glycol 17 GM DAILY 02/02 1000 AC PO Prednisone 10 MG DAILY 02/13 1000 AC PO 02/14 1001 Prednisone 20 MG DAILY 02/11 1000 AC PO 02/12 1001 Prednisone 30 MG DAILY 02/09 1000 AC PO 02/10 1001 Prednisone 40 MG DAILY 02/07 1000 AC PO 02/08 1001 Prednisone 50 MG DAILY 02/05 1000 AC PO 02/06 1001 Prednisone 60 MG DAILY 02/03 1000 CAN PO 02/15 0959 Prednisone 60 MG DAILY 02/03 1000 AC PO 02/04 1001 Senna/Docusate Sodium 1 TAB BID 02/02 1000 AC 02/02 PO 1122 Results Last 24 Hours of Lab Results: Laboratory Tests 02/03 0520 Chemistry Sodium (137 - 145 mmol/L) 133 L Potassium (3.5 - 5.1 mmol/L) 4.1 Chloride (98 - 107 mmol/L) 91 L Carbon Dioxide (22 - 30 mmol/L) 38 H Anion Gap (5 - 16) 4 L BUN (9 - 20 mg/dL) 20 Creatinine (0.7 - 1.2 mg/dL) 0.8 Estimated GFR (>60 ml/min) > 60 BUN/Creatinine Ratio (7 - 25 %) 25.0 Hematology CBC w Diff MAN DIFF ORDERED WBC (4.8 - 10.8 /CUMM) 52.5 *H RBC (4.70 - 6.10 /CUMM) 2.86 L Hgb (14.0 - 18.0 G/DL) 8.3 L Hct (42 - 52 %) 25.5 L MCV (80.0 - 94.0 FL) 88.9 MCH (27.0 - 31.0 PG) 29.0 MCHC (33.0 - 37.0 G/DL) 32.6 L RDW (11.5 - 14.5 %) 17.2 H Plt Count (130 - 400 /CUMM) 194 MPV (7.4 - 10.4 FL) 7.4 Gran % (42.2 - 75.2 %) 93.2 H Lymphocytes % (20.5 - 51.1 %) 3.9 L Monocytes % (1.7 - 9.3 %) 2.9 Eosinophils % (0 - 5 %) 0 Basophils % (0.0 - 2.0 %) 0 Absolute Granulocytes (1.4 - 6.5 /CUMM) 48.9 H Segmented Neutrophils (42.2 - 75.2 %) 67 Band Neutrophils (0.0 - 5.0 %) 18 H Absolute Lymphocytes (1.2 - 3.4 /CUMM) 2.0 Lymphocytes (20.5 - 51.1 %) 2 L Monocytes (1.7 - 9.3 %) 3 Absolute Monocytes (0.10 - 0.60 /CUMM) 1.5 H Absolute Eosinophils (0.0 - 0.7 /CUMM) 0 Absolute Basophils (0.0 - 0.2 /CUMM) 0 Metamyelocytes (0.0 - 1.0 %) 5 H Myelocytes (0 - 0 %) 5 H Nucleated RBCs (0.0 - 0.0 /100WBC) 1 H Platelet Estimate (ADEQUATE) VERIFIED BY SMEAR Polychromasia 1+ Poikilocytosis 1+ Basophilic Stippling 1+ Anisocytosis 1+ Ovalocytes 1+ Assessment/Plan Assessment/Recommendations: Mr. Merritt is an 82-year-old male with HTN, HLD, diastolic heart failure, NSTEMI s/p PCI with HARPREET, and stage III gastric cancer being treated by Dr. Reena Jaramillo with FLOT who presented to the hospital with dyspnea and hypoxia. He was noted to be hypoxic on RA with oxygen saturation of around 70s. Imaging studies suggest pneumonia. He is currently being treated with ceftazidime. Infectious disease and pulmology have been consulted and are following patient. Blood culture was positive for dipththeroids on one set which is like a contaminant. He is on Solu-Medrol with transition to prednisone. He is noted to have leukocytosis. This is likely multifactorial with Neulasta recently, Solu-Medrol , and infection. No additional intervention is needed at this time. Acute hypoxic respiratory failure secondary to pneumonia: -follow up pulmonology recommendations -antibiotics as per ID and primary Leukocytosis: -antibiotics as per ID and primary -monitor CBC -no intervention needed at the moment Stage III gastric cancer: -follow up with Dr. Reena Jaramillo after discharge Please call [phone] with any questions or concerns. May contact Dr. Jaramillo's office for more patient specific oncologic questions. Problem List: 1. Gastric cancer 2. Acute respiratory failure with hypoxia and hypercarbia 3. Leukocytosis 4. Chronic anemia
--- NOTE | 2018-02-03 11:32 | PN- Pulmonary ---
Subjective HPI/Critical Care Issues: Patient seen and examined. He appears to be doing well however his white count has significantly increased to 52,000. Objective Current Medications: Current Medications Sig/Lacey Start time Last Medication Dose Route Stop Time Status Admin Albuterol Sulfate 3 ML TID 01/31 1600 AC 02/03 INH 1024 Artificial Tears 2 GTT 4 TIMES/DAY / 1745 CAN OPH Artificial Tears 2 GTT 4 TIMES/DAY PRN 02/02 1730 AC 02/02 OPH 1946 Aspirin Buffered 81 MG DAILY 01/31 1000 AC 02/03 PO 1105 Atorvastatin Calcium 80 MG 1700 01/31 1700 AC 02/02 PO 1746 Ceftazidime 1,000 MG IQ8 01/31 0000 AC 02/03 IV 0831 Clopidogrel Bisulfate 75 MG DAILY 01/31 1000 AC 02/03 PO 1105 Diphenhydramine HCl 12.5 MG ONCE ONE 02/02 1745 CAN PO 02/02 1746 Diphenhydramine HCl 12.5 MG ONCE ONE 02/02 1730 DC 02/02 PO 02/02 1731 2000 Ferrous Sulfate 325 MG DAILY 01/31 1000 AC 02/03 PO 1104 Furosemide 20 MG DAILY 02/01 1034 DC 02/02 PO 0936 Ipratropium [place] 2.5 ML TID 01/31 1600 AC 02/03 INH 1024 Melatonin 6 MG AT BEDTIME 01/31 2200 AC 02/01 PO 2211 Methylprednisolone 40 MG Q12 02/01 2200 DC 02/02 IV 0916 Metoprolol Succinate 50 MG DAILY 01/31 1000 AC 02/03 PO 1104 Omeprazole 40 MG DAILY AC 01/31 0700 AC 02/03 PO 0602 Patient Medication 1 ED ONE ONE 02/02 1415 DC 02/03 Teaching ED 02/02 1416 0706 Polyethylene Glycol 17 GM DAILY 02/02 1000 AC 02/03 PO 1105 Prednisone 10 MG DAILY 02/13 1000 AC PO 02/14 1001 Prednisone 20 MG DAILY 02/11 1000 AC PO 02/12 1001 Prednisone 30 MG DAILY 02/09 1000 AC PO 02/10 1001 Prednisone 40 MG DAILY 02/07 1000 AC PO 02/08 1001 Prednisone 50 MG DAILY 02/05 1000 AC PO 02/06 1001 Prednisone 60 MG DAILY 02/03 1000 CAN PO 02/15 0959 Prednisone 60 MG DAILY 02/03 1000 AC 02/03 PO 02/04 1001 1104 Senna/Docusate Sodium 1 TAB BID 02/02 1000 AC 02/03 PO 1104 Vital Signs & I&O Last 24 Hrs of Vitals and I&O: Vital Signs Date Time Temp Pulse Resp B/P B/P Pulse O2 O2 Flow FiO2 Mean Ox Delivery Rate 02/03 1104 76 130/64 02/03 1028 96 Nasal 1.0L Cannula 02/03 0800 Nasal 1.0L Cannula 02/03 0600 97.9 78 20 102/56 91 02/03 0000 BIPAP 02/02 2244 97.4 78 20 130/60 96 Nasal Cannula 02/02 1855 96 Nasal 1.0L Cannula 02/02 1600 Nasal 1.0L Cannula 02/02 1438 98.1 72 20 138/60 96 Nasal Cannula Intake & Output 02/03 1600 02/03 0800 02/03 0000 Intake Total 400 Output Total 650 700 Balance -650 -300 Intake, Oral 400 Output, Urine 650 700 Patient 180 lb Weight Weight Bed scale Measurement Method Exam Other Physical Findings: gen awake heent ncat cvs s1, s2 lungs bilateral crackles/rhonchi abd soft, bs+ ext without edema Results Last 24 Hrs of Lab Results: Laboratory Tests 02/03/18 0520: Anion Gap 4 L, Estimated GFR > 60, BUN/Creatinine Ratio 25.0, CBC w Diff MAN DIFF ORDERED, RBC 2.86 L, MCV 88.9, MCH 29.0, MCHC 32.6 L, RDW 17.2 H, MPV 7.4, Gran % 93.2 H, Lymphocytes % 3.9 L, Monocytes % 2.9, Eosinophils % 0, Basophils % 0, Absolute Granulocytes 48.9 H, Segmented Neutrophils 67, Band Neutrophils 18 H, Absolute Lymphocytes 2.0, Lymphocytes 2 L, Monocytes 3, Absolute Monocytes 1.5 H, Absolute Eosinophils 0, Absolute Basophils 0, Metamyelocytes 5 H, Myelocytes 5 H, Nucleated RBCs 1 H, Platelet Estimate VERIFIED BY SMEAR, Polychromasia 1+, Poikilocytosis 1+, Basophilic Stippling 1+, Anisocytosis 1+, Ovalocytes 1+ Impression/Plan Impression/Plan Impression/Plan: Impressoin 82 year old man. Hx significant for gastric cancer underoing chemotherapy. HTN, diastolic chf, hx of osteomyelitis. Hx of ACS with pci. * leukocytosis secondary to either neupogen use vs pneumonia Plan -cont abx, f/u ID recommendations -reduce prednisone to 40mg and reduce by 10mg every other day - likely underlying COPD with exacerbation as well -cont bipap overnight tonight then will trial without bipap -f/u cardiology recs -trc/nebs -f/u all cultures DVT prophylaxis at all times
--- NOTE | 2018-02-03 12:03 | PN- Infect Dx ---
Subjective Subjective: Afebrile on steroids. He feels well with no complaints Objective Last 24 Hrs of Vital Signs/I&O Vital Signs Date Time Temp Pulse Resp B/P B/P Pulse O2 O2 Flow FiO2 Mean Ox Delivery Rate 02/03 1104 76 130/64 02/03 1028 96 Nasal 1.0L Cannula 02/03 0800 Nasal 1.0L Cannula 02/03 0600 97.9 78 20 102/56 91 02/03 0000 BIPAP 02/02 2244 97.4 78 20 130/60 96 Nasal Cannula 02/02 1855 96 Nasal 1.0L Cannula 02/02 1600 Nasal 1.0L Cannula 02/02 1438 98.1 72 20 138/60 96 Nasal Cannula Intake & Output 02/03 1600 02/03 0800 02/03 0000 Intake Total 400 Output Total 650 700 Balance -650 -300 Intake, Oral 400 Output, Urine 650 700 Patient 180 lb Weight Weight Bed scale Measurement Method Physical Exam Other Physical Findings: He appears comfortable in no acute distress Lungs bilateral crackles long term up Heart regular rhythm with no murmur Abdomen is mildly distended, nontender with positive bowel sounds Extremities no cyanosis, clubbing or edema; PICC in the right upper extremity with no inflammation at the site Results Last 24 Hours of Lab Results: Laboratory Tests 02/03 0520 Chemistry Sodium (137 - 145 mmol/L) 133 L Potassium (3.5 - 5.1 mmol/L) 4.1 Chloride (98 - 107 mmol/L) 91 L Carbon Dioxide (22 - 30 mmol/L) 38 H Anion Gap (5 - 16) 4 L BUN (9 - 20 mg/dL) 20 Creatinine (0.7 - 1.2 mg/dL) 0.8 Estimated GFR (>60 ml/min) > 60 BUN/Creatinine Ratio (7 - 25 %) 25.0 Hematology CBC w Diff MAN DIFF ORDERED WBC (4.8 - 10.8 /CUMM) 52.5 *H RBC (4.70 - 6.10 /CUMM) 2.86 L Hgb (14.0 - 18.0 G/DL) 8.3 L Hct (42 - 52 %) 25.5 L MCV (80.0 - 94.0 FL) 88.9 MCH (27.0 - 31.0 PG) 29.0 MCHC (33.0 - 37.0 G/DL) 32.6 L RDW (11.5 - 14.5 %) 17.2 H Plt Count (130 - 400 /CUMM) 194 MPV (7.4 - 10.4 FL) 7.4 Gran % (42.2 - 75.2 %) 93.2 H Lymphocytes % (20.5 - 51.1 %) 3.9 L Monocytes % (1.7 - 9.3 %) 2.9 Eosinophils % (0 - 5 %) 0 Basophils % (0.0 - 2.0 %) 0 Absolute Granulocytes (1.4 - 6.5 /CUMM) 48.9 H Segmented Neutrophils (42.2 - 75.2 %) 67 Band Neutrophils (0.0 - 5.0 %) 18 H Absolute Lymphocytes (1.2 - 3.4 /CUMM) 2.0 Lymphocytes (20.5 - 51.1 %) 2 L Monocytes (1.7 - 9.3 %) 3 Absolute Monocytes (0.10 - 0.60 /CUMM) 1.5 H Absolute Eosinophils (0.0 - 0.7 /CUMM) 0 Absolute Basophils (0.0 - 0.2 /CUMM) 0 Metamyelocytes (0.0 - 1.0 %) 5 H Myelocytes (0 - 0 %) 5 H Nucleated RBCs (0.0 - 0.0 /100WBC) 1 H Platelet Estimate (ADEQUATE) VERIFIED BY SMEAR Polychromasia 1+ Poikilocytosis 1+ Basophilic Stippling 1+ Anisocytosis 1+ Ovalocytes 1+ Last 24 Hours of Edilberto Results: No new cultures Assessment/Plan ID Impression: Remains stable, with improvement in his respiratory status and with his temperatures remaining normal (on steroids), but with his white blood cell count continuing to increase, most likely secondary to the steroids, though he apparently received Neulasta (as opposed to Neupogen) which may also be contributing. He remains on Ceftazidime now Day 4 of treatment for a possible pneumonia in the setting of recent chemotherapy for recently diagnosed gastric cancer. Suggestion: 1. Continue steroid taper per Pulmonary 2. Discontinue Ceftazidime and follow off antibiotics
[2018-02-03 14:47] VITALS: BP 114/50
--- NOTE | 2018-02-03 19:44 | PN- Cardiology ---
Subjective Subjective: Feels as though his breathing has continued to slowly improve. Objective Vital Signs and I&Os Vital Signs Date Time Temp Pulse Resp B/P B/P Pulse O2 O2 Flow FiO2 Mean Ox Delivery Rate 02/03 1900 88 Room Air 02/03 1447 98.0 74 20 114/50 97 Room Air 02/03 1413 91 Room Air 02/03 1315 96 Room Air 02/03 1104 76 130/64 02/03 1028 96 Nasal 1.0L Cannula 02/03 0800 Nasal 1.0L Cannula 02/03 06 97.9 78 20 102/56 91 02/03 0000 BIPAP 02/02 2244 97.4 78 20 130/60 96 Nasal Cannula Intake & Output 02/03 1600 02/03 0800 02/03 0000 02/02 1600 02/02 0800 02/02 0000 Intake Total 610 400 500 Output Total 500 650 700 325 Balance 110 -650 -300 500 -325 Intake, IV 50 50 Intake, Oral 560 400 450 Output, Urine 500 650 700 325 Patient 180 lb 178 lb Weight Weight Bed scale Measurement Method Physical Exam: Well-developed, well-nourished elderly male who appears pale, but in no acute distress w/ nasal oxygen in place. Neck: No JVD, no bruits. Lungs: Decreased breath sounds at the bases bilaterally. Heart: S1, S2 with no murmur, gallop, or rub. Abdomen: Soft, nontender, positive bowel sounds. Extremities: 1+ bilateral lower extremity edema. Current Medications: Current Medications Sig/Lacey Start time Last Medication Dose Route Stop Time Status Admin Albuterol Sulfate 3 ML TID 01/31 1600 AC 02/03 INH 1900 Artificial Tears 2 GTT 4 TIMES/DAY PRN 02/02 1730 AC 02/03 OPH 1802 Aspirin Buffered 81 MG DAILY 01/31 1000 AC 02/03 PO 1105 Atorvastatin Calcium 80 MG 1700 01/31 1700 AC / PO 1802 Ceftazidime 1,000 MG IQ8 01/31 0000 DC 03 IV 0831 Clopidogrel Bisulfate 75 MG DAILY 01/31 1000 AC 03/ PO 1105 Ferrous Sulfate 325 MG DAILY 01/31 1000 AC 02/03 PO 1104 Ipratropium [place] 2.5 ML TID 01/31 1600 AC 02/03 INH 1900 Melatonin 6 MG AT BEDTIME 01/31 2200 AC 02/01 PO 2211 Metoprolol Succinate 50 MG DAILY 01/31 1000 AC 02/03 PO 1104 Omeprazole 40 MG DAILY AC 01/31 0700 AC 02/03 PO 0602 Patient Medication 1 ED ONE ONE 02/03 1515 OH Teaching ED 02/03 1516 Polyethylene Glycol 17 GM DAILY 02/02 1000 AC 02/03 PO 1105 Prednisone 10 MG DAILY 02/13 1000 CAN PO 02/14 1001 Prednisone 20 MG DAILY 02/11 1000 CAN PO 02/12 1001 Prednisone 30 MG DAILY 02/09 1000 CAN PO 02/10 1001 Prednisone 40 MG DAILY 02/07 1000 CAN PO 02/08 1001 Prednisone 10 MG DAILY 02/07 1000 AC PO 02/08 0959 Prednisone 20 MG DAILY 02/06 1000 AC PO 02/07 0959 Prednisone 50 MG DAILY 02/05 1000 CAN PO 02/06 1001 Prednisone 30 MG DAILY 02/05 1000 AC PO 02/06 0959 Prednisone 40 MG DAILY 02/04 1000 CAN PO 02/08 0959 Prednisone 40 MG DAILY 02/04 1000 AC PO 02/05 0959 Prednisone 60 MG DAILY 02/03 1000 DC 02/03 PO 02/04 1001 1104 Senna/Docusate Sodium 1 TAB BID 02/02 1000 AC 02/03 PO 1104 Results Last 48 Hrs of Labs/Mics: Laboratory Tests 02/03/18 0520: Anion Gap 4 L, Estimated GFR > 60, BUN/Creatinine Ratio 25.0, CBC w Diff MAN DIFF ORDERED, RBC 2.86 L, MCV 88.9, MCH 29.0, MCHC 32.6 L, RDW 17.2 H, MPV 7.4, Gran % 93.2 H, Lymphocytes % 3.9 L, Monocytes % 2.9, Eosinophils % 0, Basophils % 0, Absolute Granulocytes 48.9 H, Segmented Neutrophils 67, Band Neutrophils 18 H, Absolute Lymphocytes 2.0, Lymphocytes 2 L, Monocytes 3, Absolute Monocytes 1.5 H, Absolute Eosinophils 0, Absolute Basophils 0, Metamyelocytes 5 H, Myelocytes 5 H, Nucleated RBCs 1 H, Platelet Estimate VERIFIED BY SMEAR, Polychromasia 1+, Poikilocytosis 1+, Basophilic Stippling 1+, Anisocytosis 1+, Ovalocytes 1+ 02/02/18 0436: Anion Gap 3 L, Estimated GFR > 60, Glucose 153 H, Calcium 8.0 L, Phosphorus 3.0, Magnesium 2.2, Total Bilirubin 0.4, AST 31, ALT 25, Albumin 2.3 L, CBC w Diff MAN DIFF ORDERED, RBC 2.84 L, MCV 88.8, MCH 28.9, MCHC 32.5 L, RDW 17.2 H, MPV 7.9, Gran % 95.3 H, Lymphocytes % 2.2 L, Monocytes % 2.5, Eosinophils % 0, Basophils % 0, Absolute Granulocytes 39.6 H, Segmented Neutrophils 60, Band Neutrophils 20 H, Absolute Lymphocytes 0.9 L, Lymphocytes 8 L, Monocytes 3, Absolute Monocytes 1.0 H, Absolute Eosinophils 0, Absolute Basophils 0, Metamyelocytes 7 H, Myelocytes 2 H, Nucleated RBCs 1 H, Platelet Estimate ADEQUATE, Polychromasia 1+, Basophilic Stippling 1+, Anisocytosis 1+, Stomatocytes 1+ Recent Imaging Studies: CXR 02/02/2018: Left lower lobe and right mid and lower lung airspace opacities consistent with pneumonia. Assessment/Plan Assessment/Plan [id number] w/ hx previous hyponatremia, long-standing tob use, HTN, HLD, & CAD who was recently hospitalized here (10/31-11/05/2017) after presenting w/ new onset HFpEF and the discovery of anemia for which he initially refused endoscopy /colonoscopy and who after a stable initial course became hypotensive on 2718 w/ ECG changes, positive troponins, and worsening LV function by echo who was stabilized and ultimately transferred to [facility] where he underwent urgent cardiac catheterization that revealed a high-grade proximal LAD stenosis for which he underwent PCI/HARPREET (Synergy) w/ gradual improvement in his overall status and who presented from [facility] with complaints of weakness and the discovery of profound anemia requiring admission (11/26/2017-12/01/2017) w/ the ultimate discovery of a 5 cm x 6 cm ulcerated, friable, irregular, necrotic antral lesion by EGD on 11/27/2017 w/ pathology specimen c/w adenocarcinoma who presented to the ED for evaluation/management after his visiting nurse found him to be hypoxemic (02 78% on RA) w/ evidence of PNA. He continues to improve on his present regimen and is afebrile w/ a significantly elevated WBC count felt 2/2 to steroid therapy. Recommendations: * Continue on steroids and antimicrobial therapy as per ID/pulmonary medicine. * Note drop in H/H since admission. Check all stools for occult blood. Aim to maintain hemoglobin at or above 8.0 g/dl, given his known history of CAD. * GI consultation if his stool is heme positive. Continue PPI. * Continue dual antiplatelet therapy given recent deployment of HARPREET. * DVT prophylaxis. Continue telemetry? No
[2018-02-03 21:30] VITALS: BP 122/60
[2018-02-04 07:07] VITALS: BP 114/69
[2018-02-04 08:14] LABS: ABSOLUTE BASOPHIL COUNT 0 /CUMM (0.0-0.2); ABSOLUTE EOSINOPHIL COUNT 0 /CUMM (0.0-0.7); ABSOLUTE GRANULOCYTE CT 60.2 /CUMM (1.4-6.5); ABSOLUTE LYMPH COUNT 1.8 /CUMM (1.2-3.4); ABSOLUTE MONOCYTE COUNT 1.3 /CUMM (0.10-0.60); BASOPHIL % 0 % (0.0-2.0); EOSINOPHIL % 0 % (0-5); GRANULOCYTE % 95.2 % (42.2-75.2); HEMATOCRIT 27.4 % (42-52); MEAN CORPUSCULAR HGB CONC 32.7 G/DL (33.0-37.0); MEAN CORPUSCULAR VOLUME 88.8 FL (80.0-94.0); MEAN PLATELET VOLUME 7.3 FL (7.4-10.4); PLATELET COUNT 195 /CUMM (130-400); RBC DISTRIBUTION WIDTH 17.3 % (11.5-14.5); RED BLOOD CELL CT 3.08 /CUMM (4.70-6.10)
[2018-02-04 08:42] LABS: WHITE BLOOD CELL COUNT 63.2 /CUMM (4.8-10.8)
--- NOTE | 2018-02-04 08:54 | PN- Housestaff ---
Rex Ruiz 02/04/18 0849: Subjective Follow-up For: Acute hypoxemic hypercarbic respiratory failure Suspected pneumonia, treated for healthcare associated, off antibiotics Subjective: Feels well overall. Was on BiPAP overnight. States having the good night sleep. Good appetite. No breathing difficulty. Mentating well. Intermittent cough. No fevers or chills overnight. No reported diarrhea. No nausea or vomiting. Review of Systems Constitutional: Reports: see HPI. Objective Last 24 Hrs of Vital Signs/I&O Vital Signs Date Time Temp Pulse Resp B/P B/P Pulse O2 O2 Flow FiO2 Mean Ox Delivery Rate 02/04 0849 95 Nasal 1.0L Cannula 02/04 0707 97.9 63 18 114/69 94 02/03 2136 94 Nasal 1.0L Cannula 02/03 2130 97.9 84 18 122/60 94 Nasal 1.0L Cannula 02/03 1900 88 Room Air 02/03 1600 92 Nasal 1.0L Cannula 02/03 1447 98.0 74 20 114/50 97 Room Air 02/03 1413 91 Room Air 02/03 1315 96 Room Air 02/03 1104 76 130/64 02/03 1028 96 Nasal 1.0L Cannula Intake & Output 02/04 1600 02/04 0800 02/04 0000 Intake Total Output Total 450 550 Balance -450 -550 Output, Urine 450 550 Patient 179 lb Weight Weight Bed scale Measurement Method Physical Exam General Appearance: Alert, Oriented X3, Cooperative Cardiovascular: Regular Rate, Normal S1, Normal S2 Lungs: Clear to Auscultation, Normal Air Movement Extremities: No Clubbing, No Cyanosis, No Edema Current Medications: Current Medications Sig/Lacey Start time Last Medication Dose Route Stop Time Status Admin Albuterol Sulfate 3 ML TID 01/31 1600 AC 02/04 INH 0837 Artificial Tears 2 GTT 4 TIMES/DAY PRN 02/02 1730 AC 02/03 OPH 1802 Aspirin Buffered 81 MG DAILY 01/31 1000 AC 02/03 PO 1105 Atorvastatin Calcium 80 MG 1700 01/31 1700 AC 02/03 PO 1802 Bisacodyl 10 MG ONCE ONE 02/04 0730 DC MN 02/04 0731 Ceftazidime 1,000 MG IQ8 01/31 0000 DC 02/03 IV 0831 Clopidogrel Bisulfate 75 MG DAILY 01/31 1000 AC 02/03 PO 1105 Ferrous Sulfate 325 MG DAILY 01/31 1000 AC 02/03 PO 1104 Ipratropium [place] 2.5 ML TID 01/31 1600 AC 02/04 INH 0837 Melatonin 6 MG AT BEDTIME 01/31 2200 AC 02/03 PO 2123 Metoprolol Succinate 50 MG DAILY 01/31 1000 AC 02/03 PO 1104 Omeprazole 40 MG DAILY AC 01/31 0700 AC 02/04 PO 0624 Patient Medication 1 ED ONE ONE 02/03 1515 DC 02/04 Teaching ED 02/03 1516 0707 Polyethylene Glycol 17 GM DAILY 02/02 1000 AC 02/03 PO 1105 Prednisone 10 MG DAILY 02/13 1000 CAN PO 02/14 1001 Prednisone 20 MG DAILY 02/11 1000 CAN PO 02/12 1001 Prednisone 30 MG DAILY 02/09 1000 CAN PO 02/10 1001 Prednisone 10 MG DAILY 02/09 1000 AC PO 02/10 1001 Prednisone 40 MG DAILY 02/07 1000 CAN PO 02/08 1001 Prednisone 10 MG DAILY 02/07 1000 CAN PO 02/08 0959 Prednisone 20 MG DAILY 02/07 1000 AC PO 02/08 1001 Prednisone 20 MG DAILY 02/06 1000 CAN PO 02/07 0959 Prednisone 50 MG DAILY 02/05 1000 CAN PO 02/06 1001 Prednisone 30 MG DAILY 02/05 1000 CAN PO 02/06 0959 Prednisone 30 MG DAILY 02/05 1000 AC PO 02/06 1001 Prednisone 40 MG DAILY 02/04 1000 CAN PO 02/08 0959 Prednisone 40 MG DAILY 02/04 1000 AC PO 02/05 0959 Prednisone 40 MG ONCE ONE 02/04 1000 CAN PO 02/04 1001 Prednisone 30 MG DAILY 02/04 1000 CAN PO 02/10 0959 Prednisone 60 MG DAILY 02/03 1000 DC 02/03 PO 02/04 1001 1104 Senna/Docusate Sodium 1 TAB BID 02/02 1000 AC 02/03 PO 2123 Last 24 Hrs of Lab/Edilberto Results Last 24 Hrs of Labs/Mics: Laboratory Tests 02/04/18 0645: Sodium Pending, Potassium Pending, Chloride Pending, Carbon Dioxide Pending, Anion Gap Pending, BUN Pending, Creatinine Pending, BUN/Creatinine Ratio Pending , CBC w Diff MAN DIFF ORDERED, WBC Pending, RBC Pending, Hgb Pending, Hct Pending, MCV Pending, MCH Pending, MCHC Pending, RDW Pending, Plt Count Pending, MPV Pending, Gran % Pending, Lymphocytes % Pending, Monocytes % Pending, Eosinophils % Pending, Basophils % Pending, Absolute Granulocytes Pending, Segmented Neutrophils Pending, Absolute Lymphocytes Pending, Absolute Monocytes Pending, Absolute Eosinophils Pending, Absolute Basophils Pending Assessment/Plan Assessment: 82-year-old gentleman with history of coronary artery disease, recent and NSTEMI requiring stent placement, hypertension, hyperlipidemia on chemotherapy for gastric cancer, was recently brought in because of concerns for hypoxemia, admitted to telemetry and found to have worsening breathing, ABGs revealing severe hypercarbia prompting transfer to intensive care unit. Off telemetry, respiratory status stable. 1. Acute hypoxemic hypercarbic respiratory failure. Doing well off antibiotics. White count continues pending. No fevers or chills. Minimal cough with no expectoration. Continue by mouth prednisone taper. 2. Systolic heart failure, last known EF 35% in addition to diastolic failure. Lasix on hold. BUN/creatinine pending. We'll discuss resuming Lasix today, pending sodium and kidney function results. 3. Metabolic disturbances. Stable. Continue to monitor. Full code. DVT prophylaxis-Alps. Heart healthy diet. Problem List: 1. Acute respiratory failure with hypoxia and hypercarbia Pain Ratin Pain Location: None Pain Goal: Remain pain free Pain Plan: When necessary Tomorrow's Labs & Rationales: White count Kidney function Davion ERICKSON,Reji 02/04/18 1500: Attending MD Review Statement Attending Statement Attending MD Statement: examined this patient, discuss w/resident/PA/[employer] SUPERVISOR, agreed w/resident/PA/[employer] SUPERVISOR, reviewed EMR data (avail), discussed with nursing, discussed with case mgmt, amended to note Attending Assessment/Plan: Patient seen and examined. Resting comfortably not in any acute distress. Denies chest pain or shortness of breath. Denies palpitations. Ambulating with the aid of a walker. On examination he is not in any distress. Lungs are clear bilaterally. Abdomen is soft and nontender. No peripheral edema. Hemoglobin level is stable. Patient is guaiac-positive however this is not surprising given his history of gastric cancer. White cell count continues to trend upwards. Recommendations: -Patient continues to do well off antibiotic therapy. -He is elevated white cell count was discussed with the hematology service. Their impression is that this is all secondary to Neulasta which he received prior to admission. Effects may linger on for up to 2 weeks. -Pulmonology follow-up appreciated. Recommendations from the pulmonology service at 2 continue BiPAP therapy tonight and have patient off BiPAP therapy tomorrow night. -Discontinue telemetry monitoring and transfer to the general medical service. -Taper off steroid therapy. -Anticipate discharge in 48 hours once cleared by the pulmonology service. -No need to repeat serum chemistry in a.m. -Patient complains of some discomfort in the oral cavity. On examination he has some mild oral sores. Recommend starting patient on oral lozenges.
--- NOTE | 2018-02-04 10:21 | PN- Pulmonary ---
Subjective HPI/Critical Care Issues: pt seen and examined comfortable on room air wbc is elevated Objective Current Medications: Current Medications Sig/Lacey Start time Last Medication Dose Route Stop Time Status Admin Albuterol Sulfate 3 ML TID 01/31 1600 AC 02/04 INH 0837 Artificial Tears 2 GTT 4 TIMES/DAY PRN 02/02 1730 AC 02/04 OPH 0906 Aspirin Buffered 81 MG DAILY 01/31 1000 AC 02/04 PO 0903 Atorvastatin Calcium 80 MG 1700 01/31 1700 AC 02/03 PO 1802 Bisacodyl 10 MG ONCE ONE 02/04 0730 DC 02/04 [place] 02/04 0731 0907 Ceftazidime 1,000 MG IQ8 01/31 0000 DC 02/03 IV 0831 Clopidogrel Bisulfate 75 MG DAILY 01/31 1000 AC 02/04 PO 0903 Ferrous Sulfate 325 MG DAILY 01/31 1000 AC 02/04 PO 0903 Ipratropium [place] 2.5 ML TID 01/31 1600 AC 02/04 INH 0837 Melatonin 6 MG AT BEDTIME 01/31 2200 AC 02/03 PO 2123 Metoprolol Succinate 50 MG DAILY 01/31 1000 AC 02/04 PO 0906 Omeprazole 40 MG DAILY AC 01/31 0700 AC 02/04 PO 0624 Patient Medication 1 ED ONE ONE 02/03 1515 DC 02/04 Teaching ED 02/03 1516 0707 Polyethylene Glycol 17 GM DAILY 02/02 1000 AC 02/03 PO 1105 Prednisone 10 MG DAILY 02/13 1000 CAN PO 02/14 1001 Prednisone 20 MG DAILY 02/11 1000 CAN PO 02/12 1001 Prednisone 30 MG DAILY 02/09 1000 CAN PO 02/10 1001 Prednisone 10 MG DAILY 02/09 1000 AC PO 02/10 1001 Prednisone 40 MG DAILY 02/07 1000 CAN PO 02/08 1001 Prednisone 10 MG DAILY 02/07 1000 CAN PO 02/08 0959 Prednisone 20 MG DAILY 02/07 1000 AC PO 02/08 1001 Prednisone 20 MG DAILY 02/06 1000 CAN PO 02/07 0959 Prednisone 50 MG DAILY 02/05 1000 CAN PO 02/06 1001 Prednisone 30 MG DAILY 02/05 1000 CAN PO 02/06 0959 Prednisone 30 MG DAILY 02/05 1000 AC PO 02/06 1001 Prednisone 40 MG DAILY 02/04 1000 CAN PO 02/08 0959 Prednisone 40 MG DAILY 02/04 1000 AC 02/04 PO 02/05 0959 0903 Prednisone 40 MG ONCE ONE 02/04 1000 CAN PO 02/04 1001 Prednisone 30 MG DAILY 02/04 1000 CAN PO 02/10 0959 Prednisone 60 MG DAILY 02/03 1000 DC 02/03 PO 02/04 1001 1104 Senna/Docusate Sodium 1 TAB BID 02/02 1000 AC 02/04 PO 0903 Vital Signs & I&O Last 24 Hrs of Vitals and I&O: Vital Signs Date Time Temp Pulse Resp B/P B/P Pulse O2 O2 Flow FiO2 Mean Ox Delivery Rate 02/04 0906 80 116/60 02/04 0849 95 Nasal 1.0L Cannula 02/04 0707 97.9 63 18 114/69 94 02/03 2136 94 Nasal 1.0L Cannula 02/03 2130 97.9 84 18 122/60 94 Nasal 1.0L Cannula 02/03 1900 88 Room Air 02/03 1600 92 Nasal 1.0L Cannula 02/03 1447 98.0 74 20 114/50 97 Room Air 02/03 1413 91 Room Air 02/03 1315 96 Room Air 02/03 1104 76 130/64 02/03 1028 96 Nasal 1.0L Cannula Intake & Output 02/04 1600 02/04 0800 03 0000 Intake Total Output Total 450 550 Balance -450 -550 Output, Urine 450 550 Patient 179 lb 179 lb Weight Weight Bed scale Measurement Method Exam Other Physical Findings: gen awake heent ncat cvs s1, s2 lungs bilateral crackles/rhonchi abd soft, bs+ ext without edema Results Last 24 Hrs of Lab Results: Laboratory Tests 02/04/18 0645: Anion Gap 6, Estimated GFR > 60, BUN/Creatinine Ratio 18.8, CBC w Diff MAN DIFF ORDERED, RBC 3.08 L, MCV 88.8, MCH 29.0, MCHC 32.7 L, RDW 17.3 H, MPV 7.3 L, Gran % 95.2 H, Lymphocytes % 2.8 L, Monocytes % 2.0, Eosinophils % 0, Basophils % 0, Absolute Granulocytes 60.2 H, Segmented Neutrophils 72, Band Neutrophils 10 H, Absolute Lymphocytes 1.8, Lymphocytes 14 L, Monocytes 4, Absolute Monocytes 1.3 H, Absolute Eosinophils 0, Absolute Basophils 0, Platelet Estimate VERIFIED BY SMEAR, Normocytic RBCs VERIFIED, Normochromic RBCs VERIFIED Impression/Plan Impression/Plan Impression/Plan: Impressoin 82 year old man. Hx significant for gastric cancer underoing chemotherapy. HTN, diastolic chf, hx of osteomyelitis. Hx of ACS with pci. * leukocytosis secondary to either neupogen use vs pneumonia, possible leukomoid reaction Plan -cont abx, f/u ID recommendations -prednisone taper as ordered -underlying COPD with exacerbation as well -cont bipap overnight tonight then will trial without bipap -f/u cardiology recs -trc/nebs -f/u all cultures DVT prophylaxis at all times
[2018-02-04 14:42] VITALS: BP 120/64
--- NOTE | 2018-02-04 15:43 | Discharge Summary ---
Visit Information Visit Dates Admission Date: 01/30/18 Discharge Date: 02/05/18 Hospital Course Course Attending Physician: Reji Ricardo MD Primary Care Physician: Miguelito Vicente MD Hospital Course: 82-year-old gentleman with past medical history significant for hypertension, hyperlipidemia, diastolic CHF, lumbar osteomyelitis in 2017, acute coronary syndrome requiring PCI, status post HARPREET placement, recent diagnosis of gastric cancer followed by Dr. Jaramillo at [place] presented to ED on 2017 after feeling weak and tired. At that time, patient was also complaining of diarrhea. At the time of admission, patient did not have any nausea, vomiting or melena. Reportedly, patient also had low oxygen saturations, as low as 70s as reported by patient's visiting nurse prior to admission. Vitals upon admission: Temperature 99.2, pulse 84, RR 20, blood pressure 129/60, saturating 98% on 2 L nasal cannula, initially saturating 70s on room air on arrival On exam: A O 1, cooperative, no acute distress, neck supple, JVD normal, no lymphadenopathy, mucosa dry, no focal neurological deficit, significant bilateral lower extremity edema, no obvious skin rashes or inflammation, mild excoriation around buttocks but no pressure ulcers CVS: S1-S2, RRR. RS: Crackles bilaterally at bases, no wheezing. Abdomen: Soft, NT, ND, bowel sounds present. Patient was found to have significant leukocytosis with left shift and bandemia. His proBNP was 2380 (baseline 3000). CTA chest was obtained given concerns for pulmonary embolism, which came back negative and showed bibasilar airspace disease. Patient was admitted with a diagnosis of pneumonia, given hypoxemia and leukocytosis. 1. Acute hypoxemic and hypercarbic respiratory failure secondary to suspected healthcare associated pneumonia. Patient was started on broad-spectrum antibiotics with IV ceftazidime and IV vancomycin. On day 2 of admission, patient did become very confused and obtained ABG showed severe acidosis. This prompted transfer to intensive care unit from telemetry. Patient received nocturnal BiPAP with eventual improvement in his symptoms and was transferred back to telemetry. Patient's cough was without expectoration, and a sputum culture could not be obtained. A nasal MRSA surveillance culture was negative and vancomycin was discontinued on second day. The patient was empirically treated with IV ceftazidime until 02/03/2018. Patient was seen by infectious disease specialist during his course. 2. History of CAD and congestive heart failure, diastolic. It was ascertained that the patient did not have any acute heart failure at the time of admission. His troponins remained negative and his EKGs were unrevealing of any coronary event. His usual cardiac medications were continued, and he was monitored on telemetry initially for frequent ventricular ectopy. No treatment changes were made for his ventricular ectopy. Patient's Lasix was held while inpatient due to concerns for EVELIN as well as hyponatremia. Patient's home dose of Lasix will be resumed upon discharge. 3. COPD exacerbation. Patient was treated with inhalers, nebulizers and IV steroids which were gradually changed to by mouth steroids with a quick taper. He did require BiPAP support for 24 hours with subsequent nocturnal BiPAP for symptom improvement. Patient's respiratory status remained stable following BiPAP use. Patient was trialed off BIPAP and his breathing status remained stable. On ambulation, Mr. Merritt did experience low oxygen saturations 86 % climbing stairs and he was prescribed home oxygen by pulmonary team. Patient will follow-up with eating disorder psychologist as an outpatient. 4. Persistent leukocytosis. Patient remained afebrile, on antibiotics as well as off antibiotics. His white count continued to rise (24.4 - 4th January, 41.5 - 5th January, 52.5 - 6th January, 63.2 - 7th January) and plateued at 63.3 on 02/05/18. Patient was evaluated by hematology service, and this was attributed to recent Neulasta use, in addition to recent infection as well as a corticosteroid use. Patient will follow-up with his oncologist Dr. Reena Jaramillo as an outpatient for his gastric cancer(on FLOT chemotherapy). Allergies: Coded Allergies: No Known Allergies (12/06/16) Disposition Summary Disposition Principal Diagnosis: Acute hypoxemic hypercarbic respiratory failure secondary to Pneumonia. Additional Diagnosis: Persistent Leukocytosis, combination of Neulasta use, infection and steroids. History of CHF Discharge Disposition: home health services Discharge Instructions General Discharge Information Code Status: Full Code Patient's Diet: Heart Healthy Diet Patient's Activity: As tolerated, return to baseline. Work with PT. Follow-Up Instructions/Appts: Please follow up with PCP in 1-2 weeks. Please follow up with Team Psychologist in 1-2 weeks. Please follow up with Web Weaver in 1-2 weeks. Please follow up with Oncologist in 1-2 weeks. Medications at Discharge Discharge Medications: Continue taking these medications: Aspirin (Ecotrin*) 81 MG TABLET. 1 Tablet ORAL DAILY Comments: Last Taken: 02/05/18 Time: 0938 Clopidogrel Bisulfate (Clopidogrel) 75 MG TABLET 1 Tablet ORAL DAILY Qty = 30 Comments: Last Taken: 02/05/18 Time: 0938 Atorvastatin Calcium (Lipitor) 80 MG TABLET 1 Tablet ORAL DAILY Comments: Last Taken: 02/04/18 Time: 1637 Ipratropium/Albuterol Sulfate (Iprat-Albut 0.5-3(2.5) MG/3 Ml) 0.5 MG-3 MG (2.5 MG BASE)/3 ML AMPUL.NEB 1 VIAL Inhale through mouth Q6H Comments: Last Taken: 02/05/18 Time: 0759 GIVEN BY RESPIRATORY THERAPY Melatonin (Melatonin) 3 MG TABLET 2 Tablet ORAL TAKE AT BEDTIME Comments: Last Taken:02/04/18 Time:2214 Sennosides/Docusate Sodium (Senna S Tablet) 8.6 MG-50 MG TABLET 2 Tablet ORAL TWICE DAILY Comments: Last Taken: 02/05/18 Time: 0937 Lisinopril (Zestril) 2.5 MG TABLET 1 Tablet ORAL TAKE AT BEDTIME Comments: NOT GIVEN Pantoprazole Sodium (Protonix) 40 MG TABLET. 1 Tablet ORAL TWICE DAILY Qty = 60 Comments: NOT GIVEN Furosemide (Lasix) 20 MG TABLET 1 Tablet ORAL As Directed Comments: Last Taken:NOT GIVEN Time: Metoprolol Succinate (Metoprolol Succinate) 50 MG TAB.ER.24H 1 Tablet ORAL DAILY Qty = 45 Comments: Last Taken:02/05/18 Time:0934 Ferrous Sulfate (Ferosul) 325 MG (65 MG IRON) TABLET 1 Tablet ORAL THREE TIMES DAILY Comments: Last Taken:02/05/18 Time:0938 Nutritional Supplement (Resource 2.0) (Unknown Strength) LIQUID 360 Milliliters ORAL DAILY Comments: NOT GIVEN Diphenoxylate HCl/Atropine (Lomotil 2.5-0.025 MG Tablet) 2.5 MG-0.025 MG TABLET 1 Tablet ORAL As Directed Qty = 30 Comments: NOT GIVEN Oxycodone HCl (Oxycodone HCl) 5 MG TABLET 1 Tablet ORAL Q4H as needed for PAIN Qty = 60 Comments: NOT GIVEN Start taking the following new medications: Prednisone (Prednisone) 20 MG TABLET 1 Tablet ORAL GIVE ONCE Qty = 1 No Refills Instructions: TAKE ON 02/06/18 Comments: Last Taken:02/05/18 Time:0937 Copies To: Mami ERICKSON,Juan Miguel Nunez; Ella ERICKSON,Reena; Kristen ERICKSON,Hung; Angie ERICKSON,Dell; Jules ERICKSON, Miguelito Nunez Attending MD Review Statement Documenting Attending: Reji Ricardo MD Other Findings: Medically stable to be discharged home
--- NOTE | 2018-02-04 16:05 | PN- Cardiology ---
Subjective Subjective: Continues to slowly feel improved. Objective Vital Signs and I&Os Vital Signs Date Time Temp Pulse Resp B/P B/P Pulse O2 O2 Flow FiO2 Mean Ox Delivery Rate 02/04 1442 98.3 82 20 120/64 93 Nasal 1.0L Cannula 02/04 1350 94 Room Air 02/04 0906 80 116/60 02/04 0849 95 Nasal 1.0L Cannula 02/04 0800 Nasal 1.0L Cannula 02/04 0707 97.9 63 18 114/69 94 02/03 2136 94 Nasal 1.0L Cannula 02/03 2130 97.9 84 18 122/60 94 Nasal 1.0L Cannula 02/03 1900 88 Room Air Intake & Output 02/04 1600 02/04 0800 02/04 0000 02/03 1600 02/03 0800 02/03 0000 Intake Total 610 400 Output Total 450 550 500 650 700 Balance -450 -550 110 -650 -300 Intake, IV 50 Intake, Oral 560 400 Number 1 Bowel Movements Output, Urine 450 550 500 650 700 Patient 179 lb 179 lb 180 lb Weight Weight Bed scale Bed scale Measurement Method Physical Exam: Well-developed, well-nourished elderly male who appears pale, but in no acute distress w/ nasal oxygen in place. Neck: No JVD, no bruits. Lungs: Decreased breath sounds at the bases bilaterally. Heart: S1, S2 with no murmur, gallop, or rub. Abdomen: Soft, nontender, positive bowel sounds. Extremities: 1+ bilateral lower extremity edema. Assessment/Plan Assessment/Plan [id number] w/ hx previous hyponatremia, long-standing tob use, HTN, HLD, & CAD who was recently hospitalized here (10/31-11/05/2017) after presenting w/ new onset HFpEF and the discovery of anemia for which he initially refused endoscopy /colonoscopy and who after a stable initial course became hypotensive on 2718 w/ ECG changes, positive troponins, and worsening LV function by echo who was stabilized and ultimately transferred to [facility] where he underwent urgent cardiac catheterization that revealed a high-grade proximal LAD stenosis for which he underwent PCI/HARPREET (Synergy) w/ gradual improvement in his overall status and who presented from [facility] with complaints of weakness and the discovery of profound anemia requiring admission (11/26/2017-12/01/2017) w/ the ultimate discovery of a 5 cm x 6 cm ulcerated, friable, irregular, necrotic antral lesion by EGD on 11/27/2017 w/ pathology specimen c/w adenocarcinoma who presented to the ED for evaluation/management after his visiting nurse found him to be hypoxemic (02 78% on RA) w/ evidence of PNA. He continues to improve on his present regimen and is afebrile w/ a significantly elevated WBC count felt 2/2 to steroid therapy. Recommendations: * Continue on steroids and antimicrobial therapy as per ID/pulmonary medicine. * Check all stools for occult blood. Aim to maintain hemoglobin at or above 8.0 g/dl, given his known history of CAD. * GI consultation if his stool is heme positive. Continue PPI. * Continue dual antiplatelet therapy given recent deployment of HARPREET. * DVT prophylaxis. Continue telemetry? Yes
--- NOTE | 2018-02-04 20:40 | Patient Discharge Instructions ---
Discharge Instructions General Discharge Information Special Instructions: Please follow up with PCP in 1-2 weeks. Please follow up with [facility] in 1-2 weeks. Please follow up with [facility] Gr[facility] Operator in 1-2 weeks. Please follow up with Oncologist in 1-2 weeks. Diet Continue normal diet: No Recommended Diet: CHF diet Acute Coronary Syndrome Inclusion Criteria At DC or during hospital stay patient has or had the following: ACS DIAGNOSIS No Discharge Core Measures Meds if any: Prescribed or Continued at Discharge Meds if any: NOT Prescribed or Continued at Discharge Congestive Heart Failure Inclusion Criteria At DC or during hospital stay patient has or had the following: CHF DIAGNOSIS No Discharge Core Measures Meds if any: Prescribed or Continued at Discharge Meds if any: NOT Prescribed or Continued at Discharge Cerebrovascular accident Inclusion Criteria At DC or during hospital stay patient has or had the following: CVA/TIA Diagnosis No Discharge Core Measures Meds if any: Prescribed or Continued at Discharge Meds if any: NOT Prescribed or Continued at Discharge Venous thromboembolism Inclusion Criteria VTE Diagnosis No VTE Type NONE VTE Confirmed by (Test) NONE Discharge Core Measures - Per Current guidelines, there needs to be overlap - treatment for the first 5 days of Warfarin therapy. - If discharged on Warfarin prior to 5 days of - overlap therapy, the patient will need to be - assessed for post discharge needs including - *Post discharge parental anticoagulation - *Warfarin and/or parental anticoagulation education - *Follow up date to check INR post discharge At least 5 days overlap therapy as Inpatient No Meds if any: Prescribed or Continued at Discharge Note: Overlap Therapy is Warfarin and Anticoagulant Meds if any: NOT Prescribed or Continued at Discharge
[2018-02-04 22:43] VITALS: BP 118/74
--- NOTE | 2018-02-05 07:25 | PN- Oncology ---
Subjective Subjective: He feels better. Breathing is improving. He denies any new pain. He denies any nausea or vomiting. Review of Systems Constitutional: Denies: chills, fever. Cardiovascular: Denies: chest pain. Respiratory: Reports: short of breath (improving). Gastrointestinal: Denies: abdominal pain. Musculoskeletal: Denies: back pain. Neurological/Psychological: Denies: anxiety, confusion. Hematologic/Endocrine: Denies: bruising, bleeding. All Other Systems: Reviewed and Negative Objective Vital Signs and I&Os Vital Signs Date Time Temp Pulse Resp B/P B/P Pulse O2 O2 Flow FiO2 Mean Ox Delivery Rate 02/05 0000 92 Room Air 02/04 2243 98.5 83 23 118/74 92 02/04 1901 94 Nasal 2.0L Cannula 02/04 1442 98.3 82 20 120/64 93 Nasal 1.0L Cannula 02/04 1350 94 Room Air 02/04 0906 80 116/60 02/04 0849 95 Nasal 1.0L Cannula 02/04 0800 Nasal 1.0L Cannula Intake & Output 02/05 0800 02/05 0000 02/04 1600 02/04 0800 02/04 0000 02/03 1600 Intake Total 200 300 610 Output Total 350 700 450 550 500 Balance -150 -400 -450 -550 110 Intake, IV 50 Intake, Oral 200 300 560 Number 1 Bowel Movements Output, Urine 350 700 450 550 500 Patient 82.129 kg 81.306 kg 81.306 kg Weight Weight Bed scale Measurement Method Physical Exam: General Appearance: no apparent distress, alert, awake, comfortable, thin Head: atraumatic, normal appearance Respiratory: chest non-tender, no respiratory distress, quiet respiration, decreased breath sounds, on 1L NC Cardiovascular: regular rate/rhythm, edema Gastrointestinal: normal bowel sounds, soft, non-tender Extremities: pedal edema Neurologic/Psych: awake, alert, oriented x 3 Skin: warm/dry Current Medications: Current Medications Sig/Lacey Start time Last Medication Dose Route Stop Time Status Admin Albuterol Sulfate 3 ML TID 01/31 1600 AC 02/04 INH 1858 Artificial Tears 2 GTT 4 TIMES/DAY PRN 02/02 1730 AC 02/04 OPH 0906 Aspirin Buffered 81 MG DAILY 01/31 1000 AC 02/04 PO 0903 Atorvastatin Calcium 80 MG 1700 01/31 1700 AC 02/04 PO 1637 Bisacodyl 10 MG ONCE ONE 02/04 0730 DC 02/04 RI 02/04 0731 0907 Clopidogrel Bisulfate 75 MG DAILY 01/31 1000 AC 02/04 PO 0903 Ferrous Sulfate 325 MG DAILY 01/31 1000 AC 02/04 PO 0903 Ipratropium [place] 2.5 ML TID 01/31 1600 AC 02/04 INH 1858 Melatonin 6 MG AT BEDTIME 01/31 2200 AC 02/04 PO 2214 Metoprolol Succinate 50 MG DAILY 01/31 1000 AC 02/04 PO 0906 Nystatin 5 ML 4 TIMES/DAY 02/04 2200 AC PO Omeprazole 40 MG DAILY AC 01/31 0700 AC 02/05 PO 0643 Polyethylene Glycol 17 GM DAILY 02/02 1000 AC 02/03 PO 1105 Prednisone 10 MG DAILY 02/09 1000 CAN PO 02/10 1001 Prednisone 10 MG DAILY 02/07 1000 CAN PO 02/08 0959 Prednisone 20 MG DAILY 02/07 1000 DC PO 02/08 1001 Prednisone 20 MG DAILY 02/06 1000 CAN PO 02/07 0959 Prednisone 30 MG DAILY 02/05 1000 CAN PO 02/06 0959 Prednisone 30 MG DAILY 02/05 1000 CAN PO 02/06 1001 Prednisone 20 MG DAILY 02/05 1000 AC PO 02/06 1001 Prednisone 40 MG DAILY 02/04 1000 DC 02/04 PO 02/05 0959 0903 Prednisone 40 MG ONCE ONE 02/04 1000 CAN PO 02/04 1001 Prednisone 30 MG DAILY 02/04 1000 CAN PO 02/10 0959 Senna/Docusate Sodium 1 TAB BID 02/02 1000 AC 02/04 PO 2214 Results Last 24 Hours of Lab Results: Laboratory Tests 02/05 0649 Chemistry Sodium Pending Potassium Pending Chloride Pending Carbon Dioxide Pending Anion Gap Pending BUN Pending Creatinine Pending BUN/Creatinine Ratio Pending Hematology CBC w Diff Pending WBC Pending RBC Pending Hgb Pending Hct Pending MCV Pending MCH Pending MCHC Pending RDW Pending Plt Count Pending MPV Pending Assessment/Plan Assessment/Recommendations: Mr. Merritt is an 82-year-old male with HTN, HLD, diastolic heart failure, NSTEMI s/p PCI with HARPREET, and stage III gastric cancer being treated by Dr. Reena Jaramillo with FLOT who presented to the hospital with dyspnea and hypoxia. He was noted to be hypoxic on RA with oxygen saturation of around 70s. Imaging studies suggest pneumonia. He was previous on antibiotic with vancomycin and ceftazidime. He is currently off antiobiotics. Infectious disease and pulmonology have been consulted and are following patient. Blood culture was positive for dipththeroids on one set which is like a contaminant. Repeated cultures have been negative. He was on Solu-Medrol and is being transitioned to prednisone taper. Leukocytosis continues to increase. Differential on the CBC is mostly neutrophils with bands. This is likely effect from Neulasta (01/24/2018 ) and steroid. It should improve within the next few days. Effects of Neulasta can last up to 14 days. He will need to follow up with Dr. Jaramillo after discharge. Acute hypoxic respiratory failure secondary to pneumonia: -follow up pulmonology/ID recommendations Leukocytosis: -monitor CBC -no intervention needed at the moment Stage III gastric cancer: -follow up with Dr. Reena Jaramillo after discharge -please call her office to update on status at time of discharge Please call [phone] with any questions or concerns. Contact Dr. Jaramillo's office for more patient specific oncologic questions. Problem List: 1. Gastric cancer 2. Acute respiratory failure with hypoxia and hypercarbia 3. Leukocytosis 4. Chronic anemia
[2018-02-05] MEDS ORDERED: PREDNISONE20 M1 PO (07:34)
[2018-02-05 07:36] VITALS: BP 118/66
[2018-02-05 08:15] LABS: ABSOLUTE BASOPHIL COUNT 0 /CUMM (0.0-0.2); ABSOLUTE EOSINOPHIL COUNT 0 /CUMM (0.0-0.7); ABSOLUTE LYMPH COUNT 1.7 /CUMM (1.2-3.4); ABSOLUTE MONOCYTE COUNT 0.6 /CUMM (0.10-0.60); BASOPHIL % 0 % (0.0-2.0); EOSINOPHIL % 0 % (0-5); GRANULOCYTE % 96.4 % (42.2-75.2); HEMATOCRIT 27.5 % (42-52); MEAN CORPUSCULAR HGB 28.6 PG (27.0-31.0); MEAN CORPUSCULAR HGB CONC 32.1 G/DL (33.0-37.0); MEAN CORPUSCULAR VOLUME 89.1 FL (80.0-94.0); MEAN PLATELET VOLUME 7.3 FL (7.4-10.4); PLATELET COUNT 181 /CUMM (130-400); RBC DISTRIBUTION WIDTH 17.9 % (11.5-14.5); RED BLOOD CELL CT 3.08 /CUMM (4.70-6.10)
--- NOTE | 2018-02-05 08:36 | PN- Housestaff ---
Rex Ruiz 02/05/18 0835: Subjective Follow-up For: Acute hypoxemic hypercarbic respiratory failure Suspected pneumonia, treated for healthcare associated, off antibiotics Subjective: Feels well. Good appetite. No breathing difficulty. Mentating well. Intermittent cough. No fevers or chills overnight. No reported diarrhea. No nausea or vomiting. Review of Systems Constitutional: Reports: see HPI. Objective Last 24 Hrs of Vital Signs/I&O Vital Signs Date Time Temp Pulse Resp B/P B/P Pulse O2 O2 Flow FiO2 Mean Ox Delivery Rate 02/05 0802 93 Nasal 1.0L Cannula 02/05 0736 98.9 75 28 118/66 95 Nasal 1.0L Cannula 02/05 0000 92 Room Air 02/04 2243 98.5 83 23 118/74 92 02/04 1901 94 Nasal 2.0L Cannula 02/04 1442 98.3 82 20 120/64 93 Nasal 1.0L Cannula 02/04 1350 94 Room Air 02/04 0906 80 116/60 02/04 0849 95 Nasal 1.0L Cannula Intake & Output 02/05 1600 02/05 0800 / 0000 Intake Total 120 200 Output Total 700 350 Balance -580 -150 Intake, IV 20 Intake, Oral 100 200 Output, Urine 700 350 Patient 181 lb Weight Physical Exam General Appearance: Alert, Oriented X3 Cardiovascular: Regular Rate, Normal S1, Normal S2 Lungs: Clear to Auscultation, Normal Air Movement Abdomen: Normal Bowel Sounds, Soft Extremities: No Clubbing, No Cyanosis, No Edema Current Medications: Current Medications Sig/Lacey Start time Last Medication Dose Route Stop Time Status Admin Albuterol Sulfate 3 ML TID 01/31 1600 AC 02/05 INH 0759 Artificial Tears 2 GTT 4 TIMES/DAY PRN 02/02 1730 AC 02/04 OPH 0906 Aspirin Buffered 81 MG DAILY 01/31 1000 AC 02/04 PO 0903 Atorvastatin Calcium 80 MG 1700 01/31 1700 AC 02/04 PO 1637 Clopidogrel Bisulfate 75 MG DAILY 01/31 1000 AC 02/04 PO 0903 Ferrous Sulfate 325 MG DAILY 01/31 1000 AC 02/04 PO 0903 Ipratropium [place] 2.5 ML TID 01/31 1600 AC 02/05 INH 0759 Melatonin 6 MG AT BEDTIME 01/31 2200 AC 02/04 PO 2214 Metoprolol Succinate 50 MG DAILY 01/31 1000 AC 02/04 PO 0906 Nystatin 5 ML 4 TIMES/DAY 02/04 2200 AC PO Omeprazole 40 MG DAILY AC 01/31 0700 AC 02/05 PO 0643 Polyethylene Glycol 17 GM DAILY 02/02 1000 AC 02/03 PO 1105 Prednisone 10 MG DAILY 02/09 1000 CAN PO 02/10 1001 Prednisone 20 MG DAILY 02/07 1000 DC PO 02/08 1001 Prednisone 30 MG DAILY 02/05 1000 CAN PO 02/06 1001 Prednisone 20 MG DAILY 02/05 1000 AC PO 02/06 1001 Prednisone 40 MG DAILY 02/04 1000 DC 02/04 PO 02/05 0959 0903 Senna/Docusate Sodium 1 TAB BID 02/02 1000 AC 02/04 PO 2214 Last 24 Hrs of Lab/Edilberto Results Last 24 Hrs of Labs/Mics: Laboratory Tests 02/05/18 0649: Sodium Pending, Potassium Pending, Chloride Pending, Carbon Dioxide Pending, Anion Gap Pending, BUN Pending, Creatinine Pending, BUN/Creatinine Ratio Pending , CBC w Diff Pending, WBC Pending, RBC Pending, Hgb Pending, Hct Pending, MCV Pending, MCH Pending, MCHC Pending, RDW Pending, Plt Count Pending, MPV Pending Assessment/Plan Assessment: 82-year-old gentleman with history of coronary artery disease, recent and NSTEMI requiring stent placement, hypertension, hyperlipidemia on chemotherapy for gastric cancer, was recently brought in because of concerns for hypoxemia, admitted to telemetry and found to have worsening breathing, ABGs revealing severe hypercarbia prompting transfer to intensive care unit. Off telemetry, respiratory status stable. 1. Acute hypoxemic hypercarbic respiratory failure. Doing well off antibiotics. White count pending. No fevers or chills. Minimal cough with no expectoration. Continue by mouth prednisone taper. Trial of nocturnal BiPAP tonight? Desaturates to 86% on ambulation. May need home oxygen. Anticipated discharge tomorrow. 2. Systolic heart failure, last known EF 35% in addition to diastolic failure. Lasix on hold. BUN/creatinine much improved. Mild hyponatremia likely represents total body sodium and total body water imbalance. Will resume Lasix upon discharge. 3. Metabolic disturbances. Stable. Continue to monitor. Full code. DVT prophylaxis-Alps. Heart healthy diet. Problem List: 1. Acute respiratory failure with hypoxia and hypercarbia Pain Ratin Pain Location: Not applicable Pain Goal: Remain pain free Pain Plan: When necessary Tomorrow's Labs & Rationales: Not needed. Reji Ricardo MD 02/05/18 1055: Attending MD Review Statement Attending Statement Attending MD Statement: examined this patient, discuss w/resident/PA/JAPANESE TUTOR, agreed w/resident/PA/JAPANESE TUTOR, reviewed EMR data (avail), discussed with nursing, discussed with case mgmt, amended to note Attending Assessment/Plan: Patient seen and examined. Resting comfortably and not in any acute distress. No issues overnight. Patient apparently did not require BiPAP therapy overnight. Denies chest pain or shortness of breath. Denies cough. He is not requiring oxygen supplementation at rest. Physical therapist did report that he desaturated into the 80s on room air while ambulating. On examination he has no jugular venous distention. He has adequate air entry bilaterally with no added sounds. Abdomen is soft and nontender. No peripheral edema. His white cell count is still elevated however the hematology service and stated that this is expected given his recent use of Neulasta and steroid therapy. It is expected to improve within the next 2 weeks. Patient medically stable to be discharged today. He has been cleared by the physical therapy service for discharge home. Patient however states that he is reluctant to go home today stating that he is weak. I did suggest discharge to care home facility for short-term rehabilitation. He adamantly does not want to go to care home home. Physical therapy service as stated that he will require home care services. Clinically he is medically stable to be discharged home. We will follow-up with case management services regarding providing additional support to the patient at home.
[2018-02-05 09:20] LABS: WHITE BLOOD CELL COUNT 63.3 /CUMM (4.8-10.8)
[2018-02-05 09:37] VITALS: BP 118/66
--- NOTE | 2018-02-05 10:20 | PN- Pulmonary ---
Subjective HPI/Critical Care Issues: pt seen and examined feeling well desaturated with ambulation some generalized weakness wbc persists, off abx Objective Current Medications: Current Medications Sig/Lacey Start time Last Medication Dose Route Stop Time Status Admin Albuterol Sulfate 3 ML TID 01/31 1600 AC 02/05 INH 0759 Artificial Tears 2 GTT 4 TIMES/DAY PRN 02/02 1730 AC 02/04 OPH 0906 Aspirin Buffered 81 MG DAILY 01/31 1000 AC 02/05 PO 0938 Atorvastatin Calcium 80 MG 1700 01/31 1700 AC 02/04 PO 1637 Clopidogrel Bisulfate 75 MG DAILY 01/31 1000 AC 02/05 PO 0938 Ferrous Sulfate 325 MG DAILY 01/31 1000 AC 02/05 PO 0938 Ipratropium [place] 2.5 ML TID 01/31 1600 AC 02/05 INH 0759 Melatonin 6 MG AT BEDTIME 01/31 2200 AC 02/04 PO 2214 Metoprolol Succinate 50 MG DAILY 01/31 1000 AC 02/05 PO 0937 Nystatin 5 ML 4 TIMES/DAY 02/04 2200 AC 02/05 PO 0937 Omeprazole 40 MG DAILY AC 01/31 0700 AC 02/05 PO 0643 Polyethylene Glycol 17 GM DAILY 02/02 1000 AC 02/05 PO 0938 Prednisone 10 MG DAILY 02/09 1000 CAN PO 02/10 1001 Prednisone 20 MG DAILY 02/07 1000 DC PO 02/08 1001 Prednisone 30 MG DAILY 02/05 1000 CAN PO 02/06 1001 Prednisone 20 MG DAILY 02/05 1000 AC 02/05 PO 02/06 1001 0938 Prednisone 40 MG DAILY 02/04 1000 DC 02/04 PO 02/05 0959 0903 Senna/Docusate Sodium 1 TAB BID 02/02 1000 AC 02/05 PO 0937 Vital Signs & I&O Last 24 Hrs of Vitals and I&O: Vital Signs Date Time Temp Pulse Resp B/P B/P Pulse O2 O2 Flow FiO2 Mean Ox Delivery Rate 02/05 0937 75 118/66 02/05 0802 93 Nasal 1.0L Cannula 02/05 0800 97 Room Air 02/05 0736 98.9 75 28 118/66 95 Nasal 1.0L Cannula 02/05 0000 92 Room Air 02/04 2243 98.5 83 23 118/74 92 02/04 1901 94 Nasal 2.0L Cannula 02/04 1442 98.3 82 20 120/64 93 Nasal 1.0L Cannula 02/04 1350 94 Room Air Intake & Output 02/05 1600 02/05 0800 02/05 0000 Intake Total 120 200 Output Total 700 350 Balance -580 -150 Intake, IV 20 Intake, Oral 100 200 Output, Urine 700 350 Patient 181 lb Weight Exam Other Physical Findings: gen awake heent ncat cvs s1, s2 lungs bilateral crackles/rhonchi abd soft, bs+ ext without edema Results Last 24 Hrs of Lab Results: Laboratory Tests 02/05/18 0649: Anion Gap 5, Estimated GFR > 60, BUN/Creatinine Ratio 17.5, CBC w Diff MAN DIFF ORDERED, RBC 3.08 L, MCV 89.1, MCH 28.6, MCHC 32.1 L, RDW 17.9 H, MPV 7.3 L, Gran % 96.4 H, Lymphocytes % 2.7 L, Monocytes % 0.9 L, Eosinophils % 0, Basophils % 0, Absolute Granulocytes 61.0 H, Segmented Neutrophils 71, Band Neutrophils 12 H, Absolute Lymphocytes 1.7, Lymphocytes 2 L, Monocytes 4, Absolute Monocytes 0.6, Absolute Eosinophils 0, Absolute Basophils 0, Metamyelocytes 11 H, Nucleated RBCs 2 H, Polychromasia 1+, Poikilocytosis 2+, Basophilic Stippling 1+, Anisocytosis 2+ Impression/Plan Impression/Plan Impression/Plan: Impressoin 82 year old man. Hx significant for gastric cancer underoing chemotherapy. HTN, diastolic chf, hx of osteomyelitis. Hx of ACS with pci. * leukocytosis likely secondary to drug effect * COPD * poss rin underlying Plan -off abx -discharge planning -qualifies for o2 (86%) on ambulation improving with o2 -outpatient sleep study, dc bipap -prednisone taper as ordered -underlying COPD with exacerbation as well -f/u cardiology recs -trc/nebs DVT prophylaxis at all times
== END 2018-02-05 15:10 | disposition home health service (06) | DRG 193 ==
LOC: ERH 15:54 → 1NO 19:52 → ERHI 19:52 → ENRESERV 20:38 → ENTRNSPT 22:16 → CRI 22:22 → 1NO 22:23 → CMPTRNSPT 22:41 → CRI 01-31 20:07 → 1NO 02-01 22:16 → ENPENDDIS 02-05 13:03 → ENTRNSPT 02-05 14:40 → EDTRNSPTSTS 02-05 14:54 → EDTRNSPT 02-05 14:54 → 1NO 02-05 15:10 → CMPTRNSPT 02-05 15:51
PROVIDERS: Emergency Medicine; Internal Medicine Hematology & Oncology; Student in an Organized Health Care Education/Training Program
DX: J18.9 Pneumonia, unspecified organism (principal); J96.01 Acute respiratory failure with hypoxia; E87.2 Acidosis; J96.02 Acute respiratory failure with hypercapnia; C16.9 Malignant neoplasm of stomach, unspecified; E87.1 Hypo-osmolality and hyponatremia; D64.9 Anemia, unspecified; I50.30 Unspecified diastolic (congestive) heart failure; J44.1 Chronic obstructive pulmonary disease with (acute) exacerbation; D72.829 Elevated white blood cell count, unspecified; I11.0 Hypertensive heart disease with heart failure; E86.0 Dehydration; D00.2 Carcinoma in situ of stomach; R19.7 Diarrhea, unspecified; Z95.5 Presence of coronary angioplasty implant and graft; E88.9 Metabolic disorder, unspecified; F17.200 Nicotine dependence, unspecified, uncomplicated; I25.10 Atherosclerotic heart disease of native coronary artery without angina pectoris; E78.5 Hyperlipidemia, unspecified
CPT/HCPCS: 1NP; 1NSP; CCU; 36415; 36592; 71045; 80307; 81001; 82436; 87040; 87070; 87071; 87086; 87449; 87450; 93005; 93010; 93306; 96374; 97116-GO; 97161-GP; 99291; J0713; J1940; J2405; J2920; J3370; J7060; J7512